=== PATIENT | female | born 1940 | race Caucasian/White ===

== ENCOUNTER → 2016-06-08 | Outpatient (CLI) | payer OTHER ==
[~2016-06-08] MED LIST: AMLO2.5T2 PO; ASCA500 PO; ASPEC81 PO; ASPI325T39 PO; BIOT50006 PO; CALC-323 PO; CYAN10005 PO; CYAN25006 PO; DABI150C PO; ERGO1TAB12 PO; ESOM1CAP34 PO; FRRS300 PO; FRS/40 PO; FURO-85 PO; GABA-113 PO; HYZ/10015 PO; LOSA100T65 PO; LOSA1TAB38 PO; MULT-506 PO; MULT60CA PO; MULTCHW PO; NEBI10TA2 PO; NRN600 PO; NRV/5 PO; OXYC1TAB3 PO; POTA8CAP6 PO; PRED1SUS3 OPR; SIMV10TA2 PO; TRAM-10 PO; ZINC PO; ZINC50TA36
[2016-06-08 17:37] LABS: BASO % 0.3 %; BASO ABS # 0.03 K/uL (0-0.2); COMPLETE YES; EOS % 2.7 %; HEMATOCRIT 33.7 % (37-47); IG% 0.3 %; LYMPH % 18.9 %; LYMPH ABS # 1.74 K/uL (1.2-3.4); MEAN CELL VOLUME 97.4 fL (80-100); MEAN CORPUSCULAR HEMOGLOBIN 32.4 pg (25-34); MEAN CORPUSCULAR HGB CONC 33.2 g/dl (32-36); MEAN PLATELET VOLUME 9.6 fL (7.4-10.4); MONO % 14.5 %; NEUT % 63.3 %; PLATELET COUNT 350 K/uL (130-400); RED BLOOD COUNT 3.46 M/uL (4.2-5.4); WHITE BLOOD COUNT 9.21 K/uL (4.8-10.8)
[2016-06-08 18:05] LABS: ALT/SGPT 31 U/L (12-78); AMYLASE 85 U/L (25-115); AST/SGOT 25 U/L (15-37); BLOOD UREA NITROGEN 32 mg/dl (7-18); BUN/CREATININE RATIO 32.5 (10-20); CALCIUM 9.8 mg/dl (8.5-10.1); CARBON DIOXIDE 30 mmol/L (21-32); CHLORIDE 107 mmol/L (98-107); GLUCOSE 124 mg/dl (70-99); POTASSIUM 3.7 mmol/L (3.5-5.1); SODIUM 144 mmol/L (136-145)
[2016-06-08 18:08] LABS: ALKALINE PHOSPHATASE 138 U/L (45-117)
== END | disposition home or self-care (01) ==
LOC: C.LAB1850 16:59
PROVIDERS: ATTEND Registered Nurse
DX: R74.8 Abnormal levels of other serum enzymes (principal)

== ENCOUNTER → 2016-06-14 | Outpatient (CLI) | payer OTHER ==
[~2016-06-14] MED LIST changes: +GADAVIST IV PRN
--- NOTE | 2016-06-14 14:41 | DIAGNOSTIC IMAGING REPORT ---
MRI OF THE BRAIN WITHOUT AND WITH IV CONTRAST CLINICAL HISTORY: R41.3 Memory [id number] POSSIBLE SEIZURE COMPARISON STUDY: No previous studies for comparison. TECHNIQUE: MRI of the brain was performed from the vertex to the skull base utilizing various T1 and T2 weighted sequences. Following the IV administration of 6.5 mL of Gadavist contrast, additional enhanced images were obtained. FINDINGS: Sagittal T1, axial diffusion, proton density and T2 weighted axial, coronal FLAIR, and pre and post axial T1-weighted images were acquired. These were supplemented with post gadolinium coronal T1 weighted images. No intra or extra-axial mass lesions are visualized. Axial diffusion-weighted images reveal no evidence of acute or subacute infarction. There is no evidence of ventricular dilatation. 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 There are extensive foci of increased T2 signal within the white matter, likely on a small vessel basis There are no abnormal flow voids. There is no evidence of pathologic enhancement. IMPRESSION: 1. No acute intracranial findings 2. No evidence of acute or subacute infarction 3. No evidence of intracranial mass 4. Old left cerebellar infarct 5. Moderately extensive foci of increased T2 signal within the white matter, likely on a small vessel basis Electronically signed by: David Underwood M.D. 06/14/2016 2:39 PM Dictated Date/Time: 06/14/2016 2:35 PM
== END | disposition home or self-care (01) ==
LOC: C.MRI 13:25
PROVIDERS: ATTEND Nurse Practitioner Adult Health
DX: R41.3 Other amnesia (principal)

== ENCOUNTER → 2016-06-21 | Outpatient (CLI) | payer OTHER ==
[~2016-06-21] MED LIST changes: -GADAVIST IV PRN
--- NOTE | 2016-06-21 16:37 | EEG Procedure Note ---
EEG Procedure Note Date of Service Jun 21, 2016. Start / End Times Start Time: 2:32 PM End Time: 2:52 PM Referring Physician ANCELMO [place] History This is a 75-year-old female who reports that she had a fall a few weeks ago with no memory of it. EEG for further evaluation of possible seizure etiology. Pertinent Home medications: Gabapentin Description This is a 21 electrode EEG with a single channel dedicated to limited EKG. The electrodes were placed in accordance with the International 10-20 system. At the start of the recording the patient was in an awake state. Background was well organized and composed of symmetric mixed alpha and beta frequencies. There was a symmetric well-formed moderate amplitude 9-10 Hz posterior dominant rhythm that was reactive to eye opening and closure. Hyperventilation was not done. Intermittent photic stimulation at various frequencies produced no abnormalities. There was no state changes or sleep transients. Interpretation This is a normal awake only routine EEG. There was no electrographic seizures or epileptiform discharges. Clinical Correlation A normal EEG does not rule out epilepsy if there is a strong clinical suspicion.
== END | disposition home or self-care (01) ==
LOC: C.NEUR 14:17
PROVIDERS: ATTEND Nurse Practitioner Adult Health
DX: R41.3 Other amnesia (principal)

== ENCOUNTER → 2016-07-26 | Outpatient (CLI) | payer OTHER ==
[2016-07-26 13:26] LABS: BLOOD UREA NITROGEN 30 mg/dl (7-18); BUN/CREATININE RATIO 34.9 (10-20); CALCIUM 9.2 mg/dl (8.5-10.1); CARBON DIOXIDE 28 mmol/L (21-32); CHLORIDE 102 mmol/L (98-107); CREATININE 0.86 mg/dl (0.60-1.20); GLUCOSE 103 mg/dl (70-99); MAGNESIUM 2.2 mg/dl (1.8-2.4); PHOSPHORUS 2.8 mg/dl (2.5-4.9); POTASSIUM 3.9 mmol/L (3.5-5.1); SODIUM 138 mmol/L (136-145)
== END | disposition home or self-care (01) ==
LOC: C.LAB1850 11:26
PROVIDERS: ATTEND Internal Medicine Nephrology
DX: N18.3 Chronic kidney disease, stage 3 (moderate) (principal)

== ENCOUNTER → 2016-08-23 | Outpatient (CLI) | payer OTHER ==
--- NOTE | 2016-08-23 13:04 | DIAGNOSTIC IMAGING REPORT ---
ULTRASOUND ART DOP LOWER EXT BILAT CLINICAL HISTORY: PAINFUL LOWER EXTREMITIES claudication. Pain. COMPARISON STUDY: None FINDINGS: Real-time as well as Doppler evaluation of the arterial structures of the lower legs was performed. Waveforms are triphasic throughout. Velocity characteristics are unremarkable. Minimal scattered plaque formation bilaterally. By report triphasic waveforms throughout. The following blood pressure indices were obtained. On the right, posterior tibial is 1.09 and dorsalis pedis is 1.02. On the left, posterior tibial is 0.94 and dorsalis pedis is 1.02. IMPRESSION: Minimal plaque formation bilaterally. No significant stenotic process. Electronically signed by: Byron Burrell M.D. 08/23/2016 1:02 PM Dictated Date/Time: 08/23/2016 1:01 PM
== END | disposition home or self-care (01) ==
LOC: C.ULTR 11:10
PROVIDERS: ATTEND Physician Assistant
DX: M54.5 Low back pain (principal)

== ENCOUNTER 2016-09-08 13:15 | Inpatient (IN) | payer OTHER ==
[~2016-09-08] VITALS: Ht 160 cm; Wt 75.4 kg
--- NOTE | 2016-09-08 13:45 | EMERGENCY ROOM VISIT NOTE ---
History Report prepared by Nahun: Eliceo Rincon Under the Supervision of: Dr. Brigido Tan M.D. First contact with patient: 13:27 Chief Complaint: SHORTNESS OF BREATH Stated Complaint: COUGH,WHEEZING IN THROAT,SOB Nursing Triage Summary: Pt presents with sob off/on for a month. Pt states, "I have wheezing in my throat. I saw my heart dr on Mon and he said it is because of my weight." NPC. History of Present Illness The patient is a 75 year old female who presents to the Emergency Room with complaints of worsening shortness of breath that started a week ago. She says that a month ago, she had a productive cough with congestion, and went to [facility] on August 15. She was prescribed Prednisone and Doxycycline, and the cough had subsided, until last week. The patient states that her cough started up again, and her shortness of breath has worsened. The patient gets short of breath with walking. She says that the more she coughs, the tighter her chest feels. The patient also notes that she has been having intermittent chills, fatigue and sore throat. The patient says that her fatigue has been so bad at times, that she fell asleep while watching a live hockey game. When the patient bends over, she says her shortness of breath worsens. She saw her administrative project coordinator 3 days ago, and the doctor said that he does not hear anything in her chest, and that the patient's problems may be due to her weight. She has gained 13 pounds recently. The patient denies any fevers. She also denies any recent trauma, injuries, or falls. She has a history of bypass surgery in September of last year. She has a history of heart blockages. The patient takes aspirin daily. Source of History: patient Onset: A week ago Position: other (global - shortness of breath) Timing: worsening Modifying Factors (Worsening): other (walking) Associated Symptoms: + chest pain (tightness), + chills, + cough, + fatigue , + sorethroat, No fevers Note: Associated symptoms: Congestion. No other associated symptoms noted. Review of Systems See HPI for pertinent positives & negatives. A total of 10 systems reviewed and were otherwise negative. Past Medical & Surgical Medical Problems: (1) Bronchitis (2) CHF (congestive heart failure) (3) Diabetes (4) Heart disease (5) HTN (hypertension) (6) PNA (pneumonia) Surgical Problems: (1) History of heart bypass surgery Old medical records were reviewed. Nurse's notes were reviewed and I agree with. Family History Diabetes mellitus FH: heart disease FHx: cancer FHx: gallbladder disease Hypertension Kidney disease Social History Smoking Status: Former Smoker Marital Status: Occupation Status: retired Current/Historical Medications Scheduled Amlodipine Besylate (Norvasc), 2.5 MG PO DAILY Ascorbic Acid (Vitamin C), 1,000 MG PO NOON Aspirin (Aspirin Ec), 325 MG PO DINNER Biotin (Biotin), 5,000 MCG PO QAM Calcium Citrate-Vitamin D (Citracal Maximum), 600 MG PO QAM Cyanocobalamin (Vitamin B-12), 2,500 MCG PO LUNCH Ergocalciferol (Vitamin D2), 1 TAB PO LUNCH Esomeprazole Magnesium (Esomeprazole Magnesium), 1 CAP PO UD Gabapentin (Neurontin), 300 MG PO QAM Gabapentin (Neurontin), 600 MG PO HS Hctz/Losartan (Hyzaar 25MG/100MG), 1 TAB PO QAM Multiple Vitamins W/ Minerals (Preservision Areds 2), 1 CAP PO BID Multiple Vitamins W/ Minerals (Centrum Silver), 1 TAB PO LUNCH Multivitamin (Multivitamin), 1 TAB PO TID Nebivolol Hcl (Bystolic), 10 MG PO QAM Prednisolone Acetate (Ophth) (Pred Forte 1% Oph), 1 DROPS OPR UD Simvastatin (Zocor), 10 MG PO QPM [Zinc], 25 MG PO HS Allergies Coded Allergies: Banana (Verified Allergy, Intermediate, HIVES/ITCHING, 09/08/16) Iodinated Diagnostic Agents (Verified Allergy, Intermediate, "CONTRAST"- HIVES/ITCHING, 09/08/16) Physical Exam Vital Signs Date Time Temp Pulse Resp B/P Pulse Ox O2 Delivery O2 Flow Rate FiO2 09/08/16 18:36 79 18 156/81 97 Nasal Cannula 2.0 09/08/16 17:56 95 Nasal Cannula 2.0 09/08/16 17:43 80 18 150/78 94 Room Air 09/08/16 16:48 76 20 152/66 93 Room Air 09/08/16 14:47 72 18 142/75 93 Room Air 09/08/16 13:22 37.1 79 18 161/77 95 Room Air Physical Exam General: Well developed well nourished non ill appearing female in no acute distress, breathing comfortably on room air. Normal speech HEENT: Normal cephalic atraumatic. Pupils are equal round and reactive to light. Extraocular movements are intact. Oropharynx is pink with moist mucous membranes. No swelling of the mouth lips or tongue. Neck: Supple with a midline trachea. No meningeal signs or stiffness, no JVD or bruits. No Stridor. Chest: Clear to auscultation bilaterally. No wheezes or rhonchi. No increased work of breathing. Heart: regular rate and rhythm. Abdomen: Soft nontender, nondistended without rebound guarding or rigidity. Extremities: No cyanosis or clubbing. No calf tenderness or assymetry. Trace pitting edema bilaterally. Spine/Back. Non tender to palpation. No CVA tenderness Skin: Good turgor without rashes. Neurologic exam: Cranial nerves two through 12 are intact. Motor and sensation are intact and symmetrical throughout. Medical Decision & Procedures ER Provider Diagnostic Interpretation: X-ray results as stated below per interpretation by me and the radiologist: CHEST ONE VIEW PORTABLE HISTORY: Atypical CHEST PAIN COMPARISON: None. FINDINGS: Poststernotomy changes. Cholecystectomy. The heart is mildly enlarged. Small bilateral pleural effusions. Diffuse interstitial vascular thickening consistent with mild pulmonary edema. IMPRESSION: Mild pulmonary edema with small bilateral pleural effusions. Electronically signed by: Richard Fletcher M.D. 09/08/2016 2:02 PM Dictated Date/Time: 09/08/2016 2:00 PM CHEST CTA for PULMONARY ARTERIES CT DOSE: 372.44 mGy.cm HISTORY: Chest pain dyspnea TECHNIQUE: Multiaxial CT images of the chest were performed following the intravenous administration of contrast to evaluate the pulmonary arteries. Maximal intensity projection images were also obtained. COMPARISON STUDY: None. 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 Moderate atherosclerotic change thoracic aorta. Pulmonary vasculature enhances appropriately. There are no filling defects. Underlying pulmonary vascular congestion. Scattered atelectatic change. Small bilateral pleural effusions. Fixed lateral hernia. IMPRESSION: 1. Study is negative for pulmonary embolus. 2. Pulmonary vascular congestion versus early congestive failure. 3. Large substernal thyroid. 4. Small bilateral pleural effusions. 5. Scattered atelectatic change. Electronically signed by: Byron Burrell M.D. 09/08/2016 4:38 PM Dictated Date/Time: 09/08/2016 4:22 PM Laboratory Results 09/08/16 13:50 Red Blood Count 3.02, Mean Corpuscular Volume 97.4, Mean Corpuscular Hemoglobin 32.5, Mean Corpuscular Hemoglobin Concent 33.3, Mean Platelet Volume 8.8, Neutrophils (%) (Auto) 63.5, Lymphocytes (%) (Auto) 18.6, Monocytes (%) (Auto) 14.3, Eosinophils (%) (Auto) 2.7, Basophils (%) (Auto) 0.3, Neutrophils # (Auto ) 4.41, Lymphocytes # (Auto) 1.29, Monocytes # (Auto) 0.99, Eosinophils # (Auto ) 0.19, Basophils # (Auto) 0.02 Test 09/08/16 13:50 09/08/16 13:54 White Blood Count 6.94 K/uL (4.8-10.8) Red Blood Count 3.02 M/uL (4.2-5.4) Hemoglobin 9.8 g/dL (12.0-16.0) Hematocrit 29.4 % (37-47) Mean Corpuscular Volume 97.4 fL (80-100) Mean Corpuscular Hemoglobin 32.5 pg (25-34) Mean Corpuscular Hemoglobin Concent 33.3 g/dl (32-36) Platelet Count 328 K/uL (130-400) Mean Platelet Volume 8.8 fL (7.4-10.4) Neutrophils (%) (Auto) 63.5 % Lymphocytes (%) (Auto) 18.6 % Monocytes (%) (Auto) 14.3 % Eosinophils (%) (Auto) 2.7 % Basophils (%) (Auto) 0.3 % Neutrophils # (Auto) 4.41 K/uL (1.4-6.5) Lymphocytes # (Auto) 1.29 K/uL (1.2-3.4) Monocytes # (Auto) 0.99 K/uL (0.11-0.59) Eosinophils # (Auto) 0.19 K/uL (0-0.5) Basophils # (Auto) 0.02 K/uL (0-0.2) RDW Standard Deviation 47.8 fL (36.4-46.3) RDW Coefficient of Variation 13.7 % (11.5-14.5) Immature Granulocyte % (Auto) 0.6 % Immature Granulocyte # (Auto) 0.04 K/uL (0.00-0.02) Erythrocyte Sedimentation Rate 61 mm/hr (0-21) Absolute Reticulocyte Count 0.08 10^6/uL (0.02-0.10) Percent Reticulocyte Count 2.9 % (0.5-2.0) Prothrombin Time 10.8 SECONDS (9.0-12.0) Prothromb Time International Ratio 1.0 (0.9-1.1) Total Bilirubin 0.5 mg/dl (0.2-1) Direct Bilirubin 0.2 mg/dl (0-0.2) Aspartate Amino Transf (AST/SGOT) 26 U/L (15-37) Alanine Aminotransferase (ALT/SGPT) 35 U/L (12-78) Alkaline Phosphatase 128 U/L (45-117) Total Creatine Kinase 41 U/L (26-192) Creatine Kinase MB 1.2 ng/ml (0.5-3.6) Creatine Kinase MB Ratio 2.9 (0-3.0) Total Protein 7.2 gm/dl (6.4-8.2) Albumin 3.2 gm/dl (3.4-5.0) Lipase 114 U/L (73-393) Thyroid Stimulating Hormone (TSH) 0.558 uIu/ml (0.300-4.500) Bedside D-Dimer > 450 ng/mlFEU (0-450) Bedside Troponin I 0.000 ng/ml (0-0.045) HE-Dll-F-Type Natriuretic Peptide 3263 pg/ml (0-1800) Laboratory studies as stated above per my review. ECG Indication: SOB/dyspnea Rate (beats per minute): 68 Rhythm: atrial fibrillation Findings: no acute ischemic change, other (RBBB) Comparison ECG Date: no prior available ED Course 1330: Past medical records reviewed. The patient was evaluated in room B9, and a complete history and physical examination were performed. 1655: Upon reevaluation, the patient is resting comfortably. I discussed the results and treatment plan with the patient. She verbalized agreement of the treatment plan. The patient will be evaluated for further management. 1721: I discussed the patient with Dr. Geovanna MORRISON hospitalist - he will evaluate the patient for further treatment. Medical Decision Differentials include, but are not limited to; bronchitis, pneumonia, CHF, pulmonary embolus, anemia, electrolyte or metabolic abnormality. This patient comes in as described above. She's been having cough and wheezing for about a month. She was seen by her administrative project coordinator on Monday who do not feel any other tests were indicated at that point. She was concerned that her symptoms been going on so long so she came here today. She does look well and on exam she has no wheezing or stridor on exam. She's not hypoxemic. She has a trace to 1+ pedal edema. EKG, chest x-ray, multiple blood testing was was obtained. She was reassessed frequently. Chest x-ray shows congestive heart failure changes. EKG has a bundle branch block what appears to be A. fib. There is no old EKG available for comparison. her BNP was elevated also supporting the diagnosis of CHF. Her troponin is not elevated. She has no significant electrolyte or metabolic abnormalities. D-dimer is elevated and in light of this, I did a chest CT and there was no evidence of PE. I do think she is be admitted for further cardiac evaluation. She has a cardiac history however has never had CHF or A. fib and appears to have both at this point. I have consulted Dr. Arizmendi. The [facility] Hospitalist group saw her and she will be admitted for these measures.. Consults Time Called: 1700 Consulting Physician: Dr. Geovanna MORRISON hospitalist Returned Call: 1721 I discussed the patient with Dr. Geovanna MORRISON hospitalist - he will evaluate the patient for further treatment. Impression Primary Impression: Congestive heart failure Additional Impression: Atrial fibrillation Scribe Attestation The scribe's documentation has been prepared under my direction and personally reviewed by me in its entirety. I confirm that the note above accurately reflects all work, treatment, procedures, and medical decision making performed by me. Departure Information Dispostion Being Evaluated By Hospitalist Referrals Shanika Turcios C.R.N.P. (PCP) Patient Instructions My [facility] Problem Qualifiers
[2016-09-08 14:04] LABS: BASO % 0.3 %; BASO ABS # 0.02 K/uL (0-0.2); COMPLETE YES; EOS % 2.7 %; HEMATOCRIT 29.4 % (37-47); IG% 0.6 %; LYMPH % 18.6 %; LYMPH ABS # 1.29 K/uL (1.2-3.4); MEAN CELL VOLUME 97.4 fL (80-100); MEAN CORPUSCULAR HEMOGLOBIN 32.5 pg (25-34); MEAN CORPUSCULAR HGB CONC 33.3 g/dl (32-36); MEAN PLATELET VOLUME 8.8 fL (7.4-10.4); MONO % 14.3 %; NEUT % 63.5 %; PLATELET COUNT 328 K/uL (130-400); RED BLOOD COUNT 3.02 M/uL (4.2-5.4); WHITE BLOOD COUNT 6.94 K/uL (4.8-10.8)
--- NOTE | 2016-09-08 14:04 | DIAGNOSTIC IMAGING REPORT ---
CHEST ONE VIEW PORTABLE HISTORY: Atypical CHEST PAIN COMPARISON: None. FINDINGS: Poststernotomy changes. Cholecystectomy. The heart is mildly enlarged. Small bilateral pleural effusions. Diffuse interstitial vascular thickening consistent with mild pulmonary edema. IMPRESSION: Mild pulmonary edema with small bilateral pleural effusions. Electronically signed by: Richard Fletcher M.D. 09/08/2016 2:02 PM Dictated Date/Time: 09/08/2016 2:00 PM
[2016-09-08 14:15] LABS: PARTIAL THROMBOPLASTIN RATIO 1.1; PROTHROMBIN TIME (PATIENT) 10.8 SECONDS (9.0-12.0)
[2016-09-08 14:18] LABS: POINT OF CARE PRO-BNP 3263 pg/ml (0-1800)
[2016-09-08 14:31] LABS: BUN/CREATININE RATIO 29.3 (10-20); CALCIUM 9.2 mg/dl (8.5-10.1); CREATININE 0.97 mg/dl (0.60-1.20); POTASSIUM 3.8 mmol/L (3.5-5.1)
[2016-09-08 14:42] LABS: CKMB/CK RATIO 2.9 (0-3.0); THYROID STIMULATING HORMONE 0.558 uIu/ml (0.300-4.500)
[2016-09-08] MEDS ORDERED: PRED1SUS3 OPR (14:42)
[2016-09-08] MEDS ORDERED: ESOM1CAP34 PO (14:43)
[2016-09-08] MEDS ORDERED: HYZ/10015 PO (14:57)
[2016-09-08] MEDS ORDERED: BIOT50006 PO (14:57)
[2016-09-08] MEDS ORDERED: NEBI10TA2 PO (14:57)
[2016-09-08] MEDS ORDERED: ERGO1TAB12 PO (14:57)
[2016-09-08] MEDS ORDERED: GABA-113 PO ×2 (14:57→15:04)
[2016-09-08] MEDS ORDERED: ASCA500 PO (14:57)
[2016-09-08] MEDS ORDERED: AMLO2.5T2 PO (14:57)
[2016-09-08] MEDS ORDERED: MULTCHW PO (14:57)
[2016-09-08] MEDS ORDERED: MULT60CA PO (14:57)
[2016-09-08] MEDS ORDERED: MULT-506 PO (14:57)
[2016-09-08] MEDS ORDERED: CYAN10005 PO (14:57)
[2016-09-08] MEDS ORDERED: CALC-323 PO (14:57)
[2016-09-08] MEDS ORDERED: SIMV10TA2 PO (15:04)
[2016-09-08] MEDS ORDERED: ZINC PO (15:04)
[2016-09-08] MEDS ORDERED: ASPI325T39 PO (15:04)
[2016-09-08] MEDS ORDERED: OPTIRAY 320 IV PRN (16:30)
--- NOTE | 2016-09-08 16:40 | DIAGNOSTIC IMAGING REPORT ---
CHEST CTA for PULMONARY ARTERIES CT DOSE: 372.44 mGy.cm HISTORY: Chest pain dyspnea TECHNIQUE: Multiaxial CT images of the chest were performed following the intravenous administration of contrast to evaluate the pulmonary arteries. Maximal intensity projection images were also obtained. COMPARISON STUDY: None. 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 Moderate atherosclerotic change thoracic aorta. Pulmonary vasculature enhances appropriately. There are no filling defects. Underlying pulmonary vascular congestion. Scattered atelectatic change. Small bilateral pleural effusions. Fixed lateral hernia. IMPRESSION: 1. Study is negative for pulmonary embolus. 2. Pulmonary vascular congestion versus early congestive failure. 3. Large substernal thyroid. 4. Small bilateral pleural effusions. 5. Scattered atelectatic change. Electronically signed by: Byron Burrell M.D. 09/08/2016 4:38 PM Dictated Date/Time: 09/08/2016 4:22 PM
--- NOTE | 2016-09-08 17:30 | History and Physical ---
History & Physical Date & Time of Service: Sep 08, 2016 at 17:22 Chief Complaint: Cough,Wheezing In Throat,Sob Primary Care Physician: Shanika Turcios C.R.N.P. History of Present Illness Source: patient 4 weeks ago, patient developed a cough and also associated SOB, which has progressed to exertional SOB. Cough was initially productive of yellow sputum, which resolved with antibiotics (Doxycycline) and prednisone taper, and since has become dry. Robitussin and Coricidin has not been effective and helping to reduce symptoms. SOB continues and is exacerbated on bending forward or crouching down, SOB absent rest. Patient doesn't feel chest pain, just chest pressure/tightness, especially with the coughing. But denies that this feels like her previous MIs. Had one episode flushing followed by chills, but has denied fevers otherwise. No nausea, no diaphoresis, does feel lightheaded when bending over. Had a syncopal episode on May 24. Patient has been less active due to back pain exacerbated since April. As such, she was aware of herself gaining weight, but was only prescribed aerobic exercise which she was not able to tolerate. Her weight gain is from 146lb in to 169lb on 09/05. Patient has had longstanding issues with balance due to previous stroke (seen by Dr. Odonnell). Patient remains active around the house. Patient has been sleeping in a recliner due to her back pain. Patient unsure of orthopnea since she doesn't ever lie flat, but she does describe PND. She has noticed some pedal edema. Patient has been previously found to be anemic and was on iron supplements for 10 years up until 6 years ago when iron was found to be overloaded. She did require blood transfusions in 2009, which may have contributed to the iron overload. She denies blood in stool or urine, but does have occasional large bruises. Colonoscopy in 2013: showed a few polyps which were removed. She is on high dose aspirin at home as she was planning to finish the previously dispensed medication before going to the 81mg dose. Putty Remover: Dr. 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 45 pack year history) Smokeless Tobacco Use: No Alcohol Use: 2 drinks of southern comfort nightly Drug Use: none Marital Status: Housing status: lives alone Occupational Status: retired Allergies Coded Allergies: Banana (Verified Allergy, Intermediate, HIVES/ITCHING, 09/08/16) Iodinated Diagnostic Agents (Verified Allergy, Intermediate, "CONTRAST"- HIVES/ITCHING, 09/08/16) Home Medications Scheduled Amlodipine Besylate (Norvasc), 2.5 MG PO DAILY Ascorbic Acid (Vitamin C), 1,000 MG PO NOON Aspirin (Aspirin Ec), 325 MG PO DINNER Biotin (Biotin), 5,000 MCG PO QAM Calcium Citrate-Vitamin D (Citracal Maximum), 600 MG PO QAM Cyanocobalamin (Vitamin B-12), 2,500 MCG PO LUNCH Ergocalciferol (Vitamin D2), 1 TAB PO LUNCH Esomeprazole Magnesium (Esomeprazole Magnesium), 1 CAP PO UD Gabapentin (Neurontin), 300 MG PO QAM Gabapentin (Neurontin), 600 MG PO HS Hctz/Losartan (Hyzaar 25MG/100MG), 1 TAB PO QAM Multiple Vitamins W/ Minerals (Preservision Areds 2), 1 CAP PO BID Multiple Vitamins W/ Minerals (Centrum Silver), 1 TAB PO LUNCH Multivitamin (Multivitamin), 1 TAB PO TID Nebivolol Hcl (Bystolic), 10 MG PO QAM Prednisolone Acetate (Ophth) (Pred Forte 1% Oph), 1 DROPS OPR UD Simvastatin (Zocor), 10 MG PO QPM [Zinc], 25 MG PO HS Review of Systems Constitutional: + chills, + fatigue, No fever, No sweats Respiratory: + cough, + dyspnea on exertion, + shortness of breath, + wheezing , No dyspnea at rest, No hemoptysis, No sputum Cardiovascular: + PND, + chest pain, + edema, No orthopnea, No palpitations Abdomen: + diarrhea, No GI bleeding, No constipation, No nausea, No pain, No vomiting Musculoskeletal: + muscle pain, + problem reported (Back pain) Genitourinary - Female: No dysuria, No hematuria Allergic / Immunologic: + food allergies (bananas), + seasonal allergies, No environmental allergies Physical Exam Vital Signs Date Time Temp Pulse Resp B/P Pulse Ox O2 Delivery O2 Flow Rate FiO2 09/08/16 16:48 76 20 152/66 93 Room Air 09/08/16 14:47 72 18 142/75 93 Room Air 09/08/16 13:22 37.1 79 18 161/77 95 Room Air General Appearance: WD/WN, + mild distress Head: normocephalic, atraumatic Eyes: normal inspection, EOMI, sclerae normal, + pertinent finding ( Conjunctival pallor) ENT: hearing grossly normal, pharynx normal Neck: supple, no adenopathy, + JVD Respiratory/Chest: chest non-tender, lungs clear, no accessory muscle use, + respiratory distress, + decreased breath sounds (bibasilar) Cardiovascular: normal peripheral pulses, + JVD, + irregularly irregular Abdomen/GI: normal bowel sounds, non tender, soft, no organomegaly Extremities/Musculoskelatal: no calf tenderness, normal capillary refill, + pedal edema Neurologic/Psych: alert, normal mood/affect, oriented x 3 Skin: normal color, warm/dry, no rash Diagnostics Laboratory Results Results Past 24 Hours Test 09/08/16 13:39 09/08/16 13:50 09/08/16 13:54 Range/Units Creatine Kinase MB Ratio 2.9 0-3.0 White Blood Count 6.94 4.8-10.8 K/uL Red Blood Count 3.02 4.2-5.4 M/uL Hemoglobin 9.8 12.0-16.0 g/dL Hematocrit 29.4 37-47 % Mean Corpuscular Volume 97.4 80-100 fL Mean Corpuscular Hemoglobin 32.5 25-34 pg Mean Corpuscular Hemoglobin Concent 33.3 32-36 g/dl Platelet Count 328 130-400 K/uL Mean Platelet Volume 8.8 7.4-10.4 fL Neutrophils (%) (Auto) 63.5 % Lymphocytes (%) (Auto) 18.6 % Monocytes (%) (Auto) 14.3 % Eosinophils (%) (Auto) 2.7 % Basophils (%) (Auto) 0.3 % Neutrophils # (Auto) 4.41 1.4-6.5 K/uL Lymphocytes # (Auto) 1.29 1.2-3.4 K/uL Monocytes # (Auto) 0.99 0.11-0.59 K/uL Eosinophils # (Auto) 0.19 0-0.5 K/uL Basophils # (Auto) 0.02 0-0.2 K/uL RDW Standard Deviation 47.8 36.4-46.3 fL RDW Coefficient of Variation 13.7 11.5-14.5 % Immature Granulocyte % (Auto) 0.6 % Immature Granulocyte # (Auto) 0.04 0.00-0.02 K/uL Prothrombin Time 10.8 9.0-12.0 SECONDS Prothromb Time International Ratio 1.0 0.9-1.1 Activated Partial Thromboplast Time 27.4 21.0-31.0 SECONDS Partial Thromboplastin Ratio 1.1 Sodium Level 145 136-145 mmol/L Potassium Level 3.8 3.5-5.1 mmol/L Chloride Level 108 98-107 mmol/L Carbon Dioxide Level 29 21-32 mmol/L Anion Gap 8.0 3-11 mmol/L Blood Urea Nitrogen 28 7-18 mg/dl Creatinine 0.97 0.60-1.20 mg/dl Est Creatinine Clear Calc Drug Dose 48.6 ml/min Estimated GFR () 65.8 Estimated GFR (Non- 56.7 BUN/Creatinine Ratio 29.3 10-20 Random Glucose 106 70-99 mg/dl Calcium Level 9.2 8.5-10.1 mg/dl Total Bilirubin 0.5 0.2-1 mg/dl Direct Bilirubin 0.2 0-0.2 mg/dl Aspartate Amino Transf (AST/SGOT) 26 15-37 U/L Alanine Aminotransferase (ALT/SGPT) 35 12-78 U/L Alkaline Phosphatase 128 45-117 U/L Total Creatine Kinase 41 26-192 U/L Creatine Kinase MB 1.2 0.5-3.6 ng/ml Total Protein 7.2 6.4-8.2 gm/dl Albumin 3.2 3.4-5.0 gm/dl Lipase 114 73-393 U/L Thyroid Stimulating Hormone (TSH) 0.558 0.300-4.500 uIu/ml Bedside D-Dimer > 450 0-450 ng/mlFEU Bedside Troponin I 0.000 0-0.045 ng/ml VH-Dwb-E-Type Natriuretic Peptide 3263 0-1800 pg/ml Diagnostic Radiology CHEST CTA for PULMONARY ARTERIES 1. Study is negative for pulmonary embolus. 2. Pulmonary vascular congestion versus early congestive failure. 3. Large substernal thyroid. 4. Small bilateral pleural effusions. 5. Scattered atelectatic change. other (Mild pulmonary edema with small bilateral pleural effusions.) EKG Atrial fibrillation Right bundle branch block Abnormal ECG No previous ECGs available No prior EKG available Impression Assessment and Plan 75 year old female with history of multiple MD's, CVA admitted for CHF and new onset atrial fibrillation CHF with hypoxia - Started IV Lasix 40mg qAM - Started PO Spironolactone 25mg qAM - I/O's, daily weights - O2 via NC as per protocol - Monitor BMP Anemia - Anemia work up: ferritin, TIBC, retic count, ESR, B12, folate, FOBT - Monitor H/H - Consider GI consult to rule out gastritis - Started on PO famotidine 20mg BID (on esomeprazole at home, which may need to be discontinued if low Mg+) New onset atrial fibrillation - Repeat EKG - Echo - Cardiology consult - On low dose heparin for anticoagulation CAD - MD in 1978, 1993, 1995, s/p CABG 2016 for blocked coronary vessel - Last stress echo 2014 - Serial trops q8h x 3 - Repeat EKG - Echo - Continue aspirin 325mg daily, simvastatin 10mg HS DM - partial pancreatectomy performed in 2009 - Diet controlled HTN - Continue amlodipine 2.5mg daily, HCT/Losartan 25mg/100mg qAM Back pain - Continue gabapentin 300mg qAM, 600mg qPM and hydrocodone PRN Season asthma - Albuterol neb PRN 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 Y/N: Yes Risk Level: Moderate Given or contraindicated: Unfractionated heparin SQ Social Service Consult None Apply Assessment and Plan Attending Addendum: I have physically seen and examined this patient, have directed their medical care, have supervised the medical residents activities, and agree with the H&P as noted above, with the following changes: NONE
[2016-09-08] MEDS ORDERED: ONDANSETRON INJ 2 MG/ML 2 ML VIAL IV PRN (18:30)
[2016-09-08] MEDS ORDERED: POLYETHYLENE (MIRALAX) 17 GM PACK PO PRN (18:30)
[2016-09-08] MEDS ORDERED: MINERALS PO SCH (18:30)
[2016-09-08] MEDS ORDERED: MAGNESIUM HYDROXIDE SUSP 30 ML UDC PO PRN (18:30)
[2016-09-08] MEDS ORDERED: MULTIPLE VITAMINS PO SCH (18:30)
[2016-09-08] MEDS ORDERED: NITROGLYCERIN 0.4 MG SL PER TAB CHARGE SL PRN (18:30)
[2016-09-08] MEDS ORDERED: ACETAMINOPHEN 325 MG TAB PO PRN (18:30)
[2016-09-08] MEDS ORDERED: FUROSEMIDE INJ 40 MG in SYRINGE 0 ML IV ONE (18:53)
[2016-09-08] MEDS ORDERED: FUROSEMIDE 40 MG/4 ML VIAL ONE (19:14)
[2016-09-08 19:40] VITALS: BP 150/81; PULSE 85; TEMP 36.8; O2SAT 98; Ht 160 cm; Wt 75.4 kg
[2016-09-08] MEDS ORDERED: HEPARIN IV LOW DOSE NO BOLUS SCH (19:41)
[2016-09-08] MEDS ORDERED: ALBUTEROL 0.5% NEB SOLN 2.5 MG/0.5 ML VIAL INH PRN (20:00)
[2016-09-08 20:20] LABS: PARTIAL THROMBOPLASTIN RATIO 1.1
[2016-09-08 20:37] LABS: BUN/CREATININE RATIO 20.1 (10-20); CALCIUM 9.2 mg/dl (8.5-10.1); CREATININE 1.3 mg/dl (0.60-1.20); MAGNESIUM 2.1 mg/dl (1.8-2.4); POTASSIUM 3.7 mmol/L (3.5-5.1)
[2016-09-08] MEDS: MULTIVITAMIN TAB PO SCH (20:37)
[2016-09-08] MEDS: CEROVITE ADV FORMULA TAB PO SCH (20:37)
[2016-09-08] MEDS: SIMVASTATIN 10 MG TAB PO SCH (20:37)
[2016-09-08 20:38] LABS: FERRITIN 322.9 ng/ml (8.0-388.0); PHOSPHORUS 3.6 mg/dl (2.5-4.9)
[2016-09-08] MEDS: GABAPENTIN 600 MG TAB PO SCH (20:38)
[2016-09-08] MEDS: FAMOTIDINE 20 MG TAB PO SCH (20:38)
[2016-09-08] MEDS: NITROGLYCERIN OINT 2% 1GM PACKET EXT SCH (20:38)
[2016-09-08] MEDS ORDERED: ZINC 25 MG PO SCH (21:00)
[2016-09-08] MEDS ORDERED: HEPARIN 25,000 UNIT/500ML D5W 500 ML IV PRN (21:00)
[2016-09-08] MEDS: MoRPHine SULFATE 2 MG/ML CARP IV PRN (23:07)
[2016-09-08 23:39] VITALS: BP 160/74; PULSE 72; TEMP 37.1; O2SAT 91
[2016-09-09] MEDS: NITROGLYCERIN OINT 2% 1GM PACKET EXT SCH ×3 (02:00→13:24)
[2016-09-09] MEDS: MoRPHine SULFATE 2 MG/ML CARP IV PRN (02:46)
[2016-09-09 02:59] LABS: BASO % 0.3 %; BASO ABS # 0.02 K/uL (0-0.2); COMPLETE YES; EOS % 3.1 %; IG% 0.4 %; LYMPH % 22.4 %; LYMPH ABS # 1.52 K/uL (1.2-3.4); MEAN CELL VOLUME 96.9 fL (80-100); MEAN CORPUSCULAR HEMOGLOBIN 32.9 pg (25-34); MEAN CORPUSCULAR HGB CONC 33.9 g/dl (32-36); MEAN PLATELET VOLUME 8.6 fL (7.4-10.4); MONO % 16.3 %; NEUT % 57.5 %; PLATELET COUNT 309 K/uL (130-400); RED BLOOD COUNT 2.89 M/uL (4.2-5.4); WHITE BLOOD COUNT 6.79 K/uL (4.8-10.8)
[2016-09-09 03:10] LABS: PARTIAL THROMBOPLASTIN RATIO 1.3
[2016-09-09 03:23] LABS: BUN/CREATININE RATIO 21.7 (10-20); CALCIUM 8.7 mg/dl (8.5-10.1); CREATININE 1.2 mg/dl (0.60-1.20); MAGNESIUM 1.9 mg/dl (1.8-2.4); POTASSIUM 3.3 mmol/L (3.5-5.1)
[2016-09-09 03:32] VITALS: BP 158/90; PULSE 78; TEMP 37; O2SAT 96
[2016-09-09 03:33] LABS: PHOSPHORUS 4.2 mg/dl (2.5-4.9)
[2016-09-09] MEDS ORDERED: HEPARIN IV BOLUS 4,000 UNIT in SYRINGE 0 ML IV ONE (04:00)
[2016-09-09] MEDS ORDERED: PANTOprazole SOD 40 MG TAB PO SCH (07:30)
[2016-09-09 07:37] VITALS: BP 153/65; PULSE 70; TEMP 36.8; O2SAT 91
[2016-09-09] MEDS: PrednisoLONE ACET 1% OP SUSP 5 ML BTL OPR SCH (07:58)
[2016-09-09] MEDS: NEBIVOLOL HCL 5 MG TAB PO SCH (08:03)
[2016-09-09] MEDS: CALCIUM 600MG + VIT D 400 IU TAB PO SCH (08:03)
[2016-09-09] MEDS: LOSARTAN/HCTZ 50-12.5 EA TAB PO SCH (08:04)
[2016-09-09] MEDS: CEROVITE ADV FORMULA TAB PO SCH ×2 (08:04→20:40)
[2016-09-09] MEDS: GABAPENTIN 300 MG CAP PO SCH (08:04)
[2016-09-09] MEDS: AMLODIPINE BESYLATE 5 MG TAB PO SCH (08:05)
[2016-09-09] MEDS: FAMOTIDINE 20 MG TAB PO SCH ×2 (08:05→20:40)
[2016-09-09] MEDS: MULTIVITAMIN TAB PO SCH ×3 (08:37→21:00)
[2016-09-09] MEDS: POTASSIUM CHLR 10 MEQ / WTR 10 MEQ in PREMIXED WATER 100 ML IV SCH ×2 (08:37→10:41)
[2016-09-09] MEDS ORDERED: NON-FORMULARY MEDICATION (Biotin 5,000 MCG) PO SCH (09:00)
[2016-09-09] MEDS ORDERED: SPIRONOLACTONE 25 MG TAB PO SCH (09:00)
[2016-09-09] MEDS ORDERED: ASPIRIN 81 MG ECTAB PO SCH (09:00)
[2016-09-09] MEDS ORDERED: FUROSEMIDE INJ 40 MG in SYRINGE 0 ML IV SCH (09:00)
[2016-09-09] MEDS ORDERED: ASPIRIN 325 MG ECTAB PO SCH (09:00)
--- NOTE | 2016-09-09 09:01 | ECHOCARDIOGRAM REPORT ---
*NOTICE TO RECEIVING [employer] This information is strictly Confidential and protected under [place] law. [place] law prohibits you from making any further disclosure of this information unless further disclosure is expressly permitted by the written consent of the person to whom it pertains or is authorized by law. A general authorization for the release of medical or other information is not sufficient for this purpose. Hospital accepts no responsibility if the information is made available to any other person, INCLUDING THE PATIENT. Interpretation Summary * Name: ISIDRO GRAY Study Date: 09/09/2016 07:03 AM BP: 158/90 mmHg * Patient Location: C.2T\S\S230\S\2 HR: 78 * : 1940 (M/d/yyyy) Gender: Female Height: 63 in * Age: 75 yrs Ethnicity: CA Weight: 170 lb * Ordering Physician: Mily Agustin. * Referring Physician: Shanika Turcios * Performed By: Corie Winn * * Reason For Study: CHF * BSA: 1.8 m2 * -- Conclusions -- * There is mild concentric left ventricular hypertrophy. * Left ventricular systolic function is normal. * The right ventricular systolic function is mildly reduced. * There is moderate mitral annular calcification. * There is mild to moderate mitral regurgitation. * Right ventricular systolic pressure is elevated at 40-50mmHg. Procedure Details * A complete two-dimensional transthoracic echocardiogram was performed (2D, M-mode, Doppler and color flow Doppler). Left Ventricle * The left ventricle is normal in size. * There is mild concentric left ventricular hypertrophy. * Ejection Fraction = 50-55%. * Left ventricular systolic function is normal. * Moderate hypokinesis of the basal lateral wall. Right Ventricle * Borderline right ventricular enlargement. * The right ventricular systolic function is mildly reduced. * The right ventricular systolic function is reduced as assessed by tricuspid annular plane systolic excursion (TAPSE) (TAPSE <1.6 cm). Atria * The left atrial size is normal. * Right atrial size is normal. Mitral Valve * The mitral valve leaflets appear thickened, but open well. * There is moderate mitral annular calcification. * There is mild to moderate mitral regurgitation. Tricuspid Valve * The tricuspid valve is not well visualized, but is grossly normal. * There is mild tricuspid regurgitation. * Right ventricular systolic pressure is elevated at 40-50mmHg. Aortic Valve * The aortic valve is tricuspid. The leaflet thickness if normal. There is no aortic stenosis, and no significant insufficiency. * Reduced opening without significant stenosis * There is no significant aortic regurgitation. Great Vessels * The aortic root and proximal ascending aorta are normal sized. Pericardium/Pleural * There is no pericardial effusion. Great Vessels * Dilated inferior vena cava with reduced collapsability with sniff indicates an elevated right atrial pressure of 15 mmHg MMode 2D Measurements and Calculations IVSd 1.7 cm IVSs 2.5 cm LVIDd 5.1 cm LVIDs 3.8 cm LVPWd 1.2 cm LVPWs 1.8 cm IVS/LVPW 1.5 FS 25.2 % EDV(Teich) 123.7 ml ESV(Teich) 62.5 ml EF(Teich) 49.5 % EDV(cubed) 132.6 ml ESV(cubed) 55.5 ml EF(cubed) 58.2 % % IVS thick 45.3 % % LVPW thick 53.8 % LV mass(C)d 314.8 grams LV mass(C)dI 174.5 grams/m\S\2 LV mass(C)s 399.1 grams LV mass(C)sI 221.2 grams/m\S\2 SV(Teich) 61.2 ml SI(Teich) 33.9 ml/m\S\2 SV(cubed) 77.1 ml SI(cubed) 42.7 ml/m\S\2 EPSS 0.82 cm ACS 1.1 cm LA dimension 3.9 cm asc Aorta Diam 3.0 cm LVOT diam 1.8 cm LVOT area 2.6 cm\S\2 LVAd ap4 28.1 cm\S\2 LVLd ap4 7.8 cm EDV(MOD-sp4) 81.1 ml EDV(sp4-el) 85.7 ml LVAs ap4 17.7 cm\S\2 LVLs ap4 6.6 cm ESV(MOD-sp4) 38.6 ml ESV(sp4-el) 39.9 ml EF(MOD-sp4) 52.4 % EF(sp4-el) 53.4 % LVAd ap2 28.8 cm\S\2 LVLd ap2 8.2 cm EDV(MOD-sp2) 84.4 ml EDV(sp2-el) 86.2 ml LVAs ap2 17.7 cm\S\2 LVLs ap2 6.8 cm ESV(MOD-sp2) 38.8 ml ESV(sp2-el) 38.7 ml EF(MOD-sp2) 54.0 % EF(sp2-el) 55.1 % LVLd %diff 3.9 % EDV(MOD-bp) 81.3 ml LVLs %diff 3.0 % ESV(MOD-bp) 39.0 ml EF(MOD-bp) 52.0 % SV(MOD-sp4) 42.5 ml SI(MOD-sp4) 23.5 ml/m\S\2 SV(MOD-sp2) 45.6 ml SI(MOD-sp2) 25.3 ml/m\S\2 SV(MOD-bp) 42.3 ml SI(MOD-bp) 23.4 ml/m\S\2 SV(sp4-el) 45.8 ml SI(sp4-el) 25.4 ml/m\S\2 SV(sp2-el) 47.5 ml SI(sp2-el) 26.3 ml/m\S\2 Doppler Measurements and Calculations MV E max josie 149.4 cm/sec MV dec time 0.23 sec Ao V2 max 231.1 cm/sec Ao max PG 21.4 mmHg Ao max PG (full) -37.76 mmHg JENNIFER(V,A) 3.6 cm\S\2 JENNIFER(V,D) 3.6 cm\S\2 LV V1 max PG 59.1 mmHg LV V1 mean PG 69.9 mmHg LV V1 max 322.3 cm/sec LV V1 mean 395.1 cm/sec LV V1 VTI 177.4 cm MR max josie 528.0 cm/sec MR max PG 111.5 mmHg MR mean josie 371.9 cm/sec MR mean PG 63.4 mmHg MR VTI 163.6 cm SV(LVOT) 458.6 ml SI(LVOT) 254.1 ml/m\S\2 PA V2 max 122.9 cm/sec PA max PG 6.0 mmHg PI end-d josie 150.7 cm/sec TR max josie 284.9 cm/sec
--- NOTE | 2016-09-09 10:23 | Clinical Documentation Query ---
CLINICAL DOCUMENTATION QUERY 75 year old female who presents to the Emergency Room with complaints of worsening shortness of breath. H&P is diagnosing CHF. It is also important to note that new changes in requirements for documentation of patient clinical severity include the diagnosis of heart failure. The medical record documentation is now expected to include definitive and explicit description of the patient's heart failure; vague terms such as "heart failure," ventricular dysfunction," and "CHF" may not fully capture the physician's intended level of severity. Query #1/2 In your clinical opinion is this patient being managed for: ( ) Acute right ventricular systolic heart failure treated with IV Lasix. ( ) Acute diastolic CHF ( ) Other explanation of clinical findings (Please Explain) ( ) Unable to determine (Please Define) ( ) Need to Discuss ( ) Not Agree The medical record reflects the following clinical findings, treatment, and risk factors. Clinical Indicators: CHF, Hypoxia, CXR showing mild pulmonary edema with small bilateral pleural effusions. Echo showed Echo showed mild LV hypertrophy, normal EF, and reduced right ventricular systolic function. Treatment: IV Lasix, telemetry, daily weights, I/O's, cardiology consult. Risk Factors: Age, CAD, HTN, ?CKD. Query #2/2 In your clinical opinion is this patient being managed for: ( ) CKD stage 2-3 ( ) Other explanation of clinical findings (Please Explain) ( ) Unable to determine (Please Define) ( ) Need to Discuss ( ) Not Agree The medical record reflects the following clinical findings, treatment, and risk factors. Clinical Indicators: BUN 28, Creatinine 0.97, GFR 56.7. Treatment: daily PRP's Risk Factors: Age, HTN, DM, Please clarify and document your clinical opinion in the progress notes and discharge summary. Terms such as "probable", "suspected", "likely", "questionable", "possible", or "still to be ruled out" are acceptable. IF IN AGREEMENT, YOU MUST DOCUMENT ABOVE DIAGNOSTIC STATEMENT IN DAILY PROGRESS NOTES AND DISCHARGE SUMMARY. This document is not part of the patient's record. Thank You, Luis Miguel Ruvalcaba, RN [phone]
--- NOTE | 2016-09-09 10:43 | CARDIOLOGY CONSULTATION ---
DATE OF CONSULTATION: 09/09/2016 PERTINENT HISTORY OF PRESENT ILLNESS: Mrs. Quezada is a 75-year-old white female well known to me from the outpatient setting. The patient was admitted yesterday with decompensated congestive heart failure and new onset atrial fibrillation. This consultation was ordered to assist in her management. The patient claims she was in her usual state of health until early July when she began to note significant progressive of weight gain. Concurrent with that, she noted lower extremity edema and an increase in her abdominal girth. She also developed progressive exertional dyspnea and a cough over the last several days. The patient was seen in my office on September 05. It appeared that she had had weight gain since due to significant physical and activity related to her chronic low back pain. Her examination at that time revealed a regular heart rhythm without evidence of decompensated congestive failure. In an event, her dyspnea and cough were productive and progressive. On the day of presentation, she had an intractable cough and opted to present to the emergency room for further care. She was found to be in rate controlled atrial fibrillation and decompensated congestive failure. The patient's cardiac history began in 1978 when she suffered a proximal inferior wall myocardial infarction. She was treated medically until progressive symptoms in 2009 led to a transmyocardial revascularization procedure with the use of a laser. The patient did well until September of 2015 when progressive anginal symptoms led to another cardiac catheterization. 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 She had a 95% ostial right coronary stenosis with moderate disease in the mid vessel. Left ventricular systolic function was normal at 60%. The patient underwent a single vessel procedure in [place], [place] on 10/12/2015. A saphenous vein graft was placed to the distal right coronary artery. Review of the operative report states that she is not a redo candidate. The patient recently moved to [place] to be closer to her 2 sons. She did well until symptoms as described above. Currently, the patient is resting comfortably in the bedside chair without complaints. She has diuresed significantly. She has lost 1.1 kilograms since presentation. PAST MEDICAL HISTORY: 1. Coronary artery disease status proximal IMI -- 1978. 2. CABG x1 -- SVG to the RCA -- September 2015 -- not a redo candidate. 3. 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 4. Normal LVEF -- 60% -- September 2015. 5. No AAA -- October 2012. 6. History of transmyocardial revascularization laser procedure -- 2009. 7. Cerebrovascular disease -- less than 50% bilateral carotid stenoses -- November 2015. 8. Hypertension. 9. Hypercholesterolemia. 10. Diet controlled diabetes mellitus. 11. Resection of pancreatic head mass -- benign -- 2009. 12. Gastric bypass surgery -- 2012. 13. Bilateral intraocular lens implants. 14. Right corneal transplant. 15. Right TKR -- 2003. 16. Left thumb joint replacement. 17. DJD. 18. Chronic low back pain. MEDICATIONS: 1. Heparin drip. 2. Lasix 40 mg IV daily. 3. Spironolactone 25 mg daily (new medication). 4. Potassium IV drip. 5. Bystolic 10 mg daily. 6. Hyzaar 50/12.5 daily. 7. Norvasc 2.5 mg daily. 8. Aspirin 325 mg per day. 9. Nitropatch 1 inch q. 6 hours. 10. Zocor 10 mg at bedtime. 11. Pepcid 20 mg b.i.d. 12. Neurontin 300 mg q.a.m. and 600 mg q.p.m. 13. Caltrate Plus 1 tablet daily. 14. Multivitamin daily. ALLERGIES: 1. CONTRAST. 2. BANANAS. SOCIAL HISTORY: The patient is retired and lives alone. Two sons live locally. Quit tobacco use 25 years ago. Has 1 glass of wine every evening. FAMILY HISTORY: Mother at age 92 from a CVA. Father at age 64 from an [place]. Two brothers had bypass surgery at age 60. REVIEW OF SYSTEMS: A 10-point review of systems is negative except for that described above. PHYSICAL EXAMINATION: GENERAL: This is a well-developed, well-nourished white female seated in the bedside chair without complaints. HEENT: Negative. NECK: Supple with full carotid upstrokes. There are no carotid bruits. Jugular venous pressure is flat at 90 degrees. There is no thyromegaly. CARDIOVASCULAR: Reveals a regular rhythm with occasional extrasystole. No obvious murmurs. No S3. LUNGS: Clear without rales, rhonchi, or wheezes. ABDOMEN: Soft and nontender without bruits. EXTREMITIES: Reveal intact radial artery pulses bilaterally. 1+ pedal and pretibial edema is noted. LABORATORY DATA: CBC notes hemoglobin of 9.5, hematocrit 28.0, white count 6.8, platelet count 309,000. Electrolytes note sodium of 145, potassium 3.3, chloride 106, bicarb 31, BUN 26, creatinine 1.2, glucose 124. Magnesium level is normal at 1.9. Troponin I level is less than 0.015 x3. CK is 41 with an MB fraction of 1.2. TSH is normal at 0.56. BNP is elevated at 3263. IMAGING DATA: Chest x-ray notes mild pulmonary edema with small bilateral pleural effusions. Post-sternotomy changes noted with some mild cardiomegaly. CT scan of the chest showed no evidence of pulmonary emboli. There is pulmonary vascular congestion along with bilateral pleural effusions. EKG notes atrial fibrillation with a controlled ventricular response. There is a complete right bundle branch block. Echocardiogram notes normal left ventricular systolic function with a possible proximal lateral wall motion abnormality. Ejection fraction is 50-55%. There is evidence of mild left ventricular hypertrophy and diastolic dysfunction. There is mild to moderate mitral regurgitation. There is mild tricuspid regurgitation with reduced right ventricular systolic performance an elevated central venous pressure. IMPRESSION: Mrs. Quezada was admitted with new onset atrial fibrillation and decompensated diastolic congestive heart failure. I suspect that she developed atrial fibrillation in early July when she noticed progressive weight gain and symptoms. I have had a long discussion regarding the pathophysiology in the management of atrial fibrillation with the patient. We would favor starting a newer oral anticoagulant agent and consider electrical versus chemical cardioversion in approximately 1 month. I agree with aggressive diuresis. We would consider increasing Lasix to twice daily dosing. Spironolactone is likely of little benefit realizing her normal systolic function. This could confuse potassium replacement. A little need for topical nitrates. PLAN: 1. Agree with use of intravenous heparin. 2. We would start Pradaxa (patient request as this has a reversal agent). 3. We would increase Lasix to b.i.d. dosing. 4. Spironolactone is likely of little benefit and may complicate potassium supplementation. 5. Consider discontinuation of topical nitrates. 6. We would decrease aspirin 81 mg daily. 7. Consider chemical versus electrical cardioversion after 4 weeks of oral anticoagulation. 8. Further recommendations depending on the clinical course.
[2016-09-09] MEDS: CYANOCOBALAMIN 500 MCG TAB (VIT B-12) PO SCH (11:24)
[2016-09-09] MEDS: ASCORBIC ACID 500 MG TAB PO SCH (11:24)
[2016-09-09] MEDS: CHOLECALCIFEROL 1000 INTER.UNIT TAB PO SCH (11:24)
[2016-09-09 11:26] VITALS: BP 126/62; PULSE 69; TEMP 36.4; O2SAT 94
[2016-09-09 11:52] LABS: TOTAL IRON BINDING CAPACITY 242 mcg/dl (250-450)
--- NOTE | 2016-09-09 14:48 | Family Medicine Progress Note ---
Progress Note Date of Service Sep 09, 2016. Subjective Pt evaluation today including: conversation w/ patient Reports having had exertional dyspnea for about a month. Feels slightly better today. Constitutional: No chills, No fever Eyes: No worsening of vision ENT: No hearing loss Respiratory: + cough, + dyspnea on exertion, + shortness of breath, No sputum Cardiovascular: + edema, No chest pain, No orthopnea Abdomen: No diarrhea, No nausea, No pain, No vomiting Female : No dysuria, No urinary frequency Objective Physical Exam General Appearance: no apparent distress Eyes: PERRL, EOMI Neck: supple, no JVD Respiratory/Chest: no respiratory distress, no accessory muscle use, + decreased breath sounds (at the bases) Cardiovascular: no murmur, + irregularly irregular Abdomen: normal bowel sounds, non tender, soft Extremities: non-tender, normal inspection, no calf tenderness, + pedal edema ( trace) Neurologic/Psychiatric: no motor/sensory deficits, alert, normal mood/affect Assessment and Plan 75 year old female with history of multiple NE's, CAD s/p CABG (september 2015), CVA, HTN, DLD, DM, CKD admitted for CHF exacerbation and new onset atrial fibrillation. Acute right ventricular systolic heart failure treated with IV lasix - Lasix BID - D/C spironolactone - D/C Nitropaste - I/O's, daily weights - Low sodium diet - water restriction - O2 via NC as per protocol - Monitor BMP/lytes with diuresis - Xray reviewed- evidence of bilateral mild pulmonary edema New onset atrial fibrillation; rate controlled - Repeat EKG with rate controlled Afib and RBBB - Echo- mild LVH, mild - mod MR, Elevated RV pressures at 40-50, systolic pressures mildly reduced. - Wonder about sleep apnea- will do overnight pulse ox - appreciate cardiology recommendations - On low dose heparin for anticoagulation Discussed with Case management; cost for 150 BID is 100$ /month, same for Xarelto and Eliquis. Had a long discussion with patient about options. Including Coumadin, Cost vs. risks/benefits Patient ultimately decided on Pradaxa due to not wanting to check INR, not wanting to do Lovenox injections for bridging- will stop heparin and start this. - Plan for cardioversion in 4 weeks. Anemia, H/O of iron deficiency, h/o Gastric Bypass - Anemia work up B12 high and folate normal Can reduce b12 supplementation Iron studies, with combination of chronic disease and iron deficiency Start iron supplementation 325 BID of ferrous sulfate - Monitor H/H - Hemoccult pending - Started on PO famotidine 20mg BID (on esomeprazole at home, which may need to be discontinued if low Mg+) Hypokalemia: - replaced with 20 meq of Kcl - trend BMP with diuresis CAD - NE in 1978, 1993, 1995, s/p CABG 2016 for blocked coronary vessel - Last stress echo 2014 - Change to baby aspirin, simvastatin 10mg HS- most recent Lipid profile with LDL of 51- can't increase dosing CKD stage III- stable - trend BMP - avoid nephrotoxic medications DM - 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 Stable. Endocrinology had stopped following her. - TSH normal DVT prophylaxis - IV low dose heparin- switch to pradaxa Code status: Full code Dispo: Telemetry Reviewed: Pt Seen/Exam by Me History Resident Physician Supervision Note: I interviewed and examined the patient. Discussed with Dr. Trujillo and agree with findings and plan as documented in the note. Any exceptions or clarifications are listed here: Patient feeling much better since admission, less short of breath, cough is going away. She denies palpitations or chest pain or pressure. She has no history of GI bleeding. Her chronic anemia secondary to poor absorption from her gastric bypass and this has been a problem for years. She also reports that she was morbidly obese for many years until she had gastric bypass surgery about 13 years ago. She reports family members often told her that she snored heavily when she was more obese. 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 -Starting Pradaxa and stop heparin drip as per patient preference for stroke prevention -Check overnight oximetry to see if his obstructive sleep apnea as cause for her suspected pulmonary hypertension -Continue diuresis and electrolyte replacement as needed -Starting iron replacement therapy Documented By: Norma Linton
[2016-09-09 15:12] VITALS: BP 127/72; PULSE 80; TEMP 36.6; O2SAT 93
[2016-09-09] MEDS: FERROUS SULFATE 325 MG TAB PO SCH (16:31)
[2016-09-09] MEDS: FUROSEMIDE INJ 40 MG in SYRINGE 0 ML IV SCH (16:32)
[2016-09-09] MEDS: DABIGATRAN ELEXILATE 75 MG CAP PO SCH (17:30)
[2016-09-09 20:05] VITALS: BP 101/60; PULSE 68; TEMP 36.5; O2SAT 95
[2016-09-09] MEDS: GABAPENTIN 600 MG TAB PO SCH (20:40)
[2016-09-09] MEDS: SIMVASTATIN 10 MG TAB PO SCH (20:40)
[2016-09-09 23:55] VITALS: BP 127/69; PULSE 69; TEMP 36.5; O2SAT 97
[2016-09-10 03:09] VITALS: BP 138/79; PULSE 75; TEMP 36.7; O2SAT 95
[2016-09-10 05:28] LABS: BASO % 0.5 %; BASO ABS # 0.03 K/uL (0-0.2); COMPLETE YES; EOS % 4.2 %; HEMATOCRIT 29.4 % (37-47); IG% 0.3 %; LYMPH % 25.7 %; LYMPH ABS # 1.64 K/uL (1.2-3.4); MEAN CELL VOLUME 96.4 fL (80-100); MEAN CORPUSCULAR HEMOGLOBIN 32.8 pg (25-34); MEAN PLATELET VOLUME 8.7 fL (7.4-10.4); NEUT % 53.3 %; PLATELET COUNT 341 K/uL (130-400); RED BLOOD COUNT 3.05 M/uL (4.2-5.4); WHITE BLOOD COUNT 6.38 K/uL (4.8-10.8)
[2016-09-10 05:44] LABS: PARTIAL THROMBOPLASTIN RATIO 1.2
[2016-09-10 05:52] LABS: BUN/CREATININE RATIO 19.4 (10-20); CALCIUM 8.8 mg/dl (8.5-10.1); CREATININE 1.3 mg/dl (0.60-1.20); MAGNESIUM 1.9 mg/dl (1.8-2.4); PHOSPHORUS 4.2 mg/dl (2.5-4.9); POTASSIUM 3.4 mmol/L (3.5-5.1)
[2016-09-10] MEDS ORDERED: POTASSIUM CHLORIDE 10 MEQ TABCR PO STA (06:28)
[2016-09-10 08:03] VITALS: BP 137/71; PULSE 74; TEMP 36.6; O2SAT 95
[2016-09-10] MEDS: PrednisoLONE ACET 1% OP SUSP 5 ML BTL OPR SCH (08:20)
[2016-09-10] MEDS: FUROSEMIDE INJ 40 MG in SYRINGE 0 ML IV SCH ×2 (08:21→16:37)
[2016-09-10] MEDS: FERROUS SULFATE 325 MG TAB PO SCH ×2 (08:21→16:37)
[2016-09-10] MEDS: NEBIVOLOL HCL 5 MG TAB PO SCH (08:22)
[2016-09-10] MEDS: ASPIRIN 81 MG ECTAB PO SCH (08:22)
[2016-09-10] MEDS: CALCIUM 600MG + VIT D 400 IU TAB PO SCH (08:22)
[2016-09-10] MEDS: GABAPENTIN 300 MG CAP PO SCH (08:23)
[2016-09-10] MEDS: MULTIVITAMIN TAB PO SCH ×3 (08:23→21:00)
[2016-09-10] MEDS: CEROVITE ADV FORMULA TAB PO SCH ×2 (08:23→21:23)
[2016-09-10] MEDS: LOSARTAN/HCTZ 50-12.5 EA TAB PO SCH (08:23)
[2016-09-10] MEDS: DABIGATRAN ELEXILATE 75 MG CAP PO SCH ×2 (08:25→21:25)
[2016-09-10] MEDS: AMLODIPINE BESYLATE 5 MG TAB PO SCH (08:25)
[2016-09-10] MEDS: FAMOTIDINE 20 MG TAB PO SCH ×2 (08:25→21:23)
[2016-09-10] MEDS: CHOLECALCIFEROL 1000 INTER.UNIT TAB PO SCH (11:12)
[2016-09-10] MEDS: CYANOCOBALAMIN 500 MCG TAB (VIT B-12) PO SCH (11:12)
[2016-09-10] MEDS: ASCORBIC ACID 500 MG TAB PO SCH (11:13)
[2016-09-10 11:32] VITALS: BP 148/85; PULSE 72; TEMP 36.5; O2SAT 100
[2016-09-10] MEDS ORDERED: LOSA100T65 PO (14:59)
[2016-09-10] MEDS ORDERED: FRS/40 PO (14:59)
[2016-09-10] MEDS ORDERED: DABI150C PO (14:59)
[2016-09-10] MEDS ORDERED: POTA8CAP6 PO (14:59)
[2016-09-10] MEDS ORDERED: ASPEC81 PO (14:59)
[2016-09-10] MEDS ORDERED: FRRS300 PO (14:59)
[2016-09-10 15:15] VITALS: BP 136/86; PULSE 63; TEMP 36.7; O2SAT 94
--- NOTE | 2016-09-10 17:05 | Hospitalist Progress Note ---
Hospitalist Progress Note Date of Service Sep 10, 2016. Subjective Pt evaluation today including: conversation w/ patient, conversation w/ family , physical exam, lab review, conversation w/ cancer program consultant (cardiology), review of inpatient medication list Patient doing well, she denies any further shortness of breath. However, she had an 8 beat run and a 33 beat run of suspected ventricular tachycardia today on the telemetry. She was completely asymptomatic each time. Overnight oximetry test revealed a continuous desaturation less than 89% for over 8 minutes. Respiratory: No dyspnea on exertion, No shortness of breath Cardiovascular: No chest pain All Other Systems: Reviewed and Negative Objective Vital Signs Date Time Temp Pulse Resp B/P Pulse Ox O2 Delivery O2 Flow Rate FiO2 09/10/16 16:00 Room Air 09/10/16 15:15 36.7 63 18 136/86 94 Room Air 09/10/16 12:00 Room Air 09/10/16 11:32 36.5 72 19 148/85 100 Room Air 09/10/16 08:03 36.6 74 18 137/71 95 Room Air 09/10/16 08:00 Room Air 09/10/16 04:00 Room Air 09/10/16 03:09 36.7 75 18 138/79 95 Room Air 09/10/16 00:00 Room Air 09/09/16 23:55 36.5 69 18 127/69 97 Room Air 09/09/16 20:05 36.5 68 20 101/60 95 Nasal Cannula 3.0 09/09/16 20:00 Room Air Physical Exam General Appearance: WD/WN, no apparent distress Eyes: normal inspection, sclerae normal ENT: hearing grossly normal Neck: trachea midline Respiratory/Chest: lungs clear, normal breath sounds, no respiratory distress, no accessory muscle use Cardiovascular: no gallop, no murmur, + irregularly irregular, + pertinent finding (trace pitting edema to the knees bilaterally) Abdomen: normal bowel sounds, non tender, soft Extremities: no calf tenderness Neurologic/Psychiatric: alert, normal mood/affect, oriented x 3 Skin: normal color, warm/dry, no rash Laboratory Results Last 24 Hours Test 09/10/16 05:15 09/10/16 16:25 White Blood Count 6.38 K/uL Red Blood Count 3.05 M/uL Hemoglobin 10.0 g/dL Hematocrit 29.4 % Mean Corpuscular Volume 96.4 fL Mean Corpuscular Hemoglobin 32.8 pg Mean Corpuscular Hemoglobin Concent 34.0 g/dl Platelet Count 341 K/uL Mean Platelet Volume 8.7 fL Neutrophils (%) (Auto) 53.3 % Lymphocytes (%) (Auto) 25.7 % Monocytes (%) (Auto) 16.0 % Eosinophils (%) (Auto) 4.2 % Basophils (%) (Auto) 0.5 % Neutrophils # (Auto) 3.40 K/uL Lymphocytes # (Auto) 1.64 K/uL Monocytes # (Auto) 1.02 K/uL Eosinophils # (Auto) 0.27 K/uL Basophils # (Auto) 0.03 K/uL RDW Standard Deviation 48.0 fL RDW Coefficient of Variation 13.9 % Immature Granulocyte % (Auto) 0.3 % Immature Granulocyte # (Auto) 0.02 K/uL Erythrocyte Sedimentation Rate 58 mm/hr Activated Partial Thromboplast Time 30.1 SECONDS Partial Thromboplastin Ratio 1.2 Sodium Level 142 mmol/L Potassium Level 3.4 mmol/L Chloride Level 103 mmol/L Carbon Dioxide Level 31 mmol/L Anion Gap 8.0 mmol/L Blood Urea Nitrogen 25 mg/dl Creatinine 1.30 mg/dl Est Creatinine Clear Calc Drug Dose 35.7 ml/min Estimated GFR () 46.2 Estimated GFR (Non- 39.8 BUN/Creatinine Ratio 19.4 Random Glucose 97 mg/dl Calcium Level 8.8 mg/dl Phosphorus Level 4.2 mg/dl Magnesium Level 1.9 mg/dl C-Reactive Protein 0.90 mg/dl Assessment and Plan 75 year old female with history of multiple MO's, CAD s/p CABG (september 2015), CVA, HTN, DLD, DM, CKD admitted for CHF exacerbation and new onset atrial fibrillation. 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 Acute on chronic right ventricular systolic heart failure treated with IV lasix , suspected pulmonary hypertension, obstructive sleep apnea, hypertension- Echocardiogram shows mild LVH, mildly reduced RV function, [id number] MR, and elevated right ventricular systolic pressure of 40-50 mmHg, with normal LV function.Overnight oximetry showed longest continuous duration of pulse ox less than 89% of 8 minutes 4 seconds. She had an pulse ox wyatt of 73%. Has had 20 pound weight gain in the last 1 month, likely with paroxysmal A. fib over the last month causing her to have acute CHF. Has had a modest diuresis since admission and is clinically improved. Rates are controlled with A. fib but is having periods of nonsustained ventricular tachycardia on telemetry. Discussed with the dealer card room over the phone today. -Continue diuresis with Lasix 40 mg IV twice a day and switch to Lasix 40 mg by mouth once daily upon discharge -We will repeat BMP and magnesium now-electrolyte replacement as needed to keep potassium greater than 4 and magnesium greater than 2 -Bond Manager to review telemetry and see the patient in the morning -Continue strict I/O's, daily weights - Low sodium diet -Fluid restriction 1800 mL's daily -Case management has arranged for nocturnal O2 for at home use -Continue Bystolic, losartan (will discontinue the HCTZ), and amlodipine for blood pressure control -If nonsustained VT persists, may consider antiarrhythmic New onset atrial fibrillation, nonsustained ventricular tachycardia-longest run of VT was 33 beats and was asymptomatic, could be related to electrolyte abnormalities, has normal LV function -EKG with rate controlled Afib and RBBB - appreciate cardiology recommendations - On low dose heparin for anticoagulation and initially and then switched to Pradaxa 150 mg by mouth twice a day - Plan for cardioversion in 4 weeks, follow-up with cardiology then Anemia, H/O of iron deficiency, h/o Gastric Bypass so most likely secondary to poor GI absorption - Anemia work up B12 high and folate normal Iron studies, with combination of anemia of chronic disease and iron deficiency Start iron supplementation 325 BID of ferrous sulfate - Monitor H/H as an outpatient - Hemoccult pending - Started on PO famotidine 20mg BID (on esomeprazole at home, which may need to be discontinued if low Mg+) CAD - [place] in 1978, 1993, 1995, s/p transmural revascularization procedure with laser in 2009 and CABG 2016. Stable, no issues currently - Change to baby aspirin given that we're starting anticoagulation -Continue simvastatin 10mg HS- CKD stage III- stable - trend BMP - avoid nephrotoxic medications and will renally dose all medications Diabetes mellitus type 2 -is status post partial pancreatectomy performed in 2009- benign mass - Diet controlled, last hemoglobin A1c in February 2016 was 5.7% Back pain-no current issues - Continue gabapentin 300mg qAM, 600mg qPM and hydrocodone PRN Seasonal asthma- stable - Albuterol neb PRN Substernal Thyroid- pre-existing - Seen on CT chest - has been evaluated in the past multiple times. Stable. Endocrinology had stopped following her. - TSH here normal DVT prophylaxis Pradaxa Code status: Full code Dispo: Continue Telemetry due to nonsustained ventricular tachycardia
[2016-09-10 17:15] LABS: BUN/CREATININE RATIO 17.7 (10-20); CALCIUM 9.3 mg/dl (8.5-10.1); CREATININE 1.5 mg/dl (0.60-1.20); MAGNESIUM 2.1 mg/dl (1.8-2.4); POTASSIUM 3.9 mmol/L (3.5-5.1)
[2016-09-10 19:40] VITALS: BP 121/59; PULSE 71; TEMP 36.8; O2SAT 98
[2016-09-10] MEDS: GABAPENTIN 600 MG TAB PO SCH (21:23)
[2016-09-10] MEDS: SIMVASTATIN 10 MG TAB PO SCH (21:24)
[2016-09-10 23:40] VITALS: BP 118/68; PULSE 76; TEMP 36.6; O2SAT 95
[2016-09-11 03:44] VITALS: BP 124/73; PULSE 74; TEMP 36.6; O2SAT 96
[2016-09-11 05:44] LABS: BASO % 0.2 %; BASO ABS # 0.01 K/uL (0-0.2); COMPLETE YES; EOS % 3.7 %; HEMATOCRIT 30.4 % (37-47); IG% 0.5 %; LYMPH % 28.6 %; LYMPH ABS # 1.71 K/uL (1.2-3.4); MEAN CELL VOLUME 95.9 fL (80-100); MEAN CORPUSCULAR HEMOGLOBIN 31.5 pg (25-34); MEAN CORPUSCULAR HGB CONC 32.9 g/dl (32-36); MEAN PLATELET VOLUME 8.9 fL (7.4-10.4); MONO % 15.7 %; NEUT % 51.3 %; PLATELET COUNT 356 K/uL (130-400); RED BLOOD COUNT 3.17 M/uL (4.2-5.4); WHITE BLOOD COUNT 5.98 K/uL (4.8-10.8)
[2016-09-11 06:03] LABS: BUN/CREATININE RATIO 19.5 (10-20); CREATININE 1.3 mg/dl (0.60-1.20); MAGNESIUM 2.1 mg/dl (1.8-2.4); PHOSPHORUS 4.2 mg/dl (2.5-4.9); POTASSIUM 3.7 mmol/L (3.5-5.1)
[2016-09-11] MEDS ORDERED: POTASSIUM CHLORIDE 10 MEQ TABCR PO STA (07:25)
[2016-09-11 07:51] VITALS: BP 115/64; PULSE 72; TEMP 36.9; O2SAT 98
[2016-09-11] MEDS: PrednisoLONE ACET 1% OP SUSP 5 ML BTL OPR SCH (08:18)
[2016-09-11] MEDS: FERROUS SULFATE 325 MG TAB PO SCH (08:19)
[2016-09-11] MEDS: CALCIUM 600MG + VIT D 400 IU TAB PO SCH (08:20)
[2016-09-11] MEDS: NEBIVOLOL HCL 5 MG TAB PO SCH (08:20)
[2016-09-11] MEDS: ASPIRIN 81 MG ECTAB PO SCH (08:21)
[2016-09-11] MEDS: MULTIVITAMIN TAB PO SCH (08:22)
[2016-09-11] MEDS: GABAPENTIN 300 MG CAP PO SCH (08:22)
[2016-09-11] MEDS: CEROVITE ADV FORMULA TAB PO SCH (08:22)
[2016-09-11] MEDS: FAMOTIDINE 20 MG TAB PO SCH (08:23)
[2016-09-11] MEDS: DABIGATRAN ELEXILATE 75 MG CAP PO SCH (08:23)
[2016-09-11] MEDS: AMLODIPINE BESYLATE 5 MG TAB PO SCH (08:23)
[2016-09-11] MEDS: ASCORBIC ACID 500 MG TAB PO SCH (08:24)
[2016-09-11] MEDS: CYANOCOBALAMIN 500 MCG TAB (VIT B-12) PO SCH (08:24)
[2016-09-11] MEDS: FUROSEMIDE INJ 40 MG in SYRINGE 0 ML IV SCH (08:35)
[2016-09-11] MEDS ORDERED: LOSARTAN POTASSIUM 50 MG TAB PO SCH (09:00)
--- NOTE | 2016-09-11 10:16 | Cardiology Follow-Up ---
Subjective Date of Service: Sep 11, 2016. Pt evaluation today including: conversation w/ patient, conversation w/ family , physical exam, lab review, review of studies, review of inpatient medication list, conversation w/ attending History of Present Illness Patient had several runs of nonsustained ventricular tachycardia which held up her discharge yesterday. She was asymptomatic, no palpitations or lightheadedness. Today she feels well, she has no complaints. She is anxious to go home. Social History Smoking Status: Former Smoker History of Alcohol Use: Yes (2 drinks of [place] per night) Review of Systems Respiratory: No dyspnea on exertion, No shortness of breath Cardiac: No chest pain Objective Vital Signs Past 12 Hours Date Time Temp Pulse Resp B/P Pulse Ox O2 Delivery O2 Flow Rate FiO2 09/11/16 08:00 Room Air 09/11/16 07:51 36.9 72 20 115/64 98 Room Air 09/11/16 04:00 Room Air 09/11/16 03:44 36.6 74 18 124/73 96 Room Air 2.0 09/11/16 00:00 Room Air 09/10/16 23:40 36.6 76 18 118/68 95 Nasal Cannula 2.0 Last Recorded Weight-Kilograms: 75.400 Intake & Output 8-Hour Column 09/10/16 09/11/16 09/11/16 16:00 00:00 08:00 Intake Total 650 ml 680 ml 200 ml Output Total 400 ml Balance 250 ml 680 ml 200 ml 24-Hour Column 09/11/16 08:00 Intake Total 1530 ml Output Total 400 ml Balance 1130 ml Physical Exam Constitutional: Level of Distress: NAD Lungs: Auscultation: breath sounds normal Cardiovascular: Heart Auscultation: irregular rate rhythm Extremities: no edema Data Laboratory Results: Last 24 Hours Test 09/10/16 16:47 09/11/16 05:20 Sodium Level 142 mmol/L 144 mmol/L Potassium Level 3.9 mmol/L 3.7 mmol/L Chloride Level 104 mmol/L 104 mmol/L Carbon Dioxide Level 32 mmol/L 33 mmol/L Anion Gap 6.0 mmol/L 7.0 mmol/L Blood Urea Nitrogen 27 mg/dl 25 mg/dl Creatinine 1.50 mg/dl 1.30 mg/dl Est Creatinine Clear Calc Drug Dose 31.0 ml/min 35.8 ml/min Estimated GFR () 38.8 46.2 Estimated GFR (Non- 33.5 39.8 BUN/Creatinine Ratio 17.7 19.5 Random Glucose 95 mg/dl 95 mg/dl Calcium Level 9.3 mg/dl 9.0 mg/dl Magnesium Level 2.1 mg/dl 2.1 mg/dl White Blood Count 5.98 K/uL Red Blood Count 3.17 M/uL Hemoglobin 10.0 g/dL Hematocrit 30.4 % Mean Corpuscular Volume 95.9 fL Mean Corpuscular Hemoglobin 31.5 pg Mean Corpuscular Hemoglobin Concent 32.9 g/dl Platelet Count 356 K/uL Mean Platelet Volume 8.9 fL Neutrophils (%) (Auto) 51.3 % Lymphocytes (%) (Auto) 28.6 % Monocytes (%) (Auto) 15.7 % Eosinophils (%) (Auto) 3.7 % Basophils (%) (Auto) 0.2 % Neutrophils # (Auto) 3.07 K/uL Lymphocytes # (Auto) 1.71 K/uL Monocytes # (Auto) 0.94 K/uL Eosinophils # (Auto) 0.22 K/uL Basophils # (Auto) 0.01 K/uL RDW Standard Deviation 47.7 fL RDW Coefficient of Variation 13.8 % Immature Granulocyte % (Auto) 0.5 % Immature Granulocyte # (Auto) 0.03 K/uL Phosphorus Level 4.2 mg/dl EKG: Atrial fibrillation, right bundle branch block Telemetry reviewed: Atrial fibrillation, 2 runs of nonsustained ventricular tachycardia yesterday. 18 beats in duration, slightly irregular, rate about 160 bpm. The second episode 33 bpm, probably the same morphology, rate around 150. None since. Assessment and Plan #1. Nonsustained ventricular tachycardia: She technically has nonsustained ventricular tachycardia (asymptomatic, less than 30 seconds). Her left ventricular function is normal. As such the proper treatment is probably beta- blockade. As far as the cause of it is not clear, it is probably related to electrolyte shifts although when measured her magnesium and potassium were only slightly low. I would not specifically treat this other than continuing the beta -blockade. #2. Atrial fibrillation: She should continue with rate control (which is adequate currently) and anticoagulation. I would recommend having her come into the office in several weeks to discuss possible cardioversion and follow-up on her nonsustained ventricular tachycardia. Thank you for allowing me to participate in her care.
--- NOTE | 2016-09-11 11:03 | Discharge Instructions ---
Discharge Instructions Date of Service Sep 11, 2016. Admission Reason for Admission: Chf (Congestive Heart Failure) Discharge Discharge Diagnosis / Problem: Acute CHF, Aitral fibrillation Discharge Goals Goal(s): Improve disease control, Diagnostic testing, Therapeutic intervention Activity Recommendations Activity Limitations: as noted below Exercise/Sports Limitations: gradually increase as tolerated Shower/Bathe: no limitations . Instructions / Follow-Up Instructions / Follow-Up You were admitted for congestive heart failure. You were found to have low oxygen levels at night and probable obstructive sleep apnea. You will require oxygen at nighttime at least until you get a formal sleep study as an outpatient. After that, you may be prescribed a CPAP machine to wear by face mask at nighttime. You were given diuretics to get fluid weight off of you from the CHF. You were also started on a blood thinner to prevent stroke due to the increased risk of stroke from your atrial fibrillation. You did have two episodes of an abnormal heart rhythm called Ventricular Tachycardia. Your electrolytes were repleted and this improved. If you have palpitations and feel lightheaded or pass out, you should call [address] Robins can follow up on this with you at your appointment. You should see him in 2 weeks and then make plans for a cardioversion to shock your heart back into a normal rhythm in about 4 weeks. You should also follow up with your PCP within 1 week. Call your Primary Care doctor if any of the following symptoms or problems start or get worse: * Shortness of breath or difficulty breathing * Wake up at night short of breath * Chest pain * Cough * Swelling of your hands, feet, or legs * More fatigued or tired with your normal activity * Palpitations - sudden fast heart beats WEIGHT * Weigh yourself every morning after using the bathroom. * Use the same scale. * Wear the same amount of clothing. * Write your weight down on a chart. * Call your Primary Care doctor if you gain more than 2-3 pounds in 1-2 days. MEDICATIONS * Use this discharge instruction sheet for medication instructions. * Take your medications at the time your doctor ordered. * Do not skip a dose of your medicines. * If you miss a dose of medicine, take it as soon as possible, but DO NOT DOUBLE A DOSE. * Read your medicine information when you get home. * Know all of the side effects of your medicine. If in doubt, ask your pharmacist * Call your Primary Care doctor's office if you have any side effects. * Be sure all of your doctors know what medicine and herbs you take (including cold, flu, and herbal medicine). Take the following with you to your follow-up doctor appointments: * Weight Chart * Medication List * List of questions Do not drink excessive alcohol, beer or wine. Current Hospital Diet Patient's current hospital diet: Low Sodium Diet (2gm Na) Discharge Diet Recommended Diet: Diabetes Type 2 Diet Fluid Restriction: 1800 ml (7 cups) Procedures Procedures Performed: Echocardiogram Overnight oximetry test CT Angiogram Chest Chest xray Pending Studies Studies pending at discharge: no Laboratory Results Last 24 Hours Test 09/10/16 16:47 09/11/16 05:20 Sodium Level 142 mmol/L 144 mmol/L Potassium Level 3.9 mmol/L 3.7 mmol/L Chloride Level 104 mmol/L 104 mmol/L Carbon Dioxide Level 32 mmol/L 33 mmol/L Anion Gap 6.0 mmol/L 7.0 mmol/L Blood Urea Nitrogen 27 mg/dl 25 mg/dl Creatinine 1.50 mg/dl 1.30 mg/dl Est Creatinine Clear Calc Drug Dose 31.0 ml/min 35.8 ml/min Estimated GFR () 38.8 46.2 Estimated GFR (Non- 33.5 39.8 BUN/Creatinine Ratio 17.7 19.5 Random Glucose 95 mg/dl 95 mg/dl Calcium Level 9.3 mg/dl 9.0 mg/dl Magnesium Level 2.1 mg/dl 2.1 mg/dl White Blood Count 5.98 K/uL Red Blood Count 3.17 M/uL Hemoglobin 10.0 g/dL Hematocrit 30.4 % Mean Corpuscular Volume 95.9 fL Mean Corpuscular Hemoglobin 31.5 pg Mean Corpuscular Hemoglobin Concent 32.9 g/dl Platelet Count 356 K/uL Mean Platelet Volume 8.9 fL Neutrophils (%) (Auto) 51.3 % Lymphocytes (%) (Auto) 28.6 % Monocytes (%) (Auto) 15.7 % Eosinophils (%) (Auto) 3.7 % Basophils (%) (Auto) 0.2 % Neutrophils # (Auto) 3.07 K/uL Lymphocytes # (Auto) 1.71 K/uL Monocytes # (Auto) 0.94 K/uL Eosinophils # (Auto) 0.22 K/uL Basophils # (Auto) 0.01 K/uL RDW Standard Deviation 47.7 fL RDW Coefficient of Variation 13.8 % Immature Granulocyte % (Auto) 0.5 % Immature Granulocyte # (Auto) 0.03 K/uL Phosphorus Level 4.2 mg/dl Medical Emergencies . Who to Call and When: Call 911 or go to the Emergency Room if: * If at any time you feel your situation is an emergency * You have tightness or pain in your chest that does not go away with rest or Nitroglycerin * You are very short of breath even with rest . Non-Emergent Contact Non-Emergency issues call your: Primary Care Provider, [place] Call Non-Emergent contact if: you have any medication questions . . "Provider Documentation" section prepared by Norma Linton. VTE Core Measure Inpt VTE Proph given/why not?: Other Anticoagulation (Pradaxa)
[2016-09-11 11:07] VITALS: BP 115/64; PULSE 72; TEMP 36.9; O2SAT 98
[2016-09-11 11:21] VITALS: BP 115/64; PULSE 72; TEMP 36.9; O2SAT 98
--- NOTE | 2016-09-11 16:25 | Discharge Summary ---
Discharge Summary Date of Service Sep 11, 2016. 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 * Left ventricular systolic function is normal with EF 50-55% * The right ventricular systolic function is mildly reduced. * There is moderate mitral annular calcification. * There is mild to moderate mitral regurgitation. * Right ventricular systolic pressure is elevated at 40-50mmHg. CHEST ONE VIEW PORTABLE HISTORY: Atypical CHEST PAIN COMPARISON: None. FINDINGS: Poststernotomy changes. Cholecystectomy. The heart is mildly enlarged. Small bilateral pleural effusions. Diffuse interstitial vascular thickening consistent with mild pulmonary edema. IMPRESSION: Mild pulmonary edema with small bilateral pleural effusions. CHEST CTA for PULMONARY ARTERIES CT DOSE: 372.44 mGy.cm HISTORY: Chest pain dyspnea TECHNIQUE: Multiaxial CT images of the chest were performed following the intravenous administration of contrast to evaluate the pulmonary arteries. Maximal intensity projection images were also obtained. COMPARISON STUDY: None. 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 Moderate atherosclerotic change thoracic aorta. Pulmonary vasculature enhances appropriately. There are no filling defects. Underlying pulmonary vascular congestion. Scattered atelectatic change. Small bilateral pleural effusions. Fixed lateral hernia. IMPRESSION: 1. Study is negative for pulmonary embolus. 2. Pulmonary vascular congestion versus early congestive failure. 3. Large substernal thyroid. 4. Small bilateral pleural effusions. 5. Scattered atelectatic change. Overnight oximetry: showed longest continuous duration of pulse ox less than 89 % of 8 minutes 4 seconds. She had an pulse ox wyatt of 73%. Consultations: Cardiology Medication Reconciliation New Medications: Dabigatran Etexilate Mesylate (Pradaxa) 150 Mg Cap 1 CAP PO BID for 30 Days, #60 CAP 0 Refills Furosemide (Lasix) 40 Mg Tab 40 MG PO QAM for 30 Days, #30 TAB Losartan Potassium (Cozaar) 100 Mg Tab 1 TAB PO DAILY for 30 Days, #30 TAB 0 Refills Potassium Chloride (Klor-Con Ext Rel) 8 Meq Cap 8 MEQ PO BID for 30 Days, #60 CAP Aspirin (Aspirin EC Low Dose) 81 Mg Ectab 81 MG PO QAM for 30 Days Ferrous Sulfate (Ferrous Sulfate) 325 Mg Tab 325 MG PO BIDM for 30 Days, #60 TAB Continued Medications: Amlodipine Besylate (Norvasc) 2.5 Mg Tab 2.5 MG PO DAILY, TAB Ascorbic Acid (Vitamin C) 500 Mg Tab 1000 MG PO NOON Biotin (Biotin) 5,000 Mcg Sub 5000 MCG PO QAM Calcium Citrate-Vitamin D (Citracal Maximum) 1 Tab Tab 600 MG PO QAM Cyanocobalamin (Vitamin B-12) 1,000 Mcg Tab 2500 MCG PO LUNCH, TAB Ergocalciferol (Vitamin D2) 2,000 Unit Tab 1 TAB PO LUNCH Esomeprazole Magnesium (Esomeprazole Magnesium) 40 Mg Cap 1 CAP PO UD PT TAKES BEFOE BREAKFAST Gabapentin (Neurontin) 300 Mg Cap 300 MG PO QAM, CAP Gabapentin (Neurontin) 300 Mg Cap 600 MG PO HS, CAP Multiple Vitamins W/ Minerals (Preservision Areds 2) 1 Cap Cap 1 CAP PO BID Multiple Vitamins W/ Minerals (Centrum Silver) 1 Chw Chw 1 TAB PO LUNCH Multivitamin (Multivitamin) Tab 1 TAB PO TID CALCIUM CITRATE 1000MG/MAGNESIUM 400MG/VITAMIN D3 600IU PT TAKES AFTER LUNCH, AFTER DINNER, AND AT BEDTIME Nebivolol Hcl (Bystolic) 10 Mg Tab 10 MG PO QAM, TAB Prednisolone Acetate (Ophth) (Pred Forte 1% Oph) 1 % Cheryl 1 DROPS OPR UD PT TAKES BEFORE BREAKFAST Simvastatin (Zocor) 10 Mg Tab 10 MG PO QPM, TAB [Zinc] () 25 MG PO HS PATIENT TAKES SAT AND SUN ONLY Discontinued Medications: Aspirin (Aspirin Ec) 325 Mg Tab 325 MG PO DINNER Hctz/Losartan (Hyzaar 25MG/100MG) Tab 1 TAB PO QAM, TAB Referrals At Discharge Follow up Referrals: Supervisor Front Referral - Within 2 Weeks with Jordy Robins M.D. Physician Referral - Within 1-2 Weeks with Shanika Turcios C.R.N.P. Discharge Exam Feeling well, no chest pain, dyspnea on exertion, shortness of breath, no orthopnea. No further ventricular tachycardia on telemetry in the last approximately 24 hours. Review of Systems: Constitutional: No chills, No fever Eyes: No worsening of vision ENT: No problem reported Respiratory: No dyspnea on exertion, No shortness of breath Cardiovascular: No chest pain, No palpitations Abdomen: No nausea, No pain, No vomiting Musculoskeletal: No problem reported Genitourinary - Female: No problem reported Neurologic: No problem reported Psychiatric: No problem reported Endocrine: No problem reported Hematologic / Lymphatic: No problem reported Integumentary: No problem reported Physical Exam: General Appearance: WD/WN, no apparent distress Eyes: normal inspection, EOMI, sclerae normal ENT: hearing grossly normal Neck: no JVD, trachea midline Respiratory/Chest: lungs clear, normal breath sounds, no respiratory distress, no accessory muscle use Cardiovascular: no gallop, no murmur, normal peripheral pulses, + irregularly irregular, + pertinent finding (trace pitting edema to the knees bilaterally) Abdomen / GI: normal bowel sounds, non tender, soft Extremities: no calf tenderness Neurologic/Psychiatric: alert, normal mood/affect, oriented x 3 Skin: normal color, warm/dry, no rash Hospital Course This patient is a 75-year-old female with history of CAD with multiple MIs and status post transmural revascularization procedure with laser and CABG, CVA, hypertension, hyperlipidemia, anemia, morbid obesity now status post gastric bypass surgery, chronic kidney disease stage III, diabetes mellitus type 2, here with acute on chronic combined systolic and diastolic right-sided heart failure as well as new onset atrial fibrillation. Acute on chronic right ventricular systolic heart failure treated with IV lasix , suspected pulmonary hypertension, obstructive sleep apnea, hypertension- Echocardiogram shows mild LVH, mildly reduced RV function, [id number] MR, and elevated right ventricular systolic pressure of 40-50 mmHg, with normal LV function.Overnight oximetry showed longest continuous duration of pulse ox less than 89% of 8 minutes 4 seconds. She had an pulse ox wyatt of 73%. Has had 20 pound weight gain in the last 1 month, likely with paroxysmal A. fib over the last month causing her to have acute CHF. Has had a modest diuresis of over 3 L net negative since admission and is clinically improved. Rates are controlled with A. fib but was having periods of nonsustained ventricular tachycardia on telemetry that were under 30 seconds and asymptomatic with the longest run being 33 beats. The tray delivery aide saw her and reviewed telemetry. He recommended continued beta-blockade and repletion of electrolytes. -She received diuresis with Lasix 40 mg IV twice a day and then was switched to Lasix 40 mg by mouth once daily upon discharge -electrolyte replacement as needed to keep potassium greater than 4 and magnesium greater than 2 -Appreciate cardiology recommendations -Instructed on fluid restriction and daily weights at home - Low sodium diet -Fluid restriction 1800 mL's daily -Case management has arranged for nocturnal O2 for at home use for her obstructive sleep apnea-will need formal sleep study as an outpatient -Continue Bystolic, losartan (will discontinue the HCTZ), and amlodipine for blood pressure control New onset atrial fibrillation, nonsustained ventricular tachycardia-longest run of VT was 33 beats and was asymptomatic, could be related to electrolyte abnormalities, has normal LV function -EKG with rate controlled Afib and RBBB -Continue beta-blockade with Bystolic - On low dose heparin for anticoagulation and initially and then switched to Pradaxa 150 mg by mouth twice a day - Plan for cardioversion in 4 weeks, follow-up with cardiology in 2 weeks Anemia, H/O of iron deficiency, h/o Gastric Bypass so most likely secondary to poor GI absorption - Anemia work up B12 high and folate normal Iron studies, with combination of anemia of chronic disease and iron deficiency Start iron supplementation 325 BID of ferrous sulfate - Monitor H/H as an outpatient - Hemoccult ordered but never collected here -Continue PPI indefinitely CAD - MT in 1978, 1993, 1995, s/p transmural revascularization procedure with laser in 2009 and CABG 2015. Stable, no issues currently - Change to baby aspirin given that we're starting anticoagulation -Continue simvastatin 10mg HS CKD stage III- stable - trend BMP - avoid nephrotoxic medications and will renally dose all medications Diabetes mellitus type 2 -is status post partial pancreatectomy performed in 2009- benign mass - Diet controlled, last hemoglobin A1c in February 2016 was 5.7% Back pain-no current issues - Continue gabapentin 300mg qAM, 600mg qPM and hydrocodone PRN Seasonal asthma- stable - Albuterol neb PRN Substernal Thyroid- pre-existing - Seen on CT chest - has been evaluated in the past multiple times. Stable. Endocrinology had stopped following her. - TSH here normal DVT prophylaxis Pradaxa Code status: Full code Dispo: Discharged to home Total Time Spent: Greater than 30 minutes This includes examination of the patient, discharge planning, medication reconciliation, and communication with other providers. Discharge Instructions Please refer to the electronic Patient Visit Report (Discharge Instructions) for additional information. Follow-Up With PCP within 1 week With passenger agent in 2 weeks with plan for cardioversion in 4 weeks Additional Copies To Jordy Robins M.D.; Shanika Turcios C.R.N.P.
[2017-03-17] MEDS ORDERED: ATOR-24 PO (11:18)
== END 2016-09-11 11:42 | disposition home or self-care (01) | DRG 291 ==
LOC: ENRESERVTM → ENRESERVDT → C.EDB 13:16 → C.2T 18:52
PROVIDERS: ADMIT Hospitalist; ATTEND Family Medicine
DX: I13.0 Hypertensive heart and chronic kidney disease with heart failure and stage 1 through stage 4 chronic kidney disease, or unspecified chronic kidney disease (principal); I50.43 Acute on chronic combined systolic (congestive) and diastolic (congestive) heart failure; I47.2 Ventricular tachycardia; I48.91 Unspecified atrial fibrillation; Z95.1 Presence of aortocoronary bypass graft; I25.10 Atherosclerotic heart disease of native coronary artery without angina pectoris; E11.22 Type 2 diabetes mellitus with diabetic chronic kidney disease; J45.909 Unspecified asthma, uncomplicated; N18.3 Chronic kidney disease, stage 3 (moderate); I25.2 Old myocardial infarction; E66.01 Morbid (severe) obesity due to excess calories; E87.6 Hypokalemia; D63.8 Anemia in other chronic diseases classified elsewhere; I27.2 Other secondary pulmonary hypertension; Z86.73 Personal history of transient ischemic attack (TIA), and cerebral infarction without residual deficits; Z87.891 Personal history of nicotine dependence; K21.9 Gastro-esophageal reflux disease without esophagitis; Z98.84 Bariatric surgery status; E78.00 Pure hypercholesterolemia, unspecified; E53.8 Deficiency of other specified B group vitamins; G47.33 Obstructive sleep apnea (adult) (pediatric); Z96.651 Presence of right artificial knee joint; Z96.1 Presence of intraocular lens; Z79.82 Long term (current) use of aspirin; Z82.3 Family history of stroke; Z82.49 Family history of ischemic heart disease and other diseases of the circulatory system; E04.8 Other specified nontoxic goiter

== ENCOUNTER → 2016-09-15 | Outpatient (CLI) | payer OTHER ==
[~2016-09-15] MED LIST changes: -ASPI325T39 PO; +ATOR-24 PO; -HYZ/10015 PO
--- NOTE | 2016-09-16 06:38 | SPLIT NIGHT TECHNICIAN REPORT ---
[facility] Split Night Polysomnogram - Director Of Scout Work Report Study date: 09/15/2016 Referring Physician: DR. SKAGGS Name: ISIDRO GRAY Director Of Scout Work: Kassie Hernandez [facility] Date of : 1940 Height: 75 years, Height 5' 3" Sex: Female Weight: 158.4 lbs Age: 75 Neck Circum: 14 in BMI: Medications: 28.06 AMLODIPINE 5 MG, ASPIRIN 81 MG, BOITIN 5000 MCG, BYSTOLIC 10 MG, CALCIUM 600 MG, GEHPDLW-[id number]-FAC D 250-125-200 MG, ESOMEPRAZOLE 40 MG, FERROUS SULFATE 325 MG, FUROSEMIDE 40 MG, GABAPENTIN 300 MG, LOSARTAN 100 MG, MULTI VIT, POTASSIUM CHLORIDE 8 MEQ, PRADAXA 150 MG, PREDNISOLONE ACETATE 1% OPHTHALMIC SOLN, PRESERVISION, SIMVASTATIN 10 MG, TRAMADOL 50 MG, VIT B, VIT C, VIT D3, ZINC 25 MG Patient History 75 yr-old female here for a baseline/split study. She has a history of loud snoring, witnessed apnea, right heart strain, and right ventricular overload. She is to be placed on CPAP if the AHI exceeds 5 (per doctor's order). Her [place] scale is 7. She is sleeping in a recliner chair for the study. The test was started on room air. ETCO2 testing was not utilized during this study. Room 1 Parameters Monitored NPSG: E1-M2, E2-M1, Fp1-M2, Fp2-M1, F3-M2, F4-M2, F4-M1, C3-M2, C4-M2, C4-M1, O1-M2, O2-M2, O2-M1, T3-M2, T4-M1, P3-M2, P4-M1, CHIN1, CHIN2, HR, EKG, Legs, PFLOW, SNOR, FLOW, CFLOW, Tidal Volume, THOR, ABDO, SpO2, PLTH, CPRESS, ETCO2 Wave, ETCO2, pH SLEEP SUMMARY DATA DIAGNOSTIC TREATMENT Lights Out: 10:52:27 PM 1:32:57 AM Lights On: 1:09:57 AM 5:49:57 AM Total Recording Time (TRT): 137.5 min. 257.0 min. Total Sleep Time (TST): 129.5 min. 202.5 min. NREM Time: 114.0 min. 135.5 min. REM Time: 15.5 min. 67.0 min. Sleep Period Time (SPT): 131.5 min. 238.0 min. Sleep Efficiency (SE): 94 % 79 % Sleep Latency: 6.0 min. 19.0 min. Arousal Index: 11.6 11.6 PAP Treatment Levels: 4, 6, 8, 10, 12/8, 14/10, 15/11 * Optimal Pressure(s) SLEEP STAGING DATA DIAGNOSTIC TREATMENT Duration (min) TST % Duration (min) TST % Stage Wake: 8.0 min. -- 54.5 min. -- WASO: 2.0 min. -- 35.5 min. -- NREM: 114.0 min. 88 % 135.5 min. 67 % Stage N1: 29.0 min. 22 % 28.0 min. 14 % Stage N2: 85.0 min. 66 % 107.5 min. 53 % Stage N3: 0.0 min. 0 % 0.0 min. 0 % REM: 15.5 min. 12 % 67.0 min. 33 % POSITIONAL DATA Event Count Index Event Count Index Supine: 57 26.4 52 15.4 Supine NREM: 47 24.7 50 22.1 Supine REM: 10 39 2 2 Non-Supine: N/A N/A N/A N/A Non-Supine NREM: N/A N/A N/A N/A Non-Supine REM: N/A N/A N/A N/A AROUSAL SUMMARY DATA: Event Count Index Event Count Index Apnea Arousals: 8 6.9 12 5.3 Hypopnea Arousals: 13 6.0 14 4.1 Snore Arousals: 0 0.0 0 0.0 PLM Arousals: 1 0.5 0 0.0 Non-Specific Arousals: 3 1.4 15 4.4 Total Arousals: 25 11.6 39 11.6 MYOCLONUS (PLM) Event Count Index Event Count Index PLM: 5 2.3 0 0.0 PLM AROUSAL: 1 0.5 0 0.0 PLM W/O AROUSAL 5 2.3 0 0.0 PLM W/RESP EVENT 0 0.0 0 0.0 MYOCLONUS (PLM) Event Count Index Event Count Index LM: 0 11.6 24 7.1 LM AROUSAL: 0 0.0 1 0.3 LM W/O AROUSAL LM W/RESP EVENT LM NON SPECIFIC 20 9.3 16 4.7 HEART RATE DATA DIAGNOSTIC TREATMENT Sleep (bpm): 65 69 REM (bpm): 88 96 NREM (bpm): 89 94 Tachycardia Count: 0 0 Tachycardia Duration: 0.00 0 Bradycardia Count: 0 0 Bradycardia Duration: 0.00 0 DIAGNOSTIC PORTION TREATMENT PORTION RESPIRATORY DATA Event Count Index Event Count Index AHI: -- 26.4 -- 15.4 RDI: -- 26.4 -- 15 Obstructive Apnea: 15 6.9 17 5.0 Central Apnea: 0 0.0 0 0.0 Mixed Apnea: 0 0.0 1 0.3 Hypopnea: 42 19.5 34 10.1 RERA: 0 0.0 0 0.0 Total Apneas: 15 6.9 18 5.3 RESPIRATORY DATA REM NREM SLEEP REM NREM SLEEP Supine Position: Obstructive Apneas: 0 15 15 1 16 17 Central Apneas: 0 0 0 0 0 0 Mixed Apneas: 0 0 0 0 1 1 Hypopneas: 10 32 42 1 33 34 RERA 0 0 0 0 0 0 Total Supine Events: 10 47 57 2 50 52 Supine AHI: 39 24.7 26.4 2 22.1 15.4 Supine RDI: 38.7 24.7 26.4 1.8 22.1 15.4 REM NREM SLEEP REM NREM SLEEP Non-Supine Position: Obstructive Apneas: N/A N/A N/A N/A N/A N/A Central Apneas: N/A N/A N/A N/A N/A N/A Mixed Apneas: N/A N/A N/A N/A N/A N/A Hypopneas: N/A N/A N/A N/A N/A N/A RERA N/A N/A N/A N/A N/A N/A Total Supine Events: N/A N/A N/A N/A N/A N/A Supine AHI: N/A N/A N/A N/A N/A N/A Supine RDI: N/A N/A N/A N/A N/A N/A OXYGEN DESTAURATION DATA: Event Count Index Event Count Index REM Desaturations: 12 46.5 5 4.5 NREM Desaturations: 55 28.9 46 20.4 SNORE DATA DIAGNOSTIC TREATMENT Snore Time: 0.4 1:51:57 AM Snore TST%: 0 0 Snore Arousal Count: 0 0 Snore Arousal Index: 0.0 0.0 Desaturation Event Summary: Minimum %SpO2 Event Count Mean/Min/Max Duration(sec.) Desaturation Index % Time In Bed > 90 105 33.1 / 12.0 / 60.0 21.6 74.1 86 - 90 35 27.6 / 6.3 / 53.8 25.8 20.7 81 - 85 8 17.9 / 6.3 / 26.3 28.2 4.3 76 - 80 1 22.5 / 22.5 / 22.5 16.5 0.9 71 - 75 0 N/A 0.0 0.0 66 - 70 0 N/A 0.0 0.0 61 - 65 0 N/A 0.0 0.0 56 - 60 0 N/A 0.0 0.0 51 - 55 0 N/A 0.0 0.0 < 50 0 N/A 0.0 0.0 OXYGEN SATURATION DATA DIAGNOSTIC TREATMENT SpO2 Mean Sleep: 89 % 95 % SpO2 Mean REM: 88 % 96 % SpO2 Mean NREM: 89 % 94 % SpO2 Minimum Sleep: 76 % 84 % SpO2 Minimum REM: 78 % 84 % SpO2 Minimum NREM: 76 % 85 % Time Below 90% (TST): 76.2 4.3 Time Below 88% (TST): 45.2 1.0 Total REM NREM Awake <50% 0.0 min. 0.0 min. 0.0 min. 0.0 min. 51 - 60% 0.0 min. 0.0 min. 0.0 min. 0.0 min. 61 - 70% 0.0 min. 0.0 min. 0.0 min. 0.0 min. 71 - 80% 3.6 min. 0.2 min. 3.4 min. 0.0 min. 81 - 90% 98.5 min. 13.1 min. 78.6 min. 6.9 min. 91 - 100% 291.6 min. 69.3 min. 167.3 min. 55.0 min. Average 93 94 92 94 Minimum SpO2 76 78 76 81 Desaturation Event Index 20.1 12.4 24.3 14.4 # Desat. Events below 89% 78 13 56 9 Time(%) with Saturation below 89% 18.1 2.6 14.4 1.1 Time(min.) with Saturation below 89% 71.3 10.3 56.7 4.3 Recording Director Of [employer] Work Comments: Ms. Gray slept in the supine position in a recliner chair. Cardiac arrhythmias were noted (please refer to the printouts). No PLMs noted. No bruxism noted. Snoring was noted and scored as a 2-3 on a scale of 1 through 5. (0=no snoring, 5=snoring loud enough to be heard through a closed door or down the [address] way) At 1:32, she met specific Split-Night criteria during the diagnostic portion of this study. CPAP was initiated at +4 CMH2O and up-titrated to a level of +10 CMH2O, Cflex 2. She then woke up and stated that she was working to have to breathe out. At that point, she was placed on BiPAP at +12/8 CMH2O and up titrated to a level of 15/11 CMH2O BiFlex 2. An AirFit full face mask size medium from [employer] was used during titration She awoke to use the restroom one time during the night. Ms. Gray stated that she slept better than she thought she would have. The final report will be interpreted and signed by a sleep physician. The completed physician report will then be placed in the patient medical record. Therapy Event: Therapy (cm H20) 0 4 6 8 10 12/8 14/10 15/11 Total Time at Pressure (min.) 137.5 24.7 13.7 25.3 55.7 78.1 15.1 44.5 TST at Pressure (min.) 129.5 5.2 13.7 25.3 39.9 59.4 14.6 44.5 # Periods 1 1 1 1 1 1 1 1 Sleep Onset (min.) 6.0 19.0 0.0 0.0 0.0 18.2 0.0 0.0 REM Onset (min.) 64.0 N/A N/A N/A 21.4 N/A 14.6 0.0 Sleep Efficiency % 94 21 100 100 71 76 96 100 Wakefulness (%) 5.8 79.0 0.0 0.0 28.4 23.9 3.3 0.0 Wakefulness (min.) 8.0 19.5 0.0 0.0 15.8 18.7 0.5 0.0 NREM 1 (%) 21.1 21.0 38.9 2.0 9.9 5.8 46.3 0.0 NREM 1 (min.) 29.0 5.2 5.3 0.5 5.5 4.5 7.0 0.0 NREM 2 (%) 61.8 0.0 61.1 98.0 22.2 70.3 46.8 0.0 NREM 2 (min.) 85.0 0.0 8.3 24.8 12.4 54.9 7.1 0.0 NREM 3 (%) 0.0 0.0 0.0 0.0 0.0 0.0 0.0 0.0 NREM 3 (min.) 0.0 0.0 0.0 0.0 0.0 0.0 0.0 0.0 REM (%) 11.3 0.0 0.0 0.0 39.5 0.0 3.6 100.0 REM (min.) 15.5 0.0 0.0 0.0 22.0 0.0 0.5 44.5 # Arousals 25 4 5 6 9 5 9 1 Arousal Index 11.6 46.4 21.9 14.2 13.5 5.0 37.0 1.3 # Snore 17 0 0 3 1 4 3 0 Snore Index 7.9 0.0 0.0 7.1 1.5 4.0 12.3 0.0 AHI 26.4 69.5 30.7 35.6 7.5 8.1 45.2 0.0 AHI Supine 26.4 69.5 30.7 35.6 7.5 8.1 45.2 0.0 AHI Non-Supine N/A N/A N/A N/A N/A N/A N/A N/A NREM AHI 24.7 69.5 30.7 35.6 10.1 8.1 46.9 N/A REM AHI 38.7 N/A N/A N/A 5.5 N/A 0.0 0.0 RDI 26.4 69.5 30.7 35.6 7.5 8.1 45.2 0.0 # Obstructive 15 0 0 1 2 5 9 0 # Central Ap 0 0 0 0 0 0 0 0 # Mixed 0 0 0 1 0 0 0 0 # Hypopneas 42 6 7 13 3 3 2 0 RERAS 0 0 0 0 0 0 0 0 Total Respiratory Events 57 6 7 15 5 8 11 0 Time Below SpO2 89.00% (min.) 64.9 0.0 0.0 1.1 0.5 0.4 0.1 0.0 Mean NREM SpO2 (%) 89 93 95 94 96 94 96 N/A Mean REM SpO2 (%) 88 N/A N/A N/A 94 N/A 97 97 Mean Sleep SpO2 (%) 89 93 95 94 95 94 96 97 Min NREM SpO2 (%) 76 88 89 85 87 86 87 N/A Min REM SpO2 (%) 78 N/A N/A N/A 84 N/A 96 94 Position Supine (min.) 129.5 5.2 13.7 25.3 39.9 59.4 14.6 44.5 Position Non-supine (min.) 0.0 0.0 0.0 0.0 0.0 0.0 0.0 0.0 LM Index Sleep 13.9 11.6 4.4 7.1 9.0 4.0 24.6 4.0 LM Index NREM 13.7 11.6 4.4 7.1 10.1 4.0 25.6 N/A LM Index REM 15.5 N/A N/A N/A 8.2 N/A 0.0 4.0 Mean Heart Rate (bpm) 65 65 65 66 69 70 71 71 Min Heart Rate (bpm) 48 56 54 52 52 57 59 58 CPAP REPORT Therapy Detail Time / Page # Comment CPAP 4 cm H2O Full Face Mask Flex Pressure Relief Humidifier on 1:32:13 AM / pg. 616 HER AHI WAS ABOVE 5 (PER THE DOCTOR'S ORDER) AND SHE HAD BEEN ASLEEP FOR OVER 2 HOURS CPAP 6 cm H2O Full Face Mask Flex Pressure Relief Humidifier on 1:57:38 AM / pg. 667 INCREASED FOR APNEAS AND HYPOPNEAS CPAP 8 cm H2O Full Face Mask Flex Pressure Relief Humidifier on 2:11:18 AM / pg. 694 INCREASED FOR HYPOPNEAS CPAP 10 cm H2O Full Face Mask Flex Pressure Relief Humidifier on 2:36:36 AM / pg. 745 INCREASED FOR HYPOPNEAS AND APNEAS BiLevel 12/8 cm H2O Full Face Mask Flex Pressure Relief Humidifier on 3:32:15 AM / pg. 856 SHE WAS FEELING LIKE SHE HAD TO WORK TO BREATHE SHE STATED. SHE TRIED A NASAL MASK AND THEN TRIED BIPAP. SHE IS NOW ON BIPAP BUT BACK WITH THE FULL FACE MASK. BiLevel 14/10 cm H2O Full Face Mask Flex Pressure Relief Humidifier on 4:50:23 AM / pg. 1012 INCREASED EPAP FOR OBSTRUCTIVE APNEAS AND INCREASED THE IPAP TO KEEP THE PRESSURE DIFFERENTIAL OF 4 BiLevel 15/11 cm H2O Full Face Mask Flex Pressure Relief Humidifier on 5:05:30 AM / pg. 1043 INCREASED EPAP FOR OBSTRUCTIVE APNEAS AND INCREASED THE IPAP TO KEEP THE PRESSURE DIFFERENTIAL OF 4
--- NOTE | 2016-09-19 10:10 | POLYSOMNOGRAPH REPORT ---
CLINICAL DATA: 75-year-old female referred by Shanika Turcios and myself for evaluation of possible sleep apnea as a cause for right heart strain and right ventricular overload. This was a split night study. She has a BMI of 28. SLEEP ARCHITECTURE: For the diagnostic portion of the study, total sleep period was 131.5 minutes. Total sleep time was 129.5 minutes divided between 114 minutes of non-REM sleep and 15.5 minutes of REM sleep. Sleep latency was 6 minutes. Arousal index was 11.6. Sleep efficiency was 94%. Sleep consisted of stage N1 22%, N2 66%, REM 12%. For the treatment portion of the study, total sleep period was 238 minutes. Total sleep time was 202.5 minutes divided between 135.5 minutes of non-REM sleep and 67 minutes of REM sleep. Sleep onset latency was 19 minutes. Arousal index was 11.6. Sleep efficiency was 79%. Sleep consisted of stage N1 14%, N2 52%, REM 33%. AROUSAL DATA: Prior to treatment, 25 arousals were recorded for an index of 11.6 per hour. During treatment 39 arousals were recorded for an index of 11.6 per hour. PLM DATA: Prior to treatment, 20 limb movements during sleep were noted for an index of 9.3 per hour. During treatment, 16 limb movements during sleep were noted for an index of 4.7 per hour. EKG: Heart rates ranged from 65-96 beats per minute. Atrial fibrillation appeared to be present. RESPIRATORY DATA: Moderate sleep apnea was documented prior to treatment. The AHI was 26.4. There were 15 obstructive apneic episodes and 42 hypopneic episodes recorded. During treatment, the mean AHI was 15.4. There were 17 obstructive and 1 mixed apneic episode and 34 hypopneic episodes recorded. OXIMETRY DATA: Nocturnal hypoxemia was seen prior to treatment. Oxygen wyatt was 76% during non-REM sleep prior to treatment. Mean saturation during treatment was 95%. PROPOSAL SPECIALIST'S COMMENTS: The patient slept supine in a recliner chair. Snoring was moderate, rated 2-3 on a scale of 1-5. At 1:32 a.m., she met split night criteria and CPAP was started. She was titrated up to 10 cm water pressure, but she was having difficulty with CPAP. Therefore, BiPAP was started at 12/8 and titrated up to final setting BiPAP / Bi-Flex setting #2 using an Air Fit full face mask size medium from [employer]. At her final pressure setting, she slept for 44.5 minutes with an AHI of 0 and correction of her nocturnal hypoxemia. IMPRESSION: Moderate sleep apnea/hypopnea with nocturnal hypoxemia with diagnostic AHI of 26.4 corrected with BIPAP 15/11, Bi-Flex setting #2 using an Air Fit full face mask size medium from [employer]. RECOMMENDATIONS: The patient should be started on the above noted treatment regimen and seen back in followup within 90 days to document efficacy and compliance. MTDD
== END | disposition home or self-care (01) ==
LOC: C.NEUR 20:00
PROVIDERS: ATTEND Internal Medicine Pulmonary Disease
DX: G47.34 Idiopathic sleep related nonobstructive alveolar hypoventilation (principal); I27.2 Other secondary pulmonary hypertension

== ENCOUNTER → 2016-09-19 | Outpatient (CLI) | payer OTHER | END | disposition home or self-care (01) | LOC: C.RC 16:34 | PROVIDERS: ATTEND Family Medicine | DX: G47.34 Idiopathic sleep related nonobstructive alveolar hypoventilation (principal); I27.2 Other secondary pulmonary hypertension ==

== ENCOUNTER → 2016-09-30 | Outpatient (CLI) | payer OTHER ==
[~2016-09-30] VITALS: Ht 160 cm; Wt 72.8 kg
[2016-09-30 16:12] VITALS: BP 116/76; PULSE 88; Ht 160 cm; Wt 72.8 kg
== END | disposition home or self-care (01) ==
LOC: C.NEUR 14:38
PROVIDERS: ATTEND Internal Medicine Pulmonary Disease
DX: G47.33 Obstructive sleep apnea (adult) (pediatric) (principal); G47.34 Idiopathic sleep related nonobstructive alveolar hypoventilation

== ENCOUNTER → 2016-10-03 | Outpatient (CLI) | payer OTHER ==
[2016-10-03 14:11] LABS: BLOOD UREA NITROGEN 58 mg/dl (7-18); BUN/CREATININE RATIO 44.9 (10-20); CALCIUM 9.6 mg/dl (8.5-10.1); CARBON DIOXIDE 25 mmol/L (21-32); CHLORIDE 109 mmol/L (98-107); GLUCOSE 108 mg/dl (70-99); POTASSIUM 4.7 mmol/L (3.5-5.1); SODIUM 143 mmol/L (136-145)
== END | disposition home or self-care (01) ==
LOC: C.LAB1850 11:44
PROVIDERS: ATTEND Nurse Practitioner Adult Health
DX: N18.3 Chronic kidney disease, stage 3 (moderate) (principal); I50.9 Heart failure, unspecified

== ENCOUNTER → 2016-11-07 | Outpatient (CLI) | payer OTHER ==
[2016-11-07 17:47] LABS: BLOOD UREA NITROGEN 61 mg/dl (7-18); BUN/CREATININE RATIO 37.9 (10-20); CALCIUM 9.4 mg/dl (8.5-10.1); CARBON DIOXIDE 28 mmol/L (21-32); CHLORIDE 103 mmol/L (98-107); GLUCOSE 97 mg/dl (70-99); POTASSIUM 4.2 mmol/L (3.5-5.1); SODIUM 142 mmol/L (136-145)
== END ==
LOC: C.LAB1850 15:34
PROVIDERS: ATTEND Nurse Practitioner Adult Health
DX: E11.9 Type 2 diabetes mellitus without complications (principal); E78.5 Hyperlipidemia, unspecified

== ENCOUNTER → 2016-12-02 | Outpatient (CLI) | payer OTHER ==
[~2016-12-02] MED LIST changes: -ATOR-24 PO
[2016-12-02 16:41] LABS: URINE APPEARANCE CLEAR (CLEAR); URINE BILIRUBIN NEG (NEG); URINE COLOR YELLOW; URINE NITRITE NEG (NEG); URINE SPECIFIC GRAVITY 1.016 (1.000-1.030); UROBILINOGEN NEG (NEG); ZZUR CULT IF INDIC CLEAN CATCH NO
[2016-12-02 16:49] LABS: MANUAL MICROSCOPIC REQUIRED? NO; REVIEW REQ? NO
[2016-12-02 17:06] LABS: BLOOD UREA NITROGEN 55 mg/dl (7-18); BUN/CREATININE RATIO 32.1 (10-20); CALCIUM 9.6 mg/dl (8.5-10.1); CARBON DIOXIDE 26 mmol/L (21-32); CHLORIDE 107 mmol/L (98-107); GLUCOSE 92 mg/dl (70-99); POTASSIUM 4.8 mmol/L (3.5-5.1); SODIUM 141 mmol/L (136-145)
[2016-12-02 17:07] LABS: PHOSPHORUS 4.2 mg/dl (2.5-4.9)
--- NOTE | 2016-12-07 11:28 | CODING QUERY MEDICAL NECESSITY ---
SUPPORTING DIAGNOSIS NEEDED [facility], A supporting diagnosis is required for the test/procedure performed on this patient in order for us to be reimbursed by the patient's insurance. Please provide a supporting diagnosis for the following test/procedure listed below next to the test name along with your signature. *If there is no additional diagnosis for this patient that would support the following test/procedure please document that below next to the test/procedure. Test(s)/Procedure(s) that require a supporting diagnosis: * ([id number]) B12 VITAMIN LEVEL DIAGNOSIS: DATE OF SERVICE: 12/02/16 Provider Signature: Date: Thank you Bhanu Chapa Health Information Management Once completed, please kindly fax back to [phone] For questions please call [phone]
== END | disposition home or self-care (01) ==
LOC: C.LAB1850 15:30
PROVIDERS: ATTEND Internal Medicine Nephrology
DX: D64.9 Anemia, unspecified (principal); N28.9 Disorder of kidney and ureter, unspecified

== ENCOUNTER → 2016-12-20 | Outpatient (CLI) | payer OTHER ==
[~2016-12-20] VITALS: Ht 160 cm; Wt 73.3 kg
[2016-12-20 14:13] VITALS: BP 114/76; PULSE 73; Ht 160 cm; Wt 73.3 kg
== END | disposition home or self-care (01) ==
LOC: C.NEUR 14:02
PROVIDERS: ATTEND Internal Medicine Pulmonary Disease
DX: G47.33 Obstructive sleep apnea (adult) (pediatric) (principal); I27.2 Other secondary pulmonary hypertension

== ENCOUNTER → 2017-01-05 | Outpatient (CLI) | payer OTHER ==
[2017-01-05 12:51] LABS: BLOOD UREA NITROGEN 43 mg/dl (7-18); BUN/CREATININE RATIO 33.4 (10-20); CALCIUM 9.4 mg/dl (8.5-10.1); CARBON DIOXIDE 29 mmol/L (21-32); CHLORIDE 104 mmol/L (98-107); GLUCOSE 112 mg/dl (70-99); POTASSIUM 3.8 mmol/L (3.5-5.1); SODIUM 140 mmol/L (136-145)
== END | disposition home or self-care (01) ==
LOC: C.LAB1850 11:28
PROVIDERS: ATTEND Internal Medicine Nephrology
DX: N28.9 Disorder of kidney and ureter, unspecified (principal)

== ENCOUNTER 2017-01-06 13:55 | Emergency (ER) | payer OTHER ==
[~2017-01-06] VITALS: Ht 160 cm; Wt 73.5 kg
[~2017-01-06 13:55] MED LIST changes: -CYAN25006 PO; -FRS/40 PO; -FURO-85 PO; -LOSA1TAB38 PO; -NRN600 PO; -NRV/5 PO; -OXYC1TAB3 PO; -POTA8CAP6 PO; -TRAM-10 PO; -ZINC50TA36
[2017-01-06 14:00] VITALS: TEMP 37.1; Ht 160 cm; Wt 73.5 kg
[2017-01-06] MEDS ORDERED: DABI150C PO (16:13)
[2017-01-06 16:37] LABS: URINE APPEARANCE CLEAR (CLEAR); URINE BILIRUBIN NEG (NEG); URINE COLOR YELLOW; URINE NITRITE NEG (NEG); URINE SPECIFIC GRAVITY 1.016 (1.000-1.030); UROBILINOGEN NEG (NEG)
[2017-01-06 16:38] LABS: MANUAL MICROSCOPIC REQUIRED? NO; REVIEW REQ? NO
[2017-01-06] MEDS ORDERED: TRAM-10 PO (16:43)
[2017-01-06] MEDS ORDERED: CYAN25006 PO (16:43)
[2017-01-06] MEDS ORDERED: FURO-85 PO (16:43)
[2017-01-06] MEDS ORDERED: LOSA1TAB38 PO (16:43)
[2017-01-06] MEDS ORDERED: POTA8CAP6 PO (16:43)
[2017-01-06] MEDS ORDERED: FRS/40 PO (16:43)
[2017-01-06] MEDS ORDERED: NRN600 PO (16:43)
[2017-01-06] MEDS ORDERED: NRV/5 PO (16:43)
[2017-01-06] MEDS ORDERED: ZINC50TA36 (16:43)
--- NOTE | 2017-01-06 16:51 | DIAGNOSTIC IMAGING REPORT ---
CT OF THE HEAD WITHOUT CONTRAST CLINICAL HISTORY: Trauma. COMPARISON STUDY: MRI of the brain June 14, 2016. CT DOSE: 537.48 mGy.cm TECHNIQUE: Helical axial images of the head were obtained without IV contrast. Automated exposure control was utilized for the study. A dose lowering technique was utilized adhering to the principles of ALARA. FINDINGS: No acute intracranial hemorrhage, midline shift or mass effect is present. Ventricular system is stable. Basilar cisterns are patent. There are no extra-axial collections. There is an old infarct with the left cerebellar hemisphere which was shown on MRI of June 14, 2016. White matter hypodensity suggests extensive small vessel disease. There are no findings to suggest acute dural sinus thrombosis or acute territorial infarct. There is no calvarial fracture. There may be trace fluid within the left mastoid air cells. IMPRESSION: 1. No acute intracranial findings. 2. No calvarial fracture. 3. 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 Electronically signed by: Hammad Aranda M.D. 01/06/2017 4:49 PM Dictated Date/Time: 01/06/2017 4:47 PM
--- NOTE | 2017-01-06 17:00 | EMERGENCY ROOM VISIT NOTE ---
History Report prepared by Nahun: Marilyn Gallo Under the Supervision of: Dr. Brigido Tan M.D. First contact with patient: 15:59 Chief Complaint: FALL Stated Complaint: FALL INJURY-LT UPPER FLANK NEAR BREAST History of Present Illness The patient is a 76 year old female who presents to the Emergency Room with complaints of a fall yesterday. She was sent to the ED by [employer]. The patient does not remember falling. She woke up yesterday morning in bed in the same place that she fell asleep in. She does not recall falling at all, but believes that she fell because she has bruises on her shoulders, rib pain under her left breast, left sided head pain, and a facial contusion. She had a similar episode last April. She followed with neurology and she is scheduled for an EEG to rule out seizures. She has left rib pain with deep breaths. She denies any tongue bite, incontinence, numbness, weakness, fever, chills, chest pain, palpitations, black or bloody stools, urinary symptoms, SOB, or neck pain. She is on Pradaxa. Source of History: patient Onset: yesterday Position: other (global) Quality: other (fall) Timing: other (episodic) Associated Symptoms: No fevers, No chills, No neck pain, No chest pain, No SOB, No melena, No hematochezia, No urinary symptoms, No weakness, No numbness Note: Pt reports shoulder bruises, rib pain with deep breaths, left head pain, facial contusion. Pt denies tongue bite, incontinence, palpitations. Review of Systems See HPI for pertinent positives & negatives. A total of 10 systems reviewed and were otherwise negative. Past Medical & Surgical Medical Problems: (1) Bronchitis (2) CHF (congestive heart failure) (3) Diabetes (4) Heart disease (5) HTN (hypertension) (6) PNA (pneumonia) (7) Ventricular tachycardia Surgical Problems: (1) History of heart bypass surgery Old medical records were reviewed. Nurse's notes were reviewed and I agree with. Family History Diabetes mellitus FH: heart disease FHx: cancer FHx: gallbladder disease Hypertension Kidney disease Social History Smoking Status: Former Smoker Drug Use: none Marital Status: Occupation Status: retired Current/Historical Medications Scheduled Amlodipine Besylate (Amlodipine Besylate), 5 MG PO QAM Ascorbic Acid (Vitamin C), 1,000 MG PO NOON Aspirin (Aspirin EC Low Dose), 81 MG PO QAM Biotin (Biotin), 5,000 MCG PO QAM Calcium Citrate-Vitamin D (Citracal Maximum), 600 MG PO QAM Cyanocobalamin (Cvs B12), 2,500 MCG PO DAILY Dabigatran Etexilate Mesylate (Pradaxa), 150 MG PO BID Ergocalciferol (Vitamin D2), 2,000 UNITS PO LUNCH Ferrous Sulfate (Ferrous Sulfate), 325 MG PO BIDM Furosemide (Lasix), 20 MG PO QPM Furosemide (Lasix), 40 MG PO QAM Gabapentin (Neurontin), 900 MG PO HS Gabapentin (Gabapentin), 600 MG PO QAM Losartan Potassium (Cozaar), 100 MG PO DAILY Multiple Vitamins W/ Minerals (Preservision Areds 2), 1 CAP PO BID Multiple Vitamins W/ Minerals (Centrum Silver), 1 TAB PO LUNCH Multivitamin (Multivitamin), 1 TAB PO TID Nebivolol Hcl (Bystolic), 10 MG PO QAM Potassium Chloride (Klor-Con Ext Rel), 8 MEQ PO BID Prednisolone Acetate (Ophth) (Pred Forte 1% Oph), 1 DROPS OPR UD Simvastatin (Zocor), 10 MG PO QPM Zinc (Cvs Zinc), Unknown Dose TW Scheduled PRN Oxycodone Immediate Rel Tab (Roxicodone Ir), 1-2 TAB PO Q4H PRN for Severe Pain Tramadol (Ultram), 50 MG PO BID PRN for Pain Allergies Coded Allergies: Banana (Verified Allergy, Intermediate, HIVES/ITCHING, 01/06/17) Iodinated Diagnostic Agents (Verified Allergy, Intermediate, "CONTRAST"- HIVES/ITCHING, 01/06/17) Physical Exam Vital Signs Date Time Temp Pulse Resp B/P (MAP) Pulse Ox O2 Delivery O2 Flow Rate FiO2 01/06/17 18:16 64 18 154/75 98 01/06/17 16:13 66 01/06/17 16:07 67 20 161/84 100 01/06/17 14:00 37.1 70 16 136/79 97 Room Air Physical Exam General: Non ill appearing older female in no acute distress. Well developed well nourished, breathing comfortably on room air. Normal speech HEENT: Normal cephalic. Bruise to the left cheek below the eye. Pupils are equal round and reactive to light. Extraocular movements are intact. Oropharynx is pink with moist mucous membranes. No swelling of the mouth lips or tongue. Neck: Supple with a midline trachea. No meningeal signs or stiffness, no JVD or bruits. No Stridor. Chest: Clear to auscultation bilaterally. No wheezes or rhonchi. No increased work of breathing. Mild tenderness to the left anterior ribs below the breast, no crepitus. Heart: regular rate and rhythm. Abdomen: Soft nontender, nondistended without rebound guarding or rigidity. Extremities: No cyanosis clubbing or edema. No calf tenderness or assymetry Spine/Back. Non tender to palpation. No CVA tenderness Skin: Good turgor without rashes. Neurologic exam: Cranial nerves two through 12 are intact. Motor and sensation are intact and symmetrical throughout. Medical Decision & Procedures ER Provider Diagnostic Interpretation: X-ray results as stated below per interpretation by me and the radiologist. Radiology results as stated below per my review and radiologist interpretation: LEFT RIBS UNILATERAL WITH PA CHEST CLINICAL HISTORY: FALL-LT UPPER FLANK PAIN NEAR BREAST COMPARISON STUDY: Chest radiograph and chest CT September 08, 2016. FINDINGS: There is no pneumothorax or pleural effusion. There are median sternotomy wires. Moderate cardiomegaly is noted without evidence of pulmonary edema. There is an acute minimally displaced fracture of the anterior left fifth rib fracture. Slight deformity of the anterior left fourth rib is age indeterminate but may be old. IMPRESSION: Acute minimally displaced anterior left fifth rib fracture. No pneumothorax. Electronically signed by: Hammad Aranda M.D. 01/06/2017 5:19 PM Dictated Date/Time: 01/06/2017 5:[address] OF THE HEAD WITHOUT CONTRAST CLINICAL HISTORY: Trauma. COMPARISON STUDY: MRI of the brain June 14, 2016. CT DOSE: 537.48 mGy.cm TECHNIQUE: Helical axial images of the head were obtained without IV contrast. Automated exposure control was utilized for the study. A dose lowering technique was utilized adhering to the principles of ALARA. FINDINGS: No acute intracranial hemorrhage, midline shift or mass effect is present. Ventricular system is stable. Basilar cisterns are patent. There are no extra-axial collections. There is an old infarct with the left cerebellar hemisphere which was shown on MRI of June 14, 2016. White matter hypodensity suggests extensive small vessel disease. There are no findings to suggest acute dural sinus thrombosis or acute territorial infarct. There is no calvarial fracture. There may be trace fluid within the left mastoid air cells. IMPRESSION: 1. No acute intracranial findings. 2. No calvarial fracture. 3. 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 Electronically signed by: Hammad Aranda M.D. 01/06/2017 4:49 PM Dictated Date/Time: 01/06/2017 4:47 PM Laboratory Results 01/06/17 16:52 Red Blood Count 3.75, Mean Corpuscular Volume 97.6, Mean Corpuscular Hemoglobin 32.3, Mean Corpuscular Hemoglobin Concent 33.1, Mean Platelet Volume 9.5, Neutrophils (%) (Auto) 53.1, Lymphocytes (%) (Auto) 29.7, Monocytes (%) (Auto) 14.2, Eosinophils (%) (Auto) 2.5, Basophils (%) (Auto) 0.5, Neutrophils # (Auto ) 3.00, Lymphocytes # (Auto) 1.68, Monocytes # (Auto) 0.80, Eosinophils # (Auto ) 0.14, Basophils # (Auto) 0.03 01/06/17 16:52 Test 01/06/17 16:23 01/06/17 16:52 01/06/17 16:59 Urine Color YELLOW Urine Appearance CLEAR (CLEAR) Urine pH 5.0 (4.5-7.5) Urine Specific Nancy 1.016 (1.000-1.030) Urine Protein NEG (NEG) Urine Glucose (UA) NEG (NEG) Urine Ketones NEG (NEG) Urine Occult Blood NEG (NEG) Urine Nitrite NEG (NEG) Urine Bilirubin NEG (NEG) Urine Urobilinogen NEG (NEG) Urine Leukocyte Esterase SMALL (NEG) Urine WBC (Auto) 1-5 /hpf (0-5) Urine RBC (Auto) 0-4 /hpf (0-4) Urine Hyaline Casts (Auto) 1-5 /lpf (0-5) Urine Epithelial Cells (Auto) 5-10 /lpf (0-5) Urine Bacteria (Auto) NEG (NEG) White Blood Count 5.65 K/uL (4.8-10.8) Red Blood Count 3.75 M/uL (4.2-5.4) Hemoglobin 12.1 g/dL (12.0-16.0) Hematocrit 36.6 % (37-47) Mean Corpuscular Volume 97.6 fL (80-100) Mean Corpuscular Hemoglobin 32.3 pg (25-34) Mean Corpuscular Hemoglobin Concent 33.1 g/dl (32-36) Platelet Count 252 K/uL (130-400) Mean Platelet Volume 9.5 fL (7.4-10.4) Neutrophils (%) (Auto) 53.1 % Lymphocytes (%) (Auto) 29.7 % Monocytes (%) (Auto) 14.2 % Eosinophils (%) (Auto) 2.5 % Basophils (%) (Auto) 0.5 % Neutrophils # (Auto) 3.00 K/uL (1.4-6.5) Lymphocytes # (Auto) 1.68 K/uL (1.2-3.4) Monocytes # (Auto) 0.80 K/uL (0.11-0.59) Eosinophils # (Auto) 0.14 K/uL (0-0.5) Basophils # (Auto) 0.03 K/uL (0-0.2) RDW Standard Deviation 45.1 fL (36.4-46.3) RDW Coefficient of Variation 12.5 % (11.5-14.5) Immature Granulocyte % (Auto) 0.0 % Immature Granulocyte # (Auto) 0.00 K/uL (0.00-0.02) Prothrombin Time 12.0 SECONDS (9.0-12.0) Prothromb Time International Ratio 1.1 (0.9-1.1) Activated Partial Thromboplast Time 36.9 SECONDS (21.0-31.0) Partial Thromboplastin Ratio 1.4 Anion Gap 8.0 mmol/L (3-11) Est Creatinine Clear Calc Drug Dose 32.3 ml/min Estimated GFR () 41.9 Estimated GFR (Non- 36.2 BUN/Creatinine Ratio 29.1 (10-20) Calcium Level 9.5 mg/dl (8.5-10.1) Total Bilirubin 0.7 mg/dl (0.2-1) Direct Bilirubin 0.2 mg/dl (0-0.2) Aspartate Amino Transf (AST/SGOT) 32 U/L (15-37) Alanine Aminotransferase (ALT/SGPT) 35 U/L (12-78) Alkaline Phosphatase 133 U/L (45-117) Total Creatine Kinase 103 U/L (26-192) Creatine Kinase MB 0.6 ng/ml (0.5-3.6) Creatine Kinase MB Ratio 0.6 (0-3.0) Total Protein 7.8 gm/dl (6.4-8.2) Albumin 3.5 gm/dl (3.4-5.0) Lipase 147 U/L (73-393) Bedside Troponin I < 0.030 ng/ml (0-0.045) Laboratory studies as stated above per my review. ECG Indication: chest pain Rate (beats per minute): 68 Rhythm: normal sinus Findings: RBBB, no acute ischemic change Comparison ECG Date: 11-Sep-2016 Change: NSR replaced atrial fibrillation. ED Course 1602: Past medical records reviewed. The patient was evaluated in room C5, and a complete history and physical examination were performed. 1710: I reevaluated the patient. She is resting comfortably. She is asking for a drink. CT head is negative and chest X-ray shows no pneumothorax. 1807: Upon reevaluation, the patient is resting comfortably. I discussed the results and treatment plan with her. She verbalized agreement of the treatment plan. The patient was discharged home. 1900: I discussed the patient's case with Dr. Koch, [facility] neurology. She will follow up with the patient. Medical Decision Differentials include, but are not limited to; seizure, syncope, trauma, arrhythmia, electrolyte or metabolic abnormality. This patient comes in as described above. She had an episode 24 hours ago where she may have passed out. She may have actually had a seizure. She somehow got some injuries while she was sleeping. There is no incontinence or tongue biting She had 1 episode prior to this and they are in the process of working up for possible seizures. She seen at [facility] today and then sent to the ER. She has a bruise below her right eye she has no ocular injuries. She has some pain in her left chest but no crepitus. She's had no chest pain or shortness of breath. IV access established, EKG was obtained, CAT scan of her head was obtained and shows no acute intracranial process or hemorrhage. I did this because she is on a blood thinner. X-rays were obtained of the chest with rib series she has no abdominal tenderness. EKG and multiple blood testing was obtained. She has no pneumothorax seen on the chest x-ray she has had a rib fracture on the left. The rest of her workup is unremarkable she strongly desires to go home. She will use Tylenol for pain but do not exceed the [id number] recommended dosages. For breakthrough pain, she can use oxycodone IR 5 mg one or 2 pills every 4 to 6 hours as needed. She was warned that it could make her drowsy do not take before drinking, driving, working. She is scheduled for an EEG. I told her to follow up with her doctor on Monday and it may be that she can get this done sooner. She is scheduled to have surgery on Monday on her thumb. I older to see her doctor and get rechecked first and they may want to for more of a workup and delay the surgery. I told her not to drive or do any activities such as swimming where she could hurt herself or others if she had a seizure. At this point is unclear if she actually had a seizure and she does not feel she wants to start on any seizure medicine at this point and her last possible seizure/spell was almost a year ago. She will follow up with her doctor Monday for recheck or return if any new problems or concerns. Head Trauma GCS Score: 15 Medication Reconcilliation Current Medication List: was personally reviewed by me Blood Pressure Screening Patient's blood pressure: Elevated blood pressure Blood pressure disposition: Elevated BP felt to be situational Consults Time Called: 1853 Consulting Physician: Dr. Koch, [facility] neurology Returned Call: [phone] I discussed the patient's case with him. She will follow up with the patient. Impression Primary Impression: Fracture of rib of left side Additional Impression: Syncope Scribe Attestation The scribe's documentation has been prepared under my direction and personally reviewed by me in its entirety. I confirm that the note above accurately reflects all work, treatment, procedures, and medical decision making performed by me. Departure Information Dispostion Home / Self-Care Prescriptions Oxycodone Immediate Rel Tab (ROXICODONE IR) 5 Mg Tab 1-2 TAB PO Q4H Y for Severe Pain, #24 TAB Prov: Brigido Tan M.D. 01/06/17 Referrals Shanika Turcios C.R.N.P. (PCP) Forms HOME CARE DOCUMENTATION FORM, IMPORTANT VISIT INFORMATION Patient Instructions My [facility] Additional Instructions Rest. Drink plenty of fluids. Be careful when getting up and down. For pain may use acetaminophen/Tylenol a maximum of 650 mg every 6 hours Do not take with any other medications that contain acetaminophen/Tylenol For more severe pain may use OxyIR 5 mg, one or 2 pills every 4-6 hours as needed OxyIR may make you drowsy and do not take before drinking, driving, working Do not take OxyIR with any other medication that is sedating or alcohol Do not drive or swim or do any activities where if you had a seizure you could hurt herself or others Return to the ER if: Increasing pain, shortness of breath, worsening of symptoms , recurrence of symptoms, chest pain, fever, any new problems or concerns Follow-up with your doctor on Monday for recheck. This possibly could have been a seizure and you may need your EEG moved up and you definately should get rechecked before surgery Problem Qualifiers
[2017-01-06 17:15] LABS: BASO % 0.5 %; BASO ABS # 0.03 K/uL (0-0.2); COMPLETE YES; EOS % 2.5 %; HEMATOCRIT 36.6 % (37-47); LYMPH % 29.7 %; LYMPH ABS # 1.68 K/uL (1.2-3.4); MEAN CELL VOLUME 97.6 fL (80-100); MEAN CORPUSCULAR HEMOGLOBIN 32.3 pg (25-34); MEAN CORPUSCULAR HGB CONC 33.1 g/dl (32-36); MEAN PLATELET VOLUME 9.5 fL (7.4-10.4); MONO % 14.2 %; NEUT % 53.1 %; PLATELET COUNT 252 K/uL (130-400); RED BLOOD COUNT 3.75 M/uL (4.2-5.4); WHITE BLOOD COUNT 5.65 K/uL (4.8-10.8)
--- NOTE | 2017-01-06 17:21 | DIAGNOSTIC IMAGING REPORT ---
LEFT RIBS UNILATERAL WITH PA CHEST CLINICAL HISTORY: FALL-LT UPPER FLANK PAIN NEAR BREAST COMPARISON STUDY: Chest radiograph and chest CT September 08, 2016. FINDINGS: There is no pneumothorax or pleural effusion. There are median sternotomy wires. Moderate cardiomegaly is noted without evidence of pulmonary edema. There is an acute minimally displaced fracture of the anterior left fifth rib fracture. Slight deformity of the anterior left fourth rib is age indeterminate but may be old. IMPRESSION: Acute minimally displaced anterior left fifth rib fracture. No pneumothorax. Electronically signed by: Hammad Aranda M.D. 01/06/2017 5:19 PM Dictated Date/Time: 01/06/2017 5:13 PM
[2017-01-06 17:26] LABS: INR 1.1 (0.9-1.1); PARTIAL THROMBOPLASTIN RATIO 1.4
[2017-01-06 17:45] LABS: CKMB/CK RATIO 0.6 (0-3.0)
[2017-01-06 18:07] LABS: BUN/CREATININE RATIO 29.1 (10-20); CALCIUM 9.5 mg/dl (8.5-10.1); CREATININE 1.4 mg/dl (0.60-1.20)
[2017-01-06 18:08] LABS: POTASSIUM 4.5 mmol/L (3.5-5.1)
[2017-01-06 18:16] VITALS: BP 154/75; PULSE 64; O2SAT 98
[2017-01-06] MEDS ORDERED: OXYC1TAB3 PO (18:21)
== END 2017-01-06 18:34 | disposition home or self-care (01) ==
LOC: C.EDB 13:57 → C.EDC 18:34
DX: S22.32XA Fracture of one rib, left side, initial encounter for closed fracture (principal); W19.XXXA Unspecified fall, initial encounter; E11.9 Type 2 diabetes mellitus without complications; I10 Essential (primary) hypertension; Z87.01 Personal history of pneumonia (recurrent); Z95.1 Presence of aortocoronary bypass graft; Z83.3 Family history of diabetes mellitus; Z80.9 Family history of malignant neoplasm, unspecified; Z82.49 Family history of ischemic heart disease and other diseases of the circulatory system; Z84.1 Family history of disorders of kidney and ureter; Z87.891 Personal history of nicotine dependence; Z79.82 Long term (current) use of aspirin; Z79.899 Other long term (current) drug therapy

== ENCOUNTER → 2017-01-09 | Outpatient (CLI) | payer OTHER ==
[~2017-01-09] MED LIST changes: -AMLO2.5T2 PO; -CYAN10005 PO; +CYAN25006 PO; -ESOM1CAP34 PO; +FRS/40 PO; +FURO-85 PO; -LOSA100T65 PO; +LOSA1TAB38 PO; +NRN600 PO; +NRV/5 PO; +OXYC1TAB3 PO; +POTA8CAP6 PO; +TRAM-10 PO; -ZINC PO; +ZINC50TA36
--- NOTE | 2017-01-16 10:06 | EEG Procedure Note ---
EEG Procedure Note Date of Service Jan 09, 2017. Start / End Times Start Time: 01/09/2017 at 10:27 AM End Time: 01/10/2017 at 10:55 AM Referring Physician Sultana Koch History This is a 76-year-old female with rare episodes of missed time and altered consciousness. Ambulatory EEG for further evaluation of possible seizure etiology. Home Medication List Scheduled Amlodipine Besylate (Amlodipine Besylate), 5 MG PO QAM Ascorbic Acid (Vitamin C), 1,000 MG PO NOON Aspirin (Aspirin EC Low Dose), 81 MG PO QAM Biotin (Biotin), 5,000 MCG PO QAM Calcium Citrate-Vitamin D (Citracal Maximum), 600 MG PO QAM Cyanocobalamin (Cvs B12), 2,500 MCG PO DAILY Dabigatran Etexilate Mesylate (Pradaxa), 150 MG PO BID Ergocalciferol (Vitamin D2), 2,000 UNITS PO LUNCH Ferrous Sulfate (Ferrous Sulfate), 325 MG PO BIDM Furosemide (Lasix), 20 MG PO QPM Furosemide (Lasix), 40 MG PO QAM Gabapentin (Neurontin), 900 MG PO HS Gabapentin (Gabapentin), 600 MG PO QAM Losartan Potassium (Cozaar), 100 MG PO DAILY Multiple Vitamins W/ Minerals (Preservision Areds 2), 1 CAP PO BID Multiple Vitamins W/ Minerals (Centrum Silver), 1 TAB PO LUNCH Multivitamin (Multivitamin), 1 TAB PO TID Nebivolol Hcl (Bystolic), 10 MG PO QAM Potassium Chloride (Klor-Con Ext Rel), 8 MEQ PO BID Prednisolone Acetate (Ophth) (Pred Forte 1% Oph), 1 DROPS OPR UD Simvastatin (Zocor), 10 MG PO QPM Zinc (Cvs Zinc), Unknown Dose TW Scheduled PRN Oxycodone Immediate Rel Tab (Roxicodone Ir), 1-2 TAB PO Q4H PRN for Severe Pain Tramadol (Ultram), 50 MG PO BID PRN for Pain Description This is a 21 electrode ambulatory EEG with a single channel dedicated to limited EKG. The electrodes were placed in accordance with the International 10- 20 system. At the start of the recording the patient was in an awake state. Background was well organized and composed of symmetric mixed alpha and beta frequencies. There was a symmetric well-formed moderate amplitude 8-9 Hz posterior dominant rhythm that was reactive to eye opening and closure. Sleep was indicated by vertex waves, symmetric sleep spindles, and slow wave sleep. Patient journal was returned and reviewed. No clinical events were reported. Interpretation This is a normal 24-hour ambulatory EEG. There was no electrographic seizures or epileptiform discharges. Clinical Correlation A normal EEG does not rule out epilepsy if there is a strong clinical suspicion or for spell types not captured.
== END | disposition home or self-care (01) ==
LOC: C.NEUR 09:55
PROVIDERS: ATTEND Psychiatry & Neurology Neurology
DX: R40.4 Transient alteration of awareness (principal)

== ENCOUNTER → 2017-02-16 | Outpatient (CLI) | payer OTHER ==
--- NOTE | 2017-02-16 13:52 | DIAGNOSTIC IMAGING REPORT ---
PA CHEST WITH LEFT-SIDED RIB SERIES CLINICAL HISTORY: Follow-up fifth rib fracture. FINDINGS: A PA chest radiograph with 4 additional views from a left-sided rib series is compared to chest x-ray and chest CT dated 09/08/2016. Correlation is made with rib series dated 01/06/2017. The patient is status post midline sternotomy. The heart is enlarged and there is atherosclerotic calcification of the thoracic aorta. The pulmonary vasculature is noncongested. Chronic interstitial thickening is similar to previous. No airspace consolidation, pleural effusion, or pneumothorax is identified. No pneumothorax is seen. The skeletal structures are osteopenic. There is minimal contour deformity of the left anterior fifth rib, likely related to healing fracture. No additional left-sided rib fracture is seen on the rib series. The remainder of the bony thorax is grossly intact. Surgical clips and suture material are noted in the upper abdomen. IMPRESSION: 1. Cardiomegaly with no acute cardiopulmonary abnormality. 2. There is minimal contour deformity suggesting a healing left fifth anterior rib fracture. No additional left-sided rib fractures are appreciated on the rib series Electronically signed by: Cipriano Diaz M.D. 02/16/2017 1:51 PM Dictated Date/Time: 02/16/2017 1:47 PM
== END | disposition home or self-care (01) ==
LOC: C.RAD 13:08
PROVIDERS: ATTEND Nurse Practitioner Adult Health
DX: S22.32XA Fracture of one rib, left side, initial encounter for closed fracture (principal); X58.XXXA Exposure to other specified factors, initial encounter; I51.7 Cardiomegaly; M95.4 Acquired deformity of chest and rib

== ENCOUNTER → 2017-03-20 | Outpatient (CLI) | payer OTHER ==
[~2017-03-20] MED LIST changes: +ATOR-24 PO; -FRRS300 PO; -LOSA1TAB38 PO; -MULTCHW PO; -SIMV10TA2 PO
[2017-03-20 12:18] LABS: BASO % 0.7 %; BASO ABS # 0.03 K/uL (0-0.2); COMPLETE YES; EOS % 3.8 %; HEMATOCRIT 31.2 % (37-47); IG% 0.4 %; LYMPH ABS # 0.99 K/uL (1.2-3.4); MEAN CELL VOLUME 97.5 fL (80-100); MEAN CORPUSCULAR HEMOGLOBIN 32.2 pg (25-34); MEAN PLATELET VOLUME 9.4 fL (7.4-10.4); MONO % 13.4 %; NEUT % 59.7 %; PLATELET COUNT 277 K/uL (130-400); WHITE BLOOD COUNT 4.49 K/uL (4.8-10.8)
[2017-03-20 12:20] LABS: ESTIMATED AVERAGE GLUCOSE 117 mg/dl; HA1C FLAG Normal (Normal)
[2017-03-20 14:06] LABS: ALT/SGPT 29 U/L (12-78); AST/SGOT 29 U/L (15-37); BLOOD UREA NITROGEN 38 mg/dl (7-18); BUN/CREATININE RATIO 32.8 (10-20); CARBON DIOXIDE 25 mmol/L (21-32); CHLORIDE 108 mmol/L (98-107); CHOLESTEROL 161 mg/dl (0-200); CREATININE 1.16 mg/dl (0.60-1.20); GLUCOSE 119 mg/dl (70-99); POTASSIUM 4.3 mmol/L (3.5-5.1); SODIUM 141 mmol/L (136-145); TRIGLYCERIDES 120 mg/dl (0-150); VERY LOW DENSITY LIPOPROT CALC 24 mg/dl
[2017-03-20 14:11] LABS: ALB/GLOB RATIO 0.8 (0.9-2); ALKALINE PHOSPHATASE 139 U/L (45-117); CHOLESTEROL/HDL RATIO 1.3; HDL CHOLESTEROL 121 mg/dl; LDL CHOLESTEROL CALCULATED 16 mg/dl
== END | disposition home or self-care (01) ==
LOC: C.LAB1850 11:09
PROVIDERS: ATTEND Nurse Practitioner Adult Health
DX: I25.10 Atherosclerotic heart disease of native coronary artery without angina pectoris (principal); E11.22 Type 2 diabetes mellitus with diabetic chronic kidney disease; N18.3 Chronic kidney disease, stage 3 (moderate); D64.9 Anemia, unspecified; R63.5 Abnormal weight gain

== ENCOUNTER → 2017-03-21 | Outpatient (CLI) | payer OTHER ==
[~2017-03-21] VITALS: Ht 160 cm; Wt 75.5 kg
[2017-03-21 14:56] VITALS: BP 121/81; PULSE 81; Ht 160 cm; Wt 75.5 kg
== END | disposition home or self-care (01) ==
LOC: C.NEUR 13:41
PROVIDERS: ATTEND Physician Assistant Medical
DX: G47.33 Obstructive sleep apnea (adult) (pediatric) (principal); I27.20 Pulmonary hypertension, unspecified; I48.91 Unspecified atrial fibrillation; E11.9 Type 2 diabetes mellitus without complications; I50.32 Chronic diastolic (congestive) heart failure

== ENCOUNTER → 2017-04-05 | Outpatient (CLI) | payer OTHER ==
[~2017-04-05] MED LIST changes: -MULT-506 PO; -TRAM-10 PO
[2017-04-05 14:42] LABS: BASO % 0.3 %; BASO ABS # 0.02 K/uL (0-0.2); COMPLETE YES; EOS % 2.6 %; IG% 0.1 %; LYMPH % 14.8 %; LYMPH ABS # 1.08 K/uL (1.2-3.4); MEAN CORPUSCULAR HGB CONC 32.7 g/dl (32-36); MEAN PLATELET VOLUME 9.3 fL (7.4-10.4); MONO % 10.1 %; NEUT % 72.1 %; PLATELET COUNT 281 K/uL (130-400); RED BLOOD COUNT 2.97 M/uL (4.2-5.4); WHITE BLOOD COUNT 7.31 K/uL (4.8-10.8)
[2017-04-05 14:57] LABS: URINE APPEARANCE CLEAR (CLEAR); URINE BILIRUBIN NEG (NEG); URINE COLOR YELLOW; URINE EPITHELIAL CELL AUTO >30 /lpf (0-5); URINE NITRITE NEG (NEG); URINE SPECIFIC GRAVITY 1.018 (1.000-1.030); UROBILINOGEN NEG (NEG); ZZUR CULT IF INDIC CLEAN CATCH NO
[2017-04-05 15:00] LABS: URINE PROTIEN/CREAT RATIO 0.1 (0-0.2); URINE TOTAL PROTEIN 15.6 mg/dl (0-11.9)
[2017-04-05 15:09] LABS: MANUAL MICROSCOPIC REQUIRED? NO; REVIEW REQ? NO
[2017-04-05 15:14] LABS: ALT/SGPT 32 U/L (12-78); AST/SGOT 28 U/L (15-37); BLOOD UREA NITROGEN 31 mg/dl (7-18); BUN/CREATININE RATIO 23.5 (10-20); CALCIUM 9.2 mg/dl (8.5-10.1); CARBON DIOXIDE 28 mmol/L (21-32); CHLORIDE 107 mmol/L (98-107); CHOLESTEROL 163 mg/dl (0-200); GLUCOSE 90 mg/dl (70-99); MAGNESIUM 2.2 mg/dl (1.8-2.4); POTASSIUM 4.4 mmol/L (3.5-5.1); SODIUM 142 mmol/L (136-145)
[2017-04-05 15:17] LABS: CHOLESTEROL/HDL RATIO 1.3; HDL CHOLESTEROL 129 mg/dl; LDL CHOLESTEROL CALCULATED 13 mg/dl; PHOSPHORUS 2.9 mg/dl (2.5-4.9); TRIGLYCERIDES 104 mg/dl (0-150); VERY LOW DENSITY LIPOPROT CALC 21 mg/dl
== END | disposition home or self-care (01) ==
LOC: C.LAB1850 13:23
PROVIDERS: ATTEND Internal Medicine Nephrology
DX: N18.3 Chronic kidney disease, stage 3 (moderate) (principal); I25.10 Atherosclerotic heart disease of native coronary artery without angina pectoris; E78.5 Hyperlipidemia, unspecified; I12.9 Hypertensive chronic kidney disease with stage 1 through stage 4 chronic kidney disease, or unspecified chronic kidney disease; I50.32 Chronic diastolic (congestive) heart failure; I48.0 Paroxysmal atrial fibrillation; I34.0 Nonrheumatic mitral (valve) insufficiency

== ENCOUNTER → 2017-05-08 | Outpatient (CLI) | payer OTHER ==
--- NOTE | 2017-05-08 13:13 | DIAGNOSTIC IMAGING REPORT ---
(CHEST) THORAX WITHOUT CT DOSE: 264.29 mGycm HISTORY: Nodule R91.1 Pulmonary nodule TECHNIQUE: Multiaxial CT images of the chest were performed without contrast. A dose lowering technique was utilized adhering to the principles of ALARA. COMPARISON: 09/08/2016 FINDINGS: Unchanging left and to lesser extent right substernal thyroid. Slight tracheal displacement to the right. No significant mediastinal or hilar adenopathy. Calcification of the coronary arterial vasculature. Unchanged 8 mm long groundglass nodule left pulmonary apex. Minimal atelectasis medial aspect superior segment left lower lobe transaxial image 13. Improved atelectasis of the lingula. Small stable nodular density measuring 3 mm transaxial image 31 medially adjacent to the right major fissure. Postoperative changes to the upper abdomen considered stable. The external hernia unchanged. Improved components of congestive failure. IMPRESSION: 1. Improved components of congestive failure. 2. Interval resolution of the bilateral pleural effusions. 3. Fixed hiatal hernia. 4. Scattered low suspicion nodular densities with a 6-12 month follow-up recommended The above report was generated using voice recognition software. It may contain grammatical, syntax or spelling errors. Electronically signed by: Byron Burrell M.D. 05/08/2017 1:12 PM Dictated Date/Time: 05/08/2017 1:07 PM
== END | disposition home or self-care (01) ==
LOC: C.CTS 12:49
PROVIDERS: ATTEND Nurse Practitioner Adult Health
DX: R91.1 Solitary pulmonary nodule (principal); K44.9 Diaphragmatic hernia without obstruction or gangrene

== ENCOUNTER 2017-06-06 13:27 | Emergency (ER) | payer OTHER ==
[~2017-06-06] VITALS: Ht 160 cm; Wt 76.8 kg
[2017-06-06 13:34] VITALS: TEMP 37; Ht 160 cm; Wt 76.8 kg
--- NOTE | 2017-06-06 14:58 | DIAGNOSTIC IMAGING REPORT ---
LUMBAR SPINE CT CT DOSE: 941.91 mGy.cm HISTORY: Lower back pain. TECHNIQUE: Multiaxial CT images of the lumbar spine were performed and reformatted in the sagittal and coronal plane without the use of contrast. A dose lowering technique was utilized adhering to the principles of ALARA. COMPARISON: Outside hospital thoracic spine MRI 09/01/2016. FINDINGS: No acute fractures within the lumbar spine. Moderate superior endplate compression deformity at L1 remains unchanged. Therefore, this is considered to be chronic. There is 4 mm of retropulsion of the posterior superior corner of L1 resulting in mild central canal narrowing at this level. This is also unchanged. Severe disc space narrowing at L1-L2. Moderate disc space narrowing at L4-5 and L5-S1 with small broad-based posterior disc bulges at these levels. [id number] facet osteoarthritis seen throughout the lumbar spine. Pneumobilia is present. There are surgical clips at the bonilla hepatis. 1.4 cm benign left adrenal adenoma. A few colonic diverticula are partially visualized. Mild levoscoliosis of the thoracolumbar spine junction. IMPRESSION: 1. No acute fractures within the lumbar spine. 2. Old moderate superior endplate compression fracture at L1, unchanged. 3. Degenerative changes as described above. Electronically signed by: Richard Fletcher M.D. 06/06/2017 2:56 PM Dictated Date/Time: 06/06/2017 2:49 PM
--- NOTE | 2017-06-06 15:03 | DIAGNOSTIC IMAGING REPORT ---
PELVIS 1 OR 2 VIEW ROUTINE CLINICAL HISTORY: fall trauma. Pain. COMPARISON: 08/15/2016 DISCUSSION: Moderate degenerative change of all major osseous structures. Several benign calcifications of the left soft tissue pelvis. Nonobstructive bowel pattern. There is no evidence for soft tissue swelling. IMPRESSION: No acute process. Moderate degenerative change. The above report was generated using voice recognition software. It may contain grammatical, syntax or spelling errors. Electronically signed by: Byron Burrell M.D. 06/06/2017 3:02 PM Dictated Date/Time: 06/06/2017 3:01 PM
[2017-06-06] MEDS ORDERED: MoRPHine SULFATE 4 MG/ML 1 ML CARP\\VIAL IM STA (15:08)
[2017-06-06] MEDS ORDERED: OXYC1TAB3 PO ×2 (15:17→15:27)
[2017-06-06 16:16] VITALS: BP 160/70; PULSE 64; O2SAT 99
--- NOTE | 2017-06-06 17:21 | EMERGENCY ROOM VISIT NOTE ---
History Report prepared by Nahun: Eliceo Rincon Under the Supervision of: Kota RetanaO. First contact with patient: 14:04 Chief Complaint: FALL Stated Complaint: FALL;SEVERE PAIN IN TAIL BONE AND ACROSS BUTTOCKS History of Present Illness The patient is a 76 year old female who presents to the Emergency Room with complaints of worsening tail bone pain that started yesterday upon waking. She states that she sleeps on a recliner due to chronic back issues. She notes that yesterday morning, she woke up to tail bone pain, which has since worsened. The patient surmises that this was due to a fall overnight, but she is not certain that she fell. She notes that she has had 2 episodes in the past where she woke up with injuries that were most likely due to falls overnight. She notes that she does sleepwalk and has hurt herself multiple times with doing this. The patient states that her pain in her tail bone is severe, and goes across both sides of her buttocks, and is now going up into her back. The patient states that her pain worsens a lot with getting up and down. The patient denies any numbness or weakness in her legs, or abdominal pain. She denies any headache or neck pain. Chest pain or shortness of breath. Source of History: patient Onset: Yesterday morning Position: other (tail bone- pain) Symptom Intensity: severe Quality: other (after most likely a fall overnight) Timing: worsening Associated Symptoms: + back pain, No chest pain, No weakness, No numbness Note: No other associated symptoms. Review of Systems See HPI for pertinent positives & negatives. A total of 10 systems reviewed and were otherwise negative. Past Medical & Surgical Medical Problems: (1) A-fib (2) Bronchitis (3) CAD (coronary artery disease) (4) CHF (congestive heart failure) (5) Diabetes (6) GERD (gastroesophageal reflux disease) (7) Heart disease (8) HTN (hypertension) (9) Hyperlipemia (10) Hypertension (11) Pancreatic tumor (12) PNA (pneumonia) (13) Renal insufficiency (14) TIA (transient ischemic attack) (15) Ventricular tachycardia Surgical Problems: (1) Gastric bypass status for obesity (2) H/O ovarian cystectomy (3) History of heart bypass surgery (4) Hx of total knee arthroplasty (5) S/P appy (6) S/P carpal tunnel release (7) S/P cholecystectomy (8) S/P tonsillectomy and adenoidectomy (9) S/P trigger finger release Family History Diabetes mellitus FH: heart disease FHx: cancer FHx: gallbladder disease Hypertension Kidney disease Social History Smoking Status: Never Smoker Drug Use: none Marital Status: Occupation Status: retired Current/Historical Medications Scheduled Amlodipine Besylate (Amlodipine Besylate), 5 MG PO QAM Ascorbic Acid (Vitamin C), 1,000 MG PO NOON Aspirin (Aspirin EC Low Dose), 81 MG PO QAM Atorvastatin (Lipitor), 40 MG PO DAILY Biotin (Biotin), 5,000 MCG PO QAM Calcium Citrate-Vitamin D (Citracal Maximum), 600 MG PO QAM Cyanocobalamin (Cvs B12), 2,500 MCG PO DAILY Dabigatran Etexilate Mesylate (Pradaxa), 150 MG PO BID Ergocalciferol (Vitamin D2), 2,000 UNITS PO LUNCH Furosemide (Lasix), 20 MG PO prn Furosemide (Lasix), 40 MG PO QAM Gabapentin (Neurontin), 900 MG PO HS Gabapentin (Gabapentin), 600 MG PO QAM Multiple Vitamins W/ Minerals (Preservision Areds 2), 1 CAP PO BID Nebivolol Hcl (Bystolic), 10 MG PO QAM Potassium Chloride (Klor-Con Ext Rel), 8 MEQ PO BID Zinc (Cvs Zinc), Unknown Dose TW Scheduled PRN Oxycodone Immediate Rel Tab (Roxicodone Ir), 5 MG PO Q6H PRN for Pain Oxycodone Ir (Roxicodone Ir), 2.5 MG PO QAM PRN for Severe Pain Allergies Coded Allergies: Banana (Verified Allergy, Intermediate, HIVES/ITCHING, 06/06/17) Iodinated Diagnostic Agents (Verified Allergy, Intermediate, "CONTRAST"- HIVES/ITCHING, 06/06/17) Physical Exam Vital Signs Date Time Temp Pulse Resp B/P (MAP) Pulse Ox O2 Delivery O2 Flow Rate FiO2 06/06/17 16:16 64 160/70 99 06/06/17 15:06 68 153/74 99 Room Air 06/06/17 13:34 37.0 80 18 159/82 91 Room Air Physical Exam GENERAL: alert, well appearing, well nourished, no distress, non-toxic HEAD: normal cephalic, atraumatic EYE EXAM: normal conjunctiva, PERRL and EOM's grossly intact OROPHARYNX: no exudate, no erythema, lips, buccal mucosa, and tongue normal and mucous membranes are moist EARS: TMs clear b/l NECK: supple, no nuchal rigidity, no adenopathy, non-tender CHEST: stable to compression anteriorly and posteriorly LUNGS: clear to auscultation. Normal chest wall mechanics HEART: no murmurs, S1 normal and S2 normal ABDOMEN: abdomen soft, non-tender, normo-active bowel sounds, no masses, no rebound or guarding. PELVIS: stable to compression anteriorly and posteriorly BACK: Old midline incision with tenderness. Acute reproducible tenderness in the lower lumbar, and bilateral paraspinal tracking to SI joints. UPPER EXTREMITIES: full active and passive range of motion of all joints without tenderness to palpation LOWER EXTREMITIES: full active and passive range of motion of all joints without tenderness to palpation NEURO EXAM: Normal sensorium, cranial nerves II-XII grossly intact, normal speech, no gross weakness of arms, no gross weakness of legs. GCS: 15. Medical Decision & Procedures ER Provider Diagnostic Interpretation: Radiology results as stated below per my review and the radiologist's interpretation: PELVIS 1 OR 2 VIEW ROUTINE CLINICAL HISTORY: fall trauma. Pain. COMPARISON: 08/15/2016 DISCUSSION: Moderate degenerative change of all major osseous structures. Several benign calcifications of the left soft tissue pelvis. Nonobstructive bowel pattern. There is no evidence for soft tissue swelling. IMPRESSION: No acute process. Moderate degenerative change. The above report was generated using voice recognition software. It may contain grammatical, syntax or spelling errors. Electronically signed by: Byron Burrell M.D. 06/06/2017 3:02 PM Dictated Date/Time: 06/06/2017 3:[address] DOSE: 941.91 mGy.cm HISTORY: Lower back pain. TECHNIQUE: Multiaxial CT images of the lumbar spine were performed and reformatted in the sagittal and coronal plane without the use of contrast. A dose lowering technique was utilized adhering to the principles of ALARA. COMPARISON: Outside hospital thoracic spine MRI 09/01/2016. FINDINGS: No acute fractures within the lumbar spine. Moderate superior endplate compression deformity at L1 remains unchanged. Therefore, this is considered to be chronic. There is 4 mm of retropulsion of the posterior superior corner of L1 resulting in mild central canal narrowing at this level. This is also unchanged. Severe disc space narrowing at L1-L2. Moderate disc space narrowing at L4-5 and L5-S1 with small broad-based posterior disc bulges at these levels. [id number] facet osteoarthritis seen throughout the lumbar spine. Pneumobilia is present. There are surgical clips at the bonilla hepatis. 1.4 cm benign left adrenal adenoma. A few colonic diverticula are partially visualized. Mild levoscoliosis of the thoracolumbar spine junction. IMPRESSION: 1. No acute fractures within the lumbar spine. 2. Old moderate superior endplate compression fracture at L1, unchanged. 3. Degenerative changes as described above. Electronically signed by: Richard Fletcher M.D. 06/06/2017 2:56 PM Dictated Date/Time: 06/06/2017 2:49 PM Medications Administered Medications (Trade) Dose Ordered Sig/Nissa Route Start Time Stop Time Status Last Admin Dose Admin Morphine Sulfate (MoRPHine SULFATE INJ) 4 mg NOW STAT IM 06/06/17 15:08 06/06/17 15:09 DC 06/06/17 15:21 4 MG ED Course ED COURSE: Vital signs were reviewed and showed hypertensive situational vitals. The patients medical record was reviewed The above diagnostic studies were performed and reviewed. ED treatments and interventions as stated above. 1407: The patient was evaluated in room B7. A complete history and physical examination was performed. 1508: Ordered Morphine Sulfate Inj 4 mg IM. 1515: Upon reevaluation, the patient is resting more comfortably.I discussed my findings with the patient and she understands and agrees with the treatment plan. Based on the patients age, coexisting illnesses, exam and lab findings the decision to treat as an outpatient was made. The patient remained stable while under my care. The patient appeared well at the time of discharge. Medical Decision Differential diagnoses include major intracranial, cervical, spinal, thoracic, abdominal, pelvic and neurologic injury. Fracture, contusion, sprain, strain, laceration, abrasions included as well. Patient woke up yesterday morning. The base of the coccyx and lower back. She notes that his worst with twisting turning bending. No weakness or numbness in her legs. Able over bowels. Able to urinate. He does take Eliquis for A. fib. No signs of trauma. She does have a history of sleepwalking and believes that she may have slept walk and bumped into something. CT of the lumbar spine was unremarkable. X-rays of the pelvis was benign. No obvious contusions. She was given IM morphine. She is discharged follow-up with PCP as an outpatient. She has no urinary complaints. She is able to ambulate without difficulty. She is otherwise neurologically intact. Discussed with Pt concerning signs and symptoms to watch out for. Pt was instructed to follow up with their PCP and discussed with the patient their option to return to the ED at anytime for persistent or worsening symptoms. The appropriate anticipatory guidance and out-patient management, including indications for return to the emergency department, were explained at length to the patient and understood. [place] Drug Monitoring Program Search Results: patient reviewed within database, no issues identified Medication Reconcilliation Current Medication List: was personally reviewed by me Blood Pressure Screening Patient's blood pressure: Elevated blood pressure Blood pressure disposition: Elevated BP felt to be situational Impression Primary Impression: Lower back pain Scribe Attestation The scribe's documentation has been prepared under my direction and personally reviewed by me in its entirety. I confirm that the note above accurately reflects all work, treatment, procedures, and medical decision making performed by me. Departure Information Dispostion Home / Self-Care Prescriptions Oxycodone Immediate Rel Tab (ROXICODONE IR) 5 Mg Tab 5 MG PO Q6H Y for Pain, #14 TAB Prov: Yovani Vogt, DO 06/06/17 Referrals Shanika Turcios C.R.N.P. (PCP) Patient Instructions Lumbar Pain Causes, My [facility] Additional Instructions Please follow up with your primary care doctor with in the next 24 hours. Any worsening of your symptoms, please return to the ED immediately. This includes any fevers greater than 100.4, worsening pain, chest pain, shortness breath, persistent nausea, vomiting, unable to eat or drink, or any other concerning signs or symptoms from your standpoint. You were given medications during this visit that will inhibit your ability to drive, operate machinery and work. Please do NOT drive, operate machinery or work for the next 12hrs. You were also given a prescription for a narcotic. While taking this medication you should also not drive, operate machinery and or work. Problem Qualifiers Primary Impression: Lower back pain Chronicity: acute Back pain laterality: midline Sciatica presence: without sciatica Qualified Codes: M54.5 - Low back pain
== END 2017-06-06 16:17 | disposition home or self-care (01) ==
LOC: C.EDB 13:29
DX: M54.5 Low back pain (principal); F51.3 Sleepwalking [somnambulism]; R40.2412 Glasgow coma scale score 13-15, at arrival to emergency department; I50.9 Heart failure, unspecified; E11.9 Type 2 diabetes mellitus without complications; I11.0 Hypertensive heart disease with heart failure; E78.5 Hyperlipidemia, unspecified; I47.2 Ventricular tachycardia; I48.91 Unspecified atrial fibrillation; Z79.01 Long term (current) use of anticoagulants; Z79.82 Long term (current) use of aspirin; Z83.3 Family history of diabetes mellitus; Z82.49 Family history of ischemic heart disease and other diseases of the circulatory system; Z84.1 Family history of disorders of kidney and ureter; Z83.79 Family history of other diseases of the digestive system

== ENCOUNTER → 2017-06-08 | Outpatient (CLI) | payer OTHER ==
[~2017-06-08] MED LIST changes: -PRED1SUS3 OPR
--- NOTE | 2017-06-08 11:27 | DIAGNOSTIC IMAGING REPORT ---
SACRUM/COCCYX 3 VIEWS HISTORY: S39.92XA Injury of coccyx [id number] COMPARISON: Pelvis 06/06/2017. FINDINGS: No fractures identified within the sacrum or coccyx. The alignment is intact. Presacral soft tissues are maintained. Degenerative changes seen within the lower lumbar spine are again noted. IMPRESSION: No fractures identified within the sacrum or coccyx. Electronically signed by: Richard Fletcher M.D. 06/08/2017 11:25 AM Dictated Date/Time: 06/08/2017 11:24 AM
== END | disposition home or self-care (01) ==
LOC: C.RAD 10:51
PROVIDERS: ATTEND Nurse Practitioner Adult Health
DX: S39.92XA Unspecified injury of lower back, initial encounter (principal); X58.XXXA Exposure to other specified factors, initial encounter

== ENCOUNTER → 2017-07-12 | Outpatient (CLI) | payer OTHER ==
[~2017-07-12] MED LIST changes: -ASPEC81 PO; +ASPI-320 PO; +CLON0.5T3 PO; +LEVE250T PO
[2017-07-12 12:33] LABS: ALBUMIN 3.3 gm/dl (3.4-5.0); BLOOD UREA NITROGEN 43 mg/dl (7-18); CALCIUM 9.1 mg/dl (8.5-10.1); CARBON DIOXIDE 28 mmol/L (21-32); CREATININE 1.24 mg/dl (0.60-1.20); GLUCOSE 107 mg/dl (70-99); PHOSPHORUS 3.3 mg/dl (2.5-4.9); POTASSIUM 4.5 mmol/L (3.5-5.1); SODIUM 139 mmol/L (136-145)
== END | disposition home or self-care (01) ==
LOC: C.LAB1850 10:19
PROVIDERS: ATTEND Internal Medicine Nephrology
DX: N18.3 Chronic kidney disease, stage 3 (moderate) (principal)

== ENCOUNTER → 2017-08-01 | Outpatient (CLI) | payer OTHER ==
[~2017-08-01] MED LIST changes: +ASPEC81 PO; -ASPI-320 PO; -CLON0.5T3 PO
[2017-08-01 13:41] LABS: BLOOD UREA NITROGEN 39 mg/dl (7-18); CALCIUM 8.6 mg/dl (8.5-10.1); CARBON DIOXIDE 22 mmol/L (21-32); CREATININE 2.62 mg/dl (0.60-1.20); GLUCOSE 113 mg/dl (70-99); POTASSIUM 3.9 mmol/L (3.5-5.1); SODIUM 139 mmol/L (136-145)
== END | disposition home or self-care (01) ==
LOC: C.LAB1850 12:13
PROVIDERS: ATTEND Internal Medicine Nephrology
DX: N18.3 Chronic kidney disease, stage 3 (moderate) (principal)

== ENCOUNTER → 2017-08-08 | Outpatient (CLI) | payer OTHER ==
[2017-08-08 11:28] LABS: BLOOD UREA NITROGEN 25 mg/dl (7-18); CALCIUM 8.5 mg/dl (8.5-10.1); CARBON DIOXIDE 23 mmol/L (21-32); GLUCOSE 94 mg/dl (70-99); PHOSPHORUS 2.3 mg/dl (2.5-4.9); POTASSIUM 3.6 mmol/L (3.5-5.1); SODIUM 142 mmol/L (136-145)
== END | disposition home or self-care (01) ==
LOC: C.LAB1850 10:03
PROVIDERS: ATTEND Internal Medicine Nephrology
DX: N18.3 Chronic kidney disease, stage 3 (moderate) (principal); N28.9 Disorder of kidney and ureter, unspecified

== ENCOUNTER → 2017-09-06 | Outpatient (CLI) | payer OTHER ==
[~2017-09-06] MED LIST changes: -ASPEC81 PO; +ASPI-320 PO; +CLON0.5T3 PO; -NEBI10TA2 PO
[2017-09-06 17:01] LABS: ALBUMIN 3.7 gm/dl (3.4-5.0); BLOOD UREA NITROGEN 30 mg/dl (7-18); CARBON DIOXIDE 26 mmol/L (21-32); CREATININE 1.41 mg/dl (0.60-1.20); GLUCOSE 128 mg/dl (70-99); PHOSPHORUS 3.3 mg/dl (2.5-4.9); POTASSIUM 4.9 mmol/L (3.5-5.1); SODIUM 141 mmol/L (136-145)
== END | disposition home or self-care (01) ==
LOC: C.LAB1850 15:25
PROVIDERS: ATTEND Internal Medicine Nephrology
DX: N28.9 Disorder of kidney and ureter, unspecified (principal)

== ENCOUNTER → 2018-01-15 | Outpatient (CLI) | payer OTHER ==
[~2018-01-15] MED LIST changes: -ASCA500 PO; -CLON0.5T3 PO; -FRS/40 PO; +KLN/5 PO; +OXYC-90 PO; -OXYC1TAB3 PO; -ZINC50TA36; +ZINC50TA36 PO
== END | disposition home or self-care (01) ==
LOC: C.MAMM 11:08
PROVIDERS: ATTEND Internal Medicine Rheumatology
DX: M81.0 Age-related osteoporosis without current pathological fracture (principal); S32.010A Wedge compression fracture of first lumbar vertebra, initial encounter for closed fracture; X58.XXXA Exposure to other specified factors, initial encounter

== ENCOUNTER 2019-02-05 04:42 | Inpatient (IN) ==
[2019-02-05] MEDS ORDERED: fentaNYL citrate 100 MCG/2 ML VIAL IV STA ×2 (04:47→05:37)
--- NOTE | 2019-02-05 04:53 | Emergency Department Note ---
ED Provider Note Name: Maribell Quezada Age: 78 F Arrives Via: EMS Informant: Pt CC: Syncope HPI: 78 female arrives for evaluation following fall. Patient notes she was in bed and then vaguely remembers getting up and then waking up on floor next. She does not know how long she was on the floor for. She is unsure if she hit her head or neck. She notes right lower chest pain anteriorly. Notes she falls regularly and follows with her PCP for this. She admits she has bruising all over her body from regular falls. Patient admits to 1 to 2 drinks of alcohol a night before bed. She denies alcohol problem. She had no medications prior to arrival. Nothing makes pain better nor worse. Admits previous rib fractures from falls. Denies shob, abcominal pain, headache, neck pain, back pain, urinary symptoms, diarrhea, weakness nor other symptoms. Patient is on Xarelto for Paroxysmal Afib. ROS: See above HPI for pertinent positives & negatives. A total of 10 systems reviewed and were otherwise negative. Past Medical History: Extensive, see below Past Surgical History: see below Family History: Sister breast ca, father mi, brother mi, mother NHLymphoma & stroke Social History: Lives alone, retired, admits etoh, previous smoker, denies drug use Home Medications: see below Allergies Bananas, IV dye Physical: Vitals: BP 159/96, P 85, R 18, O2 99%, Temp 36.4 Exam: GENERAL: Patient is uncomfortable appearing and in moderate distress. Intoxicated appearing and smells heavily of alcohol EYES: No scleral icterus, unremarkable pupils. ENT: Mucous membranes dry, no nasal congestion. NECK: No masses appreciated, no meningismus, trachea is midline. RESPIRATORY: No dyspnea. Clear to auscultation and equal bilaterally. No wheeze, no rhonchi. CARDIOVASCULAR: Regular rate and rhythm. No murmurs, rubs, gallops appreciated. CHEST: TTP Over right lower anterior ribs GASTROINTESTINAL: Abdomen soft, non-tender, no peritonitis. Bowel sounds positive. No masses appreciated. BACK: No midline tenderness, no CVA tenderness EXTREMITIES: Normal motion all extremities, no cyanosis, no edema. NEUROLOGIC: Intoxicated though awake, no acute motor or sensory deficits, no focal weakness, cranial nerves grossly intact. SKIN: Extensive multiple ages bruises over much of body. Otherwise no rash, no jaundice, no diaphoresis. GCS 15 ED Course: Prior Medical Record, Triage/Nursing Notes, Medications, Allergies reviewed by Me Vital Signs: reviewed and remarkable for HTN Labs: Reviewed and remarkable for +etoh, elevated bun Interventions: Saline lock, fentanyl 50mcg IV x 2, banana bag Imaging: [facility] Radiologist interpretation reviewed by me: CT head/cervical negative. EKG: Per My Interpretation: Indication Syncope: Afib 72 bpm no ischemia qtc 470. NSR on previous EKG 03.09.2018 Blood pressure: Elevated - Referred to Hospitalist Consults: Dr Núñez (ID Hospitalist) who will evaluate patient further Disposition: Hospitalization Prescriptions: None. Differentials: ICH, Stroke, ACS, Etoh, electrolyte, fracture, pneumothorax amongst other pathologies. Medical Decision Makin yr old female arrives from home acutely intoxicated complaining right rib pain and not remembering what happened overnight. She has extensive history including being on Xarelto for paroxysmal afib. She does not remember what happened and given fall ct head/cervical spine done which was unremarkarble. CXR with old right rib fractures, though suspect right anterior fracture by exam. Requiring several rounds IV fentanyl for pain. BUN elevated consistent with dehydration and she denies blood in stool. She has elevated ETOH and after cara discussion with patient she admits she drinks glasses of [place] [employer] each night. Was given banana bag as she is dehydrated and I suspect an alcoholic. I suspect the REM sleep disorder she reports she has may actually be alcohol related given she states she drinks this much every night. With persistent pain, being on xarelto and appearing to have significant alcohol problem I feel discharge may not be safe at this time. Hospitalist consulted for further management. Impression: Syncope Alcoholism Alcohol intoxication Closed Fracture of rib right side Acute Dehydration Anton Pollack MD Impression & Plan Syncope, Alcoholism, Alcohol intoxication, Closed fracture of rib of right side, Acute dehydration Past Med/Surg History Social History Preferred Language: Spanish marital status: / Current Living Situation: Alone current occupational status: retired Feels Safe at Home: Yes Smoking Status: Former smoker Age Started Using Tobacco: 16 ; Age Quit Using Tobacco: 50 ; packs per day: 1.5 ; Cigarettes Per Day: 30 ; Second Hand Exposure: Yes ; Hx Alcohol Use: Yes Alcohol Intake Frequency: Daily Hx Substance Use: No Childhood Exposure to Second-Hand Smoke: No Dental Care, Regularly: Yes Physical Activity Frequency: Does not Exercise Seatbelt Use: always Results & Data Vital Signs Vital Signs - 24 hr 02/05/19 04:43 02/05/19 05:44 Temperature 36.4 C L Temperature Source Oral Sepsis Action Taken by Nursing No Action Required Pulse Rate 77 Pulse Rate [Finger] 85 Respiratory Rate 20 18 Respiratory Effort / Characteristics Non-Labored Spontaneous Respiratory Depth Normal Blood Pressure 164/89 H Blood Pressure [Right Arm] 159/96 H Blood Pressure Mean 114 Blood Pressure Mean [Right Arm] 117 Pulse Oximetry 97 99 Oxygen Delivery Method Room Air Room Air Laboratory Data Result diagrams: 02/05/19 04:59 02/05/19 04:59 Lab Results 02/05/19 02/05/19 02/05/19 Range/Units 04:59 04:59 04:59 WBC 6.67 (4.8-10.8) K/uL RBC 3.48 L (4.2-5.4) M/uL Hgb 11.1 L (12.0-16.0) g/dL Hct 33.3 L (37-47) % MCV 95.7 (80-100) fL MCH 31.9 (25-34) pg MCHC 33.3 (32-36) g/dL RDW Std Deviation 49.9 H (36.4-46.3) fL RDW Coeff of Argenis 14.2 (11.5-14.5) % Plt Count 241 (130-400) K/uL MPV 9.6 (7.4-10.4) fL Immature Gran % (Auto) 0.6 % Neut % (Auto) 56.4 % Lymph % (Auto) 29.8 % Bartholomew % (Auto) 10.8 % Eos % (Auto) 2.1 % Baso % (Auto) 0.3 % Immature Gran # (Auto) 0.04 H (0.00-0.02) K/uL Neut # (Auto) 3.76 (1.4-6.5) K/uL Lymph # (Auto) 1.99 (1.2-3.4) K/uL Bartholomew # (Auto) 0.72 H (0.11-0.59) K/uL Eos # (Auto) 0.14 (0-0.5) K/uL Baso # (Auto) 0.02 (0-0.2) K/uL Sodium 140 (136-145) mmol/L Potassium 3.6 (3.5-5.1) mmol/L Chloride 104 (98-107) mmol/L Carbon Dioxide 25 (21-32) mmol/L Anion Gap 11.0 (3-11) BUN 40 H (7-18) mg/dl Creatinine 1.14 (0.6-1.2) mg/dl Est Cr Clr Drug Dosing 39.2 ml/min Est GFR ( Amer) 53.0 Est GFR (Non-Af Amer) 45.7 BUN/Creatinine Ratio 34.7 H (10-20) Glucose 125 H (70-99) mg/dl Calcium 9.2 (8.5-10.1) mg/dl Magnesium 1.9 (1.8-2.4) mg/dl Total Creatine Kinase 48 (26-192) U/L Troponin I < 0.015 (0-0.045) ng/ml Ethyl Alcohol mg/dL 210.0 H (0-3) mg/dl Administered Medications Discontinued Medications Fentanyl Citrate (Fentanyl Citrate) 50 mcg IV NOW STA Stop: 02/05/19 04:48 Last Admin: 02/05/19 05:03 Dose: 50 mcg Documented by: [id number] Fentanyl Citrate (Fentanyl Citrate) 50 mcg IV NOW STA Stop: 02/05/19 05:38 Last Admin: 02/05/19 05:43 Dose: 50 mcg Documented by: [id number] Multivitamins 10 ml/ Thiamine HCl 100 mg/ Folic Acid 1 mg/Sodium Chloride 1,011.2 mls @ 1,011.2 mls/hr IV .Q1H [facility] Stop: 02/05/19 06:44 Last Admin: 02/05/19 06:13 Dose: 1,011.2 mls/hr Documented by: [id number] Discharge Plan Visit Data Chief Complaint: Fall Stated Complaint: FALL ED Provider: Anton Pollack Discharge Problem: Syncope, Alcoholism, Alcohol intoxication, Closed fracture of rib of right side, Acute dehydration Patient Disposition: Being Evaluated by Hospitalist Condition: Good Forms Stand Alone Forms: My [facility], Important Visit Information Prescriptions Prescriptions: No Action atorvastatin [Lipitor] 40 mg tablet 40 mg PO HS RF: 0 clonazepam [Klonopin] 0.5 mg tablet 0.5 mg PO HS RF: 0 aspirin [Adult Low Dose Aspirin] 81 mg tablet,delayed release (DR/EC) 81 mg PO QDD RF: 0 biotin 10,000 mcg capsule 10,000 mcg PO QAM RF: 0 furosemide 20 mg tablet 40 mg PO QAM RF: 0 metoprolol succinate 100 mg capsule,sprinkle,ER 24hr 100 mg PO DAILY Qty: 30 RF: 2 ascorbic acid (vitamin C) [Vitamin C] 1,000 mg Tablet 1 g PO QDL RF: 0 cyanocobalamin (vitamin B-12) [Vitamin B-12] 1,000 mcg Tablet 1,000 mcg PO QDL RF: 0 prednisolone acetate 1 % drops,suspension OPR DIRECTED RF: 0 gabapentin 300 mg Capsule 900 mg PO HS RF: 0 calcitriol 0.25 mcg Capsule 0.25 mcg PO 3XWK RF: 0 Centrum Silver 0.4-300-250 mg-mcg-mcg Tablet 1 tab PO QDL RF: 0 calcium citrate-vitamin D3 [Citracal + D Petites] 200 mg calcium -250 unit Tablet 2 tab PO QDD RF: 0 [employer] Colon Health 1.5 billion cell Capsule 1 cap PO BIDM RF: 0 Weber Hair 1 tab PO BIDM RF: 0 Copper Supplement 5 mg PO QDL RF: 0 Turmeric/Curcumin 2 tab PO QDL RF: 0 potassium chloride [Klor-Con 8] 8 mEq tablet extended release 16 meq PO BIDM RF: 0 gabapentin 300 mg capsule 600 mg PO QAM RF: 0 Xarelto 20 mg tablet 20 mg PO HS RF: 0 Referrals Referrals: Jocelynn Mauricio MD [Primary Care Provider] - Discharge Problem: Syncope Qualifiers: Syncope type: unspecified Qualified Code(s): R55 - Syncope and collapse Alcohol intoxication Qualifiers: Complication of substance-induced condition: with unspecified complication Qualified Code(s): F10.929 - Alcohol use, unspecified with intoxication, unspecified Closed fracture of rib of right side Qualifiers: Encounter type: initial encounter Rib fracture type: single rib Qualified Code(s): S22.31XA - Fracture of one rib, right side, initial encounter for closed fracture
[2019-02-05 05:07] LABS: Basophils # (auto) 0.02 K/uL (0-0.2); Basophils % (auto) 0.3 %; Eosinophils # (auto) 0.14 K/uL (0-0.5); Eosinophils % (auto) 2.1 %; Hematocrit (blood only) 33.3 % (37-47); Hemoglobin 11.1 g/dL (12.0-16.0); Immature Granulocytes # (auto) 0.04 K/uL (0.00-0.02); Immature Granulocytes % (auto) 0.6 %; Lymphocytes # (auto) 1.99 K/uL (1.2-3.4); Lymphocytes % (auto) 29.8 %; Mean Corpuscular Hgb Conc 33.3 g/dL (32-36); Mean Corpuscular Volume 95.7 fL (80-100); Mean Platelet Volume 9.6 fL (7.4-10.4); Monocytes # (auto) 0.72 K/uL (0.11-0.59); Monocytes % (auto) 10.8 %; Neutrophils # (auto) 3.76 K/uL (1.4-6.5); Neutrophils % (auto) 56.4 %; Platelet Count 241 K/uL (130-400); RDW Coefficient of Variation 14.2 % (11.5-14.5); RDW Standard Deviation 49.9 fL (36.4-46.3); Red Blood Count 3.48 M/uL (4.2-5.4); White Blood Count 6.67 K/uL (4.8-10.8)
[2019-02-05 05:26] LABS: BUN Creatinine Ratio 34.7 (10-20); Blood Urea Nitrogen 40 mg/dl (7-18); Calcium 9.2 mg/dl (8.5-10.1); Carbon Dioxide 25 mmol/L (21-32); Chloride 104 mmol/L (98-107); Creatinine Clr Calc Pharmacy 39.2 ml/min; Est GFR (Non-African American) 45.7; Glucose 125 mg/dl (70-99); Magnesium 1.9 mg/dl (1.8-2.4); Potassium 3.6 mmol/L (3.5-5.1); Sodium 140 mmol/L (136-145)
[2019-02-05 05:31] LABS: Troponin I < 0.015 ng/ml (0-0.045)
[2019-02-05] MEDS ORDERED: MULTI-VITAMIN INFUSION 10 ML, THIAMINE HCL 100 MG, FOLIC ACID 1 MG in SODIUM CHLORIDE 0... IV SCH (05:45)
[2019-02-05 05:49] LABS: Creatine Kinase 48 U/L (26-192)
--- NOTE | 2019-02-05 06:38 | CT Scan Report ---
CT OF THE CERVICAL SPINE WITHOUT CONTRAST CLINICAL HISTORY: syncope/trauma COMPARISON STUDY: Cervical spine CT March 09, 2018. TECHNIQUE: Helical axial images of the cervical spine were obtained without IV contrast. Sagittal a nd coronal reconstructions were viewed. Automated exposure control was utilized for the study. A do se lowering technique was utilized adhering to the principles of ALARA. FINDINGS: Alignment of the cervical spine is anatomic. Vertebral body heights are maintained. No acut e cervical spine fracture or subluxation is present. There is no prevertebral edema. Facet joints are intact. Moderate multilevel degenerative disc disease and facet arthrosis is noted. Degenerative di sc disease is most pronounced at C3-C4. Thyroid goiter is again noted. 1.3 cm groundglass nodule with in the left lung apex is unchanged since CT of March 09, 2018. This remains indeterminate. IMPRESSION: 1. No acute cervical spine fracture or subluxation. 2. No change in an indeterminate 1.3 cm groundglass nodule within left lung apex since chest [facility] of [facility] 2017. Electronically signed by: Hammad Aranda M.D. 02/05/2019 6:36 AM
--- NOTE | 2019-02-05 06:42 | XRay Report ---
XR ribs RT min 3V w CXR1V CLINICAL HISTORY: right rib pain s/p fall COMPARISON: Chest radiograph March 09, 2018. Chest CT March 09, 2018. FINDINGS: Note is made of postoperative heart is within the sternum and moderate cardiomegaly. There is no pneumothorax or pleural effusion. Mild left midlung opacity favors atelectasis. Note is made o f mildly displaced fractures of the lateral right fifth and sixth ribs. These are age-indeterminate b ut likely subacute to acute. IMPRESSION: 1. No pneumothorax. 2. Mildly displaced fractures of the lateral right fifth and sixth ribs which are age-indeterminate b ut likely acute to subacute. Electronically signed by: Hammad Aranda M.D. 02/05/2019 6:41 AM
--- NOTE | 2019-02-05 07:16 | CT Scan Report ---
CT SCAN OF THE BRAIN WITHOUT IV CONTRAST CLINICAL HISTORY: Syncope. COMPARISON STUDY: CT of the brain dated 03/09/2018. TECHNIQUE: Unenhanced axial CT scan of the brain is performed from the vertex to the skull base. A do se lowering technique was utilized adhering to the principles of ALARA. FINDINGS: Brain parenchyma: There are age-related involutional changes noting moderate confluent subcortical a nd periventricular microangiopathic change. There is no hemorrhage, mass effect, or evidence of acute territorial ischemia by CT criteria. Left cerebellar encephalomalacia is consistent with a remote in farct. Caban-white matter differentiation is preserved. No extra-axial fluid collection is seen. Ventricles, sulci, cisterns: Prominent secondary to involutional change. Intracranial vasculature: There is atherosclerotic calcification of the cavernous carotid and vertebr al arteries.. Calvarium: Unremarkable. Sinuses and mastoids: The visualized paranasal sinuses are clear. The mastoid air cells are well pneu matized. Orbits: The bony orbits are grossly intact. There are bilateral ocular lens implants. IMPRESSION: There is no hemorrhage, mass effect, or evidence of acute territorial ischemia by CT claudia williamson. Electronically signed by: Cipriano Diaz M.D. 02/05/2019 7:14 AM
[2019-02-05] MEDS ORDERED: ONDANSETRON INJ 2 MG/ML 2 ML VIAL IV PRN (08:32)
[2019-02-05] MEDS ORDERED: LIDOCAINE HCL 5% OINT 30 GM TUBE EXT PRN (08:32)
[2019-02-05] MEDS ORDERED: ACETAMINOPHEN 325 MG TAB PO PRN (08:32)
--- NOTE | 2019-02-05 08:42 | History & Physical Report ---
Date of Service February 05, 2019 Assessment & Plan (1) Syncope: -Admit to telemetry -Check 2D echo -Initial troponin was negative, check x1 more set -Question if this is polypharmacy as the patient was using clonazepam, gabapentin, plus alcohol prior to sleep - pt reports did not use narcotic last evening although she has this available in her home from last Rx filled in October. -History of paroxysmal A. fib on Xarelto, concerning for cardiac arrhythmia however EKG reviewed this morning does not show any changes -Hold Xarelto with fall -Consider rhabdomyolysis as patient was on the floor for an unknown amount of time, checking CK level now -NSS at 125 mL/h x 1 day, caution as to not fluid overload as the patient has history of diastolic CHF, check for systolic CHF with use of Lasix for lower extremity edema, last echo was in 2017 and had preserved EF at that time. (2) Frequent falls: - PT/OT consults - Hold xarelto for now - Check echo, consider cardiology consult (3) Closed fracture of rib of right side: -Right lateral 5th and 6th rib fx acute -No other acute fractures identified of the cervical spine or acute findings on head CT -Pain control with lidocaine patch, allow low dose morphine IV with increased pain now, place on tylenol around the clock, caution with possible polypharmacy- encourage incentive spirometry, deep breaths, and flutter to improve aeration -Holding Xarelto -If worsening respiratory status, obtain CT of the chest to rule out hemothorax, acute hemorrhage, intrapulmonary bleed -Currently O2 sats equal 94% on RA and RR=18 (4) Acute dehydration: -Patient notes has dropped 8 to 9 pounds since Lasix increase in October, has not had issues with peripheral edema. -NSS at 125 mL/h x 1 day, monitor for fluid overload, allow p.o. intake -Checking CK (5) Alcohol intoxication: (6) Alcoholism: -Blood alcohol level of 210 upon admission -Chronic, Southern comfort is drink of choice, last drink last evening - Gabapentin etoh withdrawal protocol now, allow 900 mg HS today and 600 mg QAM tomorrow as per home meds. -Need to reinforce cessation with the patient prior to discharge, and is very important that she does not mix alcohol with medications such as benzodiazepine and gabapentin, especially narcotic as she has a RX for this. - Hx of benign essential tremor as noted in her HPI, uses clonazepam at home 0.5 mg at bedtime (7) REM sleep behavior disorder: -Has seen neurology as an outpatient, Dr. Fuentes -Monitor -Was placed on clonazepam for this, continue for now. (8) Paroxysmal atrial fibrillation: -EKG reviewed, currently in afib but rate controlled. -Holding Xarelto in the setting of possible bleed, allow metoprolol succinate 100 mg daily, next dose now (9) Pulmonary hypertension: - History of such, follow on repeat echo to assess - Continue CPAP with ANDREY (10) Opioid use, unspecified, uncomplicated: - PDMP was checked and the last prescription was from 11/05/18 for a 30 day supply of oxycodone. -Check urine drug tox screen (11) Mitral regurgitation: -History of such (12) Chronic diastolic congestive heart failure: -Last echo from 2016, repeat today, assess LVEF, last was noted as preserved -Holding Lasix 40 mg every morning while giving fluids, monitor for volume overload and peripheral edema -Patient notes loss of 8 to 9 pounds of fluid - (13) CAD (coronary artery disease): - Cont ASA 81 mg daily, metoprolol succinate, atorvastatin (14) Gastric bypass status for obesity: - Hx of such, pt admits to early satiety and only consumes small amount of food during entire day - like 1/2 a cheese sandwich - low albumin - recommend boost for nutritional supplement upon discharge (15) Hypertension: - BP stable currently, continue BB (16) Hyperlipemia: - statin therapy (17) Lower back pain: - Chronic, uses tylenol for pain relief at home. (18) Diabetes: -A1C= 6.2 at end of October 2018, no need to recheck -ISS with Accu-Cheks ACHS -H&H/DM diet (19) Vitamin D deficiency: -Continue Calcitrol 0.25 mcg 3x/wk, continue calcium plus vitamin D supplement (20) Osteoarthritis: - noted (21) Anemia: -Hemoglobin 11.1 appears to be around her baseline of 10.5, possibly slightly dehydrated currently, IVS as above -Trend CBC with a.m. labs -No acute signs of bleeding (22) Obstructive sleep apnea syndrome: - Continue CPAP with ANDREY (23) DVT prophylaxis: -Teds, SCDs, holding Xarelto with falls Dispo: Patient from home, lives alone, to assist with discharge planning, PT/OT consults -Likely to remain in the hospital 1-2 days History of Present Illness Primary Care Provider: Jocelynn Mauricio MD This is a 78 yo F with PMhx of HTN, HLD, chronic diastolic CHF, CAD lower extremity edema on diuretic, afib on xarelto, pulmonary HTN, mitral regurg, REM sleep behavior disorder, chronic low back pain, anemia, GERD, DM II, hx of gastric bypass, chronic opiod use, alcoholism who presents to the ER after a fall sustained sometime overnight, as well as an alcohol level of 210 found in the ER this morning. Pt notes she has been having a fall about once every 6 months for 2 years since being diagnosed with the REM sleep disturbance. Pt notes that last evening she had a glass of southern comfort and diet pepsi like she normally does prior to going to sleep in her recliner. She notes that if she is not drowsy enough, then will fill up the cup with ice and another glass of southern comfort, which she did last evening. She notes that she did take all of her evening medications last night, which includes xarelto, gabapentin 900 mg, clonazepam. She reports having chronic pain and has used oxycodone and percocet in the past, but it is unknown if she has any of these medications left over or if she took narcotic last evening. Pt notes she has a video camera in her living room which records activity in both the living room and the kitchen because of her history of falls. On the recording from the night before last, she notes she was apparently up around 2:45 am and was walking in her kitchen and came back to the recliner, but does not recall this at all. She does not recall the event of last night and does not remember falling. She has significant pain over the right side of her ribs currently and that it was improved with pain meds initially but now are wearing off. At home she uses a walker to walk longer distances but not in the house and lives alone. Pt has lateral Right 5th and 6th rib fractures which are new Etoh level of 210 Allergies Allergy/AdvReac Type Severity Reaction Status Date / Time banana Allergy Intermediate HIVES/ITCHI Verified 02/05/19 05:16 NG Iodinated Contrast- Oral and Allergy Intermediate "CONTRAST"- Verified 02/05/19 05:16 IV Dye HIVES/ITCHI NG Home Medications Home Medications Medication Instructions Recorded Confirmed Type aspirin 81 mg tablet,delayed 81 mg PO QDD 02/28/18 02/05/19 History release atorvastatin 40 mg tablet 40 mg PO HS 02/28/18 02/05/19 History biotin 10,000 mcg capsule 10,000 mcg PO QAM cap 02/28/18 02/05/19 History clonazepam 0.5 mg tablet 0.5 mg PO HS tab 02/28/18 02/05/19 History furosemide 20 mg tablet 40 mg PO QAM tab 01/14/19 02/05/19 History metoprolol succinate ER 100 mg 100 mg PO DAILY #30 ea 01/14/19 02/05/19 Rx capsule sprinkle, ext. release 24 hr Weber Hair 1 tab PO BIDM 02/05/19 02/05/19 History Copper Supplement 5 mg PO QDL 02/05/19 02/05/19 History L. gasseri-B. bifidum-B longum 1 cap PO BIDM 02/05/19 02/05/19 History [Mccall' Colon Health] Turmeric/Curcumin 2 tab PO QDL 02/05/19 02/05/19 History ascorbic acid (vitamin C) [Vitamin 1 g PO QDL 02/05/19 02/05/19 History C] calcitriol 0.25 mcg PO 3XWK 02/05/19 02/05/19 History calcium citrate-vitamin D3 2 tab PO QDD 02/05/19 02/05/19 History [Citracal + D Petites] cyanocobalamin (vitamin B-12) 1,000 mcg PO QDL 02/05/19 02/05/19 History [Vitamin B-12] gabapentin 600 mg PO QAM 02/05/19 02/05/19 History gabapentin 900 mg PO HS 02/05/19 02/05/19 History rduxqcpn-pdd-MS-lycopen-lutein 1 tab PO QDL 02/05/19 02/05/19 History [Centrum Silver] potassium chloride [Klor-Con 8] 16 meq PO BIDM 02/05/19 02/05/19 History prednisolone acetate 0 drp OPR DIRECTED 02/05/19 02/05/19 History rivaroxaban [Xarelto] 20 mg PO HS 02/05/19 02/05/19 History Past Med/Surg History Social History Preferred Language: Macedonian Communication Ability: Effective Administrative Asst Required: No Beliefs That Will Affect Care: None marital status: / Current Living Situation: Alone current occupational status: retired Feels Safe at Home: Yes Smoking Status: Former smoker Tobacco Type: cigarettes ; Age Started Using Tobacco: 16 ; Age Quit Using Tobacco: 50 ; packs per day: 1.5 ; Cigarettes Per Day: 30 ; Second Hand Exposure: Yes ; Hx Alcohol Use: Yes Alcohol type: wine Alcohol Intake Frequency: Daily Hx Substance Use: No Childhood Exposure to Second-Hand Smoke: No Dental Care, Regularly: Yes Physical Activity Frequency: Does not Exercise Seatbelt Use: always Review of Systems Review of Systems: Constitutional: No fever, sweats or chills Eyes: No diplopia, no worsening or blurred vision ENT: normal hearing, no trouble swallowing Respiratory: No cough, sputum, dyspnea at rest or on exertion Cardiovascular: R sided rib pain over area of fracture, no substernal chest pain, tightness or palpitations Abdomen: No pain, nausea, vomiting, diarrhea or constipation Musculoskeletal: No joint pain, calf pain, swelling Neurologic: No weakness, numbness/tingling, + balance problems, + frequent falls, + uses walker at baseline Psychiatric: No anxiety or depression Skin: No rash or itch Physical Exam Physical Exam: General: awake, alert, no apparent distress Head: Normocephalic, atraumatic ENT: PERRL, EOMI, no pharyngeal exudate, mucous membranes moist Chest: Clear to auscultation, on room air, no adventitious breath sounds, + ecchymosis developing over the Left shoulder blad region, + small areas of ecchymosis over the Right lateral rib cage. Cardiac: +irregular, rate controlled, faint KANWAL, no JVD, normal peripheral pulses, good capillary refill Abdominal: NABS x 4 quadrants, soft, nontender to palpation, no rebound, guarding or tenderness Extremities: Normal inspection, no peripheral edema or erythema, calfs nontender to palpation Psych: Normal mood and affect Neuro: AAO x 3, no motor deficits, speech is clear Results & Data Vital Signs (Past 12 Hours) Vital Signs Temp Pulse Pulse Resp BP BP Pulse Ox 02/05/19 08:13 79 18 148/106 H 94 02/05/19 07:11 75 18 160/96 H 100 02/05/19 05:44 85 18 159/96 H 99 02/05/19 04:43 36.4 C L 77 20 164/89 H 97 Diagnostic Findings XR ribs RT min 3V w CXR1V CLINICAL HISTORY: right rib pain s/p fall COMPARISON: Chest radiograph March 09, 2018. Chest CT March 09, 2018. FINDINGS: Note is made of postoperative heart is within the sternum and moderate cardiomegaly. There is no pneumothorax or pleural effusion. Mild left midlung opacity favors atelectasis. Note is made of mildly displaced fractures of the lateral right fifth and sixth ribs. These are age-indeterminate but likely subacute to acute. IMPRESSION: 1. No pneumothorax. 2. Mildly displaced fractures of the lateral right fifth and sixth ribs which are age-indeterminate but likely acute to subacute. CT SCAN OF THE BRAIN WITHOUT IV CONTRAST CLINICAL HISTORY: Syncope. COMPARISON STUDY: CT of the brain dated 03/09/2018. TECHNIQUE: Unenhanced axial CT scan of the brain is performed from the vertex to the skull base. A dose lowering technique was utilized adhering to the principles of ALARA. FINDINGS: Brain parenchyma: There are age-related involutional changes noting moderate confluent subcortical and periventricular microangiopathic change. There is no hemorrhage, mass effect, or evidence of acute territorial ischemia by CT criteria. Left cerebellar encephalomalacia is consistent with a remote infarct. Caban-white matter differentiation is preserved. No extra-axial fluid collection is seen. Ventricles, sulci, cisterns: Prominent secondary to involutional change. Intracranial vasculature: There is atherosclerotic calcification of the cavernous carotid and vertebral arteries.. Calvarium: Unremarkable. Sinuses and mastoids: The visualized paranasal sinuses are clear. The mastoid air cells are well pneumatized. Orbits: The bony orbits are grossly intact. There are bilateral ocular lens implants. IMPRESSION: There is no hemorrhage, mass effect, or evidence of acute territorial ischemia by CT criteria. CT OF THE CERVICAL SPINE WITHOUT CONTRAST CLINICAL HISTORY: syncope/trauma COMPARISON STUDY: Cervical spine CT March 09, 2018. TECHNIQUE: Helical axial images of the cervical spine were obtained without IV contrast. Sagittal and coronal reconstructions were viewed. Automated exposure control was utilized for the study. A dose lowering technique was utilized adhering to the principles of ALARA. FINDINGS: Alignment of the cervical spine is anatomic. Vertebral body heights are maintained. No acute cervical spine fracture or subluxation is present. There is no prevertebral edema. Facet joints are intact. Moderate multilevel degenerative disc disease and facet arthrosis is noted. Degenerative disc disease is most pronounced at C3-C4. Thyroid goiter is again noted. 1.3 cm groundglass nodule within the left lung apex is unchanged since CT of March 09, 2018. This remains indeterminate. IMPRESSION: 1. No acute cervical spine fracture or subluxation. 2. No change in an indeterminate 1.3 cm groundglass nodule within left lung apex since chest CT of March 09, 2018. ECG Additional Comments: 05-FEB-2019 04:57:26 [facility]-EDSTAT ROUTINE RETRIEVAL Atrial fibrillation Non-specific intra-ventricular conduction block Possible Inferior i nfarct , age undetermined Abnormal ECG When compared with ECG of 09-MAR-2018 18:42, Atrial fibrillation has replaced Sinus rhythm QRS duration has increased Borderline criteria for Inferior infarct are now Present T wave inversion now evident in Anterior leads 25mm/s 10mm/mV 150Hz 9.0.9 12SL 241 MICHEL: 15 Referred by: REFERRED SELF Unconfirmed Vent. rate 72 BPM NV interval * ms QRS duration 146 ms QT/QTc 430/470 ms P-R-T axes * 18 41 Code Status & VTE Plan Code Status Full code-discussed with the patient at bedside Supervising Physician Co-Signing Physician Notes Attending Attestation and Admission Note: Pt seen/examined, chart reviewed, care plan d/w NATHALIA Bar. I agree w/ the solares components of her admission documentation. 78yo female with numerous medical problems including PAF, REM sleep disorder, CKD stage 3, chronic diastolic CHF, CAD s/p VA, and chronic low back pain who presented after a fall at home. This was in the context of drinking liquor last evening. She drinks etoh on regular, daily basis. She has frequent falls, and fell about 1 week ago onto her right knee. She has had mild discomfort & bruises over right knee since. The fall precipitating this hospital stay was in the middle of the night and in the setting of her REM sleep disorder. Because of the sleep disorder she often gets out of bed and moves about in the middle of the night but she is not awake when this happens. This is what happened last evening and thus she cannot tell me the exact details of what led to her fall. After being moved from the ER to the tele unit she noted severe right hip and posterior right leg pain. This is now her largest complaint. It is so severe that she cannot weight bear on the right leg. She denies significant right groin or anterior right leg pain. PMH, PSH, allergies, meds, sochx, famhx, ros - reviewed gen - NAD, a/o x 3, no signs of etoh withdrawal mouth - MMM neck - no JVD heart - irregular, s1, s2 lungs - CTA b/l abd - soft NT ND BS+ musculo - right hip - mild tenderness to palpation over lateral right hip and anteriorly over the inguinal region/groin; with passive internal/external rotation she has no pain; with active flexion she has pain over the hip; the hip and thigh are grossly normal without significant edema; right knee - mild bruises noted; TKR scar noted; mild effusion noted; no gross abnormality otherwise; l-spine - tender to palpation over lower lumbar segments ext - <1+ edema b/l labs, imaging studies reviewed EKG - a. fib A/P: 1. falls with resulting right hip and pelvic pain 2. right rib fractures x 2 2nd to fall; rib fx's are displaced mildly 3. alcohol abuse w/ intoxication 4. REM sleep disorder 5. CKD stage 3 6. h/o PAF; in a.fib with good rate control at time of admission 7. h/o TKR on right with trauma to right knee from previous fall right hip, pelvic, and right knee x-rays NOW pain control for musculoskeletal complaints; add lidoderm; add heat etoh withdrawal precautions; suspect this is playing a role in her falls consider thoracic consult since rib fx's are displaced labs am poor candidate for anticoagulation given her frequent falls; agree w/ holding such for now Marcus Mendoza MD PG Care Time/CCT Total # of Minutes Spent Total Time Spent with Patient: Total time spent is greater than 50% in coordination of care (as documented) at patient's floor/unit and/or counseling patient: (1) Closed fracture of rib of right side Encounter type: initial encounter Rib fracture type: single rib Qualified Code(s): S22.31XA - Fracture of one rib, right side, initial encounter for closed fracture (2) Alcohol intoxication Complication of substance-induced condition: with unspecified complication Qualified Code(s): F10.929 - Alcohol use, unspecified with intoxication, unspecified (3) Syncope Syncope type: unspecified Qualified Code(s): R55 - Syncope and collapse
[2019-02-05] MEDS ORDERED: MoRPHine SULFATE 4 MG/ML 1 ML CARP\\VIAL IV STA (09:22)
[2019-02-05] MEDS ORDERED: NON-FORMULARY MEDICATION (Metoprolol Succinate 100 MG) PO SCH (09:27)
[2019-02-05] MEDS ORDERED: METOPROLOL SUCC 50MG EXT REL TAB PO SCH (09:45)
[2019-02-05] MEDS ORDERED: CARBOHYDRATES FOR HYPOGLYCEMIA PO PRN (10:45)
[2019-02-05] MEDS ORDERED: GLUCOSE 40% GEL 15 GM TUBE PO PRN (10:45)
[2019-02-05] MEDS ORDERED: GABAPENTIN 800MG ALCOHOL WITHDRAWAL LOAD PO SCH (10:45)
[2019-02-05] MEDS ORDERED: GLUCAGON FOR INJ 1 MG VIAL SQ PRN (10:45)
[2019-02-05] MEDS ORDERED: DEXTROSE 50% 50 ML SYRINGE IV PRN (10:45)
[2019-02-05] MEDS ORDERED: GLUCOSE 10 TABS/TUBE PO PRN (10:45)
[2019-02-05] MEDS ORDERED: GABAPENTIN 400 MG CAP PO ONE (12:00)
[2019-02-05] MEDS: ACETAMINOPHEN 500 MG TAB PO SCH ×2 (12:24→17:20)
[2019-02-05] MEDS: SODIUM CHLORIDE 0.9% 1000ML 1,000 ML IV SCH ×2 (12:30→19:53)
[2019-02-05] MEDS: INSULIN ASPART 100 UNITS/ML 3 ML PEN SC SCH ×3 (13:21→21:38)
[2019-02-05] MEDS: chlordiazePOXIDE HCl 25 MG CAP PO SCH ×2 (13:29→21:40)
[2019-02-05] MEDS: MoRPHine SULFATE 4 MG/ML 1 ML CARP\\VIAL IV PRN (14:53)
--- NOTE | 2019-02-05 17:05 | XRay Report ---
XR knee RT 2V routine CLINICAL HISTORY: Right knee pain status post trauma COMPARISON: 03/09/2018 DISCUSSION: Postsurgical changes of a total right knee arthroplasty. No acute fractures or dislocatio ns are visualized. There is a corticated bony density located inferior to the patellar pole. This was present on the prior study. There are extensive vascular calcifications. IMPRESSION: 1. Postsurgical changes of a total right knee arthroplasty 2. No acute fractures or dislocations identified Electronically signed by: David Underwood M.D. 02/05/2019 5:04 PM
--- NOTE | 2019-02-05 17:06 | XRay Report ---
XR hip RT 2-3V w pelvis CLINICAL HISTORY: fall, hip pain, pelvic pain; eval Fx COMPARISON: None. DISCUSSION: General degenerative change. No evidence for fracture or dislocation. No evidence for arleth tabular protrusion. There is no evidence for soft tissue swelling. IMPRESSION: Considerable degenerative change. No acute process. The above report was generated using voice recognition software. It may contain grammatical, syntax or spelling errors. Electronically signed by: Byron Burrell M.D. 02/05/2019 5:05 PM
[2019-02-05] MEDS: CALCIUM 600MG + VIT D 400 IU TAB PO SCH (17:19)
[2019-02-05] MEDS: POTASSIUM CHLORIDE 10 MEQ TABCR PO SCH (17:20)
[2019-02-05] MEDS: ASPIRIN 81 MG ECTAB PO SCH (17:20)
[2019-02-05] MEDS ORDERED: GABAPENTIN 400 MG CAP PO SCH (18:00)
[2019-02-05] MEDS ORDERED: LIDOCAINE 5% 1 PATCH TD SCH (19:15)
[2019-02-05 19:41] LABS: Appearance Urine Cloudy (Clear); Bacteria Urine Automated Negative (Negative); Bilirubin Urine Negative (Negative); Blood Urine Negative (Negative); Color Urine Dark Yellow; Epithelial Cell Urine Auto >30 /lpf (0-5); Glucose Urine UA Negative (Negative); Ketones Urine Negative (Negative); Leukocyte Esterase Urine 2+ (Negative); Nitrite Urine Negative (Negative); Protein Urine Negative (Negative); RBC Urine Automated 0-4 /hpf (0-4); Specific Gravity Urine 1.021 (1.000-1.030); Urobilinogen Urine Negative (Negative); WBC Urine Automated >30 /hpf (0-5)
[2019-02-05 20:01] LABS: Amphetamines+Metham, Urine Neg (Neg); Barbiturates, Urine Neg (Neg); Benzodiazepine, Urine Neg (Neg); Cocaine, Urine Neg (Neg); MDMA (Ecstacy), Urine Neg (Neg); Methadone, Urine Neg (Neg); Opiate, Urine Pos (Neg); Phencyclidine, Urine Neg (Neg)
[2019-02-05] MEDS ORDERED: clonazePAM 0.5 MG TAB PO SCH (21:00)
[2019-02-05] MEDS: LIDOCAINE 5% 1 PATCH TD SCH (21:36)
[2019-02-05] MEDS: GABAPENTIN 300 MG CAP PO SCH (21:37)
[2019-02-05] MEDS: ATORVASTATIN 40 MG TAB PO SCH (21:37)
[2019-02-06] MEDS: ACETAMINOPHEN 500 MG TAB PO SCH ×3 (01:31→17:08)
[2019-02-06] MEDS: SODIUM CHLORIDE 0.9% 1000ML 1,000 ML IV SCH (03:54)
[2019-02-06 06:17] LABS: Hematocrit (blood only) 27.4 % (37-47); Hemoglobin 8.7 g/dL (12.0-16.0); Mean Corpuscular Hgb Conc 31.8 g/dL (32-36); Mean Corpuscular Volume 97.9 fL (80-100); Mean Platelet Volume 10.3 fL (7.4-10.4); Platelet Count 217 K/uL (130-400); RDW Coefficient of Variation 14.5 % (11.5-14.5); RDW Standard Deviation 51.9 fL (36.4-46.3); White Blood Count 7.17 K/uL (4.8-10.8)
[2019-02-06 06:57] LABS: Albumin Globulin Ratio 0.8 (0.9-2); Albumin Level 2.6 gm/dl (3.4-5.0); Calcium 7.9 mg/dl (8.5-10.1); Creatinine Clr Calc Pharmacy 34.9 ml/min; Est GFR (African American) 45.2; Globulin 3.3 gm/dl (2.5-4.0); Potassium 4.5 mmol/L (3.5-5.1); Total Protein 5.9 gm/dl (6.4-8.2)
[2019-02-06] MEDS ORDERED: GABAPENTIN 400 MG CAP PO SCH (08:00)
[2019-02-06] MEDS: MoRPHine SULFATE 4 MG/ML 1 ML CARP\\VIAL IV PRN (08:12)
[2019-02-06] MEDS: INSULIN ASPART 100 UNITS/ML 3 ML PEN SC SCH ×4 (08:42→22:24)
[2019-02-06] MEDS: POTASSIUM CHLORIDE 10 MEQ TABCR PO SCH ×2 (08:48→17:08)
[2019-02-06] MEDS: FOLIC ACID 400 MCG TAB PO SCH (08:49)
[2019-02-06] MEDS: SACCHAROMYCES BOULARDII 250 MG CAP PO SCH (08:49)
[2019-02-06] MEDS: MULTIVITAMIN TAB PO SCH (08:49)
[2019-02-06] MEDS: GABAPENTIN 300 MG CAP PO SCH ×2 (08:50→20:56)
[2019-02-06] MEDS: chlordiazePOXIDE HCl 25 MG CAP PO SCH ×2 (08:52→20:53)
[2019-02-06] MEDS ORDERED: THIAMINE HCL 100 MG TAB PO SCH (09:00)
[2019-02-06 14:13] LABS: Hematocrit (blood only) 26.7 % (37-47); Hemoglobin 8.7 g/dL (12.0-16.0)
--- NOTE | 2019-02-06 16:16 | CT Scan Report ---
CT pelvis wo con CLINICAL HISTORY: 78 years-old Female presenting with trauma - eval for fracture, hematoma, etc. TECHNIQUE: Multidetector CT of the pelvis was performed without the use of intravenous contrast. IV c ontrast: None. One or more dose lowering techniques were used consistent with the principles of ALARA (as low as reasonably achievable), including automatic exposure control, mA or kV adjustment to vinicio vidual patient size, and/or use of iterative reconstruction. COMPARISON: Plain radiographs from the previous day. CT DOSE (mGy.cm): The estimated cumulative dose is 920.00. 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 Sacroiliac joints, hip joints, and pubic symphysis congruent. Degenerative changes of the sacroiliac joints. Advanced degenerative changes of the lower lumbar spine. The sacrum is intact. Bony pelvis in tact. Osteophytosis of the hip joints with mild joint space loss bilaterally. Femoral necks intact. N o acute fracture or subluxation. Extensive atherosclerosis. Degenerated fibroids noted in the uterus. Calcification within the left ov nitish. Postsurgical changes of the infraumbilical abdominal wall suspected. No gross lymphadenopathy. N o free fluid in the pelvis. Diverticulosis of the sigmoid and distal descending colon without wall th ickening or pericolonic inflammatory change. Intramuscular hematoma noted within the right gluteus muscle complex posterior to the intertrochanter ic region of the right femur. The hematoma is multilobular and difficult to measure but has a maximum diameter of 6 cm (series 3 image 79). This does not appear to extend inferior to the right femoral m etaphysis. IMPRESSION: 1. Intramuscular hematoma within the right gluteus muscle complex. 2. No acute osseous injury. 3. Degenerative changes of the lower lumbar spine, SI joints, and hip joints. Electronically signed by: Rommel oTng M.D. 02/06/2019 4:14 PM
[2019-02-06] MEDS ORDERED: CALCITRIOL 0.25 MCG CAPSULE PO SCH (16:30)
--- NOTE | 2019-02-06 16:37 | XRay Report ---
XR chest 2V routine CLINICAL HISTORY: right sided rib Fx; eval effusion, pneumo COMPARISON STUDY: 02/05/2019 FINDINGS: There are postsurgical changes of a midline sternotomy. The heart remains mildly enlarged. There is no lobar consolidation. There are subsegmental atelectatic changes in the left. There are no significant pleural effusions. There is no pneumothorax. There is an old vertebral body compression fractures thoracolumbar junction. The recently described right rib fractures are not visualized the c urrent study.[There is deviation of the trachea at the thoracic inlet to the right of midline. This s uggests a thoracic inlet mass is a thyroid goiter IMPRESSION: 1. Deviation of the trachea consistent with a left-sided thoracic inlet mass likely a thyroid goiter 2. No evidence of pneumothorax 3. Mild cardiomegaly. No evidence of focal pulmonary consolidation Electronically signed by: David Underwood M.D. 02/06/2019 4:35 PM
--- NOTE | 2019-02-06 16:39 | XRay Report ---
XR lumbar spine 2-3V CLINICAL HISTORY: Lumbar spine pain status post trauma COMPARISON STUDY: CT scan performed February 2018 FINDINGS: The bones are osteopenic. There is a moderate L1 compression fracture. This appears old. Th ere are no traumatic subluxations. There are multilevel degenerative changes. There is no pathologic bowel dilatation. IMPRESSION: 1. Old L1 compression fracture 2. No acute fractures or traumatic subluxations identified Electronically signed by: David Underwood M.D. 02/06/2019 4:37 PM
--- NOTE | 2019-02-06 16:41 | Hospitalist Progress Note ---
Date of Service February 06, 2019 Assessment & Plan (1) Acute blood loss anemia: Hemoglobin with decrease of 2+ grams since admission. Repeat H/H later in the day today were stable fortunately. Pelvic CT with right buttock hematoma. Suspect this is the cause of the acute blood loss anemia. HOLD XARELTO DUE TO THE CT findings. Repeat H/H am. (2) Traumatic hematoma of buttock: 2nd to fall in setting of xarelto use. see above. pain control. heat. hold xarelto for now. (3) Closed fracture of rib of right side: Right lateral 5th and 6th rib fx's -- mildly displaced. I consulted Dr Faye who will follow these. Fortunately no complicating hemorrhagic pleural effusion or pneumothorax. Cont lidoderm patches, pain meds, heat, etc (4) Syncope: Potentially due to polypharmacy as the patient was using clonazepam, gabapentin, and alcohol prior to sleep. Cannot rule out rapid a.fib leading to her event. PT/OT. Needs rehab. (5) Accidental overdose: combination of klonipin, gabapentin, alcohol - leading to fall in setting of REM sleep disorder. ideally should NOT use benzos, alcohol. will juvenile counselor. (6) Frequent falls: Hold xarelto for now see discussion above (7) Acute dehydration: resolved stop IV fluids (8) Alcohol intoxication: resolved juvenile counselor to not use alcohol (9) Alcoholism: increase thiamine to 200mg BID no signs/symptoms of etoh withdrawal remains on librium 25mg BID and tolerating such would taper in 2 days or so if not having withdrawal symptoms (10) REM sleep behavior disorder: Has seen neurology as an outpatient for this Tends to sleep walk Should not live alone given her frequent falls and this condition (11) Paroxysmal atrial fibrillation: Now with sustained a.fib but rates controlled Resume BB Holding xarelto due to acute blood loss anemia and hematoma in right buttock (12) Pulmonary hypertension: noted (13) Chronic diastolic congestive heart failure: compensated on exam today stop IV fluids resume BB takes lasix usually - consider resuming tomorrow perhaps at lower dose of 20mg/day - (14) CAD (coronary artery disease): Cont ASA 81 mg daily, metoprolol succinate, atorvastatin (need to resume BB tomorrow) NO ischemic sx's at this time (15) Gastric bypass status for obesity: at high risk of PUD given her etoh use and bypass status (16) Hypertension: controlled (17) Hyperlipemia: statin (18) Lower back pain: acute/chronic check lspine x-rays -- r/o compression fx due to falls (19) Diabetes: A1C= 6.2% October 2018 controlled (20) Obstructive sleep apnea syndrome: Continue CPAP (21) DVT prophylaxis: SCDs holding Xarelto as noted above PT/OT both advising rehab I discussed this w/ her today She is agreeable appreciate case management assistance Subjective cont with right buttock, right lateral hip pain however SHE IS ABLE to bear weight on right leg today and ambulate having rib pain on right eating ok no new areas of pain tele with ongoing a.fib asks about how long she will be in hospital Review of Systems Constitutional: no fever and no chills Respiratory: + pain on inspiration; no dyspnea Cardiovascular: as per Subjective / HPI and + chest pain; no orthopnea and no paroxysmal nocturnal dyspnea Gastrointestinal: no abdominal pain, no nausea and no vomiting Physical Exam Constitutional: + obese; no acute distress and no altered mental status looks better than yesterday ENMT: external ear and nose normal, oropharynx normal Respiratory: normal respiratory effort, lungs clear to auscultation Cardiovascular: Rate/Rhythm: regular rate and + irregularly irregular Heart Sounds: normal S1 and normal S2; no murmur Vessels: posterior tibial pulses present and dorsalis pedis pulses present; no JVD Gastrointestinal (Abdomen): normal bowel sounds, soft, nontender, no hepatosplenomegaly Musculoskeletal: passive internal/external rotation of right hip causes mild discomfort but improved from yesterday; able to actively flex hip on her own today w/o pain. tender over right trochanteric bursal region w/ palpation. no gross abnormality of right thigh. tender along l-spine segments -- less tenderness than yesterday. Neurologic: no focal motor deficits strength 5/5 x both legs -- all muscle groups tested Psychiatric: A+Ox3, euthymic affect Results & Data Vital Signs (Past 12 Hours) Vital Signs Temp Pulse Pulse Resp BP Pulse Ox Pulse Ox 02/06/19 16:26 90 02/06/19 15:20 36.7 C 86 16 128/68 96 02/06/19 12:00 36.8 C 102 H 16 103/67 97 02/06/19 10:31 99 02/06/19 08:00 81 02/06/19 07:53 37 C 82 16 145/78 H 97 97 PG Care Time/CCT Total # of Minutes Spent Total Time Spent with Patient: Total time spent is greater than 50% in coordination of care (as documented) at patient's floor/unit and/or counseling patient: (1) Closed fracture of rib of right side Encounter type: initial encounter Rib fracture type: single rib Qualified Code(s): S22.31XA - Fracture of one rib, right side, initial encounter for closed fracture (2) Lower back pain Chronicity: chronic Back pain laterality: unspecified Sciatica presence: without sciatica Qualified Code(s): M54.5 - Low back pain; G89.29 - Other chronic pain (3) Diabetes Diabetes mellitus type: type 2 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 transplanted heart: [place] heart Associated angina: without angina Qualified Code(s): I25.10 - Atherosclerotic heart disease of [place] coronary artery without angina pectoris (5) Alcohol intoxication Complication of substance-induced condition: with unspecified complication Qualified Code(s): F10.929 - Alcohol use, unspecified with intoxication, unspecified (6) Hyperlipemia Hyperlipidemia type: mixed hyperlipidemia Qualified Code(s): E78.2 - Mixed hyperlipidemia (7) Syncope Syncope type: unspecified Qualified Code(s): R55 - Syncope and collapse (8) Hypertension Hypertension type: essential hypertension Qualified Code(s): I10 - Essential (primary) hypertension (9) Traumatic hematoma of buttock Encounter type: initial encounter Qualified Code(s): S30.0XXA - Contusion of lower back and pelvis, initial encounter (10) Accidental overdose Encounter type: subsequent encounter Qualified Code(s): T50.901D - Poisoning by unspecified drugs, medicaments and biological substances, accidental (unintentional), subsequent encounter
[2019-02-06] MEDS: CALCIUM 600MG + VIT D 400 IU TAB PO SCH (17:07)
[2019-02-06] MEDS: ASPIRIN 81 MG ECTAB PO SCH (17:07)
[2019-02-06] MEDS: LIDOCAINE 5% 1 PATCH TD SCH (20:54)
[2019-02-06] MEDS: ATORVASTATIN 40 MG TAB PO SCH (20:56)
[2019-02-06] MEDS: THIAMINE HCL 100 MG TAB PO SCH (21:10)
--- NOTE | 2019-02-07 00:19 | Consultation Report ---
DATE OF CONSULTATION: 02/06/2019 REASON FOR CONSULTATION: Rib fractures. HISTORY OF PRESENT ILLNESS: This is a very pleasant 78-year-old female who I evaluated earlier today at the request of Dr. Mendoza. The patient says that she lives alone and presented to the Emergency Department yesterday after having a fall sometime during the past 24 hours. I questioned the patient about the fall and that she said that she does not remember falling, but all she remembers is waking up on the floor. With the aid of her Apple watch, she was able to summon 911 and she presented to the Emergency Department. Upon arrival to the Emergency Department, the patient did have a lab evaluation performed where her white blood cell count and platelet count noted to be normal. Her hemoglobin and hematocrit are 11.1 and 33.3. It is noteworthy to mention that her hemoglobin has since dropped to 8.7 and 26.7. Coagulation studies were not performed. The patient did have a chemistry profile where sodium and potassium were noted to be within normal range. She was also noted to have a BUN and creatinine of 36 and 1.3. She was also noted to have an elevated alcohol level. Imaging studies were undertaken where the patient had x-rays of her right hip where no fractures were noted. A knee x-ray on the right side was noted and no fractures were noted. She had a cervical spine CT scan which showed no acute cervical fractures or subluxations. There is a 1.3 cm ground-glass nodule in the left apex. This appeared to be unchanged when compared to CT scan from February of 2018. CT scan of her head was performed that showed no hemorrhage, mass effect or acute ischemia or skull fractures and the patient had a rib and chest x-ray that showed no pneumothorax. Rib fractures of the right 5th and 6th ribs which were mildly displaced were noted. Interpreting radiologist felt that these may have been subacute. No pleural effusion was noted. I visited with the patient at her bedside as stated above. The patient notes that over the past year she has fallen in her home many times. Prior to falling this time, again she could not recollect anything and is unsure if she passed out. At the time of my exam, the patient denied any fever, shakes, chills or headache. She denied any diplopia. She denies any tinnitus or epistaxis. She denies any sore throat or neck pain. She denies any chest pain. She says when she takes very deep inspirations, she has some slight discomfort on the right side. She is not short of breath. She denies nausea, vomiting, or abdominal pain. No myalgias are noted. She also denies any dysuria. PAST MEDICAL HISTORY: Includes the followin. Diastolic CHF. 2. Hypertension. 3. Hyperlipidemia. 4. Coronary artery disease. 5. Chronic lower extremity edema. 6. Atrial fibrillation. 7. Pulmonary hypertension. 8. Mitral regurgitation. 9. History of alcoholism. 10. Diabetes. 11. GERD. 12. Chronic back pain. 13. Sleep behavior disorder. PAST SURGICAL HISTORY: Includes gastric bypass. ALLERGIES: INCLUDE BANANAS AND IV CONTRAST. CURRENT MEDICATIONS: Include: 1. Tylenol 1000 mg every 8 hours. 2. Lipitor 40 mg daily. 3. Calcitriol 0.25 mg on Monday, Monday, Monday. 4. Multivitamin daily. 5. Neurontin 900 mg at bedtime. 6. Aspirin 81 mg daily. 7. Potassium chloride 20 mEq twice daily. 8. Neurontin 600 mg in the morning. 9. Sliding scale insulin. 10. Florastor 250 mg daily. 11. Folic acid 400 mcg daily. 12. Multivitamin daily. 13. Thiamine 100 mg daily. 14. Librium 25 mg twice daily. 15. Lidoderm patch. It is noteworthy to mention that as an outpatient, the patient does take Xarelto 20 mg daily due to history of atrial fibrillation. SOCIAL HISTORY: The patient smoked from ages 16 to 50, 1.5 packs of cigarettes per day. She does have reported alcohol use. FAMILY HISTORY: Negative for premature coronary artery disease. REVIEW OF SYSTEMS: As noted above. PHYSICAL EXAMINATION: VITAL SIGNS: Blood pressure is 128/68, pulse 86 and regular, respirations are 16 and unlabored. Temperature is afebrile with a temperature of 36.7, pulse ox 96% on room air. GENERAL: She is alert. She is oriented x3. She is in no distress. HEENT: There are no signs of head trauma. Eyes: She wears corrective lenses. Pupils equal, round react to light and accommodation. Her extraocular motions are intact. Ears: Auditory acuity is grossly intact. Nose: There is no evidence of nasal trauma. Her mouth has moist mucous membranes. NECK: Supple without tracheal shift, no stridor is noted. CARDIOVASCULAR: Revealed an irregular rate and rhythm. LUNGS: Revealed slightly decreased breath sounds at the bases. She was not using accessory muscles to aid in respirations. Deep inspiration did cause some slight discomfort. Her chest wall was examined. There are no crepitus noted in the soft tissue. There is no pain with palpation of her spine. There is some pain with palpation on the right posterolateral aspect of the right chest wall. ABDOMEN: Soft and nontender. EXTREMITIES: Revealed the patient had approximately 1-2+ lower extremity edema. NEUROLOGIC: Revealed cranial nerves II-XII are grossly intact. She could follow simple commands and move all 4 extremities without noted focal deficits and she was alert and oriented x3. IMPRESSION: A 78-year-old female status post fall with resultant rib fractures. PLAN: I discussed with the patient our concerns, concerning her rib fractures. Fortunately, she did not have any pleural effusion or pneumothorax noted on imaging at time of admission. I told her that we would follow serial chest x-rays as she did take a blood thinner to ensure that she does not have a developing pleural effusion. I also discussed with her the importance of pulmonary toilet, incentive spirometry, so she does not get a pneumonia. She does have an incentive spirometer at bedside and will be using it. I would recommend we continue pain control measures as ordered and this does seem to be effective at this time. I would recommend ambulating as able. Did discuss with the patient that we will continue to follow her along while she is in the hospital and at time of discharge. We will have her follow up in our office in 1-2 weeks from discharge with a chest x-ray to ensure she does not have any developing pleural effusion or other concerning pathology.
[2019-02-07] MEDS: ACETAMINOPHEN 500 MG TAB PO SCH ×3 (01:32→15:42)
[2019-02-07 06:22] LABS: Hematocrit (blood only) 26.3 % (37-47); Hemoglobin 8.5 g/dL (12.0-16.0); Mean Corpuscular Hgb Conc 32.3 g/dL (32-36); Mean Corpuscular Volume 98.5 fL (80-100); Mean Platelet Volume 10.2 fL (7.4-10.4); Platelet Count 218 K/uL (130-400); RDW Coefficient of Variation 14.5 % (11.5-14.5); RDW Standard Deviation 51.9 fL (36.4-46.3); Red Blood Count 2.67 M/uL (4.2-5.4); White Blood Count 8.12 K/uL (4.8-10.8)
[2019-02-07 06:56] LABS: BUN Creatinine Ratio 28.4 (10-20); Calcium 8.3 mg/dl (8.5-10.1); Creatinine Clr Calc Pharmacy 36.5 ml/min; Est GFR (African American) 46.5; Est GFR (Non-African American) 40.1; Potassium 4.6 mmol/L (3.5-5.1)
[2019-02-07] MEDS: POTASSIUM CHLORIDE 10 MEQ TABCR PO SCH ×2 (08:14→17:35)
[2019-02-07] MEDS: SACCHAROMYCES BOULARDII 250 MG CAP PO SCH (08:15)
[2019-02-07] MEDS: THIAMINE HCL 100 MG TAB PO SCH ×2 (08:15→20:51)
[2019-02-07] MEDS: FOLIC ACID 400 MCG TAB PO SCH (08:15)
[2019-02-07] MEDS: MULTIVITAMIN TAB PO SCH (08:16)
[2019-02-07] MEDS: GABAPENTIN 300 MG CAP PO SCH ×2 (08:16→20:47)
[2019-02-07] MEDS: chlordiazePOXIDE HCl 25 MG CAP PO SCH ×2 (08:17→20:45)
[2019-02-07] MEDS: INSULIN ASPART 100 UNITS/ML 3 ML PEN SC SCH ×4 (08:17→21:06)
[2019-02-07] MEDS ORDERED: GABAPENTIN 400 MG CAP PO SCH (12:00)
--- NOTE | 2019-02-07 13:51 | Progress Note ---
DATE: 02/07/2019 Ms. Quezada was seen today. She is eating breakfast. She appears comfortable on room air. I was impressed with her chest x-ray. She has very little in the way of fluid and no pneumothorax or even evidence of pulmonary contusion. At this point, I would recommend that she have pain control. We will check serial x-rays on her every couple of days. I think she is going to recover from this without incident.
[2019-02-07] MEDS: METOPROLOL TARTRATE 100 MG TAB PO SCH ×2 (17:33→20:45)
[2019-02-07] MEDS: ASPIRIN 81 MG ECTAB PO SCH (17:35)
[2019-02-07] MEDS: CALCIUM 600MG + VIT D 400 IU TAB PO SCH (17:35)
[2019-02-07] MEDS: ATORVASTATIN 40 MG TAB PO SCH (20:47)
[2019-02-07] MEDS: LIDOCAINE 5% 1 PATCH TD SCH (20:49)
--- NOTE | 2019-02-07 21:08 | Hospitalist Progress Note ---
Date of Service February 07, 2019 Assessment & Plan (1) Acute blood loss anemia: Hemoglobin with decrease of 2+ grams since admission. Pelvic CT with right buttock hematoma. Likely cause of acute blood loss anemia. HOLDING XARELTO DUE TO THE CT findings and drop in H/H. Fortunately today's H/H are stable. Will need Fe at d/c. CBC am. (2) Traumatic hematoma of buttock: 2nd to fall in setting of xarelto use. see above. pain control. heat. hold xarelto for now. (3) Closed fracture of rib of right side: Right lateral 5th and 6th rib fx's -- mildly displaced. Appreciate Dr Faye's consult. No effusion or pneumothorax. Cont lidoderm patches, pain meds, heat, etc (4) Syncope: Potentially due to polypharmacy as the patient was using clonazepam, gabap entin, and alcohol prior to sleep. Cannot rule out rapid a.fib/flutter leading to her event. PT/OT. Borderline needing rehab. (5) Accidental overdose: combination of klonipin, gabapentin, alcohol - leading to fall in setting of REM sleep disorder. ideally should NOT use benzos, alcohol. counseled. (6) Frequent falls: Holding xarelto for now see discussion above re: hematoma, drop in H/H, etc (7) Acute dehydration: resolved (8) Alcohol intoxication: resolved personal financial counselor to not use alcohol (9) Alcoholism: cont thiamine to 200mg BID recommend 1 month of supplementation at d/c no signs/symptoms of etoh withdrawal remains on librium 25mg BID and tolerating such would taper starting in am (10) REM sleep behavior disorder: Has seen neurology as an outpatient for this Tends to sleep walk Ideally should not live alone given her frequent falls and this condition (11) Paroxysmal atrial fibrillation: Now with sustained a.fib/flutter. Rates uncontrolled but had NOT been getting beta sher[place]; resuming that now. if she needs additional rate control - add CCB Holding xarelto due to acute blood loss anemia and hematoma in right buttock (12) Pulmonary hypertension: noted (13) Chronic diastolic congestive heart failure: compensated on exam once again resuming BB (14) CAD (coronary artery disease): Cont ASA 81 mg daily, metoprolol succinate, atorvastatin NO ischemic sx's at this time (15) Gastric bypass status for obesity: at high risk of PUD given her etoh use and bypass status (16) Hypertension: acceptable control (17) Hyperlipemia: statin (18) Lower back pain: acute/chronic checked lumbar spine x-rays -- NO compression fx seen (19) Diabetes: A1C= 6.2% October 2018 controlled (20) Obstructive sleep apnea syndrome: Continue CPAP (21) DVT prophylaxis: SCDs holding Xarelto as noted above PT/OT both advised rehab initially today she did better however with that said she is borderline for home will discuss this with her tomorrow but she does not seem interested at all in rehab Subjective feeling good anxious to get home tele with uncontrolled a.flutter - rates low 100s at rest; 140s w/ exertion has some mild STEPH[place] pain in right chest, right buttocks, and right leg improved no new complaints does not want to attend inpatient rehab post-d/c Review of Systems Constitutional: no fever and no anorexia Respiratory: no cough Cardiovascular: as per Subjective / HPI, + chest pain (due to right sided rib Fractures) and + dyspnea on exertion; no orthopnea and no paroxysmal nocturnal dyspnea Gastrointestinal: no abdominal pain Physical Exam Constitutional: + obese; no acute distress and no altered mental status ENMT: external ear and nose normal, oropharynx normal Respiratory: normal respiratory effort, lungs clear to auscultation Cardiovascular: Rate/Rhythm: + tachycardic and + irregularly irregular Heart Sounds: normal S1 and normal S2; no murmur Vessels: posterior tibial pulses present and dorsalis pedis pulses present; no JVD Gastrointestinal (Abdomen): normal bowel sounds, soft, nontender, no hepatosplenomegaly Musculoskeletal: mild bruising present about the right knee Neurologic: no focal motor deficits Psychiatric: A+Ox3, euthymic affect Results & Data Vital Signs (Past 12 Hours) Vital Signs Temp Pulse Resp BP Pulse Ox 02/07/19 20:35 37.1 C 80 18 118/68 98 02/07/19 19:22 37 C 76 18 103/66 98 02/07/19 16:00 36.6 C 174 H 18 148/63 H 99 02/07/19 15:04 36.8 C 102 H 16 128/64 98 02/07/19 11:22 36.7 C 100 H 18 125/75 97 Laboratory Results Laboratory Results - last 24 hr 09/05/1602/07/19 02/07/19 05:52 05:52 07:34 WBC 8.12 RBC 2.67 L Hgb 8.5 L Hct 26.3 L MCV 98.5 MCH 31.8 MCHC 32.3 RDW Std Deviation 51.9 H RDW Coeff of Argenis 14.5 Plt Count 218 MPV 10.2 Sodium 141 Potassium 4.6 Chloride 112 H Carbon Dioxide 22 Anion Gap 7.0 BUN 36 H Creatinine 1.27 H Est Cr Clr Drug Dosing 36.5 Est GFR ( Amer) 46.5 Est GFR (Non-Af Amer) 40.1 BUN/Creatinine Ratio 28.4 H Glucose 97 POC Glucose 101 H Calcium 8.3 L 02/07/19 02/07/19 02/07/19 11:35 16:16 20:14 WBC RBC Hgb Hct MCV MCH MCHC RDW Std Deviation RDW Coeff of Argenis Plt Count MPV Sodium Potassium Chloride Carbon Dioxide Anion Gap BUN Creatinine Est Cr Clr Drug Dosing Est GFR ( Amer) Est GFR (Non-Af Amer) BUN/Creatinine Ratio Glucose POC Glucose 129 H 130 H 63 L* Calcium 02/07/19 02/07/19 20:15 20:42 WBC RBC Hgb Hct MCV MCH MCHC RDW Std Deviation RDW Coeff of Argenis Plt Count MPV Sodium Potassium Chloride Carbon Dioxide Anion Gap BUN Creatinine Est Cr Clr Drug Dosing Est GFR ( Amer) Est GFR (Non-Af Amer) BUN/Creatinine Ratio Glucose POC Glucose 67 L* 129 H Calcium PG Care Time/CCT Total # of Minutes Spent Total Time Spent with Patient: Total time spent is greater than 50% in coordination of care (as documented) at patient's floor/unit and/or counseling patient: (1) Traumatic hematoma of buttock Encounter type: initial encounter Qualified Code(s): S30.0XXA - Contusion of lower back and pelvis, initial encounter (2) Closed fracture of rib of right side Encounter type: initial encounter Rib fracture type: single rib Qualified Code(s): S22.31XA - Fracture of one rib, right side, initial encounter for closed fracture (3) Lower back pain Back pain laterality: unspecified Chronicity: chronic Sciatica presence: without sciatica Qualified Code(s): M54.5 - Low back pain; G89.29 - Other chronic pain (4) Diabetes Diabetes mellitus complication status: without complication Diabetes mellitus [facility] insulin use: without buttermaker continuous churn use Diabetes mellitus type: type 2 Qualified Code(s): E11.9 - Type 2 diabetes mellitus without complications (5) CAD (coronary artery disease) Associated angina: without angina Coronary Disease-Associated Artery/Lesion type: [place] artery [place] vs. transplanted heart: [place] heart Qualified Code(s): I25.10 - Atherosclerotic heart disease of [place] coronary artery without angina pectoris (6) Accidental overdose Encounter type: subsequent encounter Qualified Code(s): T50.901D - Poisoning by unspecified drugs, medicaments and biological substances, accidental (unintentional), subsequent encounter (7) Alcohol intoxication Complication of substance-induced condition: with unspecified complication Qualified Code(s): F10.929 - Alcohol use, unspecified with intoxication, unspecified (8) Hyperlipemia Hyperlipidemia type: mixed hyperlipidemia Qualified Code(s): E78.2 - Mixed hyperlipidemia (9) Syncope Syncope type: unspecified Qualified Code(s): R55 - Syncope and collapse (10) Hypertension Hypertension type: essential hypertension Qualified Code(s): I10 - Essential (primary) hypertension
[2019-02-08] MEDS: ACETAMINOPHEN 500 MG TAB PO SCH ×2 (01:35→10:06)
[2019-02-08 05:59] LABS: Hematocrit (blood only) 25.1 % (37-47); Hemoglobin 8.1 g/dL (12.0-16.0); Mean Corpuscular Hgb Conc 32.3 g/dL (32-36); Mean Platelet Volume 9.4 fL (7.4-10.4); Platelet Count 204 K/uL (130-400); RDW Coefficient of Variation 14.4 % (11.5-14.5); Red Blood Count 2.56 M/uL (4.2-5.4); White Blood Count 6.49 K/uL (4.8-10.8)
[2019-02-08 06:26] LABS: Creatinine Clr Calc Pharmacy 38.7 ml/min; Est GFR (African American) 49.8; Potassium 4.9 mmol/L (3.5-5.1)
--- NOTE | 2019-02-08 07:08 | XRay Report ---
XR chest 1V portable CLINICAL HISTORY: Chest pain. Rib fractures. COMPARISON STUDY: 02/06/2019 FINDINGS: The cardiac and mediastinal contours remain stable. There is persistent deviation of the tr achea to the right of midline. The heart is enlarged. There are postsurgical changes of a midline mounika rnotomy. Several right-sided rib fractures are visualized. There is no pneumothorax. There is slight elevation of interstitium and an element of mild pulmonary vascular congestion must be considered. Tr arleth pleural effusions are suspected[ IMPRESSION: 1. Cardiomegaly and suspected mild pulmonary vascular congestion with trace pleural effusions 2. Right-sided rib fractures. No evidence of pneumothorax Electronically signed by: David Underwood M.D. 02/08/2019 7:06 AM
[2019-02-08] MEDS ORDERED: FERROUS SULFATE 325 MG TAB PO SCH (08:00)
[2019-02-08 08:06] LABS: Codeine Urine NEGATIVE NG/ML (CUTOFF=50); Hydrocodone Urine NEGATIVE NG/ML (CUTOFF=50); Hydromor Urine NEGATIVE NG/ML (CUTOFF=50); Morphine Urine 3560 NG/ML (CUTOFF=50); Norhydrocodone Conf Ur NEGATIVE NG/ML (CUTOFF=50); Noroxycodone Urine NEGATIVE NG/ML (CUTOFF=50); Oxycodone Urine NEGATIVE NG/ML (CUTOFF=50); Oxymorph Urine NEGATIVE NG/ML (CUTOFF=50)
[2019-02-08] MEDS: INSULIN ASPART 100 UNITS/ML 3 ML PEN SC SCH ×2 (08:54→12:42)
[2019-02-08] MEDS: METOPROLOL TARTRATE 100 MG TAB PO SCH (08:55)
[2019-02-08] MEDS: POTASSIUM CHLORIDE 10 MEQ TABCR PO SCH (08:55)
[2019-02-08] MEDS: MULTIVITAMIN TAB PO SCH (08:56)
[2019-02-08] MEDS: GABAPENTIN 300 MG CAP PO SCH (08:56)
[2019-02-08] MEDS: THIAMINE HCL 100 MG TAB PO SCH (08:56)
[2019-02-08] MEDS: FOLIC ACID 400 MCG TAB PO SCH (08:56)
[2019-02-08] MEDS: SACCHAROMYCES BOULARDII 250 MG CAP PO SCH (08:56)
[2019-02-08] MEDS ORDERED: FUROSEMIDE 40 MG TAB PO SCH (09:00)
[2019-02-08] MEDS: chlordiazePOXIDE HCl 25 MG CAP PO SCH (09:20)
--- NOTE | 2019-02-08 13:59 | Surgery Progress Note ---
Date of Service February 08, 2019 Assessment & Plan (1) Closed fracture of rib of right side: CXR today shows no pneumothorax or pleural effusions -continue pain control measures -encourage coughing, deep breathing, use of IS -at time of d/c we will call for a 2 week f/u appt. with repeat CXR Subjective Pt. doing well without SOB. She only has pain with very deep breathing and movement, but overall her pain is controlled. Physical Exam Constitutional: well developed and well nourished; no acute distress Respiratory: normal respiratory effort, lungs clear to auscultation Results & Data Vital Signs (Past 12 Hours) Vital Signs Temp Pulse Pulse Resp BP Pulse Ox 02/08/19 13:41 36.7 C 74 20 108/70 97 02/08/19 12:04 36.7 C 74 20 108/70 97 02/08/19 07:17 74 02/08/19 07:00 36.7 C 79 20 117/79 98 02/08/19 02:50 36.6 C 74 15 118/65 98 (1) Closed fracture of rib of right side Encounter type: initial encounter Rib fracture type: single rib Qualified Code(s): S22.31XA - Fracture of one rib, right side, initial encounter for closed fracture
[2019-02-09] MEDS ORDERED: GABAPENTIN 400 MG CAP PO SCH
== END 2019-02-08 15:30 | disposition home health service (06) | DRG 312 ==
LOC: ED 04:42 → 2N 09:44
DX: S22.41XA Multiple fractures of ribs, right side, initial encounter for closed fracture; R60.0 Localized edema; I27.20 Pulmonary hypertension, unspecified; I11.0 Hypertensive heart disease with heart failure; G47.52 REM sleep behavior disorder; Z79.899 Other long term (current) drug therapy; Z79.82 Long term (current) use of aspirin; Z79.01 Long term (current) use of anticoagulants; Z91.018 Allergy to other foods; Z79.891 Long term (current) use of opiate analgesic; T42.6X1A Poisoning by other antiepileptic and sedative-hypnotic drugs, accidental (unintentional), initial encounter; E86.0 Dehydration; M54.5 Low back pain; T42.4X1A Poisoning by benzodiazepines, accidental (unintentional), initial encounter; R55 Syncope and collapse; I34.0 Nonrheumatic mitral (valve) insufficiency; E55.9 Vitamin D deficiency, unspecified; Z99.89 Dependence on other enabling machines and devices; I50.32 Chronic diastolic (congestive) heart failure; Y92.009 Unspecified place in unspecified non-institutional (private) residence as the place of occurrence of the external cause; Z91.81 History of falling; I48.0 Paroxysmal atrial fibrillation; Y90.7 Blood alcohol level of 200-239 mg/100 ml; T51.0X1A Toxic effect of ethanol, accidental (unintentional), initial encounter; D62 Acute posthemorrhagic anemia; M19.90 Unspecified osteoarthritis, unspecified site; S30.0XXA Contusion of lower back and pelvis, initial encounter; Z87.891 Personal history of nicotine dependence; W19.XXXA Unspecified fall, initial encounter; I25.10 Atherosclerotic heart disease of native coronary artery without angina pectoris; F10.229 Alcohol dependence with intoxication, unspecified; Z98.84 Bariatric surgery status; R29.6 Repeated falls; E78.5 Hyperlipidemia, unspecified; E11.9 Type 2 diabetes mellitus without complications; G47.33 Obstructive sleep apnea (adult) (pediatric); I48.92 Unspecified atrial flutter; Z91.041 Radiographic dye allergy status

== ENCOUNTER 2021-01-06 10:04 | Inpatient (IN) ==
[2021-01-06] MEDS ORDERED: HEPARIN (PORCINE) 1000 UNIT/ML 10 ML (CATH LAB USE ONLY) ONE (11:15)
[2021-01-06] MEDS ORDERED: niCARdipine HCL INJ 2.5 MG/ML 10 ML AMP ONE (11:15)
[2021-01-06] MEDS ORDERED: MIDAZOLAM HCL 1 MG/ML 2ML VIAL ONE (11:16)
[2021-01-06] MEDS ORDERED: NITROGLYCERIN/D5W 100MCG/ML 20ML SYR ONE (11:16)
[2021-01-06] MEDS ORDERED: fentaNYL citrate 100 MCG/2 ML VIAL ONE (11:16)
--- NOTE | 2021-01-06 11:47 | Pre Anesthesia Assessment ---
Date of Service January 06, 2021 Pre Sedation Assessment Vital Signs Temp Pulse Resp BP Pulse Ox 01/06/21 10:15 97.5 F L 89 18 150/81 H 96 Cardiovascular RRR, no murmur, no edema Respiratory normal respiratory effort, lungs clear to auscultation Pre-Sedation Airway Assessment Smoking Status: Former smoker Hx Sleep Apnea: Yes Hx Difficult Intubation: No Short, Thick Neck: No Thyromental Distance: > or= 3.5 Finger Breadths Oral Cavity: + WNL Mallampati Class: II ASA: ASA3 NPO Status Date of Last Intake of Fluids: 01/06/21 Time of Last Intake of Fluids: 06:00 Date of Last Intake of Solid Food: 01/05/21 Time of Last Intake of Solid Foods: 22:30 Procedure Planning Contraindications for Sedation: none Current Medications Reviewed: Yes Notes The planned sedation has been discussed with the patient. Informed Consent was obtained. I have identified the patient, determined the appropriateness of sedation and have assessed the patient immediately prior to the procedure. All medicine(s) and interventions are by my order.
--- NOTE | 2021-01-06 11:47 | History & Physical Bridge Note ---
Date of Service January 06, 2021 History & Physical Bridge Note I have examined the patient, reviewed the History & Physical and in the interval since the performance of the History & Physical I have noted the following changes of clinical significance: no changes noted
[2021-01-06] MEDS ORDERED: diphenhydrAMINE 50 MG/ML VIAL ONE (11:51)
[2021-01-06] MEDS ORDERED: methylPREDNISolone 125 MG/2 ML VIAL ONE (11:51)
[2021-01-06] MEDS ORDERED: CLOPIDOGREL BISULFATE 300 MG TAB ONE (13:30)
--- NOTE | 2021-01-06 13:33 | Post Anesthesia Assessment ---
Date of Service January 06, 2021 Post Sedation Assessment Vital Signs Temp Pulse Resp BP Pulse Ox 01/06/21 10:15 97.5 F L 89 18 150/81 H 96 Recovery Score Activity: Moves 4 extremities Respiration: Deep Breath/Cough Circulation: +/-20% PreAnes Value Consciousness: Fully Awake Oxygen Saturation: O2 needed for >90% Discharge Sedation Level of Care: Fast Track Phase II Post Sedation Plan On clinical assessment, the patient appears to have tolerated the sedation without complications. Patient is recovering as anticipated. Patient will continue to be monitored by nursing and may be discharged when sedation discharge criteria are met per below protocol. Upon Completions of procedure up to 15 minutes continue every 5 minute vital signs and the P.A.R. score; then discharge to a Phase I or Fast Track to Phase I I per the following guidelines: * Discharge Patient to appropriate Phase II area if PAR is 8 or greater or return to pre- procedure baseline. The post - procedure orders will be as directed. * If PAR score is less than 8 or not return to pre-procedure baseline then patient will follow Phase I monitoring till PAR is reached for Phase II. The Phase I may be done in procedure room or may call to secure a Phase I area. * If naloxone or flumazenil are used for reversal, hold in Phase I for continued monitoring from when last reversal dose was given for a minimum of 60 minutes or longer pending the nurse and/or physician discretion of patient condition before discharge to Phase II. Please call the Sedation Physician to re-evaluate and complete post-note for discharge to Phase II area. Do NOT discharge from procedure sedation or Phase 1 until post- sedation evaluation note is complete by procedure /sedation MD Sedation Discharge Instructions to be given to the patient at discharge to home.
--- NOTE | 2021-01-06 13:36 | Post Operative Brief Note ---
Cardiology Brief Post Op Date of Surgery January 06, 2021 Pre & Post Diagnosis CAD Procedure Coronary angiography Left heart catheterization Vein graft angiography WAN to SVG to distal RCA (3.5 x 15 Roni) Radiator Core Tester Dmitry Celis MD Senior Java Web Developer Showers Estimated Blood Loss 15 Findings See Below 99% distal SVG to RCA Successful PCI with single WAN Specimens Specimen Description: none Drains Other Anesthesia Type RN Sedation Complications none Disposition Accompanied Patient To Recovery: Yes Disposition: Recovery Room Overlapping Procedure I was present for: the critical portions of procedure. I was immediately available: during the entire case. Back up surgeon: was not required during procedure.
[2021-01-06] MEDS ORDERED: ONDANSETRON INJ 2 MG/ML 2 ML VIAL IV PRN (13:37)
[2021-01-06] MEDS ORDERED: NITROGLYCERIN SL 0.4 MG/TAB TAB SL PRN (13:37)
[2021-01-06] MEDS ORDERED: ACETAMINOPHEN 325 MG TAB PO PRN (13:37)
[2021-01-06] MEDS ORDERED: SODIUM CHLORIDE 0.9% 1000ML 750 ML IV SCH (14:30)
--- NOTE | 2021-01-06 16:37 | Cardiac Catheterization ---
[facility] Data: Research Chief Engineer Cardiac Status Clinical evaluation leading to the procedure CAD Presenation: Stable angina Anginal Classification: CCS III Heart Failure: No Cardiogenic Shock within 24 Hours: No Cardiac Arrest within 24 Hours: No Imaging Studies Past 6 Months: Yes Stress Studies Past 6 Months: No Diagnostic Physicians Name: Dmitry Celis MD Status: Elective Closure Device Percutaneous Entry Location: Femoral Closure Device: StarClose Recommendations: PCI without planned CABG PCI Indication: Angina despite med therapy and Stable Angina Lesion Segment Name: SVG to RCA Culprit Artery: Yes Stenosis Prior to Rx (%): 99 Chronic Total Occlusion: No IVUS: No FFR: No Pre-Procedure BRIAN Flow: 3 Previously Treated Lesion: No Lesion Complexity: High/C Lesion Length (mm): 12 Thrombus Present: No Bifurcation Lesion: No Guidewire Across Lesion: Stenosis Post-Procedure (%): 0 Post-Procedure BRIAN Flow: 3 Devices(s) Deployed: Yes Yes Intraprocedure Events Significant Disection: No Perforation: No Cardiac Cath Procedure Full Procedure Date January 06, 2021 Pre-Procedure Diagnosis Pre-Procedure Diagnosis: Angina AUC Score AUC Score: 7 Post-Procedure Diagnosis Post-Procedure Diagnosis: Severe CAD, Successful PCI and Normal Intracardiac Pressures Procedure(s) Performed Procedure(s) Performed: Coronary Angiography, Left Heart Cath, Drug Eluting Stent, Ultrasound Guided Vascular Access, Bypass Graft Angiography and Femoral Artery Angiography Operations Management Trainee Dmitry Celis MD Casket Upholsterer(s) Showers Estimated Blood Loss Estimated Blood Loss: 15 Medication(s) Medication(s): Clopidogrel, Fentanyl, Heparin, Lidocaine 1%, Nicardipine, Nitroglycerin and Versed Summary of Findings Indication: Severe CAD with known 90% distal SVG to RCA stenosis, moderate mid LAD stenosis. Refractory angina despite 3 antianginal/maximal medical therapy Access: 6 Fr common femoral artery under ultrasound guidance. Noted to have severe right common iliac artery stenosis. Crossed with diagnostic catheter and Glidewire. 45 cm destination sheath placed across stenosis into descending thoracic aorta. Catheters: Diagnostic JL 3.5, JR4, JR4 guide Findings: Left anterior descending: LAD, large caliber vessel. Proximal LAD 20-30%. Mid LAD 50-60%, involving ostium of moderate D2. Distal LAD 80%. D2 60-70% ostial. Ccaf-mu-oogm collaterals to the circumflex. Vimt-zv-aljhv collaterals. BRIAN 3 flow. Circumflex: Not visualized. 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 Right coronary artery: Not visualized, known 100% proximal occlusion. SVG to RCA: 99% stenosis just proximal to anastomosis with distal RCA. BRIAN 2 flow. 70% mid R-PDA. 50% ostial R-PAV branch. LVEDP -8 -- PCI -- Antithrombotic therapy: Heparin, clopidogrel Procedure: SVG to RCA ostium cannulated with JR4 guide Field Insurance Sales Manager 50 wire passed across lesion into distal right PDA Distal SVG lesion predilated with 2.5 compliant balloon Unable to pass stent across stenosis Guideliner placed into proximal SVG, distal SVG stenosis redilated with 3.0 balloon Dilated lesion stented with 3.5 x 15 mm Roni drug-eluting stent Stent post-dilated with 3.5 noncompliant balloon IC vasodilators administered for spasm Post procedure BRIAN 3 flow, stent well expanded with minimal residual stenosis and no apparent cardiac complications. Arterial Closure: Starclose Summary: 1. 99% SVG to RCA stenosis just prior to anastomosis 2. 50-60% mid LAD stenosis at bifurcation with D2. 80% distal LAD stenosis. 3. Normal intracardiac filling pressure 4. Calcified 70-80% proximal right common iliac artery stenosis 5. Successful PCI of distal SVG to RCA with single drug-eluting stent (3.5 x 15 mm Roni). Recommendations: To PCU for continued monitoring Loaded with clopidogrel 600 mg in Research Chief Engineer Continue triple therapy with aspirin, Xarelto, clopidogrel while hospitalized. Discharged on dual therapy with clopidogrel, Xarelto. Consult cardiac Rehab Recommend continued medical management of residual RCA branch vessel disease and mid/distal LAD disease. Hemodynamics Rest Ao:: 161/92/120 Final Ao: 140/67/93 LV: 150/8 Recommendations Recommendations: PCI without planned CABG Specimens Specimens: None Radiation Exposure (mGy) 2574 Contrast (mls) 100 Fluids (cc crystalloids) Fluids (cc crystalloids): 425 Drains Drains: None Anesthesia Moderate 2283-6140 Procedural Complication(s) None Disposition PCU I attest to the content of the Intraoperative Record and any orders documented therein. Any exceptions are noted below. [facility] Card Cath Procedure Codes Cardiac Catheterization Procedure 1: Cardiovascular Cath Procedures: 75818 Coronaries & LHC (+/-LV) & Grafts/IM (arterial & venous) Therapeutic Services & Ancillary Proc Procedure 1: Cardiovascular Tx and Anc Procedures: 83608 Ultrasonic Guidance Vascular Access Moderate Sedation Procedure 1: Sedation/Anesthesia: 87404 Mod Sedation by the same physician;Init15 Min Child Age 5 & Up Procedure 2: Sedation/Anesthesia: 66482 Mod Sedation by the same physician; Ea [id number] Minutes Stenting Procedure 1: Cardiovascular Stent Procedures: 85743 Perc tranluminal revascularization of or throughout CABG PG Care Time/CCT Total # of Minutes Spent Total Time Spent with Patient: Total time spent is greater than 50% in coordination of care (as documented) at patient's floor/unit and/or counseling patient:
--- NOTE | 2021-01-06 20:57 | CT Scan Report ---
CT SCAN OF THE ABDOMEN AND PELVIS WITHOUT IV CONTRAST CLINICAL HISTORY: Drop in hematocrit. Recent cardiac catheterization. Clinical concern for retroper itoneal hemorrhage. COMPARISON STUDY: Abdominal CT dated 05/19/2020. TECHNIQUE: CT scan of the abdomen and pelvis is performed from the lung bases to the proximal femora. Images are reviewed in the axial, sagittal, and coronal planes. IV contrast was not administered for this examination. A dose lowering technique was utilized adhering to the principles of ALARA. CT DOSE: 261.15 mGy.cm FINDINGS: Lung bases: The patient is status post midline sternotomy. The heart is mildly enlarged and without p ericardial effusion. The coronary arteries and mitral annulus are densely calcified. The lung bases a re clear. Liver: The unenhanced liver is normal in size, contour, and attenuation. There is no intrahepatic corrine iary ductal dilatation. Pneumobilia is noted. Gallbladder: Surgically absent. Spleen: Normal in size and attenuation. Pancreas: The unenhanced pancreas is atrophic and grossly unremarkable. Adrenal glands: Nodularity of the adrenal glands is unchanged. Kidneys: The unenhanced kidneys are atrophic. There is retained cortical contrast seen bilaterally. T here are renovascular calcifications. Excreted contrast is present within the collecting system and d egrades assessment for renal calculi. There is no evidence of contour deforming renal mass lesion. Abdominal vasculature: There is advanced atherosclerotic calcification and mild ectasia of the abdomi nal aorta. The IVC is decompressed. Stomach and bowel: There is a moderate hiatal hernia. There is postoperative change from gastrectomy and gastrojejunostomy. There is advanced colonic diverticulosis without CT evidence of acute divertic ulitis. No bowel obstruction is seen. The appendix is not visualized. Peritoneum/retroperitoneum: There is no intraperitoneal free air or abdominal ascites. There is a lar ge amount of intrapelvic extraperitoneal hemorrhage. This is greatest on the right and is seen at and above the level of the bladder. There is also trace retroperitoneal hemorrhage in the right paracoli c gutter. Lymphadenopathy: None. Pelvic viscera: Evaluation of the pelvis is degraded by streak artifact from a right hip arthroplasty . The bladder is markedly distended and filled with excreted contrast. The bladder is otherwise gross ly unremarkable. There are calcified uterine fibroids. No adnexal lesion is seen. Skeletal structures: The skeletal structures are osteopenic. There is moderate to advanced lumbosacra l spondylosis, and a chronic compression deformity of L1. No lytic or blastic lesions are seen. A rig ht hip arthroplasty is in place. There are healed right-sided rib fractures. IMPRESSION: 1. There is a large volume of intrapelvic extraperitoneal hemorrhage centered in the right pelvis at and above the level of the bladder. 2. A small amount of hemorrhage extends superiorly into the right paracolic gutter. 3. Mild cardiomegaly. 4. Advanced colonic diverticulosis without CT evidence of acute diverticular disease. 5. The bladder is significant distended with excreted IV contrast. 6. There is retained cortical contrast in the kidneys. 7. Postoperative change involving the stomach and additional findings as above ACT 112: Negative or not required by law. Electronically signed by: Cipriano Diaz M.D. 01/06/2021 8:56 PM
[2021-01-06] MEDS: levETIRAcetam 500 MG TAB PO SCH (21:29)
[2021-01-06] MEDS: GABAPENTIN 300 MG CAP PO SCH (21:29)
[2021-01-06] MEDS: ATORVASTATIN 40 MG TAB PO SCH (21:29)
--- NOTE | 2021-01-06 21:34 | Communication Note ---
Date of Service: January 06, 2021 Called to bedside after patient reported new RLQ pain/tenderness and nursing staff noted area above FACTORY REPRESENTATIVE access site to be firm. On my exam access site unchanged but RLQ firm, severely tender to light tough. No flank or back pain. FACTORY REPRESENTATIVE and distal pulses intact. CT A/P noted extraperitoneal hematoma in pelvis. Blood pressures stable, Heart rate unchanged. A/P: With co-morbidities will plan for conservative management unless hemodynamic instability. Check serial H/H. Repeat coags, type and screen. Pain control Hold anticoagulation and antihypertensives. Continue Plavix.
[2021-01-06 22:24] LABS: Hematocrit (blood only) 29.5 % (37-47); Hemoglobin 9.7 g/dL (12.0-16.0); Mean Corpuscular Hemoglobin 32.6 pg (25-34); Mean Corpuscular Hgb Conc 32.9 g/dL (32-36); Mean Platelet Volume 10.1 fL (7.4-10.4); Platelet Count 276 K/uL (130-400); RDW Coefficient of Variation 13.5 % (11.5-14.5); RDW Standard Deviation 48.6 fL (36.4-46.3); Red Blood Count 2.98 M/uL (4.2-5.4); White Blood Count 6.54 K/uL (4.8-10.8)
[2021-01-06 22:35] LABS: INR 1.1 (0.9-1.1); Partial Thromboplastin Ratio 1.6; Partial Thromboplastin Time 42.9 Seconds (21.0-31.0); Prothrombin Time 10.9 Seconds (9.0-12.0)
[2021-01-07 05:36] LABS: Hemoglobin 8.8 g/dL (12.0-16.0); Immature Granulocytes # (auto) 0.03 K/uL (0.00-0.02); Immature Granulocytes % (auto) 0.3 %; Lymphocytes # (auto) 0.82 K/uL (1.2-3.4); Lymphocytes % (auto) 8.9 %; Mean Corpuscular Hgb Conc 32.6 g/dL (32-36); Mean Corpuscular Volume 98.2 fL (80-100); Mean Platelet Volume 10.1 fL (7.4-10.4); Monocytes # (auto) 0.49 K/uL (0.11-0.59); Monocytes % (auto) 5.3 %; Neutrophils # (auto) 7.91 K/uL (1.4-6.5); Neutrophils % (auto) 85.5 %; Platelet Count 259 K/uL (130-400); RDW Coefficient of Variation 13.7 % (11.5-14.5); RDW Standard Deviation 48.8 fL (36.4-46.3); Red Blood Count 2.75 M/uL (4.2-5.4); White Blood Count 9.25 K/uL (4.8-10.8)
[2021-01-07 06:02] LABS: Calcium 8.6 mg/dl (8.5-10.1); Creatinine Clr Calc Pharmacy 25.9 ml/min; Est GFR (African American) 31.5 ml/min; Est GFR (Non-African American) 27.2 ml/min
[2021-01-07 06:28] LABS: Potassium 4.7 mmol/L (3.5-5.1)
[2021-01-07] MEDS: ASPIRIN 81 MG ECTAB PO SCH (08:34)
[2021-01-07] MEDS: CLOPIDOGREL BISULFATE 75 MG TAB PO SCH (08:34)
[2021-01-07] MEDS: levETIRAcetam 500 MG TAB PO SCH ×2 (08:34→20:19)
--- NOTE | 2021-01-07 08:52 | Cardiology Progress Note ---
Date of Service January 07, 2021 Assessment & Plan (1) CAD (coronary artery disease): Plan: --post PCI with WAN to SVG to RCA 2. Extraperitoneal hematoma 3. Blood loss anemia 4. Paroxysmal AF 5. Liver mass Hemoglobin down to 8.8 today Hemodynamically stable. No chest pain Renal function stable Continued conservative management/observation. -- Repeat H/H this afternoon -- Continue to hold xarelto -- Continue ASA/clopidogrel uninterrupted. -- start back low dose metoprolol 25mg BID -- titrate up as able. -- hold imdur -- stop ranexa -- increase activity this afternoon as able. If stable overnight possible discharge tomorrow Admission and Anticipated Discharge Date Admission Date: January 06, 2021 Subjective No significant pain this morning while lying in bed. No chest pain. Tele reviewed -- AF with HRs intermittently up to 110s. Physical Exam Constitutional: no acute distress Eyes: + anicteric sclerae Respiratory: normal respiratory effort, lungs clear to auscultation Cardiovascular: Rate/Rhythm: + irregularly irregular Heart Sounds: no murmur Vessels: dorsalis pedis pulses present (distal extremities luke warm) Extremities: no edema RT PROFESSIONAL TUTOR pulse intact. No ecchymosis. +tenderness Abdominal lower quadrants soft, tender. no ecchymosis. no flank/back pain. Gastrointestinal (Abdomen): Percussion/Palpation: + abdomen tender and abdomen soft Skin: no rashes, warm and dry Psychiatric: A+Ox3, euthymic affect Results & Data ([facility]) Vital Signs (Past 12 Hours) Vital Signs Temp Pulse Pulse Resp BP Pulse Ox 01/07/21 03:30 97.5 F L 81 12 100/66 100 01/07/21 02:00 85 94/64 L 01/07/21 00:23 109/58 L 01/07/21 00:00 101 H 01/06/21 22:00 97.3 F L 77 18 100/60 99 PG Care Time/CCT Total # of Minutes Spent Total Time Spent with Patient: Total time spent is greater than 50% in coordination of care (as documented) at patient's floor/unit and/or counseling patient: Coding Level of Care Code 34922 Subseq Hosp Care Lvl 3 Diagnoses CAD (coronary artery disease) I25.10 Coronary Disease-Associated Artery/Lesion type: [place] artery [place] vs. transplanted heart: morongo heart Associated angina: without angina (1) CAD (coronary artery disease) Coronary Disease-Associated Artery/Lesion type: [place] artery [place] vs. transplanted heart: morongo heart Associated angina: without angina Qualified Code(s): I25.10 - Atherosclerotic heart disease of [place]ongo coronary artery without angina pectoris
[2021-01-07] MEDS ORDERED: ISOSORBIDE MONO EXTENDED REL 60 MG TABCR PO SCH (09:00)
[2021-01-07] MEDS ORDERED: RIVAROXABAN 20 MG TAB PO SCH (09:00)
[2021-01-07] MEDS ORDERED: METOPROLOL SUCC 50MG EXT REL TAB PO SCH (09:00)
[2021-01-07] MEDS: METOPROLOL TARTRATE 25 MG TAB PO SCH ×2 (10:35→20:19)
[2021-01-07] MEDS ORDERED: GLUCOSE 40% GEL 15 GM TUBE PO PRN (12:45)
[2021-01-07] MEDS ORDERED: GLUCOSE 10 TABS/TUBE PO PRN (12:45)
[2021-01-07] MEDS ORDERED: GLUCAGON FOR INJ 1 MG VIAL SQ PRN (12:45)
[2021-01-07] MEDS ORDERED: PHARMACY GLYCEMIC MGMT CONSULT PRN (12:45)
[2021-01-07] MEDS ORDERED: DEXTROSE 50% 50 ML SYRINGE IV PRN (12:45)
[2021-01-07] MEDS ORDERED: CARBOHYDRATES FOR HYPOGLYCEMIA PO PRN (12:45)
[2021-01-07 12:57] LABS: Hematocrit (blood only) 27.7 % (37-47)
--- NOTE | 2021-01-07 13:20 | Electrocardiogram Report ---
Test Reason : Blood Pressure : / mmHG Vent. Rate : 083 BPM Atrial Rate : 075 BPM P-R Int : 000 ms QRS Dur : 134 ms QT Int : 448 ms P-R-T Axes : 000 044 -44 degrees QTc Int : 526 ms Atrial fibrillation Right bundle branch block Abnormal ECG Confirmed by Dmitry Kelley ([id number]) on 01/07/2021 1:19:56 PM Referred By: Isaac Andrade Confirmed By:Diego Kelley
[2021-01-07 14:09] LABS: Estimated Average Glucose 114 mg/dl; Hemoglobin A1C 5.6 % (4.5-5.6)
--- NOTE | 2021-01-07 14:57 | Pharmacy Report ---
Pharmacy Glycemic Short Note 2 - Date of Service January 07, 2021 - Glycemic Short BSG Results (Last 24 hours): 01/07/21 05:14 Glucose 192 H OUTPATIENT ANTIDIABETIC REGIMEN: * none * A1c = 5.6% 01/07/21 ASSESSMENT: * Patient w/ prior dx of DM, well controlled with diet and lifestyle at this time per A1c * GLU elevated on this AMs chemistry, however likely due to receipt of IV steroids * Will initial Novolog correctional insulin today given effects of steroid likely to dissipate quickly. Will add prandial insulin if post-prandial hyperglycemia observed. PLAN FOR INPATIENT GLYCEMIC CONTROL: * Basal insulin * None at this time * Bolus insulin * NovoLog per scale ACHS or Q6hrs while NPO * Goal Range: Low 110 mg/dL - High 150 mg/dL * Correction Factor: 25 mg/dL/unit * Nutritional / Prandial insulin per carb ratio of 1 unit per -- grams CHO consumed PLAN FOR DISCHARGE: * A1c at goal, no need to initiate pharmacotherapy at this time
[2021-01-07] MEDS: INSULIN ASPART 100 UNITS/ML 3 ML PEN SC SCH ×2 (16:52→20:25)
[2021-01-07] MEDS: ATORVASTATIN 40 MG TAB PO SCH (20:20)
[2021-01-07] MEDS: GABAPENTIN 300 MG CAP PO SCH (20:20)
[2021-01-08 05:26] LABS: Basophils # (auto) 0.01 K/uL (0-0.2); Basophils % (auto) 0.1 %; Eosinophils # (auto) 0.03 K/uL (0-0.5); Eosinophils % (auto) 0.3 %; Hemoglobin 7.5 g/dL (12.0-16.0); Immature Granulocytes # (auto) 0.06 K/uL (0.00-0.02); Immature Granulocytes % (auto) 0.6 %; Lymphocytes # (auto) 2.12 K/uL (1.2-3.4); Mean Corpuscular Hemoglobin 31.9 pg (25-34); Mean Corpuscular Hgb Conc 32.6 g/dL (32-36); Mean Corpuscular Volume 97.9 fL (80-100); Mean Platelet Volume 9.8 fL (7.4-10.4); Monocytes # (auto) 1.28 K/uL (0.11-0.59); Monocytes % (auto) 12.7 %; Neutrophils # (auto) 6.58 K/uL (1.4-6.5); Neutrophils % (auto) 65.3 %; Platelet Count 223 K/uL (130-400); RDW Coefficient of Variation 13.9 % (11.5-14.5); RDW Standard Deviation 49.2 fL (36.4-46.3); Red Blood Count 2.35 M/uL (4.2-5.4); White Blood Count 10.08 K/uL (4.8-10.8)
[2021-01-08 05:43] LABS: Calcium 8.7 mg/dl (8.5-10.1); Creatinine Clr Calc Pharmacy 22.8 ml/min; Est GFR (African American) 27.1 ml/min; Est GFR (Non-African American) 23.4 ml/min
[2021-01-08 06:02] LABS: RBC Morphology Unremarkable
[2021-01-08] MEDS: METOPROLOL TARTRATE 25 MG TAB PO SCH (08:52)
[2021-01-08] MEDS: INSULIN ASPART 100 UNITS/ML 3 ML PEN SC SCH ×4 (08:52→20:41)
[2021-01-08] MEDS: levETIRAcetam 500 MG TAB PO SCH ×2 (08:52→20:25)
[2021-01-08 09:10] LABS: Hematocrit (blood only) 26.2 % (37-47); Hemoglobin 8.6 g/dL (12.0-16.0)
[2021-01-08] MEDS: CLOPIDOGREL BISULFATE 75 MG TAB PO SCH (09:22)
[2021-01-08] MEDS: ASPIRIN 81 MG ECTAB PO SCH (09:22)
[2021-01-08] MEDS ORDERED: METOPROLOL TARTRATE 25 MG TAB PO ONE (12:23)
[2021-01-08] MEDS ORDERED: SODIUM CHLORIDE 0.9% 1000ML 500 ML IV ONE (12:27)
[2021-01-08] MEDS: RANOLAZINE 500 MG ER TAB PO SCH ×2 (13:31→20:26)
[2021-01-08] MEDS: ISOSORBIDE MONO EXTENDED REL 60 MG TABCR PO SCH (13:31)
--- NOTE | 2021-01-08 14:14 | Cardiology Progress Note ---
Date of Service January 08, 2021 Assessment & Plan (1) CAD (coronary artery disease): Plan: --post PCI with WAN to SVG to RCA 2. Extraperitoneal hematoma 3. Blood loss anemia 4. Paroxysmal AF 5. Liver mass 6. Acute on chronic renal insufficiency Looks well today but still having dyspnea with minimal exertion, similar to what she was having prior to PCI but more limiting currently Repeat hemoglobin stable. Hemodynamically, electrically stable. Creatinine slightly low today Suspect dyspnea secondary to residual angina, new anemia on top of chronic medical issues/deconditioning. No signs of heart failure on exam. Plan to continue to resume antianginal therapy gradually, increase metoprolol to 50 mg twice daily, start Imdur 120 mg daily, resume Ranexa --Repeat limited echo -- Continue to hold xarelto -- Continue ASA/clopidogrel uninterrupted. Gentle IV fluids for JASMINA --Encouraged up out of bed this afternoon, consult PT If stable overnight possible discharge tomorrow Admission and Anticipated Discharge Date Admission Date: January 06, 2021 Subjective Reports significant dyspnea yesterday with getting out of bed. Shortness of breath began initially this morning, seemed to improve late morning. No abd discomfort in bed, increases out of bed. Initial Hb reported at 7.5 this morning, repeat 8.6. Creatinine up from 1.7- 1.96. Reports difficulty urinating yesterday. Bedside scan with 400. Was able to urinate later in the morning. Tele reviewed --AF with heart rates primarily in the 70s to 80s Review of Systems Review of Systems: All systems reviewed & are unremarkable except as noted in HPI & below Physical Exam Constitutional: no acute distress Eyes: + anicteric sclerae ENMT: Mallampati Class: II Respiratory: normal respiratory effort, lungs clear to auscultation Cardiovascular: Rate/Rhythm: + irregularly irregular Heart Sounds: no murmur Vessels: dorsalis pedis pulses present (distal extremities luke warm) Extremities: + edema (Trace bilateral additions) Gastrointestinal (Abdomen): Percussion/Palpation: + abdomen tender (Bilateral pelvis left greater than right, no ecchymosis) and abdomen soft Skin: no rashes, warm and dry Psychiatric: A+Ox3, euthymic affect [facility]) Vital Signs (Past 12 Hours) Vital Signs Temp Pulse Pulse Resp BP Pulse Ox 01/08/21 12:00 98.6 F 68 20 114/58 L 96 01/08/21 09:00 124/72 01/08/21 08:00 78 01/08/21 07:00 97.7 F 78 20 96/56 L 98 01/08/21 03:32 97.5 F L 76 16 105/56 L 100 PG Care Time/CCT Total # of Minutes Spent Total Time Spent with Patient: Total time spent is greater than 50% in coordination of care (as documented) at patient's floor/unit and/or counseling patient: Coding Level of Care Code 31435 Subseq Hosp Care Lvl 3 Diagnoses CAD (coronary artery disease) I25.10 Coronary Disease-Associated Artery/Lesion type: [place] artery [place] vs. transplanted heart: saxman heart Associated angina: without angina (1) CAD (coronary artery disease) Coronary Disease-Associated Artery/Lesion type: [place] artery [place] vs. transplanted heart: saxman heart Associated angina: without angina Qualified Code(s): I25.10 - Atherosclerotic heart disease of sax[place] coronary artery without angina pectoris
--- NOTE | 2021-01-08 16:55 | XCELERA ---
[id number]
[2021-01-08] MEDS: ATORVASTATIN 40 MG TAB PO SCH (20:23)
[2021-01-08] MEDS: GABAPENTIN 300 MG CAP PO SCH (20:24)
[2021-01-08] MEDS: HEPARIN SOD 5,000 UNIT/0.5 ML VIAL SQ SCH (20:25)
[2021-01-08] MEDS: METOPROLOL TARTRATE 50 MG TAB PO SCH (20:26)
[2021-01-09 05:30] LABS: Hematocrit (blood only) 22.2 % (37-47); Hemoglobin 7.3 g/dL (12.0-16.0); Mean Corpuscular Hemoglobin 32.4 pg (25-34); Mean Corpuscular Hgb Conc 32.9 g/dL (32-36); Mean Corpuscular Volume 98.7 fL (80-100); Mean Platelet Volume 10.1 fL (7.4-10.4); Platelet Count 232 K/uL (130-400); RDW Standard Deviation 50.4 fL (36.4-46.3); Red Blood Count 2.25 M/uL (4.2-5.4)
[2021-01-09 06:08] LABS: Calcium 8.4 mg/dl (8.5-10.1); Creatinine Clr Calc Pharmacy 21.4 ml/min; Est GFR (African American) 31.5 ml/min; Est GFR (Non-African American) 27.2 ml/min; Potassium 3.6 mmol/L (3.5-5.1)
[2021-01-09] MEDS: levETIRAcetam 500 MG TAB PO SCH (07:49)
[2021-01-09] MEDS: METOPROLOL TARTRATE 50 MG TAB PO SCH (07:49)
[2021-01-09] MEDS: CLOPIDOGREL BISULFATE 75 MG TAB PO SCH (07:50)
[2021-01-09] MEDS: RANOLAZINE 500 MG ER TAB PO SCH (07:50)
[2021-01-09] MEDS: ASPIRIN 81 MG ECTAB PO SCH (07:50)
[2021-01-09] MEDS: ISOSORBIDE MONO EXTENDED REL 60 MG TABCR PO SCH (07:50)
[2021-01-09] MEDS: INSULIN ASPART 100 UNITS/ML 3 ML PEN SC SCH ×3 (07:51→16:08)
[2021-01-09] MEDS ORDERED: SODIUM CHLORIDE 0.9% 250 ML IV PRN (08:28)
--- NOTE | 2021-01-09 08:41 | Cardiology Progress Note ---
Date of Service January 09, 2021 Assessment & Plan (1) CAD (coronary artery disease): Plan: --post PCI with WAN to SVG to RCA 2. Extraperitoneal hematoma 3. Blood loss anemia 4. Paroxysmal AF 5. Liver mass 6. Acute on chronic renal insufficiency 7. Type 2 DM Looks well today. Hemodynamically and electrically stable. No signs of heart failure on exam. Abd/flank/pelvis soft. Access site unchanged. Renal function improving Echo unchanged Suspicion for ongoing bleeding low. Suspect drop in Hb in part dilutional. Continue to try and avoid additional procedures. With residual severe CAD, continued symptoms will transfuse. -- 1U PRBC this morning -- repeat H/H this afternoon. -- Increase imdur to 240mg daily. Continue current metoprolol, ranexa. -- Continue to hold xarelto -- Continue ASA/clopidogrel --Encouraged up out of bed, walking in [place]. stockings for DVT prophylaxis Home when H/H stable. Admission and Anticipated Discharge Date Admission Date: January 08, 2021 Subjective Dizziness with standing resolved. Some residual dyspnea with standing/going to bathroom but improved. No chest pain. Abdominal pain less, now more up towards LT "ribs." Urinating normally. No more "dark" bowel movements. Hb reported at 7.3 this morning. Creatinine back down to 1.7 I/O 1.7/0.3 Tele reviewed --AF with heart rates 70s to 80s at rest Review of Systems Review of Systems: All systems reviewed & are unremarkable except as noted in HPI & below Physical Exam Constitutional: no acute distress Eyes: + anicteric sclerae ENMT: Mallampati Class: II Respiratory: normal respiratory effort, lungs clear to auscultation Cardiovascular: Rate/Rhythm: + irregularly irregular Heart Sounds: no murmur Vessels: dorsalis pedis pulses present (distal extremities luke warm) Extremities: + edema (trivial RT >LT) Gastrointestinal (Abdomen): Percussion/Palpation: + abdomen tender (Bilateral pelvis left greater than right, no ecchymosis) and abdomen soft Skin: no rashes, warm and dry Psychiatric: A+Ox3, euthymic affect Results & Data ([facility]) Vital Signs (Past 12 Hours) Vital Signs Temp Pulse Resp BP BP Pulse Ox 01/09/21 08:00 97.7 F 74 16 113/74 99 01/09/21 04:00 97.9 F 72 16 111/50 L 99 01/08/21 23:39 97.5 F L 70 18 106/60 97 PG Care Time/CCT Total # of Minutes Spent Total Time Spent with Patient: Total time spent is greater than 50% in coordination of care (as documented) at patient's floor/unit and/or counseling patient: Coding Level of Care Code 94105 Subseq Hosp Care Lvl 3 Diagnoses CAD (coronary artery disease) I25.10 Coronary Disease-Associated Artery/Lesion type: [place] artery [place] vs. transplanted heart: [place] heart Associated angina: without angina (1) CAD (coronary artery disease) Coronary Disease-Associated Artery/Lesion type: [place] artery [place] vs. transplanted heart: [place] heart Associated angina: without angina Qualified Code(s): I25.10 - Atherosclerotic heart disease of [place] coronary artery without angina pectoris
[2021-01-09] MEDS: HEPARIN SOD 5,000 UNIT/0.5 ML VIAL SQ SCH (11:28)
--- NOTE | 2021-01-09 11:40 | Pharmacy Report ---
Pharmacy Glycemic Sign Off Nt - Date of Service January 09, 2021 - Assessment & Plan ASSESSMENT: * Pharmacy was consulted by Dr Celis on 01/07/21 for glycemic control and to write orders per [facility] inpatient glycemic control protocol. * Major changes made by pharmacy to antidiabetic regimen include: * Adding NovoLog scale ACHS with CF only * Patient has been receiving/requiring 0 units of insulin per day for adequate glycemic control * BSGs ranging 101-155 mg/dl * Regimen has only required minor adjustments over the past 48hrs to achieve this level of control * No diabetes at baseline based on A1c PLAN FOR INPATIENT GLYCEMIC CONTROL: No changes needed to current regimen. * No basal insulin needed * Continue NovoLog per scale ACHS/Q6hrs while NPO * Goal range = 110-150 mg/dl * CF = 25 mg/dl/unit * CR = N/A; not needed * Pharmacy is signing off of glycemic consult and will no longer be making adjustments to inpatient regimen. Please feel free to re-consult if needed. Thank you. DISCHARGE RECOMMENDATIONS: * A1c 5.6 % on 01/07/21 * This is NORMAL. No antidiabetic regimen needed at [place]
[2021-01-09 16:11] LABS: Hematocrit (blood only) 28.1 % (37-47); Hemoglobin 9.2 g/dL (12.0-16.0)
[2021-01-09] MEDS ORDERED: ISOSORBIDE MONO EXTENDED REL 60 MG TABCR PO SCH (21:00)
--- NOTE | 2021-01-11 00:03 | Discharge Summary ---
Date of Service January 10, 2021 Admission HPI Per Admitting Provider Mrs Quezaad is an 80-year-old female with a history of CAD s/p CABG x 1, Anomalous Circumflex Coronary Artery, Atrial Fibrillation, Atrial Flutter s/p DC CV (August 2020), CVA, Diabetes Mellitus, Dyslipidemia, Hypertension, Diastolic CHF, Mitral Regurgitation, REM Sleep Behavior Disorder, Sleep Apnea, and CKD. Patient with known severe distal SVG to RCA disease on prior cath 08/2020. Has had refractory CCS class III angina despite maximal medical therapy. Referred for PCI of SVG to RCA. Specialty Data Cardiology Cardiac cath/PCI 01/06/2021 1. 99% SVG to RCA stenosis just prior to anastomosis 2. 50-60% mid LAD stenosis at bifurcation with D2. 80% distal LAD stenosis. 3. Normal intracardiac filling pressure 4. Calcified 70-80% proximal right common iliac artery stenosis 5. Successful PCI of distal SVG to RCA with single drug-eluting stent (3.5 x 15 mm [place]). Discharge Data Consultations 01/06/21 13:41 Consult Cardiac Rehabilitation Routine Procedures Performed Operation Date: 01/06/21 11:00 Actual Procedures s Cath, Left w/Cors Vent Grafts - Marlo Celis MD p Drug Eluting Stent Bypass GR - Marlo Celis MD s Ultrasound Vascular Access - Marlo Celis MD s Cineradiography w/Routine Exam - Marlo Celis MD Hospital Course (1) CAD (coronary artery disease): --post PCI with WAN to SVG to RCA 2. Extraperitoneal hematoma 3. Blood loss anemia 4. Paroxysmal AF 5. Liver mass 6. Acute on chronic renal insufficiency 7. Type 2 DM On 01/06/2021 patient underwent repeat coronary angiography and eventual PCI to SVG to RCA with placement of a single drug-eluting stent to a 99% distal vein graft stenosis. Procedure completed via right common femoral artery due to nonpalpable radial pulses and small ulnar artery on prior right upper extremity angiography. Procedure made more complex by 80% proximal right common iliac artery stenosis. Following procedure admitted for planned observation overnight. On the night of hospital day 1 she developed new flank pain/tenderness and CT scan noted large extraperitoneal hematoma. Patient hemodynamically stable and with patient's comorbidities patient was managed conservatively. Hemoglobin dropped from admission of 11 down to 9 from hospital day 2, 3. She endorsed worsened dyspnea with minimal exertion. Echo was unchanged. Symptoms improved with restarting of home antianginal therapy. She has mild JASMINA with creatinine trending up from 1.7 up to 1.9 but improved with additional IV fluids. On hospital day 4 hemoglobin was down to 7.6 but still feeling well, hemodynamically electrically stable. Transfuse 1 unit with appropriate hemoglobin to 9.2. Patient up walking the halls without symptoms and was discharged home. Plan to continue DAPT with aspirin, clopidogrel the day following discharge. After that on Thursday 01/11 is to discontinue aspirin and resume prior Xarelto, along with clopidogrel for least 6 months. Follow-up H/H and creatinine next week. We will follow-up with cardiology sometime next week. Coding Level of Care Code D/C DAY MANAGEMENT <30 MINS Diagnoses CAD (coronary artery disease) I25.10 Coronary Disease-Associated Artery/Lesion type: [place] artery [place] vs. transplanted heart: [place] heart Associated angina: without angina
--- NOTE | 2021-01-19 16:13 | Coding Query ---
ANEMIA To promote full compliance with coding requirements relating to patient care, physician participation is requested in all cases of medical billing coder uncertainty. Please assist us with the question(s) below: Coding Question(s): The record reflects the following clinical findings:PT with extraperitoneal hematoma - progress notes document blood loss anemia. If these findings are indicative of anemia, please specify the known or suspected type by placing an "X" within the parenthesis (x). If other, please document type. Examples are: ( ) Acute blood loss anemia ( ) Acute Postoperative blood loss anemia ( ) Acute postoperative anemia due to dilutional fluids ( ) Chronic blood loss anemia ( ) Anemia of chronic disease ( ) Aplastic anemia ( ) Anemia due to renal disease ( ) Anemia in neoplastic disease ( ) Iron deficient anemia ( ) Anemia, unspecified or other ( ) Other: (please specify) (X ) Unable to determine Thank you INDU Gaines [facility]
--- NOTE | 2021-01-19 16:16 | Coding Query ---
CODING QUERY To promote full compliance with coding requirements relating to patient care, provider participation is requested in all cases of talcer uncertainty. Please assist us with the question(s) below: Coding Question(s): Pt admitted with CAD. Cardiac Cath done - . Progress notes document Extraperitoneal hematoma. Seeking to clarify the etiology of the extraperitoneal hematoma. Thanks for your help. Francisco Duenas [facility] Physician's Response(s): Bleeding Principal Diagnosis: "that condition established after study, to be chiefly responsible for occasioning the admission of the patient to the hospital for care." Co-Existing Principal Diagnosis: "when two or more diagnoses equally meet the criteria for principal diagnosis as determined by the circumstances of admission, diagnostic work up, and/or therapy provided, and the Alphabetic Index, Tabular List, or another coding guideline does not provide sequencing direction, any one of the diagnoses may be sequenced first." "When the physician has documented what appears to be a current diagnosis in the body of the record, but has not included the diagnosis in the final diagnostic statement, the physician should be asked whether the diagnosis should be added." ([facility] 2 QTR90. p3-4) ROMAN
--- NOTE | 2021-03-02 06:02 | Coding Query ---
CODING QUERY To promote full compliance with coding requirements relating to patient care, provider participation is requested in all cases of proofer prepress uncertainty. Please assist us with the question(s) below: Coding Question(s): Patient with CAD of SVG. Cardiac Cath with successful PCS of the distal SVG to RCA. Progress note 01/07 documents extraperitoneal hematoma. Please check below the phrase that applies to the extraperitoneal hematoma. Thanks for your help. Francisco Duenas [facility] Physician's Response(s): The extraperitoneal hematoma is not a complication of the cardiac cath /PCI procedure The extraperitoneal hematoma is a complication of the cardiac cath / PCI procedure __1 Cannot clinically correlate if the extraperitoneal hematoma is a complication of the cardiac cath/PCI procedures Other: Please document: Principal Diagnosis: "that condition established after study, to be chiefly responsible for occasioning the admission of the patient to the hospital for care." Co-Existing Principal Diagnosis: "when two or more diagnoses equally meet the criteria for principal diagnosis as determined by the circumstances of admission, diagnostic work up, and/or therapy provided, and the Alphabetic Index, Tabular List, or another coding guideline does not provide sequencing direction, any one of the diagnoses may be sequenced first." "When the physician has documented what appears to be a current diagnosis in the body of the record, but has not included the diagnosis in the final diagnostic statement, the physician should be asked whether the diagnosis should be added." (Source [facility]oding [facility] 2 QTR90. p3-4) ROMAN
== END 2021-01-09 18:59 | disposition home or self-care (01) | DRG 247 ==
LOC: 1E 10:04 → CC 10:04 → INTOOBSV 13:37
DX: Z95.1 Presence of aortocoronary bypass graft; R06.00 Dyspnea, unspecified; N18.30 Chronic kidney disease, stage 3 unspecified; Z01.812 Encounter for preprocedural laboratory examination; E11.9 Type 2 diabetes mellitus without complications; E78.5 Hyperlipidemia, unspecified; N17.9 Acute kidney failure, unspecified; K76.9 Liver disease, unspecified; I13.0 Hypertensive heart and chronic kidney disease with heart failure and stage 1 through stage 4 chronic kidney disease, or unspecified chronic kidney disease; I25.2 Old myocardial infarction; D50.0 Iron deficiency anemia secondary to blood loss (chronic); M79.81 Nontraumatic hematoma of soft tissue; I50.30 Unspecified diastolic (congestive) heart failure; I27.20 Pulmonary hypertension, unspecified; I70.8 Atherosclerosis of other arteries; I77.1 Stricture of artery; K21.9 Gastro-esophageal reflux disease without esophagitis; I34.0 Nonrheumatic mitral (valve) insufficiency; Q24.5 Malformation of coronary vessels; I48.92 Unspecified atrial flutter; Z87.891 Personal history of nicotine dependence; I48.0 Paroxysmal atrial fibrillation; I25.719 Atherosclerosis of autologous vein coronary artery bypass graft(s) with unspecified angina pectoris; Z20.822 Contact with and (suspected) exposure to COVID-19

== ENCOUNTER 2021-03-02 12:54 | Inpatient (IN) ==
[2021-03-02] MEDS ORDERED: SODIUM CHLORIDE 0.9% 1000ML 1,000 ML IV ONE (14:05)
--- NOTE | 2021-03-02 14:10 | Emergency Department Note ---
Impression & Plan Chest pain, Liver mass, Diarrhea, A-fib, Weakness ED Provider Note NAME: ISIDRO GRAY AGE: 80 SEX: F : 1940 ARRIVES VIA: Ambulance INFORMANT: Patient ED PROVIDER(S): Yovani Vogt DO CHIEF COMPLAINT: Weakness HPI: Patient is an 80-year-old female who presents to the ER for lower abdominal pain which has been present for several months. She notes she has a new diagnosis of liver cancer. She follows with [facility] and they were going to perform surgery but with her heart they elected not to. She followed up with hematology/oncology at [facility]. They are not performing any chemo or radiation at this time. She notes that anytime she eats anything she gets immediate diarrhea and goes about 3-4 times. She ate on Monday and Monday but has not eaten since then. She is able to drink without any difficulty. Denies any dysuria, urgency, or frequency. She denies any new chest pain or shortness of breath. She admits to pain on the right side her chest which has been present since this October when she was diagnosed with the cancer. She notes it is nonexertional. It is constant at all times. She does take Xarelto and has not missed any doses. Per patient chronically on 4 L nasal cannula. Patient does have a history of pancreatic neoplasm with a Whipple done in 2002. ROS: See above HPI for pertinent positives & negatives. A total of 10 systems reviewed and were otherwise negative. PAST MEDICAL HISTORY:See Below PAST SURGICAL HISTORY:See Below FAMILY HISTORY:See Below SOCIAL HISTORY:See Below HOME MEDICATIONS:See Below ALLERGIES:See Below VITALS:See Below PHYSICAL EXAMINATION: GENERAL: Sitting up in bed, alert, chronically ill-appearing, disheveled EYE EXAM: normal conjunctiva. PERRL and EOM's grossly intact. OROPHARYNX: no exudate, no erythema, lips, buccal mucosa, and tongue normal and mucous membranes are moist NECK: supple, no nuchal rigidity, no adenopathy, non-tender LUNGS: Clear to auscultation. Normal chest wall mechanics HEART: no murmurs, S1 normal and S2 normal ABDOMEN: abdomen soft, tender throughout lower abdomen, normo-active bowel sounds, no masses, no rebound or guarding. UPPER EXTREMITIES: upper extremities are grossly normal. LOWER EXTREMITIES: No pitting edema. NEURO EXAM: Normal sensorium, cranial nerves II-XII grossly intact, normal speech, no gross weakness of arms, no gross weakness of legs. MEDICAL DECISION MAKING: Patient is an 80-year-old female who presents ER for above-stated complaint. IV was established blood work was obtained. Chronically on 3 to 4 L nasal cannula. She has not missed any doses of her Eliquis. Labs show no significant leukocytosis but a mild anemia 11,000. INR was unremarkable. BMP with a CO2 of 19 and creatinine 1.9 fairly consistent with previous. Troponin was detectable but not positive. UA contaminated. CT abdomen pelvis showed no acute pathology. Patient was given IV fluids. She was updated bedside. She is havi ng a significant amount of trouble getting around at home. She cannot leave her bed. She was discussed with hospitalist for further observation. Triage Nursing notes reviewed. Limited review of prior medical records performed Vital Signs: reviewed and remarkable for no significant abnormalities Differential diagnosis: Differential diagnoses includes but is not limited to gastritis, peptic ulcer disease, GERD, gallbladder disease, pancreatitis, small bowel obstruction, acute coronary syndrome, pericarditis, ischemic bowel, irritable bowel disease, irritable bowel syndrome, appendicitis, diverticulitis, malignancy, hernia, urinary tract infection, torsion, perforation, trauma, infectious. ER treatment provided: See below Diagnostics interpreted by me: ECG: A. fib rate 87 Normal axis No PVCs Right bundle branch block T wave inversion anterior and lateral leads QTC 469 Cardiac Monitoring: An order was placed for continuous cardiac monitoring. The monitor shows a rate of 80 with afib rhythm. Laboratory studies: As stated above and show below. Imaging studies: CT abdomen pelvis showed no acute pathology Consultation(s): Discussed with hospitalist Reynold Austin for further evaluation Procedures: none Past Med/Surg History Medical History Atrial fibrillation by electrocardiography Benign essential tremor CAD (coronary artery disease) CABG x 1 vessel 2016 Cerebellar infarct Follows with neuro= "Prior cerebellar stroke without residual deficits" - continue ASA and statin Chronic diastolic congestive heart failure Chronic dyspnea Chronic hypoxemic respiratory failure Chronic kidney disease (CKD), stage III (moderate) Chronic low back pain Copper deficiency Corneal dystrophy Diabetes Family history of reaction to anesthesia SISTER - HIVES, N/V GERD (gastroesophageal reflux disease) History of cardioversion 1978 & AUGUST 2020 History of CA (myocardial infarction) 1978 History of vertigo Hyperlipemia Hypertension Intrahepatic cholangiocarcinoma Liver cancer DX JULY 2020 - [facility] Liver mass Macular degeneration Mitral regurgitation Mild to moderate per 2019 ECHO Multiple pulmonary nodules determined by computed tomography of lung Osteoporosis with fracture fx ribs from falling, NO CURRENT FRACTURES Pancreatic tumor had surgery removal of head Paroxysmal atrial fibrillation On Xarelto , DX 2018 - HX CARDIOVERSION AUGUST 2020 Peripheral neuropathy Pulmonary hypertension PASP 30-40mmHg Pulmonary nodule monitored yearly Sleep apnea Spondylosis Temporal lobe epilepsy Follows with neuro Started on Keppra in Spring 2019 with no further events since that time Continue Keppra per 08/10/20 neuro note Surgical History Gastric bypass status for obesity H/O cataract extraction right H/O ovarian cystectomy H/O thumb surgery left and right History of appendectomy History of breast biopsy several both sides History of corneal transplant right eye History of ear surgery 1967, LEFT History of resection of pancreas head of pancreas removed History of total right hip replacement History of transmyocardial revascularization Hx of cardiac cath 2016 S/P CABG (coronary artery bypass graft) 2015 S/P carpal tunnel release S/P cholecystectomy S/P tonsillectomy and adenoidectomy S/P trigger finger release pt not sure if had surgery for Family History Sister Breast cancer 2 sisters Diabetes 2 sisters Heart disease Cancer 2 sisters Father Myocardial infarction Heart disease Hypertension Brother Myocardial infarction Diabetes Heart disease 2 brothers Hypertension Mother Non-Hodgkin lymphoma Stroke Cancer Grandfather Diabetes Heart disease Denies family history of Ovarian cancer Prostate cancer Colorectal cancer Social History Smoking Status: Former smoker Age Started Using Tobacco: 16; Age Quit Using Tobacco: 50; packs per day: 1.5; Cigarettes Per Day: 30; Second Hand Exposure: Yes; Hx Alcohol Use: Yes Alcohol type: wine Hx Substance Use: No Preferred Language: Belarusian Communication Ability: Effective Visual Impairment: Limited Hearing Ability: Normal Sap Architect Required: No Beliefs That Will Affect Care: None marital status: / Current Living Situation: Alone current occupational status: retired Feels Safe at Home: Yes Childhood Exposure to Second-Hand Smoke: No Dental Care, Regularly: Yes Physical Activity Frequency: Does not Exercise Seatbelt Use: always Assistive Devices: None Allergies Allergies Allergy/AdvReac Type Severity Reaction Status Date / Time banana Allergy Unknown HIVES/ITCHI Verified 03/02/21 17:09 NG Iodinated Contrast Media Allergy Unknown "CONTRAST"- Verified 03/02/21 17:09 HIVES/ITCHI NG povidone-iodine Allergy Unknown "drops for Verified 03/02/21 17:09 [From Betadine] eye before injection" - fox/vision trouble soap [From Betadine] Allergy Unknown "drops for Verified 03/02/21 17:09 eye before injection" - fox/vision trouble Home Meds Home Medications Medication Instructions Recorded Confirmed prednisolone acetate 1 % eye 1 drops OPR QAM ml 02/12/19 03/02/21 drops,suspension (Pred Forte) vitamins A,C,U-gwnd-pywgow 7,160 2 tab PO BIDM 07/03/19 03/02/21 unit-113 mg-100 unit tablet (PreserVision AREDS) blood sugar diagnostic (OneTouch #10 ea 08/02/19 02/24/21 Verio test strips) zoledronic acid 5 mg/100 mL in 5 mg IV .every other year ml 03/09/20 03/02/21 mannitol 5 %-water intravenous piggybck (Reclast) copper gluconate 5 mg PO QPM 05/06/20 03/02/21 mecobalamin (vitamin B12) 1 dose UD 05/06/20 03/02/21 potassium chloride 8 mEq 16 meq PO QAM 09/08/20 03/02/21 tablet,extended release biotin 1,000 mcg chewable tablet 1,000 mcg PO DAILY 12/09/20 03/02/21 epinephrine 0.3 mg/0.3 mL 0.3 mg IM UD PRN 12/09/20 03/02/21 injection, auto-injector rivaroxaban 20 mg tablet (Xarelto) 20 mg PO QPM 12/09/20 03/02/21 ubrogepant 100 mg tablet (Ubrelvy) 100 mg PO UD PRN 12/09/20 03/02/21 metoprolol succinate 200 mg 200 mg PO UD tab 02/24/21 03/02/21 tablet,extended release 24 hr digoxin 125 mcg (0.125 mg) tablet 125 mcg PO Q2D 03/02/21 03/02/21 Previous Rx's Medication Instructions Recorded OneTouch Verio Flex meter #1 ea NS 08/13/19 (blood-glucose meter) furosemide 40 mg tablet (Lasix) 40 mg PO QAM #90 tab 03/09/20 gabapentin 300 mg capsule 900 mg PO HS 90 Days #270 cap 08/26/20 levetiracetam 500 mg tablet 500 mg PO BID 90 Days #180 tab 08/26/20 (Keppra) atorvastatin 40 mg tablet (Lipitor) 40 mg PO HS #90 tab 08/28/20 calcitriol 0.25 mcg capsule 0.25 mcg PO MOWEFR #36 cap 09/17/20 ranolazine 500 mg tablet,extended 500 mg PO BID #60 tab 10/28/20 release,12 hr (Ranexa) nitroglycerin 0.4 mg sublingual 0.4 mg SUBLINGUAL UD PRN #25 tab 01/04/21 tablet clopidogrel 75 mg tablet 75 mg PO QAM #30 tab 01/09/21 isosorbide mononitrate 120 mg 240 mg PO QAM #180 tab 01/20/21 tablet,extended release 24 hr Portable Oxygen #1 ea 02/18/21 Results & Data (ED) Vital Signs Vital Signs - 24 hr 03/02/21 13:05 03/02/21 13:30 03/02/21 13:39 Temperature 36.5 C Temperature Source Oral Pulse Rate 103 H 90 92 H Pulse Rate [Apical] Pulse Rate from SpO2 Sensor Respiratory Rate 16 13 18 Respiratory Effort / Characteristics Respiratory Depth Normal Blood Pressure 125/90 133/65 133/65 Blood Pressure [Left Arm] Blood Pressure Mean 101 87 87 Blood Pressure Mean [Left Arm] Pulse Oximetry 95 93 Oxygen Delivery Method Room Air Oxygen Flow Rate Sepsis Recent Fever Within 48 Hours No Sepsis New/Unexplained Change in Mental Status N/A Sepsis Action Taken by Nursing No Action Required 03/02/21 14:30 03/02/21 15:16 03/02/21 15:30 Temperature Temperature Source Pulse Rate 102 H 89 95 H Pulse Rate [Apical] Pulse Rate from SpO2 Sensor 107 H Respiratory Rate 14 15 14 Respiratory Effort / Characteristics Respiratory Depth Blood Pressure 152/82 H 129/97 139/83 Blood Pressure [Left Arm] Blood Pressure Mean 105 107 101 Blood Pressure Mean [Left Arm] Pulse Oximetry 100 100 Oxygen Delivery Method Nasal Cannula Oxygen Flow Rate 3 Sepsis Recent Fever Within 48 Hours Sepsis New/Unexplained Change in Mental Status Sepsis Action Taken by Nursing 03/02/21 16:01 03/02/21 16:31 03/02/21 17:02 Temperature Temperature Source Pulse Rate 78 90 83 Pulse Rate [Apical] Pulse Rate from SpO2 Sensor 88 106 H 93 H Respiratory Rate 14 12 22 Respiratory Effort / Characteristics Respiratory Depth Blood Pressure 137/72 116/75 Blood Pressure [Left Arm] Blood Pressure Mean 93 88 Blood Pressure Mean [Left Arm] Pulse Oximetry 100 100 100 Oxygen Delivery Method Oxygen Flow Rate Sepsis Recent Fever Within 48 Hours Sepsis New/Unexplained Change in Mental Status Sepsis Action Taken by Nursing 03/02/21 17:10 03/02/21 17:20 03/02/21 17:30 Temperature Temperature Source Pulse Rate 79 84 75 Pulse Rate [Apical] Pulse Rate from SpO2 Sensor 105 H 100 H 103 H Respiratory Rate 22 18 21 Respiratory Effort / Characteristics Respiratory Depth Blood Pressure Blood Pressure [Left Arm] Blood Pressure Mean Blood Pressure Mean [Left Arm] Pulse Oximetry 100 100 100 Oxygen Delivery Method Oxygen Flow Rate Sepsis Recent Fever Within 48 Hours Sepsis New/Unexplained Change in Mental Status Sepsis Action Taken by Nursing 03/02/21 18:00 03/02/21 18:31 03/02/21 19:01 Temperature Temperature Source Pulse Rate 89 105 H Pulse Rate [Apical] 71 Pulse Rate from SpO2 Sensor 82 111 H Respiratory Rate 17 20 18 Respiratory Effort / Characteristics Non-Labored Respiratory Depth Blood Pressure 118/96 135/83 Blood Pressure [Left Arm] 130/90 Blood Pressure Mean 103 100 Blood Pressure Mean [Left Arm] 103 Pulse Oximetry 100 100 100 Oxygen Delivery Method Nasal Cannula Oxygen Flow Rate 3 Sepsis Recent Fever Within 48 Hours Sepsis New/Unexplained Change in Mental Status Sepsis Action Taken by Nursing Laboratory Data Result diagrams: 03/02/21 14:59 03/02/21 14:59 Lab Results 03/02/21 03/02/21 03/02/21 Range/Units 14:40 14:59 14:59 WBC 7.58 (4.8-10.8) K/uL RBC 3.46 L (4.2-5.4) M/uL Hgb 11.2 L (12.0-16.0) g/dL Hct 35.4 L (37-47) % MCV 102.3 H (80-100) fL MCH 32.4 (25-34) pg MCHC 31.6 L (32-36) g/dL RDW Std Deviation 47.8 H (36.4-46.3) fL RDW Coeff of Argenis 12.9 (11.5-14.5) % Plt Count 248 (130-400) K/uL MPV 9.7 (7.4-10.4) fL Immature Gran % (Auto) 0.8 % Neut % (Auto) 74.7 % Lymph % (Auto) 14.2 % Daggett % (Auto) 9.5 % Eos % (Auto) 0.5 % Baso % (Auto) 0.3 % Neut # (Auto) 5.66 (1.4-6.5) K/uL Lymph # (Auto) 1.08 L (1.2-3.4) K/uL Daggett # (Auto) 0.72 H (0.11-0.59) K/uL Eos # (Auto) 0.04 (0-0.5) K/uL Baso # (Auto) 0.02 (0-0.2) K/uL Immature Gran # (Auto) 0.06 H (0.00-0.02) K/uL PT (9.0-12.0) Seconds INR (0.9-1.1) Sodium 139 (136-145) mmol/L Potassium 4.7 (3.5-5.1) mmol/L Chloride 109 H (98-107) mmol/L Carbon Dioxide 19 L (21-32) mmol/L Anion Gap 11.0 (3-11) BUN 42 H (7-18) mg/dl Creatinine 1.93 H (0.6-1.2) mg/dl Est Cr Clr Drug Dosing 17.3 ml/min Est GFR ( Amer) 27.6 ml/min Est GFR (Non-Af Amer) 23.8 ml/min BUN/Creatinine Ratio 21.7 H (10-20) Glucose 76 (70-99) mg/dl POC Glucose (70-99) mg/dl Calcium 9.9 (8.5-10.1) mg/dl Total Bilirubin 0.7 (0.2-1) mg/dl AST 34 (15-37) U/L ALT 32 (12-78) U/L Alkaline Phosphatase 98 (45-117) U/L Ammonia (11-32) umol/L Troponin I 0.020 (0-0.045) ng/ml Total Protein 7.9 (6.4-8.2) gm/dl Albumin 3.7 (3.4-5.0) gm/dl Globulin 4.2 H (2.5-4.0) gm/dl Albumin/Globulin Ratio 0.9 (0.9-2) Lipase 182 (73-393) U/L Urine Color Dark Yellow Urine Appearance Clear (Clear) Urine pH 5.0 (4.5-7.5) Ur Specific Grindstone 1.015 (1.000-1.030) Urine Protein Negative (Negative) Urine Glucose (UA) Negative (Negative) Urine Ketones Trace H (Negative) Urine Blood Negative (Negative) Urine Nitrite Negative (Negative) Urine Bilirubin Negative (Negative) Urine Urobilinogen Negative (Negative) Ur Leukocyte Esterase 2+ H (Negative) Urine WBC (Auto) 10-30 H (0-5) /hpf Urine RBC (Auto) 0-4 (0-4) /hpf U Hyaline Cast (Auto) 1-5 (0-5) /lpf U Epithel Cells (Auto) >30 H (0-5) /lpf Urine Bacteria (Auto) Negative (Negative) COVID-19 Eval Order SARS-CoV-2 (PCR) (Negative) 03/02/21 03/02/21 03/02/21 Range/Units 14:59 14:59 17:10 WBC (4.8-10.8) K/uL RBC (4.2-5.4) M/uL Hgb (12.0-16.0) g/dL Hct (37-47) % MCV (80-100) fL MCH (25-34) pg MCHC (32-36) g/dL RDW Std Deviation (36.4-46.3) fL RDW Coeff of Argenis (11.5-14.5) % Plt Count (130-400) K/uL MPV (7.4-10.4) fL Immature Gran % (Auto) % Neut % (Auto) % Lymph % (Auto) % Daggett % (Auto) % Eos % (Auto) % Baso % (Auto) % Neut # (Auto) (1.4-6.5) K/uL Lymph # (Auto) (1.2-3.4) K/uL Daggett # (Auto) (0.11-0.59) K/uL Eos # (Auto) (0-0.5) K/uL Baso # (Auto) (0-0.2) K/uL Immature Gran # (Auto) (0.00-0.02) K/uL PT 11.3 (9.0-12.0) Seconds INR 1.1 (0.9-1.1) Sodium (136-145) mmol/L Potassium (3.5-5.1) mmol/L Chloride (98-107) mmol/L Carbon Dioxide (21-32) mmol/L Anion Gap (3-11) BUN (7-18) mg/dl Creatinine (0.6-1.2) mg/dl Est Cr Clr Drug Dosing ml/min Est GFR ( Amer) ml/min Est GFR (Non-Af Amer) ml/min BUN/Creatinine Ratio (10-20) Glucose (70-99) mg/dl POC Glucose (70-99) mg/dl Calcium (8.5-10.1) mg/dl Total Bilirubin (0.2-1) mg/dl AST (15-37) U/L ALT (12-78) U/L Alkaline Phosphatase (45-117) U/L Ammonia < 10.0 L (11-32) umol/L Troponin I (0-0.045) ng/ml Total Protein (6.4-8.2) gm/dl Albumin (3.4-5.0) gm/dl Globulin (2.5-4.0) gm/dl Albumin/Globulin Ratio (0.9-2) Lipase (73-393) U/L Urine Color Urine Appearance (Clear) Urine pH (4.5-7.5) Ur Specific Grindstone (1.000-1.030) Urine Protein (Negative) Urine Glucose (UA) (Negative) Urine Ketones (Negative) Urine Blood (Negative) Urine Nitrite (Negative) Urine Bilirubin (Negative) Urine Urobilinogen (Negative) Ur Leukocyte Esterase (Negative) Urine WBC (Auto) (0-5) /hpf Urine RBC (Auto) (0-4) /hpf U Hyaline Cast (Auto) (0-5) /lpf U Epithel Cells (Auto) (0-5) /lpf Urine Bacteria (Auto) (Negative) COVID-19 Eval Order Covid19 at [facility] SARS-CoV-2 (PCR) (Negative) 03/02/21 03/02/21 03/02/21 Range/Units 17:10 18:13 18:22 WBC (4.8-10.8) K/uL RBC (4.2-5.4) M/uL Hgb (12.0-16.0) g/dL Hct (37-47) % MCV (80-100) fL MCH (25-34) pg MCHC (32-36) g/dL RDW Std Deviation (36.4-46.3) fL RDW Coeff of Argenis (11.5-14.5) % Plt Count (130-400) K/uL MPV (7.4-10.4) fL Immature Gran % (Auto) % Neut % (Auto) % Lymph % (Auto) % Daggett % (Auto) % Eos % (Auto) % Baso % (Auto) % Neut # (Auto) (1.4-6.5) K/uL Lymph # (Auto) (1.2-3.4) K/uL Daggett # (Auto) (0.11-0.59) K/uL Eos # (Auto) (0-0.5) K/uL Baso # (Auto) (0-0.2) K/uL Immature Gran # (Auto) (0.00-0.02) K/uL PT (9.0-12.0) Seconds INR (0.9-1.1) Sodium (136-145) mmol/L Potassium (3.5-5.1) mmol/L Chloride (98-107) mmol/L Carbon Dioxide (21-32) mmol/L Anion Gap (3-11) BUN (7-18) mg/dl Creatinine (0.6-1.2) mg/dl Est Cr Clr Drug Dosing ml/min Est GFR ( Amer) ml/min Est GFR (Non-Af Amer) ml/min BUN/Creatinine Ratio (10-20) Glucose (70-99) mg/dl POC Glucose 43 L* 39 L* (70-99) mg/dl Calcium (8.5-10.1) mg/dl Total Bilirubin (0.2-1) mg/dl AST (15-37) U/L ALT (12-78) U/L Alkaline Phosphatase (45-117) U/L Ammonia (11-32) umol/L Troponin I (0-0.045) ng/ml Total Protein (6.4-8.2) gm/dl Albumin (3.4-5.0) gm/dl Globulin (2.5-4.0) gm/dl Albumin/Globulin Ratio (0.9-2) Lipase (73-393) U/L Urine Color Urine Appearance (Clear) Urine pH (4.5-7.5) Ur Specific [place] (1.000-1.030) Urine Protein (Negative) Urine Glucose (UA) (Negative) Urine Ketones (Negative) Urine Blood (Negative) Urine Nitrite (Negative) Urine Bilirubin (Negative) Urine Urobilinogen (Negative) Ur Leukocyte Esterase (Negative) Urine WBC (Auto) (0-5) /hpf Urine RBC (Auto) (0-4) /hpf U Hyaline Cast (Auto) (0-5) /lpf U Epithel Cells (Auto) (0-5) /lpf Urine Bacteria (Auto) (Negative) COVID-19 Eval Order SARS-CoV-2 (PCR) NEGATIVE (Negative) 03/02/21 Range/Units 18:42 WBC (4.8-10.8) K/uL RBC (4.2-5.4) M/uL Hgb (12.0-16.0) g/dL Hct (37-47) % MCV (80-100) fL MCH (25-34) pg MCHC (32-36) g/dL RDW Std Deviation (36.4-46.3) fL RDW Coeff of Argenis (11.5-14.5) % Plt Count (130-400) K/uL MPV (7.4-10.4) fL Immature Gran % (Auto) % Neut % (Auto) % Lymph % (Auto) % Daggett % (Auto) % Eos % (Auto) % Baso % (Auto) % Neut # (Auto) (1.4-6.5) K/uL Lymph # (Auto) (1.2-3.4) K/uL Daggett # (Auto) (0.11-0.59) K/uL Eos # (Auto) (0-0.5) K/uL Baso # (Auto) (0-0.2) K/uL Immature Gran # (Auto) (0.00-0.02) K/uL PT (9.0-12.0) Seconds INR (0.9-1.1) Sodium (136-145) mmol/L Potassium (3.5-5.1) mmol/L Chloride (98-107) mmol/L Carbon Dioxide (21-32) mmol/L Anion Gap (3-11) BUN (7-18) mg/dl Creatinine (0.6-1.2) mg/dl Est Cr Clr Drug Dosing ml/min Est GFR ( Amer) ml/min Est GFR (Non-Af Amer) ml/min BUN/Creatinine Ratio (10-20) Glucose (70-99) mg/dl POC Glucose 141 H (70-99) mg/dl Calcium (8.5-10.1) mg/dl Total Bilirubin (0.2-1) mg/dl AST (15-37) U/L ALT (12-78) U/L Alkaline Phosphatase (45-117) U/L Ammonia (11-32) umol/L Troponin I (0-0.045) ng/ml Total Protein (6.4-8.2) gm/dl Albumin (3.4-5.0) gm/dl Globulin (2.5-4.0) gm/dl Albumin/Globulin Ratio (0.9-2) Lipase (73-393) U/L Urine Color Urine Appearance (Clear) Urine pH (4.5-7.5) Ur Specific [place] (1.000-1.030) Urine Protein (Negative) Urine Glucose (UA) (Negative) Urine Ketones (Negative) Urine Blood (Negative) Urine Nitrite (Negative) Urine Bilirubin (Negative) Urine Urobilinogen (Negative) Ur Leukocyte Esterase (Negative) Urine WBC (Auto) (0-5) /hpf Urine RBC (Auto) (0-4) /hpf U Hyaline Cast (Auto) (0-5) /lpf U Epithel Cells (Auto) (0-5) /lpf Urine Bacteria (Auto) (Negative) COVID-19 Eval Order SARS-CoV-2 (PCR) (Negative) Administered Medications Dextrose (Dextrose 50% 50 Ml Syringe) 25 - 50 ml IV UD PRN; Protocol PRN Reason: Hypoglycemia Protocol Stop: 04/01/21 18:16 Last Admin: 03/02/21 18:24 Dose: 50 ml Documented by: [id number] Dextrose/Lactated Ringer's (D5w And Lactated Ringers) 1,000 mls @ 85 mls/hr IV .[id number] ONE Stop: 03/03/21 05:49 Last Admin: 03/02/21 18:26 Dose: 85 mls/hr Documented by: [id number] Discontinued Medications Sodium Chloride (Nss 1000ml) 1,000 mls @ 999 mls/hr IV .[id number] ONE Stop: 03/02/21 15:05 Last Infusion: 03/02/21 16:03 Dose: 0 mls/hr Documented by: [id number] Admin: 03/02/21 14:36 Dose: 999 mls/hr Documented by: [id number] Imaging Data Radiologist's Impression: Abdomen/Pelvis CT 03/02/21 14:05 CT abd pelvis wo con CLINICAL INDICATION: Lower back pain, known liver cancer.. TECHNIQUE: Helical axial images of the abdomen and pelvis were obtained. Automated dose lowering techniques and/or adjustment according to patient size were utilized for this exam. This exam was performed without intravenous contrast. COMPARISON: Comparison is made to CT abdomen and pelvis 04/17/2021 FINDINGS: Lower chest: Atelectasis is seen in the left lung. There is a 6 mm nodular density in the lingula which is unchanged. Liver: Unremarkable. No focal lesions are seen. Gallbladder and biliary tree: Patient is status post cholecystectomy. No intra- or extrahepatic biliary ductal dilation. Pancreas: Unremarkable, no focal lesions. Spleen: Unremarkable. 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 Kidneys and ureters: Poorly defined 5 mm exophytic hyperdensity arising from the right kidney inferior pole may represent a proteinaceous or hemorrhagic cyst. Nonobstructive nephrolithiasis is seen on the left. Bladder: Unremarkable. Reproductive organs: A calcified fibroid is incidentally noted. Bowel: Diverticulosis is seen without evidence of diverticulitis. The appendix is not seen. Postsurgical changes are seen in the lower esophagus and stomach with a large hiatal hernia noted in this patient with history of gastrectomy and gastrojejunostomy. Lymph nodes Retroperitoneal: Unremarkable. Mesenteric: Unremarkable. Pelvic: Unremarkable. Peritoneum: Normal Vessels: Atherosclerotic calcifications are seen. Abdominal wall: Postsurgical changes are seen in the abdominal wall. Bones: Patient is status post right total hip arthroplasty. 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 IMPRESSION: 1. No evidence of acute abnormality to explain patient's back pain. There is a chronic compression fracture of L1. 2. Additional findings as above. ACT 112: Negative or not required by law. Electronically signed by: Kan Leon M.D. 03/02/2021 3:02 PM Chest X-Ray 03/02/21 14:05 XR chest 1V portable HISTORY: 80 years-old Female weak acute weakness COMPARISON: Chest radiographs 02/11/2021 TECHNIQUE: Portable AP view of the chest FINDINGS: Cardiomediastinal and hilar silhouettes are within normal limits. Prior median sternotomy. Calcified plaque the thoracic aorta. The patient is slightly rotated towards the left. No pneumothorax, pleural effusion or overt pulmonary edema. Ill-defined left lung base opacity is likely secondary to summation density. Mild chronic interstitial coarsening. Degenerative changes of the shoulders and spine. IMPRESSION: No acute process. ACT 112: Negative or not required by law. The above report was generated using voice recognition software. It may contain grammatical, syntax or spelling errors. Electronically signed by: Kian Scales M.D. 03/02/2021 3:21 PM Discharge Plan Visit Data Chief Complaint: Illness Stated Complaint: ILLNESS ED Provider: Yovani Vogt Discharge Problem: Chest pain, Liver mass, Diarrhea, A-fib, Weakness Forms Stand Alone Forms: [facility] Prescriptions Prescriptions: No Action (DME) blood-glucose meter [OneTouch Verio Flex meter] Misc See Rx Instructions .ROUTE .MEDSUPPLY Qty: 1 RF: 0 furosemide [Lasix] 40 mg tablet 40 mg PO QAM Qty: 90 RF: 3 gabapentin 300 mg capsule 900 mg PO HS 90 Days Qty: 270 RF: 1 levetiracetam [Keppra] 500 mg tablet 500 mg PO BID 90 Days Qty: 180 RF: 1 atorvastatin [Lipitor] 40 mg tablet 40 mg PO HS Qty: 90 RF: 3 calcitriol 0.25 mcg capsule 0.25 mcg PO MOWEFR Qty: 36 RF: 3 nitroglycerin 0.4 mg tablet, sublingual 0.4 mg sublingual UD PRN (Reason: Chest Pain) Qty: 25 RF: 5 zoledronic dexh-ndyqzwmj-uzmne [Reclast] 5 mg/100 mL piggyback 5 mg IV .every other year RF: 0 (DME) Portable Oxygen Misc See Rx Instructions .Route Qty: 1 RF: 0 metoprolol succinate 200 mg tablet extended release 24 hr 200 mg PO UD RF: 0 (DME) OneTouch Verio test strips Strip See Rx Instructions .ROUTE .MEDSUPPLY Qty: 10 RF: 0 ranolazine [Ranexa] 500 mg tablet extended release 12 hr 500 mg PO BID Qty: 60 RF: 5 isosorbide mononitrate 120 mg tablet extended release 24 hr 240 mg PO QAM Qty: 180 RF: 3 copper gluconate 5 mg PO QPM RF: 0 mecobalamin (vitamin B12) 1 dose UD RF: 0 prednisolone acetate [Pred Forte] 1 % drops,suspension 1 drops OPR QAM RF: 0 PreserVision AREDS [id number] [id number]-ot-luli Tablet 2 tab PO BIDM RF: 0 potassium chloride 8 mEq tablet extended release 16 meq PO QAM RF: 0 biotin 1,000 mcg Tablet,Chewable 1,000 mcg PO DAILY RF: 0 epinephrine 0.3 mg/0.3 mL auto-injector 0.3 mg IM UD PRN (Reason: anaphylaxis) RF: 0 Xarelto 20 mg tablet 20 mg PO QPM RF: 0 Ubrelvy 100 mg tablet 100 mg PO UD PRN (Reason: migraine headache) RF: 0 clopidogrel 75 mg Tablet 75 mg PO QAM Qty: 30 RF: 6 digoxin 125 mcg (0.125 mg) tablet 125 mcg PO Q2D RF: 0 Referrals Referrals: Jocelynn Mauricio MD [Primary Care Provider] - Discharge Problem: Chest pain Qualifiers: Chest pain type: unspecified Qualified Code(s): R07.9 - Chest pain, unspecified Diarrhea Qualifiers: Diarrhea type: unspecified type Qualified Code(s): R19.7 - Diarrhea, unspec ified A-fib Qualifiers: Atrial fibrillation type: unspecified Qualified Code(s): I48.91 - Unspecified atrial fibrillation
[2021-03-02 15:00] LABS: Appearance Urine Clear (Clear); Bacteria Urine Automated Negative (Negative); Bilirubin Urine Negative (Negative); Blood Urine Negative (Negative); Color Urine Dark Yellow; Epithelial Cell Urine Auto >30 /lpf (0-5); Glucose Urine UA Negative (Negative); Ketones Urine Trace (Negative); Leukocyte Esterase Urine 2+ (Negative); Nitrite Urine Negative (Negative); Protein Urine Negative (Negative); RBC Urine Automated 0-4 /hpf (0-4); Specific Gravity Urine 1.015 (1.000-1.030); Urobilinogen Urine Negative (Negative)
--- NOTE | 2021-03-02 15:03 | CT Scan Report ---
CT abd pelvis wo con CLINICAL INDICATION: Lower back pain, known liver cancer.. TECHNIQUE: Helical axial images of the abdomen and pelvis were obtained. Automated dose lowering tech niques and/or adjustment according to patient size were utilized for this exam. This exam was perfor med without intravenous contrast. COMPARISON: Comparison is made to CT abdomen and pelvis 04/17/2021 FINDINGS: Lower chest: Atelectasis is seen in the left lung. There is a 6 mm nodular density in the lingula wh ich is unchanged. Liver: Unremarkable. No focal lesions are seen. Gallbladder and biliary tree: Patient is status post cholecystectomy. No intra- or extrahepatic bilia ry ductal dilation. Pancreas: Unremarkable, no focal lesions. Spleen: Unremarkable. 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 Kidneys and ureters: Poorly defined 5 mm exophytic hyperdensity arising from the right kidney inferio r pole may represent a proteinaceous or hemorrhagic cyst. Nonobstructive nephrolithiasis is seen on t he left. Bladder: Unremarkable. Reproductive organs: A calcified fibroid is incidentally noted. Bowel: Diverticulosis is seen without evidence of diverticulitis. The appendix is not seen. Postsurgi stef changes are seen in the lower esophagus and stomach with a large hiatal hernia noted in this zara ent with history of gastrectomy and gastrojejunostomy. Lymph nodes Retroperitoneal: Unremarkable. Mesenteric: Unremarkable. Pelvic: Unremarkable. Peritoneum: Normal Vessels: Atherosclerotic calcifications are seen. Abdominal wall: Postsurgical changes are seen in the abdominal wall. Bones: Patient is status post right total hip arthroplasty. 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 IMPRESSION: 1. No evidence of acute abnormality to explain patient's back pain. There is a chronic compression f racture of L1. 2. Additional findings as above. ACT 112: Negative or not required by law. Electronically signed by: Kan Leon M.D. 03/02/2021 3:02 PM
[2021-03-02 15:17] LABS: Basophils # (auto) 0.02 K/uL (0-0.2); Basophils % (auto) 0.3 %; Eosinophils # (auto) 0.04 K/uL (0-0.5); Eosinophils % (auto) 0.5 %; Hematocrit (blood only) 35.4 % (37-47); Hemoglobin 11.2 g/dL (12.0-16.0); Immature Granulocytes # (auto) 0.06 K/uL (0.00-0.02); Immature Granulocytes % (auto) 0.8 %; Lymphocytes # (auto) 1.08 K/uL (1.2-3.4); Lymphocytes % (auto) 14.2 %; Mean Corpuscular Hemoglobin 32.4 pg (25-34); Mean Corpuscular Hgb Conc 31.6 g/dL (32-36); Mean Corpuscular Volume 102.3 fL (80-100); Mean Platelet Volume 9.7 fL (7.4-10.4); Monocytes # (auto) 0.72 K/uL (0.11-0.59); Monocytes % (auto) 9.5 %; Neutrophils # (auto) 5.66 K/uL (1.4-6.5); Neutrophils % (auto) 74.7 %; Platelet Count 248 K/uL (130-400); RDW Coefficient of Variation 12.9 % (11.5-14.5); RDW Standard Deviation 47.8 fL (36.4-46.3); Red Blood Count 3.46 M/uL (4.2-5.4); White Blood Count 7.58 K/uL (4.8-10.8)
--- NOTE | 2021-03-02 15:23 | XRay Report ---
XR chest 1V portable HISTORY: 80 years-old Female weak acute weakness COMPARISON: Chest radiographs 02/11/2021 TECHNIQUE: Portable AP view of the chest FINDINGS: Cardiomediastinal and hilar silhouettes are within normal limits. Prior median sternotomy. Calcified plaque the thoracic aorta. The patient is slightly rotated towards the left. No pneumothorax, pleural effusion or overt pulmonary edema. Ill-defined left lung base opacity is likely secondary to summati on density. Mild chronic interstitial coarsening. Degenerative changes of the shoulders and spine. IMPRESSION: No acute process. ACT 112: Negative or not required by law. The above report was generated using voice recognition software. It may contain grammatical, syntax o r spelling errors. Electronically signed by: Kian Scales M.D. 03/02/2021 3:21 PM
[2021-03-02 15:28] LABS: INR 1.1 (0.9-1.1); Prothrombin Time 11.3 Seconds (9.0-12.0)
[2021-03-02 15:41] LABS: Albumin Level 3.7 gm/dl (3.4-5.0); BUN Creatinine Ratio 21.7 (10-20); Calcium 9.9 mg/dl (8.5-10.1); Creatinine Clr Calc Pharmacy 17.3 ml/min; Est GFR (African American) 27.6 ml/min; Est GFR (Non-African American) 23.8 ml/min; Potassium 4.7 mmol/L (3.5-5.1)
[2021-03-02 15:45] LABS: Albumin Globulin Ratio 0.9 (0.9-2); Bilirubin,Total 0.7 mg/dl (0.2-1); Globulin 4.2 gm/dl (2.5-4.0); Total Protein 7.9 gm/dl (6.4-8.2); Troponin I 0.02 ng/ml (0-0.045)
--- NOTE | 2021-03-02 16:09 | Electrocardiogram Report ---
Test Reason : Blood Pressure : / mmHG Vent. Rate : 087 BPM Atrial Rate : 234 BPM P-R Int : 000 ms QRS Dur : 132 ms QT Int : 390 ms P-R-T Axes : 000 039 -43 degrees QTc Int : 469 ms Atrial fibrillation Right bundle branch block T wave abnormality, consider inferolateral ischemia Abnormal ECG When compared with ECG of 07-JAN-2021 05:26, minimal change Confirmed by Dmitry Kelley ([id number]) on 03/02/2021 4:09:15 PM Referred By: Zulma Gaffney Confirmed By:Diego Kelley
--- NOTE | 2021-03-02 17:43 | History & Physical Report ---
Date of Service March 02, 2021 Assessment & Plan (1) Diarrhea: Plan: Acute on chronic- patient also has bouts of constipation that she also struggles with - diarrhea immediate following eating 3-5 minutes and multiple times per day over the past 23-48 hours - HCO3 19- consistent - Cholestyramine added with history of Whipple - Consider addition of Creon if will assist with symptoms - D5LR through the PM (2) Chronic atrial fibrillation with RVR: Plan: Rate controlled with diltiazem and metoprolol - Continue above - Continue Xarelto (3) Hypoglycemia: Plan: 75 on admission to [facility]- recheck following oral intake 43 - hypoglycemia protocol (4) Chronic dyspnea: Plan: Continue with her chronic supplemental oxygen humidified as needed - for her lung nodules as per HPI- her chest follow up CT scan will be in March (5) Fatigue: Plan: Multifactorial - Support IVF nutritional intake (6) Abdominal pain: Plan: Multifactorial with likely carcinoma and diarrhea (7) CKD (chronic kidney disease): Plan: Suport with IVF - follow BMP - avoid further nephrotoxic medicatons (8) CAD (coronary artery disease): Plan: Cardiac catheterization 01/06/2021 [facility]: Proximal LAD 20-30%. Mid LAD 50-60%, involving ostium of moderate D2. Distal LAD 80%. D2 60-70% ostial. Left to left collaterals to circumflex. [id number] collaterals. 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 RCA not visualized previously documented 100% proximal occlusion. SVG to RCA 99% stenosis just proximal to anastomosis with distal RCA with BRIAN 2 flow. Mid PDA 70%. Underwent PCI of SVG to RCA with 3.5 x 15 mm brenda. Recommended medical management of residual RCA branch vessel disease and mid/distal LAD disease. Complicated by Extraperitoneal hematoma and anemia. She was also found to have calcified proximal right common iliac artery 70-80%. 13. Echo 01/08/2021 [facility]: Low-normal LV systolic function. EF 50-55%. Hypokinetic base to mid inferior wall and posterior base. Mild to moderate AI. Moderate MR. (9) Liver mass: Plan: As per HPI - follows with [facility] - unsure if verification of biopsy was done (10) Pulmonary nodules: Plan: As per HPI - Follows with pulmonary - follow up CT in March History of Present Illness Primary Care Provider: Jocelynn Mauricio MD 80 YOF with past medical history of: Pancreatic mass with Whipple in 2002, pulmonary and hepatic nodules with negative EGD, CABG with PCI to SVG of the RCA, CAD, TMR in 2009, HF, CKD, Afib (on Xeralto). Patient had an MRI of the abdomen peformed in 10/15/20 that revealed a 3.5 cm hepatic lesion that was highly suspicious for cancer. MRI of the abdomen 11.06.20 was 3.6 cm. These were performed at [facility], she had a biopsy done in 12/16 that was documented as indeterminate. Reportedly the patient was offered declined further investigation secondary to her cardiac risk as she has significant CAD. She is also noted to have pulmonary nodules that are being followed by [facility] pulmonary group. Due to the characteristics of her nodules, they are being followed with serial CT scans. Patient continues to have decrease in function with weakness, increase in diarrhea. She was referred today from the palliative care nurse line secondary to the diarrhea and weakness. Her Oncologist is Dr. Garcia with [facility]. Patient has met t Palliative care on 02/16/21 with probably cancer diagnosis that she would not want to pursue chemo or radiation therapy to prolong her life minimally and she would want quality over quantity. Patient also reports that she has been having chest pressure in the center to the right side of her chest, which she is unsure if this is cardiac chest pain or pain to be expected from the cancer. This has been going on for the past month, and can come at rest or with activity. She has not taken any of her NTG pills to releive this and it lasts for a minute or less per the patient. The patient continues to search for prognosis and moving towards palliative care if that is her option. Patient will be admitted for IV hydration, symptom management with cholestyramine and bland diet. Patient has had her COVID vaccination and her COVID test on admission is: NEGATIVE Allergies Allergy/AdvReac Type Severity Reaction Status Date / Time banana Allergy Unknown HIVES/ITCHI Verified 03/02/21 17:09 NG Iodinated Contrast Media Allergy Unknown "CONTRAST"- Verified 03/02/21 17:09 HIVES/ITCHI NG povidone-iodine Allergy Unknown "drops for Verified 03/02/21 17:09 [From Betadine] eye before injection" - fox/vision trouble soap [From Betadine] Allergy Unknown "drops for Verified 03/02/21 17:09 eye before injection" - fox/vision trouble Home Medications Medication Instructions Recorded Confirmed Type prednisolone acetate 1 % eye 1 drops OPR QAM ml 02/12/19 03/02/21 History drops,suspension (Pred Forte) vitamins A,C,V-zolt-melaqt 7,160 2 tab PO BIDM 07/03/19 03/02/21 History unit-113 mg-100 unit tablet (PreserVision AREDS) blood sugar diagnostic (OneTouch #10 ea 08/02/19 02/24/21 History Verio test strips) OneTouch Verio Flex meter #1 ea NS 08/13/19 02/24/21 Rx (blood-glucose meter) furosemide 40 mg tablet (Lasix) 40 mg PO QAM #90 tab 03/09/20 03/02/21 Rx zoledronic acid 5 mg/100 mL in 5 mg IV .every other year ml 03/09/20 03/02/21 History mannitol 5 %-water intravenous piggybck (Reclast) copper gluconate 5 mg PO QPM 05/06/20 03/02/21 History mecobalamin (vitamin B12) 1 dose UD 05/06/20 03/02/21 History gabapentin 300 mg capsule 900 mg PO HS 90 Days #270 cap 08/26/20 03/02/21 Rx levetiracetam 500 mg tablet 500 mg PO BID 90 Days #180 tab 08/26/20 03/02/21 Rx (Keppra) atorvastatin 40 mg tablet (Lipitor) 40 mg PO HS #90 tab 08/28/20 03/02/21 Rx potassium chloride 8 mEq 16 meq PO QAM 09/08/20 03/02/21 History tablet,extended release calcitriol 0.25 mcg capsule 0.25 mcg PO MOWEFR #36 cap 09/17/20 03/02/21 Rx ranolazine 500 mg tablet,extended 500 mg PO BID #60 tab 10/28/20 03/02/21 Rx release,12 hr (Ranexa) biotin 1,000 mcg chewable tablet 1,000 mcg PO DAILY 12/09/20 03/02/21 History epinephrine 0.3 mg/0.3 mL 0.3 mg IM UD PRN 12/09/20 03/02/21 History injection, auto-injector rivaroxaban 20 mg tablet (Xarelto) 20 mg PO QPM 12/09/20 03/02/21 History ubrogepant 100 mg tablet (Ubrelvy) 100 mg PO UD PRN 12/09/20 03/02/21 History nitroglycerin 0.4 mg sublingual 0.4 mg SUBLINGUAL UD PRN #25 tab 01/04/21 03/02/21 Rx tablet clopidogrel 75 mg tablet 75 mg PO QAM #30 tab 01/09/21 03/02/21 Rx isosorbide mononitrate 120 mg 240 mg PO QAM #180 tab 01/20/21 03/02/21 Rx tablet,extended release 24 hr Portable Oxygen #1 ea 02/18/21 02/24/21 Rx metoprolol succinate 200 mg 200 mg PO UD tab 02/24/21 03/02/21 History tablet,extended release 24 hr digoxin 125 mcg (0.125 mg) tablet 125 mcg PO Q2D 03/02/21 03/02/21 History Past Med/Surg History Medical History (Updated 03/02/21 @ 21:04 by Alison Chilel RN) Benign essential tremor CAD (coronary artery disease) CABG x 1 vessel 2016 Cerebellar infarct Follows with neuro= "Prior cerebellar stroke without residual deficits" - continue ASA and statin Chronic diastolic congestive heart failure Chronic dyspnea 3L AT HOME NEEDED Chronic hypoxemic respiratory failure Chronic kidney disease (CKD), stage III (moderate) Chronic low back pain Copper deficiency Corneal dystrophy CVA (cerebral vascular accident) NO RESIDUAL AT AGE 50 Diabetes Family history of reaction to anesthesia SISTER - HIVES, N/V GERD (gastroesophageal reflux disease) History of cardioversion 1978 & AUGUST 2020 History of [place] (myocardial infarction) 1978 History of vertigo Hyperlipemia Hypertension Intrahepatic cholangiocarcinoma Liver cancer DX AUGUST 2020 - [facility] Liver mass DX JULY 2020 Macular degeneration Mitral regurgitation Mild to moderate per 2019 ECHO Multiple pulmonary nodules determined by computed tomography of lung Osteoporosis with fracture fx ribs from falling, NO CURRENT FRACTURES Pancreatic tumor had surgery removal of head Paroxysmal atrial fibrillation and flutter--On Xarelto , DX 2018 - HX CARDIOVERSION AUGUST 2020 Peripheral neuropathy Pulmonary hypertension PASP 30-40mmHg Pulmonary nodule monitored yearly Sleep apnea Spondylosis Temporal lobe epilepsy Follows with neuro Started on Keppra in Spring 2019 with no further events since that time Continue Keppra per 08/10/20 neuro note Surgical History (Updated 03/02/21 @ 21:06 by Alison Chilel RN) Gastric bypass status for obesity H/O abdominoplasty WITH NECK REPAIRED WELL H/O cataract extraction right and left H/O ovarian cystectomy H/O thumb surgery left and right History of appendectomy History of breast biopsy several both sides History of corneal transplant right eye History of ear surgery 1967, LEFT History of resection of pancreas head of pancreas removed 2009 History of total right hip replacement History of transmyocardial revascularization Hx of cardiac cath 2013, AUGUST 2015, october 2020, november 2020 S/P CABG (coronary artery bypass graft) 2015 S/P cholecystectomy S/P tonsillectomy and adenoidectomy S/P trigger finger release left thumb x3, one surgery on right Status post right knee replacement Family History Sister Breast cancer 2 sisters Diabetes 2 sisters Heart disease Cancer 2 sisters Father Myocardial infarction Heart disease Hypertension Brother Myocardial infarction Diabetes Heart disease 2 brothers Hypertension Mother Non-Hodgkin lymphoma Stroke Cancer Grandfather Diabetes Heart disease Denies family history of Ovarian cancer Prostate cancer Colorectal cancer Social History Smoking Status: Never smoker Age Started Using Tobacco: 16; Age Quit Using Tobacco: 50; packs per day: 1.5; Cigarettes Per Day: 30; Smoking End Date: QUIT 1990; Second Hand Exposure: No; Do You Dip or Chew Tobacco: No; Tobacco Cessation Education Requested by Patient: No Hx Alcohol Use: No Hx Substance Use: No Preferred Language: Swedish Communication Ability: Effective Visual Impairment: Limited Hearing Ability: Normal Assistant Program Director Required: No Beliefs That Will Affect Care: None marital status: / Current Living Situation: Family Current Living Situation Comment: [facility]SON 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 current occupational status: retired Other Information That Helps Us Care for You: No Feels Safe at Home: Yes Safety Concerns: Feels Safe At This Time Childhood Exposure to Second-Hand Smoke: No Dental Care, Regularly: Yes Physical Activity Frequency: Does not Exercise Seatbelt Use: always Assistive Devices: Glasses, Oxygen - Continuous and Walker Review of Systems Review of Systems: REVIEW OF SYSTEMS: Constitutional: No fever, sweats or chills Eyes: No diplopia, no worsening or blurred vision ENT: normal hearing, no trouble swallowing Respiratory: (+) chronic cough, sputum, dyspnea at rest or on exertion Cardiovascular: (+) chest pain, tightness or palpitations Abdomen: No pain, nausea, vomiting, diarrhea or constipation Musculoskeletal: No joint pain, calf pain, swelling Neurologic: No weakness, numbness/tingling, or balance problems Psychiatric: No anxiety or depression Skin: No rash or itch Results & Data Results & Data ([facility]) Vital Signs (Past 12 Hours) Vital Signs Temp Pulse Resp BP Pulse Ox 03/02/21 15:16 89 15 129/97 100 03/02/21 14:30 102 H 14 152/82 H 03/02/21 13:39 36.5 C 92 H 18 133/65 93 03/02/21 13:30 90 13 133/65 03/02/21 13:05 103 H 16 125/90 95 Laboratory Results Abnormal lab results 03/02/21 03/02/21 03/02/21 Range/Units 14:40 14:59 14:59 RBC 3.46 L (4.2-5.4) M/uL Hgb 11.2 L (12.0-16.0) g/dL Hct 35.4 L (37-47) % MCV 102.3 H (80-100) fL MCHC 31.6 L (32-36) g/dL RDW Std Deviation 47.8 H (36.4-46.3) fL Lymph # (Auto) 1.08 L (1.2-3.4) K/uL Jay # (Auto) 0.72 H (0.11-0.59) K/uL Immature Gran # (Auto) 0.06 H (0.00-0.02) K/uL Chloride 109 H (98-107) mmol/L Carbon Dioxide 19 L (21-32) mmol/L BUN 42 H (7-18) mg/dl Creatinine 1.93 H (0.6-1.2) mg/dl BUN/Creatinine Ratio 21.7 H (10-20) Ammonia (11-32) umol/L Globulin 4.2 H (2.5-4.0) gm/dl Urine Ketones Trace H (Negative) Ur Leukocyte Esterase 2+ H (Negative) Urine WBC (Auto) 10-30 H (0-5) /hpf U Epithel Cells (Auto) >30 H (0-5) /lpf 03/02/21 Range/Units 14:59 RBC (4.2-5.4) M/uL Hgb (12.0-16.0) g/dL Hct (37-47) % MCV (80-100) fL MCHC (32-36) g/dL RDW Std Deviation (36.4-46.3) fL Lymph # (Auto) (1.2-3.4) K/uL Jay # (Auto) (0.11-0.59) K/uL Immature Gran # (Auto) (0.00-0.02) K/uL Chloride (98-107) mmol/L Carbon Dioxide (21-32) mmol/L BUN (7-18) mg/dl Creatinine (0.6-1.2) mg/dl BUN/Creatinine Ratio (10-20) Ammonia < 10.0 L (11-32) umol/L Globulin (2.5-4.0) gm/dl Urine Ketones (Negative) Ur Leukocyte Esterase (Negative) Urine WBC (Auto) (0-5) /hpf U Epithel Cells (Auto) (0-5) /lpf Diagnostic Findings Abdomen/Pelvis CT 03/02/21 14:05 CT abd pelvis wo con CLINICAL INDICATION: Lower back pain, known liver cancer.. TECHNIQUE: Helical axial images of the abdomen and pelvis were obtained. Automated dose lowering techniques and/or adjustment according to patient size were utilized for this exam. This exam was performed without intravenous contrast. COMPARISON: Comparison is made to CT abdomen and pelvis 04/17/2021 FINDINGS: Lower chest: Atelectasis is seen in the left lung. There is a 6 mm nodular density in the lingula which is unchanged. Liver: Unremarkable. No focal lesions are seen. Gallbladder and biliary tree: Patient is status post cholecystectomy. No intra- or extrahepatic biliary ductal dilation. Pancreas: Unremarkable, no focal lesions. Spleen: Unremarkable. 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 Kidneys and ureters: Poorly defined 5 mm exophytic hyperdensity arising from the right kidney inferior pole may represent a proteinaceous or hemorrhagic cyst. Nonobstructive nephrolithiasis is seen on the left. Bladder: Unremarkable. Reproductive organs: A calcified fibroid is incidentally noted. Bowel: Diverticulosis is seen without evidence of diverticulitis. The appendix is not seen. Postsurgical changes are seen in the lower esophagus and stomach with a large hiatal hernia noted in this patient with history of gastrectomy and gastrojejunostomy. Lymph nodes Retroperitoneal: Unremarkable. Mesenteric: Unremarkable. Pelvic: Unremarkable. Peritoneum: Normal Vessels: Atherosclerotic calcifications are seen. Abdominal wall: Postsurgical changes are seen in the abdominal wall. Bones: Patient is status post right total hip arthroplasty. 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 IMPRESSION: 1. No evidence of acute abnormality to explain patient's back pain. There is a chronic compression fracture of L1. 2. Additional findings as above. ACT 112: Negative or not required by law. Electronically signed by: Kan Leon M.D. 03/02/2021 3:02 PM Chest X-Ray 03/02/21 14:05 XR chest 1V portable HISTORY: 80 years-old Female weak acute weakness COMPARISON: Chest radiographs 02/11/2021 TECHNIQUE: Portable AP view of the chest FINDINGS: Cardiomediastinal and hilar silhouettes are within normal limits. Prior median sternotomy. Calcified plaque the thoracic aorta. The patient is slightly rotated towards the left. No pneumothorax, pleural effusion or overt pulmonary edema. Ill-defined left lung base opacity is likely secondary to summation density. Mild chronic interstitial coarsening. Degenerative changes of the shoulders and spine. IMPRESSION: No acute process. ACT 112: Negative or not required by law. The above report was generated using voice recognition software. It may contain grammatical, syntax or spelling errors. Electronically signed by: Kian Scales M.D. 03/02/2021 3:21 PM Medications Administered Home Medications prednisolone acetate 1 % eye drops,suspension (Pred Forte) 1 drops OPR QAM ml 02/12/19 [History Confirmed 03/02/21] vitamins A,C,U-zzfq-hzbgbq 7,160 unit-113 mg-100 unit tablet (PreserVision AREDS) 2 tab PO BIDM 07/03/19 [History Confirmed 03/02/21] blood sugar diagnostic (OneTouch Verio test strips) #10 ea 08/02/19 [History Confirmed 02/24/21] OneTouch Verio Flex meter (blood-glucose meter) #1 ea NS 08/13/19 [Rx Confirmed 02/24/21] furosemide 40 mg tablet (Lasix) 40 mg PO QAM #90 tab 03/09/20 [Rx Confirmed 03/02/21] zoledronic acid 5 mg/100 mL in mannitol 5 %-water intravenous piggybck (Reclast) 5 mg IV .every other year ml 03/09/20 [History Confirmed 03/02/21] copper gluconate 5 mg PO QPM 05/06/20 [History Confirmed 03/02/21] mecobalamin (vitamin B12) 1 dose UD 05/06/20 [History Confirmed 03/02/21] gabapentin 300 mg capsule 900 mg PO HS 90 Days #270 cap 08/26/20 [Rx Confirmed 03/02/21] levetiracetam 500 mg tablet (Keppra) 500 mg PO BID 90 Days #180 tab 08/26/20 [Rx Confirmed 03/02/21] atorvastatin 40 mg tablet (Lipitor) 40 mg PO HS #90 tab 08/28/20 [Rx Confirmed 03/02/21] potassium chloride 8 mEq tablet,extended release 16 meq PO QAM 09/08/20 [History Confirmed 03/02/21] calcitriol 0.25 mcg capsule 0.25 mcg PO MOWEFR #36 cap 09/17/20 [Rx Confirmed 03/02/21] ranolazine 500 mg tablet,extended release,12 hr (Ranexa) 500 mg PO BID #60 tab 10/28/20 [Rx Confirmed 03/02/21] biotin 1,000 mcg chewable tablet 1,000 mcg PO DAILY 12/09/20 [History Confirmed 03/02/21] epinephrine 0.3 mg/0.3 mL injection, auto-injector 0.3 mg IM UD PRN 12/09/20 [History Confirmed 03/02/21] rivaroxaban 20 mg tablet (Xarelto) 20 mg PO QPM 12/09/20 [History Confirmed 03/02/21] ubrogepant 100 mg tablet (Ubrelvy) 100 mg PO UD PRN 12/09/20 [History Confirmed 03/02/21] nitroglycerin 0.4 mg sublingual tablet 0.4 mg SUBLINGUAL UD PRN #25 tab 01/04/21 [Rx Confirmed 03/02/21] clopidogrel 75 mg tablet 75 mg PO QAM #30 tab 01/09/21 [Rx Confirmed 03/02/21] isosorbide mononitrate 120 mg tablet,extended release 24 hr 240 mg PO QAM #180 tab 01/20/21 [Rx Confirmed 03/02/21] Portable Oxygen #1 ea 02/18/21 [Rx Confirmed 02/24/21] metoprolol succinate 200 mg tablet,extended release 24 hr 200 mg PO UD tab 02/24/21 [History Confirmed 03/02/21] digoxin 125 mcg (0.125 mg) tablet 125 mcg PO Q2D 03/02/21 [History Confirmed 03/02/21] Active Medications Dextrose/Lactated Ringer's (D5w And Lactated Ringers) 1,000 mls @ 85 mls/hr IV .[id number] ONE Stop: 03/03/21 05:49 ECG Additional Comments: Atrial fibrillation Right bundle branch block T wave abnormality, consider inferolateral ischemia Abnormal ECG When compared with ECG of 07-JAN-2021 05:26, minimal change Code Status & VTE Plan Code Status CODE: DNR/DNI VTE: SCDs, Xeralto, ambulation VTE Prophylaxis Plan VTE Prophylaxis will be ordered: Yes Supervising Physician Co-Signing Physician Notes Attending addendum: I have physically seen this patient, have supervised the CHANTEL's activities, and agree with the H&P unless as otherwise noted. Assessment and Plan: Acute worsening of chronic diarrhea- Add cholestyramine twice daily with meals start with Pancrelipase tablets in future if needed to deal with possible exocrine pancreatic insufficiency Hypoglycemia- 76 on BMP on admission. Recheck following oral intake was 43. Given amp of D50 now, repeat BSG in 30 minutes Points towards issue with malabsorption Review of previous testing for gluten sensitive enteropathy if done Chronic atrial fibrillation with RVR- Presently rate controlled with diltiazem and metoprolol, continue both Continue Xarelto Remaining orders and notations as noted PG Care Time/CCT Total # of Minutes Spent Total Time Spent with Patient: Total time spent is greater than 50% in coordination of care (as documented) at patient's floor/unit and/or counseling patient: Coding Level of Care Code 94297 Initial Inpt Care Lvl 3 Diagnoses Diarrhea R19.7 Chronic atrial fibrillation with RVR I48.20 Chronic dyspnea R06.09 Fatigue R53.83 Abdominal pain R10.9 CKD (chronic kidney disease) N18.9 CAD (coronary artery disease) I25.10 Associated angina: without angina Coronary Disease-Associated Artery/Lesion type: [place] artery [place] vs. transplanted heart: [place] heart Liver mass R16.0 Pulmonary nodules R91.8 Hypoglycemia E16.2 (1) CAD (coronary artery disease) Associated angina: without angina Coronary Disease-Associated Artery/Lesion type: [place] artery [place] vs. transplanted heart: [place] heart Qualified Code(s): I25.10 - Atherosclerotic heart disease of [place] coronary artery without angina pectoris
[2021-03-02] MEDS ORDERED: D5W AND LACTATED RINGERS 1,000 ML IV ONE (18:04)
[2021-03-02] MEDS ORDERED: GLUCOSE 40% GEL 15 GM TUBE PO PRN (18:17)
[2021-03-02] MEDS ORDERED: DEXTROSE 50% 50 ML SYRINGE IV PRN (18:17)
[2021-03-02] MEDS ORDERED: CARBOHYDRATES FOR HYPOGLYCEMIA PO PRN (18:17)
[2021-03-02] MEDS ORDERED: GLUCAGON FOR INJ 1 MG VIAL SQ PRN (18:17)
[2021-03-02] MEDS ORDERED: GLUCOSE 10 TABS/TUBE PO PRN (18:17)
[2021-03-02] MEDS ORDERED: POLYETHYLENE (MIRALAX) 17 GM PACK PO PRN (20:48)
[2021-03-02] MEDS ORDERED: ALBUTEROL HFA 8 GM INHALER INH PRN (20:48)
[2021-03-02] MEDS ORDERED: NITROGLYCERIN SL 0.4 MG/TAB TAB SL PRN (20:48)
[2021-03-02] MEDS ORDERED: ACETAMINOPHEN 325 MG TAB PO PRN (20:48)
[2021-03-02] MEDS ORDERED: ONDANSETRON INJ 2 MG/ML 2 ML VIAL IV PRN (20:48)
[2021-03-02] MEDS ORDERED: RIVAROXABAN 20 MG TAB PO SCH (21:00)
[2021-03-02] MEDS: METOPROLOL SUCC 50MG EXT REL TAB PO SCH (22:13)
[2021-03-02] MEDS: DIGOXIN 0.125 MG TAB PO SCH (22:14)
[2021-03-02] MEDS: levETIRAcetam 500 MG TAB PO SCH (22:15)
[2021-03-02] MEDS: GABAPENTIN 300 MG CAP PO SCH (22:15)
[2021-03-02] MEDS: ATORVASTATIN 40 MG TAB PO SCH (22:16)
[2021-03-02] MEDS: RANOLAZINE 500 MG ER TAB PO SCH (22:16)
[2021-03-02] MEDS: RIVAROXABAN 15 MG TAB PO SCH (23:05)
[2021-03-02] MEDS: CHOLESTYRAMINE LIGHT 4 GM PKT PO SCH (23:09)
[2021-03-03 06:24] LABS: Basophils # (auto) 0.02 K/uL (0-0.2); Basophils % (auto) 0.4 %; Eosinophils # (auto) 0.15 K/uL (0-0.5); Eosinophils % (auto) 2.8 %; Hematocrit (blood only) 28.1 % (37-47); Hemoglobin 9.2 g/dL (12.0-16.0); Immature Granulocytes # (auto) 0.06 K/uL (0.00-0.02); Immature Granulocytes % (auto) 1.1 %; Lymphocytes # (auto) 1.08 K/uL (1.2-3.4); Lymphocytes % (auto) 20.1 %; Mean Corpuscular Hgb Conc 32.7 g/dL (32-36); Mean Corpuscular Volume 100.7 fL (80-100); Mean Platelet Volume 9.6 fL (7.4-10.4); Monocytes # (auto) 0.97 K/uL (0.11-0.59); Monocytes % (auto) 18.1 %; Neutrophils # (auto) 3.08 K/uL (1.4-6.5); Neutrophils % (auto) 57.5 %; Platelet Count 225 K/uL (130-400); RDW Coefficient of Variation 12.6 % (11.5-14.5); RDW Standard Deviation 45.6 fL (36.4-46.3); Red Blood Count 2.79 M/uL (4.2-5.4); White Blood Count 5.36 K/uL (4.8-10.8)
[2021-03-03 06:54] LABS: BUN Creatinine Ratio 23.3 (10-20); Calcium 8.9 mg/dl (8.5-10.1); Creatinine Clr Calc Pharmacy 22.2 ml/min; Est GFR (African American) 37.5 ml/min; Est GFR (Non-African American) 32.3 ml/min; Magnesium 1.8 mg/dl (1.8-2.4); Potassium 4.3 mmol/L (3.5-5.1)
[2021-03-03] MEDS: prednisoLONE acetate 1% OP SUSP 5 ML BTL OPR SCH (08:56)
[2021-03-03] MEDS: CLOPIDOGREL BISULFATE 75 MG TAB PO SCH (08:56)
[2021-03-03] MEDS: levETIRAcetam 500 MG TAB PO SCH ×2 (08:56→20:01)
[2021-03-03] MEDS: METOPROLOL SUCC 50MG EXT REL TAB PO SCH ×2 (08:56→20:02)
[2021-03-03] MEDS: FUROSEMIDE 40 MG TAB PO SCH (08:56)
[2021-03-03] MEDS: RANOLAZINE 500 MG ER TAB PO SCH ×2 (08:56→20:02)
[2021-03-03] MEDS: ISOSORBIDE MONO EXTENDED REL 60 MG TABCR PO SCH (08:56)
[2021-03-03] MEDS ORDERED: CALCITRIOL 0.25 MCG CAPSULE PO SCH (09:00)
[2021-03-03] MEDS ORDERED: NON-FORMULARY MEDICATION (Biotin 1,000 mcg Tablet,Chewable) PO SCH (09:00)
[2021-03-03] MEDS ORDERED: MAGNESIUM SULFATE / D5W 1 GM/100 ML BAG IV ONE (09:30)
--- NOTE | 2021-03-03 11:48 | Palliative Care Consultation ---
Date of Consultation March 03, 2021 Assessment & Plan (1) Sternal pain: Different from her typical anginal pain, more pleuritic in nature. Possibly musculoskeletal. She has prn tylenol. (2) Abdominal pain: With diarrhea. Workup in progress (3) Protein calorie malnutrition: Poor appetite compounded with pancreatic insufficiency. She will be meeting with machine applicator cementer. (4) Fatigue: (5) Palliative care encounter: I have met with Maribell as an outpatient as well to discuss goals of care. She has specifically said that she would not want CPR or intubation and that her two sons and oldest daughter Leydi, are her surrogate decision makers. She has discussed her wishes with them. She has been trying to get more specific information with regard to possible malignancy and how that would affect her prognosis. She has said and continues to say that she does not think that she would want aggressive treatment for advanced cancer and that the quality of her life is more important than living a longer life if she is frail and dependent for care. Unfortunately, lack of specific information has been stressful for her and she does not feel like she can make a definitive decision on what her treatment goals would be at this time. Agree with PET scan to provide more information. She is agreeable to ongoing followup with palliative care as this evolves. (6) Multiple pulmonary nodules determined by computed tomography of lung: (7) CAD (coronary artery disease): Coronary Disease-Associated Artery/Lesion type: [place] artery [place] vs. transplanted heart: [place] heart Associated angina: without angina Qualified Code(s): I25.10 - Atherosclerotic heart disease of [place] coronary artery without angina pectoris (8) Intrahepatic cholangiocarcinoma: History of Present Illness Reason for Consultation: goals of care Requesting Physician: ANCELMO Bellamy Attending Physician: Reynold Austin MD History of Present Illness 80 yo lady with extensive history of CAD, having her first NM at age 38. She has multiple interventions, including CABG and most recently SVG to RCA graft stent. She is followed for heart failure, atrial fibrillation and CKD as well. In 2004, she was diagnosed with pancreatic mass and had Whipple procedure. More recently, she was seen at [facility] for biopsy of a 3.6 cm hepatic mass which was indeterminate. She has also been followed by Dr. Alejo for pulmonary nodules with serial CTs, last done in September 2020. She was started on oxygen therapy for hypoxia in the last couple months. She has had progressive functional decline to the point of difficulty getting out of bed. She has had diarrhea and ongoing abdominal pain across her lower abdomen but focused in LLQ. She does have diverticulosis without evidence of diverticulitis on CT. She has poor appetite with a 32 lb weight loss since September of 2020. She was found to have JASMINA with dehydration on admission and renal function is improving with IV hydration. Interestingly, MRI of abdomen done in October noted 3.6cm hepatic mass and multiple pancreatic nodules consistent with IPMN. These were not evident on CT done on admission. She is awake and alert, complaining of some sternal pain with inspiration and cough. She denies dyspnea, hemoptysis. Allergies Allergy/AdvReac Type Severity Reaction Status Date / Time banana Allergy Unknown HIVES/ITCHI Verified 03/02/21 17:09 NG Iodinated Contrast Media Allergy Unknown "CONTRAST"- Verified 03/02/21 17:09 HIVES/ITCHI NG povidone-iodine Allergy Unknown "drops for Verified 03/02/21 17:09 [From Betadine] eye before injection" - fox/vision trouble soap [From Betadine] Allergy Unknown "drops for Verified 03/02/21 17:09 eye before injection" - fox/vision trouble Home Medications Medication Instructions Recorded Confirmed Type prednisolone acetate 1 % eye 1 drops OPR QAM ml 02/12/19 03/02/21 History drops,suspension (Pred Forte) vitamins A,C,N-mcuv-rkpecp 7,160 2 tab PO BIDM 07/03/19 03/02/21 History unit-113 mg-100 unit tablet (PreserVision AREDS) blood sugar diagnostic (OneTouch #10 ea 08/02/19 02/24/21 History Verio test strips) OneTouch Verio Flex meter #1 ea NS 08/13/19 02/24/21 Rx (blood-glucose meter) furosemide 40 mg tablet (Lasix) 40 mg PO QAM #90 tab 03/09/20 03/02/21 Rx zoledronic acid 5 mg/100 mL in 5 mg IV .every other year ml 03/09/20 03/02/21 History mannitol 5 %-water intravenous piggybck (Reclast) copper gluconate 5 mg PO QPM 05/06/20 03/02/21 History mecobalamin (vitamin B12) 1 dose UD 05/06/20 03/02/21 History gabapentin 300 mg capsule 900 mg PO HS 90 Days #270 cap 08/26/20 03/02/21 Rx levetiracetam 500 mg tablet 500 mg PO BID 90 Days #180 tab 08/26/20 03/02/21 Rx (Keppra) atorvastatin 40 mg tablet (Lipitor) 40 mg PO HS #90 tab 08/28/20 03/02/21 Rx potassium chloride 8 mEq 16 meq PO QAM 09/08/20 03/02/21 History tablet,extended release calcitriol 0.25 mcg capsule 0.25 mcg PO MOWEFR #36 cap 09/17/20 03/02/21 Rx ranolazine 500 mg tablet,extended 500 mg PO BID #60 tab 10/28/20 03/02/21 Rx release,12 hr (Ranexa) biotin 1,000 mcg chewable tablet 1,000 mcg PO DAILY 12/09/20 03/02/21 History epinephrine 0.3 mg/0.3 mL 0.3 mg IM UD PRN 12/09/20 03/02/21 History injection, auto-injector rivaroxaban 20 mg tablet (Xarelto) 20 mg PO QPM 12/09/20 03/02/21 History ubrogepant 100 mg tablet (Ubrelvy) 100 mg PO UD PRN 12/09/20 03/02/21 History nitroglycerin 0.4 mg sublingual 0.4 mg SUBLINGUAL UD PRN #25 tab 01/04/21 03/02/21 Rx tablet clopidogrel 75 mg tablet 75 mg PO QAM #30 tab 01/09/21 03/02/21 Rx isosorbide mononitrate 120 mg 240 mg PO QAM #180 tab 01/20/21 03/02/21 Rx tablet,extended release 24 hr Portable Oxygen #1 ea 02/18/21 02/24/21 Rx metoprolol succinate 200 mg 200 mg PO UD tab 02/24/21 03/02/21 History tablet,extended release 24 hr digoxin 125 mcg (0.125 mg) tablet 125 mcg PO Q2D 03/02/21 03/02/21 History Patient History Medical History Benign essential tremor CAD (coronary artery disease) CABG x 1 vessel 2016 Cerebellar infarct Follows with neuro= "Prior cerebellar stroke without residual deficits" - continue ASA and statin Chronic diastolic congestive heart failure Chronic dyspnea 3L AT HOME NEEDED Chronic hypoxemic respiratory failure Chronic kidney disease (CKD), stage III (moderate) Chronic low back pain Copper deficiency Corneal dystrophy CVA (cerebral vascular accident) NO RESIDUAL AT AGE 50 Diabetes Family history of reaction to anesthesia SISTER - HIVES, N/V GERD (gastroesophageal reflux disease) History of cardioversion 1978 & AUGUST 2020 History of NM (myocardial infarction) 1978 History of vertigo Hyperlipemia Hypertension Intrahepatic cholangiocarcinoma Liver cancer [facility]UGUST 2020 - [facility] Liver mass DX JULY 2020 Macular degeneration Mitral regurgitation Mild to moderate per 2019 ECHO Multiple pulmonary nodules determined by computed tomography of lung Osteoporosis with fracture fx ribs from falling, NO CURRENT FRACTURES Pancreatic tumor had surgery removal of head Paroxysmal atrial fibrillation and flutter--On Xarelto , DX 2018 - HX CARDIOVERSION AUGUST 2020 Peripheral neuropathy Pulmonary hypertension PASP 30-40mmHg Pulmonary nodule monitored yearly Sleep apnea Spondylosis Temporal lobe epilepsy Follows with neuro Started on Keppra in Spring 2019 with no further events since that time Continue Keppra per 08/10/20 neuro note Surgical History Gastric bypass status for obesity H/O abdominoplasty WITH NECK REPAIRED WELL H/O cataract extraction right and left H/O ovarian cystectomy H/O thumb surgery left and right History of appendectomy History of breast biopsy several both sides History of corneal transplant right eye History of ear surgery 1967, LEFT History of resection of pancreas head of pancreas removed 2009 History of total right hip replacement History of transmyocardial revascularization Hx of cardiac cath 2013, AUGUST 2015, october 2020, november 2020 S/P CABG (coronary artery bypass graft) 2016 S/P cholecystectomy S/P tonsillectomy and adenoidectomy S/P trigger finger release left thumb x3, one surgery on right Status post right knee replacement Family History Sister Breast cancer 2 sisters Diabetes 2 sisters Heart disease Cancer 2 sisters Father Myocardial infarction Heart disease Hypertension Brother Myocardial infarction Diabetes Heart disease 2 brothers Hypertension Mother Non-Hodgkin lymphoma Stroke Cancer Grandfather Diabetes Heart disease Denies family history of Ovarian cancer Prostate cancer Colorectal cancer Social History Smoking Status: Never smoker Age Started Using Tobacco: 16; Age Quit Using Tobacco: 50; packs per day: 1.5; Cigarettes Per Day: 30; Smoking End Date: QUIT 1990; Second Hand Exposure: No; Do You Dip or Chew Tobacco: No; Tobacco Cessation Education Requested by Patient: No Hx Alcohol Use: No Hx Substance Use: No Preferred Language: [place] Communication Ability: Effective Visual Impairment: Limited Hearing Ability: Normal Sour Bleaching Pleater Required: No Beliefs That Will Affect Care: None marital status: / Current Living Situation: Family Current Living Situation Comment: 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 current occupational status: retired Other Information That Helps Us Care for You: No Feels Safe at Home: Yes Safety Concerns: Feels Safe At This Time Childhood Exposure to Second-Hand Smoke: No Dental Care, Regularly: Yes Physical Activity Frequency: Does not Exercise Seatbelt Use: always Assistive Devices: Glasses, Oxygen - Continuous and Walker Review of Systems Review of Systems: [place] Symptom Assessment Scale Pain 1/3 Dyspnea 0/3 Fatigue 2/3 Anorexia 2/3 Nausea 0/3 Anxiety 1/3 Drowsiness 0/3 Palliative Performance Score 40% Physical Exam Constitutional: + thin and + frail appearing Respiratory: normal respiratory effort; no labored breathing Cardiovascular: Rate/Rhythm: + irregularly irregular Gastrointestinal (Abdomen): soft, LLQ tenderness to palpation Musculoskeletal: Extremities: + muscle atrophy palpable sternum, not tender to palpation Neurologic: awake; not confused Results & Data ([facility]) Vital Signs (Past 12 Hours) Vital Signs Temp Pulse Resp BP Pulse Ox 03/03/21 07:29 97.5 F L 56 L 16 137/73 100 PG Care Time/CCT Total # of Minutes Spent Total Time Spent: 80 Total Time Spent with Patient: Total time spent is greater than 50% in coordination of care (as documented) at patient's floor/unit and/or counseling patient: goals of care, surrogate decision maker, symptom management, patient education and support Coding Level of Care Code 98964 Initial Inpt Care Lvl 3 Diagnoses Sternal pain R07.89 Abdominal pain R10.9 Fatigue R53.83 Protein calorie malnutrition E46 Palliative care encounter Z51.5 Multiple pulmonary nodules determined by computed tomography of lung R91.8 CAD (coronary artery disease) I25.10 Coronary Disease-Associated Artery/Lesion type: [place] artery [place] vs. transplanted heart: [place] heart Associated angina: without angina Intrahepatic cholangiocarcinoma C22.1
[2021-03-03] MEDS: CHOLESTYRAMINE LIGHT 4 GM PKT PO SCH ×2 (11:54→20:02)
--- NOTE | 2021-03-03 16:35 | Hospitalist Progress Note ---
Date of Service March 03, 2021 Assessment & Plan (1) Diarrhea: Plan: Acute on chronic- patient also has bouts of constipation that she also struggles with - diarrhea immediate following eating 3-5 minutes and multiple times per day over the past 23-48 hours - HCO3 19- consistent - Cholestyramine added with history of Whipple -We will add Creon with meals -Frequency has decreased -Continue to monitor output (2) Chronic atrial fibrillation with RVR: Plan: Rate controlled with diltiazem and metoprolol - Continue Xarelto (3) Hypoglycemia: Plan: 75 on admission to [facility]- recheck following oral intake 43 - hypoglycemia protocol -Random glucose 135 this morning Follow serial labs (4) Chronic dyspnea: Plan: Patient is followed with Dr. Leach in the past for obstructive sleep apnea Nontolerant of CPAP/BiPAP Pulmonary nodules have been noted since September 2019 There has been some growth of the groundglass opacities and patient is scheduled for follow-up CT scan on a 6-month basis Empirically started on trilogy as an outpatient -continue with ICS, AC, LABA Pulmonary function testing as an outpatient SaO2 adequate on room air Continue supplemental oxygen to maintain SaO2 greater than 90% (5) Fatigue: Plan: Multifactorial - Support IVF nutritional intake There is a question of malignancy with the patient. Hepatic lesion evaluated with fine-needle aspiration at [place] with indetermin ate findings. Patient also has multiple pulmonary nodules which have been followed since September [address] chest has been ordered May be prudent to order outpatient PET/CT to look for FDG avidity 25 pound weight loss over the past several months Patient following with Dr. Kevan Garcia for hematological issues related to iron deficiency anemia Continue outpatient work-up (6) Abdominal pain: Plan: Multifactorial with likely carcinoma and diarrhea Consider PET/CT as listed above to rule out malignancy Improved today (7) CKD (chronic kidney disease): Plan: Creatinine improved to baseline today with a creatinine of 1.5 - follow BMP - avoid nephrotoxic medications (8) CAD (coronary artery disease): Plan: Cardiac catheterization 01/06/2021 [facility]: Proximal LAD 20-30%. Mid LAD 50-60%, involving ostium of moderate D2. Distal LAD 80%. D2 60-70% ostial. Left to left collaterals to circumflex. [id number]-[id number] collaterals. 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 RCA not visualized previously documented 100% proximal occlusion. SVG to RCA 99% stenosis just proximal to anastomosis with distal RCA with BRIAN 2 flow. Mid PDA 70%. Underwent PCI of SVG to RCA with 3.5 x 15 mm brenda. Recommended medical management of residual RCA branch vessel disease and mid/distal LAD disease. Complicated by Extraperitoneal hematoma and anemia. She was also found to have calcified proximal right common iliac artery 70-80%. 13. Echo 01/08/2021 [facility]: Low-normal LV systolic function. EF 50-55%. Hypokinetic base to mid inferior wall and posterior base. Mild to moderate AI. Moderate MR. With Dr. He Spann as an outpatient (9) Liver mass: Plan: As per HPI - follows with [facility] -Fine-needle aspiration of liver lesion indeterminate -Railroad Firer/Fireman recommended lesion surgical resection patient was deemed too high risk because of cardiac issues -No focal lesions on CT abdomen pelvis without contrast done 03/02/2021 -Consider outpatient PET/CT -Patient should continue to follow with Dr. Kevan Garcia as an outpatient (10) Pulmonary nodules: Plan: As per HPI - Follows with pulmonary - follow up CT in March -Being managed by Dr. Alejo with the [facility] pulmonary group (11) DVT prophylaxis: Plan: Anticoagulated chronically for atrial fibrillation with rivaroxaban Encourage ambulation No asymmetrical edema on examination Admission and Anticipated Discharge Date Admission Date: March 02, 2021 Subjective Attending: Dr. Lehman Impression: This is an 80-year-old female admitted 03/02/2021 for diarrhea and fatigue. She also reports some right-sided chest pain. This pain seems to migrate and is not always on the right side. Troponin is 0.020. Patient has a history of sleep apnea for which she is not on tolerant of BiPAP or CPAP. She has pulmonary nodules which have increased in size since September 2019. She had hepatic lesion which had indeterminant biopsy results from fine-needle aspiration. She has chronic atrial fibrillation on chronic anticoagulation with rivaroxaban. Past tobacco abuse history from 1958 until the mid with 1- 1/2 packs/day. Weight loss of 25 pounds over the last several months. Patient reports that her chest pain is now migrated from the right side to the left side. This seems to be focal and can be reproduced with palpation of the left 12th rib in the midclavicular region. She has no hemoptysis. She does have a dry cough. She denies any shortness of breath at the current time. At the time of my examination she was saturating well on room air. She denies any nausea or vomiting. No fever, chills, sweats, rigors. She has no other acute complaints at this time. Review of Systems Review of Systems: All systems reviewed & are unremarkable except as noted in Subjective Physical Exam Physical Exam: GENERAL : No acute distress. Pleasant sarcasm. EYES: No icterus, gaze conjugate. Pupils equal round and reactive to light NOSE: No evidence of epistaxis. MOUTH: No lesions or candidiasis. Mucosa moist NECK: Supple LUNGS: Fine crackles at the bases. Otherwise no adventitious breath sounds HEART: Irregular, irregular with a rate in the 70s. CHEST: Reproducible pain of the 12th rib in the midclavicular region. No appreciation of rib irregularity, lipoma, growth with palpation. No rash or lesion on the skin. ABDOMEN: Soft, NT, ND, BS Present EXTREMITIES: No LE edema, pedal pulses intact and equal bilaterally. NEURO: A&OX3 Results & Data Results & Data ([facility]) Vital Signs (Past 12 Hours) Vital Signs Temp Pulse Resp BP Pulse Ox Pulse Ox 03/03/21 15:44 36.4 C L 98 H 16 100/67 100 03/03/21 15:30 100 03/03/21 07:29 36.4 C L 56 L 16 137/73 100 Laboratory Results 03/03/21 06:03 03/03/21 06:03 03/02/21 14:59 Troponin I 0.020 Diagnostic Findings Abdomen/Pelvis CT 03/02/21 14:05 CT abd pelvis wo con CLINICAL INDICATION: Lower back pain, known liver cancer.. TECHNIQUE: Helical axial images of the abdomen and pelvis were obtained. Automated dose lowering techniques and/or adjustment according to patient size were utilized for this exam. This exam was performed without intravenous contrast. COMPARISON: Comparison is made to CT abdomen and pelvis 04/17/2021 FINDINGS: Lower chest: Atelectasis is seen in the left lung. There is a 6 mm nodular density in the lingula which is unchanged. Liver: Unremarkable. No focal lesions are seen. Gallbladder and biliary tree: Patient is status post cholecystectomy. No intra- or extrahepatic biliary ductal dilation. Pancreas: Unremarkable, no focal lesions. Spleen: Unremarkable. 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 Kidneys and ureters: Poorly defined 5 mm exophytic hyperdensity arising from the right kidney inferior pole may represent a proteinaceous or hemorrhagic cyst. Nonobstructive nephrolithiasis is seen on the left. Bladder: Unremarkable. Reproductive organs: A calcified fibroid is incidentally noted. Bowel: Diverticulosis is seen without evidence of diverticulitis. The appendix is not seen. Postsurgical changes are seen in the lower esophagus and stomach with a large hiatal hernia noted in this patient with history of gastrectomy and gastrojejunostomy. Lymph nodes Retroperitoneal: Unremarkable. Mesenteric: Unremarkable. Pelvic: Unremarkable. Peritoneum: Normal Vessels: Atherosclerotic calcifications are seen. Abdominal wall: Postsurgical changes are seen in the abdominal wall. Bones: Patient is status post right total hip arthroplasty. 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 IMPRESSION: 1. No evidence of acute abnormality to explain patient's back pain. There is a chronic compression fracture of L1. 2. Additional findings as above. ACT 112: Negative or not required by law. Electronically signed by: Kan Leon M.D. 03/02/2021 3:02 PM Chest X-Ray 03/02/21 14:05 XR chest 1V portable HISTORY: 80 years-old Female weak acute weakness COMPARISON: Chest radiographs 02/11/2021 TECHNIQUE: Portable AP view of the chest FINDINGS: Cardiomediastinal and hilar silhouettes are within normal limits. Prior median sternotomy. Calcified plaque the thoracic aorta. The patient is slightly rotated towards the left. No pneumothorax, pleural effusion or overt pulmonary edema. Ill-defined left lung base opacity is likely secondary to summation density. Mild chronic interstitial coarsening. Degenerative changes of the shoulders and spine. IMPRESSION: No acute process. ACT 112: Negative or not required by law. The above report was generated using voice recognition software. It may contain grammatical, syntax or spelling errors. Electronically signed by: Kian Scales M.D. 03/02/2021 3:21 PM PG Care Time/CCT Total # of Minutes Spent Total Time Spent with Patient: Total time spent is greater than 50% in coordination of care (as documented) at patient's floor/unit and/or counseling patient:40 minutes Coding Level of Care Code 18944 Subseq Hosp Care Lvl 3 Diagnoses Diarrhea R19.7 Chronic atrial fibrillation with RVR I48.20 Hypoglycemia E16.2 Chronic dyspnea R06.09 Fatigue R53.83 Abdominal pain R10.9 CKD (chronic kidney disease) N18.9 CAD (coronary artery disease) I25.10 Coronary Disease-Associated Artery/Lesion type: [place] artery [place] vs. transplanted heart: [place] heart Associated angina: without angina Liver mass R16.0 Pulmonary nodules R91.8 DVT prophylaxis Z29.9 Time Spent (min) 40 (1) CAD (coronary artery disease) Coronary Disease-Associated Artery/Lesion type: [place] artery [place] vs. transplanted heart: [place] heart Associated angina: without angina Qualified Code(s): I25.10 - Atherosclerotic heart disease of [place] coronary artery without angina pectoris
[2021-03-03] MEDS: ATORVASTATIN 40 MG TAB PO SCH (19:58)
[2021-03-03] MEDS: GABAPENTIN 300 MG CAP PO SCH (20:00)
[2021-03-03] MEDS: RIVAROXABAN 15 MG TAB PO SCH (20:02)
[2021-03-04 06:21] LABS: Basophils # (auto) 0.01 K/uL (0-0.2); Basophils % (auto) 0.2 %; Eosinophils # (auto) 0.12 K/uL (0-0.5); Hematocrit (blood only) 25.1 % (37-47); Hemoglobin 8.4 g/dL (12.0-16.0); Immature Granulocytes # (auto) 0.06 K/uL (0.00-0.02); Lymphocytes # (auto) 1.38 K/uL (1.2-3.4); Lymphocytes % (auto) 22.9 %; Mean Corpuscular Hemoglobin 33.2 pg (25-34); Mean Corpuscular Hgb Conc 33.5 g/dL (32-36); Mean Corpuscular Volume 99.2 fL (80-100); Mean Platelet Volume 10.2 fL (7.4-10.4); Monocytes # (auto) 1.16 K/uL (0.11-0.59); Monocytes % (auto) 19.2 %; Neutrophils % (auto) 54.7 %; Platelet Count 236 K/uL (130-400); RDW Standard Deviation 46.9 fL (36.4-46.3); Red Blood Count 2.53 M/uL (4.2-5.4); White Blood Count 6.03 K/uL (4.8-10.8)
[2021-03-04 06:48] LABS: BUN Creatinine Ratio 23.5 (10-20); Calcium 8.7 mg/dl (8.5-10.1); Creatinine Clr Calc Pharmacy 21.6 ml/min; Est GFR (African American) 36.3 ml/min; Est GFR (Non-African American) 31.3 ml/min; Magnesium 2.2 mg/dl (1.8-2.4); Potassium 4.4 mmol/L (3.5-5.1)
[2021-03-04] MEDS: CLOPIDOGREL BISULFATE 75 MG TAB PO SCH (08:40)
[2021-03-04] MEDS: FUROSEMIDE 40 MG TAB PO SCH (08:41)
[2021-03-04] MEDS: METOPROLOL SUCC 50MG EXT REL TAB PO SCH (08:41)
[2021-03-04] MEDS: RANOLAZINE 500 MG ER TAB PO SCH (08:41)
[2021-03-04] MEDS: levETIRAcetam 500 MG TAB PO SCH (08:41)
[2021-03-04] MEDS: ISOSORBIDE MONO EXTENDED REL 60 MG TABCR PO SCH (08:41)
[2021-03-04] MEDS: DIGOXIN 0.125 MG TAB PO SCH (08:41)
[2021-03-04] MEDS: prednisoLONE acetate 1% OP SUSP 5 ML BTL OPR SCH (08:42)
[2021-03-04] MEDS: CHOLESTYRAMINE LIGHT 4 GM PKT PO SCH (08:45)
[2021-03-04 11:03] LABS: Hemoglobin 8.9 g/dL (12.0-16.0)
[2021-03-04] MEDS: PANCREAZE (LIPASE 10,500U) CAP PO SCH ×2 (11:26)
--- NOTE | 2021-03-04 15:51 | Discharge Summary ---
Date of Service March 04, 2021 Admission HPI Per Admitting Provider 80 YOF with past medical history of: Pancreatic mass with Whipple in 2002, pulmonary and hepatic nodules with negative EGD, CABG with PCI to SVG of the RCA, CAD, TMR in 2009, HF, CKD, Afib (on Xeralto). Patient had an MRI of the abdomen peformed in 10/15/20 that revealed a 3.5 cm hepatic lesion that was highly suspicious for cancer. MRI of the abdomen 11.06.20 was 3.6 cm. These were performed at [facility], she had a biopsy done in 12/16 that was documented as indeterminate. Reportedly the patient was offered declined further investigation secondary to her cardiac risk as she has significant CAD. She is also noted to have pulmonary nodules that are being followed by [facility] pulmonary group. Due to the characteristics of her nodules, they are being followed with serial CT scans. Patient continues to have decrease in function with weakness, increase in diarrhea. She was referred today from the palliative care nurse line secondary to the diarrhea and weakness. Her Oncologist is Dr. Garcia with [facility]. Patient has met t Palliative care on 02/16/21 with probably cancer diagnosis that she would not want to pursue chemo or radiation therapy to prolong her life minimally and she would want quality over quantity. Patient also reports that she has been having chest pressure in the center to the right side of her chest, which she is unsure if this is cardiac chest pain or pain to be expected from the cancer. This has been going on for the past month, and can come at rest or with activity. She has not taken any of her NTG pills to releive this and it lasts for a minute or less per the patient. The patient continues to search for prognosis and moving towards palliative care if that is her option. Patient will be admitted for IV hydration, symptom management with cholestyramine and bland diet. Patient has had her COVID vaccination and her COVID test on admission is: NEGATIVE Admission Exam Per Admitting Provider No physical exam listed on history and physical Principal Diagnosis Diarrhea and weakness Discharge Exam GENERAL : No acute distress. Pleasant EYES: No icterus, gaze conjugate. Pupils equal round and reactive to light NOSE: No evidence of epistaxis. MOUTH: No lesions or candidiasis. Mucosa moist NECK: Supple LUNGS: Fine crackles at the bases. Otherwise no adventitious breath sounds HEART: Irregular, irregular with a rate in the 80s. CHEST: Reproducible pain of the 12th rib in the midclavicular region is resolved. No appreciation of rib irregularity, lipoma, growth with palpation. No rash or lesion on the skin. ABDOMEN: Soft, NT, ND, BS Present EXTREMITIES: No LE edema, pedal pulses intact and equal bilaterally. NEURO: A&OX3 Discharge Data Allergies Allergy/AdvReac Type Severity Reaction Status Date / Time banana Allergy Unknown HIVES/ITCHI Verified 03/02/21 17:09 NG Iodinated Contrast Media Allergy Unknown "CONTRAST"- Verified 03/02/21 17:09 HIVES/ITCHI NG povidone-iodine Allergy Unknown "drops for Verified 03/02/21 17:09 [From Betadine] eye before injection" - fox/vision trouble soap [From Betadine] Allergy Unknown "drops for Verified 03/02/21 17:09 eye before injection" - fox/vision trouble Consultations 03/02/21 16:47 ED Decision to Admit Stat 03/02/21 20:48 Consult Palliative Care Routine Ordered Studies 03/02/21 14:05 CT abd pelvis wo con Stat Abdomen/Pelvis CT 03/02/21 14:05 CT abd pelvis wo con CLINICAL INDICATION: Lower back pain, known liver cancer.. TECHNIQUE: Helical axial images of the abdomen and pelvis were obtained. Automated dose lowering techniques and/or adjustment according to patient size were utilized for this exam. This exam was performed without intravenous contrast. COMPARISON: Comparison is made to CT abdomen and pelvis 04/17/2021 FINDINGS: Lower chest: Atelectasis is seen in the left lung. There is a 6 mm nodular density in the lingula which is unchanged. Liver: Unremarkable. No focal lesions are seen. Gallbladder and biliary tree: Patient is status post cholecystectomy. No intra- or extrahepatic biliary ductal dilation. Pancreas: Unremarkable, no focal lesions. Spleen: Unremarkable. 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 Kidneys and ureters: Poorly defined 5 mm exophytic hyperdensity arising from the right kidney inferior pole may represent a proteinaceous or hemorrhagic cyst. Nonobstructive nephrolithiasis is seen on the left. Bladder: Unremarkable. Reproductive organs: A calcified fibroid is incidentally noted. Bowel: Diverticulosis is seen without evidence of diverticulitis. The appendix is not seen. Postsurgical changes are seen in the lower esophagus and stomach with a large hiatal hernia noted in this patient with history of gastrectomy and gastrojejunostomy. Lymph nodes Retroperitoneal: Unremarkable. Mesenteric: Unremarkable. Pelvic: Unremarkable. Peritoneum: Normal Vessels: Atherosclerotic calcifications are seen. Abdominal wall: Postsurgical changes are seen in the abdominal wall. Bones: Patient is status post right total hip arthroplasty. 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 IMPRESSION: 1. No evidence of acute abnormality to explain patient's back pain. There is a chronic compression fracture of L1. 2. Additional findings as above. ACT 112: Negative or not required by law. Electronically signed by: Kan Leon M.D. 03/02/2021 3:02 PM Chest X-Ray 03/02/21 14:05 XR chest 1V portable HISTORY: 80 years-old Female weak acute weakness COMPARISON: Chest radiographs 02/11/2021 TECHNIQUE: Portable AP view of the chest FINDINGS: Cardiomediastinal and hilar silhouettes are within normal limits. Prior median sternotomy. Calcified plaque the thoracic aorta. The patient is slightly rotated towards the left. No pneumothorax, pleural effusion or overt pulmonary edema. Ill-defined left lung base opacity is likely secondary to summation density. M ild chronic interstitial coarsening. Degenerative changes of the shoulders and spine. IMPRESSION: No acute process. ACT 112: Negative or not required by law. The above report was generated using voice recognition software. It may contain grammatical, syntax or spelling errors. Electronically signed by: Kian Scales M.D. 03/02/2021 3:21 PM Hospital Course (1) Diarrhea: Acute on chronic- patient also has bouts of constipation that she also struggles with - diarrhea immediate following eating 3-5 minutes and multiple times per day over the past 23-48 hours - HCO3 19- consistent - Cholestyramine added with history of Whipple -We will add Creon with meals on discharge -Frequency has decreased -Continue to monitor output -Continue protein supplement at home (2) Chronic atrial fibrillation with RVR: Rate controlled with diltiazem and metoprolol - Continue Xarelto (3) Hypoglycemia: 76 on admission to [facility]- recheck following oral intake 43 - hypoglycemia protocol -Random glucose 135 this morning Follow serial labs (4) Chronic dyspnea: Patient is followed with Dr. Leach in the past for obstructive sleep apnea Nontolerant of CPAP/BiPAP Pulmonary nodules have been noted since September 2019 There has been some growth of the groundglass opacities and patient is scheduled for follow-up CT with IV contrast * Will hold on this at this time and get a PET/CT to look for FDG uptake Empirically started on trilogy as an outpatient -continue with ICS, AC, LABA Pulmonary function testing as an outpatient SaO2 adequate on room air Continue supplemental oxygen to maintain SaO2 greater than 90% (5) Fatigue: Multifactorial - Support IVF nutritional intake There is a question of malignancy with the patient. Hepatic lesion evaluated with fine-needle aspiration at [place] with indeterminate findings. Patient also has multiple pulmonary nodules which have been followed since September [address] chest has been ordered Will order outpatient PET/CT to look for FDG avidity 25 pound weight loss over the past several months Patient following with Dr. Kevan Garcia for hematological issues related to iron deficiency anemia Continue outpatient work-up with Dr. Garcia (6) Abdominal pain: Multifactorial with likely carcinoma and diarrhea Consider PET/CT as listed above to rule out malignancy Improved today (7) CKD (chronic kidney disease): Creatinine improved to baseline today with a creatinine of 1.5 - follow BMP - avoid nephrotoxic medications (8) CAD (coronary artery disease): Cardiac catheterization 01/06/2021 [facility]: Proximal LAD 20-30%. Mid LAD 50-60%, involving ostium of moderate D2. Distal LAD 80%. D2 60-70% ostial. Left to left collaterals to circumflex. [id number] collaterals. 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 RCA not visualized previously documented 100% proximal occlusion. SVG to RCA 99% stenosis just proximal to anastomosis with distal RCA with BRIAN 2 flow. Mid PDA 70%. Underwent PCI of SVG to RCA with 3.5 x 15 mm brenda. Recommended medical management of residual RCA branch vessel disease and mid/distal LAD disease. Complicated by Extraperitoneal hematoma and anemia. She was also found to have calcified proximal right common iliac artery 70-80%. 13. Echo 01/08/2021 [facility]: Low-normal LV systolic function. EF 50-55%. Hypokinetic base to mid inferior wall and posterior base. Mild to moderate AI. Moderate MR. Continue to follow follow with Dr. He Spann as an outpatient (9) Liver mass: As per HPI - follows with [facility] -Fine-needle aspiration of liver lesion indeterminate -Distillery Supervisor recommended lesion surgical resection patient was deemed too high risk because of cardiac issues -No focal lesions on CT abdomen pelvis without contrast done 03/02/2021 -Consider outpatient PET/CT -Patient should continue to follow with Dr. Kevan Garcia as an outpatient (10) Pulmonary nodules: As per HPI - Follows with pulmonary - follow up CT in March -Being managed by Dr. Alejo with the [facility] pulmonary group -Outpatient PET/CT ordered (11) DVT prophylaxis: Anticoagulated chronically for atrial fibrillation with rivaroxaban Encourage ambulation No asymmetrical edema on examination Total Time Total Time Spent Total Time Spent (In Minutes): 40 Discharge Plan Discharge Items Patient Disposition: Home - Self-Care Reason For Visit: DIARRHEA WEAKNESS Discharge Diagnosis: Diarrhea/weakness Activity: Resume your previous activity Lifting: Gradually increase as tolerated Bathing: No limitations Exercise/Sports: Gradually increase as tolerated Weightbearing: Full weightbearing Non-emergency contact: Primary Care Provider, Oncologist and Conduit Helper Call non-emergency contact if: your symptoms worsen and you have a fever Follow-up/Referrals: Jocelynn Mauricio MD [Primary Care Provider] - 03/11/21 2:00 pm (Dr Winn) Diet: Heart Healthy Diet Comment: You should continue to use protein supplements 3 times a day as tolerated Addtl Attending Provider Instructions: You were admitted with diarrhea and weakness. This seems to improved over the course of your hospital stay. The physical therapy and Occupational Therapy team feel that you are appropriate to go home and continue home exercises. At this point, would recommend you continue with protein supplement 3 times daily as tolerated. You should intentionally increase your daily caloric intake as well. Your medical history was reviewed including previous scans and notes from your oncologist office, Dr. Garcia. There is a question about the pulmonary nodules as well as the liver lesion being malignant or benign. At this time, we are attempting to schedule a PET/CT which hopefully will clarify some of the concern regarding these findings. If the PET/CT is not approved or if you should decide not to have the study completed, you should follow through with your CT scan of the chest with contrast as ordered by Dr. Alejo. If you do have the PET/CT completed, you should review the results of that with Dr. Garcia prior to having any other imaging completed. Please keep all outpatient appointments including your pulmonary function testing with the pulmonary office. Take all medications as prescribed. Pending Studies at Discharge: No Stand-Alone Forms: My [facility] Medications and DC Order Prescriptions: New cholestyramine-aspartame [Cholestyramine Light] 4 gram Powder In Packet 4 g PO BID@1000,2200 Qty: 60 RF: 0 Creon 36,000-114,000- 180,000 unit Capsule,Delayed Release(Dr/Ec) 1 cap PO AC Qty: 90 RF: 0 Continued (DME) blood-glucose meter [OneTouch Verio Flex meter] Misc See Rx Instructions .ROUTE .MEDSUPPLY Qty: 1 RF: 0 furosemide [Lasix] 40 mg tablet 40 mg PO QAM Qty: 90 RF: 3 gabapentin 300 mg capsule 900 mg PO HS 90 Days Qty: 270 RF: 1 levetiracetam [Keppra] 500 mg tablet 500 mg PO BID 90 Days Qty: 180 RF: 1 atorvastatin [Lipitor] 40 mg tablet 40 mg PO HS Qty: 90 RF: 3 calcitriol 0.25 mcg capsule 0.25 mcg PO MOWEFR Qty: 36 RF: 3 nitroglycerin 0.4 mg tablet, sublingual 0.4 mg sublingual UD PRN (Reason: Chest Pain) Qty: 25 RF: 5 zoledronic [id number]-ykehb [Reclast] 5 mg/100 mL piggyback 5 mg IV .every other year RF: 0 (DME) Portable Oxygen Misc See Rx Instructions .Route Qty: 1 RF: 0 metoprolol succinate 200 mg tablet extended release 24 hr 200 mg PO UD RF: 0 (DME) OneTouch Verio test strips Strip See Rx Instructions .ROUTE .MEDSUPPLY Qty: 10 RF: 0 ranolazine [Ranexa] 500 mg tablet extended release 12 hr 500 mg PO BID Qty: 60 RF: 5 isosorbide mononitrate 120 mg tablet extended release 24 hr 240 mg PO QAM Qty: 180 RF: 3 copper gluconate 5 mg PO QPM RF: 0 mecobalamin (vitamin B12) 1 dose UD RF: 0 PreserVision AREDS 7,160-113-100 gsnn-wu-ujoy Tablet 2 tab PO BIDM RF: 0 potassium chloride 8 mEq tablet extended release 16 meq PO QAM RF: 0 biotin 1,000 mcg Tablet,Chewable 1,000 mcg PO DAILY RF: 0 epinephrine 0.3 mg/0.3 mL auto-injector 0.3 mg IM UD PRN (Reason: anaphylaxis) RF: 0 Xarelto 20 mg tablet 20 mg PO QPM RF: 0 Ubrelvy 100 mg tablet 100 mg PO UD PRN (Reason: migraine headache) RF: 0 clopidogrel 75 mg Tablet 75 mg PO QAM Qty: 30 RF: 6 digoxin 125 mcg (0.125 mg) tablet 125 mcg PO Q2D RF: 0 Discontinued prednisolone acetate [Pred Forte] 1 % drops,suspension 1 drops OPR QAM RF: 0 No Action (DME) Oxygen Home Liters Per Minute See Rx Instructions .Route Qty: 1 RF: 0 Discharge Orders: Discharge Order (Routine); Ordered 03/04/21 Ordered By: Cipriano Lindsay/Other Patient Handouts: Preventing Deep Vein Thrombosis Admission Data Admit Date/Time: 03/02/21 17:37 Attending Provider: Misael Lehman Admit Provider: Reynold Austin Primary Care Provider: Jocelynn Mauricio Other Providers: Reynold Austin ; Zulma Gaffney Other Interventions: Discharge Summary Assessment (RN) Last Done: 03/04/21 16:14 Supervising Physician Co-Signing Physician Notes Patient seen and examined at bedside. I discussed discharge planning with TONYA Solo and patient. Obtained and reviewed hospital course with patient and obtained a physical exam. I reviewed above note and agree with it. Patient will be discharged with creon to help with diarrhea. Coding Level of Care Code D/C DAY MANAGEMENT >30 MINS Diagnoses Diarrhea R19.7 Chronic atrial fibrillation with RVR I48.20 Hypoglycemia E16.2 Chronic dyspnea R06.09 Fatigue R53.83 Abdominal pain R10.9 CKD (chronic kidney disease) N18.9 CAD (coronary artery disease) I25.10 Associated angina: without angina Coronary Disease-Associated Artery/Lesion type: [place] artery [place] vs. transplanted heart: [place] heart Liver mass R16.0 Pulmonary nodules R91.8 DVT prophylaxis Z29.9 Time Spent (min) 40
== END 2021-03-04 17:19 | disposition home or self-care (01) | DRG 436 ==
LOC: ED 12:54 → SUATTDRO 17:37 → 3N 17:37

== ENCOUNTER 2021-06-21 17:10 | Inpatient (IN) ==
[2021-06-21] MEDS ORDERED: SODIUM CHLORIDE 0.9% 500 ML IV ONE (17:41)
[2021-06-21] MEDS ORDERED: ACETAMINOPHEN 1,000 MG/100 ML VIAL IV STA (17:41)
--- NOTE | 2021-06-21 17:59 | Emergency Department Note ---
Impression & Plan Generalized weakness, Traumatic open wound of left lower leg with delayed healing, Pressure ulcer of coccygeal region, stage 3, Ambulatory dysfunction, Recurrent falls, Hypomagnesemia, UTI (urinary tract infection), CKD (chronic kid rosa elena disease) ED Provider Note NAME: ISIDRO GRAY AGE: 80 SEX: F ARRIVES VIA: Ambulance INFORMANT: Patient ED PROVIDER(S): Socrates Linder MD CHIEF COMPLAINT: Weakness, ambulatory dysfunction, recurrent falls, decubitus ulcer. PLAN: Disposition: Admit MEDICAL DECISION MAKING: The patient is a pleasant 80-year-old woman with a past medical history of atrial fibrillation, ANDREY, CAD, history of PCI, CKD, chronic hypoxemic respiratory failure, intrahepatic cholangiocarcinoma who presents to the emergency department from home for evaluation of worsening generalized weakness over the past weeks to months with recurrent falls, chest pain yesterday for which she took nitroglycerin, chronic decubitus ulcer/wound, fall today with inability to ambulate subsequently. Patient is a poor historian. She reports she was seen by the wound clinic on Monday but feels her wound have not improved in the past several days. Daughter did arrive to the bedside and provided additional history expressed her worry of the patient living by herself where she has had persistent weakness for weeks and at times will not eat or take her medications. She is worried that the patient cannot function safely at home at this time. The patient was seen in the wound clinic on 06/18 for traumatic left lower extremity wound with delayed healing as well as chronic pressure ulcer in the coccygeal region, stage III. Patient's left lower extremity wound occurs in the setting of a fall on 05/15 with a laceration where she was seen the emergency department and the wound was closed with Dermabond and Steri-Strips. She was referred for arterial studies of her lower extremities. Per records the patient did have a culture performed to her PCP and this grew Pseudomonas and was prescribed Levaquin however had yet to pick it up. On arrival the patient is chronically ill-appearing but no acute distress, afebrile with stable vital signs. She appears clinically dry. She has no midline tenderness to palpation or step-offs of the CT or L-spine though she reports diffuse back pain throughout. She does have severe kyphosis of the thor acic spine. She has pain/limited range of motion actively with her right hip which she reports is chronic but has no pain with passive range of motion. She has normal active and passive range of motion of her left hip. Pelvis is stable. She has no focal neurologic deficits. Stage III pressure ulcer of the coccyx measuring approximately 1 cm with stable overlying eschar. Left lower leg wounds with healing proximal pretibial wound without significant erythema warmth or edema. The lower ulcerated wound is without any significant surrounding erythema. Scant slough present underlying Xylocaine and pink granulation tissue appreciated. EKG without overt acute ischemia. CXR negative for acute cardiopulmonary process. WBC and platelets normal limits. H/H similar to prior range of values. INR 1.7. Chemistry without metabolic acidosis. Creatinine 2.5 within prior injury values though on higher end of range in the setting of CKD. Glucose is 69 however patient does not appear symptomatic. Magnesium 1.4 with repletion initiated with magnesium sulfate which does contain dextrose LFTs are unremarkable. Troponin negative/undetectable. CPK within normal limits. Lipase not elevated. UA is suspicious for infection with WBCs and 1+ bacteria albeit with epithelial cells present. CT imaging performed. Small bilateral pleural effusions seen. Otherwise, CT head, Cspine, chest and abd/pelvis negative for acute process. Given the patient's previous wound culture growing Pseudomonas, blood cultures were drawn and empiric cefepime was ordered. Given the larger picture where the patient is weak with failure to thrive at home and concerns for patient's ability to safely function at home on behalf of the daughter they did agree with plan for admission. Case was discussed with TAMIKO Perales hospitalist, who will evaluate the patient for admission. Triage Nursing notes reviewed and agree them. Prior medical records reviewed Vital Signs: reviewed and remarkable for no significant abnormalities Differential diagnosis: Infection, dehydration, metabolic abnormality, hypo/hyperglycemia, electrolyte disturbance, anemia, hypoxia, cardiac sources, intracerebral event, toxicologic, neurologic, as well as other pathologies. ER treatment provided: See below. Diagnostics interpreted by me: ECG: Atrial fibrillation, 61bpm, no ectopy, RBBB, No overt ST elevation or depression. Cardiac Monitoring: An order for continuous cardiac monitoring was placed and demonstrated Atrial fibrillation, 61bpm, no ectopy. Laboratory studies: See below Imaging studies: See below Consultation(s): Case was discussed with Dr. Lehman [facility] hospitalist, who will evaluate the patient for admission. HPI: The patient is a pleasant 80-year-old woman with a past medical history of atrial fibrillation, ANDREY, CAD, history of PCI, CKD, chronic hypoxemic respiratory failure, intrahepatic cholangiocarcinoma who presents to the emergency department from home for evaluation of worsening generalized weakness over the past weeks to months with recurrent falls, chest pain yesterday for which she took nitroglycerin, chronic decubitus ulcer/wound, fall today with inability to ambulate subsequently. Patient is a poor historian. She reports she was seen by the wound clinic on Monday but feels her wound have not improved in the past several days. Daughter did arrive to the bedside and provided additional history expressed her worry of the patient living by herself where she has had persistent weakness for weeks and at times will not eat or take her medications. She is worried that the patient cannot function safely at home at this time. ROS: See above HPI for pertinent positives & negatives. A total of 10 systems reviewed and were otherwise negative. PAST MEDICAL HISTORY:See Below PAST SURGICAL HISTORY:See Below FAMILY HISTORY:See Below SOCIAL HISTORY:See Below HOME MEDICATIONS:See Below ALLERGIES:See Below VITALS:See Below PHYSICAL EXAMINATION: GENERAL: Awake, alert, chronically ill-appearing, in no distress HENT: Normocephalic, atraumatic. Oropharynx with dry mucous membranes and otherwise unremarkable. EYES: Normal conjunctiva. Sclera non-icteric. NECK: Supple. No nuchal rigidity. FROM. No JVD. RESPIRATORY: Clear to auscultation. CARDIAC: Regular rate, normal rhythm. Extremities warm and well perfused. Pulses equal. ABDOMEN: Soft, non-distended. No tenderness to palpation. No rebound or guarding. No masses. RECTAL: Deferred. MUSCULOSKELETAL: Chest examination reveals no tenderness. The back is symmetrical on inspection without obvious abnormality. There is no CVA tenderness to palpation. No midline tenderness to palpation or step-offs of the CT or L-spine though she reports diffuse back pain throughout. Severe kyphosis of the thoracic spine. Pain/limited range of motion actively with her right hip which she reports is chronic but has no pain with passive range of motion. Normal active and passive range of motion of her left hip. Pelvis is stable. LOWER EXTREMITIES: Calves are equal size bilaterally and non-tender. NEURO: No focal sensory or motor deficits noted. SKIN: Stage III pressure ulcer of the coccyx measuring approximately 1 cm with stable overlying eschar. Left lower leg wounds with healing proximal pretibial wound without significant erythema warmth or edema. The lower ulcerated wound is without any significant surrounding erythema. Scant sloughing present underlying Xylocaine and pink granulation tissue appreciated. Otherwise, No rash or jaundice noted. Socrates Linder MD Past Med/Surg History Medical History Benign essential tremor CAD (coronary artery disease) CABG x 1 vessel 2015 Cerebellar infarct Follows with neuro= "Prior cerebellar stroke without residual deficits" - continue ASA and statin Chronic diastolic congestive heart failure Chronic hypoxemic respiratory failure Chronic kidney disease (CKD), stage III (moderate) Chronic low back pain Copper deficiency Corneal dystrophy CVA (cerebral vascular accident) NO RESIDUAL AT AGE 50 Diabetes Endothelial corneal dystrophy Family history of reaction to anesthesia SISTER - HIVES, N/V GERD (gastroesophageal reflux disease) History of cardioversion 1978 & AUGUST 2020 History of MA (myocardial infarction) 1978 History of vertigo Hyperlipemia Hypertension Intrahepatic cholangiocarcinoma Liver cancer DX AUGUST 2020 - [facility] Liver mass DX JULY 2020 Macular degeneration Mitral regurgitation Mild to moderate per 2019 ECHO Multiple pulmonary nodules determined by computed tomography of lung Osteoporosis Osteoporosis with fracture fx ribs from falling, NO CURRENT FRACTURES Pancreatic tumor had surgery removal of head Paroxysmal atrial fibrillation and flutter--On Xarelto , DX 2018 - HX CARDIOVERSION AUGUST 2020 Peripheral neuropathy Pulmonary hypertension PASP 30-40mmHg Pulmonary nodule monitored yearly Sleep apnea Spondylosis Temporal lobe epilepsy Follows with neuro Started on Keppra in Spring 2019 with no further events since that time Continue Keppra per 08/10/20 neuro note Weakness Surgical History Gastric bypass status for obesity H/O abdominoplasty WITH NECK REPAIRED WELL H/O cataract extraction right and left H/O ovarian cystectomy H/O thumb surgery left and right H/O Whipple procedure History of appendectomy History of breast biopsy several both sides History of corneal transplant right eye History of ear surgery 1967, LEFT History of liver biopsy History of resection of pancreas head of pancreas removed 2009 History of total right hip replacement History of transmyocardial revascularization Hx of cardiac cath 2013, AUGUST 2015, october 2020, november 2020 Hx of cholecystectomy S/P CABG (coronary artery bypass graft) 2016 S/P cholecystectomy S/P tonsillectomy and adenoidectomy S/P trigger finger release left thumb x3, one surgery on right Status post right knee replacement Family History Sister Breast cancer 2 sisters Diabetes 2 sisters Heart disease Cancer 2 sisters Father Myocardial infarction Heart disease Hypertension Brother Myocardial infarction Diabetes Heart disease 2 brothers Hypertension Mother Non-Hodgkin lymphoma Stroke Cancer Grandfather Diabetes Heart disease Denies family history of Ovarian cancer Prostate cancer Colorectal cancer Social History Smoking Status: Former smoker Age Started Using Tobacco: 16; Age Quit Using Tobacco: 50; packs per day: 1.5; Cigarettes Per Day: 30; Second Hand Exposure: No; Hx Alcohol Use: No Hx Substance Use: No Preferred Language: Kuwaiti Communication Ability: Effective Visual Impairment: Limited Hearing Ability: Normal Electromedical Equipment Repairer Required: No Beliefs That Will Affect Care: None marital status: / Current Living Situation: Family Current Living Situation Comment: 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 current occupational status: retired Feels Safe at Home: Yes Childhood Exposure to Second-Hand Smoke: No caffeine: No during the past year weight has: decreased > 10 lbs Dental Care, Regularly: Yes Physical Activity Frequency: Does not Exercise Seatbelt Use: always Sunscreen Use: Yes Do you think of yourself as: straight/heterosexual Gender Identity: Female Assistive Devices: Glasses, Oxygen - at Night and Walker Allergies Allergies Allergy/AdvReac Type Severity Reaction Status Date / Time banana Allergy Unknown HIVES/ITCHI Verified 06/21/21 20:34 NG Iodinated Contrast Media Allergy Unknown "CONTRAST"- Verified 06/21/21 20:34 HIVES/ITCHI NG povidone-iodine Allergy Unknown "drops for Verified 06/21/21 20:34 [From Betadine] eye before injection" - fox/vision trouble soap [From Betadine] Allergy Unknown "drops for Verified 06/21/21 20:34 eye before injection" - fox/vision trouble Home Meds Home Medications Medication Instructions Recorded Confirmed vitamins A,C,P-gsow-fizihe 7,160 1 tab PO BIDM 07/03/19 06/21/21 unit-113 mg-100 unit tablet (PreserVision AREDS) potassium chloride 8 mEq 16 meq PO QAM 09/08/20 06/21/21 tablet,extended release biotin 1,000 mcg chewable tablet 1,000 mcg PO DAILY 12/09/20 06/21/21 ubrogepant 100 mg tablet (Ubrelvy) 100 mg PO DAILY PRN 12/09/20 06/21/21 prednisolone acetate 1 % eye 1 drp OPR QAM ml 03/24/21 06/21/21 drops,suspension calcitriol 0.25 mcg capsule 0.25 mcg PO 3XWK 05/15/21 06/21/21 cyanocobalamin (vitamin B-12) 0 mcg IM MONTHLY 05/15/21 06/21/21 1,000 mcg/mL injection solution rivaroxaban 20 mg tablet (Xarelto) 20 mg PO QPM 05/15/21 06/21/21 isosorbide mononitrate 120 mg 240 mg PO QAM tab 06/18/21 06/21/21 tablet,extended release 24 hr Afibercept 1 mg INJ MONTHLY 06/21/21 levofloxacin 750 mg tablet 750 mg PO DAILY 06/21/21 06/21/21 Previous Rx's Medication Instructions Recorded gabapentin 300 mg capsule 900 mg PO HS 90 Days #270 cap 08/26/20 atorvastatin 40 mg tablet (Lipitor) 40 mg PO HS #90 tab 08/28/20 nitroglycerin 0.4 mg sublingual 0.4 mg SUBLINGUAL UD PRN #25 tab 01/04/21 tablet clopidogrel 75 mg tablet 75 mg PO QAM #30 tab 01/09/21 ranolazine 500 mg tablet,extended 500 mg PO BID #60 tab 04/05/21 release,12 hr (Ranexa) furosemide 40 mg tablet (Lasix) 40 mg PO QAM #90 tab 04/07/21 Oxygen Home #1 ea 04/21/21 metoprolol succinate 200 mg See Rx Instructions .ROUTE 06/16/21 tablet,extended release 24 hr .COMPLEX #135 tab Results & Data (ED) Vital Signs Vital Signs - 24 hr 06/21/21 17:55 06/21/21 18:00 06/21/21 19:18 Temperature 36.5 C Temperature Source Oral Pulse Rate 61 73 79 Pulse Rhythm Regular Pulse Strength Normal Respiratory Rate 14 18 19 Respiratory Effort / Characteristics Non-Labored Respiratory Depth Normal Blood Pressure 118/70 118/70 135/56 L Blood Pressure Mean 86 86 82 Blood Pressure Position Sitting Pulse Oximetry 100 100 100 Oxygen Delivery Method Nasal Cannula Oxygen Flow Rate 2 Sepsis Recent Fever Within 48 Hours No Sepsis New/Unexplained Change in Mental Status No Sepsis Action Taken by Nursing No Action Required 06/21/21 19:30 06/21/21 20:00 06/21/21 21:00 Temperature Temperature Source Pulse Rate 65 64 58 L Pulse Rhythm Pulse Strength Respiratory Rate 18 16 16 Respiratory Effort / Characteristics Respiratory Depth Blood Pressure 108/56 L 126/60 106/53 L Blood Pressure Mean 73 82 70 Blood Pressure Position Pulse Oximetry 98 100 100 Oxygen Delivery Method Oxygen Flow Rate Sepsis Recent Fever Within 48 Hours Sepsis New/Unexplained Change in Mental Status Sepsis Action Taken by Nursing 06/21/21 21:30 06/21/21 22:00 06/21/21 22:36 Temperature Temperature Source Pulse Rate 59 L 61 62 Pulse Rhythm Pulse Strength Respiratory Rate 14 14 16 Respiratory Effort / Characteristics Respiratory Depth Blood Pressure 121/57 L 111/52 L 80/41 L Blood Pressure Mean 78 71 54 Blood Pressure Position Pulse Oximetry 100 98 99 Oxygen Delivery Method Oxygen Flow Rate Sepsis Recent Fever Within 48 Hours Sepsis New/Unexplained Change in Mental Status Sepsis Action Taken by Nursing 06/21/21 22:44 Temperature Temperature Source Pulse Rate 62 Pulse Rhythm Pulse Strength Respiratory Rate 18 Respiratory Effort / Characteristics Respiratory Depth Blood Pressure 80/44 L Blood Pressure Mean 56 Blood Pressure Position Pulse Oximetry 100 Oxygen Delivery Method Oxygen Flow Rate Sepsis Recent Fever Within 48 Hours Sepsis New/Unexplained Change in Mental Status Sepsis Action Taken by Nursing Laboratory Data Attestation: I reviewed the patient's lab results. Result diagrams: 06/21/21 18:22 06/21/21 18:22 Lab Results 06/21/21 06/21/21 06/21/21 Range/Units 18:22 18:22 18:22 WBC 6.16 (4.8-10.8) K/uL RBC 2.47 L (4.2-5.4) M/uL Hgb 8.0 L (12.0-16.0) g/dL Hct 25.0 L (37-47) % MCV 101.2 H (80-100) fL MCH 32.4 (25-34) pg MCHC 32.0 (32-36) g/dL RDW Std Deviation 52.0 H (36.4-46.3) fL RDW Coeff of Argenis 14.1 (11.5-14.5) % Plt Count 265 (130-400) K/uL MPV 9.6 (7.4-10.4) fL Immature Gran % (Auto) 0.2 % Neut % (Auto) 67.5 % Lymph % (Auto) 16.7 % Taney % (Auto) 15.1 % Eos % (Auto) 0.3 % Baso % (Auto) 0.2 % Neut # (Auto) 4.16 (1.4-6.5) K/uL Lymph # (Auto) 1.03 L (1.2-3.4) K/uL Taney # (Auto) 0.93 H (0.11-0.59) K/uL Eos # (Auto) 0.02 (0-0.5) K/uL Baso # (Auto) 0.01 (0-0.2) K/uL Immature Gran # (Auto) 0.01 (0.00-0.02) K/uL PT 16.7 H (9.0-12.0) Seconds INR 1.7 H (0.9-1.1) Sodium 140 (136-145) mmol/L Potassium 3.6 (3.5-5.1) mmol/L Chloride 110 H (98-107) mmol/L Carbon Dioxide 21 (21-32) mmol/L Anion Gap 9 (3-11) BUN 28 H (6-23) mg/dl Creatinine 2.51 H (0.6-1.2) mg/dl Est Cr Clr Drug Dosing 13.3 ml/min Est GFR ( Amer) 20.1 ml/min Est GFR (Non-Af Amer) 17.4 ml/min BUN/Creatinine Ratio 11.2 (10-20) Glucose 69 L (70-99(Fasting)) mg/dl Lactate (0.4-2.0) mmol/L Calcium 7.5 L (8.5-10.1) mg/dl Phosphorus 3.0 (2.5-4.9) mg/dl Magnesium 1.4 L (1.7-2.4) mg/dl Total Bilirubin 0.5 (0.2-1.0) mg/dl AST 30 (13-39) U/L ALT 18 (7-52) U/L Alkaline Phosphatase 103 (34-104) U/L Total Creatine Kinase 58 (26-192) U/L Troponin I < 0.03 (0-0.04) ng/ml Total Protein 5.8 L (6.0-8.3) gm/dl Albumin 3.0 L (3.4-5.0) gm/dl Globulin 2.8 (2.5-4.0) gm/dl Albumin/Globulin Ratio 1.1 (0.9-2) Lipase 12 (11-82) U/L Procalcitonin (0-0.5) ng/ml TSH (0.300-4.500) uIu/ml Urine Color Urine Appearance (Clear) Urine pH (4.5-7.5) Ur Specific [place] (1.000-1.030) Urine Protein (Negative) Urine Glucose (UA) (Negative) Urine Ketones (Negative) Urine Blood (Negative) Urine Nitrite (Negative) Urine Bilirubin (Negative) Urine Urobilinogen (Negative) Ur Leukocyte Esterase (Negative) Urine WBC (Auto) (0-5) /hpf Urine RBC (Auto) (0-4) /hpf U Hyaline Cast (Auto) (0-5) /lpf U Epithel Cells (Auto) (0-5) /lpf Urine Bacteria (Auto) (Negative) SARS-CoV-2, RNA, NAAT (NEGATIVE) Blood Type Antibody Screen 06/21/21 06/21/21 06/21/21 Range/Units 18:22 18:51 19:37 WBC (4.8-10.8) K/uL RBC (4.2-5.4) M/uL Hgb (12.0-16.0) g/dL Hct (37-47) % MCV (80-100) fL MCH (25-34) pg MCHC (32-36) g/dL RDW Std Deviation (36.4-46.3) fL RDW Coeff of Argneis (11.5-14.5) % Plt Count (130-400) K/uL MPV (7.4-10.4) fL Immature Gran % (Auto) % Neut % (Auto) % Lymph % (Auto) % Taney % (Auto) % Eos % (Auto) % Baso % (Auto) % Neut # (Auto) (1.4-6.5) K/uL Lymph # (Auto) (1.2-3.4) K/uL Taney # (Auto) (0.11-0.59) K/uL Eos # (Auto) (0-0.5) K/uL Baso # (Auto) (0-0.2) K/uL Immature Gran # (Auto) (0.00-0.02) K/uL PT (9.0-12.0) Seconds INR (0.9-1.1) Sodium (136-145) mmol/L Potassium (3.5-5.1) mmol/L Chloride (98-107) mmol/L Carbon Dioxide (21-32) mmol/L Anion Gap (3-11) BUN (6-23) mg/dl Creatinine (0.6-1.2) mg/dl Est Cr Clr Drug Dosing ml/min Est GFR ( Amer) ml/min Est GFR (Non-Af Amer) ml/min BUN/Creatinine Ratio (10-20) Glucose (70-99(Fasting)) mg/dl Lactate 1.2 (0.4-2.0) mmol/L Calcium (8.5-10.1) mg/dl Phosphorus (2.5-4.9) mg/dl Magnesium (1.7-2.4) mg/dl Total Bilirubin (0.2-1.0) mg/dl AST (13-39) U/L ALT (7-52) U/L Alkaline Phosphatase (34-104) U/L Total Creatine Kinase (26-192) U/L Troponin I (0-0.04) ng/ml Total Protein (6.0-8.3) gm/dl Albumin (3.4-5.0) gm/dl Globulin (2.5-4.0) gm/dl Albumin/Globulin Ratio (0.9-2) Lipase (11-82) U/L Procalcitonin (0-0.5) ng/ml TSH 2.799 (0.300-4.500) uIu/ml Urine Color Yellow Urine Appearance Turbid A (Clear) Urine pH 5.0 (4.5-7.5) Ur Specific [place] 1.012 (1.000-1.030) Urine Protein Trace H (Negative) Urine Glucose (UA) Negative (Negative) Urine Ketones Negative (Negative) Urine Blood 1+ H (Negative) Urine Nitrite Negative (Negative) Urine Bilirubin Negative (Negative) Urine Urobilinogen Negative (Negative) Ur Leukocyte Esterase 3+ H (Negative) Urine WBC (Auto) >30 H (0-5) /hpf Urine RBC (Auto) 0-4 (0-4) /hpf U Hyaline Cast (Auto) 1-5 (0-5) /lpf U Epithel Cells (Auto) >30 H (0-5) /lpf Urine Bacteria (Auto) 1+ H (Negative) SARS-CoV-2, RNA, NAAT (NEGATIVE) Blood Type Antibody Screen 06/21/21 06/21/21 06/21/21 Range/Units 19:37 20:17 21:55 WBC (4.8-10.8) K/uL RBC (4.2-5.4) M/uL Hgb (12.0-16.0) g/dL Hct (37-47) % MCV (80-100) fL MCH (25-34) pg MCHC (32-36) g/dL RDW Std Deviation (36.4-46.3) fL RDW Coeff of Argenis (11.5-14.5) % Plt Count (130-400) K/uL MPV (7.4-10.4) fL Immature Gran % (Auto) % Neut % (Auto) % Lymph % (Auto) % Taney % (Auto) % Eos % (Auto) % Baso % (Auto) % Neut # (Auto) (1.4-6.5) K/uL Lymph # (Auto) (1.2-3.4) K/uL Taney # (Auto) (0.11-0.59) K/uL Eos # (Auto) (0-0.5) K/uL Baso # (Auto) (0-0.2) K/uL Immature Gran # (Auto) (0.00-0.02) K/uL PT (9.0-12.0) Seconds INR (0.9-1.1) Sodium (136-145) mmol/L Potassium (3.5-5.1) mmol/L Chloride (98-107) mmol/L Carbon Dioxide (21-32) mmol/L Anion Gap (3-11) BUN (6-23) mg/dl Creatinine (0.6-1.2) mg/dl Est Cr Clr Drug Dosing ml/min Est GFR ( Amer) ml/min Est GFR (Non-Af Amer) ml/min BUN/Creatinine Ratio (10-20) Glucose (70-99(Fasting)) mg/dl Lactate (0.4-2.0) mmol/L Calcium (8.5-10.1) mg/dl Phosphorus (2.5-4.9) mg/dl Magnesium (1.7-2.4) mg/dl Total Bilirubin (0.2-1.0) mg/dl AST (13-39) U/L ALT (7-52) U/L Alkaline Phosphatase (34-104) U/L Total Creatine Kinase (26-192) U/L Troponin I (0-0.04) ng/ml Total Protein (6.0-8.3) gm/dl Albumin (3.4-5.0) gm/dl Globulin (2.5-4.0) gm/dl Albumin/Globulin Ratio (0.9-2) Lipase (11-82) U/L Procalcitonin < 0.05 (0-0.5) ng/ml TSH (0.300-4.500) uIu/ml Urine Color Urine Appearance (Clear) Urine pH (4.5-7.5) Ur Specific [place] (1.000-1.030) Urine Protein (Negative) Urine Glucose (UA) (Negative) Urine Ketones (Negative) Urine Blood (Negative) Urine Nitrite (Negative) Urine Bilirubin (Negative) Urine Urobilinogen (Negative) Ur Leukocyte Esterase (Negative) Urine WBC (Auto) (0-5) /hpf Urine RBC (Auto) (0-4) /hpf U Hyaline Cast (Auto) (0-5) /lpf U Epithel Cells (Auto) (0-5) /lpf Urine Bacteria (Auto) (Negative) SARS-CoV-2, RNA, NAAT NEGATIVE (NEGATIVE) Blood Type A Negative Antibody Screen NEGATIVE Administered Medications Sodium Chloride (Nss 1000ml) 1,000 mls @ 999 mls/hr IV .Q1H1M ONE Stop: 06/21/21 23:59 Last Admin: 06/21/21 23:11 Dose: 999 mls/hr Documented by: [id number] Discontinued Medications Cefepime HCl (Cefepime 2,000 Mg/20 Ml Vial) Confirm Administered Dose 2,000 mg .ROUTE .STK-MED ONE Stop: 06/21/21 22:28 Last Admin: 06/21/21 22:30 Dose: Not Given Documented by: [id number] Sodium Chloride (Nss) 500 mls @ 999 mls/hr IV .Q31M ONE Stop: 06/21/21 18:11 Last Infusion: 06/21/21 19:28 Dose: 0 mls/hr Documented by: [id number] Admin: 06/21/21 18:53 Dose: 999 mls/hr Documented by: [id number] Acetaminophen (Ofirmev) 1,000 mg in 100 mls @ 400 mls/hr IV NOW STA Stop: 06/21/21 17:55 Last Infusion: 06/21/21 19:48 Dose: 0 mls/hr Documented by: [id number] Admin: 06/21/21 19:18 Dose: 400 mls/hr Documented by: [id number] Magnesium Sulfate/Dextrose (Magnesium Sulfate / D5w) 1 gm in 100 mls @ 100 mls/hr IV Q1H HOMAR Stop: 06/21/21 21:02 Last Infusion: 06/21/21 22:36 Dose: 0 mls/hr Documented by: [id number] Admin: 06/21/21 21:32 Dose: 100 mls/hr Documented by: [id number] Infusion: 06/21/21 21:19 Dose: 100 mls/hr Documented by: [id number] Admin: 06/21/21 20:19 Dose: 100 mls/hr Documented by: [id number] Cefepime HCl (Maxipime) 2,000 mg in 20 mls @ 5 mls/min IV NOW STA; Protocol Stop: 06/21/21 19:53 Last Admin: 06/21/21 22:30 Dose: 5 mls/min Documented by: [id number] Imaging Data Radiologist's Impression: Abdomen/Pelvis CT 06/21/21 17:41 CT abd pelvis wo con CLINICAL HISTORY: back pain fall TECHNIQUE: Helical axial images of the abdomen and pelvis were obtained. Automated dose lowering techniques and/or adjustment according to patient size were utilized for this exam. This exam was performed without intravenous contrast. COMPARISON: Comparison is made to CT abdomen pelvis 03/02/2021 FINDINGS: Lower chest: For findings above the diaphragm, please see CT chest performed same day. Liver: Unremarkable. No focal lesions are seen. Gallbladder and biliary tree: Patient is status post cholecystectomy. The bile duct is enlarged measuring 9 mm. Pneumobilia is seen. Pancreas: Unremarkable, no focal lesions. Spleen: Unremarkable. Adrenals: Bilateral adrenal thickening is unchanged from prior exam. 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 Kidneys and ureters: Nonobstructive nephrolithiasis is seen. Bladder: Unremarkable. Reproductive organs: Multiple calcified fibroids are seen. Bowel: Diverticulosis is seen without evidence of diverticulitis. The appendix is normal. A hiatal hernia is seen with postsurgical changes of gastric surgery. Lymph nodes Retroperitoneal: Unremarkable. Mesenteric: Unremarkable. Pelvic: Unremarkable. Peritoneum: Normal. Vessels: Unremarkable. Abdominal wall: Unremarkable. Bones: A right total hip arthroplasty is seen. Interval stability of L1 compression deformity. Sclerotic lesions in the right pelvis are unchanged from prior exam and may represent bone islands. IMPRESSION: No evidence of acute fracture is seen. ACT 112: Negative or not required by law. Electronically signed by: Kan Leon M.D. 06/21/2021 7:[address] 06/21/21 17:41 CT cervical spine wo con CLINICAL HISTORY: pain fall TECHNIQUE: Multidetector row helical CT of the cervical spine was performed without administration of intravenous contrast. Coronal and sagittal reformations were obtained. Automated dose lowering techniques and/or adjustment according to patient size were utilized for this exam. Comparison: Comparison is made to CT cervical spine 02/05/2019 FINDINGS: No acute fractures or subluxations are identified. Degenerative changes are seen in the visualized spine. The alignment is normal. Large thyroid nodules are seen, left greater than right. If not previously characterized, nonemergent thyroid ultrasound can be performed. IMPRESSION: Degenerative changes without evidence of acute bony injury. ACT 112: Negative or not required by law. Electronically signed by: Kan Leon M.D. 06/21/2021 7:[address] 06/21/21 17:41 CT chest diagnostic wo con CLINICAL HISTORY: back pain fall TECHNIQUE: Multidetector row helical CT of the chest was performed. Coronal and sagittal reformations were obtained. Automated dose lowering techniques and/or adjustment according to patient size were utilized for this exam. Comparison: Comparison is made to CT chest 05/06/2021 FINDINGS: Lungs and pleura: There are small bilateral pleural effusions. Heart and pericardium: There is cardiomegaly without evidence of pericardial effusion. Vessels: Severe atherosclerotic changes in the aorta and coronary arteries. Pulmonary trunk measures 40 mm in diameter. Mediastinum and matias: A vague 13 mm right lower paratracheal lymph node is unchanged from prior exam. Chest wall and lower neck: Prominent thyroid nodules are seen, left greater than right. These are similar overall in size to prior exam. Abdomen: For findings below the diaphragm, please refer to CT of the abdomen dated the same. Bones: Degenerative changes in the thoracic spine. Old compression fractures of T11 and L1 are unchanged. Old healed rib fractures are seen. IMPRESSION: 1. No evidence of acute fracture. Old compression fractures are unchanged. 2. Small bilateral pleural effusions with associated atelectasis. 3. Thyroid nodules are again seen. If not previously characterized, nonemergent ultrasound can be performed. ACT 112: Negative or not required by law. Electronically signed by: Kan Leon M.D. 06/21/2021 7:36 PM Chest X-Ray 06/21/21 17:41 XR chest 1V portable CLINICAL HISTORY: Atypical chest pain TECHNIQUE: Single frontal radiograph of the chest was obtained. Comparison: Comparison is made to rib series 06/03/2021 FINDINGS: No lines and tubes are seen. Calcified aortic knob is seen. The lungs are clear. No evidence of pleural effusion or pneumothorax. IMPRESSION: No acute chest disease. ACT 112: Negative or not required by law. Electronically signed by: Kan Leon M.D. 06/21/2021 6:[address] 06/21/21 17:41 CT head/brain wo con CLINICAL HISTORY: pain fall Technique: Contiguous axial CT images of the head were acquired from the base of the skull to the vertex without intravenous contrast administration. Images were viewed in brain, subdural and bone windows. Automated dose lowering techniques and/or adjustment according to patient size were utilized for this exam. Comparison: Comparison is made to CT head 10/13/2019 Findings: Areas of decreased attenuation are present in the periventricular and subcortical white matter bilaterally consistent with small vessel ischemic disease. Generalized cerebral atrophy with commensurate enlargement of the ventricles, sulci, and cisterns is also present. There is no acute intracranial hemorrhage or evidence of acute territorial infarction. No shift of the midline structures, mass effect, or extra-axial abnormalities are shown. Atherosclerotic calcifications are present in the intracranial segments of the internal carotid arteries. Encephalomalacia in the left anterior supraventricular white matter is unchanged. Imaged portions of the paranasal sinuses and mastoid air cells are clear. The orbits appear normal. There are no acute fractures of the calvaria or scalp swelling. Impression: No acute intracranial hemorrhage, no evidence of acute territorial infarction or other acute intracranial disease process. ACT 112: Negative or not required by law. Electronically signed by: Kan Leon M.D. 06/21/2021 7:27 PM Discharge Plan Visit Data Chief Complaint: Illness ED Provider: Socrates Linder Discharge Problem: Generalized weakness, Traumatic open wound of left lower leg with delayed healing, Pressure ulcer of coccygeal region, stage 3, Ambulatory dysfunction, Recurrent falls, Hypomagnesemia, UTI (urinary tract infection) Discharge Problem: UTI (urinary tract infection) Qualifiers: Urinary tract infection type: site unspecified Hematuria presence: without hematuria Qualified Code(s): N39.0 - Urinary tract infection, site not specified
--- NOTE | 2021-06-21 18:25 | XRay Report ---
XR chest 1V portable CLINICAL HISTORY: Atypical chest pain TECHNIQUE: Single frontal radiograph of the chest was obtained. Comparison: Comparison is made to rib series 06/03/2021 FINDINGS: No lines and tubes are seen. Calcified aortic knob is seen. The lungs are clear. No evidence of pleur al effusion or pneumothorax. IMPRESSION: No acute chest disease. ACT 112: Negative or not required by law. Electronically signed by: Kan Leon M.D. 06/21/2021 6:23 PM
[2021-06-21 18:34] LABS: Basophils # (auto) 0.01 K/uL (0-0.2); Basophils % (auto) 0.2 %; Eosinophils # (auto) 0.02 K/uL (0-0.5); Eosinophils % (auto) 0.3 %; Immature Granulocytes # (auto) 0.01 K/uL (0.00-0.02); Immature Granulocytes % (auto) 0.2 %; Lymphocytes # (auto) 1.03 K/uL (1.2-3.4); Lymphocytes % (auto) 16.7 %; Mean Corpuscular Hemoglobin 32.4 pg (25-34); Mean Corpuscular Volume 101.2 fL (80-100); Mean Platelet Volume 9.6 fL (7.4-10.4); Monocytes # (auto) 0.93 K/uL (0.11-0.59); Monocytes % (auto) 15.1 %; Neutrophils # (auto) 4.16 K/uL (1.4-6.5); Neutrophils % (auto) 67.5 %; Platelet Count 265 K/uL (130-400); RDW Coefficient of Variation 14.1 % (11.5-14.5); Red Blood Count 2.47 M/uL (4.2-5.4); White Blood Count 6.16 K/uL (4.8-10.8)
[2021-06-21 18:43] LABS: INR 1.7 (0.9-1.1); Prothrombin Time 16.7 Seconds (9.0-12.0)
[2021-06-21 19:00] LABS: Alanine Aminotransferase 18 U/L (7-52); Albumin Globulin Ratio 1.1 (0.9-2); Alkaline Phosphatase 103 U/L (34-104); Anion Gap 9 (3-11); Aspartate Aminotransferase 30 U/L (13-39); BUN Creatinine Ratio 11.2 (10-20); Bilirubin,Total 0.5 mg/dl (0.2-1.0); Blood Urea Nitrogen 28 mg/dl (6-23); Calcium 7.5 mg/dl (8.5-10.1); Carbon Dioxide 21 mmol/L (21-32); Chloride 110 mmol/L (98-107); Creatine Kinase 58 U/L (26-192); Creatinine Clr Calc Pharmacy 13.3 ml/min; Est GFR (African American) 20.1 ml/min; Est GFR (Non-African American) 17.4 ml/min; Globulin 2.8 gm/dl (2.5-4.0); Glucose 69 mg/dl (70-99(Fasting)); Lipase 12 U/L (11-82); Magnesium 1.4 mg/dl (1.7-2.4); Potassium 3.6 mmol/L (3.5-5.1); Sodium 140 mmol/L (136-145); Total Protein 5.8 gm/dl (6.0-8.3); Troponin I < 0.03 ng/ml (0-0.04)
[2021-06-21 19:08] LABS: Appearance Urine Turbid (Clear); Bacteria Urine Automated 1+ (Negative); Bilirubin Urine Negative (Negative); Blood Urine 1+ (Negative); Color Urine Yellow; Epithelial Cell Urine Auto >30 /lpf (0-5); Glucose Urine UA Negative (Negative); Ketones Urine Negative (Negative); Leukocyte Esterase Urine 3+ (Negative); Nitrite Urine Negative (Negative); Protein Urine Trace (Negative); RBC Urine Automated 0-4 /hpf (0-4); Specific Gravity Urine 1.012 (1.000-1.030); Urobilinogen Urine Negative (Negative); WBC Urine Automated >30 /hpf (0-5)
--- NOTE | 2021-06-21 19:28 | CT Scan Report ---
CT head/brain wo con CLINICAL HISTORY: pain fall Technique: Contiguous axial CT images of the head were acquired from the base of the skull to the minerva collin without intravenous contrast administration. Images were viewed in brain, subdural and bone [facility]. Automated dose lowering techniques and/or adjustment according to patient size were utilized for this exam. Comparison: Comparison is made to CT head 10/13/2019 Findings: Areas of decreased attenuation are present in the periventricular and subcortical white matter bilate rally consistent with small vessel ischemic disease. Generalized cerebral atrophy with commensurate e nlargement of the ventricles, sulci, and cisterns is also present. There is no acute intracranial hem orrhage or evidence of acute territorial infarction. No shift of the midline structures, mass effect, or extra-axial abnormalities are shown. Atherosclerotic calcifications are present in the intracran ial segments of the internal carotid arteries. Encephalomalacia in the left anterior supraventricular white matter is unchanged. Imaged portions of the paranasal sinuses and mastoid air cells are clear. The orbits appear normal. There are no acute fractures of the calvaria or scalp swelling. Impression: No acute intracranial hemorrhage, no evidence of acute territorial infarction or other acute intracra nial disease process. ACT 112: Negative or not required by law. Electronically signed by: Kan Leon M.D. 06/21/2021 7:27 PM
--- NOTE | 2021-06-21 19:33 | CT Scan Report ---
CT cervical spine wo con CLINICAL HISTORY: pain fall TECHNIQUE: Multidetector row helical CT of the cervical spine was performed without administration of intravenous contrast. Coronal and sagittal reformations were obtained. Automated dose lowering techn iques and/or adjustment according to patient size were utilized for this exam. Comparison: Comparison is made to CT cervical spine 02/05/2019 FINDINGS: No acute fractures or subluxations are identified. Degenerative changes are seen in the visualized sp ine. The alignment is normal. Large thyroid nodules are seen, left greater than right. If not previou sly characterized, nonemergent thyroid ultrasound can be performed. IMPRESSION: Degenerative changes without evidence of acute bony injury. ACT 112: Negative or not required by law. Electronically signed by: Kan Leon M.D. 06/21/2021 7:31 PM
--- NOTE | 2021-06-21 19:37 | CT Scan Report ---
CT chest diagnostic wo con CLINICAL HISTORY: back pain fall TECHNIQUE: Multidetector row helical CT of the chest was performed. Coronal and sagittal reformations were obtained. Automated dose lowering techniques and/or adjustment according to patient size were u tilized for this exam. Comparison: Comparison is made to CT chest 05/06/2021 FINDINGS: Lungs and pleura: There are small bilateral pleural effusions. Heart and pericardium: There is cardiomegaly without evidence of pericardial effusion. Vessels: Severe atherosclerotic changes in the aorta and coronary arteries. Pulmonary trunk measures 40 mm in diameter. Mediastinum and matias: A vague 13 mm right lower paratracheal lymph node is unchanged from prior exam. Chest wall and lower neck: Prominent thyroid nodules are seen, left greater than right. These are sim ilar overall in size to prior exam. Abdomen: For findings below the diaphragm, please refer to CT of the abdomen dated the same. Bones: Degenerative changes in the thoracic spine. Old compression fractures of T11 and L1 are unchan ged. Old healed rib fractures are seen. IMPRESSION: 1. No evidence of acute fracture. Old compression fractures are unchanged. 2. Small bilateral pleural effusions with associated atelectasis. 3. Thyroid nodules are again seen. If not previously characterized, nonemergent ultrasound can be pe rformed. ACT 112: Negative or not required by law. Electronically signed by: Kan Leon M.D. 06/21/2021 7:36 PM
--- NOTE | 2021-06-21 19:43 | CT Scan Report ---
CT abd pelvis wo con CLINICAL HISTORY: back pain fall TECHNIQUE: Helical axial images of the abdomen and pelvis were obtained. Automated dose lowering tech niques and/or adjustment according to patient size were utilized for this exam. This exam was perfor med without intravenous contrast. COMPARISON: Comparison is made to CT abdomen pelvis 03/02/2021 FINDINGS: Lower chest: For findings above the diaphragm, please see CT chest performed same day. Liver: Unremarkable. No focal lesions are seen. Gallbladder and biliary tree: Patient is status post cholecystectomy. The bile duct is enlarged measu ring 9 mm. Pneumobilia is seen. Pancreas: Unremarkable, no focal lesions. Spleen: Unremarkable. Adrenals: Bilateral adrenal thickening is unchanged from prior exam. 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 Kidneys and ureters: Nonobstructive nephrolithiasis is seen. Bladder: Unremarkable. Reproductive organs: Multiple calcified fibroids are seen. Bowel: Diverticulosis is seen without evidence of diverticulitis. The appendix is normal. A hiatal he rnia is seen with postsurgical changes of gastric surgery. Lymph nodes Retroperitoneal: Unremarkable. Mesenteric: Unremarkable. Pelvic: Unremarkable. Peritoneum: Normal. Vessels: Unremarkable. Abdominal wall: Unremarkable. Bones: A right total hip arthroplasty is seen. Interval stability of L1 compression deformity. Sclero tic lesions in the right pelvis are unchanged from prior exam and may represent bone islands. IMPRESSION: No evidence of acute fracture is seen. ACT 112: Negative or not required by law. Electronically signed by: Kan Leon M.D. 06/21/2021 7:42 PM
[2021-06-21] MEDS ORDERED: CEFEPIME 2,000 MG/20 ML VIAL IV STA (19:50)
[2021-06-21] MEDS: MAGNESIUM SULFATE / D5W 1 GM/100 ML BAG IV SCH ×2 (20:19→21:32)
--- NOTE | 2021-06-21 20:34 | History & Physical Report ---
Date of Service June 21, 2021 Assessment & Plan (1) Ambulatory dysfunction: Plan: 80-year-old woman with a past medical history of atrial fibrillation, ANDREY, CAD, history of PCI, CKD, chronic hypoxemic respiratory failure, intrahepatic cholangiocarcinoma who presents to the emergency department from home for evaluation of worsening generalized weakness over the past weeks to months with recurrent falls, chronic decubitus ulcer/wound, fall today with inability to ambulate subsequently. (1) Ambulatory Dysfunction -progressive lower extremity weakness with recurrent falls over the past few months likely secondary to failure to thrive vs dehydration vs hypoglycemia -imaging in ER showed no acute fractures, intracranial hemorrhage, or infarct -fasting BSG in ER 69 but asymptomatic; mag 1.4, replenished in ER + dextrose, repeat magnesium and BSG in AM -PT/OT ordered -she will likely need to go to acute rehab and/or SNF upon discharge (2) Ulcerative wounds -present on left lower extremity and coccyx region -LLE wound culture on 06/15 grew pseudomonas -went to wound care clinic on 06/18, was started on Levaquin -given cefepime dose in ED, will cont. -ESR and CRP am labs to assess for osteomyelitis, consider imaging and/or bone biopsy -wound care consulted (3) JASMINA on CKD stage 4 -Cr 2.5; baseline ~1.7; appears dry on physical exam -given 500mL NSS in ER initially -additional 1L NSS bolus given due to hypotension, will reassess s/p infusion -cont. home lasix -repeat BMP am lab (4) Asymptomatic bacteruria -incidental finding on urinalysis -positive leuk esterase -WBC WNL -no treatment indicated but on cefepime for ulcerative wound (5) Anemia -Hgb 8.0, MCV 101; h/o B12 deficiency on monthly injections; no signs of active bleeding -blood consent form signed, type and screen performed -folate and B12 am lab -repeat CBC am lab (5) Atrial fibrillation, chronic -rate controlled on anticoagulation -INR 1.7 -cont. home xarelto and metoprolol (6) Neuropathy -cont. home gabapentin (7) CAD -cont. home metorprolol, renolazine, plavix, isosorbide mononitrate DVT ppx: xarelto FEN/GI: heart healthy Code Status: DNI/DNR Dispo: med/surg (2) Lower extremity weakness: (3) Traumatic open wound of left lower leg with delayed healing: (4) Hypomagnesemia: (5) UTI (urinary tract infection): (6) Recurrent falls: (7) Pressure ulcer of coccygeal region, stage 3: (8) Atrial fibrillation, persistent: (9) CAD (coronary artery disease): (10) Acute kidney injury superimposed on CKD: History of Present Illness Chief Complaint: Weakness, ambulatory dysfunction, recurrent falls, decubitus ulcer Primary Care Provider: Jocelynn Mauricio MD 80-year-old woman with a past medical history of atrial fibrillation, ANDREY, CAD, history of PCI, CKD, chronic hypoxemic respiratory failure, intrahepatic cholangiocarcinoma who presents to the emergency department from home for evaluation of worsening generalized weakness over the past weeks to months with recurrent falls, chronic decubitus ulcer/wound, fall today with inability to ambulate subsequently.Patient is a poor historian.Daughter at bedside to provide additional history. Patient uses walker to ambulate. Over the past few months she has had progressive lower extremity weakness with recurrent falls. She last fell this morning and feels that this is the weakest she has ever been. The daughter is worried that the patient cannot function safely at home at this time. Patient also presenting with decubitus ulcer on coccyx and ulcerative lesions on left lower extremity. Patient fell on 05/15/2021 and developed a laceration to the left leg. She was seen in the ED and the wound was closed using Dermabond and Steri-Strips. Patient reports the wound has been slow to heal since that time. She did see her PCP last week and wound culture of left lower extremity was grew Pseudomonas. Patient has been on Levaquin for the past 4 days. She was referred for arterial studies of her lower extremities. Allergies Allergy/AdvReac Type Severity Reaction Status Date / Time banana Allergy Unknown HIVES/ITCHI Verified 06/21/21 20:34 NG Iodinated Contrast Media Allergy Unknown "CONTRAST"- Verified 06/21/21 20:34 HIVES/ITCHI NG povidone-iodine Allergy Unknown "drops for Verified 06/21/21 20:34 [From Betadine] eye before injection" - fox/vision trouble soap [From Betadine] Allergy Unknown "drops for Verified 06/21/21 20:34 eye before injection" - fox/vision trouble Home Medications Medication Instructions Recorded Confirmed Type vitamins A,C,K-[id number] 7,160 1 tab PO BIDM 07/03/19 06/21/21 History unit-113 mg-100 unit tablet (PreserVision AREDS) gabapentin 300 mg capsule 900 mg PO HS 90 Days #270 cap 08/26/20 06/21/21 Rx atorvastatin 40 mg tablet (Lipitor) 40 mg PO HS #90 tab 08/28/20 06/21/21 Rx potassium chloride 8 mEq 16 meq PO QAM 09/08/20 06/21/21 History tablet,extended release biotin 1,000 mcg chewable tablet 1,000 mcg PO DAILY 12/09/20 06/21/21 History ubrogepant 100 mg tablet (Ubrelvy) 100 mg PO DAILY PRN 12/09/20 06/21/21 History nitroglycerin 0.4 mg sublingual 0.4 mg SUBLINGUAL UD PRN #25 tab 01/04/21 06/21/21 Rx tablet clopidogrel 75 mg tablet 75 mg PO QAM #30 tab 01/09/21 06/21/21 Rx prednisolone acetate 1 % eye 1 drp OPR QAM ml 03/24/21 06/21/21 History drops,suspension ranolazine 500 mg tablet,extended 500 mg PO BID #60 tab 04/05/21 06/21/21 Rx release,12 hr (Ranexa) furosemide 40 mg tablet (Lasix) 40 mg PO QAM #90 tab 04/07/21 06/21/21 Rx Oxygen Home #1 ea 04/21/21 06/18/21 Rx calcitriol 0.25 mcg capsule 0.25 mcg PO 3XWK 05/15/21 06/21/21 History cyanocobalamin (vitamin B-12) 0 mcg IM MONTHLY 05/15/21 06/21/21 History 1,000 mcg/mL injection solution rivaroxaban 20 mg tablet (Xarelto) 20 mg PO QPM 05/15/21 06/21/21 History metoprolol succinate 200 mg See Rx Instructions .ROUTE 06/16/21 06/21/21 Rx tablet,extended release 24 hr .COMPLEX #135 tab isosorbide mononitrate 120 mg 240 mg PO QAM tab 06/18/21 06/21/21 History tablet,extended release 24 hr Afibercept 1 mg INJ MONTHLY 06/21/21 History levofloxacin 750 mg tablet 750 mg PO DAILY 06/21/21 06/21/21 History Past Med/Surg History Medical History Benign essential tremor CAD (coronary artery disease) CABG x 1 vessel 2016 Cerebellar infarct Follows with neuro= "Prior cerebellar stroke without residual deficits" - continue ASA and statin Chronic diastolic congestive heart failure Chronic hypoxemic respiratory failure Chronic kidney disease (CKD), stage III (moderate) Chronic low back pain Copper deficiency Corneal dystrophy CVA (cerebral vascular accident) NO RESIDUAL AT AGE 50 Diabetes Endothelial corneal dystrophy Family history of reaction to anesthesia SISTER - HIVES, N/V GERD (gastroesophageal reflux disease) History of cardioversion 1978 & AUGUST 2020 History of IN (myocardial infarction) 1978 History of vertigo Hyperlipemia Hypertension Intrahepatic cholangiocarcinoma Liver cancer DX AUGUST 2020 - [facility] Liver mass DX JULY 2020 Macular degeneration Mitral regurgitation Mild to moderate per 2019 ECHO Multiple pulmonary nodules determined by computed tomography of lung Osteoporosis Osteoporosis with fracture fx ribs from falling, NO CURRENT FRACTURES Pancreatic tumor had surgery removal of head Paroxysmal atrial fibrillation and flutter--On Xarelto , DX 2018 - HX CARDIOVERSION AUGUST 2020 Peripheral neuropathy Pulmonary hypertension PASP 30-40mmHg Pulmonary nodule monitored yearly Sleep apnea Spondylosis Temporal lobe epilepsy Follows with neuro Started on Keppra in Spring 2019 with no further events since that time Continue Keppra per 08/10/20 neuro note Weakness Surgical History Gastric bypass status for obesity H/O abdominoplasty WITH NECK REPAIRED WELL H/O cataract extraction right and left H/O ovarian cystectomy H/O thumb surgery left and right H/O Whipple procedure History of appendectomy History of breast biopsy several both sides History of corneal transplant right eye History of ear surgery 1967, LEFT History of liver biopsy History of resection of pancreas head of pancreas removed 2009 History of total right hip replacement History of transmyocardial revascularization Hx of cardiac cath 2013, AUGUST 2015, october 2020, november 2020 Hx of cholecystectomy S/P CABG (coronary artery bypass graft) 2016 S/P cholecystectomy S/P tonsillectomy and adenoidectomy S/P trigger finger release left thumb x3, one surgery on right Status post right knee replacement Family History Sister Breast cancer 2 sisters Diabetes 2 sisters Heart disease Cancer 2 sisters Father Myocardial infarction Heart disease Hypertension Brother Myocardial infarction Diabetes Heart disease 2 brothers Hypertension Mother Non-Hodgkin lymphoma Stroke Cancer Grandfather Diabetes Heart disease Denies family history of Ovarian cancer Prostate cancer Colorectal cancer Social History Smoking Status: Former smoker Age Started Using Tobacco: 16; Age Quit Using Tobacco: 50; packs per day: 1.5; Cigarettes Per Day: 30; Second Hand Exposure: No; Hx Alcohol Use: No Hx Substance Use: No Preferred Language: Icelandic Communication Ability: Effective Visual Impairment: Limited Hearing Ability: Normal Manufacturing Test Engineer Required: No Beliefs That Will Affect Care: None marital status: / Current Living Situation: Family Current Living Situation Comment: [facility] 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 denies fevers HEENT: denies congestion, sore throat CV: denies chest pain, palpitations Resp: +SOB. denies cough GI: +abdominal pain (chronic), +fluctuating constipation/diarrhea (chronic). denies nausea, vomiting : denies pain with urination, change in urinary frequency, urinary incontinence Musculoskeletal: +recurrent falls (last one earlier today) Skin: denies new rash Neuro: +lower extremity weakness, +numbness/tingling left leg Physical Exam Physical Exam: Constitutional: in no acute distress, pleasant and normal affect. Vitals as below. Lungs: Clear to auscultation bilaterally with good effort. Cardiac: Regular rate and rhythm.No murmurs.No extremity edema. Abdomen: Bowel sounds present. Soft, mildly tender lower abdominal quadrants on palpation, nondistended.No guarding. No masses. MSK: Quad strength 3/5 bilaterally. Ankle dorsiflexion 5/5 bilaterally. Full ROM of hips. Negative straight leg raise on left. Unable to passively raise right leg. Full sensation to touch bilaterally. Skin: Wound #1: left lower anterior leg ~2x2in with slough and presence of subcutaneous tissue, surrounding skin shows no erythema. Wound #2: left lower leg ~1.3cm covered in eschar with no drainage. Wound #3: coccyx ~1x1cm, base is yellow with drainage and mildly surrounding erythema. Neurologic: 2+ patellar tendon and ankle reflexes bilaterally. Results & Data Results & Data ([facility]) Vital Signs (Past 12 Hours) Vital Signs Temp Pulse Resp BP Pulse Ox 06/21/21 19:18 79 19 135/56 L 100 06/21/21 18:00 73 18 118/70 100 06/21/21 17:55 36.5 C 61 14 118/70 100 Laboratory Results Laboratory Results WBC 6.16 K/uL (4.8-10.8) 06/21/21 18: RBC 2.47 M/uL (4.2-5.4) L 06/21/21 18:22 Hgb 8.0 g/dL (12.0-16.0) L 06/21/21 18: Hct 25.0 % (37-47) L 06/21/21 18: MCV 101.2 fL (80-100) H 06/21/21 18:22 MCH 32.4 pg (25-34) 06/21/21 18: MCHC 32.0 g/dL (32-36) 06/21/21 18: RDW Std Deviation 52.0 fL (36.4-46.3) H 06/21/21 18: RDW Coeff of Argenis 14.1 % (11.5-14.5) 06/21/21: Plt Count 265 K/uL (130-400) 06/21/21 18: MPV 9.6 fL (7.4-10.4) 06/21/21 18: Immature Gran % (Auto) 0.2 % 06/21/21 18: Neut % (Auto) 67.5 % 06/21/21 18: Lymph % (Auto) 16.7 % 06/21/21 18:22 [place] % (Auto) 15.1 % 06/21/21 18:22 Eos % (Auto) 0.3 % 06/21/21 18:22 Baso % (Auto) 0.2 % 06/21/21 18:22 Neut # (Auto) 4.16 K/uL (1.4-6.5) 06/21/21 18:22 Lymph # (Auto) 1.03 K/uL (1.2-3.4) L 06/21/21 18:22 [place]iken # (Auto) 0.93 K/uL (0.11-0.59) H 06/21/21 18:22 Eos # (Auto) 0.02 K/uL (0-0.5) 06/21/21 18:22 Baso # (Auto) 0.01 K/uL (0-0.2) 06/21/21 18: Immature Gran # (Auto) 0.01 K/uL (0.00-0.02) 06/21/21 18:22 PT 16.7 Seconds (9.0-12.0) H 06/21/21 18:22 INR 1.7 (0.9-1.1) H 06/21/21 18:22 Sodium 140 mmol/L (136-145) 06/21/21 18:22 Potassium 3.6 mmol/L (3.5-5.1) 06/21/21 18:22 Chloride 110 mmol/L (98-107) H 06/21/21 18:22 Carbon Dioxide 21 mmol/L (21-32) 06/21/21 18:22 Anion Gap 9 (3-11) 06/21/21 18:22 BUN 28 mg/dl (6-23) H 06/21/21 18:22 Creatinine 2.51 mg/dl (0.6-1.2) H 06/21/21 18:22 Est Cr Clr Drug Dosing 13.3 ml/min 06/21/21 18:22 Est GFR ( Amer) 20.1 ml/min 06/21/21 18:22 Est GFR (Non-Af Amer) 17.4 ml/min 06/21/21 18:22 BUN/Creatinine Ratio 11.2 (10-20) 06/21/21 18:22 Glucose 69 mg/dl (70-99(Fasting)) L 06/21/21 18:22 Lactate 1.2 mmol/L (0.4-2.0) 06/21/21 19:37 Calcium 7.5 mg/dl (8.5-10.1) L 06/21/21 18:22 Phosphorus 3.0 mg/dl (2.5-4.9) 06/21/21 18:22 Magnesium 1.4 mg/dl (1.7-2.4) L 06/21/21 18:22 Total Bilirubin 0.5 mg/dl (0.2-1.0) 06/21/21 18:22 AST 30 U/L (13-39) 06/21/21 18:22 ALT 18 U/L (7-52) 06/21/21 18:22 Alkaline Phosphatase 103 U/L (34-104) 06/21/21 18:22 Total Creatine Kinase 58 U/L (26-192) 06/21/21 18:22 Troponin I < 0.03 ng/ml (0-0.04) 06/21/21 18:22 Total Protein 5.8 gm/dl (6.0-8.3) L 06/21/21 18:22 Albumin 3.0 gm/dl (3.4-5.0) L 06/21/21 18:22 Globulin 2.8 gm/dl (2.5-4.0) 06/21/21 18:22 Albumin/Globulin Ratio 1.1 (0.9-2) 06/21/21 18: Lipase 12 U/L (11-82) 06/21/21 18:22 Procalcitonin < 0.05 ng/ml (0-0.5) 06/21/21 19:37 TSH 2.799 uIu/ml (0.300-4.500) 06/21/21 18:22 Urine Color Yellow 06/21/21 18:51 Urine Appearance Turbid (Clear) A 06/21/21 18:51 Urine pH 5.0 (4.5-7.5) 06/21/21 18:51 Ur Specific Jackson 1.012 (1.000-1.030) 06/21/21 18:51 Urine Protein Trace (Negative) H 06/21/21 18:51 Urine Glucose (UA) Negative (Negative) 06/21/21 18:51 Urine Ketones Negative (Negative) 06/21/21 18:51 Urine Blood 1+ (Negative) H 06/21/21 18:51 Urine Nitrite Negative (Negative) 06/21/21 18:51 Urine Bilirubin Negative (Negative) 06/21/21 18:51 Urine Urobilinogen Negative (Negative) 06/21/21 18:51 Ur Leukocyte Esterase 3+ (Negative) H 06/21/21 18:51 Urine WBC (Auto) >30 /hpf (0-5) H 06/21/21 18:51 Urine RBC (Auto) 0-4 /hpf (0-4) 06/21/21 18:51 U Hyaline Cast (Auto) 1-5 /lpf (0-5) 06/21/21 18:51 U Epithel Cells (Auto) >30 /lpf (0-5) H 06/21/21 18:51 Urine Bacteria (Auto) 1+ (Negative) H 06/21/21 18:51 SARS-CoV-2, RNA, NAAT NEGATIVE (NEGATIVE) 06/21/21 20:17 Blood Type A Negative 06/21/21 21:55 Antibody Screen NEGATIVE 06/21/21 21:55 Impressions Abdomen/Pelvis CT 06/21/21 17:41 CT abd pelvis wo con CLINICAL HISTORY: back pain fall TECHNIQUE: Helical axial images of the abdomen and pelvis were obtained. Automated dose lowering techniques and/or adjustment according to patient size were utilized for this exam. This exam was performed without intravenous contrast. COMPARISON: Comparison is made to CT abdomen pelvis 03/02/2021 FINDINGS: Lower chest: For findings above the diaphragm, please see CT chest performed same day. Liver: Unremarkable. No focal lesions are seen. Gallbladder and biliary tree: Patient is status post cholecystectomy. The bile duct is enlarged measuring 9 mm. Pneumobilia is seen. Pancreas: Unremarkable, no focal lesions. Spleen: Unremarkable. Adrenals: Bilateral adrenal thickening is unchanged from prior exam. 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 Kidneys and ureters: Nonobstructive nephrolithiasis is seen. Bladder: Unremarkable. Reproductive organs: Multiple calcified fibroids are seen. Bowel: Diverticulosis is seen without evidence of diverticulitis. The appendix is normal. A hiatal hernia is seen with postsurgical changes of gastric surgery. Lymph nodes Retroperitoneal: Unremarkable. Mesenteric: Unremarkable. Pelvic: Unremarkable. Peritoneum: Normal. Vessels: Unremarkable. Abdominal wall: Unremarkable. Bones: A right total hip arthroplasty is seen. Interval stability of L1 compression deformity. Sclerotic lesions in the right pelvis are unchanged from prior exam and may represent bone islands. IMPRESSION: No evidence of acute fracture is seen. ACT 112: Negative or not required by law. Electronically signed by: Kan Leon M.D. 06/21/2021 7:[address] 06/21/21 17:41 CT cervical spine wo con CLINICAL HISTORY: pain fall TECHNIQUE: Multidetector row helical CT of the cervical spine was performed without administration of intravenous contrast. Coronal and sagittal refo rmations were obtained. Automated dose lowering techniques and/or adjustment according to patient size were utilized for this exam. Comparison: Comparison is made to CT cervical spine 02/05/2019 FINDINGS: No acute fractures or subluxations are identified. Degenerative changes are seen in the visualized spine. The alignment is normal. Large thyroid nodules are seen, left greater than right. If not previously characterized, nonemergent thyroid ultrasound can be performed. IMPRESSION: Degenerative changes without evidence of acute bony injury. ACT 112: Negative or not required by law. Electronically signed by: Kan Leon M.D. 06/21/2021 7:[address] 06/21/21 17:41 CT chest diagnostic wo con CLINICAL HISTORY: back pain fall TECHNIQUE: Multidetector row helical CT of the chest was performed. Coronal and sagittal reformations were obtained. Automated dose lowering techniques and/or adjustment according to patient size were utilized for this exam. Comparison: Comparison is made to CT chest 05/06/2021 FINDINGS: Lungs and pleura: There are small bilateral pleural effusions. Heart and pericardium: There is cardiomegaly without evidence of pericardial effusion. Vessels: Severe atherosclerotic changes in the aorta and coronary arteries. Pulmonary trunk measures 40 mm in diameter. Mediastinum and matias: A vague 13 mm right lower paratracheal lymph node is unchanged from prior exam. Chest wall and lower neck: Prominent thyroid nodules are seen, left greater than right. These are similar overall in size to prior exam. Abdomen: For findings below the diaphragm, please refer to CT of the abdomen dated the same. Bones: Degenerative changes in the thoracic spine. Old compression fractures of T11 and L1 are unchanged. Old healed rib fractures are seen. IMPRESSION: 1. No evidence of acute fracture. Old compression fractures are unchanged. 2. Small bilateral pleural effusions with associated atelectasis. 3. Thyroid nodules are again seen. If not previously characterized, nonemergent ultrasound can be performed. ACT 112: Negative or not required by law. Electronically signed by: Kan Leon M.D. 06/21/2021 7:36 PM Chest X-Ray 06/21/21 17:41 XR chest 1V portable CLINICAL HISTORY: Atypical chest pain TECHNIQUE: Single frontal radiograph of the chest was obtained. Comparison: Comparison is made to rib series 06/03/2021 FINDINGS: No lines and tubes are seen. Calcified aortic knob is seen. The lungs are clear. No evidence of pleural effusion or pneumothorax. IMPRESSION: No acute chest disease. ACT 112: Negative or not required by law. Electronically signed by: Kan Leon M.D. 06/21/2021 6:[address] 06/21/21 17:41 CT head/brain wo con CLINICAL HISTORY: pain fall Technique: Contiguous axial CT images of the head were acquired from the base of the skull to the vertex without intravenous contrast administration. Images were viewed in brain, subdural and bone windows. Automated dose lowering techniques and/or adjustment according to patient size were utilized for this exam. Comparison: Comparison is made to CT head 10/13/2019 Findings: Areas of decreased attenuation are present in the periventricular and subcortical white matter bilaterally consistent with small vessel ischemic d isease. Generalized cerebral atrophy with commensurate enlargement of the ventricles, sulci, and cisterns is also present. There is no acute intracranial hemorrhage or evidence of acute territorial infarction. No shift of the midline structures, mass effect, or extra-axial abnormalities are shown. Atherosclerotic calcifications are present in the intracranial segments of the internal carotid arteries. Encephalomalacia in the left anterior supraventricular white matter is unchanged. Imaged portions of the paranasal sinuses and mastoid air cells are clear. The orbits appear normal. There are no acute fractures of the calvaria or scalp swelling. Impression: No acute intracranial hemorrhage, no evidence of acute territorial infarction or other acute intracranial disease process. ACT 112: Negative or not required by law. Electronically signed by: Kan Leon M.D. 06/21/2021 7:27 PM Supervising Physician Co-Signing Physician Notes During face to face encounter with patient at bedside, I performed a history and physical examination. Discussed plan of care with patient and Dr Pierson Reviewed above note and agree with it. Patient will be admitted for ambulatory dysfunction. WILL BENEFIT FROM PT/OT E Continue cefepime for wound infection, culture showed pseudomonas. Resident Activity Tracking Resident Involvement: Resident Care Provided Care Provided: Adult Hospital Medicine (1) UTI (urinary tract infection) Hematuria presence: without hematuria Urinary tract infection type: site unspecified Qualified Code(s): N39.0 - Urinary tract infection, site not specified (2) CAD (coronary artery disease) Associated angina: without angina Coronary Disease-Associated Artery/Lesion type: [place] artery Three Affiliated vs. transplanted heart: [place] heart Qualified Code(s): I25.10 - Atherosclerotic heart disease of [place] coronary artery without angina pectoris
[2021-06-21] MEDS ORDERED: CEFEPIME 2,000 MG/20 ML VIAL ONE (22:27)
[2021-06-21] MEDS ORDERED: SODIUM CHLORIDE 0.9% 1000ML 1,000 ML IV ONE (22:59)
[2021-06-22] MEDS ORDERED: POLYETHYLENE (MIRALAX) 17 GM PACK PO PRN (05:19)
[2021-06-22] MEDS ORDERED: SODIUM CHLORIDE 0.9% 1000ML 1,000 ML IV SCH (05:19)
[2021-06-22] MEDS ORDERED: ALUMINUM/MAGNESIUM SUSP 30 ML UDC PO PRN (05:19)
[2021-06-22] MEDS ORDERED: MAGNESIUM HYDROXIDE SUSP 30 ML UDC PO PRN (05:19)
[2021-06-22] MEDS ORDERED: ONDANSETRON INJ 2 MG/ML 2 ML VIAL IV PRN (05:19)
[2021-06-22] MEDS ORDERED: NITROGLYCERIN SL 0.4 MG/TAB TAB SL PRN (05:19)
[2021-06-22] MEDS ORDERED: MoRPHine SULFATE 2 MG/ML CARP IV PRN (05:19)
--- NOTE | 2021-06-22 06:15 | Communication Note ---
Date of Service: June 22, 2021 Messaged by pharmacy about renally dosing Xarelto and gabapentin. Will change to renal dosing. Also informed about Imdur "240mg qam and 120mg qpm" in the home meds list order comments exceeding daily maximum. Reviewed chart and prior cardiology notes. Dose should be 240mg qam only.
--- NOTE | 2021-06-22 08:04 | Hospitalist Progress Note ---
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 Generalized weakness Progressive LE weakness with recurrent falls over the past few months Likely multifactorial with suspected etiologies including poor PO intake, acute blood loss anemia, deconditioning, dehydration Infectious contribution unlikely given lack of leukocytosis, no fever, no urinary symptoms, CXR not suggestive of pneumonia, decubitus ulcer without infectious appearance Imaging negative for acute fracture, ICH, infarct Blood cultures pending PT/OT ordered CM consulted, anticipate DC to SNF or acute rehab upon medical stabilization Anemia Hgb on admission 8.0, currently stable at 7.9; patient has a remote history of blood transfusion (indication unclear) No signs of active bleeding FOBT ordered Type and screen complete, transfusion consent form signed Continue B12, folate Hold clopidogrel, rivaroxaban for now Repeat Hgb/Hct at midnight, CBC in AM JASMINA on CKD4 Creatinine on admission 2.5 (baseline ~1.7); appeared dry on initial exam Total 1500mL bolus given in ER 06/22: slight improvement of creatinine to 2.39; additional 500mL of LR (@80mL/hr) ordered given JASMINA and slightly soft pressures Trend BMP, avoid nephrotoxins, furosemide held Decubitus ulcer of coccyx region and LLE Actively managed by outpatient wound care; LLE culture (06/15/21) grew Pseudomonas; was started on levaquin (06/18/21) but unclear if this was started Cefepime given in ED; however, wound does not appear grossly infected Imaging without findings suggestive of osteomyelitis Wound care consulted, appreciate ongoing recommendations Atrial fibrillation Currently rate-controlled; continue metoprolol Home rivaroxaban held due to concern for acute blood loss anemia Continue to monitor CAD s/p stent placement Plavix held due to concern for acute blood loss anemia Continue atorvastatin, isosorbide mononitrate, ranolazine Asymptomatic bacteruria UA suggestive of UTI but patient without urinary symptoms No leukocytosis, fever, etc No treatment indicated Neuropathy Continue home gabapentin FEN: heart healthy diet, IVF as above Code status: DNR/DNI DVT ppx: rivaroxaban held due to concern for acute blood loss anemia Held home meds: rivaroxaban, furosemide, clopidogrel PT/OT: ordered Case management: following Dispo: inpatient status in ED (2) Lower extremity weakness: (3) Traumatic open wound of left lower leg with delayed healing: (4) Hypomagnesemia: (5) UTI (urinary tract infection): (6) Recurrent falls: (7) Pressure ulcer of coccygeal region, stage 3: (8) Atrial fibrillation, persistent: (9) CAD (coronary artery disease): (10) Acute kidney injury superimposed on CKD: Admission and Anticipated Discharge Date Admission Date: June 21, 2021 Supervising Physician Co-Signing Physician Notes Patient seen and examined with PGY-2 Dr. Salinas. Agree with history, exam findings, assessment and plan of care as outlined. In brief, Ms. Quezada is an 80 female with history of Afib, CAD s/p PCI, CKD, cholangiocarcinoma admitted with generalized weakness. Feeling a bit better this morning. No complaints. VS and nursing notes reviewed. Non-toxic appearing. Conjunctiva is pale. Heart with regular rate. Lungs are clear to auscultation. Abdomen is soft, non-tender. Leg wounds and coccyx wound covered with Optifoam which we did not remove as they were just placed. Labs and imaging reviewed. 1. Generalized weakness. Progressive, leading to falls. Probably multifactorial. PT/OT. 2. Anemia. Hgb 8.0. FOBT ordered. Check B12, folate. Holding Plavix and Xarelto for now until we can definitively rule out a bleed. 3. JASMINA on CKD. Pre-renal. S/p 1.5L on admission. Continue with IVFs. Monitor renal function. 4. Decubitus ulcer of coccyx and LLE. Manage by wound care as an outpatient. On Levaquin as an outpatient as wound culture grew out pseudomonas. Continue. 5. Asymptomatic bacteruria. Culture pending. Hold on additional antibiotics specific for urinary tract infection. 6. A fib. Rate controlled on metoprolol. Holding Xarelto for now. 7. CAD. Continue metoprolol, Imdur, Ranexa, atorvastatin. Holding Plavix. 8. Mild emphysema and pulmonary HTN resulting of chronic respiratory failure. Uses 2L O2 at baseline. Dispo: pending clinical improvement. Subjective Patient seen and evaluated at bedside this morning. Patient feels her fatigue and weakness have greatly improved since admission. No other concerns or complaints at this time. Patient denies CP, pain elsewhere, SOB worse than baseline, abdominal pain, nausea, vomiting, diarrhea, or other symptoms. Denies noticing blood in stool recently, or other obvious source of bleeding. Patient does note some increased bleeding of her right forearm due to difficulty with IV placement but says this is not painful at the moment. Review of Systems Review of Systems: See HPI Physical Exam Physical Exam: Constitutional: frail-appearing, cooperative, NAD HEENT: NCAT, conjunctival pallor appreciated CV: regular rate, no appreciable murmur, trace LE edema Resp: CTABL, no wheezes/rales/rhonchi appreciated, no increased work of breathing GI: soft, nondistended, nontender, BS normoactive Skin: right forearm with blood as noted in HPI, sacral ulcer wound with overlying optifoam dressing, no appreciable surrounding erythema, two optifoam dressings noted on LLE Neuro: alert, oriented, no focal neurologic deficit appreciated Results & Data Results & Data ([facility]) Vital Signs (Past 12 Hours) Vital Signs Pulse Resp BP Pulse Ox 06/22/21 04:00 58 L 14 125/62 98 06/22/21 03:30 59 L 14 121/58 L 98 06/22/21 03:00 58 L 18 113/53 L 99 06/22/21 02:30 58 L 18 102/53 L 98 06/22/21 02:00 62 18 113/52 L 98 06/22/21 01:30 63 18 113/54 L 99 06/22/21 01:00 62 20 105/54 L 97 06/22/21 00:30 61 19 100/50 L 98 06/22/21 00:00 59 L 18 116/57 L 100 06/21/21 23:00 61 16 95/47 L 100 06/21/21 22:44 62 18 80/44 L 100 06/21/21 22:36 62 16 80/41 L 99 06/21/21 22:00 61 14 111/52 L 98 06/21/21 21:30 59 L 14 121/57 L 100 06/21/21 21:00 58 L 16 106/53 L 100 Resident Activity Tracking Resident Involvement: Resident Care Provided Care Provided: Adult Hospital Medicine (1) UTI (urinary tract infection) Hematuria presence: without hematuria Urinary tract infection type: site unspecified Qualified Code(s): N39.0 - Urinary tract infection, site not specified (2) CAD (coronary artery disease) Associated angina: without angina Coronary Disease-Associated Artery/Lesion type: [place] artery [place] vs. transplanted heart: [place] heart Qualified Code(s): I25.10 - Atherosclerotic heart disease of [place] coronary artery without angina pectoris
[2021-06-22] MEDS ORDERED: FUROSEMIDE 40 MG TAB PO SCH (09:00)
--- NOTE | 2021-06-22 12:11 | Electrocardiogram Report ---
Test Reason : Blood Pressure : / mmHG Vent. Rate : 061 BPM Atrial Rate : 300 BPM P-R Int : 000 ms QRS Dur : 132 ms QT Int : 476 ms P-R-T Axes : 000 041 -26 degrees QTc Int : 479 ms Atrial flutter Right bundle branch block Abnormal ECG When compared with ECG of 18-MAR-2021 12:08, No change Confirmed by Dmitry Kelley ([id number]) on 06/22/2021 12:11:14 PM Referred By: REFERRED SELF Confirmed By:Diego Kelley
[2021-06-22] MEDS: METOPROLOL SUCC 50MG EXT REL TAB PO SCH ×2 (12:14→21:01)
[2021-06-22] MEDS: RANOLAZINE 500 MG ER TAB PO SCH ×2 (12:15→21:00)
[2021-06-22] MEDS: CLOPIDOGREL BISULFATE 75 MG TAB PO SCH (12:15)
[2021-06-22] MEDS: POTASSIUM CHLORIDE CRTAB 20 MEQ TABCR PO SCH (12:15)
[2021-06-22] MEDS: ISOSORBIDE MONO EXTENDED REL 60 MG TABCR PO SCH (12:16)
[2021-06-22 12:44] LABS: Hematocrit (blood only) 24.6 % (37-47); Hemoglobin 7.9 g/dL (12.0-16.0); Mean Corpuscular Hemoglobin 32.5 pg (25-34); Mean Corpuscular Hgb Conc 32.1 g/dL (32-36); Mean Corpuscular Volume 101.2 fL (80-100); Mean Platelet Volume 9.6 fL (7.4-10.4); Platelet Count 242 K/uL (130-400); RDW Standard Deviation 51.3 fL (36.4-46.3); Red Blood Count 2.43 M/uL (4.2-5.4); White Blood Count 7.71 K/uL (4.8-10.8)
[2021-06-22] MEDS ORDERED: COLLAGENASE OINT 30 GM TUBE EXT PRN (13:01)
[2021-06-22 13:07] LABS: Anion Gap 10 (3-11); Blood Urea Nitrogen 24 mg/dl (6-23); C Reactive Protein < 0.50 mg/dl (0-0.5); Calcium 7.6 mg/dl (8.5-10.1); Carbon Dioxide 20 mmol/L (21-32); Chloride 112 mmol/L (98-107); Creatinine Clr Calc Pharmacy 13.9 ml/min; Est GFR (African American) 21.3 ml/min; Est GFR (Non-African American) 18.4 ml/min; Glucose 75 mg/dl (70-99(Fasting)); Magnesium 2.1 mg/dl (1.7-2.4); Potassium 3.8 mmol/L (3.5-5.1); Sodium 142 mmol/L (136-145)
[2021-06-22 13:40] LABS: Folate (Folic Acid) 5.62 ng/ml (>5.38)
[2021-06-22] MEDS ORDERED: RIVAROXABAN 15 MG TAB PO SCH (16:30)
--- NOTE | 2021-06-22 20:25 | Billing Data ---
Date of Service June 21, 2021 Coding Level of Care Code 43471 Initial Inpt Care Lvl 3
[2021-06-22] MEDS ORDERED: LACTATED RINGER'S 500 ML IV SCH (20:30)
[2021-06-22] MEDS: GABAPENTIN 300 MG CAP PO SCH (21:00)
[2021-06-22] MEDS: ATORVASTATIN 40 MG TAB PO SCH (21:00)
[2021-06-23 01:05] LABS: Hematocrit (blood only) 23.8 % (37-47); Hemoglobin 7.6 g/dL (12.0-16.0)
--- NOTE | 2021-06-23 06:48 | Hospitalist Progress Note ---
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 Anemia, concern for transfusion reaction Hgb on admission 8.0, currently stable at 7.9; patient has a remote history of blood transfusion (indication unclear) No signs of active bleeding, FOBT ordered Hold clopidogrel, rivaroxaban 06/23: attempted transfusion of 1u pRBC but this was discontinued shortly after it was started due to concerns for transfusion reaction (see HPI) Attempted transfusion was A positive blood; patient's blood type is A negative, no anti-Rh antibodies detected on labs Transfusion reaction workup negative for hemolysis, but pathology recommends AGAINST continuing transfusion of the A positive unit of blood No blood products for now, no overnight labs If patient drops below 7.0 on morning CBC, blood bank will administer O negative blood Continue B12, folate CBC in AM Generalized weakness Progressive LE weakness with recurrent falls over the past few months Likely multifactorial with suspected etiologies including poor PO intake, acute blood loss anemia, deconditioning, dehydration Infectious contribution unlikely given lack of leukocytosis, no fever, no urinary symptoms, CXR not suggestive of pneumonia, decubitus ulcer without infectious appearance Imaging negative for acute fracture, ICH, infarct Blood cultures pending PT/OT ordered CM consulted, anticipate DC to SNF or acute rehab upon medical stabilization JASMINA on CKD4 Creatinine on admission 2.5 (baseline ~1.7); appeared dry on initial exam Total 1500mL bolus given in ER 06/22: slight improvement of creatinine to 2.39; additional 500mL of LR (@80mL/hr) ordered given JASMINA and slightly soft pressures Trend BMP, avoid nephrotoxins, furosemide held Decubitus ulcer of coccyx region and LLE Actively managed by outpatient wound care; LLE culture (06/15/21) grew Pseudomonas; was started on levaquin (06/18/21) but unclear if this was started Cefepime given in ED; however, wound does not appear grossly infected Imaging without findings suggestive of osteomyelitis Wound care consulted, appreciate ongoing recommendations Atrial fibrillation/flutter Currently in atrial flutter, rate-controlled; continue metoprolol Home rivaroxaban held due to concern for acute blood loss anemia Continue to monitor CAD s/p stent placement Plavix held due to concern for acute blood loss anemia Continue atorvastatin, isosorbide mononitrate, ranolazine Asymptomatic bacteruria UA suggestive of UTI but patient without urinary symptoms No leukocytosis, fever, etc No treatment indicated Neuropathy Continue home gabapentin FEN: heart healthy diet, IVF as above Code status: DNR/DNI DVT ppx: rivaroxaban held due to concern for acute blood loss anemia Held home meds: rivaroxaban, furosemide, clopidogrel PT/OT: ordered Case management: following Dispo: inpatient status in ED (2) Lower extremity weakness: (3) Traumatic open wound of left lower leg with delayed healing: (4) Hypomagnesemia: (5) UTI (urinary tract infection): (6) Recurrent falls: (7) Pressure ulcer of coccygeal region, stage 3: (8) Atrial fibrillation, persistent: (9) CAD (coronary artery disease): (10) Acute kidney injury superimposed on CKD: Admission and Anticipated Discharge Date Admission Date: June 21, 2021 Supervising Physician Co-Signing Physician Notes Patient seen and examined independently of PGY-2 Dr. Salinas. Agree with history, exam findings, assessment and plan of care as outlined. In brief, Ms. Quezada is an 80 female with history of Afib, CAD s/p PCI, CKD, cholangiocarcinoma admitted with generalized weakness. No complaints. Earlier this morning did have some chest pain during a blood transfusion. Blood that was being transfused was A positive; patient is A negative. EKG post-transfusion reaction with 4:1 atrial flutter. VS and nursing notes reviewed. Non-toxic appearing. Conjunctiva is pale. Heart with regular rate. Lungs are clear to auscultation. Abdomen is soft, non-tender. Leg wounds and coccyx wound covered with Optifoam which we did not remove as they were just placed. Labs and imaging reviewed. 1. Generalized weakness. Progressive, leading to falls. Probably multifactorial. PT/OT. 2. Anemia. Hgb 7.5. FOBT ordered. B12 and folate in normal ranges. Holding Plavix and Xarelto for now until we can definitively rule out a bleed. 3. Transfusion reaction. Resolved. Appreciate pathology/blood [place] assistance with sorting out the transfusion situation. 4. JASMINA on CKD. Appears somewhat pre-renal. Baseline Cr is ~1.5. S/p 1.5L on admission. Continue with IVFs. Chek renal ultrasound as she does have some underlying CKD. Urine microscopy from today only looking for microscopic hematuria, which is positive. Will check UA+microsopy in the AM. Renal ultrasound ordered. Monitor renal function. 5. Decubitus ulcer of coccyx and LLE. Manage by wound care as an outpatient. On Levaquin as an outpatient as wound culture grew out pseudomonas. Continue. 6. Asymptomatic bacteruria. Culture growing Lactobacillus species. Hold on additional antibiotics specific for urinary tract infection. 7. A fib. Rate controlled on metoprolol. Holding Xarelto for now. 8. CAD. Continue metoprolol, Imdur, Ranexa, atorvastatin. Holding Plavix. 9. Mild emphysema and pulmonary HTN resulting of chronic respiratory failure. Uses 2L O2 at baseline. Dispo: pending clinical improvement. Subjective Patient seen and evaluated at bedside this morning. Patient continues to report improvement in her fatigue and weakness. No other concerns or complaints initially this morning prior to initiation of blood transfusion. However, sh ortly after the transfusion began, patient reported chest discomfort and a general vague feeling of discomfort. I reassessed patient who denied any other symptoms. RN stopped the blood transfusion immediately when patient reported her symptoms, and patient's symptoms resolved within about a minute of termination of the blood transfusion. EKG was notable for atrial flutter (not new & rate-controlled) but was without ischemic change, and troponin was negative. RN noticed that the transfused blood was A+ when patient's blood type is A-. Patient did not have Rh antibodies detected, but she does have a remote history of blood transfusions, and so a transfusion reaction is a possibility. No other symptoms or concerns at this time. Review of Systems Review of Systems: See HPI Physical Exam Physical Exam: Constitutional: frail-appearing, cooperative, NAD HEENT: NCAT, conjunctival pallor appreciated CV: regular rate, no appreciable murmur, trace LE edema Resp: CTABL, no wheezes/rales/rhonchi appreciated, no increased work of breathing Skin: right forearm with blood as noted in HPI, sacral ulcer wound with overlying optifoam dressing, no appreciable surrounding erythema, two optifoam dressings noted on LLE Neuro: alert, oriented, no focal neurologic deficit appreciated Results & Data Results & Data ([facility]) Vital Signs (Past 12 Hours) Vital Signs Temp Pulse Resp BP Pulse Ox 06/22/21 23:43 36.4 C L 58 L 16 110/61 100 06/22/21 19:48 36.7 C 57 L 101/50 L 100 Resident Activity Tracking Resident Involvement: Resident Care Provided Care Provided: Adult Hospital Medicine (1) UTI (urinary tract infection) Hematuria presence: without hematuria Urinary tract infection type: site unspecified Qualified Code(s): N39.0 - Urinary tract infection, site not specified (2) CAD (coronary artery disease) Associated angina: without angina Coronary Disease-Associated Artery/Lesion type: [place] artery [place] vs. transplanted heart: [place] heart Qualified Code(s): I25.10 - Atherosclerotic heart disease of [place] coronary artery without angina pectoris
[2021-06-23 07:14] LABS: Basophils # (auto) 0.01 K/uL (0-0.2); Basophils % (auto) 0.2 %; Eosinophils # (auto) 0.02 K/uL (0-0.5); Eosinophils % (auto) 0.3 %; Hematocrit (blood only) 23.5 % (37-47); Hemoglobin 7.5 g/dL (12.0-16.0); Immature Granulocytes # (auto) 0.02 K/uL (0.00-0.02); Immature Granulocytes % (auto) 0.3 %; Lymphocytes # (auto) 0.88 K/uL (1.2-3.4); Lymphocytes % (auto) 13.3 %; Mean Corpuscular Hemoglobin 32.1 pg (25-34); Mean Corpuscular Hgb Conc 31.9 g/dL (32-36); Mean Corpuscular Volume 100.4 fL (80-100); Mean Platelet Volume 9.6 fL (7.4-10.4); Monocytes # (auto) 0.97 K/uL (0.11-0.59); Monocytes % (auto) 14.7 %; Neutrophils % (auto) 71.2 %; Platelet Count 212 K/uL (130-400); RDW Coefficient of Variation 14.2 % (11.5-14.5); RDW Standard Deviation 51.3 fL (36.4-46.3); Red Blood Count 2.34 M/uL (4.2-5.4)
[2021-06-23] MEDS ORDERED: SODIUM CHLORIDE 0.9% 250 ML IV PRN (07:14)
[2021-06-23 07:34] LABS: RBC Morphology Unremarkable
[2021-06-23 07:49] LABS: BUN Creatinine Ratio 10.2 (10-20); Calcium 7.2 mg/dl (8.5-10.1); Creatinine Clr Calc Pharmacy 14.2 ml/min; Est GFR (African American) 21.8 ml/min; Est GFR (Non-African American) 18.8 ml/min; Magnesium 1.8 mg/dl (1.7-2.4); Potassium 4.2 mmol/L (3.5-5.1)
[2021-06-23] MEDS: RANOLAZINE 500 MG ER TAB PO SCH ×2 (07:59→20:45)
[2021-06-23] MEDS: POTASSIUM CHLORIDE CRTAB 20 MEQ TABCR PO SCH (08:00)
[2021-06-23] MEDS: METOPROLOL SUCC 50MG EXT REL TAB PO SCH ×2 (08:00→20:48)
[2021-06-23] MEDS: ISOSORBIDE MONO EXTENDED REL 60 MG TABCR PO SCH (08:00)
[2021-06-23] MEDS ORDERED: LACTATED RINGER'S 1,000 ML IV ONE (09:40)
[2021-06-23 13:13] LABS: Hematocrit (blood only) 24.4 % (37-47); Hemoglobin 7.9 g/dL (12.0-16.0)
[2021-06-23 15:15] LABS: Blood Urine 3+ (Negative)
--- NOTE | 2021-06-23 15:46 | Electrocardiogram Report ---
Test Reason : Blood Pressure : / mmHG Vent. Rate : 056 BPM Atrial Rate : 224 BPM P-R Int : 000 ms QRS Dur : 144 ms QT Int : 462 ms P-R-T Axes : 125 048 -17 degrees QTc Int : 445 ms Atrial flutter with 4:1 A-V conduction Right bundle branch block Lateral infarct , age undetermined Abnormal ECG Confirmed by Dmitry Kelley ([id number]) on 06/23/2021 3:46:14 PM Referred By: REFERRED SELF Confirmed By:Diego Kelley
[2021-06-23] MEDS: LACTATED RINGER'S 1,000 ML IV SCH (20:43)
[2021-06-23] MEDS: GABAPENTIN 300 MG CAP PO SCH (20:44)
[2021-06-23] MEDS: ATORVASTATIN 40 MG TAB PO SCH (20:44)
[2021-06-23] MEDS: ACETAMINOPHEN 325 MG TAB PO PRN (23:05)
[2021-06-24 06:20] LABS: Basophils # (auto) 0.01 K/uL (0-0.2); Basophils % (auto) 0.1 %; Eosinophils # (auto) 0.06 K/uL (0-0.5); Eosinophils % (auto) 0.8 %; Hematocrit (blood only) 24.3 % (37-47); Hemoglobin 7.9 g/dL (12.0-16.0); Immature Granulocytes # (auto) 0.03 K/uL (0.00-0.02); Immature Granulocytes % (auto) 0.4 %; Lymphocytes # (auto) 1.17 K/uL (1.2-3.4); Lymphocytes % (auto) 16.4 %; Mean Corpuscular Hemoglobin 32.8 pg (25-34); Mean Corpuscular Hgb Conc 32.5 g/dL (32-36); Mean Corpuscular Volume 100.8 fL (80-100); Mean Platelet Volume 9.8 fL (7.4-10.4); Monocytes % (auto) 18.2 %; Neutrophils # (auto) 4.58 K/uL (1.4-6.5); Neutrophils % (auto) 64.1 %; Platelet Count 218 K/uL (130-400); RDW Coefficient of Variation 14.5 % (11.5-14.5); RDW Standard Deviation 52.9 fL (36.4-46.3); Red Blood Count 2.41 M/uL (4.2-5.4); White Blood Count 7.15 K/uL (4.8-10.8)
[2021-06-24 06:41] LABS: Anion Gap 8 (3-11); BUN Creatinine Ratio 11.7 (10-20); Blood Urea Nitrogen 25 mg/dl (6-23); Calcium 7.3 mg/dl (8.5-10.1); Carbon Dioxide 19 mmol/L (21-32); Chloride 112 mmol/L (98-107); Creatinine Clr Calc Pharmacy 15.6 ml/min; Est GFR (African American) 24.4 ml/min; Glucose 73 mg/dl (70-99(Fasting)); Sodium 139 mmol/L (136-145)
[2021-06-24 06:49] LABS: RBC Morphology Unremarkable
[2021-06-24 07:20] LABS: Alanine Aminotransferase < 3 U/L (7-52); Albumin Level 2.5 gm/dl (3.4-5.0); Alkaline Phosphatase 87 U/L (34-104); Aspartate Aminotransferase 22 U/L (13-39); Bilirubin,Total 0.6 mg/dl (0.2-1.0); Iron 22 mcg/dl (35-150); Total Protein 4.9 gm/dl (6.0-8.3)
[2021-06-24 07:41] LABS: Ferritin 352.1 ng/ml (8-388)
[2021-06-24 07:48] LABS: Globulin 2.4 gm/dl (2.5-4.0); Transferrin < 95 mg/dl (200-360)
[2021-06-24] MEDS ORDERED: FERROUS SULFATE 325 MG TAB PO SCH (08:00)
[2021-06-24] MEDS: ACETAMINOPHEN 325 MG TAB PO PRN (08:03)
[2021-06-24] MEDS: LACTATED RINGER'S 1,000 ML IV SCH ×2 (08:04→20:26)
--- NOTE | 2021-06-24 08:30 | Ultrasound Report ---
RENAL ULTRASOUND CLINICAL HISTORY: Acute kidney injury. COMPARISON STUDY: CT of the abdomen and pelvis June 21, 2021. TECHNIQUE: Sonography of the kidneys and the urinary bladder was performed. FINDINGS: Exam is compromised by suboptimal penetration. However, there is no hydronephrosis. The rig ht kidney measures 8.9 cm in maximal dimension and the left measures 8 cm. There is moderate bilatera l renal cortical thinning. There are possible small bilateral renal calculi. Both ureteral jets were identified. Bladder is unremarkable by sonography. Small bilateral pleural effusions are incidentally noted. IMPRESSION: 1. No hydronephrosis. 2. Moderate bilateral renal cortical thinning. ACT 112: Negative or not required by law. Electronically signed by: Hammad Aranda M.D. 06/24/2021 8:29 AM
[2021-06-24] MEDS: ISOSORBIDE MONO EXTENDED REL 60 MG TABCR PO SCH (08:37)
[2021-06-24] MEDS: POTASSIUM CHLORIDE CRTAB 20 MEQ TABCR PO SCH (08:40)
[2021-06-24] MEDS: METOPROLOL SUCC 50MG EXT REL TAB PO SCH (08:40)
[2021-06-24] MEDS: RANOLAZINE 500 MG ER TAB PO SCH ×2 (08:41→20:30)
--- NOTE | 2021-06-24 09:31 | Hospitalist Progress Note ---
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 Anemia of Chronic Disease: - Hgb on admission 8.0, currently stable at 7.9; patient has a remote history of blood transfusion (indication unclear) - No signs of active bleeding, FOBT ordered - Restart clopidogrel, rivaroxaban - 06/23: attempted transfusion of 1u pRBC but this was discontinued shortly after it was started due to concerns for transfusion reaction (see HPI) Attempted transfusion was A positive blood; patient's blood type is A negative, no anti-Rh antibodies detected on labs Transfusion reaction workup negative for hemolysis, but pathology recommends AGAINST continuing transfusion of the A positive unit of blood No blood products for now, no overnight labs If patient drops below 7.0 on morning CBC, blood bank will administer O negative blood - Fe 22, Transferrin 79, Ferritin 355 - Continue B12, folate - CBC in AM Generalized weakness: - Progressive LE weakness with recurrent falls over the past few months - Likely multifactorial with suspected etiologies including poor PO intake, acute blood loss anemia, deconditioning, dehydration - Infectious contribution unlikely given lack of leukocytosis, no fever, no urinary symptoms, CXR not suggestive of pneumonia, decubitus ulcer without infectious appearance - Imaging negative for acute fracture, ICH, infarct - PT/OT ordered - CM consulted, anticipate DC to SNF or acute rehab upon medical stabilization JASMINA on CKD4: - Creatinine on admission 2.5 (baseline ~1.7); appeared dry on initial exam - Total 1500mL bolus given in ER - 06/22: slight improvement of creatinine to 2.39; additional 500mL of LR (@80mL/hr) ordered given JASMINA and slightly soft pressures - Trend BMP, avoid nephrotoxins, furosemide held Decubitus ulcer of coccyx region and LLE: - Actively managed by outpatient wound care; LLE culture (06/15/21) grew Pseudomonas; was started on levaquin (06/18/21) - Cefepime given in ED; however, wound does not appear grossly infected - restarted Levaquin 750mg daily - Imaging without findings suggestive of osteomyelitis - Wound care consulted, appreciate ongoing recommendations Atrial fibrillation/flutter: - Currently in atrial flutter, rate-controlled; continue metoprolol - restart rivaroxaban - Continue to monitor CAD s/p stent placement: - restart plavix - Continue atorvastatin, isosorbide mononitrate, ranolazine Asymptomatic bacteruria: - UA suggestive of UTI but patient without urinary symptoms - No leukocytosis, fever, etc - No treatment indicated Neuropathy : - Continue home gabapentin FEN: heart healthy diet, IVF as above Code status: DNR/DNI DVT ppx: rivaroxaban 20mg daily Dispo: PCU; awaiting improvement in Cr and H/H stability before discharge (2) Lower extremity weakness: (3) Traumatic open wound of left lower leg with delayed healing: (4) Hypomagnesemia: (5) UTI (urinary tract infection): (6) Recurrent falls: (7) Pressure ulcer of coccygeal region, stage 3: (8) Atrial fibrillation, persistent: (9) CAD (coronary artery disease): (10) Acute kidney injury superimposed on CKD: Admission and Anticipated Discharge Date Admission Date: June 21, 2021 Supervising Physician Co-Signing Physician Notes Patient seen and examined with PGY-3 Dr. Espinoza. Agree with history, exam findings, assessment and plan of care as outlined. In brief, Ms. Quezada is an 80 female with history of Afib, CAD s/p PCI, CKD, cholangiocarcinoma admitted with generalized weakness. Has not urinated since early this morning. Bladder scanned for 700mL. Has no urge to urinate. No pressure sensation in the bladder area. Has been sitting in the chair for meals. No chest pain or dyspnea. VS and nursing notes reviewed. Non-toxic appearing. Heart with regular rate. No edema in the lower extremities. Lungs are clear to auscultation. Leg wounds and coccyx wound covered with Optifoam which we did not remove. Labs and imaging reviewed. 1. Generalized weakness. Progressive, leading to falls. Probably multifactorial. PT/OT. 2. Anemiaanemia of chronic disease. Hgb 7.9. B12 and folate in normal ranges; iron studies consistent with ACD. 3. Transfusion reaction. Resolved. Hold off on transfusing for now. 4. JASMINA on CKD. Appears somewhat pre-renal. Baseline Cr is ~1.5. S/p 1.5L on admission. Continue with IVFs. Renal ultrasound with bilateral cortical thinning. Awaiting new urine microscopy. She does follow with Dr. Meehan as an outpatient. Monitor renal function. 5. Urinary retention. Scanned for 700mL today. Straight cathed. Lower suspicion that this may represent a new urinary tract infection. 6. Decubitus ulcer of coccyx and LLE. Manage by wound care as an outpatient. On Levaquin as an outpatient as wound culture grew out pseudomonas. Continue. 7. A fib. Rate controlled on metoprolol. Resumed Xarelto. 8. CAD. Continue metoprolol, Imdur, Ranexa, atorvastatin. Holding Plavix. 9. Mild emphysema and pulmonary HTN resulting of chronic respiratory failure. Uses 2L O2 at baseline. Dispo: Likely able to discharge to [facility] in the next day or two if renal function is improving. Subjective Patient feeling well this morning; has not voided throughout the day. Bladder scanned for >675cc. Did not feel the urge to urinate despite this. Extensive discussions with patient and family regarding need for physical therapy to improve strength prior to being able to discharge home. Family is comfortable with this process, but patient has her concerns because of the extent of therapy that this would require. Family would like to see if she could do therapy closer to [facility] as this is closer to them. Review of Systems Review of Systems: All systems reviewed & are unremarkable except as noted in Subjective Physical Exam Constitutional: WD/WN, vitals as above Eyes: PERRL, conjunctivae normal, anicteric sclerae Respiratory: normal respiratory effort, lungs clear to auscultation Auscultation: no crackles, no rales, no rhonchi and no wheezes Cardiovascular: Rate/Rhythm: regular rate and regular rhythm Heart Sounds: no gallop, no murmur and no cardiac rub Vessels: normal peripheral pulses; no JVD Extremities: no edema Gastrointestinal (Abdomen): Inspection/Auscultation: normal bowel sounds; abdomen not distended Percussion/Palpation: abdomen soft; abdomen nontender and no guarding Neurologic: PERRL, EOMI, accommodation nl, no face palsy, no dysarthria CN's II-XI intact bilaterally and moves all extremities Psychiatric: Orientation: alert and oriented x 3 Results & Data Results & Data ([facility]) Vital Signs (Past 12 Hours) Vital Signs Temp Pulse Pulse Resp BP Pulse Ox 06/24/21 08:13 37 C 60 16 115/72 100 06/24/21 08:00 60 06/24/21 07:44 36.7 C 59 L 18 137/66 99 06/24/21 03:59 36.8 C 58 L 17 110/67 94 Laboratory Results 06/24/21 06/24/21 06/24/21 Range/Units 15:00 05:47 05:47 WBC 7.15 (4.8-10.8) K/uL RBC 2.41 L (4.2-5.4) M/uL Hgb 7.9 L (12.0-16.0) g/dL Hct 24.3 L (37-47) % MCV 100.8 H (80-100) fL MCH 32.8 (25-34) pg MCHC 32.5 (32-36) g/dL RDW Std Deviation 52.9 H (36.4-46.3) fL RDW Coeff of [place]gen[place] 14.5 (11.5-14.5) % Plt Count 218 (130-400) K/uL MPV 9.8 (7.4-10.4) fL Immature Gran % (Auto) 0.4 % Neut % (Auto) 64.1 % Lymph % (Auto) 16.4 % [place] % (Auto) 18.2 % Eos % (Auto) 0.8 % Baso % (Auto) 0.1 % Neut # (Auto) 4.58 (1.4-6.5) K/uL Lymph # (Auto) 1.17 L (1.2-3.4) K/uL [place] # (Auto) 1.30 H (0.11-0.59) K/uL Eos # (Auto) 0.06 (0-0.5) K/uL Baso # (Auto) 0.01 (0-0.2) K/uL Immature Gran # (Auto) 0.03 H (0.00-0.02) K/uL RBC Morphology Unremarkable Sodium 139 (136-145) mmol/L Potassium 4.0 (3.5-5.1) mmol/L Chloride 112 H (98-107) mmol/L Carbon Dioxide 19 L (21-32) mmol/L Anion Gap 8 (3-11) BUN 25 H (6-23) mg/dl Creatinine 2.14 H (0.6-1.2) mg/dl Est Cr Clr Drug Dosing 15.6 ml/min Est GFR ( Amer) 24.4 ml/min Est GFR (Non-Af Amer) 21.0 ml/min BUN/Creatinine Ratio 11.7 (10-20) Glucose 73 (70-99(Fasting)) mg/dl Calcium 7.3 L (8.5-10.1) mg/dl Iron 22 L (35-150) mcg/dl Transferrin < 95 L (200-360) mg/dl Ferritin 352.1 (8-388) ng/ml Total Bilirubin 0.6 (0.2-1.0) mg/dl AST 22 (13-39) U/L ALT < 3 L (7-52) U/L Alkaline Phosphatase 87 (34-104) U/L Total Protein 4.9 L (6.0-8.3) gm/dl Albumin 2.5 L (3.4-5.0) gm/dl Globulin 2.4 L (2.5-4.0) gm/dl Albumin/Globulin Ratio 1.0 (0.9-2) Urine Color Yellow Urine Appearance Clear (Clear) Urine pH 5.0 (4.5-7.5) Ur Specific [place] 1.015 (1.000-1.030) Urine Protein 1+ H (Negative) Urine Glucose (UA) Negative (Negative) Urine Ketones Negative (Negative) Urine Blood 2+ H (Negative) Urine Nitrite Negative (Negative) Urine Bilirubin Negative (Negative) Urine Urobilinogen Negative (Negative) Ur Leukocyte Esterase Trace H (Negative) Urine WBC (Auto) 1-5 (0-5) /hpf Urine RBC (Auto) 0-4 (0-4) /hpf U Hyaline Cast (Auto) 0 (0-5) /lpf U Epithel Cells (Auto) 5-10 H (0-5) /lpf Urine Bacteria (Auto) Negative (Negative) Stool Occult Bld Scrn (Negative) Transfusion React Date Transfusion React Time Tx React Symptoms Reaction Clerical Check Lab Clerical Err Check React Component Return Volume Returned Pre-Trans Blood Type Pre-Trans Vis Hemolysis Pre-Trans UMER (Negative) Pre-Trans UMER IgG (Negative) Pre-Trans UMER Poly (Negative) Pre-Trans UMER C3b, C3d (Negative) Post-Trans Blood Type Post-Tx Visible Hemolys Post-Trans UMER (Negative) Post-Trans UMER IgG (Negative) Post-Trans UMER Poly (Negative) Post-Trans UMER C3b, C3d (Negative) Post-Trans Ur Hemoglobin Reaction Path Interpret Transfusion Serv Com 06/23/21 06/23/21 06/23/21 Range/Units 18:35 14:29 10:38 WBC (4.8-10.8) K/uL RBC (4.2-5.4) M/uL Hgb (12.0-16.0) g/dL Hct (37-47) % MCV (80-100) fL MCH (25-34) pg MCHC (32-36) g/dL RDW Std Deviation (36.4-46.3) fL RDW Coeff of Argenis (11.5-14.5) % Plt Count (130-400) K/uL MPV (7.4-10.4) fL Immature Gran % (Auto) % Neut % (Auto) % Lymph % (Auto) % [place] % (Auto) % Eos % (Auto) % Baso % (Auto) % Neut # (Auto) (1.4-6.5) K/uL Lymph # (Auto) (1.2-3.4) K/uL [place] # (Auto) (0.11-0.59) K/uL Eos # (Auto) (0-0.5) K/uL Baso # (Auto) (0-0.2) K/uL Immature Gran # (Auto) (0.00-0.02) K/uL RBC Morphology Sodium (136-145) mmol/L Potassium (3.5-5.1) mmol/L Chloride (98-107) mmol/L Carbon Dioxide (21-32) mmol/L Anion Gap (3-11) BUN (6-23) mg/dl Creatinine (0.6-1.2) mg/dl Est Cr Clr Drug Dosing ml/min Est GFR ( Amer) ml/min Est GFR (Non-Af Amer) ml/min BUN/Creatinine Ratio (10-20) Glucose (70-99(Fasting)) mg/dl Calcium (8.5-10.1) mg/dl Iron (35-150) mcg/dl Transferrin (200-360) mg/dl Ferritin (8-388) ng/ml Total Bilirubin (0.2-1.0) mg/dl AST (13-39) U/L ALT (7-52) U/L Alkaline Phosphatase (34-104) U/L Total Protein (6.0-8.3) gm/dl Albumin (3.4-5.0) gm/dl Globulin (2.5-4.0) gm/dl Albumin/Globulin Ratio (0.9-2) Urine Color Urine Appearance (Clear) Urine pH (4.5-7.5) Ur Specific [place] (1.000-1.030) Urine Protein (Negative) Urine Glucose (UA) (Negative) Urine Ketones (Negative) Urine Blood (Negative) Urine Nitrite (Negative) Urine Bilirubin (Negative) Urine Urobilinogen (Negative) Ur Leukocyte Esterase (Negative) Urine WBC (Auto) (0-5) /hpf Urine RBC (Auto) (0-4) /hpf U Hyaline Cast (Auto) (0-5) /lpf U Epithel Cells (Auto) (0-5) /lpf Urine Bacteria (Auto) (Negative) Stool Occult Bld Scrn Negative Negative (Negative) Transfusion React Date 06/23/21 Transfusion React Time 0920 Tx React Symptoms Reaction Clerical Check None Found Lab Clerical Err Check None Found React Component Return PACKED CELLS Volume Returned 238ML Pre-Trans Blood Type A NEGATIVE Pre-Trans Vis Hemolysis No Pre-Trans UMER Negative (Negative) Pre-Trans UMER IgG Neg (Negative) Pre-Trans UMER Poly Neg (Negative) Pre-Trans UMER C3b, C3d Neg (Negative) Post-Trans Blood Type A NEGATIVE Post-Tx Visible Hemolys No Post-Trans UMER Negative (Negative) Post-Trans UMER IgG Neg (Negative) Post-Trans UMER Poly Neg (Negative) Post-Trans UMER C3b, C3d Neg (Negative) Post-Trans Ur Hemoglobin Reaction Path Interpret Transfusion Serv Com Medications Administered Current Inpatient Medications Acetaminophen (Acetaminophen 325 Mg Tab) 650 mg PO Q4H PRN PRN Reason: Pain or Fever Stop: 07/22/21 05:18 Last Admin: 06/24/21 08:03 Dose: 650 mg Documented by: Al Hydrox/Mg Hydrox/Simethicone (Aluminum/Magnesium Susp 30 Ml Udc) 15 ml PO Q4H PRN PRN Reason: Dyspepsia Stop: 07/22/21 05:18 Atorvastatin Calcium (Atorvastatin 40 Mg Tab) 40 mg PO [facility] Stop: 07/22/21 20:59 Last Admin: 06/23/21 20:44 Dose: 40 mg Documented by: Clopidogrel Bisulfate (Clopidogrel Bisulfate 75 Mg Tab) 75 mg PO [facility] Stop: 07/22/21 08:59 Last Admin: 06/22/21 12:15 Dose: Not Given Documented by: Collagenase (Collagenase Oint 30 Gm Tube) 1 appln EXT DAILY PRN PRN Reason: wound dressing Stop: 07/22/21 13:00 Last Admin: 06/23/21 17:13 Dose: 1 appln Documented by: Gabapentin (Gabapentin 300 Mg Cap) 300 mg PO [facility] Stop: 07/22/21 20:59 Last Admin: 06/23/21 20:44 Dose: 300 mg Documented by: Lactated Ringer's (Lr) 1,000 mls @ 80 mls/hr IV .[id number] [facility] Stop: 07/23/21 18:44 Last Admin: 06/24/21 08:04 Dose: 80 mls/hr Documented by: Isosorbide Mononitrate (Isosorbide [place] Extended Rel 60 Mg Tabcr) 240 mg PO [facility] Stop: 07/22/21 08:59 Last Admin: 06/24/21 08:37 Dose: 240 mg Documented by: Levofloxacin (Levofloxacin 500 Mg Tab) 500 mg PO Q2D@1100 [facility]; Protocol Stop: 07/01/21 10:59 Magnesium Hydroxide (Magnesium Hydroxide Susp 30 Ml Udc) 30 ml PO Q12H PRN PRN Reason: Constipation Stop: 07/22/21 05:18 Metoprolol Succinate (Metoprolol Succ 50mg Ext Rel Tab) 200 mg PO [facility] Stop: 07/22/21 08:59 Last Admin: 06/24/21 08:40 Dose: 200 mg Documented by: Morphine Sulfate (Morphine Sulfate 2 Mg/Ml Carp) 2 mg IV Q30M PRN PRN Reason: Chest Pain Stop: 07/06/21 05:18 Nitroglycerin (Nitroglycerin Sl 0.4 Mg/Tab Tab) 0.4 mg SL Q5M PRN PRN Reason: Chest Pain Stop: 07/22/21 05:18 Ondansetron HCl (Ondansetron Inj 2 Mg/Ml 2 Ml Vial) 4 mg IV Q6H PRN PRN Reason: Nausea Stop: 07/22/21 05:18 Polyethylene Glycol (Polyethylene (Miralax) 17 Gm Pack) 17 gm PO DAILY PRN PRN Reason: Constipation Stop: 07/22/21 05:18 Potassium Chloride (Potassium Chloride Crtab 20 Meq Tabcr) 20 meq PO QAM [facility] Stop: 07/22/21 08:59 Last Admin: 06/24/21 08:40 Dose: 20 meq Documented by: Ranolazine (Ranolazine 500 Mg Er Tab) 500 mg PO BID [facility] Stop: 07/22/21 08:59 Last Admin: 06/24/21 08:41 Dose: 500 mg Documented by: Sumatriptan Succinate (Sumatriptan Succinate 100 Mg Tab) 100 mg PO DAILY PRN PRN Reason: Migraine Headache Stop: 07/24/21 12:10 Resident Activity Tracking Resident Involvement: Resident Care Provided Care Provided: Adult Hospital Medicine (1) UTI (urinary tract infection) Hematuria presence: without hematuria Urinary tract infection type: site unspecified Qualified Code(s): N39.0 - Urinary tract infection, site not specified (2) CAD (coronary artery disease) Associated angina: without angina Coronary Disease-Associated Artery/Lesion type: [place] artery [place] vs. transplanted heart: [place] heart Qualified Code(s): I25.10 - Atherosclerotic heart disease of [place] coronary artery without angina pectoris
[2021-06-24] MEDS ORDERED: SUMAtriptan succinate 100 MG TAB PO PRN (12:11)
[2021-06-24] MEDS ORDERED: levoFLOXacin 750 MG TAB PO ONE (13:40)
[2021-06-24 15:34] LABS: Appearance Urine Clear (Clear); Bacteria Urine Automated Negative (Negative); Bilirubin Urine Negative (Negative); Blood Urine 2+ (Negative); Cast Urine Automated 0 /lpf (0-5); Color Urine Yellow; Glucose Urine UA Negative (Negative); Ketones Urine Negative (Negative); Leukocyte Esterase Urine Trace (Negative); Nitrite Urine Negative (Negative); Protein Urine 1+ (Negative); RBC Urine Automated 0-4 /hpf (0-4); Specific Gravity Urine 1.015 (1.000-1.030); Urobilinogen Urine Negative (Negative)
[2021-06-24] MEDS: GABAPENTIN 300 MG CAP PO SCH (20:56)
[2021-06-24] MEDS: ATORVASTATIN 40 MG TAB PO SCH (20:56)
[2021-06-24] MEDS ORDERED: RIVAROXABAN 20 MG TAB PO SCH (21:00)
[2021-06-25] MEDS: ACETAMINOPHEN 325 MG TAB PO PRN (04:46)
[2021-06-25 07:20] LABS: Basophils # (auto) 0.01 K/uL (0-0.2); Basophils % (auto) 0.1 %; Eosinophils % (auto) 1.3 %; Hematocrit (blood only) 23.1 % (37-47); Hemoglobin 7.4 g/dL (12.0-16.0); Immature Granulocytes # (auto) 0.03 K/uL (0.00-0.02); Immature Granulocytes % (auto) 0.4 %; Lymphocytes # (auto) 0.97 K/uL (1.2-3.4); Lymphocytes % (auto) 13.1 %; Mean Platelet Volume 9.6 fL (7.4-10.4); Monocytes # (auto) 1.19 K/uL (0.11-0.59); Monocytes % (auto) 16.1 %; Neutrophils # (auto) 5.11 K/uL (1.4-6.5); Platelet Count 196 K/uL (130-400); RDW Coefficient of Variation 14.2 % (11.5-14.5); RDW Standard Deviation 51.4 fL (36.4-46.3); Red Blood Count 2.31 M/uL (4.2-5.4); White Blood Count 7.41 K/uL (4.8-10.8)
[2021-06-25] MEDS ORDERED: IRON SUCROSE 400 MG in SODIUM CHLORIDE 0.9% 250 ML IV ONE (07:34)
--- NOTE | 2021-06-25 07:36 | Hospitalist Progress Note ---
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 Anemia of Chronic Disease: - Hgb on admission 8.0, currently stable at 7.9; patient has a remote history of blood transfusion (indication unclear). - No signs of active bleeding, FOBT negative. - Restarted clopidogrel, rivaroxaban. - 06/23: attempted transfusion of 1u PRBC but this was discontinued shortly after it was started due to concerns for transfusion reaction. - Attempted transfusion was A positive blood; patient's blood type is A negative, no anti-Rh antibodies detected on labs - Transfusion reaction workup negative for hemolysis, but pathology recommends AGAINST continuing transfusion of the A positive unit of blood. - Fe 22, Transferrin 79, Ferritin 355; consistent with anemia of chronic disease. - Repeat CBC tomorrow; transfuse if Hgb <7. - Continue B12, folate. Generalized weakness: - Progressive LE weakness with recurrent falls over the past few months. - Likely multifactorial with suspected etiologies including poor PO intake, acute blood loss anemia, deconditioning, dehydration. - Infectious contribution unlikely given lack of leukocytosis, no fever, no urinary symptoms, CXR not suggestive of pneumonia, decubitus ulcer without infectious appearance. - Imaging negative for acute fracture, hemorrhage, CVA. - PT/OT ordered. Recommended acute rehab for continued therapy. - Patient has been reticent to go to rehab facility. Spoke to patient's son today, who is concerned about her ability to be safe at home as she lives alone and has not allowed therapy into the home in the past. He will discuss rehab with her and let her know that he and his siblings do not feel comfortable with caring for her at this time. JASMINA on CKD IV: - Creatinine on admission 2.5 (baseline ~1.7); improved to 1.96 today after IV fluids. - Trend BMP, avoid nephrotoxins, furosemide held. Decubitus ulcer of coccyx region and LLE: - Actively managed by outpatient wound care; LLE culture (06/15/21) grew Pseudomonas; was started on Levaquin (06/18/21). - Imaging without findings suggestive of osteomyelitis. - Wound care consulted, appreciate ongoing recommendations. - No infectious signs, will discontinue antibiotics. Atrial fibrillation/flutter: - Continue metoprolol. - Restart rivaroxaban. CAD s/p stent placement: - Continue Plavix. - Continue atorvastatin, isosorbide mononitrate, ranolazine. Asymptomatic bacteruria: - UA with bacteria however patient without urinary symptoms. - No treatment indicated. Neuropathy: - Continue home gabapentin. Code status: DNR/DNI FEN: heart healthy diet, IVF as above DVT ppx: rivaroxaban 20mg daily Dispo: Med/Surg with Telemetry (2) Lower extremity weakness: (3) Traumatic open wound of left lower leg with delayed healing: (4) Hypomagnesemia: (5) UTI (urinary tract infection): (6) Recurrent falls: (7) Pressure ulcer of coccygeal region, stage 3: (8) Atrial fibrillation, persistent: (9) CAD (coronary artery disease): (10) Acute kidney injury superimposed on CKD: Admission and Anticipated Discharge Date Admission Date: June 21, 2021 Supervising Physician Co-Signing Physician Notes Attending attestation Pt seen and examined in concert with Dr. Rosas. In agreement with the documented findings as noted in the resident documentation with any exceptions or additions as noted here. 80 female with history of Afib, CAD s/p PCI, CKD, cholangiocarcinoma admitted with generalized weakness. No acute complaints at this time. On examination, S1/S2 nl RRR no MCG. CTAB. Abd NT/ND BS+ve. Leg wounds dressed, C/D/I. VS, nursing notes, labs and imaging reviewed. Generalized weakness/deconditioning - PT/OT. Encourage engagement 40 minutes face to face spent with this patient in reviewed of the need for supervised, assisted environments for her safety and clinical improvement in the setting of her recent hospitalization and the need for her to safely transition back to home. Encourage d/w family which she refuses for me to do at this time. JASMINA on CKDIII - improving and within historical range though not at lowest baseline. Continue hydration and monitoring. Anemia of chronic disease - decreased hgb, likely hemodilutional and without symptoms. Consider transfusion with continued decrease be w/ cardiac hx Urinary retention - bladder scan normal today, no urinary symptoms. Surveillance. AF, rate controlled - continue xarelto Dispo: Pending conversation with family re: placement and coordination with case management, insurance Else see resident documentation as noted. Subjective Patient without acute events overnight. No issues with urinary retention overnight. Really wants to go home and have home health services visit. In speaking with her son, she has evidently agreed to home health services in the past but then will turn them away at the door. He and his siblings are concerned that she is approaching inability to care for all of her needs independently and want her to go to a facility for strengthening. She denies chest pain, SOB, urinary symptoms, GI symptoms. Review of Systems Review of Systems: All systems reviewed & are unremarkable except as noted in Subjective Physical Exam Constitutional: WD/WN, vitals as above Respiratory: normal respiratory effort, lungs clear to auscultation Cardiovascular: RRR, no murmur, no edema Gastrointestinal (Abdomen): normal bowel sounds, soft, nontender, no hepatosplenomegaly Skin: no rashes, warm and dry Psychiatric: A+Ox3, euthymic affect Results & Data Results & Data ([facility]) Vital Signs (Past 12 Hours) Vital Signs Temp Pulse Pulse Resp BP Pulse Ox 06/25/21 03:22 37.4 C 63 17 108/66 96 06/24/21 22:54 36.8 C 77 16 114/62 97 06/24/21 22:20 58 L Resident Activity Tracking Resident Involvement: Resident Care Provided Care Provided: Adult Hospital Medicine (1) UTI (urinary tract infection) Hematuria presence: without hematuria Urinary tract infection type: site unspecified Qualified Code(s): N39.0 - Urinary tract infection, site not specified (2) CAD (coronary artery disease) Associated angina: without angina Coronary Disease-Associated Artery/Lesion type: [place] artery [place] vs. transplanted heart: [place] heart Qualified Code(s): I25.10 - Atherosclerotic heart disease of [place] coronary artery without angina pectoris
[2021-06-25 07:42] LABS: BUN Creatinine Ratio 12.2 (10-20); Calcium 7.4 mg/dl (8.5-10.1); Est GFR (African American) 27.1 ml/min; Est GFR (Non-African American) 23.4 ml/min; Potassium 4.7 mmol/L (3.5-5.1)
[2021-06-25 08:00] LABS: RBC Morphology Unremarkable
[2021-06-25] MEDS: METOPROLOL SUCC 50MG EXT REL TAB PO SCH (08:17)
[2021-06-25] MEDS: ISOSORBIDE MONO EXTENDED REL 60 MG TABCR PO SCH (08:18)
[2021-06-25] MEDS: RANOLAZINE 500 MG ER TAB PO SCH ×2 (08:18→19:59)
[2021-06-25] MEDS: POTASSIUM CHLORIDE CRTAB 20 MEQ TABCR PO SCH (08:45)
[2021-06-25] MEDS: CLOPIDOGREL BISULFATE 75 MG TAB PO SCH (08:46)
[2021-06-25] MEDS: ATORVASTATIN 40 MG TAB PO SCH (19:58)
[2021-06-25] MEDS: GABAPENTIN 300 MG CAP PO SCH (19:59)
[2021-06-25] MEDS: RIVAROXABAN 15 MG TAB PO SCH (20:00)
[2021-06-26 06:27] LABS: Basophils # (auto) 0.01 K/uL (0-0.2); Basophils % (auto) 0.1 %; Eosinophils # (auto) 0.09 K/uL (0-0.5); Eosinophils % (auto) 1.2 %; Hematocrit (blood only) 24.4 % (37-47); Hemoglobin 7.9 g/dL (12.0-16.0); Immature Granulocytes # (auto) 0.03 K/uL (0.00-0.02); Immature Granulocytes % (auto) 0.4 %; Lymphocytes # (auto) 0.95 K/uL (1.2-3.4); Lymphocytes % (auto) 12.3 %; Mean Corpuscular Hemoglobin 32.4 pg (25-34); Mean Corpuscular Hgb Conc 32.4 g/dL (32-36); Mean Platelet Volume 9.8 fL (7.4-10.4); Monocytes # (auto) 1.23 K/uL (0.11-0.59); Monocytes % (auto) 15.9 %; Neutrophils # (auto) 5.44 K/uL (1.4-6.5); Neutrophils % (auto) 70.1 %; Platelet Count 194 K/uL (130-400); RDW Coefficient of Variation 13.9 % (11.5-14.5); RDW Standard Deviation 50.8 fL (36.4-46.3); Red Blood Count 2.44 M/uL (4.2-5.4); White Blood Count 7.75 K/uL (4.8-10.8)
[2021-06-26 06:59] LABS: BUN Creatinine Ratio 13.2 (10-20); Calcium 7.5 mg/dl (8.5-10.1); Creatinine Clr Calc Pharmacy 17.6 ml/min; Est GFR (African American) 28.3 ml/min; Est GFR (Non-African American) 24.5 ml/min; Potassium 4.5 mmol/L (3.5-5.1)
[2021-06-26 07:08] LABS: RBC Morphology Unremarkable
--- NOTE | 2021-06-26 07:38 | Hospitalist Progress Note ---
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 Anemia of Chronic Disease: - Hgb on admission 8.0, currently stable at 7.9; patient has a remote history of blood transfusion (indication unclear). - No signs of active bleeding, FOBT negative. - Restarted clopidogrel, rivaroxaban. - 06/23: attempted transfusion of 1u PRBC but this was discontinued shortly after it was started due to concerns for transfusion reaction. - Attempted transfusion was A positive blood; patient's blood type is A negative, no anti-Rh antibodies detected on labs - Transfusion reaction workup negative for hemolysis, but pathology recommends AGAINST continuing transfusion of the A positive unit of blood. - Fe 22, Transferrin 79, Ferritin 355; consistent with anemia of chronic disease. - Repeat CBC tomorrow; transfuse if Hgb <7. -HGB: 7.9 06/26 - Continue B12, folate. Generalized weakness: Progressive LE weakness with recurrent falls over the past few months.Likely multifactorial with suspected etiologies including poor PO intake, acute blood loss anemia, deconditioning, dehydration. Infectious contribution unlikely given lack of leukocytosis, no fever, no urinary symptoms, CXR not suggestive of pneumonia, decubitus ulcer without infectious appearance. - Imaging negative for acute fracture, hemorrhage, CVA. - PT/OT ordered. Recommended acute rehab for continued therapy. - Patient was accepted at [facility] however is refusing to attend a SNF requesting she is discharged home with home health. Plan tender bleeding is for discharge tomorrow. Case management is assisting arranging for home health JASMINA on CKD IV: - Creatinine on admission 2.5 (baseline ~1.7); improved to 1.96 today after IV fluids. - Trend BMP, avoid nephrotoxins, furosemide held. -1.89 on 06/26 Decubitus ulcer of coccyx region and LLE: - Actively managed by outpatient wound care; LLE culture (06/15/21) grew Pseudomonas; was started on Levaquin (06/18/21). - Imaging without findings suggestive of osteomyelitis. - Wound care consulted, appreciate ongoing recommendations. - No infectious signs, will discontinue antibiotics. Atrial fibrillation/flutter: - Continue metoprolol. - Restart rivaroxaban. CAD s/p stent placement: - Continue Plavix. - Continue atorvastatin, isosorbide mononitrate, ranolazine. Asymptomatic bacteruria: - UA with bacteria however patient without urinary symptoms. - No treatment indicated. Neuropathy: - Continue home gabapentin. Code status: DNR/DNI FEN: heart healthy diet, IVF as above DVT ppx: rivaroxaban 20mg daily Dispo: downgrade to med/surg (2) Lower extremity weakness: (3) Traumatic open wound of left lower leg with delayed healing: (4) Hypomagnesemia: (5) UTI (urinary tract infection): (6) Recurrent falls: (7) Pressure ulcer of coccygeal region, stage 3: (8) Atrial fibrillation, persistent: (9) CAD (coronary artery disease): (10) Acute kidney injury superimposed on CKD: Admission and Anticipated Discharge Date Admission Date: June 21, 2021 Supervising Physician Co-Signing Physician Notes Attending attestation Pt seen and examined in concert with Dr. Torre. In agreement with the documented findings as noted in the resident documentation with any exceptions or additions as noted here. 80 female with history of Afib, CAD s/p PCI, CKD, cholangiocarcinoma admitted with generalized weakness. No acute complaints at present, urinating without complaint though with persistent PVR of ~200 per nursing. Son at bedside. On examination, S1/S2 nl RRR no MCG. CTAB. Abd NT/ND BS+ve. Leg wounds dressed, C/D/I. VS, nursing notes, labs and imaging reviewed. Generalized weakness/deconditioning - PT/OT. Again, an additional 35 minutes face to face spent with this patient and her son reviewing the medical concerns of her diffuse weakness for rehabilitation and home care. They are in support of her wishes and would be willing to provide 24 hour care for the near future while she receives home PT, but after discussion w/ case management she may also consider [facility] now. Encourage support in either decision but strongly prefer [facility] care. Sacral decubitous ulcer - continue levofloxacin to complete course, wound care oversight Urinary retention - bladder scan normal today, no urinary symptoms. Surveillance. JASMINA on CKDIII - improving and within historical range though not at lowest baseline. Continue hydration and monitoring. Anemia of chronic disease - decreased hgb, likely hemodilutional and without symptoms. Consider transfusion with continued decrease be w/ cardiac hx AF, rate controlled - continue xarelto Dispo: Pending conversation with family re: placement and coordination with case management, insurance Else see resident documentation as noted. Subjective Patient lying in bed this morning in no acute distress ports no acute events overnight is tolerating her diet voiding and stooling. Patient is requesting to be discharged home. We had a lengthy discussion where she repeatedly stated she did not want to go to SNF despite significant health concerns related to her returning home. Will be following up with her children. Acute concerns related to disposition Physical Exam Physical Exam: General: Weak, frail, elderly female in no acute distress Neck: No significant lymphadenopathy, trachea midline, normal to visual inspection Cardiac: Regular rate and rhythm, normal S1, normal S2, I did not appreciated any significant murmurs rubs or gallops, No calf tenderness, capillary refill is less than 3 seconds Respiratory: Clear to auscultation bilaterally with symmetrical chest rise, I did not appreciate any significant wheezes, rales, rhonchi, no increased work of breathing GI: Normal bowel sounds, soft, nontender in all 4 quadrants, nondistended Neuro: Alert and oriented x4 Psych: Calm, cooperative, logical thought process Results & Data Results & Data ([facility]) Vital Signs (Past 12 Hours) Vital Signs Temp Pulse Pulse Resp BP Pulse Ox 06/26/21 03:40 37.0 C 71 18 128/65 98 06/25/21 23:22 36.8 C 80 17 108/60 98 06/25/21 23:10 76 06/25/21 20:26 37.1 C 80 19 138/78 98 Laboratory Results 06/26/21 06/26/21 Range/Units 06:02 06:02 WBC 7.75 (4.8-10.8) K/uL RBC 2.44 L (4.2-5.4) M/uL Hgb 7.9 L (12.0-16.0) g/dL Hct 24.4 L (37-47) % MCV 100.0 (80-100) fL MCH 32.4 (25-34) pg MCHC 32.4 (32-36) g/dL RDW Std Deviation 50.8 H (36.4-46.3) fL RDW Coeff of Argenis 13.9 (11.5-14.5) % Plt Count 194 (130-400) K/uL MPV 9.8 (7.4-10.4) fL Immature Gran % (Auto) 0.4 % Neut % (Auto) 70.1 % Lymph % (Auto) 12.3 % Graham % (Auto) 15.9 % Eos % (Auto) 1.2 % Baso % (Auto) 0.1 % Neut # (Auto) 5.44 (1.4-6.5) K/uL Lymph # (Auto) 0.95 L (1.2-3.4) K/uL Graham # (Auto) 1.23 H (0.11-0.59) K/uL Eos # (Auto) 0.09 (0-0.5) K/uL Baso # (Auto) 0.01 (0-0.2) K/uL Immature Gran # (Auto) 0.03 H (0.00-0.02) K/uL RBC Morphology Unremarkable Sodium 136 (136-145) mmol/L Potassium 4.5 (3.5-5.1) mmol/L Chloride 111 H (98-107) mmol/L Carbon Dioxide 20 L (21-32) mmol/L Anion Gap 5 (3-11) BUN 25 H (6-23) mg/dl Creatinine 1.89 H (0.6-1.2) mg/dl Est Cr Clr Drug Dosing 17.6 ml/min Est GFR ( Amer) 28.3 ml/min Est GFR (Non-Af Amer) 24.5 ml/min BUN/Creatinine Ratio 13.2 (10-20) Glucose 61 L (70-99(Fasting)) mg/dl Calcium 7.5 L (8.5-10.1) mg/dl Medications Administered Current Inpatient Medications Acetaminophen (Acetaminophen 325 Mg Tab) 650 mg PO Q4H PRN PRN Reason: Pain or Fever Stop: 07/22/21 05:18 Last Admin: 06/26/21 11:23 Dose: 650 mg Documented by: Al Hydrox/Mg Hydrox/Simethicone (Aluminum/Magnesium Susp 30 Ml Udc) 15 ml PO Q4H PRN PRN Reason: Dyspepsia Stop: 07/22/21 05:18 Atorvastatin Calcium (Atorvastatin 40 Mg Tab) 40 mg PO [facility] Stop: 07/22/21 20:59 Last Admin: 06/25/21 19:58 Dose: 40 mg Documented by: Clopidogrel Bisulfate (Clopidogrel Bisulfate 75 Mg Tab) [address] [facility] Stop: 07/22/21 08:59 Last Admin: 06/26/21 07:57 Dose: 75 mg Documented by: Collagenase (Collagenase Oint 30 Gm Tube) 1 appln EXT DAILY PRN PRN Reason: wound dressing Stop: 07/22/21 13:00 Last Admin: 06/23/21 17:13 Dose: 1 appln Documented by: Gabapentin (Gabapentin 300 Mg Cap) 300 mg PO [facility] Stop: 07/22/21 20:59 Last Admin: 06/25/21 19:59 Dose: 300 mg Documented by: Isosorbide Mononitrate (Isosorbide Graham Extended Rel 60 Mg Tabcr) [address] [facility] Stop: 07/22/21 08:59 Last Admin: 06/26/21 07:58 Dose: 240 mg Documented by: Levofloxacin (Levofloxacin 500 Mg Tab) 500 mg PO Q2D@1100 [facility]; Protocol Stop: 07/01/21 10:59 Last Admin: 06/26/21 11:22 Dose: 500 mg Documented by: Magnesium Hydroxide (Magnesium Hydroxide Susp 30 Ml Udc) 30 ml PO Q12H PRN PRN Reason: Constipation Stop: 07/22/21 05:18 Metoprolol Succinate (Metoprolol Succ 50mg Ext Rel Tab) [address] [facility] Stop: 07/22/21 08:59 Last Admin: 06/26/21 07:58 Dose: 200 mg Documented by: Morphine Sulfate (Morphine Sulfate 2 Mg/Ml Carp) 2 mg IV Q30M PRN PRN Reason: Chest Pain Stop: 07/06/21 05:18 Nitroglycerin (Nitroglycerin Sl 0.4 Mg/Tab Tab) 0.4 mg SL Q5M PRN PRN Reason: Chest Pain Stop: 07/22/21 05:18 Ondansetron HCl (Ondansetron Inj 2 Mg/Ml 2 Ml Vial) 4 mg IV Q6H PRN PRN Reason: Nausea Stop: 07/22/21 05:18 Polyethylene Glycol (Polyethylene (Miralax) 17 Gm Pack) 17 gm PO DAILY PRN PRN Reason: Constipation Stop: 07/22/21 05:18 Potassium Chloride (Potassium Chloride Crtab 20 Meq Tabcr) 20 meq PO QAM [facility] Stop: 07/22/21 08:59 Last Admin: 06/26/21 08:04 Dose: 20 meq Documented by: Ranolazine (Ranolazine 500 Mg Er Tab) 500 mg PO BID [facility] Stop: 07/22/21 08:59 Last Admin: 06/26/21 07:59 Dose: 500 mg Documented by: Rivaroxaban (Rivaroxaban 15 Mg Tab) 15 mg PO QPM [facility] Stop: 07/25/21 20:59 Last Admin: 06/25/21 20:00 Dose: 15 mg Documented by: Sumatriptan Succinate (Sumatriptan Succinate 100 Mg Tab) 100 mg PO DAILY PRN PRN Reason: Migraine Headache Stop: 07/24/21 12:10 (1) UTI (urinary tract infection) Hematuria presence: without hematuria Urinary tract infection type: site unspecified Qualified Code(s): N39.0 - Urinary tract infection, site not specified (2) CAD (coronary artery disease) Associated angina: without angina Coronary Disease-Associated Artery/Lesion type: [place] artery [place] vs. transplanted heart: [place] heart Qualified Code(s): I25.10 - Atherosclerotic heart disease of [place] coronary artery without angina pectoris
[2021-06-26] MEDS: CLOPIDOGREL BISULFATE 75 MG TAB PO SCH (07:57)
[2021-06-26] MEDS: METOPROLOL SUCC 50MG EXT REL TAB PO SCH (07:58)
[2021-06-26] MEDS: ISOSORBIDE MONO EXTENDED REL 60 MG TABCR PO SCH (07:58)
[2021-06-26] MEDS: RANOLAZINE 500 MG ER TAB PO SCH ×2 (07:59→19:38)
[2021-06-26] MEDS: POTASSIUM CHLORIDE CRTAB 20 MEQ TABCR PO SCH (08:04)
[2021-06-26] MEDS ORDERED: levoFLOXacin 500 MG TAB PO SCH (11:00)
[2021-06-26] MEDS: ACETAMINOPHEN 325 MG TAB PO PRN ×2 (11:23→23:36)
[2021-06-26] MEDS: ATORVASTATIN 40 MG TAB PO SCH (19:37)
[2021-06-26] MEDS: GABAPENTIN 300 MG CAP PO SCH (19:37)
[2021-06-26] MEDS: RIVAROXABAN 15 MG TAB PO SCH (19:38)
--- NOTE | 2021-06-27 07:50 | Discharge Summary ---
Date of Service June 27, 2021 Admission HPI Per Admitting Provider 80-year-old woman with a past medical history of atrial fibrillation, ANDREY, CAD, history of PCI, CKD, chronic hypoxemic respiratory failure, intrahepatic cholangiocarcinoma who presents to the emergency department from home for evaluation of worsening generalized weakness over the past weeks to months with recurrent falls, chronic decubitus ulcer/wound, fall today with inability to ambulate subsequently.Patient is a poor historian.Daughter at bedside to provide additional history. Patient uses walker to ambulate. Over the past few months she has had progressive lower extremity weakness with recurrent falls. S he last fell this morning and feels that this is the weakest she has ever been. The daughter is worried that the patient cannot function safely at home at this time. Patient also presenting with decubitus ulcer on coccyx and ulcerative lesions on left lower extremity. Patient fell on 05/15/2021 and developed a laceration to the left leg. She was seen in the ED and the wound was closed using Dermabond and Steri-Strips. Patient reports the wound has been slow to heal since that time. She did see her PCP last week and wound culture of left lower extremity was grew Pseudomonas. Patient has been on Levaquin for the past 4 days. She was referred for arterial studies of her lower extremities. Admission Exam Per Admitting Provider Constitutional: in no acute distress, pleasant and normal affect. Vitals as below. Lungs: Clear to auscultation bilaterally with good effort. Cardiac: Regular rate and rhythm.No murmurs.No extremity edema. Abdomen: Bowel sounds present. Soft, mildly tender lower abdominal quadrants on palpation, nondistended.No guarding. No masses. MSK: Quad strength 3/5 bilaterally. Ankle dorsiflexion 5/5 bilaterally. Full ROM of hips. Negative straight leg raise on left. Unable to passively raise right leg. Full sensation to touch bilaterally. Skin: Wound #1: left lower anterior leg ~2x2in with slough and presence of subcutaneous tissue, surrounding skin shows no erythema. Wound #2: left lower leg ~1.3cm covered in eschar with no drainage. Wound #3: coccyx ~1x1cm, base is yellow with drainage and mildly surrounding erythema. Neurologic: 2+ patellar tendon and ankle reflexes bilaterally. Principal Diagnosis Generalized Weakness 2/2 to Anemia, Afib, deconditioning, and decubitus ulcer Discharge Exam General: Weak, frail, elderly female in no acute distress Neck: No significant lymphadenopathy, trachea midline, normal to visual inspection Cardiac: Regular rate and rhythm, normal S1, normal S2, I did not appreciated any significant murmurs rubs or gallops, No calf tenderness, capillary refill is less than 3 seconds Respiratory: Clear to auscultation bilaterally with symmetrical chest rise, I did not appreciate any significant wheezes, rales, rhonchi, no increased work of breathing GI: Normal bowel sounds, soft, nontender in all 4 quadrants, nondistended Neuro: Alert and oriented x4 Psych: Calm, cooperative, logical thought process Discharge Data Allergies Allergy/AdvReac Type Severity Reaction Status Date / Time banana Allergy Unknown HIVES/ITCHI Verified 06/21/21 20:34 NG Iodinated Contrast Media Allergy Unknown "CONTRAST"- Verified 06/21/21 20:34 HIVES/ITCHI NG povidone-iodine Allergy Unknown "drops for Verified 06/21/21 20:34 [From Betadine] eye before injection" - fox/vision trouble soap [From Betadine] Allergy Unknown "drops for Verified 06/21/21 20:34 eye before injection" - fox/vision trouble Consultations 06/21/21 19:53 ED Decision to Admit Stat Ordered Studies 06/21/21 17:41 CT abd pelvis wo con Stat CT cervical spine wo con Stat CT chest diagnostic wo con Stat CT head/brain wo con Stat 06/23/21 18:36 US renal/blad retro comp Routine Hospital Course (1) Ambulatory dysfunction: 80-year-old woman with a past medical history of atrial fibrillation, ANDREY, CAD, history of PCI, CKD, chronic hypoxemic respiratory failure, and 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 Anemia of Chronic Disease: - Hgb on admission 8.0, currently stable at 7.9; patient has a remote history of blood transfusion (indication unclear). No signs of active bleeding, FOBT negative. 06/23: attempted transfusion of 1u PRBC but this was discontinued shortly after it was started due to concerns for transfusion reaction. Attempted transfusion was A positive blood; patient's blood type is A negative, no anti-Rh antibodies detected on labs. - Transfusion reaction workup negative for hemolysis, but pathology recommends AGAINST continuing transfusion of the A positive unit of blood. - Fe 22, Transferrin 79, Ferritin 355; consistent with anemia of chronic disease. - Repeat CBC in 3 days - Continue B12, folate. - Continue clopidogrel, rivaroxaban. Generalized weakness: Progressive LE weakness with recurrent falls over the past few months.Likely multifactorial with suspected etiologies including poor PO intake, acute blood loss anemia, deconditioning, dehydration. Infectious contribution unlikely given lack of leukocytosis, no fever, no urinary symptoms, CXR not suggestive of pneumonia, decubitus ulcer without infectious appearance. -Imaging negative for acute fracture, hemorrhage, CVA. - PT/OT ordered. Recommended acute rehab on discharge JASMINA on CKD IV: - Creatinine on admission 2.5 (baseline ~1.7); improved to 1.96 after IV fluids. - Trend BMP, avoid nephrotoxins, furosemide held. -1.89 on 06/26 - Resume Lasix on d/c Decubitus ulcer of coccyx region and LLE: Actively managed by outpatient wound care; LLE culture (06/15/21) grew Pseudomonas; was started on Levaquin (06/18/21).Imaging without findings suggestive of osteomyelitis. - Wound care consulted follow up on d/c - No infectious si/sx - Continue Levaquin 500 mg Q2d x 10 days Atrial fibrillation/flutter: - Continue metoprolol. - Continue rivaroxaban. -decrease dose to 15 mg qday CAD s/p stent placement: - Continue Plavix. - Continue atorvastatin, isosorbide mononitrate, ranolazine. Asymptomatic bacteruria: - UA with bacteria however patient without urinary symptoms. - No treatment indicated. Neuropathy: - Continue home gabapentin. (2) Lower extremity weakness: (3) Traumatic open wound of left lower leg with delayed healing: (4) Hypomagnesemia: (5) UTI (urinary tract infection): (6) Recurrent falls: (7) Pressure ulcer of coccygeal region, stage 3: (8) Atrial fibrillation, persistent: (9) CAD (coronary artery disease): (10) Acute kidney injury superimposed on CKD: Total Time Total Time Spent Total Time Spent (In Minutes): 76 Discharge Plan Discharge Items Patient Disposition: Transfer [facility] Reason For Visit: HYPOGYLCEMIA Discharge Diagnosis: Generalized Weakness 2/2 to Anemia, Afib, deconditioning, and decubitus ulcer Activity: Resume your previous activity Non-emergency contact: Primary Care Provider Call non-emergency contact if: you have any medication questions Follow-up/Referrals: Jocelynn Mauricio MD [Primary Care Provider] - Diet: Heart Healthy Addtl Attending Provider Instructions: 80-year-old woman with a past medical history of atrial fibrillation, ANDREY, CAD, history of PCI, CKD, chronic hypoxemic respiratory failure, and 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 Anemia of Chronic Disease: - Hgb on admission 8.0, currently stable at 7.9; patient has a remote history of blood transfusion (indication unclear). No signs of active bleeding, FOBT negative. 06/23: attempted transfusion of 1u PRBC but this was discontinued shortly after it was started due to concerns for transfusion reaction. Attempted transfusion was A positive blood; patient's blood type is A negative, no anti-Rh antibodies detected on labs. - Transfusion reaction workup negative for hemolysis, but pathology recommends AGAINST continuing transfusion of the A positive unit of blood. - Fe 22, Transferrin 79, Ferritin 355; consistent with anemia of chronic disease. - Repeat CBC in 3 days - Continue B12, folate. - Continue clopidogrel, rivaroxaban. Generalized weakness: Progressive LE weakness with recurrent falls over the past few months.Likely multifactorial with suspected etiologies including poor PO intake, acute blood loss anemia, deconditioning, dehydration. Infectious contribution unlikely given lack of leukocytosis, no fever, no urinary symptoms, CXR not suggestive of pneumonia, decubitus ulcer without infectious appearance. -Imaging negative for acute fracture, hemorrhage, CVA. - PT/OT ordered. Recommended acute rehab on discharge JASMINA on CKD IV: - Creatinine on admission 2.5 (baseline ~1.7); improved to 1.96 after IV fluids. - Trend BMP, avoid nephrotoxins, furosemide held. -1.89 on 06/26 - Resume Lasix on d/c Decubitus ulcer of coccyx region and LLE: Actively managed by outpatient wound care; LLE culture (06/15/21) grew Pseudomonas; was started on Levaquin (06/18/21).Imaging without findings suggestive of osteomyelitis. - Wound care consulted follow up on d/c - No infectious si/sx - Continue Levaquin 500 mg Q2d x 10 days Atrial fibrillation/flutter: - Continue metoprolol. - Continue rivaroxaban. -decrease dose to 15 mg qday CAD s/p stent placement: - Continue Plavix. - Continue atorvastatin, isosorbide mononitrate, ranolazine. Asymptomatic bacteruria: - UA with bacteria however patient without urinary symptoms. - No treatment indicated. Neuropathy: - Continue home gabapentin. Pending Studies at Discharge: No Stand-Alone Forms: [facility] Skilled Items Patient informed of condition?: Yes DNR: Yes Discharge Level of Care: Skilled Communicable Disease: No Discharge Prognosis: Improving Lines: None Urinary Catheter: No Medications and DC Order Prescriptions: New Xarelto 15 mg Tablet 15 mg PO QPM 30 Days Qty: 30 RF: 0 levofloxacin 500 mg tablet 500 mg PO Q2D 10 Days Qty: 5 RF: 0 Continued isosorbide mononitrate 120 mg tablet extended release 24 hr 240 mg PO QAM RF: 0 gabapentin 300 mg capsule 900 mg PO HS 90 Days Qty: 270 RF: 1 atorvastatin [Lipitor] 40 mg tablet 40 mg PO HS Qty: 90 RF: 3 nitroglycerin 0.4 mg tablet, sublingual 0.4 mg sublingual UD PRN (Reason: Chest Pain) Qty: 25 RF: 5 ranolazine [Ranexa] 500 mg tablet extended release 12 hr 500 mg PO BID Qty: 60 RF: 5 furosemide [Lasix] 40 mg tablet 40 mg PO QAM Qty: 90 RF: 3 (DME) Oxygen Home Liters Per Minute See Rx Instructions .Route Qty: 1 RF: 0 metoprolol succinate 200 mg tablet extended release 24 hr See Rx Instructions .ROUTE .COMPLEX Qty: 135 RF: 3 calcitriol 0.25 mcg capsule 0.25 mcg PO 3XWK Qty: 36 RF: 3 PreserVision AREDS [id number],160-113-100 [id number] Tablet 1 tab PO BIDM RF: 0 potassium chloride 8 mEq tablet extended release 16 meq PO QAM RF: 0 biotin 1,000 mcg Tablet,Chewable 1,000 mcg PO DAILY RF: 0 Ubrelvy 100 mg tablet 100 mg PO DAILY PRN (Reason: migraine headache) RF: 0 clopidogrel 75 mg Tablet 75 mg PO QAM Qty: 30 RF: 6 cyanocobalamin (vitamin B-12) 1,000 mcg/mL Solution 0 mcg IM MONTHLY RF: 0 Afibercept 1 mg INJ MONTHLY RF: 0 prednisolone acetate 1 % drops,suspension 1 drp OPR QAM RF: 0 Discontinued Xarelto 20 mg tablet 20 mg PO QPM RF: 0 levofloxacin 750 mg tablet 750 mg PO DAILY RF: 0 Discharge Orders: Discharge Order (Routine); Ordered 06/27/21 Ordered By: Armando Torre Admission Data Admit Date/Time: 06/21/21 20:26 Attending Provider: Marlo Whiting Admit Provider: Misael Lehman Primary Care Provider: Jocelynn Mauricio Other Providers: [facility] ; Misael Lehman
[2021-06-27] MEDS: POTASSIUM CHLORIDE CRTAB 20 MEQ TABCR PO SCH (08:10)
[2021-06-27] MEDS: CLOPIDOGREL BISULFATE 75 MG TAB PO SCH (08:10)
[2021-06-27] MEDS: ISOSORBIDE MONO EXTENDED REL 60 MG TABCR PO SCH (08:10)
[2021-06-27] MEDS: METOPROLOL SUCC 50MG EXT REL TAB PO SCH (08:11)
[2021-06-27] MEDS: RANOLAZINE 500 MG ER TAB PO SCH (08:11)
--- NOTE | 2021-07-12 11:30 | Coding Query ---
ANEMIA To promote full compliance with coding requirements relating to patient care, physician participation is requested in all cases of heating and refrigeration inspector uncertainty. Please assist us with the question(s) below: Coding Question(s): The record reflects the following clinical findings: There is documentation as on the Discharge Summary of, "Generalized Weakness 2/2 to Anemia", and also, "Generalized weakness: Progressive LE weakness with recurrent falls over the past few months.Likely multifactorial with suspected etiologies including poor PO intake, acute blood loss anemia, deconditioning, dehydration", as well as, "Anemia of Chronic Disease: - Hgb on admission 8.0, currently stable at 7.9; patient has a remote history of blood transfusion (indication unclear). No signs of active bleeding, FOBT negative. 06/23: attempted transfusion of 1u PRBC but this was discontinued shortly after it was started due to concerns for transfusion reaction" and the addendum on the Discharge Summary documents, "Anemia of chronic disease - decreased hgb, likely hemodilutional and without symptoms". Please specify below the Anemia that is the most likely cause of the generalized weakness. ( ) Acute blood loss anemia ( ) Anemia of chronic disease. Please Specify the chronic disease: ( ) Other Anemia: (please specify) (x) Anemia, unspecified Thank you Shanika Lomeli [facility]
== END 2021-06-27 12:45 | DRG 811 ==
LOC: ED 17:10 → SUATTDRO 20:26 → EDINP 20:26 → 3N 06-22 23:04 → 2S 06-23 22:30

== ENCOUNTER 2021-07-20 14:47 | Inpatient (IN) ==
--- NOTE | 2021-07-20 15:21 | Emergency Department Note ---
Impression & Plan Hypoglycemia, Transaminitis, Anemia, Abnormal blood electrolyte level ED Provider Note NAME: ISIDRO GRAY AGE: 80 SEX: F : 1940 ARRIVES VIA: Ambulance INFORMANT: Patient, ED PROVIDER(S): Pablo Watts MD Chief Complaint: Weakness, low blood sugar HPI: Patient has been having some ongoing weakness for the last several days and states that this is gotten progressively worse. The patient does check her b lood sugar every other day because she thinks it is important to do so. Patient noted BSG of 33. The patient reportedly ate some jellybeans to improve this jellybeans. BSG upon arrival is in the 60s. The patient denies any nausea vomiting or chest pains. The patient did have some diarrhea yesterday but thought this was secondary to eating an orange. The patient is had poor appetite is unsure as to whether not she can care for self very well. No recent falls or trauma. The patient was seen by the visiting nurse today and referred here for further evaluation and treatment. Patient did have a recent admission she states within the last month where she was hospitalized for several days went [facility] and went home. The patient states she does get in-home care from visiting nurse twice a week. Patient does have some chronic bilateral lower extremity wounds for which she is receiving care he does have some chronic swelling. ROS: See HPI for pertinent positives and negatives. A total of 10 systems were reviewed and otherwise negative. Past medical history: See below Surgical history: See below Social history: See below Physical Exam: GENERAL: NAD, wearing glasses, wearing a mask, non-toxic. EYE EXAM: Normal conjunctiva. PERRL, no anisocoria and EOM's grossly intact w/o pain. NECK: Supple, no nuchal rigidity, no adenopathy, non-tender. No signs of meningismus. LUNGS: Clear to auscultation. Normal chest wall mechanics. HEART: Irregularly irregular, no MRG. ABDOMEN: Abdomen soft, non-tender, normo-active bowel sounds, no masses, no rebound or guarding. BACK: No CVA TTP. SKIN: No rashes and no bruising. UPPER EXTREMITIES: Upper extremities are grossly normal. LOWER EXTREMITIES: Grossly normal, 1+ symmetric lower extremity edema with bandages over the bilateral lower extremities. No TTP. NEURO EXAM: A&O x3, cranial nerves II-XII grossly intact, normal speech, moves all 4 extremities on command w/o issue. Differential diagnoses: Infection, dehydration, metabolic abnormality, hypo/hyperglycemia, electrolyte disturbance, anemia, hypoxia, cardiac sources, intracerebral event, toxicologic, neurologic, as well as other pathologies. Course: Patient was seen and evaluated the bedside. Full history physical exam was performed. EKG interpreted by me Stef dick, rate 78, wide QRS, normal axis, PVCs noted. Imaging Studies: See Below Cardiac monitoring: An order was placed for continuous cardiac monitoring. The monitor shows a rate of 82 with irregularly irregular rhythm. MDM: Patient did present due to concern for lower blood sugar. The patient is also concerned about her ability to care for herself at home and is considering the possibility of placement. Blood work was obtained. Patient has a normal white counts with some anemia hemoglobin 8.2. The patient's platelet count is unremarkable. The patient does have hypokalemia hypocalcemia and hypomagnesemia. The patient's presenting [id number] blood glucose was 62. The patient did eat crackers and drink geeta kanika and ate peanut butter. Patient does have mild elevations in AST ALT and alk phos. Bilirubin is not elevated. The patient does not complain of any right upper quadrant pain. Digoxin level pending. Covid negative. After further discussion of the patient the patient does not want to [facility]. Given this the patient will require inpatient treatment in order to be placed as the patient can otherwise not be placed at this time. I am concerned about the patient's ability to care for herself at home. I did speak with the on-call hospitalist Dr. Linton and the patient was admitted to the medicine service repeat BSG was greater than 100. Patient was ordered replacement for her hypokalemia hypocalcemia and hypomagnesemia Past Med/Surg History Medical History Benign essential tremor CAD (coronary artery disease) CABG x 1 vessel 2016 Cerebellar infarct Follows with neuro= "Prior cerebellar stroke without residual deficits" - continue ASA and statin Chronic diastolic congestive heart failure Chronic hypoxemic respiratory failure Chronic kidney disease (CKD), stage III (moderate) Chronic low back pain Copper deficiency Corneal dystrophy CVA (cerebral vascular accident) NO RESIDUAL AT AGE 50 Diabetes Endothelial corneal dystrophy Family history of reaction to anesthesia SISTER - IRAM, N/V GERD (gastroesophageal reflux disease) History of cardioversion 1978 & AUGUST 2020 History of UT (myocardial infarction) 1978 History of vertigo Hyperlipemia Hypertension Intrahepatic cholangiocarcinoma Liver cancer DX AUGUST 2020 - [facility] Liver mass DX JULY 2020 Macular degeneration Mitral regurgitation Mild to moderate per 2019 ECHO Multiple pulmonary nodules determined by computed tomography of lung Osteoporosis Osteoporosis with fracture fx ribs from falling, NO CURRENT FRACTURES Pancreatic tumor had surgery removal of head Paroxysmal atrial fibrillation and flutter--On Xarelto , DX 2018 - HX CARDIOVERSION AUGUST 2020 Peripheral neuropathy Pulmonary hypertension PASP 30-40mmHg Pulmonary nodule monitored yearly Sleep apnea Spondylosis Temporal lobe epilepsy Follows with neuro Started on Keppra in Spring 2019 with no further events since that time Continue Keppra per 08/10/20 neuro note Weakness Surgical History Gastric bypass status for obesity H/O abdominoplasty WITH NECK REPAIRED WELL H/O cataract extraction right and left H/O ovarian cystectomy H/O thumb surgery left and right H/O Whipple procedure History of appendectomy History of breast biopsy several both sides History of corneal transplant right eye History of ear surgery 1967, LEFT History of liver biopsy History of resection of pancreas head of pancreas removed 2009 History of total right hip replacement History of transmyocardial revascularization Hx of cardiac cath 2013, AUGUST 2015, october 2020, november 2020 Hx of cholecystectomy S/P CABG (coronary artery bypass graft) 2016 S/P cholecystectomy S/P tonsillectomy and adenoidectomy S/P trigger finger release left thumb x3, one surgery on right Status post right knee replacement Family History Sister Breast cancer 2 sisters Diabetes 2 sisters Heart disease Cancer 2 sisters Father Myocardial infarction Heart disease Hypertension Brother Myocardial infarction Diabetes Heart disease 2 brothers Hypertension Mother Non-Hodgkin lymphoma Stroke Cancer Grandfather Diabetes Heart disease Denies family history of Ovarian cancer Prostate cancer Colorectal cancer Social History Smoking Status: Never smoker Age Started Using Tobacco: 16; Age Quit Using Tobacco: 50; packs per day: 1.5; Cigarettes Per Day: 30; Second Hand Exposure: No; Hx Alcohol Use: No Hx Substance Use: No Preferred Language: Urdu Communication Ability: Effective Visual Impairment: Limited Hearing Ability: Normal Senior Estimator Required: No Beliefs That Will Affect Care: None marital status: / Current Living Situation: Family Current Living Situation Comment: 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 current occupational status: retired Feels Safe at Home: Yes Childhood Exposure to Second-Hand Smoke: No caffeine: No during the past year weight has: decreased > 10 lbs Dental Care, Regularly: Yes Physical Activity Frequency: Does not Exercise Seatbelt Use: always Sunscreen Use: Yes Do you think of yourself as: straight/heterosexual Gender Identity: Female Assistive Devices: None Allergies Allergies Allergy/AdvReac Type Severity Reaction Status Date / Time banana Allergy Unknown HIVES/ITCHI Verified 07/20/21 17:08 NG Iodinated Contrast Media Allergy Unknown "CONTRAST"- Verified 07/20/21 17:08 HIVES/ITCHI NG povidone-iodine Allergy Unknown "drops for Verified 07/20/21 17:08 [From Betadine] eye before injection" - fox/vision trouble soap [From Betadine] Allergy Unknown "drops for Verified 07/20/21 17:08 eye before injection" - fox/vision trouble Home Meds Home Medications Medication Instructions Recorded Confirmed vitamins A,C,E-bkcn-bvdnlm 7,160 1 tab PO BIDM 07/03/19 07/20/21 unit-113 mg-100 unit tablet (PreserVision AREDS) potassium chloride 8 mEq 16 meq PO QAM 09/08/20 07/20/21 tablet,extended release ubrogepant 100 mg tablet (Ubrelvy) 100 mg PO DAILY PRN 12/09/20 07/20/21 prednisolone acetate 1 % eye 1 drp OPR QAM ml 03/24/21 07/20/21 drops,suspension cyanocobalamin (vitamin B-12) 0 mcg IM MONTHLY 05/15/21 07/20/21 1,000 mcg/mL injection solution isosorbide mononitrate 120 mg 240 mg PO QAM tab 06/18/21 07/20/21 tablet,extended release 24 hr aflibercept 2 mg/0.05 mL 1 mg INTRAVITREAL MONTHLY 07/06/21 07/20/21 intravitreal syringe (Eylea) digoxin 125 mcg (0.125 mg) tablet 125 mcg PO Q2D 07/06/21 07/20/21 epinephrine 0.3 mg/0.3 mL 0.3 mg SUBCUT UD PRN 07/06/21 07/20/21 injection, auto-injector hydrocodone 5 mg-acetaminophen 325 1 tab PO Q6H PRN 07/06/21 07/20/21 mg tablet rivaroxaban 15 mg tablet (Xarelto) 15 mg PO .AFTER DINNER 07/06/21 07/20/21 Previous Rx's Medication Instructions Recorded gabapentin 300 mg capsule 900 mg PO HS 90 Days #270 cap 08/26/20 atorvastatin 40 mg tablet (Lipitor) 40 mg PO HS #90 tab 08/28/20 nitroglycerin 0.4 mg sublingual 0.4 mg SUBLINGUAL UD PRN #25 tab 01/04/21 tablet clopidogrel 75 mg tablet 75 mg PO QAM #30 tab 01/09/21 ranolazine 500 mg tablet,extended 500 mg PO BID #60 tab 04/05/21 release,12 hr (Ranexa) furosemide 40 mg tablet (Lasix) 40 mg PO QAM #90 tab 04/07/21 Oxygen Home #1 ea 04/21/21 calcitriol 0.25 mcg capsule 0.25 mcg PO 3XWK #36 cap 06/23/21 glucose 4 gram chewable tablet 4 g PO Q15M PRN #10 tab 07/14/21 (Dex4 Glucose) metoprolol succinate 200 mg See Rx Instructions .ROUTE 07/15/21 tablet,extended release 24 hr .COMPLEX #135 tab Results & Data (ED) Vital Signs Vital Signs - 24 hr 07/20/21 14:50 07/20/21 15:00 07/20/21 15:31 Temperature 36.4 C L Temperature Source Oral Pulse Rate 88 79 103 H Pulse Rate from SpO2 Sensor Respiratory Rate 16 15 20 Blood Pressure 136/89 133/70 159/87 H Blood Pressure Mean 104 91 111 Blood Pressure Position Lying Pulse Oximetry 98 Oxygen Delivery Method Room Air Sepsis Recent Fever Within 48 Hours No Sepsis New/Unexplained Change in Mental Status N/A Sepsis Action Taken by Nursing No Action Required 07/20/21 16:00 07/20/21 17:00 07/20/21 17:30 Temperature Temperature Source Pulse Rate 77 66 65 Pulse Rate from SpO2 Sensor 64 Respiratory Rate 12 19 16 Blood Pressure 117/72 117/52 L 125/55 L Blood Pressure Mean 87 73 78 Blood Pressure Position Pulse Oximetry 93 100 Oxygen Delivery Method Room Air Room Air Sepsis Recent Fever Within 48 Hours Sepsis New/Unexplained Change in Mental Status Sepsis Action Taken by Snf Medications Current Medication List: was personally reviewed by me Laboratory Data Attestation: I reviewed the patient's lab results. Result diagrams: 07/20/21 15:09 07/20/21 20:27 Lab Results 07/20/21 07/20/21 07/20/21 Range/Units 14:59 15:09 15:09 WBC 9.36 (4.8-10.8) K/uL RBC 2.55 L (4.2-5.4) M/uL Hgb 8.2 L (12.0-16.0) g/dL Hct 25.8 L (37-47) % MCV 101.2 H (80-100) fL MCH 32.2 (25-34) pg MCHC 31.8 L (32-36) g/dL RDW Std Deviation 57.5 H (36.4-46.3) fL RDW Coeff of Argenis 15.6 H (11.5-14.5) % Plt Count 321 (130-400) K/uL MPV 9.9 (7.4-10.4) fL Immature Gran % (Auto) 0.4 % Neut % (Auto) 80.0 % Lymph % (Auto) 9.6 % Marin % (Auto) 9.8 % Eos % (Auto) 0.2 % Baso % (Auto) 0.0 % Neut # (Auto) 7.48 H (1.4-6.5) K/uL Lymph # (Auto) 0.90 L (1.2-3.4) K/uL Marin # (Auto) 0.92 H (0.11-0.59) K/uL Eos # (Auto) 0.02 (0-0.5) K/uL Baso # (Auto) 0.00 (0-0.2) K/uL Immature Gran # (Auto) 0.04 H (0.00-0.02) K/uL PT (9.0-12.0) Seconds INR (0.9-1.1) Sodium (136-145) mmol/L Potassium (3.5-5.1) mmol/L Chloride (98-107) mmol/L Carbon Dioxide (21-32) mmol/L Anion Gap (3-11) BUN (6-23) mg/dl Creatinine (0.6-1.2) mg/dl Est Cr Clr Drug Dosing ml/min Est GFR ( Amer) ml/min Est GFR (Non-Af Amer) ml/min BUN/Creatinine Ratio (10-20) Glucose (70-99(Fasting)) mg/dl POC Glucose 62 L* (70-99) mg/dl Calcium (8.5-10.1) mg/dl Magnesium (1.7-2.4) mg/dl Total Bilirubin (0.2-1.0) mg/dl AST (13-39) U/L ALT (7-52) U/L Alkaline Phosphatase (34-104) U/L Troponin I (0-0.04) ng/ml Total Protein (6.0-8.3) gm/dl Albumin (3.4-5.0) gm/dl Globulin (2.5-4.0) gm/dl Albumin/Globulin Ratio (0.9-2) TSH 2.404 (0.300-4.500) uIu/ml Digoxin (0.8-2.0) ng/ml 07/20/21 07/20/21 07/20/21 Range/Units 15:09 15:09 16:39 WBC (4.8-10.8) K/uL RBC (4.2-5.4) M/uL Hgb (12.0-16.0) g/dL Hct (37-47) % MCV (80-100) fL MCH (25-34) pg MCHC (32-36) g/dL RDW Std Deviation (36.4-46.3) fL RDW Coeff of Argenis (11.5-14.5) % Plt Count (130-400) K/uL MPV (7.4-10.4) fL Immature Gran % (Auto) % Neut % (Auto) % Lymph % (Auto) % Marin % (Auto) % Eos % (Auto) % Baso % (Auto) % Neut # (Auto) (1.4-6.5) K/uL Lymph # (Auto) (1.2-3.4) K/uL Marin # (Auto) (0.11-0.59) K/uL Eos # (Auto) (0-0.5) K/uL Baso # (Auto) (0-0.2) K/uL Immature Gran # (Auto) (0.00-0.02) K/uL PT 16.0 H (9.0-12.0) Seconds INR 1.6 H (0.9-1.1) Sodium 143 (136-145) mmol/L Potassium 2.9 L (3.5-5.1) mmol/L Chloride 108 H (98-107) mmol/L Carbon Dioxide 22 (21-32) mmol/L Anion Gap 13 H (3-11) BUN 27 H (6-23) mg/dl Creatinine 1.31 H (0.6-1.2) mg/dl Est Cr Clr Drug Dosing 25.4 ml/min Est GFR ( Amer) 44.1 ml/min Est GFR (Non-Af Amer) 38.1 ml/min BUN/Creatinine Ratio 20.6 H (10-20) Glucose 139 H (70-99(Fasting)) mg/dl POC Glucose (70-99) mg/dl Calcium 7.4 L (8.5-10.1) mg/dl Magnesium 1.6 L (1.7-2.4) mg/dl Total Bilirubin 0.8 (0.2-1.0) mg/dl AST 296 H (13-39) U/L ALT 120 H (7-52) U/L Alkaline Phosphatase 134 H (34-104) U/L Troponin I 0.04 (0-0.04) ng/ml Total Protein 5.3 L (6.0-8.3) gm/dl Albumin 2.7 L (3.4-5.0) gm/dl Globulin 2.6 (2.5-4.0) gm/dl Albumin/Globulin Ratio 1.0 (0.9-2) TSH (0.300-4.500) uIu/ml Digoxin 0.4 L (0.8-2.0) ng/ml Administered Medications Discontinued Medications Sodium Chloride (Nss) 500 mls @ 999 mls/hr IV .Q31M HOMAR Stop: 07/20/21 16:00 Last Infusion: 07/20/21 16:03 Dose: 0 mls/hr Documented by: [id number] Admin: 07/20/21 15:32 Dose: 999 mls/hr Documented by: [id number] Calcium Gluconate () 1,000 mg in 60 mls @ 240 mls/hr IV NOW STA Stop: 07/20/21 18:16 Last Infusion: 07/20/21 19:04 Dose: 0 mls/hr Documented by: [id number] Admin: 07/20/21 18:24 Dose: 240 mls/hr Documented by: [id number] Magnesium Sulfate/Dextrose (Magnesium Sulfate / D5w) 1 gm in 100 mls @ 100 mls/hr IV NOW STA Stop: 07/20/21 19:01 Last Infusion: 07/20/21 19:45 Dose: 0 mls/hr Documented by: [id number] Admin: 07/20/21 19:09 Dose: 100 mls/hr Documented by: [id number] Potassium Chloride (Potassium Chloride Crtab 20 Meq Tabcr) 40 meq PO NOW STA Stop: 07/20/21 18:03 Last Admin: 07/20/21 18:24 Dose: 40 meq Documented by: [id number] Potassium Chloride (Potassium Chloride Crtab 20 Meq Tabcr) 40 meq PO NOW STA Stop: 07/20/21 20:00 Last Admin: 07/20/21 20:26 Dose: 40 meq Documented by: [id number] Imaging Data Radiologist's Impression: Chest X-Ray 07/20/21 15:19 XR chest 1V portable CLINICAL HISTORY: weakness COMPARISON STUDY: Chest radiograph and chest CT July 06, 2021. FINDINGS: Incidental note is made of median sternotomy wires. Cardiomegaly is noted without evidence for pulmonary edema. Trace left pleural effusion is noted. Mild left basilar opacity favors atelectasis. No pneumothorax. IMPRESSION: 1. Trace left pleural effusion with left basilar opacity that favors atelectasis. 2. Cardiomegaly without evidence for pulmonary edema. ACT 112: Negative or not required by law. Electronically signed by: Hammad Aranda M.D. 07/20/2021 3:50 PM Discharge Plan Visit Data Chief Complaint: Hypoglycemia Stated Complaint: DIABETIC ED Provider: Pablo Watts Discharge Problem: Hypoglycemia, Transaminitis, Anemia, Abnormal blood electrolyte level Patient Disposition: Admitted As Inpatient Discharge Instructions Interventions: ED Discharge Assessment Last Done: 07/20/21 21:57
[2021-07-20] MEDS ORDERED: SODIUM CHLORIDE 0.9% 500 ML IV SCH (15:30)
[2021-07-20 15:45] LABS: Eosinophils # (auto) 0.02 K/uL (0-0.5); Eosinophils % (auto) 0.2 %; Hematocrit (blood only) 25.8 % (37-47); Hemoglobin 8.2 g/dL (12.0-16.0); Immature Granulocytes # (auto) 0.04 K/uL (0.00-0.02); Immature Granulocytes % (auto) 0.4 %; Lymphocytes % (auto) 9.6 %; Mean Corpuscular Hemoglobin 32.2 pg (25-34); Mean Corpuscular Hgb Conc 31.8 g/dL (32-36); Mean Corpuscular Volume 101.2 fL (80-100); Mean Platelet Volume 9.9 fL (7.4-10.4); Monocytes # (auto) 0.92 K/uL (0.11-0.59); Monocytes % (auto) 9.8 %; Neutrophils # (auto) 7.48 K/uL (1.4-6.5); Platelet Count 321 K/uL (130-400); RDW Coefficient of Variation 15.6 % (11.5-14.5); RDW Standard Deviation 57.5 fL (36.4-46.3); Red Blood Count 2.55 M/uL (4.2-5.4); White Blood Count 9.36 K/uL (4.8-10.8)
--- NOTE | 2021-07-20 15:52 | XRay Report ---
XR chest 1V portable CLINICAL HISTORY: weakness COMPARISON STUDY: Chest radiograph and chest CT July 06, 2021. FINDINGS: Incidental note is made of median sternotomy wires. Cardiomegaly is noted without evidence for pulmonary edema. Trace left pleural effusion is noted. Mild left basilar opacity favors atelectas is. No pneumothorax. IMPRESSION: 1. Trace left pleural effusion with left basilar opacity that favors atelectasis. 2. Cardiomegaly without evidence for pulmonary edema. ACT 112: Negative or not required by law. Electronically signed by: Hammad Aranda M.D. 07/20/2021 3:50 PM
--- NOTE | 2021-07-20 17:12 | Electrocardiogram Report ---
Test Reason : Blood Pressure : / mmHG Vent. Rate : 078 BPM Atrial Rate : 065 BPM P-R Int : 000 ms QRS Dur : 130 ms QT Int : 474 ms P-R-T Axes : 000 066 -42 degrees QTc Int : 540 ms Atrial fibrillation with premature ventricular or aberrantly conducted complexes Right bundle branch block Possible Lateral infarct (cited on or before 23-JUN-2021) T wave abnormality, consider inferior ischemia Abnormal ECG When compared with ECG of 06-JUL-2021 12:29, Atrial fibrillation has replaced Atrial flutter QT has lengthened Confirmed by Dmitry Kelley ([id number]) on 07/20/2021 5:12:12 PM Referred By: Confirmed By:Diego Kelley
[2021-07-20 17:22] LABS: Troponin I 0.04 ng/ml (0-0.04)
[2021-07-20 17:25] LABS: Albumin Level 2.7 gm/dl (3.4-5.0); BUN Creatinine Ratio 20.6 (10-20); Bilirubin,Total 0.8 mg/dl (0.2-1.0); Calcium 7.4 mg/dl (8.5-10.1); Creatinine Clr Calc Pharmacy 25.4 ml/min; Est GFR (African American) 44.1 ml/min; Est GFR (Non-African American) 38.1 ml/min; Globulin 2.6 gm/dl (2.5-4.0); Magnesium 1.6 mg/dl (1.7-2.4); Potassium 2.9 mmol/L (3.5-5.1); Total Protein 5.3 gm/dl (6.0-8.3)
[2021-07-20] MEDS ORDERED: MAGNESIUM SULFATE / D5W 1 GM/100 ML BAG IV STA (18:02)
[2021-07-20] MEDS ORDERED: CALCIUM GLUCONATE 1,000 MG/60 ML BAG IV STA (18:02)
[2021-07-20] MEDS ORDERED: POTASSIUM CHLORIDE CRTAB 20 MEQ TABCR PO STA ×2 (18:02→19:59)
--- NOTE | 2021-07-20 20:14 | History & Physical Report ---
Date of Service July 20, 2021 Assessment & Plan (1) Hypoglycemia: Plan: 80yo female with a PMH of atrial fibrillation, ANDREY, CAD s/p PCI, CKD, gastric bypass, and intrahepatic cholangiocarcinoma presents with a few-week history of progressive muscular weakness and a few-day history of intermittent hypoglycemia. Hypoglycemia, generalized weakness Patient with intermittent hypoglycemia of unclear origin; patient has a history of DM2 but has been off DM2 meds since gastric bypass surgery a few years ago Denies insulin or insulin secretagogue use Differential includes inanition, malignancy/endocrine tumor, adrenal insufficiency, others Patient noted with unclear history of intrahepatic cholangiocarcinoma; per patient, this "resolved without treatment"; LFTs wnl on last admission but elevated at this time VSS, patient not septic, no obvious source of infection Patient anemic though this appears to be chronic and stable BSG ACHS; repeat A1c drawn Random cortisol level drawn US liver ordered Hypoglycemic protocol orders placed Patient is taking PO and does not have an JASMINA - IVF not indicated at this time Anemia Patient with chronic macrocytic anemia in the setting of history gastric bypass surgery Patient already on monthly B12 injections Trend daily CBC Hypokalemia Received KCl 40mEq PO x1 in ED, additional 40mEq PO x1 ordered Trend daily BMP, replete as needed Transaminitis, history of intrahepatic cholangiocarcinoma US liver as above Trend daily CMP Decubitus ulcer Does not appear infected at this time Wound care consult placed CKD3 Creatinine on admission 1.44 (baseline ~1.5) Avoid nephrotoxins, Atrial fibrillation Continue home xarelto, metoprolol, digoxin CAD s/p PCI Continue home atorvastatin, clopidogrel, isosorbide Peripheral neuropathy Continue home gabapentin FEN: heart healthy diet, Code status: DNR/DNI DVT ppx: home xarelto PT/OT: ordered Case management: consulted Dispo: med/surg History of Present Illness Primary Care Provider: Jocelynn Mauricio MD 80yo female with a PMH of atrial fibrillation, ANDREY, CAD s/p PCI, CKD, gastric bypass, and intrahepatic cholangiocarcinoma presents with a few-month history of progressive muscular weakness and a few-day history of intermittent hypoglycemia. Patient previously carried a diagnosis of DM2 but patient returned to the prediabetic range after gastric bypass surgery; patient has been off DM2 meds since then, but continues to periodically monitor her blood sugar. Patient notes her readings over the past week (taken first thing in the AM) have ranged from 32 to 110; patient came to the hospital today after noting a BSG in the 30s. Patient endorses a few-day history of increased appetite (though noting low PO intake secondary to feeling too weak to walk to the kitchen), and a one-day history of increased urinary frequency. No pain/burning with urination. Patient denies fever, chills, headache, CP, abdominal pain, nausea, vomiting, or other symptoms. Patient was recently hospitalized at [facility] from 06/21/21 to 06/27/21 for LE weakness and recurrent falls; at that time, patient's symptoms were felt to be multifactorial in etiology including poor PO intake, acute blood loss anemia, deconditioning, and dehydration. Infectious contribution was felt to be unlikely given lack of leukocytosis, no fever, no urinary symptoms, CXR not suggestive of pneumonia, decubitus ulcer without infectious appearance. Patient was discharged to [facility] where she worked with PT; patient left [facility] after four days and was discharged home. Patient does not think she had much of an improvement after her stay at [facility]. Allergies Allergy/AdvReac Type Severity Reaction Status Date / Time banana Allergy Unknown HIVES/ITCHI Verified 07/20/21 17:08 NG Iodinated Contrast Media Allergy Unknown "CONTRAST"- Verified 07/20/21 17:08 HIVES/ITCHI NG povidone-iodine Allergy Unknown "drops for Verified 07/20/21 17:08 [From Betadine] eye before injection" - fox/vision trouble soap [From Betadine] Allergy Unknown "drops for Verified 07/20/21 17:08 eye before injection" - fox/vision trouble Home Medications Medication Instructions Recorded Confirmed Type vitamins A,C,A-rkdi-dvqwan 7,160 1 tab PO BIDM 07/03/19 07/20/21 History unit-113 mg-100 unit tablet (PreserVision AREDS) gabapentin 300 mg capsule 900 mg PO HS 90 Days #270 cap 08/26/20 07/20/21 Rx atorvastatin 40 mg tablet (Lipitor) 40 mg PO HS #90 tab 08/28/20 07/20/21 Rx potassium chloride 8 mEq 16 meq PO QAM 09/08/20 07/20/21 History tablet,extended release ubrogepant 100 mg tablet (Ubrelvy) 100 mg PO DAILY PRN 12/09/20 07/20/21 History nitroglycerin 0.4 mg sublingual 0.4 mg SUBLINGUAL UD PRN #25 tab 01/04/21 07/20/21 Rx tablet clopidogrel 75 mg tablet 75 mg PO QAM #30 tab 01/09/21 07/20/21 Rx prednisolone acetate 1 % eye 1 drp OPR QAM ml 03/24/21 07/20/21 History drops,suspension ranolazine 500 mg tablet,extended 500 mg PO BID #60 tab 04/05/21 07/20/21 Rx release,12 hr (Ranexa) furosemide 40 mg tablet (Lasix) 40 mg PO QAM #90 tab 04/07/21 07/20/21 Rx Oxygen Home #1 ea 04/21/21 07/20/21 Rx cyanocobalamin (vitamin B-12) 0 mcg IM MONTHLY 05/15/21 07/20/21 History 1,000 mcg/mL injection solution isosorbide mononitrate 120 mg 240 mg PO QAM tab 06/18/21 07/20/21 History tablet,extended release 24 hr calcitriol 0.25 mcg capsule 0.25 mcg PO 3XWK #36 cap 06/23/21 07/20/21 Rx aflibercept 2 mg/0.05 mL 1 mg INTRAVITREAL MONTHLY 07/06/21 07/20/21 History intravitreal syringe (Eylea) digoxin 125 mcg (0.125 mg) tablet 125 mcg PO Q2D 07/06/21 07/20/21 History epinephrine 0.3 mg/0.3 mL 0.3 mg SUBCUT UD PRN 07/06/21 07/20/21 History injection, auto-injector hydrocodone 5 mg-acetaminophen 325 1 tab PO Q6H PRN 07/06/21 07/20/21 History mg tablet rivaroxaban 15 mg tablet (Xarelto) 15 mg PO .AFTER DINNER 07/06/21 07/20/21 History glucose 4 gram chewable tablet 4 g PO Q15M PRN #10 tab 07/14/21 07/20/21 Rx (Dex4 Glucose) metoprolol succinate 200 mg See Rx Instructions .ROUTE 07/15/21 07/20/21 Rx tablet,extended release 24 hr .COMPLEX #135 tab Past Med/Surg History Medical History Benign essential tremor CAD (coronary artery disease) CABG x 1 vessel 2016 Cerebellar infarct Follows with neuro= "Prior cerebellar stroke without residual deficits" - continue ASA and statin Chronic diastolic congestive heart failure Chronic hypoxemic respiratory failure Chronic kidney disease (CKD), stage III (moderate) Chronic low back pain Copper deficiency Corneal dystrophy CVA (cerebral vascular accident) NO RESIDUAL AT AGE 50 Diabetes Endothelial corneal dystrophy Family history of reaction to anesthesia SISTER - HIVES, N/V GERD (gastroesophageal reflux disease) History of cardioversion 1978 & AUGUST 2020 History of [place] (myocardial infarction) 1978 History of vertigo Hyperlipemia Hypertension Intrahepatic cholangiocarcinoma Liver cancer DX AUGUST 2020 - [facility] Liver mass DX JULY 2020 Macular degeneration Mitral regurgitation Mild to moderate per 2018 ECHO Multiple pulmonary nodules determined by computed tomography of lung Osteoporosis Osteoporosis with fracture fx ribs from falling, NO CURRENT FRACTURES Pancreatic tumor had surgery removal of head Paroxysmal atrial fibrillation and flutter--On Xarelto , DX 2018 - HX CARDIOVERSION AUGUST 2020 Peripheral neuropathy Pulmonary hypertension PASP 30-40mmHg Pulmonary nodule monitored yearly Sleep apnea Spondylosis Temporal lobe epilepsy Follows with neuro Started on Keppra in Spring 2019 with no further events since that time Continue Keppra per 08/10/20 neuro note Weakness Surgical History Gastric bypass status for obesity H/O abdominoplasty WITH NECK REPAIRED WELL H/O cataract extraction right and left H/O ovarian cystectomy H/O thumb surgery left and right H/O Whipple procedure History of appendectomy History of breast biopsy several both sides History of corneal transplant right eye History of ear surgery 1967, LEFT History of liver biopsy History of resection of pancreas head of pancreas removed 2009 History of total right hip replacement History of transmyocardial revascularization Hx of cardiac cath 2013, AUGUST 2015, october 2020, november 2020 Hx of cholecystectomy S/P CABG (coronary artery bypass graft) 2016 S/P cholecystectomy S/P tonsillectomy and adenoidectomy S/P trigger finger release left thumb x3, one surgery on right Status post right knee replacement Family History Sister Breast cancer 2 sisters Diabetes 2 sisters Heart disease Cancer 2 sisters Father Myocardial infarction Heart disease Hypertension Brother Myocardial infarction Diabetes Heart disease 2 brothers Hypertension Mother Non-Hodgkin lymphoma Stroke Cancer Grandfather Diabetes Heart disease Denies family history of Ovarian cancer Prostate cancer Colorectal cancer Social History Smoking Status: Former smoker Age Started Using Tobacco: 16; Age Quit Using Tobacco: 50; packs per day: 1.5; Cigarettes Per Day: 30; Second Hand Exposure: No; Do You Dip or Chew Tobacco: No; Tobacco Cessation Education Requested by Patient: No Hx Alcohol Use: No Hx Substance Use: No Preferred Language: Chinese Communication Ability: Effective Visual Impairment: Limited Hearing Ability: Normal Assembler Musical Equipment Required: No Beliefs That Will Affect Care: None marital status: / Current Living Situation: Alone Current Living Situation Comment: 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 current occupational status: retired Other Information That Helps Us Care for You: No Feels Safe at Home: Yes Safety Concerns: Feels Safe At This Time Childhood Exposure to Second-Hand Smoke: No caffeine: No during the past year weight has: decreased > 10 lbs Dental Care, Regularly: Yes Physical Activity Frequency: Does not Exercise Seatbelt Use: always Sunscreen Use: Yes Do you think of yourself as: straight/heterosexual Gender Identity: Female Assistive Devices: Walker Review of Systems Review of Systems: See HPI Physical Exam Physical Exam: Constitutional: tired-appearing, NAD HEENT: NCAT, no scleral icterus, MMM CV: irregularly irregular rhythm, no murmur appreciated, extremities well- perfused, no LE edema Resp: CTABL, no wheezes/rales/rhonchi appreciated, no increased work of breathing GI: soft, nondistended, nontender, BS normoactive MSK: no gross deformities appreciated Skin: sacral decubitus ulcer noted without surrounding erythema, bandaged wounds on legs noted without surrounding erythema Neuro: alert, oriented, no focal neurologic deficit appreciated Results & Data Results & Data ([facility]) Vital Signs (Past 12 Hours) Vital Signs Temp Pulse Resp BP Pulse Ox 07/20/21 17:30 65 16 125/55 L 100 07/20/21 17:00 66 19 117/52 L 93 07/20/21 16:00 77 12 117/72 07/20/21 15:31 103 H 20 159/87 H 07/20/21 15:00 79 15 133/70 07/20/21 14:50 36.4 C L 88 16 136/89 98 Laboratory Results Laboratory Results WBC 9.36 K/uL (4.8-10.8) 07/20/21 15:09 RBC 2.55 M/uL (4.2-5.4) L 07/20/21 15:09 Hgb 8.2 g/dL (12.0-16.0) L 07/20/21 15:09 Hct 25.8 % (37-47) L 07/20/21 15:09 MCV 101.2 fL (80-100) H 07/20/21 15:09 MCH 32.2 pg (25-34) 07/20/21 15:09 MCHC 31.8 g/dL (32-36) L 07/20/21 15:09 RDW Std Deviation 57.5 fL (36.4-46.3) H 07/20/21 15:09 RDW Coeff of Argenis 15.6 % (11.5-14.5) H 07/20/21 15:09 Plt Count 321 K/uL (130-400) 07/20/21 15:09 MPV 9.9 fL (7.4-10.4) 07/20/21 15:09 Immature Gran % (Auto) 0.4 % 07/20/21 15:09 Neut % (Auto) 80.0 % 07/20/21 15:09 Lymph % (Auto) 9.6 % 07/20/21 15:09 [place] % (Auto) 9.8 % 07/20/21 15:09 Eos % (Auto) 0.2 % 07/20/21 15:09 Baso % (Auto) 0.0 % 07/20/21 15:09 Neut # (Auto) 7.48 K/uL (1.4-6.5) H 07/20/21 15:09 Lymph # (Auto) 0.90 K/uL (1.2-3.4) L 07/20/21 15:09 [place] # (Auto) 0.92 K/uL (0.11-0.59) H 07/20/21 15:09 Eos # (Auto) 0.02 K/uL (0-0.5) 07/20/21 15:09 Baso # (Auto) 0.00 K/uL (0-0.2) 07/20/21 15:09 Immature Gran # (Auto) 0.04 K/uL (0.00-0.02) H 07/20/21 15:09 PT 16.0 Seconds (9.0-12.0) H 07/20/21 15:09 INR 1.6 (0.9-1.1) H 07/20/21 15:09 Sodium 140 mmol/L (136-145) 07/20/21 20:27 Potassium 2.9 mmol/L (3.5-5.1) L 07/20/21 20:27 Chloride 108 mmol/L (98-107) H 07/20/21 20:27 Carbon Dioxide 24 mmol/L (21-32) 07/20/21 20:27 Anion Gap 8 (3-11) 07/20/21 20:27 BUN 26 mg/dl (6-23) H 07/20/21 20:27 Creatinine 1.44 mg/dl (0.6-1.2) H 07/20/21 20:27 Est Cr Clr Drug Dosing 23.1 ml/min 07/20/21 20:27 Est GFR ( Amer) 39.4 ml/min 07/20/21 20:27 Est GFR (Non-Af Amer) 34.0 ml/min 07/20/21 20:27 BUN/Creatinine Ratio 18.1 (10-20) 07/20/21 20:27 Glucose 159 mg/dl (70-99(Fasting)) H 07/20/21 20:27 POC Glucose 62 mg/dl (70-99) L* 07/20/21 14:59 Calcium 7.4 mg/dl (8.5-10.1) L 07/20/21 20:27 Magnesium 1.6 mg/dl (1.7-2.4) L 07/20/21 16:39 Total Bilirubin 0.8 mg/dl (0.2-1.0) 07/20/21 16:39 AST 296 U/L (13-39) H 07/20/21 16:39 ALT 120 U/L (7-52) H 07/20/21 16:39 Alkaline Phosphatase 134 U/L (34-104) H 07/20/21 16:39 Troponin I 0.04 ng/ml (0-0.04) 07/20/21 16:39 Total Protein 5.3 gm/dl (6.0-8.3) L 07/20/21 16:39 Albumin 2.7 gm/dl (3.4-5.0) L 07/20/21 16:39 Globulin 2.6 gm/dl (2.5-4.0) 07/20/21 16:39 Albumin/Globulin Ratio 1.0 (0.9-2) 07/20/21 16:39 TSH 2.404 uIu/ml (0.300-4.500) 07/20/21 15:09 Random Cortisol 12.13 mcg/dl 07/20/21 22:47 Urine Color Yellow 07/20/21 21:03 Urine Appearance Cloudy (Clear) A 07/20/21 21:03 Urine pH 5.0 (4.5-7.5) 07/20/21 21:03 Ur Specific [place] 1.011 (1.000-1.030) 07/20/21 21:03 Urine Protein Trace (Negative) H 07/20/21 21:03 Urine Glucose (UA) Negative (Negative) 07/20/21 21:03 Urine Ketones Negative (Negative) 07/20/21 21:03 Urine Blood 3+ (Negative) H 07/20/21 21:03 Urine Nitrite Negative (Negative) 07/20/21 21:03 Urine Bilirubin Negative (Negative) 07/20/21 21:03 Urine Urobilinogen Negative (Negative) 07/20/21 21:03 Ur Leukocyte Esterase 2+ (Negative) H 07/20/21 21:03 Urine WBC (Auto) >30 /hpf (0-5) H 07/20/21 21:03 Urine RBC (Auto) 10-30 /hpf (0-4) H 07/20/21 21:03 U Hyaline Cast (Auto) 1-5 /lpf (0-5) 07/20/21 21:03 U Epithel Cells (Auto) 20-30 /lpf (0-5) H 07/20/21 21:03 Urine Bacteria (Auto) 1+ (Negative) H 07/20/21 21:03 Digoxin 0.4 ng/ml (0.8-2.0) L 07/20/21 15:09 SARS-CoV-2, RNA, NAAT NEGATIVE (NEGATIVE) 07/20/21 20:27 Impressions Chest X-Ray 07/20/21 15:19 XR chest 1V portable CLINICAL HISTORY: weakness COMPARISON STUDY: Chest radiograph and chest CT July 06, 2021. FINDINGS: Incidental note is made of median sternotomy wires. Cardiomegaly is noted without evidence for pulmonary edema. Trace left pleural effusion is noted. Mild left basilar opacity favors atelectasis. No pneumothorax. IMPRESSION: 1. Trace left pleural effusion with left basilar opacity that favors atelectasis. 2. Cardiomegaly without evidence for pulmonary edema. ACT 112: Negative or not required by law. Electronically signed by: Hammad Aranda M.D. 07/20/2021 3:50 PM Code Status & VTE Plan VTE Prophylaxis Plan VTE Prophylaxis will be ordered: Yes Supervising Physician Co-Signing Physician Notes Patient seen and examined, chart reviewed, case discussed with Dr. Salinas and I agree with the assessment and plan as above. In brief, patient is an 80yo female with multiple medical comorbidities presenting with reports of episodic hypoglycemia - BSG to 30's in AM as well as diffuse weakness. Patient does not take any medications for blood sugar control. Hypokalemia, hypomagnesemia as well. On exam she is afebrile, HD stable, nontoxic in appearance Skin - dressings in place on bilateral LE, decubitus not personally visualized HEENT - NC/AT, PERRL, MMM, Neck supple Heart - +S1/S2, regular, Lungs - CTA Abd - +BS, soft, NT/ND Ext - +edema Labs and images reviewed Assessment/plan -trend bsg. Check LFTs, Liver US and INR to assess liver function -?medication effects- BB contributing to hypoglycemia -Check random cortisol -Electrolyte repletion -Monitor urinary output -Remainder as above Resident Activity Tracking Resident Involvement: Resident Care Provided and Science Education Professor Coverage Note Care Provided: Adult Hospital Medicine
[2021-07-20 20:53] LABS: BUN Creatinine Ratio 18.1 (10-20); Calcium 7.4 mg/dl (8.5-10.1); Creatinine Clr Calc Pharmacy 23.1 ml/min; Est GFR (African American) 39.4 ml/min; Potassium 2.9 mmol/L (3.5-5.1)
[2021-07-20 21:17] LABS: Appearance Urine Cloudy (Clear); Bacteria Urine Automated 1+ (Negative); Bilirubin Urine Negative (Negative); Blood Urine 3+ (Negative); Color Urine Yellow; Epithelial Cell Urine Auto 20-30 /lpf (0-5); Glucose Urine UA Negative (Negative); Ketones Urine Negative (Negative); Leukocyte Esterase Urine 2+ (Negative); Nitrite Urine Negative (Negative); Protein Urine Trace (Negative); Specific Gravity Urine 1.011 (1.000-1.030); Urobilinogen Urine Negative (Negative); WBC Urine Automated >30 /hpf (0-5)
[2021-07-20 21:20] LABS: INR 1.6 (0.9-1.1)
[2021-07-20] MEDS ORDERED: GLUCOSE 40% GEL 15 GM TUBE PO PRN (22:25)
[2021-07-20] MEDS ORDERED: POLYETHYLENE (MIRALAX) 17 GM PACK PO PRN (22:25)
[2021-07-20] MEDS ORDERED: GLUCAGON FOR INJ 1 MG VIAL SQ PRN (22:25)
[2021-07-20] MEDS ORDERED: NITROGLYCERIN SL 0.4 MG/TAB TAB SL PRN (22:25)
[2021-07-20] MEDS ORDERED: CARBOHYDRATES FOR HYPOGLYCEMIA PO PRN (22:25)
[2021-07-20] MEDS ORDERED: DEXTROSE 50% 50 ML SYRINGE IV PRN (22:25)
[2021-07-20] MEDS ORDERED: EPINEPHrine INJ 1 MG/ML AMP IM PRN (23:04)
[2021-07-20] MEDS: DIGOXIN 0.125 MG TAB PO SCH (23:16)
[2021-07-20] MEDS: METOPROLOL SUCC 50MG EXT REL TAB PO SCH (23:17)
[2021-07-20] MEDS: RANOLAZINE 500 MG ER TAB PO SCH (23:18)
[2021-07-20] MEDS: GABAPENTIN 300 MG CAP PO SCH (23:19)
[2021-07-20] MEDS: RIVAROXABAN 15 MG TAB PO SCH (23:19)
[2021-07-20] MEDS: ATORVASTATIN 40 MG TAB PO SCH (23:20)
--- NOTE | 2021-07-21 04:01 | Billing Data ---
Date of Service July 20, 2021 Coding Level of Care Code 94562 Initial Inpt Care Lvl 3
[2021-07-21 06:26] LABS: Eosinophils # (auto) 0.12 K/uL (0-0.5); Eosinophils % (auto) 1.5 %; Hematocrit (blood only) 21.8 % (37-47); Immature Granulocytes # (auto) 0.01 K/uL (0.00-0.02); Immature Granulocytes % (auto) 0.1 %; Lymphocytes # (auto) 1.03 K/uL (1.2-3.4); Lymphocytes % (auto) 13.3 %; Mean Corpuscular Hemoglobin 32.4 pg (25-34); Mean Corpuscular Hgb Conc 32.1 g/dL (32-36); Mean Corpuscular Volume 100.9 fL (80-100); Mean Platelet Volume 9.6 fL (7.4-10.4); Monocytes # (auto) 0.92 K/uL (0.11-0.59); Monocytes % (auto) 11.9 %; Neutrophils # (auto) 5.67 K/uL (1.4-6.5); Neutrophils % (auto) 73.2 %; Platelet Count 253 K/uL (130-400); RDW Coefficient of Variation 15.6 % (11.5-14.5); Red Blood Count 2.16 M/uL (4.2-5.4); White Blood Count 7.75 K/uL (4.8-10.8)
[2021-07-21 06:42] LABS: Albumin Globulin Ratio 1.1 (0.9-2); Albumin Level 2.4 gm/dl (3.4-5.0); BUN Creatinine Ratio 19.6 (10-20); Bilirubin,Total 0.6 mg/dl (0.2-1.0); Calcium 7.3 mg/dl (8.5-10.1); Chol HDL Ratio 1.8 (0-5); Creatinine Clr Calc Pharmacy 24.1 ml/min; Est GFR (African American) 41.5 ml/min; Est GFR (Non-African American) 35.8 ml/min; Globulin 2.1 gm/dl (2.5-4.0); Magnesium 1.8 mg/dl (1.7-2.4); Phosphorus 2.6 mg/dl (2.5-4.9); Potassium 3.5 mmol/L (3.5-5.1); Total Protein 4.5 gm/dl (6.0-8.3)
[2021-07-21 06:44] LABS: RBC Morphology Unremarkable
--- NOTE | 2021-07-21 07:23 | Ultrasound Report ---
ABDOMINAL ULTRASOUND, RIGHT UPPER QUADRANT HISTORY: Abnormal LFTs. transaminitis. COMPARISON: Renal ultrasound 06/23/2021. Abdomen and pelvis CT 03/02/2021. FINDINGS: Pancreas: The pancreatic head and tail are obscured by overlying bowel gas. The remaining portions of the pancreas are within normal limits. Liver: The liver is normal in size. No hepatic masses identified. There appears to be pneumobilia wit hin the left hepatic lobe. No intrahepatic bile duct dilatation. The portal vein is patent. Gallbladder: The gallbladder is surgically absent. CBD: The common bile duct is mostly obscured. The visualized common bile duct appears to measure prox imal a 7 mm in diameter. Right kidney: No hydronephrosis. Moderate cortical thinning with increased cortical echogenicity sugg estive of medical renal disease. Miscellaneous: There appears to be a small right pleural effusion. IMPRESSION: 1. Cholecystectomy. 2. Pneumobilia identified within the left hepatic lobe. 3. Moderate right cortical renal thinning with increased cortical echogenicity suggestive of medical renal disease. 4. Suggestion of a small right pleural effusion. ACT 112: Negative or not required by law. Electronically signed by: Richard Fletcher M.D. 07/21/2021 7:21 AM
[2021-07-21 07:40] LABS: Estimated Average Glucose 97 mg/dl
[2021-07-21] MEDS: CLOPIDOGREL BISULFATE 75 MG TAB PO SCH (08:26)
[2021-07-21] MEDS: ISOSORBIDE MONO EXTENDED REL 60 MG TABCR PO SCH (08:26)
[2021-07-21] MEDS: prednisoLONE acetate 1% OP SUSP 5 ML BTL OP SCH (08:26)
[2021-07-21] MEDS: METOPROLOL SUCC 50MG EXT REL TAB PO SCH ×2 (08:26→21:10)
[2021-07-21] MEDS: RANOLAZINE 500 MG ER TAB PO SCH ×2 (08:27→21:11)
[2021-07-21] MEDS: cefTRIAXone SODIUM 1,000 MG in DEXTROSE 5% 50 ML IV SCH (11:57)
[2021-07-21 12:29] LABS: C Reactive Protein 1.05 mg/dl (0-0.5)
[2021-07-21 12:35] LABS: Ferritin 546.2 ng/ml (8-388)
[2021-07-21] MEDS ORDERED: FOLIC ACID 1 MG in SYRINGE 9.8 ML IV STA (13:54)
[2021-07-21] MEDS ORDERED: SODIUM CHLORIDE 0.9% 250 ML IV PRN (14:39)
[2021-07-21] MEDS ORDERED: diphenhydrAMINE Capsule 25 MG CAP PO ONE (14:51)
[2021-07-21] MEDS ORDERED: ACETAMINOPHEN 325 MG TAB PO ONE (14:53)
[2021-07-21] MEDS ORDERED: diphenhydrAMINE HCl 12.5 MG/5 ML UDC PO ONE (16:00)
[2021-07-21] MEDS ORDERED: Nursing to Pharmacy Communication SCH (16:00)
[2021-07-21] MEDS: DEXTROSE 5% 1,000 ML IV SCH (16:30)
[2021-07-21] MEDS: RIVAROXABAN 15 MG TAB PO SCH (17:09)
[2021-07-21] MEDS: CALCITRIOL 0.25 MCG CAPSULE PO SCH (17:09)
--- NOTE | 2021-07-21 20:43 | Hospitalist Progress Note ---
Date of Service July 21, 2021 Assessment & Plan (1) Hypoglycemia: Plan: suspect combination of very poor oral intake, poor hepatic gluconeogenesis, and poor glycogen stores. cortisol level 12 - would have expected it to be higher - but technically normal. could consider cosyntropin stim test to be complete. stress of UTI, other issues could be contributing. still having low-normal BSGs - start D5W at 20cc/hr to maintain euglycemia. (2) Liver mass, right lobe: Plan: she had a bx in 2020 showing focal fibrosis? however, given the LFTs being high, I am concerned about this mass in light of her failure to thrive, etc. will obtain MRI liver w/ contrast to reassess this region. Check AFP level am. (3) Abnormal LFTs: Plan: HOLD STATIN. MRI liver as above. repeat LFTs am. (4) Folate deficiency: Plan: start folic acid 1mg IV daily. (5) Copper deficiency: Plan: noted. prior h/o confirmed deficiency - had been on replacement. may be worth repeating a level given her ongoing macrocytosis. (6) Macrocytic anemia: Plan: folate def. copper def. both likely contributing. Hb today 7 - will transfuse 1 unit PRBCs. I spoke with blood bank that she should NOT receive A+ blood given her prior, suspected Tx reaction. cbc am. (7) CAD (coronary artery disease): Plan: noted hold lipitor due to high LFTs cont plavix cont metoprolol cont ranexa cont imdur some of her chronic STEPHENS/chest tightness could be from CAD some of it could be her anemia in setting of CAD (8) High serum ferritin: Plan: noted has had w/u for this by heme/onc in the past no hemochromatosis based on records (9) Paroxysmal atrial flutter: Plan: and a.fib cont BB cont xarelto (10) Generalized weakness: Plan: likely multifactorial - anemia, UTI, and concern for malignancy Tx 1 unit blood Rx UTI w/u for malignancy (11) Multiple pulmonary nodules determined by computed tomography of lung: Plan: LANDON nodule has been very suspicious for cancer following with pulmonary last PET-CT noted (12) Severe protein-calorie malnutrition: Plan: prior gastric bypass status prior Whipple malignancy? all likely contributing also, only eating 1 meal/day at home (13) DVT prophylaxis: Plan: xarelto (14) Temporal lobe epilepsy: Plan: 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 (15) Chronic kidney disease, stage IV (severe): Plan: baseline CrCl 15-30 bmp in am for stability Plan: will need PT/OT Admission and Anticipated Discharge Date Admission Date: July 20, 2021 Subjective patient reports that following her previous hospital admission she really never got back to her physical / functional baseline of late she has been very, very weak on a general basis she admits to very poor appetite - blames it on the inability to walk to the kitchen to prepare herself food - and is typically only eating 1x/day the 1 meal she does eat it is often a TV/microwave meal (lean [employer]isine, etc) she has had frequent low blood sugars of late with respect to her anemia - she was given 1 unit of PRBCs - A+ blood - during the prior admission developed dyspnea and a suspected transfusion rxn records state that pathology has recommended against any use of A+ blood in the future she denies abdominal pain, nausea, or emesis despite her weakness denies dyspnea except with heavy exertion or walking up steps occasional chest tightness at peak walking but this is infrequent Review of Systems Review of Systems: gen - denies chronic fevers, sweats pulm - no cough GI - chronic diarrhea going back "years" CV - no orthopnea Physical Exam Physical Exam: gen - very thin, cachectic appearing, NAD skin - pallor mouth - MMM; no thrush neck - no JVD heart - RR, s1 s2, 1/6 KANWAL LSB, irregular lungs - decreased BS right base, otherwise CTA b/l abd - soft, NT, ND, BS+, no HSM ext - mild edema, pulses 2+ b/l psych - a/o x 3 Results & Data Results & Data ([facility]) Vital Signs (Past 12 Hours) Vital Signs Temp Pulse Pulse Resp BP BP Pulse Ox 07/21/21 20:38 36.5 C 60 16 105/59 L 98 07/21/21 19:38 36.3 C L 67 16 92/47 L 07/21/21 18:38 36.7 C 69 16 111/68 07/21/21 17:38 36.6 C 62 16 113/68 07/21/21 17:08 36.9 C 65 16 93/53 L 07/21/21 16:53 36.8 C 62 18 108/67 07/21/21 16:37 36.6 C 68 18 97/59 L 07/21/21 15:25 36.4 C L 77 16 105/62 95 Laboratory Results labs reviewed Hb 7 chronic anemia, baseline Hb 8-9 MCV ~100 BMP wnl AST/ALT/alk phos all elevated t bili wnl folate 3 Fe studies - now c/w Fe deficiency PG Care Time/CCT Total # of Minutes Spent Total Time Spent with Patient: Total time spent is greater than 50% in coordination of care (as documented) at patient's floor/unit and/or counseling patient: Coding Level of Care Code 34198 Subseq Hosp Care Lvl 3 Diagnoses Hypoglycemia E16.2 Liver mass, right lobe R16.0 Abnormal LFTs R79.89 Folate deficiency E53.8 Copper deficiency E61.0 Macrocytic anemia D53.9 CAD (coronary artery disease) I25.10 Coronary Disease-Associated Artery/Lesion type: [place] artery [place] vs. transplanted heart: [place] heart Associated angina: without angina High serum ferritin R79.89 Paroxysmal atrial flutter I48.92 Generalized weakness R53.1 Multiple pulmonary nodules determined by computed tomography of lung R91.8 Severe protein-calorie malnutrition E43 DVT prophylaxis Z29.9 Temporal lobe epilepsy G40.109 Chronic kidney disease, stage IV (severe) N18.4 (1) CAD (coronary artery disease) Coronary Disease-Associated Artery/Lesion type: [place] artery [place] vs. transplanted heart: [place] heart Associated angina: without angina Qualified Code(s): I25.10 - Atherosclerotic heart disease of [place] coronary artery without angina pectoris
[2021-07-21] MEDS: ATORVASTATIN 40 MG TAB PO SCH (21:11)
[2021-07-21] MEDS: GABAPENTIN 300 MG CAP PO SCH (22:59)
[2021-07-22] MEDS ORDERED: GADOXETATE DISODIUM IV ONE (00:25)
[2021-07-22 06:45] LABS: Hematocrit (blood only) 28.9 % (37-47); Hemoglobin 9.3 g/dL (12.0-16.0); Mean Corpuscular Hemoglobin 31.6 pg (25-34); Mean Corpuscular Hgb Conc 32.2 g/dL (32-36); Mean Corpuscular Volume 98.3 fL (80-100); Platelet Count 225 K/uL (130-400); RDW Coefficient of Variation 16.2 % (11.5-14.5); RDW Standard Deviation 58.6 fL (36.4-46.3); Red Blood Count 2.94 M/uL (4.2-5.4); White Blood Count 7.47 K/uL (4.8-10.8)
[2021-07-22 07:09] LABS: Albumin Level 2.3 gm/dl (3.4-5.0); BUN Creatinine Ratio 19.1 (10-20); Bilirubin,Total 0.5 mg/dl (0.2-1.0); Calcium 7.3 mg/dl (8.5-10.1); Creatinine Clr Calc Pharmacy 23.6 ml/min; Est GFR (African American) 40.4 ml/min; Est GFR (Non-African American) 34.8 ml/min; Globulin 2.2 gm/dl (2.5-4.0); Potassium 4.1 mmol/L (3.5-5.1); Total Protein 4.5 gm/dl (6.0-8.3)
[2021-07-22] MEDS: prednisoLONE acetate 1% OP SUSP 5 ML BTL OP SCH (08:23)
[2021-07-22] MEDS: RANOLAZINE 500 MG ER TAB PO SCH ×2 (08:23→19:58)
[2021-07-22] MEDS: METOPROLOL SUCC 50MG EXT REL TAB PO SCH ×2 (08:23→19:58)
[2021-07-22] MEDS: ISOSORBIDE MONO EXTENDED REL 60 MG TABCR PO SCH (08:23)
[2021-07-22] MEDS: cefTRIAXone SODIUM 1,000 MG in DEXTROSE 5% 50 ML IV SCH (08:24)
[2021-07-22] MEDS: FOLIC ACID 1 MG in SYRINGE 9.8 ML IV SCH (08:24)
[2021-07-22] MEDS: CLOPIDOGREL BISULFATE 75 MG TAB PO SCH (08:24)
--- NOTE | 2021-07-22 09:43 | Magnetic Resonance Report ---
MR abdomen wo/w con HISTORY: R hepatic lobe mass, abnl LFTs TECHNIQUE: Multiplanar multisequence MRI of the abdomen was performed both before and after the intra venous administration of 10 cc of Eovist contrast to evaluate the liver. COMPARISON STUDY: Abdomen and pelvis CT 06/21/2021. Abdominal ultrasound 07/20/2021. Abdominal MRI 10/27. FINDINGS: Small bilateral pleural effusions. The heart remains enlarged. There are poststernotomy earle nges. Prior cholecystectomy. The spleen is unremarkable. No hydronephrosis. Bilateral perinephric jason ma is noted. The visualized loops of bowel show no wall thickening or obstruction. There is moderate body wall edema. Small to moderate hiatus hernia is present. Suture material within the anterior abdo whtiney wall from prior surgery. No intra or extrahepatic bile duct dilatation. The main portal vein is patent. The hepatic lesion described in the prior MRIs is no longer visualized. No new hepatic lesio ns identified. Postoperative changes consistent with prior Whipple procedure. The residual main pancr eatic duct remains mildly dilated measuring up to 5 mm. A few scattered cystic lesions within the turcios creatic tail are again noted. Dominant lesion measures 1.5 cm. 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 IMPRESSION: 1. No hepatic lesions identified. 2. Small bilateral pleural effusions and body wall edema. 3. Small to moderate hiatus hernia, unchanged. 4. Prior Whipple procedure and cholecystectomy. 5. 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 ACT 112: Negative or not required by law. Electronically signed by: Richard Fletcher M.D. 07/22/2021 9:42 AM
[2021-07-22] MEDS: DEXTROSE 5% 1,000 ML IV SCH (13:07)
[2021-07-22] MEDS: FLUCONAZOLE 100 MG TAB PO SCH (13:07)
[2021-07-22] MEDS ORDERED: FAMOTIDINE 20 MG in SYRINGE 3 ML IV STA (17:21)
[2021-07-22] MEDS ORDERED: SUCRALFATE 1 GM/10 ML UDC PO ONE (17:22)
[2021-07-22] MEDS: DIGOXIN 0.125 MG TAB PO SCH (17:35)
[2021-07-22] MEDS: RIVAROXABAN 15 MG TAB PO SCH (17:47)
[2021-07-22] MEDS: GABAPENTIN 300 MG CAP PO SCH (19:58)
--- NOTE | 2021-07-22 20:32 | Hospitalist Progress Note ---
Date of Service July 22, 2021 Assessment & Plan (1) Elevated creatine kinase level: Plan: Pt has had falls at home - could be from resolving rhabdomyolysis. She has had significant muscle weakness - this could be myositis or myopathy. HOLD lipitor. Check sed rate/crp in am. Recheck CPK am for trend. (2) Hypoglycemia: Plan: suspect combination of very poor oral intake, poor hepatic gluconeogenesis, and poor glycogen stores. cortisol level 12 - would have expected it to be higher - but technically normal. stress of UTI, other issues could be contributing. still with borderline low BSGs despite D5W at 20cc/hr to maintain euglycemia. plan - cosyntropin stim test at 8am tomorrow to r/o adrenal insufficiency NPO starting at 10pm tonight (3) Liver mass, right lobe: Plan: she had a bx in 2020 showing focal fibrosis? however, given the LFTs being high, I obtained repeat MRI abdomen/liver this did NOT show any remaining mass? AFP pending (4) Abnormal LFTs: Plan: HOLD STATIN. Liver anatomically normal on MRI. No biliary tract disease seen. repeat LFTs am. (5) Folate deficiency: Plan: cont folic acid 1mg IV daily. plan 30 days of Rx whether IV or PO. (6) Copper deficiency: Plan: noted. prior h/o confirmed deficiency - had been on replacement. repeat a level given her ongoing macrocytosis to ensure she does not need replacement again. (7) Macrocytic anemia: Plan: folate def. copper def. both likely contributing. s/p 1 unit PRBCs yesterday. improved H/H. follow H/H every 2-3 days for stability. (8) CAD (coronary artery disease): Plan: noted hold lipitor due to high LFTs cont plavix cont metoprolol cont ranexa cont imdur some of her chronic STEPHENS/chest tightness could be from CAD some of it could be her anemia in setting of CAD (9) High serum ferritin: Plan: noted has had w/u for this by heme/onc in the past no hemochromatosis based on records (10) Paroxysmal atrial flutter: Plan: and paroxysmal a.fib cont BB cont xarelto (11) Generalized weakness: Plan: likely multifactorial - anemia, UTI, ?concern for malignancy, nutritional deficiencies, ?myositis or myopathy, liver issue (given abnl LFTs)? s/p Tx of 1 unit blood Rx UTI w/u for malignancy cosyntropin stim test repeat CPK, hold lipitor (12) Multiple pulmonary nodules determined by computed tomography of lung: Plan: LANDON nodule has been very suspicious for cancer following with pulmonary last PET-CT noted may need w/u for this very soon (biopsy, etc) if nothing else is found that can account for her failure to thrive (13) Severe protein-calorie malnutrition: Plan: prior gastric bypass status prior Whipple malignancy? 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 (16) Chronic kidney disease, stage IV (severe): Plan: baseline CrCl 15-30 bmps have been stable Plan: will need PT/OT pt's son extensively updated by phone this evening Admission and Anticipated Discharge Date Admission Date: July 20, 2021 Subjective pt feels no different s/p 1 unit PRBCs today still "weak" appetite fair at best no new complaints we had lengthy discussion about her MRI findings, UTI, etc she continues with borderline low sugars despite dextrose infusion at 20cc/hr continues with muscle weakness and with dizziness at times (when moving) Review of Systems 2 Review of Systems: gen - no fever cv - no cp pulm - no cough GI - no abd pain today, although had dyspepsia/upset later in the day today Physical Exam Physical Exam: gen - very thin, cachectic appearing, NAD mouth - MMM; no thrush neck - no JVD heart - RR, s1 s2, 1/6 KANWAL LSB, irregular lungs - decreased BS right base, otherwise CTA b/l abd - soft, NT, ND, BS+, no HSM ext - mild edema - about trace-1+ b/l, pulses 2+ b/l psych - a/o x 3 skin - ecchymoses and old, scabbed ulcerations on shins; pallor - improved Results & Data Results & Data ([facility]) Vital Signs (Past 12 Hours) Vital Signs Temp Pulse Resp BP Pulse Ox 07/22/21 19:56 62 116/74 98 07/22/21 16:28 36.4 C L 56 L 14 106/70 99 Laboratory Results Laboratory Results - last 24 hr 07/21/21 07/21/21 07/22/21 14:50 20:45 06:22 WBC 7.47 RBC 2.94 L Hgb 9.3 L Hct 28.9 L MCV 98.3 MCH 31.6 MCHC 32.2 RDW Std Deviation 58.6 H RDW Coeff of Argenis 16.2 H Plt Count 225 MPV 10.0 Sodium Potassium Chloride Carbon Dioxide Anion Gap BUN Creatinine Est Cr Clr Drug Dosing Est GFR ( Amer) Est GFR (Non-Af Amer) BUN/Creatinine Ratio Glucose POC Glucose 202 H Calcium Total Bilirubin AST ALT Alkaline Phosphatase Total Creatine Kinase Total Protein Albumin Globulin Albumin/Globulin Ratio Tumor Marker AFP Crossmatch See Detail 07/22/21 07/22/21 07/22/21 06:22 06:22 06:22 WBC RBC Hgb Hct MCV MCH MCHC RDW Std Deviation RDW Coeff of [place]gen[place] Plt Count MPV Sodium 138 Potassium 4.1 Chloride 109 H Carbon Dioxide 23 Anion Gap 6 BUN 27 H Creatinine 1.41 H Est Cr Clr Drug Dosing 23.6 Est GFR ( Amer) 40.4 Est GFR (Non-Af Amer) 34.8 BUN/Creatinine Ratio 19.1 Glucose 83 POC Glucose Calcium 7.3 L Total Bilirubin 0.5 AST 200 H ALT 109 H Alkaline Phosphatase 118 H Total Creatine Kinase 1542 H Total Protein 4.5 L Albumin 2.3 L Globulin 2.2 L Albumin/Globulin Ratio 1.0 Tumor Marker AFP Pending Crossmatch 07/22/21 07/22/21 07/22/21 08:19 12:14 17:23 WBC RBC Hgb Hct MCV MCH MCHC RDW Std Deviation RDW Coeff of Argenis Plt Count MPV Sodium Potassium Chloride Carbon Dioxide Anion Gap BUN Creatinine Est Cr Clr Drug Dosing Est GFR ( Amer) Est GFR (Non-Af Amer) BUN/Creatinine Ratio Glucose POC Glucose 83 110 H 94 Calcium Total Bilirubin AST ALT Alkaline Phosphatase Total Creatine Kinase Total Protein Albumin Globulin Albumin/Globulin Ratio Tumor Marker AFP Crossmatch PG Care Time/CCT Total # of Minutes Spent Total Time Spent with Patient: Total time spent is greater than 50% in coordination of care (as documented) at patient's floor/unit and/or counseling patient: Coding Level of Care Code 06319 Subseq Hosp Care Lvl 3 Diagnoses Hypoglycemia E16.2 Liver mass, right lobe R16.0 Abnormal LFTs R79.89 Folate deficiency E53.8 Copper deficiency E61.0 Macrocytic anemia D53.9 CAD (coronary artery disease) I25.10 Associated angina: without angina Coronary Disease-Associated Artery/Lesion type: [place] artery [place] vs. transplanted heart: [place] heart High serum ferritin R79.89 Paroxysmal atrial flutter I48.92 Generalized weakness R53.1 Multiple pulmonary nodules determined by computed tomography of lung R91.8 Severe protein-calorie malnutrition E43 DVT prophylaxis Z29.9 Temporal lobe epilepsy G40.109 Chronic kidney disease, stage IV (severe) N18.4 Elevated creatine kinase level R74.8 (1) CAD (coronary artery disease) Associated angina: without angina Coronary Disease-Associated Artery/Lesion type: [place] artery [place] vs. transplanted heart: [place] heart Qualified Co de(s): I25.10 - Atherosclerotic heart disease of [place] coronary artery without angina pectoris
[2021-07-23] MEDS ORDERED: COSYNTROPIN 1 MCG in SYRINGE 0 ML IV ONE (08:00)
[2021-07-23] MEDS: FOLIC ACID 1 MG in SYRINGE 9.8 ML IV SCH (08:20)
[2021-07-23] MEDS: cefTRIAXone SODIUM 1,000 MG in DEXTROSE 5% 50 ML IV SCH (08:34)
[2021-07-23] MEDS: prednisoLONE acetate 1% OP SUSP 5 ML BTL OP SCH (08:35)
[2021-07-23] MEDS: FLUCONAZOLE 100 MG TAB PO SCH (08:36)
[2021-07-23] MEDS: METOPROLOL SUCC 50MG EXT REL TAB PO SCH ×2 (08:36→19:43)
[2021-07-23] MEDS: RANOLAZINE 500 MG ER TAB PO SCH ×2 (08:37→19:42)
[2021-07-23] MEDS: ISOSORBIDE MONO EXTENDED REL 60 MG TABCR PO SCH (08:37)
[2021-07-23] MEDS: CLOPIDOGREL BISULFATE 75 MG TAB PO SCH (08:37)
[2021-07-23 08:53] LABS: Albumin Level 2.5 gm/dl (3.4-5.0); Bilirubin,Total 0.6 mg/dl (0.2-1.0); C Reactive Protein 0.53 mg/dl (0-0.5); Calcium 7.8 mg/dl (8.5-10.1); Creatinine Clr Calc Pharmacy 24.1 ml/min; Est GFR (African American) 41.5 ml/min; Est GFR (Non-African American) 35.8 ml/min; Globulin 2.5 gm/dl (2.5-4.0); Potassium 4.4 mmol/L (3.5-5.1)
[2021-07-23] MEDS ORDERED: predniSONE 20 MG TAB PO STA (11:04)
[2021-07-23] MEDS: DEXTROSE 5% 1,000 ML IV SCH (14:42)
[2021-07-23] MEDS ORDERED: VANCOMYCIN HCL 1,000 MG in SODIUM CHLORIDE 0.9% 250 ML IV STA (15:12)
[2021-07-23] MEDS ORDERED: VANCOMYCIN CONSULT ACTIVE PRN (15:12)
--- NOTE | 2021-07-23 15:25 | Pharmacy Report ---
Pharmacy Vanc AUC Short Note - Date of Service July 23, 2021 - Assessment & Plan Assessment 80 year old F receiving Vancomycin for treatment of a UTI * Was on Ceftriaxone previously. Fluconazole PO added 07/22 for Jennifer albicans in urine. * Urine culture finalized with E. faecium today which is sensitive to Daptomycin and Vancomycin but not Ampicillin. * Given elevated CPK and resolving rhabdomyolsis want to avoid Daptomycin. Given prolonged QTc interval want to avoid Linezolid. Plan Vancomycin * AUC/ROXANNE is the preferred PK/PD target for vancomycin * AUC guided dosing is effective and associated with decreased risk of nephrotoxicity compared to traditional trough targets * Loading dose: 1000 mg IV x 1 * Maintenance dose: 750 mg IV every 24 hours * Dose is predicted to achieve target AUC/ROXANNE of 400-600 mg/L.hr * Trough level ordered for 07/26/21 Pharmacy will continue to follow and will adjust dose/frequency as necessary. Thank you.
[2021-07-23] MEDS ORDERED: VANCOMYCIN HCL 750 MG in SODIUM CHLORIDE 0.9% 250 ML IV SCH (15:30)
[2021-07-23] MEDS: CALCITRIOL 0.25 MCG CAPSULE PO SCH (17:02)
[2021-07-23] MEDS: RIVAROXABAN 15 MG TAB PO SCH (17:02)
[2021-07-23] MEDS: predniSONE 20 MG TAB PO SCH (18:36)
[2021-07-23] MEDS: GABAPENTIN 300 MG CAP PO SCH (19:42)
--- NOTE | 2021-07-23 20:07 | Hospitalist Progress Note ---
Date of Service July 23, 2021 Assessment & Plan (1) Adrenal insufficiency: Plan: Cosyntropin stim test - failed such. Baseline cortisol was 15, but she had NO rise in cortisol level with 1mcg cosyntropin x 1. This suggests adrenal insufficiency. Adrenal insufficiency would certainly explain her low sugars, dizziness, fatigue, and perhaps even some of her chronic GI complaints. Due to stress of multiple concurrent illnesses will start with higher than typic al replacement doses -- start prednisone 20mg BID. Gradually wean to replacement doses (hydrocortisone 15mg am, hydrocortisone 5mg pm -- or prednisone equivalents). Would check an ACTH level. (2) Myopathy: Plan: She has a CPK level of 1500 to about 2000. She did have a fall but it was 2-3 weeks ago thus rhabdomyolysis from that fall - this far out - is unlikely. She has significant proximal muscle weakness on examination. She has had severe weakness at home - essentially cannot stand or walk. Lipitor placed on hold. ESR/Crp not elevated - myositis unlikely. To determine if this was statin induced will send HMG-CoA antibody tomorrow am. Will ask neurology to consult for their opinion. Steroids for #1 may help her myopathy. Recheck CPK am. (3) Elevated creatine kinase level: Plan: see #2 above (4) UTI (urinary tract infection): Plan: 2nd to enterococcus - PCN/amp resistant c albicans change rocephin to IV vanco cont dilfucan for c albicans plan 7 days of Rx in total having urinary retention - likely from UTI - saleem placed (5) Hypoglycemia: Plan: Suspect combination of very poor oral intake, poor hepatic gluconeogenesis, poor glycogen stores, and now adrenal insufficiency to blame. Should improve/resolve with steroid replacement. Cut Dextrose drip from 20cc/hr to 10cc/hr. Then likely OFF tomorrow am if sugars are stable. (6) Liver mass, right lobe: Plan: she had a bx in 2020 showing focal fibrosis? however, given the LFTs being high, I obtained repeat MRI abdomen/liver this did NOT show any remaining mass? AFP pending (7) Abnormal LFTs: Plan: HOLD STATIN. Liver anatomically normal on MRI. No biliary tract disease seen. repeat LFTs today still elevated. 2nd to statin? 2nd to intrinsic liver disease? viral? other? continue to trend them; obtain additional w/u as needed. (8) Folate deficiency: Plan: cont folic acid 1mg IV daily. plan 30 days of Rx whether IV or PO. 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 repeat a level given her ongoing macrocytosis to ensure she does not need replacement again. (10) Macrocytic anemia: Plan: folate def. copper def. both likely contributing. s/p 1 unit PRBCs earlier this admission. improved H/H. follow H/H every 2-3 days for stability. (11) CAD (coronary artery disease): Plan: noted hold lipitor due to high LFTs cont plavix cont metoprolol cont ranexa cont imdur some of her chronic STEPHENS/chest tightness could be from CAD some of it could be her anemia in setting of CAD (12) High serum ferritin: Plan: noted has had w/u for this by heme/onc in the past no hemochromatosis based on records (13) Paroxysmal atrial flutter: Plan: and paroxysmal a.fib cont BB cont xarelto (14) Generalized weakness: Plan: likely multifactorial - anemia, UTI, ?concern for malignancy, nutritional deficiencies, concern for myopathy, adrenal insufficiency as above. 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 (19) Chronic kidney disease, stage IV (severe): Plan: baseline CrCl 15-30 bmps have been stable Plan: PT/OT likely to need rehab pt's son extensively updated by phone yesterday evening Admission and Anticipated Discharge Date Admission Date: July 20, 2021 Subjective patient feels similar to yesterday still very, very weak - cannot stand very readily, difficult to even get to the commode difficult to raise her arms as well - although she does have chronic L shoulder issues, too appetite fair denies myalgias still with low-normal BSGs at times despite dextrose infusion chronic diarrhea remains no abd pain or chest pain Review of Systems Review of Systems: gen - weak, fatigue, appetite fair cv - no chest pains, no orthopnea pulm - no dyspnea GI - no nausea or emesis neuro - mentions that when she walks her thighs have a "vibration" feeling in them Physical Exam Physical Exam: gen - very thin, cachectic appearing, NAD mouth - MMM; no thrush neck - no JVD heart - RR, s1 s2, 1/6 KANWAL LSB, irregular lungs - decreased BS right base, otherwise CTA b/l abd - soft, NT, ND, BS+, no HSM ext - mild edema - about trace-1+ b/l, pulses 2+ b/l psych - a/o x 3 skin - ecchymoses and old, scabbed ulcerations on shins; Left shoulder ulceration with scab/healing neuro - significant proximal muscle weakness of hips (flexion is 3/5 at best); distal strength of feet/ankles - dorsiflexion/plantarflexion - 5/5; handgrips 5/5; proximal muscle weakness of b/l shoulder region although L shoulder has significant rotator cuff issues (muscle wasting noted of the leandra-shoulder muscles) Results & Data Results & Data ([facility]) Vital Signs (Past 12 Hours) Vital Signs Temp Pulse Resp BP Pulse Ox 07/23/21 19:41 57 L 129/72 07/23/21 16:22 36.3 C L 57 L 14 122/71 100 07/23/21 08:26 36.4 C L 62 14 128/75 96 Laboratory Results Laboratory Results - last 24 hr 07/22/21 07/22/21 07/23/21 06:22 20:36 00:11 ESR Sodium Potassium Chloride Carbon Dioxide Anion Gap BUN Creatinine Est Cr Clr Drug Dosing Est GFR ( Amer) Est GFR (Non-Af Amer) BUN/Creatinine Ratio Glucose POC Glucose 105 H 93 Calcium Total Bilirubin AST ALT Alkaline Phosphatase Total Creatine Kinase C-Reactive Protein Total Protein Albumin Globulin Albumin/Globulin Ratio Tumor Marker AFP 1.6 Cortisol Response 07/23/21 07/23/21 07/23/21 06:04 08:07 08:07 ESR 27 Sodium Potassium Chloride Carbon Dioxide Anion Gap BUN Creatinine Est Cr Clr Drug Dosing Est GFR ( Amer) Est GFR (Non-Af Amer) BUN/Creatinine Ratio Glucose POC Glucose 83 Calcium Total Bilirubin AST ALT Alkaline Phosphatase Total Creatine Kinase C-Reactive Protein Total Protein Albumin Globulin Albumin/Globulin Ratio Tumor Marker AFP Cortisol Response 07/23/21 07/23/21 07/23/21 08:07 12:19 17:04 ESR Sodium 134 L Potassium 4.4 Chloride 106 Carbon Dioxide 20 L Anion Gap 8 BUN 29 H Creatinine 1.38 H Est Cr Clr Drug Dosing 24.1 Est GFR ( Amer) 41.5 Est GFR (Non-Af Amer) 35.8 BUN/Creatinine Ratio 21.0 H Glucose 86 POC Glucose 147 H 103 H Calcium 7.8 L Total Bilirubin 0.6 AST 210 H ALT 129 H Alkaline Phosphatase 144 H Total Creatine Kinase 1932 H C-Reactive Protein 0.53 H Total Protein 5.0 L Albumin 2.5 L Globulin 2.5 Albumin/Globulin Ratio 1.0 Tumor Marker AFP Cortisol Response Diagnostic Findings Urine cx - enterococcus, amp resistant; c albicans PG Care Time/CCT Total # of Minutes Spent Total Time Spent with Patient: Total time spent is greater than 50% in coordination of care (as documented) at patient's floor/unit and/or counseling patient: Coding Level of Care Code 59224 Subseq Hosp Care Lvl 3 Diagnoses Elevated creatine kinase level R74.8 Hypoglycemia E16.2 Liver mass, right lobe R16.0 Abnormal LFTs R79.89 Folate deficiency E53.8 Copper deficiency E61.0 Macrocytic anemia D53.9 CAD (coronary artery disease) I25.10 Associated angina: without angina Coronary Disease-Associated Artery/Lesion type: [place] artery [place] vs. transplanted heart: [place] heart High serum ferritin R79.89 Paroxysmal atrial flutter I48.92 Generalized weakness R53.1 Multiple pulmonary nodules determined by computed tomography of lung R91.8 Severe protein-calorie malnutrition E43 DVT prophylaxis Z29.9 Temporal lobe epilepsy G40.109 Chronic kidney disease, stage IV (severe) N18.4 Adrenal insufficiency E27.40 Myopathy G72.9 UTI (urinary tract infection) N39.0 (1) CAD (coronary artery disease) Associated angina: without angina Coronary Disease-Associated Artery/Lesion type: [place] artery [place] vs. transplanted heart: [place] heart Qualified Code(s): I25.10 - Atherosclerotic heart disease of [place] coronary artery without angina pectoris
--- NOTE | 2021-07-24 09:17 | Hospitalist Progress Note ---
Date of Service July 24, 2021 Assessment & Plan (1) Myopathy: Plan: SIGNIFICANT, progressive. Proximal weakness as well as glove/stocking paresthesias. She has a CPK level of 1500 to about 2000. She did have a fall but it was 2-3 weeks ago thus rhabdomyolysis from that fall - this far out - is unlikely. She has significant proximal muscle weakness on examination. She has had severe weakness at home - essentially cannot stand or walk. Lipitor placed on hold (has been on since prior cath) -- since discontinued and checking HMG-CoA antibody, pending ESR/Crp not elevated - myositis unlikely. CPK remains elevated --> trend. --> Checking urine myoglobin Neuro consulted --> Checking MRI brain w/wo as well as cervical spine w/ wo to evaluate for normal pressure hydrocephalus and significant cervical spinal stenosis which could give a myelopathy. Of note, did mention prior pt hx of elevated trypase per allergy/immunology note and suggested underlying mast cell disorder? Wonder if possibly related --> Checking B12 (already ordered this morning), Lyme, General surgery consulted for muscle biopsy -- to be performed on Monday LFTs previously normal, no new meds other than Levaquin for UTI? --> Also will hold any further fluconazole as given for rasheed in urine (was on ceftriaxone for UTI, since change to complete with Vanco) If from lipitor, holding/discontinuing may not help and she may need something like IVIG/rituximab, but will await above and monitor for now Continue PT/OT (2) Adrenal insufficiency: Plan: Cosyntropin stim test - failed such. Baseline cortisol was 15, but she had NO rise in cortisol level with 1mcg cosyntropin x 1. This suggests adrenal insufficiency. Adrenal insufficiency would certainly explain her low sugars, dizziness, fatigue, and perhaps even some of her chronic GI complaints. Due to stress of multiple concurrent illnesses will start with higher than typical replacement doses -- start prednisone 20mg BID -- continue this for now Gradually wean to replacement doses (hydrocortisone 15mg am, hydrocortisone 5mg pm -- or prednisone equivalents). --> consider decreasing tomorrow but per discussion with neuro would continue higher doses steroids for now to see if helps with weakness Would check an ACTH level -- pending (3) Elevated creatine kinase level: Plan: medication vs autoimmune process? See above statin discontinued no fall/trauma reported continue to trend (4) UTI (urinary tract infection): Plan: 2nd to enterococcus - PCN/amp resistant c albicans change rocephin to IV vanco cont dilfucan for c albicans --> DISCONTINUED GIVEN ELEVATED LFTs plan 7 days of Rx in total having urinary retention - likely from UTI - saleem placed (5) Hypoglycemia: Plan: Suspect combination of very poor oral intake, poor hepatic gluconeogenesis, poor glycogen stores, and now adrenal insufficiency to blame. Should improve/resolve with steroid replacement. Cut Dextrose drip from 20cc/hr to 10cc/hr. Then likely OFF tomorrow am if sugars are stable. --> Discontinued D5 for today, monitor BSGs (6) Liver mass, right lobe: Plan: she had a bx in 2020 showing focal fibrosis? however, given the LFTs being high, I obtained repeat MRI abdomen/liver this did NOT show any remaining mass? AFP pending (7) Abnormal LFTs: Plan: HOLD STATIN -- discontinued for now, see above Liver anatomically normal on MRI. No biliary tract disease seen. repeat LFTs today still elevated. 2nd to intrinsic liver disease? viral? other? continue to trend them; obtain additional w/u as needed as outlined above (8) Folate deficiency: Plan: cont folic acid 1mg IV daily. plan 30 days of Rx whether IV or PO. 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 repeated level given her ongoing macrocytosis to ensure she does not need replacement again. (10) Macrocytic anemia: Plan: folate def. copper def. both likely contributing. s/p 1 unit PRBCs earlier this admission. improved H/H. follow H/H every 2-3 days for stability. (11) CAD (coronary artery disease): Plan: noted -- CAD s/p CABG x 1 (2015) and s/p SVG to RCA Graft Stent 01/06/21, Anomalous Circumflex Coronary Artery hold Lipitor due to high LFTs cont plavix --HOLDING STARTING 07/23 for muscle biopsy as above cont metoprolol cont ranexa cont imdur some of her chronic STEPHENS/chest tightness could be from CAD some of it could be her anemia in setting of CAD (12) High serum ferritin: Plan: noted has had w/u for this by heme/onc in the past no hemochromatosis based on records (13) Paroxysmal atrial flutter: Plan: and paroxysmal a.fib cont BB cont xarelto (14) Generalized weakness: Plan: likely multifactorial - anemia, UTI, ?concern for malignancy, nutritional deficiencies, concern for myopathy, adrenal insufficiency as above. 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 (19) Chronic kidney disease, stage IV (severe): Plan: baseline CrCl 15-30 bmps have been stable Plan: PT/OT -- likely to need rehab pt's son extensively updated by phone yesterday evening, consent for muscle biopsy monday MRI brain w/wo as well as cervical spine w/wo, B12, Lyme, urine myoglobin pending Neuro on consult -- can reach out tomorrow with questions/results/continued recommendations Admission and Anticipated Discharge Date Admission Date: July 20, 2021 Subjective patient evaluated this morning intermittent whiftiness believes she started statin after cardiac cath last year. discussed holding this/discontinuing and labs as send out to see if antibodies against such seen by neurology this morning and reviewed additional imaging requested. no fever/chills but endorses profound weakness. Discussed surgery consult additionally for muscle biopsy. No chest pain, improvement in breathing. Very hungry. Questions/concerns addressed at this time. Of note, review of lifetime labs with elevated tryptase in September 2020, curious if related to current condition. Review of Systems Review of Systems: All systems reviewed & are unremarkable except as noted in HPI & below Physical Exam Physical Exam: gen - very thin, cachectic appearing, NAD mouth - MMM; no thrush neck - no JVD, eyes- pupils equal and reactive to light, EOMI intact, normal visual cam by confrontation heart - RR, s1 s2, 1/6 KANWAL LSB, irregular lungs - decreased BS right base, otherwise CTA b/l abd - soft, NT, ND, BS+, no HSM ext - mild edema - about trace-1+ b/l, pulses 2+ b/l psych - a/o x 3 , intermittent confusion with month/year, poor historian skin - ecchymoses and old, scabbed ulcerations on shins; Left shoulder ulceration with scab/healing neuro - significant proximal muscle weakness of hips (flexion is 3-4/5 at best); distal strength of feet/ankles - dorsiflexion/plantarflexion - 5/5; handgrips 5/5; proximal muscle weakness of b/l shoulder region although L shoulder has significant rotator cuff issues (muscle wasting noted of the leandra-shoulder muscles), decreased muscle tone, glove/stocking paresthesia with decreased sensation to pinprick 0/4 reflexes, ?1/4 quad tendon, no clonus or pronator drift appreciated Results & Data Results & Data ([facility]) Vital Signs (Past 12 Hours) Vital Signs Temp Pulse Pulse Resp BP BP Pulse Ox 07/24/21 07:30 35.9 C L 55 L 20 144/81 H 98 07/23/21 22:45 36.2 C L 65 16 112/71 94 Laboratory Results 07/24/21 07/24/21 07/24/21 Range/Units 12:32 11:47 11:22 WBC (4.8-10.8) K/uL RBC (4.2-5.4) M/uL Hgb (12.0-16.0) g/dL Hct (37-47) % MCV (80-100) fL MCH (25-34) pg MCHC (32-36) g/dL RDW Std Deviation (36.4-46.3) fL RDW Coeff of Argenis (11.5-14.5) % Plt Count (130-400) K/uL MPV (7.4-10.4) fL Sodium (136-145) mmol/L Potassium (3.5-5.1) mmol/L Chloride (98-107) mmol/L Carbon Dioxide (21-32) mmol/L Anion Gap (3-11) BUN (6-23) mg/dl Creatinine Est Cr Clr Drug Dosing Est GFR ( Amer) Est GFR (Non-Af Amer) BUN/Creatinine Ratio (10-20) Glucose (70-99(Fasting)) mg/dl POC Glucose 136 H (70-99) mg/dl Calcium (8.5-10.1) mg/dl Total Bilirubin (0.2-1.0) mg/dl AST (13-39) U/L ALT (7-52) U/L Alkaline Phosphatase (34-104) U/L Total Creatine Kinase (26-192) U/L B-Natriuretic Peptide 1398 H (0-100) pg/ml Total Protein (6.0-8.3) gm/dl Albumin (3.4-5.0) gm/dl Globulin (2.5-4.0) gm/dl Albumin/Globulin Ratio (0.9-2) ACTH Urine Myoglobin Serum Copper RBC Copper Lyme Disease IgG Ab Negative (Negative) Lyme Disease IgM Ab Negative (Negative) Miscellaneous Test 07/24/21 07/24/21 07/24/21 Range/Units 11:15 10:11 10:11 WBC (4.8-10.8) K/uL RBC (4.2-5.4) M/uL Hgb (12.0-16.0) g/dL Hct (37-47) % MCV (80-100) fL MCH (25-34) pg MCHC (32-36) g/dL RDW Std Deviation (36.4-46.3) fL RDW Coeff of Argenis (11.5-14.5) % Plt Count (130-400) K/uL MPV (7.4-10.4) fL Sodium (136-145) mmol/L Potassium (3.5-5.1) mmol/L Chloride (98-107) mmol/L Carbon Dioxide (21-32) mmol/L Anion Gap (3-11) BUN (6-23) mg/dl Creatinine 1.50 H Est Cr Clr Drug Dosing 22.2 Est GFR ( Amer) 37.5 Est GFR (Non-Af Amer) 32.3 BUN/Creatinine Ratio (10-20) Glucose (70-99(Fasting)) mg/dl POC Glucose (70-99) mg/dl Calcium (8.5-10.1) mg/dl Total Bilirubin (0.2-1.0) mg/dl AST (13-39) U/L ALT (7-52) U/L Alkaline Phosphatase (34-104) U/L Total Creatine Kinase 2229 H (26-192) U/L B-Natriuretic Peptide (0-100) pg/ml Total Protein (6.0-8.3) gm/dl Albumin (3.4-5.0) gm/dl Globulin (2.5-4.0) gm/dl Albumin/Globulin Ratio (0.9-2) ACTH Pending Urine Myoglobin Pending Serum Copper Pending RBC Copper Pending Lyme Disease IgG Ab (Negative) Lyme Disease IgM Ab (Negative) Miscellaneous Test 07/24/21 07/24/21 07/24/21 Range/Units 10:11 10:11 10:11 WBC 16.55 H (4.8-10.8) K/uL RBC 3.70 L (4.2-5.4) M/uL Hgb 12.1 (12.0-16.0) g/dL Hct 36.0 L (37-47) % MCV 97.3 (80-100) fL MCH 32.7 (25-34) pg MCHC 33.6 (32-36) g/dL RDW Std Deviation 54.3 H (36.4-46.3) fL RDW Coeff of Argenis 15.4 H (11.5-14.5) % Plt Count 339 (130-400) K/uL MPV 10.3 (7.4-10.4) fL Sodium 133 L (136-145) mmol/L Potassium 4.4 (3.5-5.1) mmol/L Chloride 103 (98-107) mmol/L Carbon Dioxide 20 L (21-32) mmol/L Anion Gap 10 (3-11) BUN 34 H (6-23) mg/dl Creatinine 1.53 H Cancelled Est Cr Clr Drug Dosing 21.8 Cancelled Est GFR ( Amer) 36.6 Cancelled Est GFR (Non-Af Amer) 31.6 Cancelled BUN/Creatinine Ratio 22.2 H (10-20) Glucose 156 H (70-99(Fasting)) mg/dl POC Glucose (70-99) mg/dl Calcium 8.0 L (8.5-10.1) mg/dl Total Bilirubin 0.6 (0.2-1.0) mg/dl AST 231 H (13-39) U/L ALT 166 H (7-52) U/L Alkaline Phosphatase 168 H (34-104) U/L Total Creatine Kinase (26-192) U/L B-Natriuretic Peptide (0-100) pg/ml Total Protein 5.9 L (6.0-8.3) gm/dl Albumin 2.9 L (3.4-5.0) gm/dl Globulin 3.0 (2.5-4.0) gm/dl Albumin/Globulin Ratio 1.0 (0.9-2) ACTH Urine Myoglobin Serum Copper RBC Copper Lyme Disease IgG Ab (Negative) Lyme Disease IgM Ab (Negative) Miscellaneous Test 07/24/21 07/24/21 07/23/21 Range/Units 10:11 08:15 20:41 WBC (4.8-10.8) K/uL RBC (4.2-5.4) M/uL Hgb (12.0-16.0) g/dL Hct (37-47) % MCV (80-100) fL MCH (25-34) pg MCHC (32-36) g/dL RDW Std Deviation (36.4-46.3) fL RDW Coeff of Argenis (11.5-14.5) % Plt Count (130-400) K/uL MPV (7.4-10.4) fL Sodium (136-145) mmol/L Potassium (3.5-5.1) mmol/L Chloride (98-107) mmol/L Carbon Dioxide (21-32) mmol/L Anion Gap (3-11) BUN (6-23) mg/dl Creatinine Est Cr Clr Drug Dosing Est GFR ( Amer) Est GFR (Non-Af Amer) BUN/Creatinine Ratio (10-20) Glucose (70-99(Fasting)) mg/dl POC Glucose 132 H 167 H (70-99) mg/dl Calcium (8.5-10.1) mg/dl Total Bilirubin (0.2-1.0) mg/dl AST (13-39) U/L ALT (7-52) U/L Alkaline Phosphatase (34-104) U/L Total Creatine Kinase (26-192) U/L B-Natriuretic Peptide (0-100) pg/ml Total Protein (6.0-8.3) gm/dl Albumin (3.4-5.0) gm/dl Globulin (2.5-4.0) gm/dl Albumin/Globulin Ratio (0.9-2) ACTH Urine Myoglobin Serum Copper RBC Copper Lyme Disease IgG Ab (Negative) Lyme Disease IgM Ab (Negative) Miscellaneous Test Pending 07/23/21 Range/Units 17:04 WBC (4.8-10.8) K/uL RBC (4.2-5.4) M/uL Hgb (12.0-16.0) g/dL Hct (37-47) % MCV (80-100) fL MCH (25-34) pg MCHC (32-36) g/dL RDW Std Deviation (36.4-46.3) fL RDW Coeff of Argenis (11.5-14.5) % Plt Count (130-400) K/uL MPV (7.4-10.4) fL Sodium (136-145) mmol/L Potassium (3.5-5.1) mmol/L Chloride (98-107) mmol/L Carbon Dioxide (21-32) mmol/L Anion Gap (3-11) BUN (6-23) mg/dl Creatinine Est Cr Clr Drug Dosing Est GFR ( Amer) Est GFR (Non-Af Amer) BUN/Creatinine Ratio (10-20) Glucose (70-99(Fasting)) mg/dl POC Glucose 103 H (70-99) mg/dl Calcium (8.5-10.1) mg/dl Total Bilirubin (0.2-1.0) mg/dl AST (13-39) U/L ALT (7-52) U/L Alkaline Phosphatase (34-104) U/L Total Creatine Kinase (26-192) U/L B-Natriuretic Peptide (0-100) pg/ml Total Protein (6.0-8.3) gm/dl Albumin (3.4-5.0) gm/dl Globulin (2.5-4.0) gm/dl Albumin/Globulin Ratio (0.9-2) ACTH Urine Myoglobin Serum Copper RBC Copper Lyme Disease IgG Ab (Negative) Lyme Disease IgM Ab (Negative) Miscellaneous Test PG Care Time/CCT Total # of Minutes Spent Total Time Spent with Patient: Total time spent is greater than 50% in coordination of care (as documented) at patient's floor/unit and/or counseling patient: Coding Level of Care Code 03487 Subseq Hosp Care Lvl 3 Diagnoses Adrenal insufficiency E27.40 Myopathy G72.9 Elevated creatine kinase level R74.8 UTI (urinary tract infection) N39.0 Hypoglycemia E16.2 Liver mass, right lobe R16.0 Abnormal LFTs R79.89 Folate deficiency E53.8 Copper deficiency E61.0 Macrocytic anemia D53.9 CAD (coronary artery disease) I25.10 Coronary Disease-Associated Artery/Lesion type: pam[place]key artery [place] vs. transplanted heart: pam[place]key heart Associated angina: without angina High serum ferritin R79.89 Paroxysmal atrial flutter I48.92 Generalized weakness R53.1 Multiple pulmonary nodules determined by computed tomography of lung R91.8 Severe protein-calorie malnutrition E43 DVT prophylaxis Z29.9 Temporal lobe epilepsy G40.109 Chronic kidney disease, stage IV (severe) N18.4 (1) CAD (coronary artery disease) Coronary Disease-Associated Artery/Lesion type: [place] artery [place] vs. transplanted heart: [place]key heart Associated angina: without angina Qualified Code(s): I25.10 - Atherosclerotic heart disease of pam[place]key coronary artery without angina pectoris
[2021-07-24] MEDS: METOPROLOL SUCC 50MG EXT REL TAB PO SCH ×2 (09:44→20:34)
[2021-07-24] MEDS: RANOLAZINE 500 MG ER TAB PO SCH ×2 (09:44→20:34)
[2021-07-24] MEDS: FLUCONAZOLE 100 MG TAB PO SCH (09:45)
[2021-07-24] MEDS: ISOSORBIDE MONO EXTENDED REL 60 MG TABCR PO SCH (09:45)
[2021-07-24] MEDS: CLOPIDOGREL BISULFATE 75 MG TAB PO SCH (09:45)
[2021-07-24] MEDS: FOLIC ACID 1 MG in SYRINGE 9.8 ML IV SCH (09:46)
[2021-07-24] MEDS: prednisoLONE acetate 1% OP SUSP 5 ML BTL OP SCH (09:46)
--- NOTE | 2021-07-24 09:49 | Neurology Consultation ---
Date of Consultation July 24, 2021 Assessment & Plan (1) Rapidly progressive weakness: (2) Myopathy: (3) Elevated creatine kinase level: (4) Idiopathic polyneuropathy: (5) Cervical spine pain: (6) Lumbar spine pain: (7) Memory deficits: This is a very complicated patient neurologically and I am concerned with her rapid progression of weakness and recent laboratory changes of elevated CK and CRP. Clinically she displays a proximal weakness pattern consistent with myopathy. The most obvious etiology would be the statin Lipitor which she has been on for almost 8 months. Interestingly, she did not have an elevated CK, CRP, or liver enzymes in May during her last hospitalization. In addition to the more typical myalgias, weakness, elevated CK and myopathy that statins can produce, Lipitor can also cause a rare autoimmune myopathy that could give a clinical picture like this. certainly, another etiology to her myopathy including a typical myositis is possible also. Additionally she has evidence of a polyneuropathy involving predominantly sensory fibers of uncertain etiology. I am concerned that we might be missing upper motor neuron issues from the cervical spine or brain because of the presence of peripheral neuropathy. She has some known C3-[address]. With the memory deficits and urinary incontinence I cannot exclude central conditions such as normal pressure hydrocephalus complicating the picture. certainly, significant anemia, urinary tract infections, hypoglycemia, and adrenal insufficiency could also add to her weakness and debilitation. Recommendations: 1. Discontinue Lipitor. 2. Anti HMGCR antibody was sent 3. Follow serial CKs (daily or every other day) and obtain B12, folate, Lyme antibody titers 4. physical and occupational therapy. 5. Check urine for myoglobin 6. EMG nerve conduction studies of 1 arm and leg as an outpatient. Unfortunately, we cannot do this is an inpatient currently. 7. consider central nervous system workup with MRI of the brain and cervical spine to evaluate for normal pressure hydrocephalus and significant cervical spinal stenosis which could give a myelopathy. 8. consider steroids to treat the weakness. if this is proven autoimmune myopathy, we then could consider IVIG or other immune suppressive treatments 9. Consider muscle biopsy of quadriceps and/or deltoid Overall, I spent a total of 120 minutes with this case including review of records, direct evaluation the patient bedside, and discussion of the case with the patient and RN at bedside and Miranda Quevedo PA-C, including differential diagnosis and treatment options. History of Present Illness Reason for Consultation: Patient is an 80-year-old, who was asked to see the request of Dr. Mendoza, for neurologic consultation regarding weakness and probable myopathy. Requesting Physician: Dr. Mendoza Attending Physician: Rommel Aggarwal MD History of Present Illness this patient is an 80-year-old, with a history of hypertension, CKD (3), osteoarthritis, chronic diastolic congestive heart failure, and dyslipidemia. She tells me that she was initiated on Lipitor in November of 2020 has been in it ever since. patient states she has chronic anemia. The patient tells me that she has had intermittent low back pain for at least 5 years, with a recent fall in April exacerbating her low back pain. She also has chronic cervical spine pain for years as well. she has had weakness in her legs for many months and has been falling intermittently. She claims that the falling recently can either be due to some lightheadedness / dizziness when she is up, but mostly weakness with her legs buckling or aninability to keep herself up using the walker. This weakness has been progressive over the last 2-3 months and the falling has been worse. She says that her limbs can "quiver or have a mild jerk" when she is sitting and resting on occasion. She feels that her arms and legs are weak particularly proximally. It is hard for her to even sit up. She has numbness in her feet and hands which has been chronic as well. Occasionally she has incontinence of urine and she has some mild memory issues. She was admitted from June 21 through June 27 of this year for the weakness and falling as well as a decubitus ulcer. Weakness was described as multifactorial from anemia, poor p.o. intake, deconditioning, and hypoglycemia. She was treated for a urinary tract infection with lactobacillus and she grew Pseudomonas side of the leg. She was given Levaquin and completed the course before discharge. At that time, a CK was 58, CK was 22, and CRP was less than 0.05. CT scan of the head was unremarkable. Patient had a CT scan of the lumbar spine July 06 showing old compression fractures and other degenerative changes. CT scan of the cervical spine showed degenerative changes as well including stenosis from bone at C3-4 (unchanged from a study June 21 ). The patient was readmitted July 20, with hypoglycemia (60s) abnormal liver enzyme levels ( AST 296, ALT 120, alkaline phos 134 ), anemia ( hemoglobin 8.2) and Electrolyte abnormalities ( potassium 2.9 and has had calcium 7.4 ). She was noted to have a CK of 1542 on July 22 with a CRP of 1.05 on July 21. CK was 1932 on July 23 and the CRP was decreased to 0.53. Sed rate was 27 and TSH was normal at 2.4. The patient clinically seems weaker and cannot even sit up now well. She has proximal greater than distal weakness. She feels that her muscles are tender as well. She is very fatigued. She believes that she has some occasional memory issues her hands and feet are numb. She feels she is very weak in all 4 limbs. Additional history reveals that the patient was a significant alcohol user in the past but now only rarely has a glass of wine Allergies Allergy/AdvReac Type Severity Reaction Status Date / Time banana Allergy Unknown HIVES/ITCHI Verified 07/20/21 17:08 NG Iodinated Contrast Media Allergy Unknown "CONTRAST"- Verified 07/20/21 17:08 HIVES/ITCHI NG povidone-iodine Allergy Unknown "drops for Verified 07/20/21 17:08 [From Betadine] eye before injection" - fox/vision trouble soap [From Betadine] Allergy Unknown "drops for Verified 07/20/21 17:08 eye before injection" - fox/vision trouble Home Medications Medication Instructions Recorded Confirmed Type vitamins A,C,A-wnhx-mdboes 7,160 1 tab PO BIDM 07/03/19 07/20/21 History unit-113 mg-100 unit tablet (PreserVision AREDS) gabapentin 300 mg capsule 900 mg PO HS 90 Days #270 cap 08/26/20 07/20/21 Rx atorvastatin 40 mg tablet (Lipitor) 40 mg PO HS #90 tab 08/28/20 07/20/21 Rx potassium chloride 8 mEq 16 meq PO QAM 09/08/20 07/20/21 History tablet,extended release ubrogepant 100 mg tablet (Ubrelvy) 100 mg PO DAILY PRN 12/09/20 07/20/21 History nitroglycerin 0.4 mg sublingual 0.4 mg SUBLINGUAL UD PRN #25 tab 01/04/21 07/20/21 Rx tablet clopidogrel 75 mg tablet 75 mg PO QAM #30 tab 01/09/21 07/20/21 Rx prednisolone acetate 1 % eye 1 drp OPR QAM ml 03/24/21 07/20/21 History drops,suspension ranolazine 500 mg tablet,extended 500 mg PO BID #60 tab 04/05/21 07/20/21 Rx release,12 hr (Ranexa) furosemide 40 mg tablet (Lasix) 40 mg PO QAM #90 tab 04/07/21 07/20/21 Rx Oxygen Home #1 ea 04/21/21 07/20/21 Rx cyanocobalamin (vitamin B-12) 0 mcg IM MONTHLY 05/15/21 07/20/21 History 1,000 mcg/mL injection solution isosorbide mononitrate 120 mg 240 mg PO QAM tab 06/18/21 07/20/21 History tablet,extended release 24 hr calcitriol 0.25 mcg capsule 0.25 mcg PO 3XWK #36 cap 06/23/21 07/20/21 Rx aflibercept 2 mg/0.05 mL 1 mg INTRAVITREAL MONTHLY 07/06/21 07/20/21 History intravitreal syringe (Eylea) digoxin 125 mcg (0.125 mg) tablet 125 mcg PO Q2D 07/06/21 07/20/21 History epinephrine 0.3 mg/0.3 mL 0.3 mg SUBCUT UD PRN 07/06/21 07/20/21 History injection, auto-injector hydrocodone 5 mg-acetaminophen 325 1 tab PO Q6H PRN 07/06/21 07/20/21 History mg tablet rivaroxaban 15 mg tablet (Xarelto) 15 mg PO .AFTER DINNER 07/06/21 07/20/21 History glucose 4 gram chewable tablet 4 g PO Q15M PRN #10 tab 07/14/21 07/20/21 Rx (Dex4 Glucose) metoprolol succinate 200 mg See Rx Instructions .ROUTE 07/15/21 07/20/21 Rx tablet,extended release 24 hr .COMPLEX #135 tab Patient History Medical History Benign essential tremor CAD (coronary artery disease) CABG x 1 vessel 2016 Cerebellar infarct Follows with neuro= "Prior cerebellar stroke without residual deficits" - continue ASA and statin Chronic diastolic congestive heart failure Chronic hypoxemic respiratory failure Chronic low back pain Copper deficiency Corneal dystrophy CVA (cerebral vascular accident) NO RESIDUAL AT AGE 50 Diabetes Endothelial corneal dystrophy Family history of reaction to anesthesia SISTER - HIVES, N/V GERD (gastroesophageal reflux disease) History of cardioversion 1978 & AUGUST 2020 History of FL (myocardial infarction) 1978 History of vertigo Hyperlipemia Hypertension Intrahepatic cholangiocarcinoma Liver cancer DX AUGUST 2020 - [facility] Liver mass DX JULY 2020 Macular degeneration Mitral regurgitation Mild to moderate per 2019 ECHO Multiple pulmonary nodules determined by computed tomography of lung Osteoporosis Osteoporosis with fracture fx ribs from falling, NO CURRENT FRACTURES Pancreatic tumor had surgery removal of head Paroxysmal atrial fibrillation and flutter--On Xarelto , DX 2018 - HX CARDIOVERSION AUGUST 2020 Peripheral neuropathy Pulmonary hypertension PASP 30-40mmHg Pulmonary nodule monitored yearly Sleep apnea Spondylosis Temporal lobe epilepsy Follows with neuro Started on Keppra in Spring 2019 with no further events since that time Continue Keppra per 08/10/20 neuro note Weakness Surgical History Gastric bypass status for obesity H/O abdominoplasty WITH NECK REPAIRED WELL H/O cataract extraction right and left H/O ovarian cystectomy H/O thumb surgery left and right H/O Whipple procedure History of appendectomy History of breast biopsy several both sides History of corneal transplant right eye History of ear surgery 1967, LEFT History of liver biopsy History of resection of pancreas head of pancreas removed 2009 History of total right hip replacement History of transmyocardial revascularization Hx of cardiac cath 2013, AUGUST 2015, october 2020, november 2020 Hx of cholecystectomy S/P CABG (coronary artery bypass graft) 2015 S/P cholecystectomy S/P tonsillectomy and adenoidectomy S/P trigger finger release left thumb x3, one surgery on right Status post right knee replacement Family History Sister Breast cancer 2 sisters Diabetes 2 sisters Heart disease Cancer 2 sisters Father , age 64 of an [place] Myocardial infarction Heart disease Hypertension Brother Myocardial infarction Diabetes Heart disease 2 brothers Hypertension Mother , age 92 of a stroke Non-Hodgkin lymphoma Stroke Cancer Grandfather Diabetes Heart disease Denies family history of Ovarian cancer Prostate cancer Colorectal cancer Social History Smoking Status: Former smoker Age Started Using Tobacco: 16; Age Quit Using Tobacco: 50; packs per day: 1.5; Cigarettes Per Day: 30; Second Hand Exposure: No; Do You Dip or Chew Tobacco: No; Tobacco Cessation Education Requested by Patient: No Hx Alcohol Use: No Hx Substance Use: No Preferred Language: Belgian Communication Ability: Effective Visual Impairment: Limited Hearing Ability: Normal Art Museum Aide Required: No Beliefs That Will Affect Care: None marital status: / Current Living Situation: Alone Current Living Situation Comment: 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 current occupational status: retired Other Information That Helps Us Care for You: No Feels Safe at Home: Yes Safety Concerns: Feels Safe At This Time Childhood Exposure to Second-Hand Smoke: No caffeine: No during the past year weight has: decreased > 10 lbs Dental Care, Regularly: Yes Physical Activity Frequency: Does not Exercise Seatbelt Use: always Sunscreen Use: Yes Do you think of yourself as: straight/heterosexual Gender Identity: Female Assistive Devices: Walker Review of Systems Constitutional: + fatigue, + malaise and + weakness; no fever Eyes: no diplopia, no eye pain and no worsening vision Ear, Nose, Mouth, Throat: no ear pain, no tinnitus, no hearing loss, no dizziness, no snoring, no hoarseness and no dysphagia Respiratory: no cough and no dyspnea Cardiovascular: no chest pain, no palpitations and no lightheadedness Gastrointestinal: no abdominal pain, no nausea and no vomiting Genitourinary: no dysuria, no urinary frequency and no urinary incontinence Musculoskeletal: + back pain, + neck pain, + joint pain, + myalgia, + muscle weakness and + body aches; no radicular pain Integumentary: no rash and no lesions Neurologic: + gait abnormality, + generalized weakness, + numbness and + memory loss; no localized weakness, no tingling, no tremor(s), no abnormal movements, no headache(s), no abnormal speech and no confusion Psychiatric: no depression, no irritability, no anxiety, no difficulty concentrating, no confusion and no hallucinations Endocrine: no fatigue and no flushing Hematologic / Lymphatic: no easy bleeding and no easy bruising Allergy / Immunological: no urticaria and no problem reported Exam (Neuro) Physical Exam: The patient is right-handed. The patient is awake, alert, and attentive. Speech is normal without any aphasia or dysarthria. The patient can name objects, repeat phrases, and has normal spontaneous speech. ood and affect are normal and appropriate. General appearance and grooming are normal. she is oriented to where she is, her age and the president. He she does not know the month, the year, the date, or the day. She gets confused with chronological history and is not a good historian. Pupils are 4 mm bilaterally and reactive to light. Extraocular eye muscles are intact without nystagmus. Visual acuity and visual cam seem normal grossly to confrontation. There are no deficits to sensation in the face in all 3 distributions of the fifth cranial nerve bilaterally. Corneal reflexes are positive bilaterally. Facial strength and symmetry was normal bilaterally. Hearing seems normal bilaterally. Palate moves well without asymmetry. There is normal sternocleidomastoid and trapezius (shoulder shrug) strength bilaterally. Tongue is midline with good strength bilaterally. Neck has a full range of motion without discomfort. There are no cervical bruits bilaterally. There are no cranial or ocular bruits. Heart is without murmur. There is a regular rhythm and rate. Gait Was not tested and stance sitting up in bed is very poor, being unable to maintain a sitting posture. With outstretched arms there is no drift but left arm lowers quicker than the right. There are no resting, postural, or action tremors. There is no ataxia with finger to nose testing. There is reasonable facility in the hands. No other abnormal involuntary movements are noted. Motor strength is 4-/5 in the deltoids, biceps, and triceps muscles bilaterally. Intrinsic hand muscles, a and p technician, and wrist flexors and extensors are 4 to 4+/5 bilaterally. Proximal leg strength is 3-4 minus/ 5 in the hip flexors and quadriceps bilaterally. Distally strength is 4/5 in the tibialis anterior and toe extensor muscles and 5/5 in the gastrocnemius muscles bilaterally. The limbs have mildly decreased tone, without rigidity or spasticity. There is no focal atrophy noted in the muscles, but she is thin throughout. Muscle bulk is reasonable and there is tenderness to palpation in major muscles proximally. There was no myotonia to percussion and no fasciculations seen. Sensory examination revealed a stocking glove decrease sensation to pinprick in all 4 limbs legs greater than hands. Reflexes are 0/4 in the biceps, triceps, brachioradialis,and Achilles tendons bilaterally. Quadriceps tendons were trace bilaterally. There is no clonus bilaterally. Toes are downgoing with plantar stimulation bilaterally. Peripheral pulses are present and of normal quality distally in all 4 limbs. There is no peripheral edema noted in the limbs. Results & Data ([facility]) Vital Signs (Past 12 Hours) Vital Signs Temp Pulse Pulse Resp BP BP Pulse Ox 07/24/21 07:30 35.9 C L 55 L 20 144/81 H 98 07/23/21 22:45 36.2 C L 65 16 112/71 94 PG Care Time/CCT Total # of Minutes Spent Total Time Spent with Patient: Total time spent is greater than 50% in coordination of care (as documented) at patient's floor/unit and/or counseling patient: Coding Level of Care Code 74912 Initial Inpt Care Lvl 3 Diagnoses Myopathy G72.9 Rapidly progressive weakness R53.1 Elevated creatine kinase level R74.8 Idiopathic polyneuropathy G60.9 Cervical spine pain M54.2 Lumbar spine pain M54.50 Memory deficits R41.3 Time Spent (min) 120 Comment add modifiers as able
[2021-07-24 10:32] LABS: Hemoglobin 12.1 g/dL (12.0-16.0); Mean Corpuscular Hemoglobin 32.7 pg (25-34); Mean Corpuscular Hgb Conc 33.6 g/dL (32-36); Mean Corpuscular Volume 97.3 fL (80-100); Mean Platelet Volume 10.3 fL (7.4-10.4); Platelet Count 339 K/uL (130-400); RDW Coefficient of Variation 15.4 % (11.5-14.5); RDW Standard Deviation 54.3 fL (36.4-46.3); White Blood Count 16.55 K/uL (4.8-10.8)
[2021-07-24 10:44] LABS: Albumin Level 2.9 gm/dl (3.4-5.0); BUN Creatinine Ratio 22.2 (10-20); Bilirubin,Total 0.6 mg/dl (0.2-1.0); Creatinine Clr Calc Pharmacy 21.8 ml/min; Creatinine Clr Calc Pharmacy 22.2 ml/min; Est GFR (African American) 36.6 ml/min; Est GFR (African American) 37.5 ml/min; Est GFR (Non-African American) 31.6 ml/min; Est GFR (Non-African American) 32.3 ml/min; Potassium 4.4 mmol/L (3.5-5.1); Total Protein 5.9 gm/dl (6.0-8.3)
--- NOTE | 2021-07-24 11:55 | Surgery Consultation ---
Date of Consultation July 24, 2021 Assessment & Plan (1) Weakness: pt is a 80 year-old female who was admitted to hospital with weakness, consult for muscle biopsy, Plan, I recommend to do right upper leg muscle biopsy under sedation + local anesthesia on 07/26/2021, D/W benefits, risks and alternatives of the surgery, the risks - infection, bleeding, hematoma, pt and her son ( Isidro Quezada [phone]) they understood, they agree with the surgery, pt signed informed consent, I answered all questions, Hold plavix and Xarelto for 07/25/21 and 07/26/21, start ASA 81 mg po once a day, please D/W with line installer for this plan, NPO after MN on 07/25/2021 , repeat labs PT, INR, PTT on morning 07/26/2021, will F/U, Supervising Physician Co-Signing Physician Notes Patient seen and examined, chart reviewed, case discussed with Dr. Salinas and I agree with the assessment and plan as above. In brief, patient is an 80yo female with multiple medical comorbidities presenting with reports of episodic hypoglycemia - BSG to 30's in AM as well as diffuse weakness. Patient does not take any medications for blood sugar control. Hypokalemia, hypomagnesemia as well. On exam she is afebrile, HD stable, nontoxic in appearance Skin - dressings in place on bilateral LE, decubitus not personally visualized HEENT - NC/AT, PERRL, MMM, Neck supple Heart - +S1/S2, regular, Lungs - CTA Abd - +BS, soft, NT/ND Ext - +edema Labs and images reviewed Assessment/plan -trend bsg. Check LFTs, Liver US and INR to assess liver function -?medication effects- BB contributing to hypoglycemia -Check random cortisol -Electrolyte repletion -Monitor urinary output -Remainder as above History of Present Illness Reason for Consultation: muscle biopsy Requesting Physician: Rommel Aggarwal MD Attending Physician: Rommel Aggarwal MD History of Present Illness CC: weakness, HPI: 80yo female with a PMH of atrial fibrillation, ANDREY, CAD s/p PCI, CKD, gastric bypass, and intrahepatic cholangiocarcinoma presents with a few-month history of progressive muscular weakness and a few-day history of intermittent hypoglycemia. Patient previously carried a diagnosis of DM2 but patient returned to the prediabetic range after gastric bypass surgery; patient has been off DM2 meds since then, but continues to periodically monitor her blood sugar. Patient notes her readings over the past week (taken first thing in the AM) have ranged from 32 to 110; patient came to the hospital today after noting a BSG in the 30s. Patient endorses a few-day history of increased appetite (though noting low PO intake secondary to feeling too weak to walk to the kitchen), and a one-day history of increased urinary frequency. No pain/burning with urination. Patient denies fever, chills, headache, CP, abdominal pain, nausea, vomiting, or other symptoms. Patient was recently hospitalized at [facility] from 06/21/21 to 06/27/21 for LE weakness and recurrent falls; at that time, patient's symptoms were felt to be multifactorial in etiology including poor PO intake, acute blood loss anemia, deconditioning, and dehydration. Infectious contribution was felt to be unlikely given lack of leukocytosis, no fever, no urinary symptoms, CXR not suggestive of pneumonia, decubitus ulcer without infectious appearance. Patient was discharged to [facility] where she worked with PT; patient left [facility] after four days and was discharged home. Patient does not think she had much of an improvement after her stay at [facility]. I ( korey Dickens MD ) got a call for consult muscle biopsy, I reviewed pt's H/P, labs, with pt and nurse at bedside, Allergies Allergy/AdvReac Type Severity Reaction Status Date / Time banana Allergy Unknown HIVES/ITCHI Verified 07/20/21 17:08 NG Iodinated Contrast Media Allergy Unknown "CONTRAST"- Verified 07/20/21 17:08 HIVES/ITCHI NG povidone-iodine Allergy Unknown "drops for Verified 07/20/21 17:08 [From Betadine] eye before injection" - fox/vision trouble soap [From Betadine] Allergy Unknown "drops for Verified 07/20/21 17:08 eye before injection" - fox/vision trouble Home Medications Medication Instructions Recorded Confirmed Type vitamins A,C,U-mdox-ppjjkv 7,160 1 tab PO BIDM 07/03/19 History unit-113 mg-100 unit tablet (PreserVision AREDS) gabapentin 300 mg capsule 900 mg PO HS 90 Days #270 cap 08/26/2006/30 Rx atorvastatin 40 mg tablet (Lipitor) 40 mg PO HS #90 tab 08/28/2006/30 Rx potassium chloride 8 mEq 16 meq PO QAM 09/08/20 07/20/21 Histor y tablet,extended release ubrogepant 100 mg tablet (Ubrelvy) 100 mg PO DAILY PRN 12/09/2007/20 History nitroglycerin 0.4 mg sublingual 0.4 mg SUBLINGUAL UD PRN #25 tab 01/04/21 07/20/21 Rx tablet clopidogrel 75 mg tablet 75 mg PO QAM #30 tab 01/09/21 07/20/21 Rx prednisolone acetate 1 % eye 1 drp OPR QAM ml 03/24/21 07/20/21 Hi story drops,suspension ranolazine 500 mg tablet,extended 500 mg PO BID #60 tab 04/05/2106/30 Rx release,12 hr (Ranexa) furosemide 40 mg tablet (Lasix) 40 mg PO QAM #90 tab 04/07/21 2 Rx Oxygen Home #1 ea 04/21/21 07/20/21 Rx cyanocobalamin (vitamin B-12) 0 mcg IM MONTHLY 05/15/21 07/20/21 H istory 1,000 mcg/mL injection solution isosorbide mononitrate 120 mg 240 mg PO QAM tab 06/18/21 07/20/21 H istory tablet,extended release 24 hr calcitriol 0.25 mcg capsule 0.25 mcg PO 3XWK #36 cap 06/23/21 2 Rx aflibercept 2 mg/0.05 mL 1 mg INTRAVITREAL MONTHLY 07/06/21 07/20/21 History intravitreal syringe (Eylea) digoxin 125 mcg (0.125 mg) tablet 125 mcg PO Q2D 07/06/21 History epinephrine 0.3 mg/0.3 mL 0.3 mg SUBCUT UD PRN 07/06/21 07/20/21 Hist ory injection, auto-injector hydrocodone 5 mg-acetaminophen 325 1 tab PO Q6H PRN 07/06/2107/20 History mg tablet rivaroxaban 15 mg tablet (Xarelto) 15 mg PO .AFTER DINNER 07/06/21 History glucose 4 gram chewable tablet 4 g PO Q15M PRN #10 tab 07/14/2107/20 Rx (Dex4 Glucose) metoprolol succinate 200 mg See Rx Instructions .ROUTE 07/15/21 07/20/21 Rx tablet,extended release 24 hr .COMPLEX #135 tab Past Med/Surg History Medical History Benign essential tremor CAD (coronary artery disease) CABG x 1 vessel 2016Cerebellar infarct Follows with neuro= "Prior cerebellar stroke without residual deficits" - continue ASA and statinChronic diastolic congestive heart failure Chronic hypoxemic respiratory failure Chronic kidney disease (CKD), stage III (moderate) Chronic low back pain Copper deficiency Corneal dystrophy CVA (cerebral vascular accident) NO RESIDUAL AT AGE 50Diabetes Endothelial corneal dystrophy Family history of reaction to anesthesia SISTER - HIVES, N/VGERD (gastroesophageal reflux disease) History of cardioversion 1978 & AUGUST 2020History of ME (myocardial infarction) 1978History of vertigo Hyperlipemia Hypertension Intrahepatic cholangiocarcinoma [facility] 2020Macular degeneration Mitral regurgitation Mild to moderate per 2019 ECHOMultiple pulmonary nodules determined by computed tomography of lung Osteoporosis Osteoporosis with fracture fx ribs from falling, NO CURRENT FRACTURESPancreatic tumor had surgery removal of headParoxysmal atrial fibrillation and flutter--On Xarelto , DX 2018 - HX CARDIOVERSION Augusteripheral neuropathy Pulmonary hypertension PASP 30-40mmHgPulmonary nodule monitored yearlySleep apnea Spondylosis Temporal lobe epilepsy Follows with neuro Started on Keppra in Spring 2019 with no further events since that time Continue Keppra per 08/10/20 neuro noteWeakness Surgical History Gastric bypass status for obesity H/O abdominoplasty WITH NECK REPAIRED WELLH/O cataract extraction right and leftH/O ovarian cystectomy H/O thumb surgery left and rightH/O Whipple procedure History of appendectomy History of breast biopsy several both sidesHistory of corneal transplant right eyeHistory of ear surgery 1967, LEFTHistory of liver biopsy History of resection of pancreas head of pancreas removed 2010History of total right hip replacement History of transmyocardial revascularization Hx of cardiac cath 2013, AUGUST 2015, october 2020, november 2020Hx of cholecystectomy S/P CABG (coronary artery bypass graft) 2016S/P cholecystectomy S/P tonsillectomy and adenoidectomy S/P trigger finger release left thumb x3, one surgery on rightStatus post right knee replacement Family History Sister Breast cancer 2 sisters Diabetes 2 sisters Heart disease Cancer 2 sistersFather Myocardial infarction Heart disease HypertensionBrother Myocardial infarction Diabetes Heart disease 2 brothers HypertensionMother Non-Hodgkin lymphoma Stroke CancerGrandfather Diabetes Heart diseaseDenies family history of Ovarian cancer Prostate cancer Colorectal cancer Social History Smoking Status: Former smoker Age Started Using Tobacco: 16; Age Quit Using Tobacco: 50; packs per day: 1.5; Cigarettes Per Day: 30; Second Hand Exposure: No; Do You Dip or Chew Tobacco: No; Tobacco Cessation Education Requested by Patient: No Hx Alcohol Use: No Hx Substance Use: No Preferred Language: Urdu Communication Ability: Effective Visual Impairment: Limited Hearing Ability: Normal Blanching Machine Operator Required: No Beliefs That Will Affect Care: None marital status: / Current Living Situation: Alone Current Living Situation Comment: 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 current occupational status: retired Other Information That Helps Us Care for You: No Feels Safe at Home: Yes Safety Concerns: Feels Safe At This Time Childhood Exposure to Second-Hand Smoke: No caffeine: No during the past year weight has: decreased > 10 lbs Dental Care, Regularly: Yes Physical Activity Frequency: Does not Exercise Seatbelt Use: always Sunscreen Use: Yes Do you think of yourself as: straight/heterosexual Gender Identity: Female Assistive Devices: Walker Review of Systems Review of Systems: See HPI Allergies Allergy/AdvReac Type Severity Reaction Status Date / Time banana Allergy Unknown HIVES/ITCHI Verified 07/20/21 17:08 NG Iodinated Contrast Media Allergy Unknown "CONTRAST"- Verified 07/20/21 17:08 HIVES/ITCHI NG povidone-iodine Allergy Unknown "drops for Verified 07/20/21 17:08 [From Betadine] eye before injection" - fox/vision trouble soap [From Betadine] Allergy Unknown "drops for Verified 07/20/21 17:08 eye before injection" - fox/vision trouble Home Medications Medication Instructions Recorded Confirmed Type vitamins A,C,O-xxng-oenlmg 7,160 1 tab PO BIDM 07/03/19 07/20/21 History unit-113 mg-100 unit tablet (PreserVision AREDS) gabapentin 300 mg capsule 900 mg PO HS 90 Days #270 cap 08/26/20 07/20/21 Rx atorvastatin 40 mg tablet (Lipitor) 40 mg PO HS #90 tab 08/28/20 07/20/21 Rx potassium chloride 8 mEq 16 meq PO QAM 09/08/20 07/20/21 History tablet,extended release ubrogepant 100 mg tablet (Ubrelvy) 100 mg PO DAILY PRN 12/09/20 07/20/21 History nitroglycerin 0.4 mg sublingual 0.4 mg SUBLINGUAL UD PRN #25 tab 01/04/21 07/20/21 Rx tablet clopidogrel 75 mg tablet 75 mg PO QAM #30 tab 01/09/21 07/20/21 Rx prednisolone acetate 1 % eye 1 drp OPR QAM ml 03/24/21 07/20/21 History drops,suspension ranolazine 500 mg tablet,extended 500 mg PO BID #60 tab 04/05/21 07/20/21 Rx release,12 hr (Ranexa) furosemide 40 mg tablet (Lasix) 40 mg PO QAM #90 tab 04/07/21 07/20/21 Rx Oxygen Home #1 ea 04/21/21 07/20/21 Rx cyanocobalamin (vitamin B-12) 0 mcg IM MONTHLY 05/15/21 07/20/21 History 1,000 mcg/mL injection solution isosorbide mononitrate 120 mg 240 mg PO QAM tab 06/18/21 07/20/21 History tablet,extended release 24 hr calcitriol 0.25 mcg capsule 0.25 mcg PO 3XWK #36 cap 06/23/21 07/20/21 Rx aflibercept 2 mg/0.05 mL 1 mg INTRAVITREAL MONTHLY 07/06/21 07/20/21 History intravitreal syringe (Eylea) digoxin 125 mcg (0.125 mg) tablet 125 mcg PO Q2D 07/06/21 07/20/21 History epinephrine 0.3 mg/0.3 mL 0.3 mg SUBCUT UD PRN 07/06/21 07/20/21 History injection, auto-injector hydrocodone 5 mg-acetaminophen 325 1 tab PO Q6H PRN 07/06/21 07/20/21 History mg tablet rivaroxaban 15 mg tablet (Xarelto) 15 mg PO .AFTER DINNER 07/06/21 07/20/21 History glucose 4 gram chewable tablet 4 g PO Q15M PRN #10 tab 07/14/21 07/20/21 Rx (Dex4 Glucose) metoprolol succinate 200 mg See Rx Instructions .ROUTE 07/15/21 07/20/21 Rx tablet,extended release 24 hr .COMPLEX #135 tab Patient History Medical History Benign essential tremor CAD (coronary artery disease) CABG x 1 vessel 2015 Cerebellar infarct Follows with neuro= "Prior cerebellar stroke without residual deficits" - continue ASA and statin Chronic diastolic congestive heart failure Chronic hypoxemic respiratory failure Chronic low back pain Copper deficiency Corneal dystrophy CVA (cerebral vascular accident) NO RESIDUAL AT AGE 50 Diabetes Endothelial corneal dystrophy Family history of reaction to anesthesia SISTER - HIVES, N/V GERD (gastroesophageal reflux disease) History of cardioversion 1978 & AUGUST 2020 History of ME (myocardial infarction) 1978 History of vertigo Hyperlipemia Hypertension Intrahepatic cholangiocarcinoma Liver cancer DX AUGUST 2020 - [facility] Liver mass DX JULY 2020 Macular degeneration Mitral regurgitation Mild to moderate per 2019 ECHO Multiple pulmonary nodules determined by computed tomography of lung Osteoporosis Osteoporosis with fracture fx ribs from falling, NO CURRENT FRACTURES Pancreatic tumor had surgery removal of head Paroxysmal atrial fibrillation and flutter--On Xarelto , DX 2018 - HX CARDIOVERSION AUGUST 2020 Peripheral neuropathy Pulmonary hypertension PASP 30-40mmHg Pulmonary nodule monitored yearly Sleep apnea Spondylosis Temporal lobe epilepsy Follows with neuro Started on Keppra in Spring 2019 with no further events since that time Continue Keppra per 08/10/20 neuro note Weakness Surgical History Gastric bypass status for obesity H/O abdominoplasty WITH NECK REPAIRED WELL H/O cataract extraction right and left H/O ovarian cystectomy H/O thumb surgery left and right H/O Whipple procedure History of appendectomy History of breast biopsy several both sides History of corneal transplant right eye History of ear surgery 1967, LEFT History of liver biopsy History of resection of pancreas head of pancreas removed 2009 History of total right hip replacement History of transmyocardial revascularization Hx of cardiac cath 2013, AUGUST 2015, october 2020, november 2020 Hx of cholecystectomy S/P CABG (coronary artery bypass graft) 2015 S/P cholecystectomy S/P tonsillectomy and adenoidectomy S/P trigger finger release left thumb x3, one surgery on right Status post right knee replacement Family History Sister Breast cancer 2 sisters Diabetes 2 sisters Heart disease Cancer 2 sisters Father , age 64 of an ME Myocardial infarction Heart disease Hypertension Brother Myocardial infarction Diabetes Heart disease 2 brothers Hypertension Mother , age 92 of a stroke Non-Hodgkin lymphoma Stroke Cancer Grandfather Diabetes Heart disease Denies family history of Ovarian cancer Prostate cancer Colorectal cancer Social History Smoking Status: Former smoker Age Started Using Tobacco: 16; Age Quit Using Tobacco: 50; packs per day: 1.5; Cigarettes Per Day: 30; Second Hand Exposure: No; Do You Dip or Chew Tobacco: No; Tobacco Cessation Education Requested by Patient: No Hx Alcohol Use: No Hx Substance Use: No Preferred Language: Urdu Communication Ability: Effective Visual Impairment: Limited Hearing Ability: Normal Blanching Machine Operator Required: No Beliefs That Will Affect Care: None marital status: / Current Living Situation: Alone Current Living Situation Comment: 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 current occupational status: retired Other Information That Helps Us Care for You: No Feels Safe at Home: Yes Safety Concerns: Feels Safe At This Time Childhood Exposure to Second-Hand Smoke: No caffeine: No during the past year weight has: decreased > 10 lbs Dental Care, Regularly: Yes Physical Activity Frequency: Does not Exercise Seatbelt Use: always Sunscreen Use: Yes Do you think of yourself as: straight/heterosexual Gender Identity: Female Assistive Devices: Walker Physical Exam Constitutional: WD/WN, vitals as above Eyes: PERRL, conjunctivae normal, anicteric sclerae Neck: trachea midline, no thyromegaly Respiratory: normal respiratory effort, lungs clear to auscultation Cardiovascular: RRR, no murmur, no edema Gastrointestinal (Abdomen): normal bowel sounds, soft, nontender, no hepatosplenomegaly Musculoskeletal: weakness at 4 ext, Neurologic: patellar DTR's 2+ bilat, sensation intact Psychiatric: A+Ox3, euthymic affect Results & Data ([facility]) Vital Signs (Past 12 Hours) Vital Signs Temp Pulse Resp BP Pulse Ox 07/24/21 07:30 35.9 C L 55 L 20 144/81 H 98 Laboratory Results Abnormal lab results 07/23/21 07/23/21 07/23/21 Range/Units 12:19 17:04 20:41 WBC (4.8-10.8) K/uL RBC (4.2-5.4) M/uL Hct (37-47) % RDW Std Deviation (36.4-46.3) fL RDW Coeff of Argenis (11.5-14.5) % Sodium (136-145) mmol/L Carbon Dioxide (21-32) mmol/L BUN (6-23) mg/dl Creatinine (0.6-1.2) mg/dl BUN/Creatinine Ratio (10-20) Glucose (70-99(Fasting)) mg/dl POC Glucose 147 H 103 H 167 H (70-99) mg/dl Calcium (8.5-10.1) mg/dl AST (13-39) U/L ALT (7-52) U/L Alkaline Phosphatase (34-104) U/L Total Creatine Kinase (26-192) U/L Total Protein (6.0-8.3) gm/dl Albumin (3.4-5.0) gm/dl 07/24/21 07/24/21 07/24/21 Range/Units 08:15 10:11 10:11 WBC 16.55 H (4.8-10.8) K/uL RBC 3.70 L (4.2-5.4) M/uL Hct 36.0 L (37-47) % RDW Std Deviation 54.3 H (36.4-46.3) fL RDW Coeff of Argenis 15.4 H (11.5-14.5) % Sodium 133 L (136-145) mmol/L Carbon Dioxide 20 L (21-32) mmol/L BUN 34 H (6-23) mg/dl Creatinine 1.53 H (0.6-1.2) mg/dl BUN/Creatinine Ratio 22.2 H (10-20) Glucose 156 H (70-99(Fasting)) mg/dl POC Glucose 132 H (70-99) mg/dl Calcium 8.0 L (8.5-10.1) mg/dl AST 231 H (13-39) U/L ALT 166 H (7-52) U/L Alkaline Phosphatase 168 H (34-104) U/L Total Creatine Kinase (26-192) U/L Total Protein 5.9 L (6.0-8.3) gm/dl Albumin 2.9 L (3.4-5.0) gm/dl 07/24/21 Range/Units 10:11 WBC (4.8-10.8) K/uL RBC (4.2-5.4) M/uL Hct (37-47) % RDW Std Deviation (36.4-46.3) fL RDW Coeff of Argenis (11.5-14.5) % Sodium (136-145) mmol/L Carbon Dioxide (21-32) mmol/L BUN (6-23) mg/dl Creatinine 1.50 H (0.6-1.2) mg/dl BUN/Creatinine Ratio (10-20) Glucose (70-99(Fasting)) mg/dl POC Glucose (70-99) mg/dl Calcium (8.5-10.1) mg/dl AST (13-39) U/L ALT (7-52) U/L Alkaline Phosphatase (34-104) U/L Total Creatine Kinase 2229 H (26-192) U/L Total Protein (6.0-8.3) gm/dl Albumin (3.4-5.0) gm/dl Diagnostic Findings MR abdomen wo/w con HISTORY: R hepatic lobe mass, abnl LFTs TECHNIQUE: Multiplanar multisequence MRI of the abdomen was performed both before and after the intravenous administration of 10 cc of Eovist contrast to evaluate the liver. COMPARISON STUDY: Abdomen and pelvis CT 06/21/2021. Abdominal ultrasound 07/20/2021. Abdominal MRI 11/06/2020. FINDINGS: Small bilateral pleural effusions. The heart remains enlarged. There are poststernotomy changes. Prior cholecystectomy. The spleen is unremarkable. No hydronephrosis. Bilateral perinephric edema is noted. The visualized loops of bowel show no wall thickening or obstruction. There is moderate body wall edema. Small to moderate hiatus hernia is present. Suture material within the anterior abdominal wall from prior surgery. No intra or extrahepatic bile duct dilatation. The main portal vein is patent. The hepatic lesion described in the prior MRIs is no longer visualized. No new hepatic lesions identified. Postoperative changes consistent with prior Whipple procedure. The residual main pancreatic duct remains mildly dilated measuring up to 5 mm. A few scattered cystic lesions within the pancreatic tail are again noted. Dominant lesion m easures 1.5 cm. 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 IMPRESSION: 1. No hepatic lesions identified. 2. Small bilateral pleural effusions and body wall edema. 3. Small to moderate hiatus hernia, unchanged. 4. Prior Whipple procedure and cholecystectomy. 5. 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
[2021-07-24 12:34] LABS: Lyme Ab IgG w/WB Rflx Negative (Negative); Lyme Ab IgM w/WB Rflx Negative (Negative)
[2021-07-24] MEDS ORDERED: GADOBUTROL 65ML VIAL IV ONE (14:34)
--- NOTE | 2021-07-24 15:00 | Magnetic Resonance Report ---
MRI OF THE BRAIN WITHOUT AND WITH IV CONTRAST CLINICAL HISTORY: Progressive myelopathy. COMPARISON STUDY: MRI of the brain June 14, 2016. Head CT July 06, 2021. TECHNIQUE: Utilizing a 1.5 Gloria magnet and dedicated coil, multiplanar, multiecho imaging of the br ain was performed pre and postcontrast administration. IV administration of Gadavist contrast was un eventful. Thin cut T1 post contrast imaging was performed. FINDINGS: There are no foci of restricted diffusion to suggest acute infarct. No acute intracranial h emorrhage, midline shift or mass effect is present. No intracranial mass or pathologic enhancement is present. Flow-voids for the major intracranial vessels are present. An old infarct within the inferi or left cerebellar hemisphere is again noted. White matter T2 hyperintense foci are similar to prior exams and favor small vessel disease. Mild ventricular dilatation is due to central atrophy. Calvaria l signal is within normal limits. Orbits are unremarkable on this nondedicated exam. IMPRESSION: 1. No acute intracranial findings. 2. No intracranial mass or pathologic enhancement. 3. Old left cerebellar infarct. 4. Moderate atrophy and T2 hyperintense foci suggestive of small vessel disease. ACT 112: Negative or not required by law. Electronically signed by: Hammad Aranda M.D. 07/24/2021 2:59 PM
[2021-07-24] MEDS: predniSONE 20 MG TAB PO SCH ×3 (15:06→18:31)
[2021-07-24] MEDS: LIDOCAINE 5% 1 PATCH TD SCH (15:06)
--- NOTE | 2021-07-24 15:09 | Magnetic Resonance Report ---
MRI OF THE CERVICAL SPINE WITH AND WITHOUT CONTRAST CLINICAL HISTORY: Increasing weakness.?myelopathy. COMPARISON: Cervical spine CT June 2021. TECHNIQUE: Utilizing a 1.5 Gloria magnet and dedicated coil, multiplanar, multiecho imaging of the ce rvical spine was performed before and after intravenous administration Gadavist. FINDINGS: Please note that the MRI of the brain will be reported separately. Old infarct within left cerebellar hemisphere is noted. Alignment of the cervical spine is anatomic. Vertebral body heights are [place]. There is no suspicious marrow replacement. There is no cervical spine fracture. Paravertebral so ft tissues are unremarkable. Cervical cord signal and caliber are normal. There is no intracanalicula r mass or fluid collection. There is no abnormal enhancement within the cervical canal. Exam is mildl y compromised by motion artifact although is diagnostic. C2-C3: The central canal and neural foramen are patent. C3-C4: There is moderate disc space narrowing. Posterior disc osteophyte complex contacts the ventra l aspect of the cord. There is moderate central canal stenosis. Moderate left and mild right neural f oraminal stenosis is present. C4-C5: Central posterior disc osteophyte complex indents the ventral aspect of the cord. This result s in severe central canal stenosis. Patent AP diameter of the canal is 3 mm. No associated cord signa l abnormality. Severe right and moderate left neural foraminal stenosis is present. C5-C6: Moderate disc space narrowing is noted. Posterior disc osteophyte complex indents the ventral aspect of the cord. There is moderate central canal stenosis. Moderate bilateral neural foraminal st enosis is present. C6-C7: Posterior disc osteophyte complex contacts the ventral aspect of the cord. There is no signif icant central canal stenosis. There is moderate to severe bilateral neural foraminal stenosis. C7-T1: Central canal and right neural foramen are patent. There is mild left neural foraminal stenos is. IMPRESSION: 1. Severe central canal stenosis at C4-C5 due to posterior disc osteophyte complex. No associated cor d signal abnormality. 2. Moderate central canal stenosis at C3-C4 and C5-C6, as described above. 3. Multilevel neural foraminal stenosis, as described above. 4. Normal cervical cord signal and caliber. 5. No cervical spine fracture. ACT 112: Negative or not required by law. Electronically signed by: Hammad Aranda M.D. 07/24/2021 3:08 PM
[2021-07-24] MEDS: FUROSEMIDE 40 MG TAB PO ONE ×2 (18:17→18:31)
[2021-07-24] MEDS: VANCOMYCIN HCL 750 MG in SODIUM CHLORIDE 0.9% 250 ML IV SCH (18:18)
[2021-07-24] MEDS: DIGOXIN 0.125 MG TAB PO SCH ×2 (18:20→18:31)
[2021-07-24] MEDS: RIVAROXABAN 15 MG TAB PO SCH ×2 (18:20→18:32)
[2021-07-24] MEDS: GABAPENTIN 300 MG CAP PO SCH (20:33)
[2021-07-25 06:47] LABS: Hematocrit (blood only) 32.2 % (37-47); Hemoglobin 10.5 g/dL (12.0-16.0); Mean Corpuscular Hemoglobin 31.8 pg (25-34); Mean Corpuscular Hgb Conc 32.6 g/dL (32-36); Mean Corpuscular Volume 97.6 fL (80-100); Mean Platelet Volume 10.2 fL (7.4-10.4); Platelet Count 332 K/uL (130-400); RDW Coefficient of Variation 15.5 % (11.5-14.5); RDW Standard Deviation 54.6 fL (36.4-46.3); White Blood Count 15.77 K/uL (4.8-10.8)
[2021-07-25 06:54] LABS: INR 1.2 (0.9-1.1); Prothrombin Time 12.1 Seconds (9.0-12.0)
[2021-07-25 07:13] LABS: Albumin Level 2.6 gm/dl (3.4-5.0); BUN Creatinine Ratio 23.1 (10-20); Bilirubin Direct 0.1 mg/dl (0-0.2); Bilirubin,Total 0.5 mg/dl (0.2-1.0); Creatinine Clr Calc Pharmacy 21.3 ml/min; Est GFR (African American) 35.7 ml/min; Est GFR (Non-African American) 30.8 ml/min; Magnesium 1.8 mg/dl (1.7-2.4); Potassium 4.5 mmol/L (3.5-5.1); Total Protein 5.3 gm/dl (6.0-8.3)
[2021-07-25] MEDS ORDERED: FUROSEMIDE 40 MG TAB PO SCH (09:00)
[2021-07-25] MEDS: FOLIC ACID 1 MG in SYRINGE 9.8 ML IV SCH (10:21)
[2021-07-25] MEDS: LIDOCAINE 5% 1 PATCH TD SCH (10:21)
[2021-07-25] MEDS: RANOLAZINE 500 MG ER TAB PO SCH ×2 (10:22→20:50)
[2021-07-25] MEDS: ISOSORBIDE MONO EXTENDED REL 60 MG TABCR PO SCH (10:22)
[2021-07-25] MEDS: METOPROLOL SUCC 50MG EXT REL TAB PO SCH ×2 (10:23→20:49)
[2021-07-25] MEDS: predniSONE 20 MG TAB PO SCH ×2 (10:23→17:13)
[2021-07-25] MEDS: ASPIRIN 81 MG ECTAB PO SCH (10:24)
[2021-07-25] MEDS: prednisoLONE acetate 1% OP SUSP 5 ML BTL OP SCH (10:24)
--- NOTE | 2021-07-25 11:14 | Hospitalist Progress Note ---
Date of Service July 25, 2021 Assessment & Plan (1) Myopathy: Plan: She has had severe weakness at home - essentially cannot stand or walk. SIGNIFICANT, has been progressive. Proximal weakness as well as glove/stocking paresthesias. Diagnosed with adrenal insufficiency as well (prior admits n/v/abd pain/diarrhea) and started on prednisone 20mg PO BID 07/23 as below, and this has made improvements Improvement in UE strength/mobility today, continued LE symptoms ESR/Crp not elevated - myositis unlikely. * --> Checking urine myoglobin CK 2229 --> 1041. (She did have a fall but it was 2-3 weeks ago thus rha bdomyolysis from that fall - this far out - is unlikely.) Lipitor placed on hold (has been on since prior cath) -- since discontinued and checking HMG-CoA antibody --> pending LFTs previously normal, no new meds other than Levaquin for UTI? --> Had been slightly improving but then placed on fluconazole for rasheed in urine * --> held further fluconazole for now. can repeat ua to ensure clearance? (was on ceftriaxone for UTI, since change to complete with Vanco) * --> LFTs improved AST 231-->153, ALT 166--> 137, ALP 168--> 135. Tb wnl * If from lipitor, holding/discontinuing may not help and she may need something like IVIG/rituximab, but will await above and monitor for now and further Neuro recs tomorrow B12 wnl, TSH wnl earlier last month. Lyme Negative. Neuro consulted * Checking MRI brain w/wo as well as cervical spine w/ wo to evaluate for normal pressure hydrocephalus and significant cervical spinal stenosis which could give a myelopathy * --> MRI Brain: no acute findings, no intracranial mass/pathologic enhancement. 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 No associated cord signal abnormality.. Moderate central canal stenosis at C3-C4 and C5-C6, as described above.Multilevel neural foraminal stenosis. Normal cervical cord signal and caliber. No fx * Of note, I did mention prior pt hx of elevated tryptase per allergy/immunology note to Dr Velez and he was going to look further into this. Wonder if related/underlying mast cell disorder Ortho consulted -- case discussed with Dr Thakur , to see today * He reviewed imaging and did feel UE symptoms could be related and multi factorial. Suggested tuning patient up/additional studies as already obtained and if improvement in other symptoms and continued UE weakness can continue to may recommendations if patient is surgical candidate General surgery consulted * plans for muscle biopsy on Monday * Making NPO after midnight (xarelto/plavix held, ok'd with Dr Robins 07/24) and placed on ASA daily for muscle biopsy. Resume as soon as possible post-op Continue PT/OT while inpatient (2) Adrenal insufficiency: Plan: Cosyntropin stim test - failed such. Baseline cortisol was 15, but she had NO rise in cortisol level with 1mcg cosyntropin x 1. This suggests adrenal insufficiency. Adrenal insufficiency would certainly explain her low sugars, dizziness, fatigue, and perhaps even some of her chronic GI complaints. Due to stress of multiple concurrent illnesses will start with higher than typical replacement doses -started prednisone 20mg BID 07/23 Gradually wean to replacement doses (hydrocortisone 15mg am, hydrocortisone 5mg pm -- or prednisone equivalents). --> consider decreasing tomorrow but per discussion with neuro rec'd to continue higher doses for several days to see if helps with weakness --> Improvement of weakness, suggesting a myopathy and will continue 20mg PO BID for now ACTH level -- pending (3) Elevated creatine kinase level: Plan: medication vs autoimmune process? See above statin discontinued no fall/trauma reported continue to trend -- trending down (4) UTI (urinary tract infection): Plan: 2nd to enterococcus - PCN/amp resistant, with albicans Was on Rocephin previously, got 3 doses of fluconazole as above (d/c given LFTs) and changed to Vancomycin IV 07/24 and would plan 7 day course having urinary retention - likely from UTI - saleem placed, UOP acceptable (5) Hypoglycemia: Plan: Suspect combination of very poor oral intake, poor hepatic gluconeogenesis, poor glycogen stores, and now adrenal insufficiency to blame. Should improve/resolve with steroid replacement. Cut Dextrose drip from 20cc/hr to 10cc/hr, since discontinued and no further episodes of hypoglycemia since Continue to monitor (6) Liver mass, right lobe: Plan: she had a bx in 2020 showing focal fibrosis? however, given the LFTs being high, I obtained repeat MRI abdomen/liver this did NOT show any remaining mass? AFP pending (7) Abnormal LFTs: Plan: HOLD STATIN -- discontinued for now, see above Liver anatomically normal on MRI. No biliary tract disease seen. repeat LFTs today still elevated. 2nd to intrinsic liver disease? viral? other? continue to trend them; obtain additional w/u as needed as outlined above (8) Folate deficiency: Plan: cont folic acid 1mg IV daily. plan 30 days of Rx whether IV or PO. 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 repeated level given her ongoing macrocytosis to ensure she does not need replacement again. (10) Macrocytic anemia: Plan: folate def. copper def. both likely contributing. s/p 1 unit PRBCs earlier this admission. improved H/H. follow H/H every 2-3 days for stability. (11) CAD (coronary artery disease): Plan: noted -- CAD s/p CABG x 1 (2015) and s/p SVG to RCA Graft Stent 01/06/21, Anomalous Circumflex Coronary Artery hold Lipitor due to high LFTs cont plavix --HOLDING STARTING 07/23 for muscle biopsy as above, on asa 81mg daily in meantime, resume when able after biopsy cont metoprolol cont ranexa cont imdur some of her chronic STEPHENS/chest tightness could be from CAD, some could be from anemia in setting of CAD (denied those symptoms 07/25) (12) High serum ferritin: Plan: noted has had w/u for this by heme/onc in the past no hemochromatosis based on records (13) Paroxysmal atrial flutter: Plan: and paroxysmal a.fib cont BB cont xarelto once able to be resumed after biopsy (14) Generalized weakness: Plan: likely multifactorial - anemia, UTI, ?concern for malignancy, nutritional deficiencies, concern for myopathy, adrenal insufficiency as above. s/p Tx of 1 unit blood this admission Rx UTI Rx steroid replacement treat/work-up the myopathy as above PT/OT consulted -- likely need rehab. 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 (19) Chronic kidney disease, stage IV (severe): Plan: baseline CrCl 15-30. Baseline cr 1.1-1.[address] Meehan's most recent note bmps have been stable resumed lasix 40mg daily but will hold further for now Admission and Anticipated Discharge Date Admission Date: July 20, 2021 Supervising Physician Co-Signing Physician Notes PA Supervision Note: I did not personally see or examine the patient today, but I verified all solares points of NATHALIA Quevedo's assessment and plan with the following exceptions/additions: None Subjective patient evaluated this morning more alert/oriented and moving around better improvement in b/l UE stregth and able to raise her arms to about the level of her shoulders able to lift legs slightly off bed which she states she couldn't do days prior discussed biopsy tomorrow she saw Dr Thakur this morning given cervical spinal stenosis on imaging and he rec optizmize medically first to see if surgical candidate here She has improvement in appetite. More movement of neck and less discomfort with lidocaine patch but she does report a mild "normal headache" in a patient with history of migraines. Reports more of a pressure sensation. Of note, she follows with Dr Meehan and states her lasix was recently decreased to 20mg daily. She does endorse some memory issues and states she thought she was in the hospital for the past two weeks and has some issues with her memory. She notes this is not overly new and she has had this at home. Questions/concerns addressed. Denies fever, chills, chest pain, further diarrhea. Reports improvement of abdominal pain as well over past two days since initiation of steroids and discussed adrenal insufficiency as well as send out labs and holding of her statin. Review of Systems Review of Systems: All systems reviewed & are unremarkable except as noted in HPI & below Physical Exam Physical Exam: gen - very thin, cachectic appearing, NAD, sitting up in bed talking with RN upon entry mouth - MMM; no thrush neck - no JVD eyes- pupils equal and reactive to light, EOMI intact, normal visual cam by confrontation heart - RR, s1 s2, 1/6 KANWAL LSB, irregular lungs - decreased BS right base, otherwise CTA b/l abd - soft, NT, ND, BS+, no HSM ext - mild edema - about trace-1+ b/l, pulses 2+ b/l psych - a/o x 3 , intermittent confusion with month/year, poor historian skin - ecchymoses and old, scabbed ulcerations on shins; Left shoulder ulceration with scab/healing neuro - significant proximal muscle weakness of hips (same today, flexion is 3- 4/5 at best); distal strength of feet/ankles - dorsiflexion/plantarflexion - 5 /5; handgrip 5/5; proximal muscle weakness of b/l shoulder region although L shoulder has significant rotator cuff issues (muscle wasting noted of the leandra- shoulder muscles) but able to lift arms to the level of the shoulder today, decreased strength against resistance, decreased muscle tone, glove/stocking paresthesia with decreased sensation to pinprick 0/4 reflexes, ?1/4 quad tendon, no clonus or pronator drift appreciated Results & Data Results & Data ([facility]) Vital Signs (Past 12 Hours) Vital Signs Temp Pulse Resp BP Pulse Ox 07/25/21 08:41 36.7 C 79 17 123/69 93 Laboratory Results 07/25/21 07/25/21 07/25/21 Range/Units 11:50 08:19 05:41 WBC (4.8-10.8) K/uL RBC (4.2-5.4) M/uL Hgb (12.0-16.0) g/dL Hct (37-47) % MCV (80-100) fL MCH (25-34) pg MCHC (32-36) g/dL RDW Std Deviation (36.4-46.3) fL RDW Coeff of Argenis (11.5-14.5) % Plt Count (130-400) K/uL MPV (7.4-10.4) fL PT (9.0-12.0) Seconds INR (0.9-1.1) Sodium 136 (136-145) mmol/L Potassium 4.5 (3.5-5.1) mmol/L Chloride 107 (98-107) mmol/L Carbon Dioxide 22 (21-32) mmol/L Anion Gap 7 (3-11) BUN 36 H (6-23) mg/dl Creatinine 1.56 H (0.6-1.2) mg/dl Est Cr Clr Drug Dosing 21.3 ml/min Est GFR ( Amer) 35.7 ml/min Est GFR (Non-Af Amer) 30.8 ml/min BUN/Creatinine Ratio 23.1 H (10-20) Glucose 139 H (70-99(Fasting)) mg/dl POC Glucose 110 H 115 H (70-99) mg/dl Calcium 8.0 L (8.5-10.1) mg/dl Magnesium 1.8 (1.7-2.4) mg/dl Total Bilirubin 0.5 (0.2-1.0) mg/dl Direct Bilirubin 0.1 (0-0.2) mg/dl AST 153 H (13-39) U/L ALT 137 H (7-52) U/L Alkaline Phosphatase 135 H (34-104) U/L Total Creatine Kinase 1041 H (26-192) U/L Total Protein 5.3 L (6.0-8.3) gm/dl Albumin 2.6 L (3.4-5.0) gm/dl 07/25/21 07/25/21 07/24/21 Range/Units 05:41 05:41 20:28 WBC 15.77 H (4.8-10.8) K/uL RBC 3.30 L (4.2-5.4) M/uL Hgb 10.5 L (12.0-16.0) g/dL Hct 32.2 L (37-47) % MCV 97.6 (80-100) fL MCH 31.8 (25-34) pg MCHC 32.6 (32-36) g/dL RDW Std Deviation 54.6 H (36.4-46.3) fL RDW Coeff of Argenis 15.5 H (11.5-14.5) % Plt Count 332 (130-400) K/uL MPV 10.2 (7.4-10.4) fL PT 12.1 H (9.0-12.0) Seconds INR 1.2 H (0.9-1.1) Sodium (136-145) mmol/L Potassium (3.5-5.1) mmol/L Chloride (98-107) mmol/L Carbon Dioxide (21-32) mmol/L Anion Gap (3-11) BUN (6-23) mg/dl Creatinine (0.6-1.2) mg/dl Est Cr Clr Drug Dosing ml/min Est GFR ( Amer) ml/min Est GFR (Non-Af Amer) ml/min BUN/Creatinine Ratio (10-20) Glucose (70-99(Fasting)) mg/dl POC Glucose 156 H (70-99) mg/dl Calcium (8.5-10.1) mg/dl Magnesium (1.7-2.4) mg/dl Total Bilirubin (0.2-1.0) mg/dl Direct Bilirubin (0-0.2) mg/dl AST (13-39) U/L ALT (7-52) U/L Alkaline Phosphatase (34-104) U/L Total Creatine Kinase (26-192) U/L Total Protein (6.0-8.3) gm/dl Albumin (3.4-5.0) gm/dl 07/24/21 Range/Units 16:49 WBC (4.8-10.8) K/uL RBC (4.2-5.4) M/uL Hgb (12.0-16.0) g/dL Hct (37-47) % MCV (80-100) fL MCH (25-34) pg MCHC (32-36) g/dL RDW Std Deviation (36.4-46.3) fL RDW Coeff of Argenis (11.5-14.5) % Plt Count (130-400) K/uL MPV (7.4-10.4) fL PT (9.0-12.0) Seconds INR (0.9-1.1) Sodium (136-145) mmol/L Potassium (3.5-5.1) mmol/L Chloride (98-107) mmol/L Carbon Dioxide (21-32) mmol/L Anion Gap (3-11) BUN (6-23) mg/dl Creatinine (0.6-1.2) mg/dl Est Cr Clr Drug Dosing ml/min Est GFR ( Amer) ml/min Est GFR (Non-Af Amer) ml/min BUN/Creatinine Ratio (10-20) Glucose (70-99(Fasting)) mg/dl POC Glucose 134 H (70-99) mg/dl Calcium (8.5-10.1) mg/dl Magnesium (1.7-2.4) mg/dl Total Bilirubin (0.2-1.0) mg/dl Direct Bilirubin (0-0.2) mg/dl AST (13-39) U/L ALT (7-52) U/L Alkaline Phosphatase (34-104) U/L Total Creatine Kinase (26-192) U/L Total Protein (6.0-8.3) gm/dl Albumin (3.4-5.0) gm/dl Diagnostic Findings Brain MRI 07/24/21 10:18 MRI OF THE BRAIN WITHOUT AND WITH IV CONTRAST CLINICAL HISTORY: Progressive myelopathy. COMPARISON STUDY: MRI of the brain June 14, 2016. Head CT July 06, 2021. TECHNIQUE: Utilizing a 1.5 Gloria magnet and dedicated coil, multiplanar, multiecho imaging of the brain was performed pre and postcontrast administration. IV administration of Gadavist contrast was uneventful. Thin cut T1 post contrast imaging was performed. FINDINGS: There are no foci of restricted diffusion to suggest acute infarct. No acute intracranial hemorrhage, midline shift or mass effect is present. No intracranial mass or pathologic enhancement is present. Flow-voids for the major intracranial vessels are present. An old infarct within the inferior left cerebellar hemisphere is again noted. White matter T2 hyperintense foci are similar to prior exams and favor small vessel disease. Mild ventricular dilatation is due to central atrophy. Calvarial signal is within normal limits. Orbits are unremarkable on this nondedicated exam. IMPRESSION: 1. No acute intracranial findings. 2. No intracranial mass or pathologic enhancement. 3. Old left cerebellar infarct. 4. Moderate atrophy and T2 hyperintense foci suggestive of small vessel disease. ACT 112: Negative or not required by law. Electronically signed by: Hammad Aranda M.D. 07/24/2021 2:59 PM Cervical Spine MRI 07/24/21 10:18 MRI OF THE CERVICAL SPINE WITH AND WITHOUT CONTRAST CLINICAL HISTORY: Increasing weakness.?myelopathy. COMPARISON: Cervical spine CT June 2021. TECHNIQUE: Utilizing a 1.5 Gloria magnet and dedicated coil, multiplanar, multiecho imaging of the cervical spine was performed before and after intravenous administration Gadavist. FINDINGS: Please note that the MRI of the brain will be reported separately. Old infarct within left cerebellar hemisphere is noted. Alignment of the cervical spine is anatomic. Vertebral body heights are maintained. There is no suspicious marrow replacement. There is no cervical spine fracture. Paravertebral soft tissues are unremarkable. Cervical cord signal and caliber are normal. There is no intracanalicular mass or fluid collection. There is no abnormal enhancement within the cervical canal. Exam is mildly compromised by motion artifact although is diagnostic. C2-C3: The central canal and neural foramen are patent. C3-C4: There is moderate disc space narrowing. Posterior disc osteophyte complex contacts the ventral aspect of the cord. There is moderate central canal stenosis. Moderate left and mild right neural foraminal stenosis is present. C4-C5: Central posterior disc osteophyte complex indents the ventral aspect of the cord. This results in severe central canal stenosis. Patent AP diameter of the canal is 3 mm. No associated cord signal abnormality. Severe right and moderate left neural foraminal stenosis is present. C5-C6: Moderate disc space narrowing is noted. Posterior disc osteophyte c omplex indents the ventral aspect of the cord. There is moderate central canal stenosis. Moderate bilateral neural foraminal stenosis is present. C6-C7: Posterior disc osteophyte complex contacts the ventral aspect of the cord. There is no significant central canal stenosis. There is moderate to severe bilateral neural foraminal stenosis. C7-T1: Central canal and right neural foramen are patent. There is mild left neural foraminal stenosis. IMPRESSION: 1. Severe central canal stenosis at C4-C5 due to posterior disc osteophyte complex. No associated cord signal abnormality. 2. Moderate central canal stenosis at C3-C4 and C5-C6, as described above. 3. Multilevel neural foraminal stenosis, as described above. 4. Normal cervical cord signal and caliber. 5. No cervical spine fracture. ACT 112: Negative or not required by law. Electronically signed by: Hammad Aranda M.D. 07/24/2021 3:08 PM PG Care Time/CCT Total # of Minutes Spent Total Time Spent with Patient: Total time spent is greater than 50% in coordination of care (as documented) at patient's floor/unit and/or counseling patient: Coding Level of Care Code 08925 Subseq Hosp Care Lvl 3 Diagnoses Myopathy G72.9 Adrenal insufficiency E27.40 Elevated creatine kinase level R74.8 UTI (urinary tract infection) N39.0 Hypoglycemia E16.2 Liver mass, right lobe R16.0 Abnormal LFTs R79.89 Folate deficiency E53.8 Copper deficiency E61.0 Macrocytic anemia D53.9 CAD (coronary artery disease) I25.10 Associated angina: without angina Coronary Disease-Associated Artery/Lesion type: [place] artery [place] vs. transplanted heart: [place] heart High serum ferritin R79.89 Paroxysmal atrial flutter I48.92 Generalized weakness R53.1 Multiple pulmonary nodules determined by computed tomography of lung R91.8 Severe protein-calorie malnutrition E43 DVT prophylaxis Z29.9 Temporal lobe epilepsy G40.109 Chronic kidney disease, stage IV (severe) N18.4 (1) CAD (coronary artery disease) Associated angina: without angina Coronary Disease-Associated Artery/Lesion type: [place] artery [place] vs. transplanted heart: [place] heart Qualified Code(s): I25.10 - Atherosclerotic heart disease of [place] coronary artery without angina pectoris
--- NOTE | 2021-07-25 11:14 | Orthopedic Consultation ---
Date of Consultation July 25, 2021 Assessment & Plan (1) Cervical stenosis of spinal canal: An MRI of the cervical spine obtained recently does demonstrate severe multilevel cervical spinal stenosis most impressive at C3-C4 C4-C5. I do not appreciate signal change on the sagittal views however the axial views demonstrate significant cord compression and contour change. Her severe cervical spinal stenosis may be creating component of her weakness in the form of cervical myelopathy. However her weakness is clearly multifactorial. Undoubtedly the cervical spine is contributing to some degree. Unfortunately she is not a surgical candidate at this time. We will continue to follow make further conditions. History of Present Illness Reason for Consultation: Bilateral upper extremity and lower extremity weakness Attending Physician: Norma Linton MD History of Present Illness This is an 80-year-old female the presents with marked decline in status. Has significant multiple medical issues. She complains of upper extremity weakness numbness and tingling as well as chronic pain and weakness to bilateral extremities. She denies any precipitating trauma fall or event. Again she is being worked up for multiple medical issues. Allergies Allergy/AdvReac Type Severity Reaction Status Date / Time banana Allergy Unknown HIVES/ITCHI Verified 07/20/21 17:08 NG Iodinated Contrast Media Allergy Unknown "CONTRAST"- Verified 07/20/21 17:08 HIVES/ITCHI NG povidone-iodine Allergy Unknown "drops for Verified 07/20/21 17:08 [From Betadine] eye before injection" - fox/vision trouble soap [From Betadine] Allergy Unknown "drops for Verified 07/20/21 17:08 eye before injection" - fox/vision trouble Home Medications Medication Instructions Recorded Confirmed Type vitamins A,C,O-jdds-tlesnv 7,160 1 tab PO BIDM 07/03/19 07/20/21 History unit-113 mg-100 unit tablet (PreserVision AREDS) gabapentin 300 mg capsule 900 mg PO HS 90 Days #270 cap 08/26/20 07/20/21 Rx atorvastatin 40 mg tablet (Lipitor) 40 mg PO HS #90 tab 08/28/20 07/20/21 Rx potassium chloride 8 mEq 16 meq PO QAM 09/08/20 07/20/21 History tablet,extended release ubrogepant 100 mg tablet (Ubrelvy) 100 mg PO DAILY PRN 12/09/20 07/20/21 History nitroglycerin 0.4 mg sublingual 0.4 mg SUBLINGUAL UD PRN #25 tab 01/04/21 07/20/21 Rx tablet clopidogrel 75 mg tablet 75 mg PO QAM #30 tab 01/09/21 07/20/21 Rx prednisolone acetate 1 % eye 1 drp OPR QAM ml 03/24/21 07/20/21 History drops,suspension ranolazine 500 mg tablet,extended 500 mg PO BID #60 tab 04/05/21 07/20/21 Rx release,12 hr (Ranexa) furosemide 40 mg tablet (Lasix) 40 mg PO QAM #90 tab 04/07/21 07/20/21 Rx Oxygen Home #1 ea 04/21/21 07/20/21 Rx cyanocobalamin (vitamin B-12) 0 mcg IM MONTHLY 05/15/21 07/20/21 History 1,000 mcg/mL injection solution isosorbide mononitrate 120 mg 240 mg PO QAM tab 06/18/21 07/20/21 History tablet,extended release 24 hr calcitriol 0.25 mcg capsule 0.25 mcg PO 3XWK #36 cap 06/23/21 07/20/21 Rx aflibercept 2 mg/0.05 mL 1 mg INTRAVITREAL MONTHLY 07/06/21 07/20/21 History intravitreal syringe (Eylea) digoxin 125 mcg (0.125 mg) tablet 125 mcg PO Q2D 07/06/21 07/20/21 History epinephrine 0.3 mg/0.3 mL 0.3 mg SUBCUT UD PRN 07/06/21 07/20/21 History injection, auto-injector hydrocodone 5 mg-acetaminophen 325 1 tab PO Q6H PRN 07/06/21 07/20/21 History mg tablet rivaroxaban 15 mg tablet (Xarelto) 15 mg PO .AFTER DINNER 07/06/21 07/20/21 History glucose 4 gram chewable tablet 4 g PO Q15M PRN #10 tab 07/14/21 07/20/21 Rx (Dex4 Glucose) metoprolol succinate 200 mg See Rx Instructions .ROUTE 07/15/21 07/20/21 Rx tablet,extended release 24 hr .COMPLEX #135 tab Patient History Medical History Benign essential tremor CAD (coronary artery disease) CABG x 1 vessel 2015 Cerebellar infarct Follows with neuro= "Prior cerebellar stroke without residual deficits" - continue ASA and statin Chronic diastolic congestive heart failure Chronic hypoxemic respiratory failure Chronic low back pain Copper deficiency Corneal dystrophy CVA (cerebral vascular accident) NO RESIDUAL AT AGE 50 Diabetes Endothelial corneal dystrophy Family history of reaction to anesthesia SISTER - HIVES, N/V GERD (gastroesophageal reflux disease) History of cardioversion 1978 & AUGUST 2020 History of CO (myocardial infarction) 1978 History of vertigo Hyperlipemia Hypertension Intrahepatic cholangiocarcinoma Liver cancer DX AUGUST 2020 - [facility] Liver mass DX JULY 2020 Macular degeneration Mitral regurgitation Mild to moderate per 2019 ECHO Multiple pulmonary nodules determined by computed tomography of lung Osteoporosis Osteoporosis with fracture fx ribs from falling, NO CURRENT FRACTURES Pancreatic tumor had surgery removal of head Paroxysmal atrial fibrillation and flutter--On Xarelto , DX 2018 - HX CARDIOVERSION AUGUST 2020 Peripheral neuropathy Pulmonary hypertension PASP 30-40mmHg Pulmonary nodule monitored yearly Sleep apnea Spondylosis Temporal lobe epilepsy Follows with neuro Started on Keppra in Spring 2019 with no further events since that time Continue Keppra per 08/10/20 neuro note Weakness Surgical History Gastric bypass status for obesity H/O abdominoplasty WITH NECK REPAIRED WELL H/O cataract extraction right and left H/O ovarian cystectomy H/O thumb surgery left and right H/O Whipple procedure History of appendectomy History of breast biopsy several both sides History of corneal transplant right eye History of ear surgery 1967, LEFT History of liver biopsy History of resection of pancreas head of pancreas removed 2009 History of total right hip replacement History of transmyocardial revascularization Hx of cardiac cath 2013, AUGUST 2015, october 2020, november 2020 Hx of cholecystectomy S/P CABG (coronary artery bypass graft) 2015 S/P cholecystectomy S/P tonsillectomy and adenoidectomy S/P trigger finger release left thumb x3, one surgery on right Status post right knee replacement Family History Sister Breast cancer 2 sisters Diabetes 2 sisters Heart disease Cancer 2 sisters Father , age 64 of an CO Myocardial infarction Heart disease Hypertension Brother Myocardial infarction Diabetes Heart disease 2 brothers Hypertension Mother , age 92 of a stroke Non-Hodgkin lymphoma Stroke Cancer Grandfather Diabetes Heart disease Denies family history of Ovarian cancer Prostate cancer Colorectal cancer Social History Smoking Status: Former smoker Age Started Using Tobacco: 16; Age Quit Using Tobacco: 50; packs per day: 1.5; Cigarettes Per Day: 30; Second Hand Exposure: No; Do You Dip or Chew Tobacco: No; Tobacco Cessation Education Requested by Patient: No Hx Alcohol Use: No Hx Substance Use: No Preferred Language: Yakut Communication Ability: Effective Visual Impairment: Limited Hearing Ability: Normal Senior Php Web Developer Required: No Beliefs That Will Affect Care: None marital status: / Current Living Situation: Alone Current Living Situation Comment: 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 current occupational status: retired Other Information That Helps Us Care for You: No Feels Safe at Home: Yes Safety Concerns: Feels Safe At This Time Childhood Exposure to Second-Hand Smoke: No caffeine: No during the past year weight has: decreased > 10 lbs Dental Care, Regularly: Yes Physical Activity Frequency: Does not Exercise Seatbelt Use: always Sunscreen Use: Yes Do you think of yourself as: straight/heterosexual Gender Identity: Female Assistive Devices: Glasses Physical Exam Physical Exam: On exam this time she is alert and oriented and quite cooperative. She does demonstrate global weakness to the upper and lower extremities sensory appears to be intact. Deep tendon reflexes are diminished. There is no evidence of Gloria sign to the upper extremities. Unable to elic it Lhermitte's phenomenon. Results & Data ([facility]) Vital Signs (Past 12 Hours) Vital Signs Temp Pulse Resp BP Pulse Ox 07/25/21 08:41 36.7 C 79 17 123/69 93
[2021-07-25] MEDS ORDERED: PROCHLORPERAZINE 5 MG in SYRINGE 4 ML IV ONE (11:30)
--- NOTE | 2021-07-25 15:18 | Surgery Progress Note ---
Date of Service July 25, 2021 Assessment & Plan (1) Weakness: Plan: pt is a 80 year-old female who was admitted to hospital with weakness, consult for muscle biopsy, Plan, I recommend to do right upper leg muscle biopsy under sedation + local anesthesia on 07/26/2021, D/W benefits, risks and alternatives of the surgery, the risks - infection, bleeding, hematoma, pt and her son ( Isidro Quezada [phone]) they understood, they agree with the surgery, pt signed informed consent, I answered all questions, Hold plavix and Xarelto for 07/25/21 and 07/26/21, start ASA 81 mg po once a day, please D/W with technical director for this plan, NPO after MN on 07/25/2021 , repeat labs PT, INR, PTT on morning 07/26/2021, will F/U, 07/25/2021 3:17PM Dr. ramirez pt will have right upper leg muscle biopsy tomorrow, pt understood, I answered all questions, Admission and Anticipated Discharge Date Admission Date: July 20, 2021 Supervising Physician Co-Signing Physician Notes Patient seen and examined, chart reviewed, case discussed with Dr. Salinas and I agree with the assessment and plan as above. In brief, patient is an 80yo female with multiple medical comorbidities presenting with reports of episodic hypoglycemia - BSG to 30's in AM as well as diffuse weakness. Patient does not take any medications for blood sugar control. Hypokalemia, hypomagnesemia as well. On exam she is afebrile, HD stable, nontoxic in appearance Skin - dressings in place on bilateral LE, decubitus not personally visualized HEENT - NC/AT, PERRL, MMM, Neck supple Heart - +S1/S2, regular, Lungs - CTA Abd - +BS, soft, NT/ND Ext - +edema Labs and images reviewed Assessment/plan -trend bsg. Check LFTs, Liver US and INR to assess liver function -?medication effects- BB contributing to hypoglycemia -Check random cortisol -Electrolyte repletion -Monitor urinary output -Remainder as above Subjective patient evaluated this morning more alert/oriented and moving around better improvement in b/l UE stregth and able to raise her arms to about the level of her shoulders able to lift legs slightly off bed which she states she couldn't do days prior discussed biopsy tomorrow she saw Dr Thakur this morning given cervical spinal stenosis on imaging and he rec optizmize medically first to see if surgical candidate here She has improvement in appetite. More movement of neck and less discomfort with lidocaine patch but she does report a mild "normal headache" in a patient with history of migraines. Reports more of a pressure sensation. Of note, she follows with Dr Meehan and states her lasix was recently decreased to 20mg daily. She does endorse some memory issues and states she thought she was in the hospital for the past two weeks and has some issues with her memory. She notes this is not overly new and she has had this at home. Questions/concerns addressed. Denies fever, chills, chest pain, further diarrhea. Reports improvement of abdominal pain as well over past two days since initiation of steroids and discussed adrenal insufficiency as well as send out labs and holding of her statin. 07/25/2021 3:16Pm Dr. Ramirez pt is stable, no fever, Physical Exam Constitutional: WD/WN, vitals as above Eyes: PERRL, conjunctivae normal, anicteric sclerae Neck: trachea midline, no thyromegaly Respiratory: normal respiratory effort, lungs clear to auscultation Cardiovascular: RRR, no murmur, no edema Gastrointestinal (Abdomen): normal bowel sounds, soft, nontender, no hepatosplenomegaly Neurologic: patellar DTR's 2+ bilat, sensation intact Psychiatric: A+Ox3, euthymic affect Results & Data ([facility]) Vital Signs (Past 12 Hours) Vital Signs Temp Pulse Resp BP Pulse Ox 07/25/21 08:41 36.7 C 79 17 123/69 93 Laboratory Results Abnormal lab results 07/24/21 07/24/21 07/25/21 Range/Units 16:49 20:28 05:41 WBC 15.77 H (4.8-10.8) K/uL RBC 3.30 L (4.2-5.4) M/uL Hgb 10.5 L (12.0-16.0) g/dL Hct 32.2 L (37-47) % RDW Std Deviation 54.6 H (36.4-46.3) fL RDW Coeff of Argenis 15.5 H (11.5-14.5) % PT (9.0-12.0) Seconds INR (0.9-1.1) BUN (6-23) mg/dl Creatinine (0.6-1.2) mg/dl BUN/Creatinine Ratio (10-20) Glucose (70-99(Fasting)) mg/dl POC Glucose 134 H 156 H (70-99) mg/dl Calcium (8.5-10.1) mg/dl AST (13-39) U/L ALT (7-52) U/L Alkaline Phosphatase (34-104) U/L Total Creatine Kinase (26-192) U/L Total Protein (6.0-8.3) gm/dl Albumin (3.4-5.0) gm/dl 07/25/21 07/25/21 07/25/21 Range/Units 05:41 05:41 08:19 WBC (4.8-10.8) K/uL RBC (4.2-5.4) M/uL Hgb (12.0-16.0) g/dL Hct (37-47) % RDW Std Deviation (36.4-46.3) fL RDW Coeff of Argenis (11.5-14.5) % PT 12.1 H (9.0-12.0) Seconds INR 1.2 H (0.9-1.1) BUN 36 H (6-23) mg/dl Creatinine 1.56 H (0.6-1.2) mg/dl BUN/Creatinine Ratio 23.1 H (10-20) Glucose 139 H (70-99(Fasting)) mg/dl POC Glucose 115 H (70-99) mg/dl Calcium 8.0 L (8.5-10.1) mg/dl AST 153 H (13-39) U/L ALT 137 H (7-52) U/L Alkaline Phosphatase 135 H (34-104) U/L Total Creatine Kinase 1041 H (26-192) U/L Total Protein 5.3 L (6.0-8.3) gm/dl Albumin 2.6 L (3.4-5.0) gm/dl 07/25/21 Range/Units 11:50 WBC (4.8-10.8) K/uL RBC (4.2-5.4) M/uL Hgb (12.0-16.0) g/dL Hct (37-47) % RDW Std Deviation (36.4-46.3) fL RDW Coeff of Argenis (11.5-14.5) % PT (9.0-12.0) Seconds INR (0.9-1.1) BUN (6-23) mg/dl Creatinine (0.6-1.2) mg/dl BUN/Creatinine Ratio (10-20) Glucose (70-99(Fasting)) mg/dl POC Glucose 110 H (70-99) mg/dl Calcium (8.5-10.1) mg/dl AST (13-39) U/L ALT (7-52) U/L Alkaline Phosphatase (34-104) U/L Total Creatine Kinase (26-192) U/L Total Protein (6.0-8.3) gm/dl Albumin (3.4-5.0) gm/dl
[2021-07-25] MEDS: VANCOMYCIN HCL 750 MG in SODIUM CHLORIDE 0.9% 250 ML IV SCH (15:42)
[2021-07-25] MEDS: GABAPENTIN 300 MG CAP PO SCH (20:48)
[2021-07-25] MEDS: LACTATED RINGER'S 1,000 ML IV SCH (23:44)
[2021-07-26 07:40] LABS: Albumin Level 2.4 gm/dl (3.4-5.0); Bilirubin,Total 0.4 mg/dl (0.2-1.0); Calcium 7.4 mg/dl (8.5-10.1); Creatinine Clr Calc Pharmacy 20.9 ml/min; Est GFR (African American) 34.9 ml/min; Est GFR (Non-African American) 30.1 ml/min; Magnesium 1.7 mg/dl (1.7-2.4); Potassium 4.6 mmol/L (3.5-5.1); Total Protein 4.7 gm/dl (6.0-8.3)
[2021-07-26] MEDS ORDERED: FUROSEMIDE 20 MG TAB PO SCH (09:00)
[2021-07-26] MEDS: RANOLAZINE 500 MG ER TAB PO SCH ×2 (09:23→20:57)
[2021-07-26] MEDS: predniSONE 20 MG TAB PO SCH ×2 (09:24→16:43)
[2021-07-26] MEDS: ISOSORBIDE MONO EXTENDED REL 60 MG TABCR PO SCH (09:24)
[2021-07-26] MEDS: METOPROLOL SUCC 50MG EXT REL TAB PO SCH ×2 (09:24→20:57)
[2021-07-26] MEDS: ASPIRIN 81 MG ECTAB PO SCH (09:24)
[2021-07-26] MEDS: FOLIC ACID 1 MG in SYRINGE 9.8 ML IV SCH (09:24)
[2021-07-26] MEDS: LIDOCAINE 5% 1 PATCH TD SCH (09:25)
[2021-07-26] MEDS: prednisoLONE acetate 1% OP SUSP 5 ML BTL OP SCH (09:25)
--- NOTE | 2021-07-26 09:34 | Neurology Progress Note ---
Date of Service July 26, 2021 Assessment & Plan (1) Rapidly progressive weakness: (2) Myopathy: (3) Elevated creatine kinase level: (4) Idiopathic polyneuropathy: (5) Cervical spine pain: (6) Lumbar spine pain: (7) Memory deficits: Plan: This is a very complicated patient neurologically and I am concerned with her rapid progression of weakness and recent laboratory changes. Clinically, she displays a proximal weakness pattern consistent with myopathy. she is slightly improved with her core strength and proximal strength in the arms and legs compared to 2 days ago. The most obvious etiology would be the statin Lipitor, which she has been on for almost 8 months. Interestingly, she did not have an elevated CK, CRP, or liver enzymes in May during her last hospitalization. In addition to the more typical myalgias, weakness, elevated CK and myopathy that statins can produce, Lipitor can also cause a rare autoimmune myopathy that could give a clinical picture like this. certainly, another etiology to her myopathy including a typical myositis is possible also. In addition, she has a severe cervical spinal stenosis from C3 through C6 with probable cord compression. Although she does not show any obvious upper motor neuron signs on exam I am concerned that cord compression could be contributing to weakness in the extremities. She does have some incontinence of urine and falls frequently. She has evidence of a polyneuropathy involving predominantly sensory fibers of uncertain etiology. The presence of polyneuropathy could mask upper motor neuron signs. 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 Certainly, significant anemia, urinary tract infections, hypoglycemia, and adrenal insufficiency could also add to her weakness and debilitation. The history of copper deficiency in the past is interesting. Fluconazole, could have been causing the increased liver function tests Patient had a CT scan of the cervical spine on July 06 which showed no change in 1.6 centimeter ground-glass nodule in the left lung apex. A CT scan of the chest that day did not mention this lesion. Recommendations: 1. keep off all statins and fluconazole. 2. Anti HMGCR antibody, urine myoglobin, and serum copper are pending 3. check B12 and folate, if not done recently. 4. physical and occupational therapy , increasing activity as able 5. patient is going for a muscle biopsy today. 6. EMG nerve conduction studies of 1 arm and leg as an outpatient. Unfortunately, we cannot do this is an inpatient currently. 7. Continue steroids to treat the weakness. if this is proven autoimmune myopathy, we then could consider IVIG or other immune suppressive treatments 8. Follow up on possible left upper lobe lesion. Overall, I spent a total of 45 minutes with this case including review of record s, Review of MRI films, direct evaluation the patient bedside, and discussion of the case with the patient and RN at bedside, Dr. Linton, and Angelica Ruvalcaba PA-C, including differential diagnosis and treatment options. Admission and Anticipated Discharge Date Admission Date: July 20, 2021 Subjective patient is doing fairly well without significant pain or headache. Interestingly, she did not remember me coming to visit her on July 24. She is not dizzy. Laboratory studies today revealed improving LFTs (AST 102, ALT 110, alk-phos 115). CK is lower by almost 50 percent, compared to yesterday, at 560. Calcium is still low at 7.4. Glucose is 147. BUN and creatinine elevated. MRI of the brain revealed some mild to moderate atrophy and moderate old small- vessel ischemic disease with old left cerebellar stroke. There were no acute findings. I reviewed these films. MRI of the cervical spine showed significant spinal stenosis at C3-4 and C4-5 with some cord compression. She was seen by Dr. Thakur who felt that a surgical procedure would be warranted once she is medically stable. Blood pressure is 131/66 and she is afebrile. Results & Data ([facility]) Vital Signs (Past 12 Hours) Vital Signs Temp Pulse Pulse Resp BP BP Pulse Ox 07/26/21 07:50 36.9 C 78 16 131/66 97 07/25/21 22:43 36.4 C L 54 L 16 145/67 H 95 Exam (Neuro) Physical Exam: She is awake and alert. Speech is without obvious a facial dysarthria. Mood is reasonable affect is appropriate. A believe she has some short-term memory issues. ally and 5/5 distally. Extraocular eye muscles are intact without nystagmus. Pupils are 4 millimeters bilaterally reactive to light. There is no facial droop. Tongue is midline and has reasonable strength bilaterally. Neck strength is 4 /5. Arm strength is 4-/ 5 proximally and 4+/5 distally. She has some atrophy in the small muscles of the hands. Leg strength is 4-/ 5 proximally, and 5/5 distally bilaterally. Reflexes are trace in the brachioradialis and biceps tendons bilaterally. Triceps, quadriceps, and Achilles tendon reflexes are absent bilaterally. Toes are equivocal but appear downgoing to plantar stimulation bilaterally. She has a stocking decreased pinprick loss to just below the knees bilaterally. PG Care Time/CCT Total # of Minutes Spent Total Time Spent with Patient: Total time spent is greater than 50% in coordination of care (as documented) at patient's floor/unit and/or counseling patient: Coding Level of Care Code 07156 Subseq Hosp Care Lvl 3 Diagnoses Rapidly progressive weakness R53.1 Myopathy G72.9 Elevated creatine kinase level R74.8 Idiopathic polyneuropathy G60.9 Cervical spine pain M54.2 Lumbar spine pain M54.50 Memory deficits R41.3 Time Spent (min) 45
--- NOTE | 2021-07-26 11:04 | Anesthesiology Consultation ---
Date of Service July 26, 2021 Assessment & Plan Chart Review Chart Review: Acceptable Risk for Surgery Consults Requested none History Surgery Operation Date: 07/26/21 07:00 Proposed Procedures p Right Leg Muscle Biopsy - Cam Dickens MD Height/Weight Height: 5 ft 1 in Weight: 51.2 kg Allergies Allergy/AdvReac Type Severity Reaction Status Date / Time banana Allergy Unknown HIVES/ITCHI Verified 07/20/21 17:08 NG Iodinated Contrast Media Allergy Unknown "CONTRAST"- Verified 07/20/21 17:08 HIVES/ITCHI NG povidone-iodine Allergy Unknown "drops for Verified 07/20/21 17:08 [From Betadine] eye before injection" - fox/vision trouble soap [From Betadine] Allergy Unknown "drops for Verified 07/20/21 17:08 eye before injection" - fox/vision trouble Medications Home Medications Medication Instructions Recorded Confirmed Last Taken vitamins A,C,C-bxis-sixpos 7,160 1 tab PO BIDM 07/03/19 07/20/21 07/03/21 unit-113 mg-100 unit tablet (PreserVision AREDS) gabapentin 300 mg capsule 900 mg PO HS 90 Days #270 cap 08/26/20 07/20/21 atorvastatin 40 mg tablet (Lipitor) 40 mg PO HS #90 tab 08/28/20 07/20/21 07/03/21 potassium chloride 8 mEq 16 meq PO QAM 09/08/20 07/20/21 07/03/21 tablet,extended release ubrogepant 100 mg tablet (Ubrelvy) 100 mg PO DAILY PRN 12/09/20 07/20/21 03/13/21 nitroglycerin 0.4 mg sublingual 0.4 mg SUBLINGUAL UD PRN #25 tab 01/04/21 07/20/21 03/13/21 tablet clopidogrel 75 mg tablet 75 mg PO QAM #30 tab 01/09/21 07/20/21 07/03/21 prednisolone acetate 1 % eye 1 drp OPR QAM ml 03/24/21 07/20/21 07/03/21 drops,suspension ranolazine 500 mg tablet,extended 500 mg PO BID #60 tab 04/05/21 07/20/21 07/03/21 release,12 hr (Ranexa) furosemide 40 mg tablet (Lasix) 40 mg PO QAM #90 tab 04/07/21 07/20/21 07/20/21 Oxygen Home #1 ea 04/21/21 07/20/21 Unknown cyanocobalamin (vitamin B-12) 0 mcg IM MONTHLY 05/15/21 07/20/21 Unknown 1,000 mcg/mL injection solution isosorbide mononitrate 120 mg 240 mg PO QAM tab 06/18/21 07/20/21 07/03/21 tablet,extended release 24 hr calcitriol 0.25 mcg capsule 0.25 mcg PO 3XWK #36 cap 06/23/21 07/20/21 07/02/21 aflibercept 2 mg/0.05 mL 1 mg INTRAVITREAL MONTHLY 07/06/21 07/20/21 06/09/21 intravitreal syringe (Eylea) digoxin 125 mcg (0.125 mg) tablet 125 mcg PO Q2D 07/06/21 07/20/21 07/05/21 epinephrine 0.3 mg/0.3 mL 0.3 mg SUBCUT UD PRN 07/06/21 07/20/21 Unknown injection, auto-injector hydrocodone 5 mg-acetaminophen 325 1 tab PO Q6H PRN 07/06/21 07/20/21 07/05/21 mg tablet rivaroxaban 15 mg tablet (Xarelto) 15 mg PO .AFTER DINNER 07/06/21 07/20/21 07/03/21 glucose 4 gram chewable tablet 4 g PO Q15M PRN #10 tab 07/14/21 07/20/21 Unknown (Dex4 Glucose) metoprolol succinate 200 mg See Rx Instructions .ROUTE 07/15/21 07/20/21 Unknown tablet,extended release 24 hr .COMPLEX #135 tab Active Medications Generic Name Dose Route Start Last Admin Trade Name Freq PRN Reason Stop Dose Admin Aspirin 81 mg 07/25/21 09:00 07/26/21 09:24 Aspirin 81 Mg Ectab PO 08/24/21 08:59 81 mg QAM HOMAR Administration Calcitriol 0.25 mcg 07/21/21 18:00 07/23/21 17:02 Calcitriol 0.25 Mcg Capsule PO 08/20/21 17:59 0.25 mcg MoWeFr@1800 [facility] Administration Clopidogrel Bisulfate 75 mg 07/21/21 09:00 07/24/21 09:45 Clopidogrel Bisulfate 75 Mg Tab PO 08/20/21 08:59 75 mg QAM HOMAR Administration Digoxin 0.125 mg 07/20/21 23:00 07/24/21 18:31 Digoxin 0.125 Mg Tab PO 08/19/21 22:59 Not Given Q2D@1600 [facility] Fluconazole 100 mg 07/22/21 12:30 07/24/21 09:45 Fluconazole 100 Mg Tab PO 07/28/21 12:29 100 mg DAILY HOM[facility] Administration Gabapentin 900 mg 07/20/21 22:25 07/25/21 20:48 Gabapentin 300 Mg Cap PO 08/19/21 22:24 900 mg HS [facility]OMAR Administration Folic Acid 1 mg/ Syringe 10 mls @ 5 mls/min 07/22/21 09:00 07/26/21 09:24 IV 08/21/21 08:59 5 mls/min QAM HOMAR Administration Vancomycin HCl 750 mg/ Sodium 265 mls @ 200 mls/hr 07/24/21 16:00 07/25/21 17:12 Chloride IV 07/30/21 15:59 Infused Q24H [facility] Infusion Protocol Lactated Ringer's 1,000 mls @ 80 mls/hr 07/25/21 23:30 07/26/21 10:37 Lr IV 08/24/21 23:29 0 mls/hr .[id number] [facility] Infusion Isosorbide Mononitrate 240 mg 07/21/21 09:00 07/26/21 09:24 Isosorbide Ransom Extended Rel 60 Mg Tabcr PO 08/20/21 08:59 240 mg QAM [facility]OM[facility] Administration Lidocaine 1 patch 07/24/21 13:00 07/26/21 09:25 Lidocaine 5% 1 Patch TD 08/23/21 12:59 1 patch QAM [facility] Administration Metoprolol Succinate 200 mg 07/21/21 09:00 07/26/21 09:24 Metoprolol Succ 50mg Ext Rel Tab PO 08/20/21 08:59 200 mg QAM [facility] Administration Metoprolol Succinate 100 mg 07/20/21 23:00 07/25/21 20:49 Metoprolol Succ 50mg Ext Rel Tab PO 08/19/21 22:59 100 mg QPM [facility] Administration Miscellaneous 1 ea 07/24/21 21:00 02/27/22 20:52 Remove Lidoderm Patch N/A 08/23/21 20:59 1 ea DAILY@2100 [facility] Administration Prednisolone Acetate 1 drops 07/21/21 09:00 07/26/21 09:25 Prednisolone Acetate 1% Op Susp 5 Ml Btl OP 08/20/21 08:59 1 drops QAM [facility] Administration Prednisone 20 mg 07/23/21 17:00 07/26/21 09:24 Prednisone 20 Mg Tab PO 08/22/21 16:59 20 mg BID17 [facility] Administration Ranolazine 500 mg 07/20/21 22:25 07/26/21 09:23 Ranolazine 500 Mg Er Tab PO 08/19/21 22:24 500 mg BID [facility] Administration Rivaroxaban 15 mg 07/20/21 22:25 07/24/21 18:32 Rivaroxaban 15 Mg Tab PO 08/19/21 22:24 Not Given DAILY@1800 [facility] NPO Date Last Intake of Fluids: 07/25/21 Time Last Intake of Fluids: 22:00 Date Last Intake of Solids: 07/25/21 Time Last Intake of Solids: 18:00 Past Medical History Medical History Benign essential tremor CAD (coronary artery disease) CABG x 1 vessel 2016 Cerebellar infarct Follows with neuro= "Prior cerebellar stroke without residual deficits" - continue ASA and statin Chronic diastolic congestive heart failure Chronic hypoxemic respiratory failure Chronic low back pain Copper deficiency Corneal dystrophy CVA (cerebral vascular accident) NO RESIDUAL AT AGE 50 Diabetes Endothelial corneal dystrophy Family history of reaction to anesthesia SISTER - HIVES, N/V GERD (gastroesophageal reflux disease) History of cardioversion 1978 & AUGUST 2020 History of OH (myocardial infarction) 1978 History of vertigo Hyperlipemia Hypertension Intrahepatic cholangiocarcinoma Liver cancer DX AUGUST 2020 - [facility] Liver mass DX JULY 2020 Macular degeneration Mitral regurgitation Mild to moderate per 2019 ECHO Multiple pulmonary nodules determined by computed tomography of lung Osteoporosis Osteoporosis with fracture fx ribs from falling, NO CURRENT FRACTURES Pancreatic tumor had surgery removal of head Paroxysmal atrial fibrillation and flutter--On Xarelto , DX 2018 - HX CARDIOVERSION AUGUST 2020 Peripheral neuropathy Pulmonary hypertension PASP 30-40mmHg Pulmonary nodule monitored yearly Sleep apnea Spondylosis Temporal lobe epilepsy Follows with neuro Started on Keppra in Spring 2019 with no further events since that time Continue Keppra per 08/10/20 neuro note Weakness Past Family History Family History Sister Breast cancer 2 sisters Diabetes 2 sisters Heart disease Cancer 2 sisters Father , age 64 of an [place] Myocardial infarction Heart disease Hypertension Brother Myocardial infarction Diabetes Heart disease 2 brothers Hypertension Mother , age 92 of a stroke Non-Hodgkin lymphoma Stroke Cancer Grandfather Diabetes Heart disease Denies family history of Ovarian cancer Prostate cancer Colorectal cancer Past Surgical History Surgical History Gastric bypass status for obesity H/O abdominoplasty WITH NECK REPAIRED WELL H/O cataract extraction right and left H/O ovarian cystectomy H/O thumb surgery left and right H/O Whipple procedure History of appendectomy History of breast biopsy several both sides History of corneal transplant right eye History of ear surgery 1967, LEFT History of liver biopsy History of resection of pancreas head of pancreas removed 2009 History of total right hip replacement History of transmyocardial revascularization Hx of cardiac cath 2013, AUGUST 2015, october 2020, november 2020 Hx of cholecystectomy S/P CABG (coronary artery bypass graft) 2016 S/P cholecystectomy S/P tonsillectomy and adenoidectomy S/P trigger finger release left thumb x3, one surgery on right Status post right knee replacement Social History Smoking Status: Former smoker tobacco type: cigarettes Smoking cigarettes per day: 30 Do You Dip or Chew Tobacco: No Hx Alcohol Use: No Alcohol type: wine alcohol intake frequency: other Alcohol Intake Frequency Comment: rarely Hx Substance Use: No substance use type: does not use Physical Exam Vital Signs Last Vital Signs Temp 36.9 C 07/26/21 10:55 Pulse 66 07/26/21 10:55 Resp 18 07/26/21 10:55 BP 136/66 07/26/21 10:55 Pulse Ox 99 07/26/21 10:55 Testing Laboratory Results 07/25/21 05:41 07/26/21 05:23 PT 12.1 Seconds (9.0-12.0) H 07/25/21 05:41 INR 1.2 (0.9-1.1) H 07/25/21 05:41 Hemoglobin A1c 5.0 % (4.5-5.6) 07/21/21 06:03 Urine Color Yellow 07/20/21 21:03 Urine Appearance Cloudy (Clear) A 07/20/21 21:03 Urine pH 5.0 (4.5-7.5) 07/20/21 21:03 Ur Specific [place] 1.011 (1.000-1.030) 07/20/21 21:03 Urine Protein Trace (Negative) H 07/20/21 21:03 Urine Glucose (UA) Negative (Negative) 07/20/21 21:03 Urine Ketones Negative (Negative) 07/20/21 21:03 Urine Nitrite Negative (Negative) 07/20/21 21:03 Ur Leukocyte Esterase 2+ (Negative) H 07/20/21 21:03 Urine WBC (Auto) >30 /hpf (0-5) H 07/20/21 21:03 Urine RBC (Auto) 10-30 /hpf (0-4) H 07/20/21 21:03 U Hyaline Cast (Auto) 1-5 /lpf (0-5) 07/20/21 21:03 U Epithel Cells (Auto) 20-30 /lpf (0-5) H 07/20/21 21:03 Urine Bacteria (Auto) 1+ (Negative) H 07/20/21 21:03 Blood Type A Negative 07/21/21 14:50 Antibody Screen NEGATIVE 07/21/21 14:50 07/20/21 21:03 Urine Culture - Final Urine,Clean Catch Enterococcus faecium Jennifer albicans/dubliniensis 07/26/21 05:54 POC Glucose 145 H
[2021-07-26] MEDS ORDERED: PROPOFOL IV EMULSION 10 MG/ML 20 ML VIAL IV ONE (11:21)
[2021-07-26] MEDS ORDERED: fentaNYL citrate 100 MCG/2 ML VIAL ONE (11:21)
[2021-07-26] MEDS ORDERED: LIDOCAINE 2% 2 ML VIAL/AMP(20MG/ML) INFIL ONE (11:21)
[2021-07-26] MEDS ORDERED: MIDAZOLAM HCL 1 MG/ML 2ML VIAL ONE (11:21)
--- NOTE | 2021-07-26 11:36 | History & Physical Bridge Note ---
Date of Service July 26, 2021 History & Physical Bridge Note I have examined the patient, reviewed the History & Physical and in the interval since the performance of the History & Physical I have noted the following changes of clinical significance: no changes noted Supervising Physician Co-Signing Physician Notes PA Supervision Note: I did not personally see or examine the patient today, but I verified all solares points of NATHALIA Quevedo's assessment and plan with the following exceptions/additions: None
[2021-07-26] MEDS ORDERED: LIDOCAINE 1% LOCAL 20 ML VIAL ONE (11:51)
[2021-07-26] MEDS ORDERED: BUPIVACAINE 0.5 % 5 MG/1 ML MPF 30ML VIAL ONE (12:05)
[2021-07-26] MEDS ORDERED: ONDANSETRON INJ 2 MG/ML 2 ML VIAL ONE (12:28)
[2021-07-26] MEDS ORDERED: BACITRACIN OINT 15 GM TUBE EXT ONE (12:36)
--- NOTE | 2021-07-26 12:43 | Post Operative Brief Note ---
Immediate Post Op Note v1 Date of Surgery July 26, 2021 Pre & Post Diagnosis Operation Date: 07/26/21 07:00 Pre-Op Diagnosis: progressive muscular weakness Post-Op Diagnosis: progressive muscular weakness I identified the patient and participated in the time-out.: Yes Procedure Operation Date: 07/26/21 07:00 Actual Procedures p Right upper Leg Muscle Biopsy(Right) - Cam Dickens MD Surgeon Cam Dickens MD Senior Marketing Associate surgical instruments inspector Estimated Blood Loss 3 Findings Consistent with Post-Op Diagnosis edema on muscle Fluids 500ml Specimens right upper leg muscle Anesthesia Type Local Complications none Disposition Accompanied Patient To Recovery: Yes
--- NOTE | 2021-07-26 13:13 | Anesthesiology Progress Note ---
Date of Service July 26, 2021 Anesthesia Post Procedure Vital Signs Vital Signs: Temp Pulse Pulse Pulse Resp BP BP 07/26/21 13:10 36.3 C L 80 20 117/58 L 07/26/21 13:00 80 14 116/58 L 07/26/21 12:50 36.0 C L 69 18 109/56 L 07/26/21 10:55 36.9 C 66 18 136/66 07/26/21 07:50 36.9 C 78 16 131/66 07/25/21 22:43 36.4 C L 54 L 16 145/67 H 07/25/21 16:16 36.5 C 52 L 16 145/74 H Pulse Ox 07/26/21 13:10 97 07/26/21 13:00 100 07/26/21 12:50 99 07/26/21 10:55 99 07/26/21 07:50 97 07/25/21 22:43 95 07/25/21 16:16 91 Pain Intensity Head: Pain Intensity: 5 Transfer of Care Handoff Completed per policy Notes Mental Status: alert / awake / arousable and participated in evaluation Patient Amnestic to Procedure: Yes Nausea / Vomiting: adequately controlled Pain: adequately controlled Airway Patency, RR, SpO2: stable & adequate BP & HR: stable & adequate Hydration State: stable & adequate Anesthetic Complications: no major complications apparent
[2021-07-26] MEDS ORDERED: HYDROCODONE/ACETAMOPHEN 5/325MG TAB PO PRN (13:42)
[2021-07-26] MEDS ORDERED: GLUCOSE 10 TABS/TUBE PO PRN ×3 (13:42→17:43)
[2021-07-26] MEDS ORDERED: NON-FORMULARY MEDICATION (Oxygen Home Liters per Minute) SCH (13:42)
[2021-07-26] MEDS: LACTATED RINGER'S 1,000 ML IV SCH (13:55)
[2021-07-26] MEDS ORDERED: FUROSEMIDE 40 MG TAB PO SCH (14:00)
[2021-07-26] MEDS ORDERED: VANCOMYCIN TROUGH ONE (15:30)
[2021-07-26] MEDS: VANCOMYCIN HCL 750 MG in SODIUM CHLORIDE 0.9% 250 ML IV SCH (16:43)
[2021-07-26] MEDS: DIGOXIN 0.125 MG TAB PO SCH (16:44)
[2021-07-26] MEDS: CALCITRIOL 0.25 MCG CAPSULE PO SCH (16:51)
[2021-07-26] MEDS ORDERED: DEXTROSE 50% 50 ML SYRINGE IV PRN (17:43)
[2021-07-26] MEDS ORDERED: CARBOHYDRATES FOR HYPOGLYCEMIA PO PRN (17:43)
[2021-07-26] MEDS ORDERED: GLUCOSE 40% GEL 15 GM TUBE PO PRN (17:43)
[2021-07-26] MEDS ORDERED: GLUCAGON FOR INJ 1 MG VIAL SQ PRN (17:43)
[2021-07-26] MEDS: INSULIN ASPART PER UNIT SC SCH ×2 (18:19→21:06)
--- NOTE | 2021-07-26 19:06 | Hospitalist Progress Note ---
Date of Service July 26, 2021 Assessment & Plan (1) Myopathy: Plan: She has had severe weakness at home - essentially cannot stand or walk. SIGNIFICANT, has been progressive. Proximal weakness as well as glove/stocking paresthesias. Diagnosed with adrenal insufficiency as well (prior admits n/v/abd pain/diarrhea) and started on prednisone 20mg PO BID 07/23 as below, and this has made improvements Improvement in UE strength/mobility today, continued LE symptoms ESR/CRP not elevated - myositis unlikely. * --> Checking urine myoglobin -- PENDING CK 2229 peaked --> down to 560. (She did have a fall but it was 2-3 weeks ago thus rhabdomyolysis from that fall - this far out - is unlikely.) Lipitor placed on hold (has been on since prior cath) -- since discontinued and checking HMG-CoA antibody --> pending LFTs previously normal, no new meds other than Levaquin for UTI? --> Had been slightly improving but then placed on fluconazole for rasheed in urine * --> held further fluconazole for now. can repeat ua to ensure clearance? (was on ceftriaxone for UTI, since change to complete with Vanco) * --> LFTs continue to trend down * If from lipitor, holding/discontinuing may not help and she may need something like IVIG/rituximab, but will await above and monitor for now and further Neuro recs tomorrow * If proven to be autoimmune myopathy could consider IVIG or other immune supp ressive treatment B12 wnl, TSH wnl earlier last month. Lyme Negative. Neuro consulted - discussed with Dr. Velez today * Checking MRI brain w/wo as well as cervical spine w/ wo to evaluate for normal pressure hydrocephalus and significant cervical spinal stenosis which could give a myelopathy * --> MRI Brain: no acute findings, no intracranial mass/pathologic enhancement. 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 No associated cord signal abnormality.. Moderate central canal stenosis at C3-C4 and C5-C6, as described above.Multilevel neural foraminal stenosis. Normal cervical cord signal and caliber. No fx * Of note, I did mention prior pt hx of elevated tryptase per allergy/immunology note to Dr Velez and he was going to look further into this. Wonder if related/underlying mast cell disorder Ortho consulted * He reviewed imaging and did feel UE symptoms could be related and multifactorial. Suggested tuning patient up/additional studies as already obtained and if improvement in other symptoms and continued UE weakness can continue to may recommendations if patient is surgical candidate General surgery consulted * Muscle Bx completed on 07/26 - pending results * Will discuss on when to resume Xarelto/Plavix Continue PT/OT while inpatient (2) Adrenal insufficiency: Plan: Cosyntropin stim test - failed such. Baseline cortisol was 15, but she had NO rise in cortisol level with 1mcg cosyntropin x 1. This suggests adrenal insufficiency. Adrenal insufficiency would certainly explain her low sugars, dizziness, fati nando, and perhaps even some of her chronic GI complaints. Due to stress of multiple concurrent illnesses will start with higher than typical replacement doses -started prednisone 20mg BID 07/23 Gradually wean to replacement doses (hydrocortisone 15mg am, hydrocortisone 5mg pm -- or prednisone equivalents). --> Discussion with neuro rec'd to continue higher doses for several days to see if helps with weakness --> Improvement of weakness, suggesting a myopathy and will continue 20mg PO BID for now ACTH level -- pending (3) Elevated creatine kinase level: Plan: medication vs autoimmune process? See above statin discontinued no fall/trauma reported recently continue to trend -- trending down (4) UTI (urinary tract infection): Plan: 2nd to enterococcus - PCN/amp resistant, with albicans Was on Rocephin previously, got 3 doses of fluconazole as above (d/c given LFTs) and changed to Vancomycin IV 07/24 and would plan 7 day course having urinary retention - likely from UTI - saleem placed, UOP acceptable (5) Hypoglycemia: Plan: Suspect combination of very poor oral intake, poor hepatic gluconeogenesis, poor glycogen stores, and now adrenal insufficiency to blame. Should improve/resolve with steroid replacement -- was a little elevated and will place a very soft coverage to correct for higher sugars Cut Dextrose drip -- since discontinued and no further episodes of hypoglycemia since Continue to monitor (6) Liver mass, right lobe: Plan: she had a bx in 2020 showing focal fibrosis? however, given the LFTs being high, I obtained repeat MRI abdomen/liver this did NOT show any remaining mass? AFP pending (7) Abnormal LFTs: Plan: HOLD STATIN -- discontinued for now, see above Liver anatomically normal on MRI. No biliary tract disease seen. repeat LFTs today still elevated but improving 2nd to intrinsic liver disease? viral? other? continue to trend them; obtain additional w/u as needed as outlined above (8) Folate deficiency: Plan: cont folic acid 1mg po daily. plan 30 days of Rx whether IV or PO. 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 repeated level given her ongoing macrocytosis to ensure she does not need replacement again -- pending (10) Macrocytic anemia: Plan: folate def. copper def. both likely contributing. s/p 1 unit PRBCs earlier this admission. improved H/H. follow H/H every 2-3 days for stability. (11) CAD (coronary artery disease): Plan: noted -- CAD s/p CABG x 1 (2015) and s/p SVG to RCA Graft Stent 01/06/21, An omalous Circumflex Coronary Artery hold Lipitor due to high LFTs cont plavix --HOLDING STARTING 07/23 for muscle biopsy as above, on asa 81mg daily in meantime, resume when able after biopsy cont metoprolol cont ranexa cont imdur some of her chronic STEPHENS/chest tightness could be from CAD, some could be from anemia in setting of CAD (denied those symptoms 07/25) (12) High serum ferritin: Plan: noted has had w/u for this by heme/onc in the past no hemochromatosis based on records (13) Paroxysmal atrial flutter: Plan: and paroxysmal a.fib cont BB cont xarelto once able to be resumed after biopsy (14) Generalized weakness: Plan: likely multifactorial - anemia, UTI, ?concern for malignancy, nutritional deficiencies, concern for myopathy, adrenal insufficiency as above. s/p Tx of 1 unit blood this admission Rx UTI Rx steroid replacement treat/work-up the myopathy as above PT/OT consulted -- likely need rehab. CM to follow (15) Multiple pulmonary nodules determined by computed tomography of lung: Plan: LANDON nodule has been very suspicious for cancer following with pulmonary last PET-CT noted may need w/u for this very soon (biopsy, etc) or at least close pulmonary follow-up (has seen [facility] for such) (16) Severe protein-calorie malnutrition: Plan: prior gastric bypass status prior Whipple procedure for pancreatic cyst which ultimately was benign malnutrition may be multiple etiologies as above; family reports rather rapid weight loss over past months (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 (18) Chronic kidney disease, stage IV (severe): Plan: baseline CrCl 15-30. Baseline cr 1.1-1.[address] Meehan's most recent note bmps have been stable hold lasix 40mg (19) DVT prophylaxis: Plan: xarelto -- placed on hold, along with her plavix --> Discussed with Dr Robins, and ok to do such and continue ASA 81mg daily in meantime Plan: Await Bx to determine treatment plan; PT/OT; Further acute stay required Admission and Anticipated Discharge Date Admission Date: July 20, 2021 Supervising Physician Co-Signing Physician Notes PA Supervision Note: I did not personally see or examine the patient today, but I verified all [place]ares points of NATHALIA Ruvalcaba's assessment and plan with the following exceptions/additions: None Subjective No acute events overnight. Went for biopsy of the muscle today. Tolerated well. She feels like she is getting a bit stronger but feels she has a long way to go. She did have some BSG elevations this afternoon and will correct and monitor. LFTs are trending down. She tolerated lunch without issue. Review of Systems Review of Systems: All systems reviewed & are unremarkable except as noted in Subjective Physical Exam Physical Exam: PHYSICAL EXAM General Appearance: Thin elderly woman in NAD who is A&O x 3 HEENT: Head is normocephalic/atraumatic; Hearing grossly intact; Mucous membranes moist Neck: Supple; Trachea midline; Neg JVD Heart: regular rate; faint murmur Lungs: CTA in all lung cam bilaterally; Respirations unlabored; Neg accessory muscle use Abdomen: Soft, non-tender, non-distended; Positive BS x 4 quadrants Extremities: Neg cyanosis; trace edema b/l legs Neurological: Speech clear; significant proximal muscle weakness of hips (same today, flexion is 3-4/5 at best); distal strength of feet/ankles - dorsiflexion/plantarflexion - 5/5; handgrip 5/5; proximal muscle weakness of b/l shoulder region although L shoulder has significant rotator cuff issues (muscle wasting noted of the leandra-shoulder muscles) but able to lift arms to the level of the shoulder today, decreased strength against resistance, decreased muscle tone, glove/stocking paresthesia with decreased sensation to pinprick 0/4 reflexes, ?1/4 quad tendon, no clonus or pronator drift appreciated Psychiatric: Appropriate mood/affect; intermittent confusion Skin: Normal Color; Warm/Dry; ecchymosis and old scabbed ulcerations on shins Results & Data Results & Data ([facility]) Vital Signs (Past 12 Hours) Vital Signs Temp Pulse Pulse Pulse Resp BP Pulse Ox 07/26/21 16:49 60 16 105/48 L 97 07/26/21 15:32 37.0 C 87 16 115/75 94 07/26/21 14:39 36.5 C 95 H 16 112/75 95 07/26/21 14:10 37.0 C 95 H 16 134/82 94 07/26/21 13:40 36.3 C L 88 18 119/78 99 07/26/21 13:20 65 18 112/71 97 07/26/21 13:10 36.3 C L 80 20 117/58 L 97 07/26/21 13:00 80 14 116/58 L 100 07/26/21 12:50 36.0 C L 69 18 109/56 L 99 07/26/21 10:55 36.9 C 66 18 136/66 99 07/26/21 07:50 36.9 C 78 16 131/66 97 PG Care Time/CCT Total # of Minutes Spent Total Time Spent with Patient: Total time spent is greater than 50% in coordination of care (as documented) at patient's floor/unit and/or counseling patient: Coding Level of Care Code 10088 Subseq Hosp Care Lvl 3 Diagnoses Myopathy G72.9 Adrenal insufficiency E27.40 Elevated creatine kinase level R74.8 UTI (urinary tract infection) N39.0 Hypoglycemia E16.2 Liver mass, right lobe R16.0 Abnormal LFTs R79.89 Folate deficiency E53.8 Copper deficiency E61.0 Macrocytic anemia D53.9 CAD (coronary artery disease) I25.10 Associated angina: without angina Coronary Disease-Associated Artery/Lesion type: [place] artery [place] vs. transplanted heart: [place] heart High serum ferritin R79.89 Paroxysmal atrial flutter I48.92 Generalized weakness R53.1 Multiple pulmonary nodules determined by computed tomography of lung R91.8 Severe protein-calorie malnutrition E43 DVT prophylaxis Z29.9 Temporal lobe epilepsy G40.109 Chronic kidney disease, stage IV (severe) N18.4 (1) CAD (coronary artery disease) Associated angina: without angina Coronary Disease-Associated Artery/Lesion type: [place] artery [place] vs. transplanted heart: [place] heart Qualified Code(s): I25.10 - Atherosclerotic heart disease of [place] coronary artery without angina pectoris
--- NOTE | 2021-07-26 19:29 | Pharmacy Report ---
Pharmacy Vanc AUC Short Note - Date of Service July 26, 2021 - Assessment & Plan Assessment 80 year old F receiving Vancomycin for treatment of UTI. Pertinent microbiologic data includes:culture growing enterococcus faecium. Day # 4 of antimicrobial therapy. Plan Laboratory Tests 07/26/21 15:20 Vancomycin Trough 14.4 Vancomycin * AUC/ROXANNE is the preferred PK/PD target for vancomycin * AUC guided dosing is effective and associated with decreased risk of nephrotoxicity compared to traditional trough targets * Continue dose of 750 mg IV every 24 hours . Pharmacy will continue to follow and will adjust dose/frequency as necessary. Thank you.
[2021-07-26] MEDS: GABAPENTIN 300 MG CAP PO SCH (20:57)
--- NOTE | 2021-07-26 22:15 | Operative Report (OR) ---
DATE OF PROCEDURE: 07/26/2021. PREOPERATIVE DIAGNOSIS: Muscle weakness. POSTOPERATIVE DIAGNOSIS: Muscle weakness. OPERATION: Right upper leg muscle biopsy. SURGEON: Cam Dickens MD ANESTHESIA: Conscious sedation plus local. ESTIMATED BLOOD LOSS: About 3 mL. FINDINGS: Edema on the muscle. COMPLICATIONS: None. INDICATIONS FOR THE PROCEDURE: This is an 80-year-old female who is referred for the muscle biopsy and based on the patient had muscle weakness, I recommended to do the right upper leg muscle biopsy. I did talk to the patient about the benefits, risks, and alternate procedures. I indicated the risks may include, but not limited to, such as bleeding, infection, and injury to other organs. The patient understands. He signed informed consent and I answered all questions. DETAILS OF PROCEDURE: After we identified the patient and verified the procedure, we brought in the patient to the OR, put the patient in the supine position. The patient received SCDs on bilateral legs to prevent DVT. Also, the patient received 1 gram of vancomycin IV for prophylactic antibiotic. The patient received conscious sedation by the anesthesiology. The right upper leg was prepped and draped in routine sterile fashion. After timeout, we injected the local anesthesia by using 1% lidocaine mixed with 0.5% Marcaine on the right side of the leg. I made about a 2 cm incision on the right side of the leg, dissected the subcutaneous layer, reached the fascial layer, opened the fascial layer. Then, we found the patient had edema on the muscle. Then we removed 2 pieces of the muscle, each piece length about 1 cm x 0.5 cm, and we used 3-0 Vicryl to ligate two sites in the muscle and no active bleeding, and also we removed two pieces of muscle. Hemostasis was obtained. Then, I used 3-0 Vicryl to close the fascial layer continuous running, closed subcutaneous layer by using 2-0 Vicryl continuous running, closed skin by using 4-0 Vicryl continuous running. Then we put the dressing on. The patient tolerated the procedure well. All the instrument, needle, sponge counts were correct x2 at the end of the case. The patient was transferred to recovery room in stable condition. The specimen was sent to pathology. After the procedure, I did talk to the patient about the OR finding and the procedure we did, the patient understands. Job ID: [id number] [facility]
[2021-07-27] MEDS ORDERED: CYANOCOBALAMIN 1000 MCG/ML VIAL IM SCH (09:00)
[2021-07-27 09:04] LABS: Basophils # (auto) 0.01 K/uL (0-0.2); Basophils % (auto) 0.1 %; Hematocrit (blood only) 28.6 % (37-47); Hemoglobin 9.3 g/dL (12.0-16.0); Immature Granulocytes # (auto) 0.08 K/uL (0.00-0.02); Immature Granulocytes % (auto) 0.6 %; Lymphocytes # (auto) 0.78 K/uL (1.2-3.4); Lymphocytes % (auto) 5.8 %; Mean Corpuscular Hemoglobin 31.8 pg (25-34); Mean Corpuscular Hgb Conc 32.5 g/dL (32-36); Mean Corpuscular Volume 97.9 fL (80-100); Mean Platelet Volume 9.9 fL (7.4-10.4); Monocytes # (auto) 1.32 K/uL (0.11-0.59); Monocytes % (auto) 9.8 %; Neutrophils # (auto) 11.34 K/uL (1.4-6.5); Neutrophils % (auto) 83.7 %; Platelet Count 301 K/uL (130-400); RDW Coefficient of Variation 15.5 % (11.5-14.5); RDW Standard Deviation 55.2 fL (36.4-46.3); Red Blood Count 2.92 M/uL (4.2-5.4); White Blood Count 13.53 K/uL (4.8-10.8)
[2021-07-27] MEDS: prednisoLONE acetate 1% OP SUSP 5 ML BTL OP SCH (09:05)
[2021-07-27] MEDS: INSULIN ASPART PER UNIT SC SCH ×4 (09:05→20:55)
[2021-07-27] MEDS: ISOSORBIDE MONO EXTENDED REL 60 MG TABCR PO SCH (09:06)
[2021-07-27] MEDS: CEROVITE ADV FORMULA TAB PO SCH (09:06)
[2021-07-27] MEDS: METOPROLOL SUCC 50MG EXT REL TAB PO SCH ×2 (09:06→20:57)
[2021-07-27] MEDS: POTASSIUM CHLORIDE CRTAB 20 MEQ TABCR PO SCH (09:06)
[2021-07-27] MEDS: predniSONE 20 MG TAB PO SCH ×2 (09:06→17:48)
[2021-07-27] MEDS: ASPIRIN 81 MG ECTAB PO SCH (09:07)
[2021-07-27] MEDS: LIDOCAINE 5% 1 PATCH TD SCH (09:07)
[2021-07-27] MEDS: RANOLAZINE 500 MG ER TAB PO SCH ×2 (09:07→20:57)
[2021-07-27] MEDS: FOLIC ACID 1 MG TAB PO SCH (09:08)
[2021-07-27 09:34] LABS: Albumin Level 2.4 gm/dl (3.4-5.0); BUN Creatinine Ratio 24.1 (10-20); Bilirubin,Total 0.4 mg/dl (0.2-1.0); Calcium 7.3 mg/dl (8.5-10.1); Creatinine Clr Calc Pharmacy 20.6 ml/min; Est GFR (African American) 34.1 ml/min; Est GFR (Non-African American) 29.5 ml/min; Globulin 2.3 gm/dl (2.5-4.0); Magnesium 1.6 mg/dl (1.7-2.4); Phosphorus 3.4 mg/dl (2.5-4.9); Potassium 4.3 mmol/L (3.5-5.1); Total Protein 4.7 gm/dl (6.0-8.3)
--- NOTE | 2021-07-27 10:00 | Surgery Progress Note ---
Date of Service July 27, 2021 Assessment & Plan (1) Weakness: Plan: pt is a 80 year-old female who was admitted to hospital with weakness, consult for muscle biopsy, Plan, I recommend to do right upper leg muscle biopsy under sedation + local anesthesia on 07/26/2021, D/W benefits, risks and alternatives of the surgery, the risks - infection, bleeding, hematoma, pt and her son ( Isidro Quezada [phone]) they understood, they agree with the surgery, pt signed informed consent, I answered all questions, Hold plavix and Xarelto for 07/25/21 and 07/26/21, start ASA 81 mg po once a day, please D/W with clinical trial head for this plan, NPO after MN on 07/25/2021 , repeat labs PT, INR, PTT on morning 07/26/2021, will F/U, 07/25/2021 3:17PM Dr. ramirez pt will have right upper leg muscle biopsy tomorrow, pt understood, I answered all questions, 07/27/2021 Dr. Ramirez F/U S/P right upper leg muscle biopsy, POD1 pt is doing fine, keep the dressing on for 4 days, she can take a shower on 07/30. Resume plavix and Xarelto today, and stop ASA sign off today, please call with questions, thanks, Admission and Anticipated Discharge Date Admission Date: July 20, 2021 Supervising Physician Co-Signing Physician Notes PA Supervision Note: I did not personally see or examine the patient today, but I verified all [place]ares points of NATHALIA Ruvalcaba's assessment and plan with the following exceptions/additions: None Subjective No acute events overnight. Went for biopsy of the muscle today. Tolerated well. She feels like she is getting a bit stronger but feels she has a long way to go. She did have some BSG elevations this afternoon and will correct and monitor. LFTs are trending down. She tolerated lunch without issue. 07/27/2021, Maninder Early F/U S/P muscle biopsy, pt is doing fine, no fever, Physical Exam Constitutional: WD/WN, vitals as above Eyes: PERRL, conjunctivae normal, anicteric sclerae Neck: trachea midline, no thyromegaly Respiratory: normal respiratory effort, lungs clear to auscultation Cardiovascular: RRR, no murmur, no edema Gastrointestinal (Abdomen): normal bowel sounds, soft, nontender, no hepatosplenomegaly Skin: right upper leg incision intact, no redness, Neurologic: patellar DTR's 2+ bilat, sensation intact Psychiatric: A+Ox3, euthymic affect Results & Data ([facility]) Vital Signs (Past 12 Hours) Vital Signs Temp Pulse Pulse Resp BP Pulse Ox 07/27/21 07:00 36.8 C 63 18 118/69 97 07/27/21 03:18 36.7 C 51 L 16 105/54 L 95 07/26/21 22:26 37 C 51 L 16 102/65 96 Laboratory Results Abnormal lab results 07/26/21 07/26/21 07/26/21 Range/Units 12:59 17:12 17:13 WBC (4.8-10.8) K/uL RBC (4.2-5.4) M/uL Hgb (12.0-16.0) g/dL Hct (37-47) % RDW Std Deviation (36.4-46.3) fL RDW Coeff of Argenis (11.5-14.5) % Neut # (Auto) (1.4-6.5) K/uL Lymph # (Auto) (1.2-3.4) K/uL [place] # (Auto) (0.11-0.59) K/uL Immature Gran # (Auto) (0.00-0.02) K/uL Sodium (136-145) mmol/L BUN (6-23) mg/dl Creatinine (0.6-1.2) mg/dl BUN/Creatinine Ratio (10-20) Glucose (70-99(Fasting)) mg/dl POC Glucose 117 H 314 H* 306 H* (70-99) mg/dl Calcium (8.5-10.1) mg/dl Magnesium (1.7-2.4) mg/dl AST (13-39) U/L ALT (7-52) U/L Alkaline Phosphatase (34-104) U/L Total Creatine Kinase (26-192) U/L Total Protein (6.0-8.3) gm/dl Albumin (3.4-5.0) gm/dl Globulin (2.5-4.0) gm/dl 07/26/21 07/27/21 07/27/21 Range/Units 20:41 08:13 08:19 WBC 13.53 H (4.8-10.8) K/uL RBC 2.92 L (4.2-5.4) M/uL Hgb 9.3 L (12.0-16.0) g/dL Hct 28.6 L (37-47) % RDW Std Deviation 55.2 H (36.4-46.3) fL RDW Coeff of Argenis 15.5 H (11.5-14.5) % Neut # (Auto) 11.34 H (1.4-6.5) K/uL Lymph # (Auto) 0.78 L (1.2-3.4) K/uL [place] # (Auto) 1.32 H (0.11-0.59) K/uL Immature Gran # (Auto) 0.08 H (0.00-0.02) K/uL Sodium (136-145) mmol/L BUN (6-23) mg/dl Creatinine (0.6-1.2) mg/dl BUN/Creatinine Ratio (10-20) Glucose (70-99(Fasting)) mg/dl POC Glucose 236 H 137 H (70-99) mg/dl Calcium (8.5-10.1) mg/dl Magnesium (1.7-2.4) mg/dl AST (13-39) U/L ALT (7-52) U/L Alkaline Phosphatase (34-104) U/L Total Creatine Kinase (26-192) U/L Total Protein (6.0-8.3) gm/dl Albumin (3.4-5.0) gm/dl Globulin (2.5-4.0) gm/dl 07/27/21 Range/Units 08:19 WBC (4.8-10.8) K/uL RBC (4.2-5.4) M/uL Hgb (12.0-16.0) g/dL Hct (37-47) % RDW Std Deviation (36.4-46.3) fL RDW Coeff of Argenis (11.5-14.5) % Neut # (Auto) (1.4-6.5) K/uL Lymph # (Auto) (1.2-3.4) K/uL [place] # (Auto) (0.11-0.59) K/uL Immature Gran # (Auto) (0.00-0.02) K/uL Sodium 135 L (136-145) mmol/L BUN 39 H (6-23) mg/dl Creatinine 1.62 H (0.6-1.2) mg/dl BUN/Creatinine Ratio 24.1 H (10-20) Glucose 116 H (70-99(Fasting)) mg/dl POC Glucose (70-99) mg/dl Calcium 7.3 L (8.5-10.1) mg/dl Magnesium 1.6 L (1.7-2.4) mg/dl AST 91 H (13-39) U/L ALT 110 H (7-52) U/L Alkaline Phosphatase 108 H (34-104) U/L Total Creatine Kinase 359 H (26-192) U/L Total Protein 4.7 L (6.0-8.3) gm/dl Albumin 2.4 L (3.4-5.0) gm/dl Globulin 2.3 L (2.5-4.0) gm/dl
--- NOTE | 2021-07-27 10:05 | Neurology Progress Note ---
Date of Service July 27, 2021 Assessment & Plan (1) Rapidly progressive weakness: (2) Myopathy: (3) Elevated creatine kinase level: (4) Idiopathic polyneuropathy: (5) Cervical spine pain: (6) Lumbar spine pain: (7) Memory deficits: Plan: This is a very complicated patient neurologically and I am concerned with her rapid progression of weakness and recent laboratory changes. Clinically, she displays a proximal weakness pattern consistent with myopathy. she is slowly improving over the last few days with her core strength and proximal strength in the arms and legs The most obvious etiology would be the statin Lipitor, which she had been on for almost 8 months. Interestingly, she did not have an elevated CK, CRP, or liver enzymes in May during her last hospitalization. In addition to the more typical myalgias, weakness, elevated CK and myopathy that statins can produce, Lipitor can also cause a rare autoimmune myopathy that could give a clinical picture like this. certainly, another etiology to her myopathy including a typical myositis is possible also. In addition, she has a severe cervical spinal stenosis from C3 through C6 with probable cord compression. Although she does not show any obvious upper motor neuron signs on exam I am concerned that cord compression could be contributing to weakness in the extremities. She does have some incontinence of urine and falls frequently. She has evidence of a polyneuropathy involving predominantly sensory fibers of uncertain etiology. The presence of polyneuropathy could mask upper motor neuron signs. 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 Certainly, s ignificant anemia, urinary tract infections, hypoglycemia, and adrenal insufficiency could also add to her weakness and debilitation. The history of copper deficiency in the past is interesting. Fluconazole, could have been causing the increased liver function tests Patient had a CT scan of the cervical spine on July 06 which showed no change in 1.6 centimeter ground-glass nodule in the left lung apex. A CT scan of the chest that day did not mention this lesion. Recommendations: 1. keep off all statins and fluconazole. 2. Anti HMGCR antibody, urine myoglobin, and serum copper are pending 3. check B12 and folate, if not done recently. 4. physical and occupational therapy , increasing activity as able 5. awaiting muscle biopsy results 6. EMG nerve conduction studies of 1 arm and leg as an outpatient. Unfortunately, we cannot do this is an inpatient currently. 7. Continue steroids to treat the weakness. if this is proven autoimmune myopathy, we then could consider IVIG or other immune suppressive treatments 8. Follow up on possible left upper lobe lesion. Overall, I spent a total of 45 minutes with this case including review of records, Review of MRI films, direct evaluation the patient bedside, and discussion of the case with the patient and RN at bedside, and Angelica Ruvalcaba PA-C, including differential diagnosis and treatment options. Admission and Anticipated Discharge Date Admission Date: July 20, 2021 Subjective Patient feels better in general. She feels a little bit stronger. She has no pain or headache. Blood pressure is 118/69 and she is afebrile. She had a right quadriceps biopsy by Dr. Dickens yesterday. The results are pending. CBC showed mild anemia today and Chem profile was remarkable for AST of 91, ALT of 110, alk-phos 108, and CK 359. these are all improved compared to yesterday. Results & Data ([facility]) Vital Signs (Past 12 Hours) Vital Signs Temp Pulse Pulse Resp BP Pulse Ox 07/27/21 07:00 36.8 C 63 18 118/69 97 07/27/21 03:18 36.7 C 51 L 16 105/54 L 95 07/26/21 22:26 37 C 51 L 16 102/65 96 Exam (Neuro) Physical Exam: She is awake and alert. Speech is without aphasia or dysarthria. Mood is normal and affect is appropriate. Thought processes are intact with Reasonable memory to conversation. Extraocular eye muscles are intact without nystagmus. There is no facial droop. Tongue is strong bilaterally. Neck has 4+/ 5 strength in AP direction. Motor strength is 4/5 proximally in the arms and legs except for the hip flexors which are 3/5. Distal strength is closer to 5/5. Reflexes are absent in all 4 limbs. Toes are neutral to downgoing bilaterally. Lives do not have spasticity. PG Care Time/CCT Total # of Minutes Spent Total Time Spent with Patient: Total time spent is greater than 50% in coordination of care (as documented) at patient's floor/unit and/or counseling patient: Coding Level of Care Code 70685 Subseq Hosp Care Lvl 3 Diagnoses Rapidly progressive weakness R53.1 Myopathy G72.9 Elevated creatine kinase level R74.8 Idiopathic polyneuropathy G60.9 Cervical spine pain M54.2 Lumbar spine pain M54.50 Memory deficits R41.3
--- NOTE | 2021-07-27 13:55 | Pharmacy Report ---
Pharmacy Vanc AUC Short Note - Date of Service July 27, 2021 - Assessment & Plan Assessment 80 year old F receiving Vancomycin for treatment of UTI. * Pertinent microbiologic data includes: * E. faecium (S to Daptomycin, Vancomycin) * Day #5/7 of antimicrobial therapy Plan Vancomycin * AUC/ROXANNE is the preferred PK/PD target for vancomycin * AUC guided dosing is effective and associated with decreased risk of nephrotoxicity compared to traditional trough targets * Trough level of 14.4 mcg/mL correlates to an AUC/ROXANNE of greater than 600 mg/L.hr * Change to 500 mg IV every 24 hours is predicted to achieve target AUC/ROXANNE of 400-600 mg/L.hr and may be associated with a 10% risk of nephrotoxicity * NO further troughs will be ordered as therapy finishes on (07/29/21). Pharmacy will continue to follow and will adjust dose/frequency as necessary. Thank you.
[2021-07-27] MEDS: VANCOMYCIN HCL 500 MG in DEXTROSE 5% 100 ML IV SCH (17:18)
[2021-07-27] MEDS: RIVAROXABAN 15 MG TAB PO SCH (17:49)
--- NOTE | 2021-07-27 19:01 | Hospitalist Progress Note ---
Date of Service July 27, 2021 Assessment & Plan (1) Myopathy: Plan: She has had severe weakness at home - essentially cannot stand or walk. SIGNIFICANT, has been progressive. Proximal weakness as well as glove/stocking paresthesias. Diagnosed with adrenal insufficiency as well (prior admits n/v/abd pain/diarrhea) and started on prednisone 20mg PO BID 07/23 as below, and this has made improvements Improvement in UE strength/mobility today, continued LE symptoms ESR/CRP not elevated - myositis unlikely. * --> Checking urine myoglobin -- PENDING CK 2229 peaked --> down to 359. (She did have a fall but it was 2-3 weeks ago thus rhabdomyolysis from that fall - this far out - is unlikely.) Lipitor placed on hold (has been on since prior cath) -- since discontinued and checking HMG-CoA antibody --> pending LFTs previously normal -- Had been slightly improving but then placed on fluconazole for rasheed in urine * --> held further fluconazole for now (was on ceftriaxone for UTI, since change to complete with Vanco) * --> LFTs continue to trend down * If from lipitor, holding/discontinuing may not help and she may need something like IVIG/rituximab, but will await above and monitor for now and further Neuro recs * If proven to be autoimmune myopathy could consider IVIG or other immune suppressive treatment B12 wnl, TSH wnl earlier last month. Lyme Negative. Neuro consulted - discussed with Dr. Velez again today main beneficial piece will be the reference labs and biopsy to better depict the treatment plan * --> MRI Brain: no acute findings, no intracranial mass/pathologic enhancement. 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 No associated cord signal abnormality.. Moderate central canal stenosis at C3-C4 and C5-C6, as described above.Multilevel neural foraminal stenosis. Normal cervical cord signal and caliber. No fx * Of note, I did mention prior pt hx of elevated tryptase per allergy/immunology note to Dr Velez and he was going to look further into this. Wonder if related/underlying mast cell disorder Ortho consulted * Dr. Thakur reviewed imaging and did feel UE symptoms could be related and multifactorial. Suggested tuning patient up/additional studies as already obtained and if improvement in other symptoms and continued UE weakness can continue to may recommendations if patient is surgical candidate. When talked with family they were under the impression she should avoid surgery given her cardiac history General surgery consulted/signed off * Muscle Bx completed on 07/26 - pending results * Can resume Xarelto/Plavix Continue PT/OT while inpatient (2) Adrenal insufficiency: Plan: Cosyntropin stim test - failed such. Baseline cortisol was 15, but she had NO rise in cortisol level with 1mcg cosynt ropin x 1. This suggests adrenal insufficiency. Adrenal insufficiency would certainly explain her low sugars, dizziness, fatigue, and perhaps even some of her chronic GI complaints. Due to stress of multiple concurrent illnesses will start with higher than typical replacement doses -started prednisone 20mg BID 07/23 Gradually wean to replacement doses (hydrocortisone 15mg am, hydrocortisone 5mg pm -- or prednisone equivalents). --> Discussion with neuro rec'd to continue higher doses for several days to see if helps with weakness --> Improvement of weakness, suggesting a myopathy and will continue 20mg PO BID for now ACTH level -- pending (3) Elevated creatine kinase level: Plan: medication vs autoimmune process? See above statin discontinued no fall/trauma reported recently continue to trend -- trending down (4) UTI (urinary tract infection): Plan: 2nd to enterococcus - PCN/amp resistant, with albicans Was on Rocephin previously, got 3 doses of fluconazole as above (d/c given LFTs) and changed to Vancomycin IV 07/24 and would plan 7 day course having urinary retention - likely from UTI - saleem placed, UOP acceptable (5) Hypoglycemia: Plan: Suspect combination of very poor oral intake, poor hepatic gluconeogenesis, poor glycogen stores, and now adrenal insufficiency to blame. Should improve/resolve with steroid replacement -- was a little elevated and will place a very soft coverage to correct for higher sugars Cut Dextrose drip -- since discontinued and no further episodes of hypoglycemia since Continue to monitor (6) Liver mass, right lobe: Plan: she had a bx in 2020 showing focal fibrosis? however, given the LFTs being high, I obtained repeat MRI abdomen/liver this did NOT show any remaining mass? AFP pending (7) Abnormal LFTs: Plan: HOLD STATIN -- discontinued for now, see above Liver anatomically normal on MRI. No biliary tract disease seen. repeat LFTs today still elevated but improving hepatitis panel pending 2nd to intrinsic liver disease? viral? other? continue to trend them; obtain additional w/u as needed as outlined above (8) Folate deficiency: Plan: cont folic acid 1mg po daily. plan 30 days of Rx whether IV or PO. 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 repeated level given her ongoing macrocytosis to ensure she does not need replacement again -- pending (10) Macrocytic anemia: Plan: folate def. copper def. both likely contributing. s/p 1 unit PRBCs earlier this admission. improved H/H. follow H/H every 2-3 days for stability. (11) CAD (coronary artery disease): Plan: noted -- CAD s/p CABG x 1 (2015) and s/p SVG to RCA Graft Stent 01/06/21, Anomalous Circumflex Coronary Artery hold Lipitor due to high LFTs cont plavix cont metoprolol cont ranexa cont imdur some of her chronic STEPHENS/chest tightness could be from CAD, some could be from anemia in setting of CAD (denied those symptoms 07/25) (12) High serum ferritin: Plan: noted has had w/u for this by heme/onc in the past no hemochromatosis based on records (13) Paroxysmal atrial flutter: Plan: and paroxysmal a.fib cont BB cont xarelto (14) Generalized weakness: Plan: likely multifactorial - anemia, UTI, ?concern for malignancy, nutritional deficiencies, concern for myopathy, adrenal insufficiency as above. s/p Tx of 1 unit blood this admission Rx UTI Rx steroid replacement treat/work-up the myopathy as above PT/OT consulted -- likely need rehab. 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 (18) Chronic kidney disease, stage IV (severe): Plan: baseline CrCl 15-30. Baseline cr 1.1-1.[address] Meehan's most recent note bmps have been stable hold lasix 40mg (19) DVT prophylaxis: Plan: xarelto Plan: Await Bx to determine treatment plan; PT/OT; Further acute stay required Admission and Anticipated Discharge Date Admission Date: July 20, 2021 Supervising Physician Co-Signing Physician Notes PA Supervision Note: I did not personally see or examine the patient today, but I verified all [place] points of NATHALIA Ruvalcaba's assessment and plan with the following exceptions/additions: None Subjective No acute events overnight. Reports feeling a bit stronger. Multiple providers and nurses did encourage patient on getting moving and working with therapy. Will discus with therapy to try and do new evaluation. Still requiring minimal 2 person assist and therefore would not be able to return home safely alone at this time. Multiple reference labs are still pending. Review of Systems Review of Systems: All systems reviewed & are unremarkable except as noted in Subjective Physical Exam Physical Exam: PHYSICAL EXAM General Appearance: Thin elderly woman in NAD who is A&O x 3 HEENT: Head is normocephalic/atraumatic; Hearing grossly intact; Mucous membranes moist Neck: Supple; Trachea midline; Neg JVD Heart: regular rate; faint murmur Lungs: CTA in all lung cam bilaterally; Respirations unlabored; Neg accessory muscle use Abdomen: Soft, non-tender, non-distended; Positive BS x 4 quadrants Extremities: Neg cyanosis; trace edema b/l legs Neurological: Speech clear; significant proximal muscle weakness of hips (same today, flexion is 3-4/5 at best); distal strength of feet/ankles - dorsiflexion/plantarflexion - 5/5; handgrip 5/5; proximal muscle weakness of b/l shoulder region although L shoulder has significant rotator cuff issues (muscle wasting noted of the leandra-shoulder muscles) but able to lift arms to the level of the shoulder today, decreased strength against resistance, decreased muscle tone, glove/stocking paresthesia with decreased sensation to pinprick 0/4 reflexes, ?1/4 quad tendon, no clonus or pronator drift appreciated Psychiatric: Appropriate mood/affect; intermittent confusion Skin: Normal Color; Warm/Dry; ecchymosis and old scabbed ulcerations on shins Results & Data Results & Data ([facility]) Vital Signs (Past 12 Hours) Vital Signs Temp Pulse Pulse Resp BP Pulse Ox 07/27/21 16:25 36.7 C 54 L 18 124/66 94 07/27/21 07:00 36.8 C 63 18 118/69 97 PG Care Time/CCT Total # of Minutes Spent Total Time Spent with Patient: Total time spent is greater than 50% in coordination of care (as documented) at patient's floor/unit and/or counseling patient: Coding Level of Care Code 10477 Subseq Hosp Care Lvl 3 Diagnoses Myopathy G72.9 Adrenal insufficiency E27.40 Elevated creatine kinase level R74.8 UTI (urinary tract infection) N39.0 Hypoglycemia E16.2 Liver mass, right lobe R16.0 Abnormal LFTs R79.89 Folate deficiency E53.8 Copper deficiency E61.0 Macrocytic anemia D53.9 CAD (coronary artery disease) I25.10 Associated angina: without angina Coronary Disease-Associated Artery/Lesion type: [place] artery [place] vs. transplanted heart: [place] heart High serum ferritin R79.89 Paroxysmal atrial flutter I48.92 Generalized weakness R53.1 Multiple pulmonary nodules determined by computed tomography of lung R91.8 Severe protein-calorie malnutrition E43 Temporal lobe epilepsy G40.109 Chronic kidney disease, stage IV (severe) N18.4 DVT prophylaxis Z29.9 (1) CAD (coronary artery disease) Associated angina: without angina Coronary Disease-Associated Artery/Lesion type: [place] artery [place] vs. transplanted heart: [place] heart Qualified Code(s): I25.10 - Atherosclerotic heart disease of [place] coronary artery without angina pectoris
[2021-07-27] MEDS: GABAPENTIN 300 MG CAP PO SCH (20:56)
[2021-07-28 04:41] LABS: Hepatitis A Antibody IgM NON-REACTIVE (NON-REACTIVE); Hepatitis B Core Antibody IgM NON-REACTIVE (NON-REACTIVE)
[2021-07-28] MEDS: ACETAMINOPHEN 325 MG TAB PO PRN ×2 (05:20→09:12)
[2021-07-28] MEDS: ISOSORBIDE MONO EXTENDED REL 60 MG TABCR PO SCH (08:57)
[2021-07-28] MEDS: FOLIC ACID 1 MG TAB PO SCH (08:57)
[2021-07-28] MEDS: METOPROLOL SUCC 50MG EXT REL TAB PO SCH ×2 (08:57→20:16)
[2021-07-28] MEDS: POTASSIUM CHLORIDE CRTAB 20 MEQ TABCR PO SCH (08:57)
[2021-07-28] MEDS: predniSONE 20 MG TAB PO SCH ×2 (08:57→16:58)
[2021-07-28] MEDS: CEROVITE ADV FORMULA TAB PO SCH (08:58)
[2021-07-28] MEDS: prednisoLONE acetate 1% OP SUSP 5 ML BTL OP SCH (08:58)
[2021-07-28] MEDS: RANOLAZINE 500 MG ER TAB PO SCH ×2 (08:58→20:16)
[2021-07-28] MEDS: LIDOCAINE 5% 1 PATCH TD SCH (08:59)
[2021-07-28] MEDS: CLOPIDOGREL BISULFATE 75 MG TAB PO SCH (08:59)
[2021-07-28 09:20] LABS: Creatinine Clr Calc Pharmacy 24.5 ml/min; Est GFR (African American) 42.2 ml/min; Est GFR (Non-African American) 36.4 ml/min
[2021-07-28] MEDS: INSULIN ASPART PER UNIT SC SCH ×4 (09:49→20:53)
[2021-07-28 10:25] LABS: Hepatitis B Surf Ag Rflx Conf Neg (Neg)
[2021-07-28 10:55] LABS: Hepatitis C IgG 13Yrs+Old_Rflx Neg (Neg)
[2021-07-28] MEDS: VANCOMYCIN HCL 500 MG in DEXTROSE 5% 100 ML IV SCH (16:57)
[2021-07-28] MEDS: DIGOXIN 0.125 MG TAB PO SCH (16:58)
[2021-07-28] MEDS: RIVAROXABAN 15 MG TAB PO SCH (17:00)
[2021-07-28] MEDS: CALCITRIOL 0.25 MCG CAPSULE PO SCH (17:00)
--- NOTE | 2021-07-28 18:57 | Hospitalist Progress Note ---
Date of Service July 28, 2021 Assessment & Plan (1) Myopathy: Plan: She has had severe weakness at home - essentially cannot stand or walk. SIGNIFICANT, has been progressive. Proximal weakness as well as glove/stocking paresthesias. Diagnosed with adrenal insufficiency as well (prior admits n/v/abd pain/diarrhea) and started on prednisone 20mg PO BID 07/23 as below, and this has made improvements Improvement in UE strength/mobility today, continued LE symptoms -- still requiring max assist of 2 for transfers/mobility ESR/CRP not elevated - myositis unlikely. * --> Checking urine myoglobin -- PENDING CK 2229 peaked --> down to 359. (She did have a fall but it was 2-3 weeks ago thus rhabdomyolysis from that fall - this far out - is unlikely.) Lipitor placed on hold -- since discontinued and checking HMG-CoA antibody --> pending LFTs previously normal -- Had been slightly improving but then placed on fluconazole for rasheed in urine * --> held further fluconazole for now (was on ceftriaxone for UTI, since change to complete with Vanco) * --> LFTs continue to trend down * If proven to be autoimmune myopathy could consider IVIG or other immune suppressive treatment B12 wnl, TSH wnl earlier last month. Lyme Negative. Neuro consulted - discussed with Dr. Velez again today main beneficial piece will be the reference labs and biopsy to better depict the treatment plan * --> MRI Brain: no acute findings, no intracranial mass/pathologic enhancement. 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 No associated cord signal abnormality.. Moderate central canal stenosis at C3-C4 and C5-C6, as described above.Multilevel neural foraminal stenosis. Normal cervical cord signal and caliber. No fx Ortho consulted * Dr. Thakur reviewed imaging and did feel UE symptoms could be related and multifactorial. Suggested tuning patient up/additional studies as already obtained and if improvement in other symptoms and continued UE weakness can continue to september recommendations if patient is surgical candidate. When talked with family they were under the impression she should avoid surgery given her cardiac history General surgery consulted/signed off * Muscle Bx completed on 07/26 - pending results * Can resume Xarelto/Plavix Patient is refusing PT/OT while in the hospital and refusing any form of rehab on discharge (2) Adrenal insufficiency: Plan: Cosyntropin stim test - failed such. Baseline cortisol was 15, but she had NO rise in cortisol level with 1mcg cosyntropin x 1. This suggests adrenal insufficiency. Adrenal insufficiency would certainly explain her low sugars, dizziness, fatigue, and perhaps even some of her chronic GI complaints. Due to stress of multiple concurrent illnesses will start with higher than typical replacement doses -started prednisone 20mg BID 07/23 Gradually wean to replacement doses (hydrocortisone 15mg am, hydrocortisone 5mg pm -- or prednisone equivalents). --> Discussion with neuro rec'd to continue higher doses for several days to see if helps with weakness ACTH level -- pending (3) Elevated creatine kinase level: Plan: medication vs autoimmune process? See above statin discontinued; no fall/trauma reported recently (4) UTI (urinary tract infection): Plan: 2nd to enterococcus - PCN/amp resistant, with albicans Was on Rocephin previously, got 3 doses of fluconazole as above (d/c given LFTs) and changed to Vancomycin IV 07/24 and would plan 7 day course (D/C July 30) (5) Hypoglycemia: Plan: Suspect combination of very poor oral intake, poor hepatic gluconeogenesis, poor glycogen stores, and now adrenal insufficiency to blame. Now with steroids has needed insulin coverage and monitor - Last A1c 5 but possibly skewed in setting of frequent lows, anemia, CKD -- will review her previous diabetes notes but may stabilize once on maintenance hydrocortisone but may need some coverage (6) Liver mass, right lobe: Plan: she had a bx in 2020 showing focal fibrosis? however, given the LFTs being high, I obtained repeat MRI abdomen/liver this did NOT show any remaining mass? AFP -- 1.6 (7) Abnormal LFTs: Plan: - Intrinsic liver disease vs viral vs other? HOLD STATIN -- discontinued for now, see above Liver anatomically normal on MRI. No biliary tract disease seen. repeat LFTs today still elevated but improving hepatitis panel negative (8) Folate deficiency: Plan: cont folic acid 1mg po daily. 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 repeated level given her ongoing macrocytosis to ensure she does not need replacement again -- pending (10) Macrocytic anemia: Plan: folate def; copper def s/p 1 unit PRBCs earlier this admission. improved H/H and will monitor (11) CAD (coronary artery disease): Plan: noted -- CAD s/p CABG x 1 (2015) and s/p SVG to RCA Graft Stent 01/06/21, Anomalous Circumflex Coronary Artery hold Lipitor due to high LFTs cont plavix cont metoprolol cont ranexa cont imdur some of her chronic STEPHENS/chest tightness could be from CAD, some could be from anemia in setting of CAD (denied those symptoms 07/25) (12) High serum ferritin: Plan: noted has had w/u for this by heme/onc in the past no hemochromatosis based on records (13) Paroxysmal atrial flutter: Plan: and paroxysmal a.fib cont BB cont xarelto (14) Generalized weakness: Plan: likely multifactorial - anemia, UTI, ?concern for malignancy, nutritional deficiencies, concern for myopathy, adrenal insufficiency as above. 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 (18) Chronic kidney disease, stage IV (severe): Plan: baseline CrCl 15-30. Baseline cr 1.1-1.[address] Meehan's most recent note bmps have been stable hold lasix 40mg (19) DVT prophylaxis: Plan: xarelto Plan: Await Bx to determine treatment plan Had a long conversation with patient and her family with her permission. Patient is refusing in-house therapy and refusing any rehab on discharge. Ultimately she can make the decision of what she wants which is to return home. Did discuss that she is requiring two people to assist her here but she insists that her lift chair and 4 wheel rolling walker helps her mobility more than what we have here. She got more irritated as discussing this but did try to engage her on what her plan would be if she was alone and needed help but she would not give a clear plan. Her family is willing to have her come to their home to help with mobility if she is willing but this was offered in the past. They have discussed different options in the past with her and she did not want to do them. They understand that they would want to respect her wishes but do want her to be safe. We will see as we get closer to discharge if her thoughts change or how she does mobility [place]. Admission and Anticipated Discharge Date Admission Date: July 20, 2021 Supervising Physician Co-Signing Physician Notes PA Supervision Note: I did not personally see or examine the patient today, but I verified all [place]ares points of NATHALIA Ruvalcaba's assessment and plan with the following exceptions/additio ns: None Subjective No acute events overnight. Reports feeling about the same and just has general aches and pains. Still assist of 2 for mobility. She does not want to go to a rehab facility or participate in therapy here in the hospital. Still awaiting biopsy results to help guide the treatment plan. After talking about therapy/rehab/home safety she would make minimal eye contact. She verbalizes no new complaints Review of Systems Review of Systems: All systems reviewed & are unremarkable except as noted in Subjective Physical Exam Physical Exam: PHYSICAL EXAM General Appearance: Thin elderly woman in NAD who is A&O x 3 HEENT: Head is normocephalic/atraumatic; Hearing grossly intact; Mucous membranes moist Neck: Supple; Trachea midline; Neg JVD Heart: regular rate; faint murmur Lungs: CTA in all lung cam bilaterally; Respirations unlabored; Neg accessory muscle use Abdomen: Soft, non-tender, non-distended; Positive BS x 4 quadrants Extremities: Neg cyanosis; trace edema b/l legs Psychiatric: Appropriate mood/affect; irritable intermittently Skin: Normal Color; Warm/Dry; ecchymosis and old scabbed ulcerations on shins Results & Data Results & Data ([facility]) Vital Signs (Past 12 Hours) Vital Signs Temp Pulse Pulse Resp BP Pulse Ox 07/28/21 16:58 68 03/02/22 16:00 36.5 C 72 18 112/70 95 07/28/21 07:43 36.3 C L 59 L 18 135/73 94 PG Care Time/CCT Total # of Minutes Spent Total Time Spent with Patient: Total time spent is greater than 50% in coordination of care (as documented) at patient's floor/unit and/or counseling patient: Coding Level of Care Code 63983 Subseq Hosp Care Lvl 3 Diagnoses Myopathy G72.9 Adrenal insufficiency E27.40 Elevated creatine kinase level R74.8 UTI (urinary tract infection) N39.0 Hypoglycemia E16.2 Liver mass, right lobe R16.0 Abnormal LFTs R79.89 Folate deficiency E53.8 Copper deficiency E61.0 Macrocytic anemia D53.9 CAD (coronary artery disease) I25.10 Associated angina: without angina Coronary Disease-Associated Artery/Lesion type: [place] artery [place] vs. transplanted heart: [place] heart High serum ferritin R79.89 Paroxysmal atrial flutter I48.92 Generalized weakness R53.1 Multiple pulmonary nodules determined by computed tomography of lung R91.8 Severe protein-calorie malnutrition E43 Temporal lobe epilepsy G40.109 Chronic kidney disease, stage IV (severe) N18.4 DVT prophylaxis Z29.9 (1) CAD (coronary artery disease) Associated angina: without angina Coronary Disease-Associated Artery/Lesion type: [place] artery [place] vs. transplanted heart: [place] heart Qualified Code(s): I25.10 - Atherosclerotic heart disease of [place] coronary artery without angina pectoris
[2021-07-28] MEDS: GABAPENTIN 300 MG CAP PO SCH (20:16)
[2021-07-29 06:47] LABS: Hematocrit (blood only) 29.4 % (37-47); Hemoglobin 9.5 g/dL (12.0-16.0); Mean Corpuscular Hemoglobin 31.8 pg (25-34); Mean Corpuscular Hgb Conc 32.3 g/dL (32-36); Mean Corpuscular Volume 98.3 fL (80-100); Platelet Count 278 K/uL (130-400); RDW Coefficient of Variation 15.7 % (11.5-14.5); Red Blood Count 2.99 M/uL (4.2-5.4); White Blood Count 15.21 K/uL (4.8-10.8)
[2021-07-29 07:17] LABS: Albumin Globulin Ratio 1.1 (0.9-2); Albumin Level 2.3 gm/dl (3.4-5.0); BUN Creatinine Ratio 28.1 (10-20); Bilirubin,Total 0.4 mg/dl (0.2-1.0); Creatinine Clr Calc Pharmacy 27.5 ml/min; Est GFR (African American) 48.6 ml/min; Est GFR (Non-African American) 41.9 ml/min; Globulin 2.1 gm/dl (2.5-4.0); Potassium 4.7 mmol/L (3.5-5.1); Total Protein 4.4 gm/dl (6.0-8.3)
[2021-07-29 09:21] LABS: Adrenocorticotropic Hormone <5 pg/mL (6-50); Copper, Serum 83 mcg/dL (70-175)
[2021-07-29] MEDS: predniSONE 20 MG TAB PO SCH ×2 (09:49→17:16)
[2021-07-29] MEDS: POTASSIUM CHLORIDE CRTAB 20 MEQ TABCR PO SCH (09:49)
[2021-07-29] MEDS: CLOPIDOGREL BISULFATE 75 MG TAB PO SCH (09:49)
[2021-07-29] MEDS: CEROVITE ADV FORMULA TAB PO SCH (09:49)
[2021-07-29] MEDS: ISOSORBIDE MONO EXTENDED REL 60 MG TABCR PO SCH (09:50)
[2021-07-29] MEDS: FOLIC ACID 1 MG TAB PO SCH (09:50)
[2021-07-29] MEDS: RANOLAZINE 500 MG ER TAB PO SCH ×2 (09:50→21:10)
[2021-07-29] MEDS: METOPROLOL SUCC 50MG EXT REL TAB PO SCH ×2 (09:50→21:11)
[2021-07-29] MEDS: prednisoLONE acetate 1% OP SUSP 5 ML BTL OP SCH (09:51)
[2021-07-29] MEDS: LIDOCAINE 5% 1 PATCH TD SCH (09:51)
[2021-07-29] MEDS: INSULIN ASPART PER UNIT SC SCH ×4 (10:00→21:09)
[2021-07-29] MEDS: VANCOMYCIN HCL 500 MG in DEXTROSE 5% 100 ML IV SCH (17:15)
[2021-07-29] MEDS: RIVAROXABAN 15 MG TAB PO SCH (17:16)
--- NOTE | 2021-07-29 18:51 | Hospitalist Progress Note ---
Date of Service July 29, 2021 Assessment & Plan (1) Myopathy: Plan: She has had severe weakness at home - essentially cannot stand or walk. SIGNIFICANT, has been progressive. Proximal weakness as well as glove/stocking paresthesias. Diagnosed with adrenal insufficiency as well (prior admits n/v/abd pain/diarrhea) and started on prednisone 20mg PO BID 07/23 as below, and this has made improvements Improvement in UE strength/mobility today, continued LE symptoms -- still requiring max assist of 2 for transfers/mobility ESR/CRP not elevated - myositis unlikely. * --> Checking urine myoglobin -- PENDING CK 2229 peaked --> down to 359. (She did have a fall but it was 2-3 weeks ago thus rhabdomyolysis from that fall - this far out - is unlikely.) Lipitor placed on hold -- since discontinued and checking HMG-CoA antibody --> pending LFTs previously normal -- Had been slightly improving but then placed on fluconazole for rasheed in urine * --> held further fluconazole for now (was on ceftriaxone for UTI, since change to complete with Vanco) * --> LFTs continue to trend down * If proven to be autoimmune myopathy could consider IVIG or other immune suppressive treatment B12 wnl, TSH wnl earlier last month. Lyme Negative. Neuro consulted - discussed with Dr. Velez again today main beneficial piece will be the reference labs and biopsy to better depict the treatment plan * --> MRI Brain: no acute findings, no intracranial mass/pathologic enhancement. 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 No associated cord signal abnormality.. Moderate central canal stenosis at C3-C4 and C5-C6, as described above.Multilevel neural foraminal stenosis. Normal cervical cord signal and caliber. No fx Ortho consulted * Dr. Thakur reviewed imaging and did feel UE symptoms could be related and multifactorial. Suggested tuning patient up/additional studies as already obtained and if improvement in other symptoms and continued UE weakness can continue to september recommendations if patient is surgical candidate. When talked with family they were under the impression she should avoid surgery given her cardiac history General surgery consulted/signed off * Muscle Bx completed on 07/26 - pending results * Can resume Xarelto/Plavix Monitor RLE and hematoma - patient states its common for her to get those - will monitor for signs of infection or need for evacuation Patient is refusing PT/OT while in the hospital and refusing any form of rehab on discharge (2) Adrenal insufficiency: Plan: Cosyntropin stim test - failed such. Baseline cortisol was 15, but she had NO rise in cortisol level with 1mcg cosyntropin x 1. This suggests adrenal insufficiency. Adrenal insufficiency would certainly explain her low sugars, dizziness, fatigue, and perhaps even some of her chronic GI complaints. Due to stress of multiple concurrent illnesses will start with higher than typical replacement doses -started prednisone 20mg BID 07/23 Gradually wean to replacement doses (hydrocortisone 15mg am, hydrocortisone 5mg pm -- or prednisone equivalents). --> Discussion with neuro rec'd to continue higher doses for several days to see if helps with weakness ACTH level -- pending (3) Elevated creatine kinase level: Plan: medication vs autoimmune process? See above statin discontinued; no fall/trauma reported recently (4) UTI (urinary tract infection): Plan: 2nd to enterococcus - PCN/amp resistant, with albicans Was on Rocephin previously, got 3 doses of fluconazole as above (d/c given LFTs) and changed to Vancomycin IV 07/24 and would plan 7 day course (D/C July 30) (5) Hypoglycemia: Plan: Suspect combination of very poor oral intake, poor hepatic gluconeogenesis, poor glycogen stores, and now adrenal insufficiency to blame. Now with steroids has needed insulin coverage and monitor - Last A1c 5 but possibly skewed in setting of frequent lows, anemia, CKD -- will review her previous diabetes notes but may stabilize once on maintenance hydrocortisone but may need some coverage (6) Liver mass, right lobe: Plan: she had a bx in 2020 showing focal fibrosis? however, given the LFTs being high, I obtained repeat MRI abdomen/liver this did NOT show any remaining mass? AFP -- 1.6 (7) Abnormal LFTs: Plan: - Intrinsic liver disease vs viral vs other? HOLD STATIN -- discontinued for now, see above Liver anatomically normal on MRI. No biliary tract disease seen. repeat LFTs today still elevated but improving hepatitis panel negative (8) Folate deficiency: Plan: cont folic acid 1mg po daily. 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 repeated level given her ongoing macrocytosis to ensure she does not need replacement again -- pending (10) Macrocytic anemia: Plan: folate def; copper def s/p 1 unit PRBCs earlier this admission. improved H/H and will monitor (11) CAD (coronary artery disease): Plan: noted -- CAD s/p CABG x 1 (2015) and s/p SVG to RCA Graft Stent 01/06/21, Anomalous Circumflex Coronary Artery hold Lipitor due to high LFTs cont plavix cont metoprolol cont ranexa cont imdur some of her chronic STEPHENS/chest tightness could be from CAD, some could be from anemia in setting of CAD (denied those symptoms 07/25) (12) High serum ferritin: Plan: noted has had w/u for this by heme/onc in the past no hemochromatosis based on records (13) Paroxysmal atrial flutter: Plan: and paroxysmal a.fib cont BB cont xarelto (14) Generalized weakness: Plan: likely multifactorial - anemia, UTI, ?concern for malignancy, nutritional deficiencies, concern for myopathy, adrenal insufficiency as above. 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 (18) Chronic kidney disease, stage IV (severe): Plan: baseline CrCl 15-30. Baseline cr 1.1-1.[address] Meehan's most recent note bmps have been stable hold lasix 40mg (19) DVT prophylaxis: Plan: xarelto Plan: Await Bx to determine treatment plan Had a long conversation with patient and her family with her permission. Patient is refusing in-house therapy and refusing any rehab on discharge. Ultimately she can make the decision of what she wants which is to return home. Did discuss that she is requiring two people to assist her here but she insists that her lift chair and 4 wheel rolling walker helps her mobility more than what we have here. She got more irritated as discussing this but did try to engage her on what her plan would be if she was alone and needed help but she would not give a clear plan. Her family is willing to have her come to their home to help with mobility if she is willing but this was offered in the past. They have discussed different options in the past with her and she did not want to do them. They understand that they would want to respect her wishes but do want her to be safe. We will see as we get closer to discharge if her thoughts change or how she does mobility gran[place]. On 07/29 patient would like information in regards to [facility] - schedule/food/cost - to assist in making a true informed decision if this is something she would like to do. Discussed with case management Admission and Anticipated Discharge Date Admission Date: July 20, 2021 Subjective No acute events overnight. She reports she is overall feeling well but still requiring help to get up to the toilet, etc. Continues to try. Her labs continue to improve. Reference labs still pending. Tolerating a diet without issue. Review of Systems Review of Systems: All systems reviewed & are unremarkable except as noted in Subjective Physical Exam Physical Exam: PHYSICAL EXAM General Appearance: Thin elderly woman in NAD who is A&O x 3 HEENT: Head is normocephalic/atraumatic; Hearing grossly intact; Mucous membranes moist Neck: Supple; Trachea midline; Neg JVD Heart: regular rate; faint murmur Lungs: CTA in all lung cam bilaterally; Respirations unlabored; Neg accessory muscle use Abdomen: Soft, non-tender, non-distended; Positive BS x 4 quadrants Extremities: Neg cyanosis; trace edema b/l legs Psychiatric: Appropriate mood/affect; irritable intermittently Skin: Normal Color; Warm/Dry; ecchymosis and old scabbed ulcerations on shins Results & Data Results & Data ([facility]) Vital Signs (Past 12 Hours) Vital Signs Temp Pulse Resp BP BP Pulse Ox 07/29/21 16:01 36.7 C 68 16 115/73 98 07/29/21 07:39 36.9 C 60 16 132/78 98 PG Care Time/CCT Total # of Minutes Spent Total Time Spent with Patient: Total time spent is greater than 50% in coordination of care (as documented) at patient's floor/unit and/or counseling patient: Coding Level of Care Code 80885 Subseq Hosp Care Lvl 3 Diagnoses Myopathy G72.9 Adrenal insufficiency E27.40 Elevated creatine kinase level R74.8 UTI (urinary tract infection) N39.0 Hypoglycemia E16.2 Liver mass, right lobe R16.0 Abnormal LFTs R79.89 Folate deficiency E53.8 Copper deficiency E61.0 Macrocytic anemia D53.9 CAD (coronary artery disease) I25.10 Associated angina: without angina Coronary Disease-Associated Artery/Lesion type: [place] artery [place] vs. transplanted heart: [place] heart High serum ferritin R79.89 Paroxysmal atrial flutter I48.92 Generalized weakness R53.1 Multiple pulmonary nodules determined by computed tomography of lung R91.8 Severe protein-calorie malnutrition E43 Temporal lobe epilepsy G40.109 Chronic kidney disease, stage IV (severe) N18.4 DVT prophylaxis Z29.9 (1) CAD (coronary artery disease) Associated angina: without angina Coronary Disease-Associated Artery/Lesion type: [place] artery [place] vs. transplanted heart: [place] heart Qualified Code(s): I25.10 - Atherosclerotic heart disease of [place] coronary artery without angina pectoris
[2021-07-29] MEDS: GABAPENTIN 300 MG CAP PO SCH (21:10)
[2021-07-30] MEDS: INSULIN ASPART PER UNIT SC SCH ×4 (09:39→21:02)
[2021-07-30] MEDS: POTASSIUM CHLORIDE CRTAB 20 MEQ TABCR PO SCH (09:40)
[2021-07-30] MEDS: METOPROLOL SUCC 50MG EXT REL TAB PO SCH ×2 (09:40→21:07)
[2021-07-30] MEDS: ISOSORBIDE MONO EXTENDED REL 60 MG TABCR PO SCH (09:40)
[2021-07-30] MEDS: FOLIC ACID 1 MG TAB PO SCH (09:40)
[2021-07-30] MEDS: predniSONE 20 MG TAB PO SCH ×2 (09:40→17:23)
[2021-07-30] MEDS: CLOPIDOGREL BISULFATE 75 MG TAB PO SCH (09:41)
[2021-07-30] MEDS: prednisoLONE acetate 1% OP SUSP 5 ML BTL OP SCH (09:41)
[2021-07-30] MEDS: RANOLAZINE 500 MG ER TAB PO SCH ×2 (09:41→21:07)
[2021-07-30] MEDS: CEROVITE ADV FORMULA TAB PO SCH (09:41)
[2021-07-30] MEDS: LIDOCAINE 5% 1 PATCH TD SCH (09:42)
[2021-07-30] MEDS: CALCITRIOL 0.25 MCG CAPSULE PO SCH (17:23)
[2021-07-30] MEDS: RIVAROXABAN 15 MG TAB PO SCH (17:23)
[2021-07-30] MEDS: DIGOXIN 0.125 MG TAB PO SCH (17:23)
--- NOTE | 2021-07-30 18:41 | Hospitalist Progress Note ---
Date of Service July 30, 2021 Assessment & Plan (1) Myopathy: Plan: She has had severe weakness at home - essentially cannot stand or walk. SIGNIFICANT, has been progressive. Proximal weakness as well as glove/stocking paresthesias. Diagnosed with adrenal insufficiency as well (prior admits n/v/abd pain/diarrhea) and started on prednisone 20mg PO BID 07/23 as below, and this has made improvements Improvement in UE strength/mobility today, continued LE symptoms -- still requiring max assist of 2 for transfers/mobility ESR/CRP not elevated - myositis unlikely. * --> Checking urine myoglobin -- PENDING CK 2229 peaked --> down to 359. (She did have a fall but it was 2-3 weeks ago thus rhabdomyolysis from that fall - this far out - is unlikely.) Lipitor placed on hold -- since discontinued and checking HMG-CoA antibody --> pending LFTs previously normal -- Had been slightly improving but then placed on fluconazole for rasheed in urine * --> held further fluconazole for now (was on ceftriaxone for UTI, since change to complete with Vanco) * --> LFTs continue to trend down * If proven to be autoimmune myopathy could consider IVIG or other immune suppressive treatment B12 wnl, TSH wnl earlier last month. Lyme Negative. Neuro consulted - discussed with Dr. Velez again today main beneficial piece will be the reference labs and biopsy to better depict the treatment plan * --> MRI Brain: no acute findings, no intracranial mass/pathologic enhancement. 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 No associated cord signal abnormality.. Moderate central canal stenosis at C3-C4 and C5-C6, as described above.Multilevel neural foraminal stenosis. Normal cervical cord signal and caliber. No fx Ortho consulted * Dr. Thakur reviewed imaging and did feel UE symptoms could be related and multifactorial. Suggested tuning patient up/additional studies as already obtained and if improvement in other symptoms and continued UE weakness can continue to september recommendations if patient is surgical candidate. When talked with family they were under the impression she should avoid surgery given her cardiac history General surgery consulted/signed off * Muscle Bx completed on 07/26 - pending results * Can resume Xarelto/Plavix Monitor RLE and hematoma - patient states its common for her to get those - will monitor for signs of infection or need for evacuation Patient is refusing PT/OT while in the hospital and refusing any form of rehab on discharge -- however starting to consider options (2) Adrenal insufficiency: Plan: Cosyntropin stim test - failed such. Baseline cortisol was 15, but she had NO rise in cortisol level with 1mcg cosyntropin x 1. This suggests adrenal insufficiency. Adrenal insufficiency would certainly explain her low sugars, dizziness, fatigue, and perhaps even some of her chronic GI complaints. Due to stress of multiple concurrent illnesses will start with higher than typical replacement doses -started prednisone 20mg BID 07/23 Gradually wean to replacement doses (hydrocortisone 15mg am, hydrocortisone 5mg pm -- or prednisone equivalents). --> Discussion with neuro rec'd to continue higher doses for several days to see if helps with weakness ACTH level -- low at < 5 (3) Elevated creatine kinase level: Plan: medication vs autoimmune process? See above statin discontinued; no fall/trauma reported recently (4) UTI (urinary tract infection): Plan: 2nd to enterococcus - PCN/amp resistant, with albicans Was on Rocephin previously, got 3 doses of fluconazole as above (d/c given LFTs) and changed to Vancomycin IV 07/24 and would plan 7 day course (D/C July 30) (5) Hypoglycemia: Plan: Suspect combination of very poor oral intake, poor hepatic gluconeogenesis, poor glycogen stores, and now adrenal insufficiency to blame. Now with steroids has needed insulin coverage and monitor - Last A1c 5 but possibly skewed in setting of frequent lows, anemia, CKD -- will review her previous diabetes notes but may stabilize once on maintenance hydrocortisone but may need some coverage (6) Liver mass, right lobe: Plan: she had a bx in 2020 showing focal fibrosis? however, given the LFTs being high, I obtained repeat MRI abdomen/liver this did NOT show any remaining mass? AFP -- 1.6 (7) Abnormal LFTs: Plan: - Intrinsic liver disease vs viral vs other? HOLD STATIN -- discontinued for now, see above Liver anatomically normal on MRI. No biliary tract disease seen. repeat LFTs today still elevated but improving hepatitis panel negative (8) Folate deficiency: Plan: cont folic acid 1mg po daily. 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 repeated level given her ongoing macrocytosis to ensure she does not need replacement again -- low normal (10) Macrocytic anemia: Plan: folate def; copper low normal s/p 1 unit PRBCs earlier this admission. improved H/H and will monitor (11) CAD (coronary artery disease): Plan: noted -- CAD s/p CABG x 1 (2015) and s/p SVG to RCA Graft Stent 01/06/21, Anomalous Circumflex Coronary Artery hold Lipitor due to high LFTs cont plavix cont metoprolol cont ranexa cont imdur some of her chronic STEPHENS/chest tightness could be from CAD, some could be from anemia in setting of CAD (denied those symptoms 07/25) (12) High serum ferritin: Plan: noted has had w/u for this by heme/onc in the past no hemochromatosis based on records (13) Paroxysmal atrial flutter: Plan: and paroxysmal a.fib cont BB cont xarelto (14) Generalized weakness: Plan: likely multifactorial - anemia, UTI, ?concern for malignancy, nutritional deficiencies, concern for myopathy, adrenal insufficiency as above. 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 (18) Chronic kidney disease, stage IV (severe): Plan: baseline CrCl 15-30. Baseline cr 1.1-1.[address] Meehan's most recent note bmps have been stable hold lasix 40mg (19) DVT prophylaxis: Plan: xarelto Plan: Await Bx to determine treatment plan Had a long conversation with patient and her family with her permission. Patient is refusing in-house therapy and refusing any rehab on discharge. Ultimately she can make the decision of what she wants which is to return home. Did discuss that she is requiring two people to assist her here but she insists that her lift chair and 4 wheel rolling walker helps her mobility more than what we have here. She got more irritated as discussing this but did try to engage her on what her plan would be if she was alone and needed help but she would not give a clear plan. Her family is willing to have her come to their home to help with mobility if she is willing but this was offered in the past. They have discussed different options in the past with her and she did not want to do them. They understand that they would want to respect her wishes but do want her to be safe. We will see as we get closer to discharge if her thoughts change or how she does mobility [place]. On 07/29 patient would like information in regards to [facility] - schedule/food/cost - to assist in making a true informed decision if this is something she would like to do. Discussed with case management. Marta to reach out to patient Admission and Anticipated Discharge Date Admission Date: July 20, 2021 Subjective No acute events overnight. Reports feeling well today. Still with weakness but in good spirits. She did start having multiple loose BMs today which will be checked for c. diff given Abx for UTI. She is urinating on her own. Still awaiting reference labs. Review of Systems Review of Systems: All systems reviewed & are unremarkable except as noted in Subjective Physical Exam Physical Exam: PHYSICAL EXAM General Appearance: Thin elderly woman in NAD who is A&O x 3 HEENT: Head is normocephalic/atraumatic; Hearing grossly intact; Mucous membranes moist Neck: Supple; Trachea midline; Neg JVD Heart: regular rate; faint murmur Lungs: CTA in all lung cam bilaterally; Respirations unlabored; Neg accessory muscle use Abdomen: Soft, non-tender, non-distended; Positive BS x 4 quadrants Extremities: Neg cyanosis; trace edema b/l legs; good and equal material assistant strength; weaker L shoulder shrug compared to R with limitations to active shrugging Psychiatric: Appropriate mood/affect; irritable intermittently Skin: Normal Color; Warm/Dry; ecchymosis and old scabbed ulcerations on shins Results & Data Results & Data ([facility]) Vital Signs (Past 12 Hours) Vital Signs Temp Pulse Pulse Resp BP BP Pulse Ox 07/30/21 17:23 65 07/30/21 15:53 36.7 C 62 16 122/75 94 07/30/21 07:48 36.6 C 82 16 149/79 H 95 PG Care Time/CCT Total # of Minutes Spent Total Time Spent with Patient: Total time spent is greater than 50% in coordination of care (as documented) at patient's floor/unit and/or counseling patient: Coding Level of Care Code 92356 Subseq Hosp Care Lvl 2 Diagnoses Myopathy G72.9 Adrenal insufficiency E27.40 Elevated creatine kinase level R74.8 UTI (urinary tract infection) N39.0 Hypoglycemia E16.2 Liver mass, right lobe R16.0 Abnormal LFTs R79.89 Folate deficiency E53.8 Copper deficiency E61.0 Macrocytic anemia D53.9 CAD (coronary artery disease) I25.10 Associated angina: without angina Coronary Disease-Associated Artery/Lesion type: [place] artery [place] vs. transplanted heart: [place] heart High serum ferritin R79.89 Paroxysmal atrial flutter I48.92 Generalized weakness R53.1 Multiple pulmonary nodules determined by computed tomography of lung R91.8 Severe protein-calorie malnutrition E43 Temporal lobe epilepsy G40.109 Chronic kidney disease, stage IV (severe) N18.4 DVT prophylaxis Z29.9 (1) CAD (coronary artery disease) Associated angina: without angina Coronary Disease-Associated Artery/Lesion type: [place] artery [place] vs. transplanted heart: [place] heart Qualified Code(s): I25.10 - Atherosclerotic heart disease of [place] coronary artery without angina pectoris
[2021-07-30] MEDS: GABAPENTIN 300 MG CAP PO SCH (21:06)
[2021-07-31] MEDS: CLOPIDOGREL BISULFATE 75 MG TAB PO SCH (08:51)
[2021-07-31] MEDS: RANOLAZINE 500 MG ER TAB PO SCH ×2 (08:51→20:54)
[2021-07-31] MEDS: METOPROLOL SUCC 50MG EXT REL TAB PO SCH ×2 (08:51→20:55)
[2021-07-31] MEDS: POTASSIUM CHLORIDE CRTAB 20 MEQ TABCR PO SCH (08:51)
[2021-07-31] MEDS: CEROVITE ADV FORMULA TAB PO SCH (08:52)
[2021-07-31] MEDS: FOLIC ACID 1 MG TAB PO SCH (08:52)
[2021-07-31] MEDS: prednisoLONE acetate 1% OP SUSP 5 ML BTL OP SCH (08:52)
[2021-07-31] MEDS: predniSONE 20 MG TAB PO SCH ×2 (08:52→17:54)
[2021-07-31] MEDS: ISOSORBIDE MONO EXTENDED REL 60 MG TABCR PO SCH (08:52)
[2021-07-31] MEDS: LIDOCAINE 5% 1 PATCH TD SCH (08:53)
[2021-07-31] MEDS: INSULIN ASPART PER UNIT SC SCH ×4 (09:25→20:55)
[2021-07-31] MEDS: RIVAROXABAN 15 MG TAB PO SCH (17:54)
--- NOTE | 2021-07-31 18:48 | Hospitalist Progress Note ---
Date of Service July 31, 2021 Assessment & Plan (1) Myopathy: Plan: She has had severe weakness at home - essentially cannot stand or walk. SIGNIFICANT, has been progressive. Proximal weakness as well as glove/stocking paresthesias. Diagnosed with adrenal insufficiency as well (prior admits n/v/abd pain/diarrhea) and started on prednisone 20mg PO BID 07/23 as below, and this has made improvements Improvement in UE strength/mobility today, continued LE symptoms -- still requiring max assist of 2 for transfers/mobility ESR/CRP not elevated - myositis unlikely. * --> Checking urine myoglobin -- PENDING CK 2229 peaked --> down to 359. (She did have a fall but it was 2-3 weeks ago thus rhabdomyolysis from that fall - this far out - is unlikely.) Lipitor placed on hold -- since discontinued and checking HMG-CoA antibody --> pending LFTs previously normal -- Had been slightly improving but then placed on fluconazole for rasheed in urine * --> held further fluconazole for now (was on ceftriaxone for UTI, since change to complete with Vanco) * --> LFTs continue to trend down * If proven to be autoimmune myopathy could consider IVIG or other immune suppressive treatment B12 wnl, TSH wnl earlier last month. Lyme Negative. Neuro consulted - discussed with Dr. Velez again today main beneficial piece will be the reference labs and biopsy to better depict the treatment plan * --> MRI Brain: no acute findings, no intracranial mass/pathologic enhancement. 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 No associated cord signal abnormality.. Moderate central canal stenosis at C3-C4 and C5-C6, as described above.Multilevel neural foraminal stenosis. Normal cervical cord signal and caliber. No fx Ortho consulted * Dr. Thakur reviewed imaging and did feel UE symptoms could be related and multifactorial. Suggested tuning patient up/additional studies as already obtained and if improvement in other symptoms and continued UE weakness can continue to september recommendations if patient is surgical candidate. When talked with family they were under the impression she should avoid surgery given her cardiac history General surgery consulted/signed off * Muscle Bx completed on 07/26 - pending results * Can resume Xarelto/Plavix Monitor RLE and hematoma - patient states its common for her to get those - will monitor for signs of infection or need for evacuation (2) Adrenal insufficiency: Plan: Cosyntropin stim test - failed such. Baseline cortisol was 15, but she had NO rise in cortisol level with 1mcg cosyntropin x 1. This suggests adrenal insufficiency. Adrenal insufficiency would certainly explain her low sugars, dizziness, fatigue, and perhaps even some of her chronic GI complaints. Due to stress of multiple concurrent illnesses will start with higher than typical replacement doses -started prednisone 20mg BID 07/23 Gradually wean to replacement doses (hydrocortisone 15mg am, hydrocortisone 5mg pm -- or prednisone equivalents). --> Discussion with neuro rec'd to continue higher doses for several days to see if helps with weakness ACTH level -- low at < 5 (3) Elevated creatine kinase level: Plan: medication vs autoimmune process? See above statin discontinued; no fall/trauma reported recently (4) UTI (urinary tract infection): Plan: 2nd to enterococcus - PCN/amp resistant, with albicans Was on Rocephin previously, got 3 doses of fluconazole as above (d/c given LFTs) and changed to Vancomycin IV 07/24 and completed course (5) Hypoglycemia: Plan: Suspect combination of very poor oral intake, poor hepatic gluconeogenesis, poor glycogen stores, and now adrenal insufficiency to blame. Now with steroids has needed insulin coverage and monitor - Last A1c 5 but possibly skewed in setting of frequent lows, anemia, CKD -- will review her previous diabetes notes but may stabilize once on maintenance hydrocortisone but may need some coverage (6) Liver mass, right lobe: Plan: she had a bx in 2020 showing focal fibrosis? however, given the LFTs being high, I obtained repeat MRI abdomen/liver this did NOT show any remaining mass? AFP -- 1.6 (7) Abnormal LFTs: Plan: - Intrinsic liver disease vs viral vs other? HOLD STATIN -- discontinued for now, see above Liver anatomically normal on MRI. No biliary tract disease seen. repeat LFTs today still elevated but improving hepatitis panel negative (8) Folate deficiency: Plan: cont folic acid 1mg po daily. 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 repeated level given her ongoing macrocytosis to ensure she does not need replacement again -- low normal (10) Macrocytic anemia: Plan: folate def; copper low normal s/p 1 unit PRBCs earlier this admission. improved H/H and will monitor (11) CAD (coronary artery disease): Plan: noted -- CAD s/p CABG x 1 (2015) and s/p SVG to RCA Graft Stent 01/06/21, Anomalous Circumflex Coronary Artery hold Lipitor due to high LFTs cont plavix cont metoprolol cont ranexa cont imdur some of her chronic STEPHENS/chest tightness could be from CAD, some could be from anemia in setting of CAD (denied those symptoms 07/25) (12) High serum ferritin: Plan: noted has had w/u for this by heme/onc in the past no hemochromatosis based on records (13) Paroxysmal atrial flutter: Plan: and paroxysmal a.fib cont BB cont xarelto (14) Generalized weakness: Plan: likely multifactorial - anemia, UTI, ?concern for malignancy, nutritional deficiencies, concern for myopathy, adrenal insufficiency as above. 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 (18) Chronic kidney disease, stage IV (severe): Plan: baseline CrCl 15-30. Baseline cr 1.1-1.[address] Meehan's most recent note bmps have been stable hold lasix 40mg (19) DVT prophylaxis: Plan: xarelto Plan: Await Bx to determine treatment plan Had a long conversation with patient and her family with her permission. Patient is refusing in-house therapy and refusing any rehab on discharge. Ultimately she can make the decision of what she wants which is to return home. Did discuss that she is requiring two people to assist her here but she insists that her lift chair and 4 wheel rolling walker helps her mobility more than what we have here. She got more irritated as discussing this but did try to engage her on what her plan would be if she was alone and needed help but she would not give a clear plan. Her family is willing to have her come to their home to help with mobility if she is willing but this was offered in the past. They have discussed different options in the past with her and she did not want to do them. They understand that they would want to respect her wishes but do want her to be safe. We will see as we get closer to discharge if her thoughts change or how she does mobility granados. Now in agreement for [facility] on D/C; Updated family over the phone Admission and Anticipated Discharge Date Admission Date: July 20, 2021 Subjective No acute events overnight. Still awaiting biopsy results. Patient now interested in rehab at [facility]. She reports having frequent stool which is common for her and states she has been eating some foods that is known to cause this for her. 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; weaker L shoulder shrug compared to R with limitations to active shrugging Psychiatric: Appropriate mood/affect; irritable intermittently Skin: Normal Color; Warm/Dry; ecchymosis and old scabbed ulcerations on shins Results & Data Results & Data ([facility]) Vital Signs (Past 12 Hours) Vital Signs Temp Pulse Resp BP Pulse Ox 07/31/21 15:28 37.5 C 83 16 114/57 L 97 07/31/21 07:45 36.4 C L 78 16 152/67 H 97 PG Care Time/CCT Total # of Minutes Spent Total Time Spent with Patient: Total time spent is greater than 50% in coordination of care (as documented) at patient's floor/unit and/or counseling patient: Coding Level of Care Code 97684 Subseq Hosp Care Lvl 2 Diagnoses Myopathy G72.9 Adrenal insufficiency E27.40 Elevated creatine kinase level R74.8 UTI (urinary tract infection) N39.0 Hypoglycemia E16.2 Liver mass, right lobe R16.0 Abnormal LFTs R79.89 Folate deficiency E53.8 Copper deficiency E61.0 Macrocytic anemia D53.9 CAD (coronary artery disease) I25.10 Coronary Disease-Associated Artery/Lesion type: [place] artery [place] vs. transplanted heart: [place] heart Associated angina: without angina High serum ferritin R79.89 Paroxysmal atrial flutter I48.92 Generalized weakness R53.1 Multiple pulmonary nodules determined by computed tomography of lung R91.8 Severe protein-calorie malnutrition E43 Temporal lobe epilepsy G40.109 Chronic kidney disease, stage IV (severe) N18.4 DVT prophylaxis Z29.9 (1) CAD (coronary artery disease) Coronary Disease-Associated Artery/Lesion type: [place] artery [place] vs. transplanted heart: [place] heart Associated angina: without angina Qualified Code(s): I25.10 - Atherosclerotic heart disease of [place] coronary artery without angina pectoris
[2021-07-31] MEDS: GABAPENTIN 300 MG CAP PO SCH (20:55)
[2021-08-01] MEDS: CLOPIDOGREL BISULFATE 75 MG TAB PO SCH (09:07)
[2021-08-01] MEDS: CEROVITE ADV FORMULA TAB PO SCH (09:07)
[2021-08-01] MEDS: predniSONE 20 MG TAB PO SCH ×2 (09:07→18:04)
[2021-08-01] MEDS: METOPROLOL SUCC 50MG EXT REL TAB PO SCH ×2 (09:07→20:58)
[2021-08-01] MEDS: FOLIC ACID 1 MG TAB PO SCH (09:07)
[2021-08-01] MEDS: RANOLAZINE 500 MG ER TAB PO SCH ×2 (09:07→20:58)
[2021-08-01] MEDS: LIDOCAINE 5% 1 PATCH TD SCH (09:07)
[2021-08-01] MEDS: POTASSIUM CHLORIDE 20 MEQ/15 ML UDC PO SCH (09:08)
[2021-08-01] MEDS: prednisoLONE acetate 1% OP SUSP 5 ML BTL OP SCH (09:08)
[2021-08-01] MEDS: ISOSORBIDE MONO EXTENDED REL 60 MG TABCR PO SCH (09:08)
[2021-08-01] MEDS: INSULIN ASPART PER UNIT SC SCH ×4 (09:09→20:55)
[2021-08-01] MEDS: DIGOXIN 0.125 MG TAB PO SCH (18:04)
[2021-08-01] MEDS: RIVAROXABAN 15 MG TAB PO SCH (18:04)
--- NOTE | 2021-08-01 19:43 | Hospitalist Progress Note ---
Date of Service August 01, 2021 Assessment & Plan (1) Myopathy: Plan: She has had severe weakness at home - essentially cannot stand or walk. SIGNIFICANT, has been progressive. Proximal weakness as well as glove/stocking paresthesias. Diagnosed with adrenal insufficiency as well (prior admits n/v/abd pain/diarrhea) and started on prednisone 20mg PO BID 07/23 as below, and this has made improvements Improvement in UE strength/mobility today, continued LE symptoms -- still requiring max assist of 2 for transfers/mobility; needs encouragement ESR/CRP not elevated - myositis unlikely. * --> Checking urine myoglobin -- unable to test "exceeds stability for testing" CK 2229 peaked --> down to 359. Recheck in AM (She did have a fall but it was 2- 3 weeks ago thus rhabdomyolysis from that fall - this far out - is unlikely.) Lipitor placed on hold -- since discontinued and checking HMG-CoA antibody --> pending LFTs previously normal -- Had been slightly improving but then placed on fluconazole for rasheed in urine * --> held further fluconazole for now (was on ceftriaxone for UTI, since change to complete with Vanco) * --> LFTs continue to trend down * If proven to be autoimmune myopathy could consider IVIG or other immune suppressive treatment B12 wnl, TSH wnl earlier last month. Lyme Negative. Neuro consulted - discussed with Dr. Velez on Monday -- main beneficial piece will be the reference labs and biopsy to better depict the treatment plan and to continue steroids for now * --> MRI Brain: no acute findings, no intracranial mass/pathologic enhancement. 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 No associated cord signal abnormality.. Moderate central canal stenosis at C3-C4 and C5-C6, as described above.Multilevel neural foraminal stenosis. Normal cervical cord signal and caliber. No fx Ortho consulted * Dr. Thakur reviewed imaging and did feel UE symptoms could be related and multifactorial. Suggested tuning patient up/additional studies as already obtained and if improvement in other symptoms and continued UE weakness can continue to may recommendations if patient is surgical candidate. When talked with family they were under the impression she should avoid surgery given her cardiac history General surgery consulted/signed off * Muscle Bx completed on 07/26 - pending results * Can resume Xarelto/Plavix Monitor RLE and hematoma - patient states its common for her to get those - will monitor for signs of infection or need for evacuation (2) Adrenal insufficiency: Plan: Cosyntropin stim test - failed such. Baseline cortisol was 15, but she had NO rise in cortisol level with 1mcg cosyntropin x 1. This suggests adrenal insufficiency. Adrenal insufficiency would certainly explain her low sugars, dizziness, fa tigue, and perhaps even some of her chronic GI complaints. Due to stress of multiple concurrent illnesses will start with higher than typical replacement doses -started prednisone 20mg BID 07/23 Gradually wean to replacement doses (hydrocortisone 15mg am, hydrocortisone 5mg pm -- or prednisone equivalents). --> Discussion with neuro rec'd to continue higher doses for several days to see if helps with weakness ACTH level -- low at < 5 (3) Elevated creatine kinase level: Plan: medication vs autoimmune process? See above statin discontinued; no fall/trauma reported recently (4) UTI (urinary tract infection): Plan: 2nd to enterococcus - PCN/amp resistant, with albicans Was on Rocephin previously, got 3 doses of fluconazole as above (d/c given LFTs) and changed to Vancomycin IV 07/24 and completed course (5) Hypoglycemia: Plan: Suspect combination of very poor oral intake, poor hepatic gluconeogenesis, poor glycogen stores, and now adrenal insufficiency to blame. Now with steroids has needed insulin coverage and monitor - Last A1c 5 but possibly skewed in setting of frequent lows, anemia, CKD -- will review her previous diabetes notes but may stabilize once on maintenance hydrocortisone but may need some coverage (6) Liver mass, right lobe: Plan: she had a bx in 2020 showing focal fibrosis? however, given the LFTs being high, I obtained repeat MRI abdomen/liver this did NOT show any remaining mass? AFP -- 1.6 (7) Abnormal LFTs: Plan: - Intrinsic liver disease vs viral vs other? HOLD STATIN -- discontinued for now, see above Liver anatomically normal on MRI. No biliary tract disease seen. repeat LFTs today still elevated but improving hepatitis panel negative (8) Folate deficiency: Plan: cont folic acid 1mg po daily. 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 repeated level given her ongoing macrocytosis to ensure she does not need replacement again -- low normal (10) Macrocytic anemia: Plan: folate def; copper low normal s/p 1 unit PRBCs earlier this admission. improved H/H and will monitor (11) CAD (coronary artery disease): Plan: noted -- CAD s/p CABG x 1 (2015) and s/p SVG to RCA Graft Stent 01/06/21, Anomalous Circumflex Coronary Artery hold Lipitor due to high LFTs cont plavix cont metoprolol cont ranexa cont imdur some of her chronic STEPHENS/chest tightness could be from CAD, some could be from anemia in setting of CAD (denied those symptoms 07/25) (12) High serum ferritin: Plan: noted has had w/u for this by heme/onc in the past no hemochromatosis based on records (13) Paroxysmal atrial flutter: Plan: and paroxysmal a.fib cont BB cont xarelto (14) Generalized weakness: Plan: likely multifactorial - anemia, UTI, ?concern for malignancy, nutritional deficiencies, concern for myopathy, adrenal insufficiency as above. 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 (18) Chronic kidney disease, stage IV (severe): Plan: baseline CrCl 15-30. Baseline cr 1.1-1.[address] Meehan's most recent note bmps have been stable hold lasix 40mg (19) DVT prophylaxis: Plan: xarelto Plan: Await Bx to determine treatment plan Had a long conversation with patient and her family with her permission. Patient was refusing in-house therapy and refusing any rehab on discharge. Ultimately she can make the decision of what she wants which is to return home. Did discuss that she is requiring two people to assist her here but she insists that her lift chair and 4 wheel rolling walker helps her mobility more than what we have here. She got more irritated as discussing this but did try to engage her on what her plan would be if she was alone and needed help but she would not give a clear plan. Her family is willing to have her come to their home to help with mobility if she is willing but this was offered in the past. They have discussed different options in the past with her and she did not want to do them. They understand that they would want to respect her wishes but do want her to be safe. Now in agreement for [facility] on D/C; Updated family over the phone on 07/31. Await biopsy to finalize plan Admission and Anticipated Discharge Date Admission Date: July 20, 2021 Subjective No acute events overnight. Reports feeling about the same energy granados. Requests the bedpan more than going to the bedside commode. 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; weaker L shoulder shrug compared to R with limitations to active shrugging Psychiatric: Appropriate mood/affect; irritable intermittently Skin: Normal Color; Warm/Dry; ecchymosis and old scabbed ulcerations on shins Results & Data Results & Data ([facility]) Vital Signs (Past 12 Hours) Vital Signs Temp Pulse Pulse Resp BP Pulse Ox 08/01/21 18:04 70 08/01/21 14:51 36.6 C 65 16 107/66 98 PG Care Time/CCT Total # of Minutes Spent Total Time Spent with Patient: Total time spent is greater than 50% in coordination of care (as documented) at patient's floor/unit and/or counseling patient: Coding Level of Care Code 67242 Subseq Hosp Care Lvl 2 Diagnoses Myopathy G72.9 Adrenal insufficiency E27.40 Elevated creatine kinase level R74.8 UTI (urinary tract infection) N39.0 Hypoglycemia E16.2 Liver mass, right lobe R16.0 Abnormal LFTs R79.89 Folate deficiency E53.8 Copper deficiency E61.0 Macrocytic anemia D53.9 CAD (coronary artery disease) I25.10 Coronary Disease-Associated Artery/Lesion type: [place] artery [place] vs. transplanted heart: [place] heart Associated angina: without angina High serum ferritin R79.89 Paroxysmal atrial flutter I48.92 Generalized weakness R53.1 Multiple pulmonary nodules determined by computed tomography of lung R91.8 Severe protein-calorie malnutrition E43 Temporal lobe epilepsy G40.109 Chronic kidney disease, stage IV (severe) N18.4 DVT prophylaxis Z29.9 (1) CAD (coronary artery disease) Coronary Disease-Associated Artery/Lesion type: [place] artery [place] vs. transplanted heart: [place] heart Associated angina: without angina Qualified Code(s): I25.10 - Atherosclerotic heart disease of [place] coronary artery without angina pectoris
[2021-08-01] MEDS: GABAPENTIN 300 MG CAP PO SCH (20:56)
[2021-08-02 06:14] LABS: Hematocrit (blood only) 29.3 % (37-47); Hemoglobin 9.5 g/dL (12.0-16.0); Mean Corpuscular Hemoglobin 31.9 pg (25-34); Mean Corpuscular Hgb Conc 32.4 g/dL (32-36); Mean Corpuscular Volume 98.3 fL (80-100); Mean Platelet Volume 10.3 fL (7.4-10.4); Platelet Count 281 K/uL (130-400); RDW Coefficient of Variation 15.9 % (11.5-14.5); RDW Standard Deviation 57.1 fL (36.4-46.3); Red Blood Count 2.98 M/uL (4.2-5.4); White Blood Count 18.59 K/uL (4.8-10.8)
[2021-08-02 06:27] LABS: Albumin Level 2.4 gm/dl (3.4-5.0); Bilirubin,Total 0.5 mg/dl (0.2-1.0); Calcium 7.1 mg/dl (8.5-10.1); Creatinine Clr Calc Pharmacy 27.1 ml/min; Est GFR (African American) 47.6 ml/min; Est GFR (Non-African American) 41.1 ml/min; Globulin 2.4 gm/dl (2.5-4.0); Potassium 4.5 mmol/L (3.5-5.1); Total Protein 4.8 gm/dl (6.0-8.3)
[2021-08-02] MEDS: LIDOCAINE 5% 1 PATCH TD SCH (09:07)
[2021-08-02] MEDS: predniSONE 20 MG TAB PO SCH ×2 (09:07→17:41)
[2021-08-02] MEDS: CLOPIDOGREL BISULFATE 75 MG TAB PO SCH (09:07)
[2021-08-02] MEDS: RANOLAZINE 500 MG ER TAB PO SCH ×2 (09:07→20:31)
[2021-08-02] MEDS: CEROVITE ADV FORMULA TAB PO SCH (09:08)
[2021-08-02] MEDS: ISOSORBIDE MONO EXTENDED REL 60 MG TABCR PO SCH (09:08)
[2021-08-02] MEDS: FOLIC ACID 1 MG TAB PO SCH (09:08)
[2021-08-02] MEDS: METOPROLOL SUCC 50MG EXT REL TAB PO SCH ×2 (09:09→20:31)
[2021-08-02] MEDS: POTASSIUM CHLORIDE 20 MEQ/15 ML UDC PO SCH (09:09)
[2021-08-02] MEDS: prednisoLONE acetate 1% OP SUSP 5 ML BTL OP SCH (09:10)
[2021-08-02] MEDS: INSULIN ASPART PER UNIT SC SCH ×4 (09:12→21:40)
--- NOTE | 2021-08-02 09:27 | Hospitalist Progress Note ---
Date of Service August 02, 2021 Assessment & Plan (1) Myopathy: Plan: She has had severe weakness at home - essentially cannot stand or walk. SIGNIFICANT, has been progressive. Proximal weakness as well as glove/stocking paresthesias. Diagnosed with adrenal insufficiency as well (prior admits n/v/abd pain/diarrhea) and started on prednisone 20mg PO BID 07/23 as below, and this has made improvements Improvement in UE strength/mobility today, continued LE symptoms -- still requiring max assist of 2 for transfers/mobility; needs encouragement ESR/CRP not elevated - myositis unlikely. * --> Checking urine myoglobin -- unable to test "exceeds stability for testing" CK 2229 peaked --> down to 359. Recheck wnl now (She did have a fall but it was 2-3 weeks ago thus rhabdomyolysis from that fall - this far out - is unlikely.) Lipitor placed on hold -- since discontinued and checking HMG-CoA antibody --> pending LFTs previously normal -- Had been slightly improving but then placed on fluconazole for rasheed in urine * --> held further fluconazole for now (was on ceftriaxone for UTI, since change to complete with Vanco) * --> LFTs continue to trend down * If proven to be autoimmune myopathy could consider IVIG or other immune suppressive treatment B12 wnl, TSH wnl earlier last month. Lyme Negative. Neuro consulted - discussed with Dr. Velez Monday -- main beneficial piece will be the reference labs and biopsy to better depict the treatment plan and to continue steroids for now * --> MRI Brain: no acute findings, no intracranial mass/pathologic enhancement. 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 No associated cord signal abnormality.. Moderate central canal stenosis at C3-C4 and C5-C6, as described above.Multilevel neural foraminal stenosis. Normal cervical cord signal and caliber. No fx Ortho consulted * Dr. Thakur reviewed imaging and did feel UE symptoms could be related and multifactorial. Suggested tuning patient up/additional studies as already obtained and if improvement in other symptoms and continued UE weakness can continue to may recommendations if patient is surgical candidate. When talked with family they were under the impression she should avoid surgery given her cardiac history General surgery consulted/signed off * Muscle Bx completed on 07/26 - pending results * Resumed Xarelto/Plavix on 07/28 Monitor RLE and hematoma - patient states its common for her to get those - w ill monitor for signs of infection or need for evacuation Bicarb low at 17 today --> reported diarrhea after each meal. will check stool for cdiff given inpatient stay/on abx for UTI as below. Also of note, Rotovirus is going around. --> has been eating all meals per nursing but will given gentle IVF w/ bicarb for today, repeat labs in AM (2) Adrenal insufficiency: Plan: Cosyntropin stim test - failed such. Baseline cortisol was 15, but she had NO rise in cortisol level with 1mcg cosyntropin x 1. This suggests adrenal insufficiency. Adrenal insufficiency would certainly explain her low sugars, dizziness, fatigue, and perhaps even some of her chronic GI complaints. Due to stress of multiple concurrent illnesses will start with higher than typical replacement doses -started prednisone 20mg BID 07/23 and given improvement in mobility (although now weak with diarrhea and checking cdiff given inpatient status and abx on admission for UTI) prior to titrating down until biopsy results returned Gradually wean to replacement doses (hydrocortisone 15mg am, hydrocortisone 5mg pm -- or prednisone equivalents). 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 See above statin discontinued; no fall/trauma reported recently but did have several falls at home and stated she had been crawling in order to call for help at times. Unsafe at home, PT/OT SNF-- plans for [facility] CK wnl on repeat (4) UTI (urinary tract infection): Plan: 2nd to enterococcus - PCN/amp resistant, with albicans Was on Rocephin previously, got 3 doses of fluconazole as above (d/c given LFTs) and changed to Vancomycin IV 07/24 and completed course while inpatient No urinary symptoms at this time (5) Hypoglycemia: Plan: Suspect combination of very poor oral intake, poor hepatic gluconeogenesis, poor glycogen stores, and now adrenal insufficiency to blame. Now with steroids has needed insulin coverage and monitor Last A1c 5 but possibly skewed in setting of frequent lows, anemia, CKD -- will review her previous diabetes notes but may stabilize once on maintenance hydrocortisone but may need some coverage (6) Liver mass, right lobe: Plan: she had a bx in 2020 showing focal fibrosis? however, given the LFTs being high, I obtained repeat MRI abdomen/liver this did NOT show any remaining mass? AFP -- 1.6 (7) Abnormal LFTs: Plan: - Intrinsic liver disease vs viral vs other? HOLD STATIN -- discontinued for now, see above Liver anatomically normal on MRI. No biliary tract disease seen. repeat LFTs today still elevated but improving overall hepatitis panel negative (8) Folate deficiency: Plan: cont folic acid 1mg po daily. 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 repeated level given her ongoing macrocytosis to ensure she does not need replacement again -- low normal (10) Macrocytic anemia: Plan: folate def; copper low normal s/p 1 unit PRBCs earlier this admission. improved H/H and will monitor --> 9.5 same on repeat as 07/30 (11) CAD (coronary artery disease): Plan: noted -- CAD s/p CABG x 1 (2015) and s/p SVG to RCA Graft Stent 01/06/21, Anomalous Circumflex Coronary Artery hold Lipitor due to high LFTs cont plavix cont metoprolol cont ranexa cont imdur some of her chronic STEPHENS/chest tightness could be from CAD, some could be from anemia in setting of CAD (denied those symptoms 07/25) (12) High serum ferritin: Plan: noted has had w/u for this by heme/onc in the past no hemochromatosis based on records (13) Paroxysmal atrial flutter: Plan: and paroxysmal a.fib cont BB cont xarelto, resumed following muscle biopsy (14) Generalized weakness: Plan: likely multifactorial - anemia, UTI, ?concern for malignancy, nutritional deficiencies, concern for myopathy, adrenal insufficiency as above. 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 (18) Chronic kidney disease, stage IV (severe): Plan: baseline CrCl 15-30. Baseline cr 1.1-1.[address] Meehan's most recent note bmps have been stable hold lasix 40mg (reported she had only been taking 20mg PO daily) Cr 1.2 -- no overload at current but if develops any s/sx CHF would resume. stable on RA currently (19) DVT prophylaxis: Plan: xarelto Plan: Await Bx to determine treatment plan Had a long conversation with patient and her family with her permission. Patient was refusing in-house therapy and refusing any rehab on discharge. Ultimately she can make the decision of what she wants which is to return home. Did discuss that she is requiring two people to assist her here but she insists that her lift chair and 4 wheel rolling walker helps her mobility more than what we have here. She got more irritated as discussing this but did try to engage her on what her plan would be if she was alone and needed help but she would not give a clear plan. Her family is willing to have her come to their home to help with mobility if she is willing but this was offered in the past. They have discussed different options in the past with her and she did not want to do them. They understand that they would want to respect her wishes but do want her to be safe. Now in agreement for Marta on D/C; Updated family over the phone on 07/31. Await biopsy to finalize plan Admission and Anticipated Discharge Date Admission Date: July 20, 2021 Supervising Physician Co-Signing Physician Notes PA Supervision Note: I did not personally see or examine the patient today, but I verified all solares points of NATHALIA Quevedo's assessment and plan with the following exceptions/additions: None Subjective patient evaluated this morning doing well outside of having diarrhea every time she eats and issues with staff and not being able to get to the bathroom and using the bedside commode. she is upset about need for watching to ensure not falling good appetite. no nausea, mild generalized discomfort but much improved from last week. Muscle biopsy pending and then will attempt to wean steroids for her adrenal insufficiency. Possible bed at [facility] later this week. No fever, chills, chest pain, shortness of breath reported. Review of Systems Review of Systems: All systems reviewed & are unremarkable except as noted in HPI & below Physical Exam Physical Exam: General: WD/WN, thin cachectic appearing female sitting up in bed, lunch just delivered, no acute distress Mouth: slightly dry mm, no thrush Eyes: pupils equal, reactive to light, EOMI, normal visual cam by confrontation Resp: CTAB, diminished in bases, no w/c/r, on room air CV:irregularly irregular (rate controlled, 70bpm), +systolic murmur, no calf tenderness, trace edema b/l LE, pulses palpable GI: +BS, soft, non-tender (but reported mild generalized tenderness), no guarding/rigidity Psych: AOx3, intermittently irritable Neuro: answering questions appropriately, decreased shoulder shrug L>R, improvement in b/l LE weakness and able to lift legs off of bed today. improvement in proximal muscle weakness as well and increased strength against resistance Skin: small hematoma from bx site, minimal tenderness Results & Data Results & Data ([facility]) Vital Signs (Past 12 Hours) Vital Signs Temp Pulse Pulse Resp BP Pulse Ox 08/02/21 07:21 36.5 C 64 12 153/71 H 98 08/01/21 22:40 37.2 C 77 18 122/75 96 Laboratory Results 08/02/21 08/02/21 08/02/21 Range/Units 12:25 08:27 05:32 WBC (4.8-10.8) K/uL RBC (4.2-5.4) M/uL Hgb (12.0-16.0) g/dL Hct (37-47) % MCV (80-100) fL MCH (25-34) pg MCHC (32-36) g/dL RDW Std Deviation (36.4-46.3) fL RDW Coeff of Argenis (11.5-14.5) % Plt Count (130-400) K/uL MPV (7.4-10.4) fL Sodium 137 (136-145) mmol/L Potassium 4.5 (3.5-5.1) mmol/L Chloride 112 H (98-107) mmol/L Carbon Dioxide 17 L (21-32) mmol/L Anion Gap 8 (3-11) BUN 43 H (6-23) mg/dl Creatinine 1.23 H (0.6-1.2) mg/dl Est Cr Clr Drug Dosing 27.1 ml/min Est GFR ( Amer) 47.6 ml/min Est GFR (Non-Af Amer) 41.1 ml/min BUN/Creatinine Ratio 35.0 H (10-20) Glucose 118 H (70-99(Fasting)) mg/dl POC Glucose 126 H 93 (70-99) mg/dl Calcium 7.1 L (8.5-10.1) mg/dl Total Bilirubin 0.5 (0.2-1.0) mg/dl AST 45 H (13-39) U/L ALT 81 H (7-52) U/L Alkaline Phosphatase 77 (34-104) U/L Total Creatine Kinase 110 (26-192) U/L Total Protein 4.8 L (6.0-8.3) gm/dl Albumin 2.4 L (3.4-5.0) gm/dl Globulin 2.4 L (2.5-4.0) gm/dl Albumin/Globulin Ratio 1.0 (0.9-2) 08/02/21 08/01/21 08/01/21 Range/Units 05:32 20:47 17:10 WBC 18.59 H (4.8-10.8) K/uL RBC 2.98 L (4.2-5.4) M/uL Hgb 9.5 L (12.0-16.0) g/dL Hct 29.3 L (37-47) % MCV 98.3 (80-100) fL MCH 31.9 (25-34) pg MCHC 32.4 (32-36) g/dL RDW Std Deviation 57.1 H (36.4-46.3) fL RDW Coeff of Argenis 15.9 H (11.5-14.5) % Plt Count 281 (130-400) K/uL MPV 10.3 (7.4-10.4) fL Sodium (136-145) mmol/L Potassium (3.5-5.1) mmol/L Chloride (98-107) mmol/L Carbon Dioxide (21-32) mmol/L Anion Gap (3-11) BUN (6-23) mg/dl Creatinine (0.6-1.2) mg/dl Est Cr Clr Drug Dosing ml/min Est GFR ( Amer) ml/min Est GFR (Non-Af Amer) ml/min BUN/Creatinine Ratio (10-20) Glucose (70-99(Fasting)) mg/dl POC Glucose 178 H 166 H (70-99) mg/dl Calcium (8.5-10.1) mg/dl Total Bilirubin (0.2-1.0) mg/dl AST (13-39) U/L ALT (7-52) U/L Alkaline Phosphatase (34-104) U/L Total Creatine Kinase (26-192) U/L Total Protein (6.0-8.3) gm/dl Albumin (3.4-5.0) gm/dl Globulin (2.5-4.0) gm/dl Albumin/Globulin Ratio (0.9-2) PG Care Time/CCT Total # of Minutes Spent Total Time Spent with Patient: Total time spent is greater than 50% in coordination of care (as documented) at patient's floor/unit and/or counseling patient: Coding Level of Care Code 79770 Subseq Hosp Care Lvl 3 Diagnoses Myopathy G72.9 Adrenal insufficiency E27.40 Elevated creatine kinase level R74.8 UTI (urinary tract infection) N39.0 Hypoglycemia E16.2 Liver mass, right lobe R16.0 Abnormal LFTs R79.89 Folate deficiency E53.8 Copper deficiency E61.0 Macrocytic anemia D53.9 CAD (coronary artery disease) I25.10 Associated angina: without angina Coronary Disease-Associated Artery/Lesion type: [place] artery [place] vs. transplanted heart: [place] heart High serum ferritin R79.89 Paroxysmal atrial flutter I48.92 Generalized weakness R53.1 Multiple pulmonary nodules determined by computed tomography of lung R91.8 Severe protein-calorie malnutrition E43 Temporal lobe epilepsy G40.109 Chronic kidney disease, stage IV (severe) N18.4 DVT prophylaxis Z29.9 (1) CAD (coronary artery disease) Associated angina: without angina Coronary Disease-Associated Artery/Lesion type: [place] artery [place] vs. transplanted heart: [place] heart Qualified Code(s): I25.10 - Atherosclerotic heart disease of [place] coronary artery without angina pectoris
[2021-08-02] MEDS ORDERED: SODIUM BICARBONATE 8.4% 50 MEQ in SODIUM CHLORIDE 0.45 % 1,000 ML IV SCH (14:30)
[2021-08-02] MEDS: CALCITRIOL 0.25 MCG CAPSULE PO SCH (17:41)
[2021-08-02] MEDS: RIVAROXABAN 15 MG TAB PO SCH (17:55)
[2021-08-02] MEDS: GABAPENTIN 300 MG CAP PO SCH (20:31)
[2021-08-03 06:17] LABS: Basophils # (auto) 0.01 K/uL (0-0.2); Basophils % (auto) 0.1 %; Eosinophils # (auto) 0.02 K/uL (0-0.5); Eosinophils % (auto) 0.1 %; Hematocrit (blood only) 26.6 % (37-47); Hemoglobin 8.6 g/dL (12.0-16.0); Immature Granulocytes # (auto) 0.26 K/uL (0.00-0.02); Immature Granulocytes % (auto) 1.7 %; Lymphocytes # (auto) 0.74 K/uL (1.2-3.4); Mean Corpuscular Hemoglobin 31.6 pg (25-34); Mean Corpuscular Hgb Conc 32.3 g/dL (32-36); Mean Corpuscular Volume 97.8 fL (80-100); Mean Platelet Volume 9.5 fL (7.4-10.4); Monocytes # (auto) 1.53 K/uL (0.11-0.59); Monocytes % (auto) 10.3 %; Neutrophils # (auto) 12.36 K/uL (1.4-6.5); Neutrophils % (auto) 82.8 %; Platelet Count 297 K/uL (130-400); RDW Coefficient of Variation 15.8 % (11.5-14.5); RDW Standard Deviation 56.4 fL (36.4-46.3); Red Blood Count 2.72 M/uL (4.2-5.4); White Blood Count 14.92 K/uL (4.8-10.8)
[2021-08-03 06:43] LABS: Albumin Level 2.3 gm/dl (3.4-5.0); BUN Creatinine Ratio 26.4 (10-20); Bilirubin Direct 0.1 mg/dl (0-0.2); Bilirubin,Total 0.4 mg/dl (0.2-1.0); Calcium 7.8 mg/dl (8.5-10.1); Creatinine Clr Calc Pharmacy 23.1 ml/min; Est GFR (African American) 39.4 ml/min; Potassium 4.5 mmol/L (3.5-5.1); Total Protein 4.3 gm/dl (6.0-8.3)
--- NOTE | 2021-08-03 08:42 | Hospitalist Progress Note ---
Date of Service August 03, 2021 Assessment & Plan (1) Myopathy: Plan: She has had severe weakness at home - essentially cannot stand or walk. SIGNIFICANT, has been progressive. Proximal weakness as well as glove/stocking paresthesias. Diagnosed with adrenal insufficiency as well (prior admits n/v/abd pain/diarrhea) and started on prednisone 20mg PO BID 07/23 as below, and this has made improvements Improvement in UE strength/mobility today, continued LE symptoms -- still requiring max assist of 2 for transfers/mobility; needs encouragement ESR/CRP not elevated - myositis unlikely. * --> Checking urine myoglobin -- unable to test "exceeds stability for testing" CK 2229 peaked --> down to 359. Recheck wnl now (She did have a fall but it was 2-3 weeks ago thus rhabdomyolysis from that fall - this far out - is unlikely.) Lipitor placed on hold -- since discontinued and checking HMG-CoA antibody --> pending LFTs previously normal -- Had been slightly improving but then placed on fluconazole for rasheed in urine * --> held further fluconazole for now (was on ceftriaxone for UTI, since change to complete with Vanco) * --> LFTs continue to trend down, almost wnl * If proven to be autoimmune myopathy could consider IVIG or other immune suppressive treatment B12 wnl, TSH wnl earlier last month. Lyme Negative. Neuro consulted - discussed with Dr. Velez Monday -- main beneficial piece will be the reference labs and biopsy to better depict the treatment plan and to continue steroids for now * --> MRI Brain: no acute findings, no intracranial mass/pathologic enhancement. 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 No associated cord signal abnormality.. Moderate central canal stenosis at C3-C4 and C5-C6, as described above.Multilevel neural foraminal stenosis. Normal cervical cord signal and caliber. No fx Ortho consulted * Dr. Thakur reviewed imaging and did feel UE symptoms could be related and multifactorial. Suggested tuning patient up/additional studies as already obtained and if improvement in other symptoms and continued UE weakness can continue to may recommendations if patient is surgical candidate. When talked with family they were under the impression she should avoid surgery given her cardiac history General surgery consulted/signed off * Muscle Bx completed on 07/26 - pending results, could take another week, no need to keep inpatient * Resumed Xarelto/Plavix on 07/28 Monitor RLE and hematoma - patient states its common for her to get those - will monitor for signs of infection or need for evacuation Bicarb resolved after including in IVF. She did report diarrhea Also started Pepcid BID for GI proph given Xarelto/plavix and on prednisone for above Continue prednisone 20mg BID until seen in follow up for titration given improvement in symptoms (2) Adrenal insufficiency: Plan: Cosyntropin stim test - failed such. Baseline cortisol was 15, but she had NO rise in cortisol level with 1mcg cosyntropin x 1. This suggests adrenal insufficiency. Adrenal insufficiency would certainly explain her low sugars, dizziness, fatigue, and perhaps even some of her chronic GI complaints. Due to stress of multiple concurrent illnesses will start with higher than typical replacement doses -started prednisone 20mg BID 07/23 and given improvement in mobility (although now weak with diarrhea and checking cdiff given inpatient status and abx on admission for UTI) prior to titrating down until biopsy results returned outpatient * When able, gradually wean to replacement doses (hydrocortisone 15mg am, hydrocortisone 5mg pm -- or prednisone equivalents). 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 See above statin discontinued; no fall/trauma reported recently but did have several falls at home and stated she had been crawling in order to call for help at times. Unsafe at home, PT/OT SNF-- plans for [facility] CK wnl on repeat (4) UTI (urinary tract infection): Plan: 2nd to enterococcus - PCN/amp resistant, with albicans Was on Rocephin previously, got 3 doses of fluconazole as above (d/c given LFTs) and changed to Vancomycin IV 07/24 and completed course while inpatient No urinary symptoms at this time reported (5) Hypoglycemia: Plan: Suspect combination of very poor oral intake, poor hepatic gluconeogenesis, poor glycogen stores, and now adrenal insufficiency to blame. Now with steroids has needed insulin coverage and monitor Last A1c 5 but possibly skewed in setting of frequent lows, anemia, CKD -- will review her previous diabetes notes but may stabilize once on maintenance hydrocortisone but may need some coverage *Episode of hyperglycemia from candies yesterday --> limiting use. May need some coverage while on prednisone therapy like NPH daily but will monitor for now that not eating lots of sweets (6) Liver mass, right lobe: Plan: she had a bx in 2020 showing focal fibrosis? however, given the LFTs being high, I obtained repeat MRI abdomen/liver this did NOT show any remaining mass? AFP -- 1.6 (7) Abnormal LFTs: Plan: - Intrinsic liver disease vs viral vs other? HOLD STATIN -- discontinued for now, see above Liver anatomically normal on MRI. No biliary tract disease seen. repeat LFTs today still elevated but improving overall and now only ALT elevated to 70, AST 35/ALP 67 wnl hepatitis panel negative (8) Folate deficiency: Plan: cont folic acid 1mg po daily. 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 repeated level given her ongoing macrocytosis to ensure she does not need replacement again -- low normal (10) Macrocytic anemia: Plan: folate def; copper low normal s/p 1 unit PRBCs earlier this admission. improved H/H and will monitor --> 8.6 but got L overnight for dehydration/low bicarb/diarrhea day prior (Cdiff negative) CBC in AM (11) CAD (coronary artery disease): Plan: noted -- CAD s/p CABG x 1 (2015) and s/p SVG to RCA Graft Stent 01/06/21, Anomalous Circumflex Coronary Artery hold Lipitor due to high LFTs , HMG level pending as above cont plavix cont metoprolol cont ranexa cont imdur some of her chronic STEPHENS/chest tightness could be from CAD, some could be from anemia in setting of CAD (denied those symptoms 07/25) (12) High serum ferritin: Plan: noted has had w/u for this by heme/onc in the past no hemochromatosis based on records (13) Paroxysmal atrial flutter: Plan: and paroxysmal a.fib cont BB cont xarelto, resumed following muscle biopsy (14) Generalized weakness: Plan: likely multifactorial - anemia, UTI, ?concern for malignancy, nutritional deficiencies, concern for myopathy, adrenal insufficiency as above. 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 (18) Chronic kidney disease, stage IV (severe): Plan: baseline CrCl 15-30. Baseline cr 1.1-1.[address] Meehan's most recent note bmps have been stable hold lasix 40mg (reported she had only been taking 20mg PO daily) Cr 1.4 --> resuming lasix 20mg daily given increased LE edema and weakness, monitor response (19) DVT prophylaxis: Plan: xarelto Plan: Await Bx to determine treatment plan but can be followed up outpatient, continue prednisone 20mg BID for now PT/OT rec SNF --> [facility] planned. CM following. To have bed later this week Admission and Anticipated Discharge Date Admission Date: July 20, 2021 Supervising Physician Co-Signing Physician Notes NATHALIA Supervision Note: I did not personally see or examine the patient today, but I verified all solares points of NATHALIA Quevedo's assessment and plan with the following exceptions/additions: None Subjective Patient evaluated this morning Had been up in chair and on bedside commode this morning. Notes decreased diarrhea. She is still agreeable to rehab -- [facility] to have bed this week. Discussed muscle bipopsy may take longer for results but we will continue current dose of steroids. Started on pepcid for GI prophylaxis. She notes no increased reflux symptoms but feels like she has some gas pain before she ate. Daughter who was visiting last week with diarrhea, discussed viral GI bug going around but could have been that. Cdiff testing negative. She does still have weakness to her LE, some edema present and discussed restarting lasix 20mg daily and monitoring response. Continued improvement/stability of UE currently. Did have spike in BSGs yesterday afternoon -- patient states she had been munching on a bag of Werther candies and will limit intake today. Had been upset about carb counts - discussed while on therapy would continue. No fever, chills, chest pain, shortness of breath, nausea/vomiting at this time. Review of Systems Review of Systems: All systems reviewed & are unremarkable except as noted in HPI & below Physical Exam Physical Exam: General: WD/WN, thin cachectic appearing female sitting up in bed, lunch just delivered, no acute distress Mouth: mmm, no thrush Eyes: pupils equal, reactive to light, EOMI, normal visual cam by confrontation Resp: CTAB, diminished in bases, no w/c/r, on room air CV:irregularly irregular (rate controlled, 72bpm), +systolic murmur, no calf tenderness, 1+ edema b/l LE, pulses palpable GI: +BS, soft, non-tender, no guarding/rigidity Psych: AOx3, calm, cooperative and pleasant Neuro: answering questions appropriately, decreased shoulder shrug L>R, improvement in b/l LE weakness and able to lift legs off of bed today but not much against active resistance. UE strength much improved and able to raise arms above head and some increase in strength with resistance Skin: small hematoma from bx site, minimal tenderness Results & Data Results & Data ([facility]) Vital Signs (Past 12 Hours) Vital Signs Temp Pulse Pulse Resp BP BP Pulse Ox 08/03/21 07:28 36.6 C 70 17 154/72 H 99 08/02/21 22:15 36.6 C 64 14 114/65 95 Laboratory Results 08/03/21 08/03/21 08/03/21 Range/Units 08:07 05:40 05:40 WBC 14.92 H (4.8-10.8) K/uL RBC 2.72 L (4.2-5.4) M/uL Hgb 8.6 L (12.0-16.0) g/dL Hct 26.6 L (37-47) % MCV 97.8 (80-100) fL MCH 31.6 (25-34) pg MCHC 32.3 (32-36) g/dL RDW Std Deviation 56.4 H (36.4-46.3) fL RDW Coeff of Argenis 15.8 H (11.5-14.5) % Plt Count 297 (130-400) K/uL MPV 9.5 (7.4-10.4) fL Immature Gran % (Auto) 1.7 % Neut % (Auto) 82.8 % Lymph % (Auto) 5.0 % Randall % (Auto) 10.3 % Eos % (Auto) 0.1 % Baso % (Auto) 0.1 % Neut # (Auto) 12.36 H (1.4-6.5) K/uL Lymph # (Auto) 0.74 L (1.2-3.4) K/uL Randall # (Auto) 1.53 H (0.11-0.59) K/uL Eos # (Auto) 0.02 (0-0.5) K/uL Baso # (Auto) 0.01 (0-0.2) K/uL Immature Gran # (Auto) 0.26 H (0.00-0.02) K/uL Sodium 138 (136-145) mmol/L Potassium 4.5 (3.5-5.1) mmol/L Chloride 112 H (98-107) mmol/L Carbon Dioxide 21 (21-32) mmol/L Anion Gap 5 (3-11) BUN 38 H (6-23) mg/dl Creatinine 1.44 H (0.6-1.2) mg/dl Est Cr Clr Drug Dosing 23.1 ml/min Est GFR ( Amer) 39.4 ml/min Est GFR (Non-Af Amer) 34.0 ml/min BUN/Creatinine Ratio 26.4 H (10-20) Glucose 142 H (70-99(Fasting)) mg/dl POC Glucose 115 H (70-99) mg/dl Calcium 7.8 L (8.5-10.1) mg/dl Magnesium (1.7-2.4) mg/dl Total Bilirubin 0.4 (0.2-1.0) mg/dl Direct Bilirubin 0.1 (0-0.2) mg/dl AST 35 (13-39) U/L ALT 70 H (7-52) U/L Alkaline Phosphatase 67 (34-104) U/L Total Protein 4.3 L (6.0-8.3) gm/dl Albumin 2.3 L (3.4-5.0) gm/dl Stl C. diff Tox B Gene (Neg) 08/02/21 08/02/21 08/02/21 Range/Units 21:17 21:15 17:34 WBC (4.8-10.8) K/uL RBC (4.2-5.4) M/uL Hgb (12.0-16.0) g/dL Hct (37-47) % MCV (80-100) fL MCH (25-34) pg MCHC (32-36) g/dL RDW Std Deviation (36.4-46.3) fL RDW Coeff of Argenis (11.5-14.5) % Plt Count (130-400) K/uL MPV (7.4-10.4) fL Immature Gran % (Auto) % Neut % (Auto) % Lymph % (Auto) % Randall % (Auto) % Eos % (Auto) % Baso % (Auto) % Neut # (Auto) (1.4-6.5) K/uL Lymph # (Auto) (1.2-3.4) K/uL Randall # (Auto) (0.11-0.59) K/uL Eos # (Auto) (0-0.5) K/uL Baso # (Auto) (0-0.2) K/uL Immature Gran # (Auto) (0.00-0.02) K/uL Sodium (136-145) mmol/L Potassium (3.5-5.1) mmol/L Chloride (98-107) mmol/L Carbon Dioxide (21-32) mmol/L Anion Gap (3-11) BUN (6-23) mg/dl Creatinine (0.6-1.2) mg/dl Est Cr Clr Drug Dosing ml/min Est GFR ( Amer) ml/min Est GFR (Non-Af Amer) ml/min BUN/Creatinine Ratio (10-20) Glucose (70-99(Fasting)) mg/dl POC Glucose 319 H* 332 H* 219 H (70-99) mg/dl Calcium (8.5-10.1) mg/dl Magnesium (1.7-2.4) mg/dl Total Bilirubin (0.2-1.0) mg/dl Direct Bilirubin (0-0.2) mg/dl AST (13-39) U/L ALT (7-52) U/L Alkaline Phosphatase (34-104) U/L Total Protein (6.0-8.3) gm/dl Albumin (3.4-5.0) gm/dl Stl C. diff Tox B Gene (Neg) 08/02/21 08/02/21 08/02/21 Range/Units 15:56 12:25 08:27 WBC (4.8-10.8) K/uL RBC (4.2-5.4) M/uL Hgb (12.0-16.0) g/dL Hct (37-47) % MCV (80-100) fL MCH (25-34) pg MCHC (32-36) g/dL RDW Std Deviation (36.4-46.3) fL RDW Coeff of Argenis (11.5-14.5) % Plt Count (130-400) K/uL MPV (7.4-10.4) fL Immature Gran % (Auto) % Neut % (Auto) % Lymph % (Auto) % Randall % (Auto) % Eos % (Auto) % Baso % (Auto) % Neut # (Auto) (1.4-6.5) K/uL Lymph # (Auto) (1.2-3.4) K/uL Randall # (Auto) (0.11-0.59) K/uL Eos # (Auto) (0-0.5) K/uL Baso # (Auto) (0-0.2) K/uL Immature Gran # (Auto) (0.00-0.02) K/uL Sodium (136-145) mmol/L Potassium (3.5-5.1) mmol/L Chloride (98-107) mmol/L Carbon Dioxide (21-32) mmol/L Anion Gap (3-11) BUN (6-23) mg/dl Creatinine (0.6-1.2) mg/dl Est Cr Clr Drug Dosing ml/min Est GFR ( Amer) ml/min Est GFR (Non-Af Amer) ml/min BUN/Creatinine Ratio (10-20) Glucose (70-99(Fasting)) mg/dl POC Glucose 126 H 93 (70-99) mg/dl Calcium (8.5-10.1) mg/dl Magnesium (1.7-2.4) mg/dl Total Bilirubin (0.2-1.0) mg/dl Direct Bilirubin (0-0.2) mg/dl AST (13-39) U/L ALT (7-52) U/L Alkaline Phosphatase (34-104) U/L Total Protein (6.0-8.3) gm/dl Albumin (3.4-5.0) gm/dl Stl C. diff Tox B Gene Negative Cdiff Gene (Neg) 08/02/21 Range/Units 05:32 WBC (4.8-10.8) K/uL RBC (4.2-5.4) M/uL Hgb (12.0-16.0) g/dL Hct (37-47) % MCV (80-100) fL MCH (25-34) pg MCHC (32-36) g/dL RDW Std Deviation (36.4-46.3) fL RDW Coeff of Argenis (11.5-14.5) % Plt Count (130-400) K/uL MPV (7.4-10.4) fL Immature Gran % (Auto) % Neut % (Auto) % Lymph % (Auto) % Randall % (Auto) % Eos % (Auto) % Baso % (Auto) % Neut # (Auto) (1.4-6.5) K/uL Lymph # (Auto) (1.2-3.4) K/uL Randall # (Auto) (0.11-0.59) K/uL Eos # (Auto) (0-0.5) K/uL Baso # (Auto) (0-0.2) K/uL Immature Gran # (Auto) (0.00-0.02) K/uL Sodium (136-145) mmol/L Potassium (3.5-5.1) mmol/L Chloride (98-107) mmol/L Carbon Dioxide (21-32) mmol/L Anion Gap (3-11) BUN (6-23) mg/dl Creatinine (0.6-1.2) mg/dl Est Cr Clr Drug Dosing ml/min Est GFR ( Amer) ml/min Est GFR (Non-Af Amer) ml/min BUN/Creatinine Ratio (10-20) Glucose (70-99(Fasting)) mg/dl POC Glucose (70-99) mg/dl Calcium (8.5-10.1) mg/dl Magnesium 1.8 (1.7-2.4) mg/dl Total Bilirubin (0.2-1.0) mg/dl Direct Bilirubin (0-0.2) mg/dl AST (13-39) U/L ALT (7-52) U/L Alkaline Phosphatase (34-104) U/L Total Protein (6.0-8.3) gm/dl Albumin (3.4-5.0) gm/dl Stl C. diff Tox B Gene (Neg) PG Care Time/CCT Total # of Minutes Spent Total Time Spent with Patient: Total time spent is greater than 50% in coordination of care (as documented) at patient's floor/unit and/or counseling patient: Coding Level of Care Code 19058 Subseq Hosp Care Lvl 3 Diagnoses Myopathy G72.9 Adrenal insufficiency E27.40 Elevated creatine kinase level R74.8 UTI (urinary tract infection) N39.0 Hypoglycemia E16.2 Liver mass, right lobe R16.0 Abnormal LFTs R79.89 Folate deficiency E53.8 Copper deficiency E61.0 Macrocytic anemia D53.9 CAD (coronary artery disease) I25.10 Associated angina: without angina Coronary Disease-Associated Artery/Lesion type: [place] artery [place] vs. transplanted heart: [place] heart High serum ferritin R79.89 Paroxysmal atrial flutter I48.92 Generalized weakness R53.1 Multiple pulmonary nodules determined by computed tomography of lung R91.8 Severe protein-calorie malnutrition E43 Temporal lobe epilepsy G40.109 Chronic kidney disease, stage IV (severe) N18.4 DVT prophylaxis Z29.9 (1) CAD (coronary artery disease) Associated angina: without angina Coronary Disease-Associated Artery/Lesion type: [place] artery [place] vs. transplanted heart: [place] heart Qualified Code(s): I25.10 - Atherosclerotic heart disease of [place] coronary artery without angina pectoris
[2021-08-03] MEDS: POTASSIUM CHLORIDE 20 MEQ/15 ML UDC PO SCH (09:02)
[2021-08-03] MEDS: LIDOCAINE 5% 1 PATCH TD SCH (09:02)
[2021-08-03] MEDS: predniSONE 20 MG TAB PO SCH ×2 (09:03→17:44)
[2021-08-03] MEDS: ISOSORBIDE MONO EXTENDED REL 60 MG TABCR PO SCH (09:03)
[2021-08-03] MEDS: RANOLAZINE 500 MG ER TAB PO SCH ×2 (09:03→20:53)
[2021-08-03] MEDS: CLOPIDOGREL BISULFATE 75 MG TAB PO SCH (09:03)
[2021-08-03] MEDS: CEROVITE ADV FORMULA TAB PO SCH (09:03)
[2021-08-03] MEDS: METOPROLOL SUCC 50MG EXT REL TAB PO SCH ×2 (09:04→20:54)
[2021-08-03] MEDS: FOLIC ACID 1 MG TAB PO SCH (09:04)
[2021-08-03] MEDS: prednisoLONE acetate 1% OP SUSP 5 ML BTL OP SCH (09:05)
[2021-08-03] MEDS: INSULIN ASPART PER UNIT SC SCH ×4 (09:18→21:27)
[2021-08-03] MEDS: FAMOTIDINE 10 MG TABLET PO SCH ×2 (09:54→20:53)
[2021-08-03] MEDS: FUROSEMIDE 20 MG TAB PO SCH (12:44)
[2021-08-03] MEDS: DIGOXIN 0.125 MG TAB PO SCH (16:40)
[2021-08-03] MEDS: RIVAROXABAN 15 MG TAB PO SCH (17:44)
[2021-08-03] MEDS: GABAPENTIN 300 MG CAP PO SCH (20:54)
[2021-08-04] MEDS ORDERED: PHARMACY GLYCEMIC MGMT CONSULT PRN (05:54)
[2021-08-04 07:03] LABS: Hemoglobin 9.7 g/dL (12.0-16.0); Mean Corpuscular Hemoglobin 32.4 pg (25-34); Mean Corpuscular Hgb Conc 33.4 g/dL (32-36); Mean Platelet Volume 9.5 fL (7.4-10.4); Platelet Count 318 K/uL (130-400); RDW Standard Deviation 55.7 fL (36.4-46.3); Red Blood Count 2.99 M/uL (4.2-5.4); White Blood Count 15.85 K/uL (4.8-10.8)
[2021-08-04 07:30] LABS: Albumin Level 2.5 gm/dl (3.4-5.0); BUN Creatinine Ratio 29.9 (10-20); Bilirubin Direct 0.1 mg/dl (0-0.2); Bilirubin,Total 0.5 mg/dl (0.2-1.0); Calcium 7.4 mg/dl (8.5-10.1); Creatinine Clr Calc Pharmacy 28.5 ml/min; Est GFR (African American) 50.6 ml/min; Est GFR (Non-African American) 43.7 ml/min; Magnesium 1.5 mg/dl (1.7-2.4); Potassium 4.5 mmol/L (3.5-5.1); Total Protein 4.9 gm/dl (6.0-8.3)
--- NOTE | 2021-08-04 08:16 | Hospitalist Progress Note ---
Date of Service August 04, 2021 Assessment & Plan (1) Myopathy: Plan: She has had severe weakness at home - essentially cannot stand or walk. SIGNIFICANT, has been progressive. Proximal weakness as well as glove/stocking paresthesias. Diagnosed with adrenal insufficiency as well (prior admits n/v/abd pain/diarrhea) and started on prednisone 20mg PO BID 07/23 as below, and this has made improvements Improvement in UE strength/mobility today, continued LE symptoms -- still requiring max assist of 2 for transfers/mobility; needs encouragement ESR/CRP not elevated - myositis unlikely. * --> Checking urine myoglobin -- unable to test "exceeds stability for testing" CK 2229 peaked --> wnl on repeat Lipitor placed on hold -- since discontinued and checking HMG-CoA antibody --> pending * LFTs previously normal -- Had been slightly improving but then placed on fluconazole for rasheed in urine --> held further fluconazole for now (was on ceftriaxone for UTI, since change to complete with Vanco) * LFts improved * If proven to be autoimmune myopathy could consider IVIG or other immune suppressive treatment B12 wnl, TSH wnl earlier last month. Lyme Negative. Neuro consulted - discussed with Dr. Velez Monday -- main beneficial piece will be the reference labs and biopsy to better depict the treatment plan and to continue steroids for now * --> MRI Brain: no acute findings, no intracranial mass/pathologic enhancement. 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 No associated cord signal abnormality.. Moderate central canal stenosis at C3-C4 and C5-C6, as described above.Multilevel neural foraminal stenosis. Normal cervical cord signal and caliber. No fx Ortho consulted * Dr. Thakur reviewed imaging and did feel UE symptoms could be related and multifactorial. Suggested tuning patient up/additional studies as already obtained and if improvement in other symptoms and continued UE weakness can continue to september recommendations if patient is surgical candidate. When talked with family they were under the impression she should avoid surgery given her cardiac history General surgery consulted/signed off --> Muscle Bx completed on 07/26 - pending results, could take another week, no need to keep inpatient. Resumed Xarelto/Plavix on 07/28 Bicarb resolved after including in IVF. She did report diarrhea day prior, since resolved. Continue prednisone 20mg BID until seen in follow up for titration given improvement in symptoms Also started Pepcid BID for GI proph given Xarelto/plavix and on prednisone for above -- improvement in GI symptoms Lasix 20mg QAM resumed given swelling to LE and weakness --> improvement in edema and Cr 1.47--> 1.17 and BUN improved Mag 1.6 --2gm IV ordered and monitor labs in AM (2) Adrenal insufficiency: Plan: Cosyntropin stim test - failed such. Baseline cortisol was 15, but she had NO rise in cortisol level with 1mcg cosyntropin x 1. This suggests adrenal insufficiency. Adrenal insufficiency would certainly explain her low sugars, dizziness, fatigue, and perhaps even some of her chronic GI complaints. Due to stress of multiple concurrent illnesses will start with higher than typical replacement doses -started prednisone 20mg BID 07/23 and given improvement in mobility (although now weak with diarrhea and checking cdiff given inpatient status and abx on admission for UTI) prior to titrating down until biopsy results returned outpatient * When able, gradually wean to replacement doses (hydrocortisone 15mg am, hydrocortisone 5mg pm -- or prednisone equivalents). 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 See above statin discontinued; no fall/trauma reported recently but did have several falls at home and stated she had been crawling in order to call for help at times. Unsafe at home, PT/OT SNF-- plans for [facility] CK wnl on repeat (4) UTI (urinary tract infection): Plan: 2nd to enterococcus - PCN/amp resistant, with albicans Was on Rocephin previously, got 3 doses of fluconazole as above (d/c given LFTs) and changed to Vancomycin IV 07/24 and completed course while inpatient No urinary symptoms at this time reported (5) Hypoglycemia: Plan: Suspect combination of very poor oral intake, poor hepatic gluconeogenesis, poor glycogen stores, and now adrenal insufficiency to blame. Now with steroids has needed insulin coverage and monitor Last A1c 5 but possibly skewed in setting of frequent lows, anemia, CKD -- will review her previous diabetes notes but may stabilize once on maintenance hydrocortisone but may need some coverage *Episode of hyperglycemia from candies 08/02 --> limiting use. May need some coverage while on prednisone therapy like NPH daily but will monitor for now that not eating lots of sweets -- discussed with pharmacy and added Monitor BSgs (6) Liver mass, right lobe: Plan: she had a bx in 2020 showing focal fibrosis? however, given the LFTs being high, I obtained repeat MRI abdomen/liver this did NOT show any remaining mass? AFP -- 1.6 (7) Abnormal LFTs: Plan: - Intrinsic liver disease vs viral vs other? HOLD STATIN -- discontinued for now, see above Liver anatomically normal on MRI. No biliary tract disease seen. repeat LFTs today still elevated but improving overall and now only ALT elevated to 74, AST slight bump 41, ALP wnl 71 hepatitis panel negative see above (8) Folate deficiency: Plan: cont folic acid 1mg po daily. 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 repeated level given her ongoing macrocytosis to ensure she does not need replacement again -- low normal (10) Macrocytic anemia: Plan: folate def; copper low normal s/p 1 unit PRBCs earlier this admission. improved H/H and will monitor --> 9.7 (Cdiff negative) CBC in AM (11) CAD (coronary artery disease): Plan: noted -- CAD s/p CABG x 1 (2015) and s/p SVG to RCA Graft Stent 01/06/21, Anomalous Circumflex Coronary Artery hold Lipitor due to high LFTs , HMG level pending as above cont plavix cont metoprolol cont ranexa cont imdur some of her chronic STEPHENS/chest tightness could be from CAD, some could be from anemia in setting of CAD (denied those symptoms 07/25) (12) High serum ferritin: Plan: noted has had w/u for this by heme/onc in the past no hemochromatosis based on records (13) Paroxysmal atrial flutter: Plan: and paroxysmal a.fib cont BB cont xarelto, resumed following muscle biopsy (14) Generalized weakness: Plan: likely multifactorial - anemia, UTI, ?concern for malignancy, nutritional deficiencies, concern for myopathy, adrenal insufficiency as above. 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 (18) Chronic kidney disease, stage IV (severe): Plan: baseline CrCl 15-30. Baseline cr 1.1-1.[address] Meehan's most recent note bmps have been stable held lasix 40mg (reported she had only been taking 20mg PO daily) Cr 1.4 --> resuming lasix 20mg daily given increased LE edema and weakness, monitor res param (19) DVT prophylaxis: Plan: xarelto Plan: Await Bx to determine treatment plan but can be followed up outpatient, continue prednisone 20mg BID for now PT/OT rec SNF --> [facility] planned. CM following. To have bed later this week Admission and Anticipated Discharge Date Admission Date: July 20, 2021 Supervising Physician Co-Signing Physician Notes NATHALIA Supervision Note: I did not personally see or examine the patient today, but I verified all [place]ares points of NATHALIA Quevedo's assessment and plan with the following exceptions/additions: None Subjective Patient evaluated this morning. Doing better. Didn't have much of an appetitie initially last night but then got cold soup. Improvement in appetite, no nausea reported. Improvement in strength to b/l LE and less edema today Discussed NPH while on steroids to prevent hyperglycemia as these will be long lasting No fever, chills, chest pain, shortness of breath, abdominal pain (some gas pain/bloating), no nausea/vomiting. Less bowel movements reported. Questions/concerns addressed at this time. Awaiting bed at [facility] [place], hopefully tomorrow. Review of Systems Review of Systems: All systems reviewed & are unremarkable except as noted in HPI & below Physical Exam Physical Exam: General: WD/WN, thin cachectic appearing female sitting up in bed, no acute distress, improvement in mood Mouth: mmm, no thrush Eyes: pupils equal, reactive to light, EOMI, normal visual cam by confrontation Resp: CTAB, diminished in bases, no w/c/r, on room air CV:irregularly irregular (rate controlled, 72bpm), +systolic murmur, no calf tenderness, trace b/l edema, pulses palpable GI: +BS, soft, non-tender, no guarding/rigidity Psych: AOx3, calm, cooperative and pleasant Neuro: answering questions appropriately, decreased shoulder shrug L>R (improved), able to raise arms above head, improvement in strength against resistance. Lifting legs up off of bed today. R weaker than L sided LE. Improvement in overall strength against resistance Skin: warm, dry Results & Data Results & Data ([facility]) Vital Signs (Past 12 Hours) Vital Signs Temp Pulse Resp BP Pulse Ox 08/04/21 07:39 36.4 C L 64 16 168/77 H 99 08/03/21 22:37 36.8 C 61 16 123/64 97 08/03/21 20:42 65 147/75 H 99 Laboratory Results 08/04/21 08/04/21 08/03/21 Range/Units 06:40 06:40 21:04 WBC 15.85 H (4.8-10.8) K/uL RBC 2.99 L (4.2-5.4) M/uL Hgb 9.7 L (12.0-16.0) g/dL Hct 29.0 L (37-47) % MCV 97.0 (80-100) fL MCH 32.4 (25-34) pg MCHC 33.4 (32-36) g/dL RDW Std Deviation 55.7 H (36.4-46.3) fL RDW Coeff of Argenis 16.0 H (11.5-14.5) % Plt Count 318 (130-400) K/uL MPV 9.5 (7.4-10.4) fL Sodium 137 (136-145) mmol/L Potassium 4.5 (3.5-5.1) mmol/L Chloride 110 H (98-107) mmol/L Carbon Dioxide 22 (21-32) mmol/L Anion Gap 5 (3-11) BUN 35 H (6-23) mg/dl Creatinine 1.17 (0.6-1.2) mg/dl Est Cr Clr Drug Dosing 28.5 ml/min Est GFR ( Amer) 50.6 ml/min Est GFR (Non-Af Amer) 43.7 ml/min BUN/Creatinine Ratio 29.9 H (10-20) Glucose 104 H (70-99(Fasting)) mg/dl POC Glucose 154 H (70-99) mg/dl Calcium 7.4 L (8.5-10.1) mg/dl Magnesium 1.5 L (1.7-2.4) mg/dl Total Bilirubin 0.5 (0.2-1.0) mg/dl Direct Bilirubin 0.1 (0-0.2) mg/dl AST 41 H (13-39) U/L ALT 74 H (7-52) U/L Alkaline Phosphatase 71 (34-104) U/L Total Protein 4.9 L (6.0-8.3) gm/dl Albumin 2.5 L (3.4-5.0) gm/dl 08/03/21 08/03/21 Range/Units 17:09 12:00 WBC (4.8-10.8) K/uL RBC (4.2-5.4) M/uL Hgb (12.0-16.0) g/dL Hct (37-47) % MCV (80-100) fL MCH (25-34) pg MCHC (32-36) g/dL RDW Std Deviation (36.4-46.3) fL RDW Coeff of Argenis (11.5-14.5) % Plt Count (130-400) K/uL MPV (7.4-10.4) fL Sodium (136-145) mmol/L Potassium (3.5-5.1) mmol/L Chloride (98-107) mmol/L Carbon Dioxide (21-32) mmol/L Anion Gap (3-11) BUN (6-23) mg/dl Creatinine (0.6-1.2) mg/dl Est Cr Clr Drug Dosing ml/min Est GFR ( Amer) ml/min Est GFR (Non-Af Amer) ml/min BUN/Creatinine Ratio (10-20) Glucose (70-99(Fasting)) mg/dl POC Glucose 142 H 131 H (70-99) mg/dl Calcium (8.5-10.1) mg/dl Magnesium (1.7-2.4) mg/dl Total Bilirubin (0.2-1.0) mg/dl Direct Bilirubin (0-0.2) mg/dl AST (13-39) U/L ALT (7-52) U/L Alkaline Phosphatase (34-104) U/L Total Protein (6.0-8.3) gm/dl Albumin (3.4-5.0) gm/dl PG Care Time/CCT Total # of Minutes Spent Total Time Spent with Patient: Total time spent is greater than 50% in coordination of care (as documented) at patient's floor/unit and/or counseling patient: Coding Level of Care Code 89041 Subseq Hosp Care Lvl 3 Diagnoses Myopathy G72.9 Adrenal insufficiency E27.40 Elevated creatine kinase level R74.8 UTI (urinary tract infection) N39.0 Hypoglycemia E16.2 Liver mass, right lobe R16.0 Abnormal LFTs R79.89 Folate deficiency E53.8 Copper deficiency E61.0 Macrocytic anemia D53.9 CAD (coronary artery disease) I25.10 Associated angina: without angina Coronary Disease-Associated Artery/Lesion type: [place] artery [place] vs. transplanted heart: [place] heart High serum ferritin R79.89 Paroxysmal atrial flutter I48.92 Generalized weakness R53.1 Multiple pulmonary nodules determined by computed tomography of lung R91.8 Severe protein-calorie malnutrition E43 Temporal lobe epilepsy G40.109 Chronic kidney disease, stage IV (severe) N18.4 DVT prophylaxis Z29.9 (1) CAD (coronary artery disease) Associated angina: without angina Coronary Disease-Associated Artery/Lesion type: [place] artery [place] vs. transplanted heart: [place] heart Qualified Code(s): I25.10 - Atherosclerotic heart disease of [place] coronary artery without angina pectoris
[2021-08-04] MEDS: LIDOCAINE 5% 1 PATCH TD SCH (09:09)
[2021-08-04] MEDS: NovoLIN-N (NPH) PER UNIT CHARGE SQ SCH (09:10)
[2021-08-04] MEDS: RANOLAZINE 500 MG ER TAB PO SCH ×2 (09:13→21:03)
[2021-08-04] MEDS: predniSONE 20 MG TAB PO SCH ×2 (09:13→18:05)
[2021-08-04] MEDS: CLOPIDOGREL BISULFATE 75 MG TAB PO SCH (09:13)
[2021-08-04] MEDS: prednisoLONE acetate 1% OP SUSP 5 ML BTL OP SCH (09:13)
[2021-08-04] MEDS: FAMOTIDINE 10 MG TABLET PO SCH ×2 (09:14→21:01)
[2021-08-04] MEDS: ISOSORBIDE MONO EXTENDED REL 60 MG TABCR PO SCH (09:15)
[2021-08-04] MEDS: CEROVITE ADV FORMULA TAB PO SCH (09:15)
[2021-08-04] MEDS: FUROSEMIDE 20 MG TAB PO SCH (09:15)
[2021-08-04] MEDS: POTASSIUM CHLORIDE 20 MEQ/15 ML UDC PO SCH (09:15)
[2021-08-04] MEDS: FOLIC ACID 1 MG TAB PO SCH (09:15)
[2021-08-04] MEDS: INSULIN ASPART PER UNIT SC SCH ×4 (09:16→21:01)
[2021-08-04] MEDS: METOPROLOL SUCC 50MG EXT REL TAB PO SCH ×2 (09:19→21:04)
[2021-08-04] MEDS: MAGNESIUM SULFATE / D5W 1 GM/100 ML BAG IV SCH ×3 (10:37→14:23)
--- NOTE | 2021-08-04 11:33 | Pharmacy Report ---
Pharmacy Glycemic Short Note 2 - Date of Service August 04, 2021 - Glycemic Short BSG Results (Last 24 hours): 08/03/21 08/03/21 08/03/21 12:00 17:09 21:04 Glucose POC Glucose 131 H 142 H 154 H 08/04/21 08/04/21 06:40 08:15 Glucose 104 H POC Glucose 89 OUTPATIENT ANTIDIABETIC REGIMEN: * none * A1c = 5% (07/21/21) ASSESSMENT: * Pharmacy consulted to assist with determining discharge regimen due to patient going home on correction steroids for adrenal insufficiency (pred 20 mg PO BID). Plan for discharge to [facility], [facility] tomorrow. * Patient with known h/o of DM2 but has been off DM2 meds since gastric bypass surgery a few years ago * Of note, patient expressed some resistance to taking insulin. Will attempt to limit the number of administrations per day. Well controlled yesterday on only 10 units of novolog. * will trial low dose NPH * remove carb ratio PLAN FOR INPATIENT GLYCEMIC CONTROL: * Basal insulin * Start NPH 8 units SQ once daily * Bolus insulin * NovoLog per scale ACHS or Q6hrs while NPO * Goal Range: Low 110 mg/dL - High 150 mg/dL * Correction Factor: 25 mg/dL/unit * Nutritional / Prandial insulin: none
[2021-08-04] MEDS ORDERED: CALCITRIOL 0.25 MCG CAPSULE PO SCH (18:00)
[2021-08-04] MEDS: RIVAROXABAN 15 MG TAB PO SCH (18:05)
[2021-08-04] MEDS: GABAPENTIN 300 MG CAP PO SCH (21:01)
--- NOTE | 2021-08-05 08:04 | Hospitalist Progress Note ---
Date of Service August 05, 2021 Assessment & Plan (1) Myopathy: Plan: She has had severe weakness at home - essentially cannot stand or walk. SIGNIFICANT, has been progressive. Proximal weakness as well as glove/stocking paresthesias. Diagnosed with adrenal insufficiency as well (prior admits n/v/abd pain/diarrhea) and started on prednisone 20mg PO BID 07/23 as below, and this has made improvements Improvement in UE strength/mobility today, continued LE symptoms -- still requiring max assist of 2 for transfers/mobility; needs encouragement ESR/CRP not elevated - myositis unlikely. * --> Checking urine myoglobin -- unable to test "exceeds stability for testing" CK 2229 peaked --> wnl on repeat Lipitor placed on hold -- since discontinued and checking HMG-CoA antibody --> pending * LFTs previously normal -- Had been slightly improving but then placed on fluconazole for rasheed in urine --> held further fluconazole for now (was on ceftriaxone for UTI, since change to complete with Vanco) * LFts improved * If proven to be autoimmune myopathy could consider IVIG or other immune suppressive treatment B12 wnl, TSH wnl earlier last month. Lyme Negative. Neuro consulted - discussed with Dr. Velez Monday -- main beneficial piece will be the reference labs and biopsy to better depict the treatment plan and to continue steroids for now * --> MRI Brain: no acute findings, no intracranial mass/pathologic enhancement. 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 No associated cord signal abnormality.. Moderate central canal stenosis at C3-C4 and C5-C6, as described above.Multilevel neural foraminal stenosis. Normal cervical cord signal and caliber. No fx Ortho consulted * Dr. Thakur reviewed imaging and did feel UE symptoms could be related and multifactorial. Suggested tuning patient up/additional studies as already obtained and if improvement in other symptoms and continued UE weakness can continue to september recommendations if patient is surgical candidate. When talked with family they were under the impression she should avoid surgery given her cardiac history General surgery consulted/signed off --> Muscle Bx completed on 07/26 - pending results, could take another week, no need to keep inpatient. Resumed Xarelto/Plavix on 07/28 Bicarb resolved after including in IVF. She did report diarrhea day prior, since resolved. Continue prednisone 20mg BID until seen in follow up for titration given improvement in symptoms Also started Pepcid BID for GI proph given Xarelto/plavix and on prednisone for above -- improvement in GI symptoms Lasix 20mg QAM resumed given swelling to LE and weakness --> improvement in edema and Cr 1.47--> 1.17 and BUN improved Mag 1.6 --2gm IV ordered and monitor labs in AM (2) Adrenal insufficiency: Plan: Cosyntropin stim test - failed such. Baseline cortisol was 15, but she had NO rise in cortisol level with 1mcg cosyntropin x 1. This suggests adrenal insufficiency. Adrenal insufficiency would certainly explain her low sugars, dizziness, fatigue, and perhaps even some of her chronic GI complaints. Due to stress of multiple concurrent illnesses will start with higher than typical replacement doses -started prednisone 20mg BID 07/23 and given improvement in mobility (although now weak with diarrhea and checking cdiff given inpatient status and abx on admission for UTI) prior to titrating down until biopsy results returned outpatient * When able, gradually wean to replacement doses (hydrocortisone 15mg am, hydrocortisone 5mg pm -- or prednisone equivalents). 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 See above statin discontinued; no fall/trauma reported recently but did have several falls at home and stated she had been crawling in order to call for help at times. Unsafe at home, PT/OT SNF-- plans for [facility] CK wnl on repeat (4) UTI (urinary tract infection): Plan: 2nd to enterococcus - PCN/amp resistant, with albicans Was on Rocephin previously, got 3 doses of fluconazole as above (d/c given LFTs) and changed to Vancomycin IV 07/24 and completed course while inpatient No urinary symptoms at this time reported (5) Hypoglycemia: Plan: Suspect combination of very poor oral intake, poor hepatic gluconeogenesis, poor glycogen stores, and now adrenal insufficiency to blame. Now with steroids has needed insulin coverage and monitor Last A1c 5 but possibly skewed in setting of frequent lows, anemia, CKD -- will review her previous diabetes notes but may stabilize once on maintenance hydrocortisone but may need some coverage *Episode of hyperglycemia from candies 08/02 --> limiting use. May need some coverage while on prednisone therapy like NPH daily but will monitor for now that not eating lots of sweets -- discussed with pharmacy and added Monitor BSgs (6) Liver mass, right lobe: Plan: she had a bx in 2020 showing focal fibrosis? however, given the LFTs being high, I obtained repeat MRI abdomen/liver this did NOT show any remaining mass? AFP -- 1.6 (7) Abnormal LFTs: Plan: - Intrinsic liver disease vs viral vs other? HOLD STATIN -- discontinued for now, see above Liver anatomically normal on MRI. No biliary tract disease seen. repeat LFTs today still elevated but improving overall and now only ALT elevated to 74, AST slight bump 41, ALP wnl 71 hepatitis panel negative see above (8) Folate deficiency: Plan: cont folic acid 1mg po daily. 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 repeated level given her ongoing macrocytosis to ensure she does not need replacement again -- low normal (10) Macrocytic anemia: Plan: folate def; copper low normal s/p 1 unit PRBCs earlier this admission. improved H/H and will monitor --> 9.7 (Cdiff negative) CBC in AM (11) CAD (coronary artery disease): Plan: noted -- CAD s/p CABG x 1 (2015) and s/p SVG to RCA Graft Stent 01/06/21, Anomalous Circumflex Coronary Artery hold Lipitor due to high LFTs , HMG level pending as above cont plavix cont metoprolol cont ranexa cont imdur some of her chronic STEPHENS/chest tightness could be from CAD, some could be from anemia in setting of CAD (denied those symptoms 07/25) (12) High serum ferritin: Plan: noted has had w/u for this by heme/onc in the past no hemochromatosis based on records (13) Paroxysmal atrial flutter: Plan: and paroxysmal a.fib cont BB cont xarelto, resumed following muscle biopsy (14) Generalized weakness: Plan: likely multifactorial - anemia, UTI, ?concern for malignancy, nutritional deficiencies, concern for myopathy, adrenal insufficiency as above. 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 (18) Chronic kidney disease, stage IV (severe): Plan: baseline CrCl 15-30. Baseline cr 1.1-1.[address] Meehan's most recent note bmps have been stable held lasix 40mg (reported she had only been taking 20mg PO daily) Cr 1.4 --> resuming lasix 20mg daily given increased LE edema and weakness, monitor re sponse (19) DVT prophylaxis: Plan: xarelto Plan: Await Bx to determine treatment plan but can be followed up outpatient, continue prednisone 20mg BID for now PT/OT rec SNF --> [facility] planned. CM following. To have bed later this week Admission and Anticipated Discharge Date Admission Date: July 20, 2021 Results & Data Results & Data ([facility]) Vital Signs (Past 12 Hours) Vital Signs Temp Pulse Resp BP Pulse Ox 08/05/21 07:19 36.5 C 64 16 168/75 H 100 08/04/21 22:50 36.8 C 63 20 170/77 H 97 08/04/21 21:07 66 150/79 H Laboratory Results 08/04/21 08/04/21 08/04/21 Range/Units 20:34 17:19 12:01 POC Glucose 225 H 117 H 106 H (70-99) mg/dl 25-OH Vitamin D Total (30-100) ng/ml 03/09/22 03/09/22 Range/Units 08:28 08:15 POC Glucose 89 (70-99) mg/dl 25-OH Vitamin D Total 22.6 L (30-100) ng/ml PG Care Time/CCT Total # of Minutes Spent Total Time Spent with Patient: Total time spent is greater than 50% in coordination of care (as documented) at patient's floor/unit and/or counseling patient: Coding Diagnoses Myopathy G72.9 Adrenal insufficiency E27.40 Elevated creatine kinase level R74.8 UTI (urinary tract infection) N39.0 Hypoglycemia E16.2 Liver mass, right lobe R16.0 Abnormal LFTs R79.89 Folate deficiency E53.8 Copper deficiency E61.0 Macrocytic anemia D53.9 CAD (coronary artery disease) I25.10 Coronary Disease-Associated Artery/Lesion type: [place] artery [place] vs. transplanted heart: [place] heart Associated angina: without angina High serum ferritin R79.89 Paroxysmal atrial flutter I48.92 Generalized weakness R53.1 Multiple pulmonary nodules determined by computed tomography of lung R91.8 Severe protein-calorie malnutrition E43 Temporal lobe epilepsy G40.109 Chronic kidney disease, stage IV (severe) N18.4 DVT prophylaxis Z29.9 (1) CAD (coronary artery disease) Coronary Disease-Associated Artery/Lesion type: [place] artery [place] vs. transplanted heart: [place] heart Associated angina: without angina Qualified Code(s): I25.10 - Atherosclerotic heart disease of [place] coronary artery without angina pectoris
[2021-08-05 08:41] LABS: Hematocrit (blood only) 35.2 % (37-47); Hemoglobin 11.7 g/dL (12.0-16.0); Mean Corpuscular Hgb Conc 33.2 g/dL (32-36); Mean Corpuscular Volume 96.2 fL (80-100); Mean Platelet Volume 9.4 fL (7.4-10.4); Platelet Count 350 K/uL (130-400); RDW Coefficient of Variation 15.8 % (11.5-14.5); RDW Standard Deviation 54.9 fL (36.4-46.3); Red Blood Count 3.66 M/uL (4.2-5.4); White Blood Count 15.44 K/uL (4.8-10.8)
[2021-08-05] MEDS: predniSONE 20 MG TAB PO SCH (08:57)
[2021-08-05] MEDS: CEROVITE ADV FORMULA TAB PO SCH (08:58)
[2021-08-05] MEDS: CLOPIDOGREL BISULFATE 75 MG TAB PO SCH (08:59)
[2021-08-05] MEDS: FOLIC ACID 1 MG TAB PO SCH (08:59)
[2021-08-05] MEDS: FUROSEMIDE 20 MG TAB PO SCH (08:59)
[2021-08-05] MEDS: ISOSORBIDE MONO EXTENDED REL 60 MG TABCR PO SCH (09:00)
[2021-08-05] MEDS ORDERED: CALCITRIOL 0.25 MCG CAPSULE PO SCH (09:00)
[2021-08-05] MEDS: RANOLAZINE 500 MG ER TAB PO SCH (09:00)
[2021-08-05] MEDS: POTASSIUM CHLORIDE 20 MEQ/15 ML UDC PO SCH (09:02)
[2021-08-05] MEDS: LIDOCAINE 5% 1 PATCH TD SCH (09:02)
[2021-08-05] MEDS: METOPROLOL SUCC 50MG EXT REL TAB PO SCH (09:04)
[2021-08-05] MEDS: prednisoLONE acetate 1% OP SUSP 5 ML BTL OP SCH (09:06)
[2021-08-05] MEDS: FAMOTIDINE 10 MG TABLET PO SCH (09:06)
[2021-08-05] MEDS: INSULIN ASPART PER UNIT SC SCH (09:11)
[2021-08-05] MEDS: NovoLIN-N (NPH) PER UNIT CHARGE SQ SCH (09:12)
[2021-08-05 09:14] LABS: BUN Creatinine Ratio 28.9 (10-20); Bilirubin Direct 0.1 mg/dl (0-0.2); Bilirubin,Total 0.6 mg/dl (0.2-1.0); Calcium 8.2 mg/dl (8.5-10.1); Creatinine Clr Calc Pharmacy 29.2 ml/min; Est GFR (African American) 52.2 ml/min; Est GFR (Non-African American) 45.1 ml/min; Magnesium 2.2 mg/dl (1.7-2.4); Potassium 4.8 mmol/L (3.5-5.1); Total Protein 5.9 gm/dl (6.0-8.3)
--- NOTE | 2021-08-05 10:34 | Discharge Summary ---
Date of Service August 05, 2021 Admission HPI Per Admitting Provider 80yo female with a PMH of atrial fibrillation, ANDREY, CAD s/p PCI, CKD, gastric bypass, and intrahepatic cholangiocarcinoma presents with a few-month history of progressive muscular weakness and a few-day history of intermittent hypoglycemia. Patient previously carried a diagnosis of DM2 but patient returned to the prediabetic range after gastric bypass surgery; patient has been off DM2 meds since then, but continues to periodically monitor her blood sugar. Patient notes her readings over the past week (taken first thing in the AM) have ranged from 32 to 110; patient came to the hospital today after noting a BSG in the 30s. Patient endorses a few-day history of increased appetite (though noting low PO intake secondary to feeling too weak to walk to the kitchen), and a one-day history of increased urinary frequency. No pain/burning with urination. Patient denies fever, chills, headache, CP, abdominal pain, nausea, vomiting, or other symptoms. Patient was recently hospitalized at [facility] from 06/21/21 to 06/27/21 for LE weakness and recurrent falls; at that time, patient's symptoms were felt to be multifactorial in etiology including poor PO intake, acute blood loss anemia, deconditioning, and dehydration. Infectious contribution was felt to be unlikely given lack of leukocytosis, no fever, no urinary symptoms, CXR not suggestive of pneumonia, decubitus ulcer without infectious appearance. Patient was d ischarged to [facility] where she worked with PT; patient left [facility] after four days and was discharged home. Patient does not think she had much of an improvement after her stay at [facility]. Admission Exam Per Admitting Provider Constitutional: tired-appearing, NAD HEENT: NCAT, no scleral icterus, MMM CV: irregularly irregular rhythm, no murmur appreciated, extremities well- perfused, no LE edema Resp: CTABL, no wheezes/rales/rhonchi appreciated, no increased work of breathing GI: soft, nondistended, nontender, BS normoactive MSK: no gross deformities appreciated Skin: sacral decubitus ulcer noted without surrounding erythema, bandaged wounds on legs noted without surrounding erythema Neuro: alert, oriented, no focal neurologic deficit appreciated Principal Diagnosis Adrenal Insufficiency, Myopathy Discharge Exam General: WD/WN, thin cachectic appearing female sitting up in bed, no acute distress, improvement in mood Mouth: mmm, no thrush Eyes: pupils equal, reactive to light, EOMI, normal visual cam by confro ntation Resp: CTAB, diminished in bases, no w/c/r, on room air CV:irregularly irregular (rate controlled, 72bpm), +systolic murmur, no calf tenderness, trace b/l edema, pulses palpable GI: +BS, soft, non-tender, no guarding/rigidity Psych: AOx3, calm, cooperative and pleasant Neuro: answering questions appropriately, decreased shoulder shrug L>R (improved), able to raise arms above head, improved ROM, improvement in strength against resistance. Lifting legs up off of bed today. R weaker than L sided LE. Improvement in overall strength against resistance Skin: warm, dry, scattered lesions to LE (chronic, no drainage,no erythema, non- tender) covered with optifoam, small decub ulcer, does not appear infected, no significant erythema Discharge Data Allergies Allergy/AdvReac Type Severity Reaction Status Date / Time banana Allergy Unknown HIVES/ITCHI Verified 07/20/21 17:08 NG Iodinated Contrast Media Allergy Unknown "CONTRAST"- Verified 07/20/21 17:08 HIVES/ITCHI NG povidone-iodine Allergy Unknown "drops for Verified 07/20/21 17:08 [From Betadine] eye before injection" - fox/vision trouble soap [From Betadine] Allergy Unknown "drops for Verified 07/20/21 17:08 eye before injection" - fox/vision trouble Consultations 07/20/21 18:23 ED Decision to Admit Stat 07/24/21 06:44 Consult Neurology Routine 07/24/21 10:20 Consult General Surgery Routine 07/25/21 09:39 Consult Orthopedic Surgery Routine Procedures Performed Operation Date: 07/26/21 07:00 Actual Procedures p Right Leg Muscle Biopsy(Right) - Cam Dickens MD Ordered Studies Chest X-Ray 07/20/21 15:19 XR chest 1V portable CLINICAL HISTORY: weakness COMPARISON STUDY: Chest radiograph and chest CT July 06, 2021. FINDINGS: Incidental note is made of median sternotomy wires. Cardiomegaly is noted without evidence for pulmonary edema. Trace left pleural effusion is noted. Mild left basilar opacity favors atelectasis. No pneumothorax. IMPRESSION: 1. Trace left pleural effusion with left basilar opacity that favors atelectasis. 2. Cardiomegaly without evidence for pulmonary edema. ACT 112: Negative or not required by law. Electronically signed by: Hammad Aranda M.D. 07/20/2021 3:50 PM Liver Ultrasound 07/20/21 20:52 ABDOMINAL ULTRASOUND, RIGHT UPPER QUADRANT HISTORY: Abnormal LFTs. transaminitis. COMPARISON: Renal ultrasound 06/23/2021. Abdomen and pelvis CT 03/02/2021. FINDINGS: Pancreas: The pancreatic head and tail are obscured by overlying bowel gas. The remaining portions of the pancreas are within normal limits. Liver: The liver is normal in size. No hepatic masses identified. There appears to be pneumobilia within the left hepatic lobe. No intrahepatic bile duct dilatation. The portal vein is patent. Gallbladder: The gallbladder is surgically absent. CBD: The common bile duct is mostly obscured. The visualized common bile duct appears to measure proximal a 7 mm in diameter. Right kidney: No hydronephrosis. Moderate cortical thinning with increased cortical echogenicity suggestive of medical renal disease. Miscellaneous: There appears to be a small right pleural effusion. IMPRESSION: 1. Cholecystectomy. 2. Pneumobilia identified within the left hepatic lobe. 3. Moderate right cortical renal thinning with increased cortical echogenicity suggestive of medical renal disease. 4. Suggestion of a small right pleural effusion. ACT 112: Negative or not required by law. Electronically signed by: Richard Fletcher M.D. 07/21/2021 7:21 AM Abdomen MRI 07/21/21 15:01 MR abdomen wo/w con HISTORY: R hepatic lobe mass, abnl LFTs TECHNIQUE: Multiplanar multisequence MRI of the abdomen was performed both before and after the intravenous administration of 10 cc of Eovist contrast to evaluate the liver. COMPARISON STUDY: Abdomen and pelvis CT 06/21/2021. Abdominal ultrasound 07/20/2021. Abdominal MRI 11/06/2020. FINDINGS: Small bilateral pleural effusions. The heart remains enlarged. There are poststernotomy changes. Prior cholecystectomy. The spleen is unremarkable. No hydronephrosis. Bilateral perinephric edema is noted. The visualized loops of bowel show no wall thickening or obstruction. There is moderate body wall edema. Small to moderate hiatus hernia is present. Suture material within the anterior abdominal wall from prior surgery. No intra or extrahepatic bile duct dilatation. The main portal vein is patent. The hepatic lesion described in the prior MRIs is no longer visualized. No new hepatic lesions identified. Postoperative changes consistent with prior Whipple procedure. The residual main pancreatic duct remains mildly dilated measuring up to 5 mm. A few scattered cystic lesions within the pancreatic tail are again noted. Dominant lesion measures 1.5 cm. 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 IMPRESSION: 1. No hepatic lesions identified. 2. Small bilateral pleural effusions and body wall edema. 3. Small to moderate hiatus hernia, unchanged. 4. Prior Whipple procedure and cholecystectomy. 5. 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 ACT 112: Negative or not required by law. Electronically signed by: Richard Fletcher M.D. 07/22/2021 9:42 AM Brain MRI 07/24/21 10:18 MRI OF THE BRAIN WITHOUT AND WITH IV CONTRAST CLINICAL HISTORY: Progressive myelopathy. COMPARISON STUDY: MRI of the brain June 14, 2016. Head CT July 06, 2021. TECHNIQUE: Utilizing a 1.5 Gloria magnet and dedicated coil, multiplanar, multiecho imaging of the brain was performed pre and postcontrast administration. IV administration of Gadavist contrast was uneventful. Thin cut T1 post contrast imaging was performed. FINDINGS: There are no foci of restricted diffusion to suggest acute infarct. No acute intracranial hemorrhage, midline shift or mass effect is present. No intracranial mass or pathologic enhancement is present. Flow-voids for the major intracranial vessels are present. An old infarct within the inferior left cerebellar hemisphere is again noted. White matter T2 hyperintense foci are similar to prior exams and favor small vessel disease. Mild ventricular dilatation is due to central atrophy. Calvarial signal is within normal limits. Orbits are unremarkable on this nondedicated exam. IMPRESSION: 1. No acute intracranial findings. 2. No intracranial mass or pathologic enhancement. 3. Old left cerebellar infarct. 4. Moderate atrophy and T2 hyperintense foci suggestive of small vessel disease. ACT 112: Negative or not required by law. Electronically signed by: Hammad Aranda M.D. 07/24/2021 2:59 PM Cervical Spine MRI 07/24/21 10:18 MRI OF THE CERVICAL SPINE WITH AND WITHOUT CONTRAST CLINICAL HISTORY: Increasing weakness.?myelopathy. COMPARISON: Cervical spine CT June 2021. TECHNIQUE: Utilizing a 1.5 Gloria magnet and dedicated coil, multiplanar, multiecho imaging of the cervical spine was performed before and after intravenous administration Gadavist. FINDINGS: Please note that the MRI of the brain will be reported separately. Old infarct within left cerebellar hemisphere is noted. Alignment of the cervical spine is anatomic. Vertebral body heights are maintained. There is no suspicious marrow replacement. There is no cervical spine fracture. Paravertebral soft tissues are unremarkable. Cervical cord signal and caliber are normal. There is no intracanalicular mass or fluid collection. There is no abnormal enhancement within the cervical canal. Exam is mildly compromised by motion artifact although is diagnostic. C2-C3: The central canal and neural foramen are patent. C3-C4: There is moderate disc space narrowing. Posterior disc osteophyte complex contacts the ventral aspect of the cord. There is moderate central canal stenosis. Moderate left and mild right neural foraminal stenosis is present. C4-C5: Central posterior disc osteophyte complex indents the ventral aspect of the cord. This results in severe central canal stenosis. Patent AP diameter of the canal is 3 mm. No associated cord signal abnormality. Severe right and moderate left neural foraminal stenosis is present. C5-C6: Moderate disc space narrowing is noted. Posterior disc osteophyte complex indents the ventral aspect of the cord. There is moderate central canal stenosis. Moderate bilateral neural foraminal stenosis is present. C6-C7: Posterior disc osteophyte complex contacts the ventral aspect of the cord. There is no significant central canal stenosis. There is moderate to severe bilateral neural foraminal stenosis. C7-T1: Central canal and right neural foramen are patent. There is mild left neural foraminal stenosis. IMPRESSION: 1. Severe central canal stenosis at C4-C5 due to posterior disc osteophyte complex. No associated cord signal abnormality. 2. Moderate central canal stenosis at C3-C4 and C5-C6, as described above. 3. Multilevel neural foraminal stenosis, as described above. 4. Normal cervical cord signal and caliber. 5. No cervical spine fracture. ACT 112: Negative or not required by law. Electronically signed by: Hammad Aranda M.D. 07/24/2021 3:08 PM Hospital Course (1) Myopathy: She has had severe weakness at home - essentially cannot stand or walk. SIGNIFICANT, has been progressive. Proximal weakness as well as glove/stocking paresthesias. Diagnosed with adrenal insufficiency as well (prior admits n/v/abd pain/diarrhea) and started on prednisone 20mg PO BID 07/23 as below, and this has made improvements Improvement in UE strength/mobility today, continued LE symptoms -- still requiring max assist of 2 for transfers/mobility; needs encouragement ESR/CRP not elevated - myositis unlikely. * --> Checking urine myoglobin -- unable to test "exceeds stability for testing" CK 2229 peaked --> wnl on repeat Lipitor placed on hold -- since discontinued and checking HMG-CoA antibody --> pending at time of discharge, but came back later that day NEGATIVE * LFTs previously normal -- Had been slightly improving but then placed on fluconazole for rasheed in urine --> held further fluconazole (was on ceftriaxone for UTI, since change to complete with Vanco) * LFts improved --> If proven to be autoimmune myopathy could consider IVIG or other immune suppressive treatment B12 wnl, TSH wnl earlier last month. Lyme Negative. Neuro consulted - dicussed with Dr. Velez Monday -- main beneficial piece will be the reference labs and biopsy to better depict the treatment plan and to continue steroids for now * --> MRI Brain: no acute findings, no intracranial mass/pathologic enhancement. 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 No associated cord signal abnormality.. Moderate central canal stenosis at C3-C4 and C5-C6, as described above.Multilevel neural foraminal stenosis. Normal cervical cord signal and caliber. No fx Ortho consulted * Dr. Thakur reviewed imaging and did feel UE symptoms could be related and multifactorial. Suggested tuning patient up/additional studies as already obtained and if improvement in other symptoms and continued UE weakness can continue to may recommendations if patient is surgical candidate. When talked with family they were under the impression she should avoid surgery given her cardiac history General surgery consulted/signed off --> Muscle Bx completed on 07/26 - pending results, could take another week, no need to keep inpatient. Resumed Xarelto/Plavix on 07/28 Bicarb resolved after including in IVF. She did report diarrhea day prior, since resolved. Continued prednisone 20mg BID until seen in follow up for titration given improvement in symptoms Also started Pepcid BID for GI proph given Xarelto/plavix and on prednisone for above -- consider continuing at rehab if any increased reflux symptoms. None reported Resumed lasix 20mg QAM given LE edema/weakness and edema improved, Cr improved and this was continued with improvement in weakness Mag low, replaced, resolved on repeat prior to discharge Also scheduled for f/u with Dr combs at d/c as has seen her in the past (2) Adrenal insufficiency: Cosyntropin stim test - failed such. Baseline cortisol was 15, but she had NO rise in cortisol level with 1mcg cosyntropin x 1. This suggests adrenal insufficiency. Adrenal insufficiency would certainly explain her low sugars, dizziness, fatigue, and perhaps even some of her chronic GI complaints. Due to stress of multiple concurrent illnesses will start with higher than typical replacement doses -started prednisone 20mg BID 07/23 and given improvement in mobility (although now weak with diarrhea and checking cdiff given inpatient status and abx on admission for UTI) prior to titrating down until biopsy results returned outpatient * When able, gradually wean to replacement doses (hydrocortisone 15mg am, hydrocortisone 5mg pm -- or prednisone equivalents). 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 See above statin discontinued; no fall/trauma reported recently but did have several falls at home and stated she had been crawling in order to call for help at times. Unsafe at home, PT/OT SNF-- plans for [facility] CK wnl on repeat (4) UTI (urinary tract infection): 2nd to enterococcus - PCN/amp resistant, with albicans Was on Rocephin previously, got 3 doses of fluconazole as above (d/c given LFTs) and changed to Vancomycin IV 07/24 and completed course while inpatient No urinary symptoms at this time reported (5) Hypoglycemia: Suspect combination of very poor oral intake, poor hepatic gluconeogenesis, poor glycogen stores, and now adrenal insufficiency to blame. Now with steroids has needed insulin coverage and monitor Last A1c 5 but possibly skewed in setting of frequent lows, anemia, CKD *Episode of hyperglycemia from candies 08/02 --> limiting use. Sent on NPH and to monitor sugars while on prednisone. F/u endocrine outpatient BSGs acceptable (6) Liver mass, right lobe: she had a bx in 2020 showing focal fibrosis? however, given the LFTs being high, I obtained repeat MRI abdomen/liver this did NOT show any remaining mass? AFP -- 1.6 (7) Abnormal LFTs: - Intrinsic liver disease vs viral vs other? HOLD STATIN -- discontinued for now, see above Liver anatomically normal on MRI. No biliary tract disease seen. repeat LFTs today still elevated but improving overall -- AST 77 prior to d/c but AST/ALP wnl hepatitis panel negative see above (8) Folate deficiency: cont folic acid 1mg po daily. (9) Copper deficiency: noted. prior h/o confirmed deficiency - had been on replacement in the past. repeated level given her ongoing macrocytosis to ensure she does not need replacement again -- low normal (10) Macrocytic anemia: folate def; copper low normal s/p 1 unit PRBCs earlier this admission. improved H/H and was 11.7 prior to discharge (Cdiff negative) (11) CAD (coronary artery disease): noted -- CAD s/p CABG x 1 (2015) and s/p SVG to RCA Graft Stent 01/06/21, Anomalous Circumflex Coronary Artery Held Lipitor due to high LFTs , HMG level pending as above cont plavix, metoprolol, ranexa, imdur at discharge No CP/SOB prior to discharge (12) High serum ferritin: noted has had w/u for this by heme/onc in the past no hemochromatosis based on records COVID negative (13) Paroxysmal atrial flutter: and paroxysmal a.fib cont BB cont xarelto, resumed following muscle biopsy (14) Generalized weakness: likely multifactorial - anemia, UTI, ?concern for malignancy, nutritional deficiencies, concern for myopathy, adrenal insufficiency as above. Improvement in tx as above PT/OT rec rehab --> arrangements made for [facility] as above (15) Multiple pulmonary nodules determined by computed tomography of lung: LANDON nodule has been very suspicious for cancer following with pulmonary last PET-CT noted may need w/u for this very soon (biopsy, etc) or at least close pulmonary follow-up (has seen [facility] for such) --> F/u Dr Otero after rehab to see about biopsy (16) Severe protein-calorie malnutrition: prior gastric bypass status prior Whipple procedure for pancreatic cyst which ultimately was benign malnutrition may be multiple etiologies as above; family reports rather rapid weight loss over past months -- 2nd to adrenal insuff as above? 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 Baseline cr 1.1-1.[address] Meehan's most recent note and had been fairly steady in the 1.3-1.4 range, however had been taking lasix 40mg daily but said recently decreased to 20mg daily as poor appetite increased swelling with steroids/edema and weakness and lasix resumed and continued at 20mg PO daily since resuming Cr improved as well as BUN and to continue 20mg daily, especially given increased edema 2nd to steroid use as above which resolved prior to discharge Cr1.14 prior to discharge (19) DVT prophylaxis: continued usual xarelto Await Bx to determine treatment plan but can be followed up outpatient, continued prednisone 20mg BID at discharge PT/OT rec SNF --> Marta Total Time Total Time Spent Total Time Spent (In Minutes): 60 Discharge Plan Discharge Items Patient Disposition: Transfer Detention Fac Reason For Visit: HYPOGLYCEMIA Discharge Diagnosis: Adrenal Insufficiency, Myopathy Goals: You have been hospitalized for an acute medical problem. During your stay at [facility], we have made an effort to correct the problem that brought you to the hospital while keeping you as comfortable as possible. Medications were used to bring your condition under control and your discharge instructions will include directions for any medications you should take after leaving the hospital. Please make sure you see your Primary Care Provider as part of your follow up plan. Activity: As commented below Activity Comment: advance with therapy as tolerated Non-emergency contact: Primary Care Provider and Specialist Call non-emergency contact if: you have any medication questions, your symptoms worsen, your pain is not controlled and you have a fever Follow-up/Referrals: Wesley Velez MD [Physician] - (myopathy) Chidi Benz PA-C [Physician Camera Systems Engineer] - 09/16/21 9:30 am (Please discuss adrenal insufficiency, myopathy) Jocelynn Mauricio MD [Primary Care Provider] - Juan Meehan DO [Physician] - 09/22/21 10:40 am (CKD) Avery Otero MD [Physician] - (pulmonary nodules) Brigido Ulrich MD [Physician] - 01/26/22 1:00 pm (Clinical information from your hospital stay has been provided to Dr. Combs, for his review.) Diet: Heart Healthy Addtl Attending Provider Instructions: You have been hospitalized for hypoglycemia and weakness. CT of the head was negative for any acute stroke. You were found to have a UTI, which was treated with antibiotics during admission and you have completed course while inpatient. Given symptoms of high blood pressure, abdominal discomfort, diarrhea, and electrolyte abnormalities you were checked and found to have adrenal insuffiency and were placed on prednisone 20mg by mouth TWICE daily. This is continued at discharge and you should have follow up after rehab with Dr Chairez from Endocrinology for titrations down of this medication to lowest effective dose. You have an appointment in August with Dr Chairez. You have been started on pepcid twice daily given on steroids and also plavix/xarelto to help with GI symptoms and prevent irritation/bleeding. Monitor for any signs/increased discomfort or bleeding and report to your medical provider JULIANNE if this occurs. You have also been started on long acting insulin 8 units daily while on steroids to help with blood sugar control. This can also be managed by endocrine and can be decreased as steroids are able to be decreased. This also is helping with underlying myopathy (muscle breakdown) and your CK has normalized with treatment and holding your statin medication for cholesterol. You may have an autoimmune process going on and this medication has been stopped and you underwent muscle biopsy which is still pending, and can have follow up outpatient with your PCP and possible referral to additional specialist. Your magnesium was low as well as calcium and these were replaced. You should continue your calcitriol for calcium but this should now be taken EVERY day. You have also been restarted on your lasix 20mg daily as taking per Dr Meehan, and you have 20meq oral potassium to take with this as well to make sure your levels do not go low. You also have been found to have multiple pulmonary nodules that will require close follow up/referral to pulmonary medicine after you complete rehab at [facility]. Your hemoglobin was also low, and given your prior copper/folic acid deficiency in the past, these levels were checked and your folic acid remained low and you should continue daily supplementation. You should follow up with your PCP, Nephrology in the next week to monitor your progress. You should have follow up with Endocrine, Neurology. You also should follow up with Dr Combs from Rheumatology. Prior appointment arranged in December and will review your records from this hospital stay. Please return to the emergency department with any fever/chills, chest pain, shortness of breath, worsening abdominal pain/diarrhea, inability to keep up with oral agents, or for any other symptoms concerning for you. Take care! Pending Studies at Discharge: Yes Studies:: Muscle Biopsy, HMG-CoA antibody testing Stand-Alone Forms: My [facility] Skilled Items Patient informed of condition?: Yes DNR: Yes Discharge Level of Care: Skilled Communicable Disease: No Discharge Prognosis: Improving Lines: None Urinary Catheter: No Medications and DC Order Prescriptions: New famotidine [Acid Title Closer (famotidine)] 10 mg Tablet 10 mg PO BID Qty: 60 RF: 0 Novolin N NPH U-100 Insulin 100 unit/mL Suspension 8 unit subcut QAM Qty: 10 RF: 0 prednisone 20 mg Tablet 20 mg PO BID17 Qty: 60 RF: 3 calcitriol 0.25 mcg Capsule 0.25 mcg PO Q24H Qty: 30 RF: 0 folic acid 1 mg Tablet 1 mg PO QAM Qty: 30 RF: 0 Continued isosorbide mononitrate 120 mg tablet extended release 24 hr 240 mg PO QAM RF: 0 gabapentin 300 mg capsule 900 mg PO HS 90 Days Qty: 270 RF: 1 nitroglycerin 0.4 mg tablet, sublingual 0.4 mg sublingual UD PRN (Reason: Chest Pain) Qty: 25 RF: 5 (DME) Oxygen Home Liters Per Minute See Rx Instructions .Route Qty: 1 RF: 0 glucose [Dex4 Glucose] 4 gram tablet,chewable 4 g PO Q15M PRN (Reason: hypoglycemia) Qty: 10 RF: 0 metoprolol succinate 200 mg tablet extended release 24 hr See Rx Instructions .ROUTE .COMPLEX Qty: 135 RF: 3 PreserVision AREDS [id number] Tablet 1 tab PO BIDM RF: 0 Ubrelvy 100 mg tablet 100 mg PO DAILY PRN (Reason: migraine headache) RF: 0 clopidogrel 75 mg Tablet 75 mg PO QAM Qty: 30 RF: 6 cyanocobalamin (vitamin B-12) 1,000 mcg/mL Solution 0 mcg IM MONTHLY RF: 0 Eylea 2 mg/0.05 mL Syringe 1 mg INTRAVITREAL MONTHLY RF: 0 Xarelto 15 mg tablet 15 mg PO .AFTER DINNER RF: 0 hydrocodone-acetaminophen 5-325 mg tablet 1 tab PO Q6H PRN (Reason: Pain) RF: 0 digoxin 125 mcg (0.125 mg) tablet 125 mcg PO Q2D RF: 0 epinephrine 0.3 mg/0.3 mL auto-injector 0.3 mg subcut UD PRN (Reason: Anaphylaxis) RF: 0 prednisolone acetate 1 % drops,suspension 1 drp OPR QAM RF: 0 Changed furosemide [Lasix] 40 mg tablet 20 mg PO QAM Qty: 90 RF: 3 Discontinued atorvastatin [Lipitor] 40 mg tablet 40 mg PO HS Qty: 90 RF: 3 calcitriol 0.25 mcg capsule 0.25 mcg PO 3XWK Qty: 36 RF: 3 ranolazine [Ranexa] 500 mg tablet extended release 12 hr 500 mg PO BID Qty: 180 RF: 3 potassium chloride 8 mEq tablet extended release 16 meq PO QAM RF: 0 No Action levetiracetam [Keppra] 250 mg tablet 250 mg PO BID 90 Days Qty: 180 RF: 0 Discharge Orders: Discharge Order (Routine); Ordered 08/05/21 Ordered By: Miranda Lindsay/Other Patient Handouts: ED Hypoglycemia, Nondiabetic Admission Data Admit Date/Time: 07/20/21 19:45 Attending Provider: Marcus Mendoza Admit Provider: Pablo Salinas Primary Care Provider: Jocelynn Mauricio Other Providers: Cyndie Lozano Mckenzie ; Norma Linton ; Wesley Velez ; Cam Dickens ; Avery Thakur Other Interventions: Discharge Summary Assessment (RN) Last Done: 08/05/21 10:04 Supervising Physician Co-Signing Physician Notes Attending Attestation/Discharge Note: Pt was discharged prior to my bedside assessment. I had visited her room 3 separate times on the morning of discharge and each time she was unavailable for examination (on the commode, getting dressed, etc). On my 3rd visit she had been d/c to [facility]. Regardless, I do agree with the solares components of Ms Miranda Quevedo's documentation. Complicated 80yo female - previously known to me as I cared for her early in her hospitalization - with new diagnoses of adrenal insufficiency (possibly central as ACTH returned undectable) and myopathy. Latter was profound - patient was having trouble walking from room to room at home. SEVERE proximal muscle weakness of the hip region and to a lesser degree the shoulder region. Begun on steroids for both her adrenal insufficiency and the myopathy. Seen in consult by neurology, orthopedics, PT, OT, and general surgery during the stay. Underwent muscle bx for the myopathy - results pending. HMG-CoA antibody returned negative making statin-induced myopathy unlikely. Thus, at time of discharge, cause of myopathy was uncertain. Course also complicated by UTI, anemia requiring PRBCs, hypoglycemia, nutritional deficiencies, etc. She will need close f/u with endocrinology, neurology/rheum (latter depending on her muscle bx results), pulmonary (nodule suspicious for cancer), etc. She transferred to [facility] for rehab post-d/c. Marcus Mendoza MD Coding Level of Care Code D/C DAY MANAGEMENT >30 MINS Diagnoses Myopathy G72.9 Adrenal insufficiency E27.40 Elevated creatine kinase level R74.8 UTI (urinary tract infection) N39.0 Hypoglycemia E16.2 Liver mass, right lobe R16.0 Abnormal LFTs R79.89 Folate deficiency E53.8 Copper deficiency E61.0 Macrocytic anemia D53.9 CAD (coronary artery disease) I25.10 Associated angina: without angina Coronary Disease-Associated Artery/Lesion type: [place] artery [place] vs. 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
== END 2021-08-05 10:58 | DRG 987 ==
LOC: ED 14:47 → 3N 19:45 → SUATTDRO 19:45 → 3N 21:57
DX: E83.51 Hypocalcemia; G72.9 Myopathy, unspecified; C34.12 Malignant neoplasm of upper lobe, left bronchus or lung; Z98.0 Intestinal bypass and anastomosis status; E11.649 Type 2 diabetes mellitus with hypoglycemia without coma; I25.2 Old myocardial infarction; M48.02 Spinal stenosis, cervical region; E11.42 Type 2 diabetes mellitus with diabetic polyneuropathy; E87.6 Hypokalemia; Z98.84 Bariatric surgery status; E43 Unspecified severe protein-calorie malnutrition; J96.11 Chronic respiratory failure with hypoxia; Z91.041 Radiographic dye allergy status; E27.40 Unspecified adrenocortical insufficiency; R74.01 Elevation of levels of liver transaminase levels; Z79.02 Long term (current) use of antithrombotics/antiplatelets; I48.0 Paroxysmal atrial fibrillation; I50.32 Chronic diastolic (congestive) heart failure; E83.42 Hypomagnesemia; I13.0 Hypertensive heart and chronic kidney disease with heart failure and stage 1 through stage 4 chronic kidney disease, or unspecified chronic kidney disease; N39.0 Urinary tract infection, site not specified; Z86.73 Personal history of transient ischemic attack (TIA), and cerebral infarction without residual deficits; N18.4 Chronic kidney disease, stage 4 (severe); B95.2 Enterococcus as the cause of diseases classified elsewhere; C22.1 Intrahepatic bile duct carcinoma; I48.92 Unspecified atrial flutter; L89.159 Pressure ulcer of sacral region, unspecified stage; Z95.5 Presence of coronary angioplasty implant and graft; D53.9 Nutritional anemia, unspecified; G40.802 Other epilepsy, not intractable, without status epilepticus; I25.10 Atherosclerotic heart disease of native coronary artery without angina pectoris

== ENCOUNTER 2021-09-09 09:57 | Inpatient (IN) ==
[2021-09-09] MEDS ORDERED: DEXTROSE 50% 50 ML SYRINGE IV ONE ×3 (10:08→11:02)
--- NOTE | 2021-09-09 10:14 | Emergency Department Note ---
Impression & Plan Altered mental status, Hypoglycemia, Pneumonia, Acute UTI, Hypokalemia, Leukocytosis ED Provider Note NAME: ISIDRO GRAY AGE: 80 SEX: F : 1940 ARRIVES VIA: Ambulance INFORMANT: [ems, nursing] ED PROVIDER(S): [Cipriano Greenberg MD] CHIEF COMPLAINT: Lethargic HISTORY OF PRESENT ILLNESS: The patient is an 80-year-old female who is a DNR. She has a diagnosis of adrenal insufficiency. She is diabetic. Today, she seemed more tired, sleepy, lethargic. Her blood sugar was 48. They were unable to obtain an IV site and gave her 1 mg of IM glucagon. The sugar only increased to 58. She was sent here for evaluation. By report, at her care center, her blood pressure was in the 70s systolic. EMS did not notice a low blood pressure. Patient does have some baseline confusion, there has been no reported fever or respiratory complaints. Given her mental state, no further history obtainable. REVIEW OF SYSTEMS: Unobtainable given her mental state. PMHx/PSHx: See Below SOCIAL HISTORY: See Below. PHYSICAL EXAM: GENERAL: Patient is in no acute distress. HEENT: No acute trauma, normocephalic atraumatic, mucous membranes moist, no nasal congestion, no scleral icterus. Pupils equal and reactive to light. NECK: No stridor, no adenopathy, no meningismus, trachea is midline. LUNGS: Clear to auscultation bilaterally when listening anterior, no wheeze, no rhonchi, breath sounds equal. HEART: Without murmurs gallops or rubs, somewhat irregular rhythm. ABDOMEN: Soft, nontender, bowel sounds positive, no hernias, no peritonitis. EXTREMITIES: No cyanosis. She is edematous in both lower extremities and her left upper extremity. NEUROLOGIC: Awake but sleepy. Moves all extremities. Confused. SKIN: No rash, no jaundice, no diaphoresis. DIFFERENTIAL DIAGNOSIS: Infection, dehydration, UTI, metabolic abnormality, hypo/hyperglycemia, electrolyte disturbance, anemia, hypoxia, cardiac sources, intracerebral event, toxicologic issues, stroke, TIA, as well as other pathologies. EMERGENCY DEPARTMENT COURSE/PROCEDURES: ECG: Indication was weakness and confusion. The ECG shows atrial flutter with a PVC. There is a right bundle branch block. There is no ST elevation. There is T wave inversion in the inferior leads. The QTC is 467. Compared to an ECG from 20 July 2021, the inverted T wave findings inferiorly are new. A flutter has replaced A. fib. Continuous Cardiac Monitoring: An order was placed for continuous cardiac monitoring. The monitor shows a rate of 84 with atrial flutter with PVCs. Critical Care Note: I have personally spent 48 minutes of critical care time in the direct management of this patient. This includes bedside care, interpretation of diagnostic studies, and testing, discussion with consultants, patient, and family members, and other required patient management activities. This 48 minutes is in excess of all separately billable procedures. MEDICAL DECISION MAKING: There is a significant leukocytosis at 24,000, this certainly could be consistent with infection or possibly, her hypoglycemia. Hemoglobin was low at 9, this is her baseline. There is a normal platelet count. No worrisome coagulopathy. Renal panel testing shows a lower potassium and a lower CO2. Magnesium was low at 1.6. No concerning liver enzyme elevation. The patient appeared to be in a euthyroid state. Urinalysis does suggest infection. Chest x-ray shows a left-sided pneumonia. COVID testing returned negative. Brain CT shows no acute bleed or mass-effect. Patient's blood sugar upon arrival was low. She required 3/50 cc boluses of D50 to get the sugar into an adequate r radha. She was placed on a D10 drip at 100 cc an hour. Eventually, the drip was decreased to 50 cc and then discontinued once her sugar seemed to stabilize. The patient was given a 500 cc saline bolus. She was given IV potassium. She was given IV Zosyn and IV doxycycline. She received IV magnesium. The patient has pneumonia, she has a UTI, she presented with a change in mental status and a very low blood sugar. The patient is currently improved compared to when she arrived. I spoke with the patient's son about our findings. The patient does require a hospital stay for hydration, glucose monitoring and IV antibiotic therapy. I spoke with case management, the on-call hospitalist was consulted. Past Med/Surg History Medical History Benign essential tremor CAD (coronary artery disease) CABG x 1 vessel 2016 Cerebellar infarct Follows with neuro= "Prior cerebellar stroke without residual deficits" - continue ASA and statin Chronic diastolic congestive heart failure Chronic hypoxemic respiratory failure Chronic low back pain Copper deficiency Corneal dystrophy CVA (cerebral vascular accident) NO RESIDUAL AT AGE 50 Diabetes Endothelial corneal dystrophy Family history of reaction to anesthesia SISTER - HIVTINY, N/V GERD (gastroesophageal reflux disease) History of cardioversion 1978 & AUGUST 2020 History of [place] (myocardial infarction) 1978 History of vertigo Hyperlipemia Hypertension Hypokalemia Intrahepatic cholangiocarcinoma Liver cancer DX AUGUST 2020 - [facility] Liver mass DX JULY 2020 Macular degeneration Mitral regurgitation Mild to moderate per 2019 ECHO Multiple pulmonary nodules determined by computed tomography of lung Osteoporosis Osteoporosis with fracture fx ribs from falling, NO CURRENT FRACTURES Pancreatic tumor had surgery removal of head Paroxysmal atrial fibrillation and flutter--On Xarelto , DX 2018 - HX CARDIOVERSION AUGUST 2020 Peripheral neuropathy Pulmonary hypertension PASP 30-40mmHg Pulmonary nodule monitored yearly Sleep apnea Spondylosis Temporal lobe epilepsy Follows with neuro Started on Keppra in Spring 2019 with no further events since that time Continue Keppra per 08/10/20 neuro note Weakness Surgical History Gastric bypass status for obesity H/O abdominoplasty WITH NECK REPAIRED WELL H/O cataract extraction right and left H/O ovarian cystectomy H/O thumb surgery left and right H/O Whipple procedure History of appendectomy History of breast biopsy several both sides History of corneal transplant right eye History of ear surgery 1967, LEFT History of liver biopsy History of resection of pancreas head of pancreas removed 2009 History of total right hip replacement History of transmyocardial revascularization Hx of cardiac cath 2013, AUGUST 2015, october 2020, november 2020 Hx of cholecystectomy S/P CABG (coronary artery bypass graft) 2016 S/P cholecystectomy S/P tonsillectomy and adenoidectomy S/P trigger finger release left thumb x3, one surgery on right Status post right knee replacement Family History Sister Breast cancer 2 sisters Diabetes 2 sisters Heart disease Cancer 2 sisters Father , age 64 of an [place] Myocardial infarction Heart disease Hypertension Brother Myocardial infarction Diabetes Heart disease 2 brothers Hypertension Mother , age 92 of a stroke Non-Hodgkin lymphoma Stroke Cancer Grandfather Diabetes Heart disease Denies family history of Ovarian cancer Prostate cancer Colorectal cancer Social History Smoking Status: Unknown if ever smoked Age Started Using Tobacco: 16; Age Quit Using Tobacco: 50; packs per day: 1.5; Cigarettes Per Day: 30; Second Hand Exposure: No; Hx Alcohol Use: No Hx Substance Use: No Preferred Language: Danish Communication Ability: Effective Visual Impairment: Limited Hearing Ability: Normal Clinic Office Manager Required: No Beliefs That Will Affect Care: None marital status: / Current Living Situation: Alone Current Living Situation Comment: 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 current occupational status: retired Feels Safe at Home: Yes Childhood Exposure to Second-Hand Smoke: No caffeine: No during the past year weight has: decreased > 10 lbs Dental Care, Regularly: Yes Physical Activity Frequency: Does not Exercise Seatbelt Use: always Sunscreen Use: Yes Do you think of yourself as: straight/heterosexual Gender Identity: Female Assistive Devices: Glasses Allergies Allergies Allergy/AdvReac Type Severity Reaction Status Date / Time banana Allergy Unknown HIVES/ITCHI Verified 09/09/21 15:34 NG Iodinated Contrast Media Allergy Unknown "CONTRAST"- Verified 09/09/21 15:34 HIVES/ITCHI NG povidone-iodine Allergy Unknown "drops for Verified 09/09/21 15:34 [From Betadine] eye before injection" - fox/vision trouble soap [From Betadine] Allergy Unknown "drops for Verified 09/09/21 15:34 eye before injection" - fox/vision trouble Home Meds Home Medications Medication Instructions Recorded Confirmed vitamins A,C,A-zoqq-vcncfo 7,160 1 tab PO BIDM 07/03/19 09/09/21 unit-113 mg-100 unit tablet (PreserVision AREDS) prednisolone acetate 1 % eye 1 drp OPR QAM ml 03/24/21 09/09/21 drops,suspension cyanocobalamin (vitamin B-12) 1,000 mcg IM MONTHLY 05/15/21 09/09/21 1,000 mcg/mL injection solution isosorbide mononitrate 120 mg 240 mg PO QAM tab 06/18/21 09/09/21 tablet,extended release 24 hr digoxin 125 mcg (0.125 mg) tablet 125 mcg PO Q2D 07/06/21 09/09/21 epinephrine 0.3 mg/0.3 mL 0.3 mg SUBCUT UD PRN 07/06/21 09/09/21 injection, auto-injector rivaroxaban 15 mg tablet (Xarelto) 15 mg PO .AFTER DINNER 07/06/21 09/09/21 levetiracetam 500 mg tablet 500 mg PO AMHS 08/27/21 09/09/21 ubrogepant 100 mg tablet (Ubrelvy) 100 mg PO .EVERY 24 HOURS PRN tab 08/27/21 09/09/21 acetaminophen 325 mg tablet 650 mg PO Q4 PRN MDD 3g 09/09/21 09/09/21 benzocaine 20 %-menthol 0.5 % 1 spray TOPICAL TID 09/09/21 09/09/21 topical aerosol (Dermoplast (with menthol)) calcitriol 0.25 mcg capsule 0.25 mcg PO Q OTHER DAY 09/09/21 09/09/21 dextrose 15 gram/59 mL oral liquid 4 g PO .EVERY 15 MINUTES PRN 09/09/21 09/09/21 (Dex4 Glucose) docusate sodium 100 mg capsule 100 mg PO .EVERY 24 HOURS PRN 09/09/21 09/09/21 (Colace) furosemide 40 mg tablet (Lasix) 40 mg PO BID 09/09/21 09/09/21 insulin aspart U-100 100 unit/mL 6 unit SUBCUT AMHS 09/09/21 09/09/21 (3 mL) subcutaneous pen loperamide 2 mg tablet (Imodium 2 mg PO Q4H PRN 09/09/21 09/09/21 A-D) loperamide 2 mg tablet (Imodium 2 mg PO QAM 09/09/21 09/09/21 A-D) polyethylene glycol 3350 17 17 g PO .EVERY 24 HOURS PRN 09/09/21 09/09/21 gram/dose oral powder (Miralax) potassium chloride 20 mEq 20 meq PO DAILY 09/09/21 09/09/21 tablet,extended release(part/cryst) prednisone 20 mg tablet 20 mg PO AMHS 09/09/21 09/09/21 Previous Rx's Medication Instructions Recorded gabapentin 300 mg capsule 900 mg PO HS 90 Days #270 cap 08/26/20 nitroglycerin 0.4 mg sublingual 0.4 mg SUBLINGUAL UD PRN #25 tab 01/04/21 tablet clopidogrel 75 mg tablet 75 mg PO QAM #30 tab 01/09/21 metoprolol succinate 200 mg See Rx Instructions .ROUTE 07/15/21 tablet,extended release 24 hr .COMPLEX #135 tab famotidine 10 mg tablet (Acid 10 mg PO BID #60 tab 08/05/21 [employer] (famotidine)) folic acid 1 mg tablet 1 mg PO QAM #30 tab 08/05/21 Results & Data (ED) Vital Signs Vital Signs - 24 hr 09/09/21 09:50 09/09/21 11:17 09/09/21 11:32 Temperature 36.9 C Temperature Source Axillary Pulse Rate 83 Pulse Rate [Finger] 92 H 84 Pulse Rhythm Irregular Pulse Rhythm [Finger] Irregular Irregular Pulse Strength Normal Pulse Strength [Finger] Normal Normal Respiratory Rate 20 20 16 Respiratory Effort / Characteristics Non-Labored Non-Labored Non-Labored Respiratory Depth Normal Normal Normal Respiratory Pattern Regular Blood Pressure 133/55 L Blood Pressure [Right Arm] 136/97 129/60 Blood Pressure Mean 81 Blood Pressure Mean [Right Arm] 110 83 Blood Pressure Position Lying Blood Pressure Position [Right Arm] Lying Lying Pulse Oximetry 95 96 97 Oxygen Delivery Method Room Air Room Air Room Air Sepsis Recent Fever Within 48 Hours No Sepsis New/Unexplained Change in Mental Status No Sepsis Action Taken by Nursing No Action Required 09/09/21 13:00 09/09/21 15:00 Temperature Temperature Source Pulse Rate Pulse Rate [Finger] 77 67 Pulse Rhythm Pulse Rhythm [Finger] Irregular Irregular Pulse Strength Pulse Strength [Finger] Normal Normal Respiratory Rate 20 18 Respiratory Effort / Characteristics Non-Labored Non-Labored Respiratory Depth Normal Normal Respiratory Pattern Blood Pressure Blood Pressure [Right Arm] 123/62 106/54 L Blood Pressure Mean Blood Pressure Mean [Right Arm] 82 71 Blood Pressure Position Blood Pressure Position [Right Arm] Lying Lying Pulse Oximetry 93 96 Oxygen Delivery Method Room Air Room Air Sepsis Recent Fever Within 48 Hours Sepsis New/Unexplained Change in Mental Status Sepsis Action Taken by Usp Medications Current Medication List: was personally reviewed by me Laboratory Data Attestation: I reviewed the patient's lab results. Result diagrams: 09/09/21 11:33 09/09/21 11:33 Lab Results 09/09/21 09/09/2122 Range/Units 10:33 10:54 11:02 WBC (4.8-10.8) K/uL RBC (4.2-5.4) M/uL Hgb (12.0-16.0) g/dL Hct (37-47) % MCV (80-100) fL MCH (25-34) pg MCHC (32-36) g/dL RDW Std Deviation (36.4-46.3) fL RDW Coeff of Argenis (11.5-14.5) % Plt Count (130-400) K/uL MPV (7.4-10.4) fL Immature Gran % (Auto) % Neut % (Auto) % Lymph % (Auto) % Green % (Auto) % Eos % (Auto) % Baso % (Auto) % Neut # (Auto) (1.4-6.5) K/uL Lymph # (Auto) (1.2-3.4) K/uL Green # (Auto) (0.11-0.59) K/uL Eos # (Auto) (0-0.5) K/uL Baso # (Auto) (0-0.2) K/uL Immature Gran # (Auto) (0.00-0.02) K/uL ESR (0-30) mm/hr PT (9.0-12.0) Seconds INR (0.9-1.1) APTT (21.0-31.0) Seconds PTT Ratio Sodium (136-145) mmol/L Potassium (3.5-5.1) mmol/L Chloride (98-107) mmol/L Carbon Dioxide (21-32) mmol/L Anion Gap (3-11) BUN (6-23) mg/dl Creatinine (0.6-1.2) mg/dl Est Cr Clr Drug Dosing ml/min Est GFR ( Amer) ml/min Est GFR (Non-Af Amer) ml/min BUN/Creatinine Ratio (10-20) Glucose (70-99(Fasting)) mg/dl POC Glucose 33 L* 42 L* (70-99) mg/dl Calcium (8.5-10.1) mg/dl Magnesium (1.7-2.4) mg/dl Total Bilirubin (0.2-1.0) mg/dl AST (13-39) U/L ALT (7-52) U/L Alkaline Phosphatase (34-104) U/L Total Creatine Kinase (26-192) U/L C-Reactive Protein (0-0.5) mg/dl Total Protein (6.0-8.3) gm/dl Albumin (3.4-5.0) gm/dl Globulin (2.5-4.0) gm/dl Albumin/Globulin Ratio (0.9-2) TSH (0.300-4.500) uIu/ml Random Cortisol mcg/dl Urine Color Yellow Urine Appearance Clear (Clear) Urine pH 5.5 (4.5-7.5) Ur Specific [place] 1.020 (1.000-1.030) Urine Protein 1+ H (Negative) Urine Glucose (UA) 1+ H (Negative) Urine Ketones Negative (Negative) Urine Blood Trace-lysed H (Negative) Urine Nitrite Positive A (Negative) Urine Bilirubin Negative (Negative) Urine Urobilinogen Negative (Negative) Ur Leukocyte Esterase 2+ H (Negative) Urine RBC 5-10 H (0-4) /hpf Urine WBC >30 H (0-5) /hpf Ur Epithelial Cells 0-5 (0-5) /lpf Urine Bacteria 2+ H (Negative) Digoxin (0.8-2.0) ng/ml 09/09/21 09/09/21 09/09/21 Range/Units 11:21 11:22 11:24 WBC (4.8-10.8) K/uL RBC (4.2-5.4) M/uL Hgb (12.0-16.0) g/dL Hct (37-47) % MCV (80-100) fL MCH (25-34) pg MCHC (32-36) g/dL RDW Std Deviation (36.4-46.3) fL RDW Coeff of Argenis (11.5-14.5) % Plt Count (130-400) K/uL MPV (7.4-10.4) fL Immature Gran % (Auto) % Neut % (Auto) % Lymph % (Auto) % Green % (Auto) % Eos % (Auto) % Baso % (Auto) % Neut # (Auto) (1.4-6.5) K/uL Lymph # (Auto) (1.2-3.4) K/uL Green # (Auto) (0.11-0.59) K/uL Eos # (Auto) (0-0.5) K/uL Baso # (Auto) (0-0.2) K/uL Immature Gran # (Auto) (0.00-0.02) K/uL ESR (0-30) mm/hr PT (9.0-12.0) Seconds INR (0.9-1.1) APTT (21.0-31.0) Seconds PTT Ratio Sodium (136-145) mmol/L Potassium (3.5-5.1) mmol/L Chloride (98-107) mmol/L Carbon Dioxide (21-32) mmol/L Anion Gap (3-11) BUN (6-23) mg/dl Creatinine (0.6-1.2) mg/dl Est Cr Clr Drug Dosing ml/min Est GFR ( Amer) ml/min Est GFR (Non-Af Amer) ml/min BUN/Creatinine Ratio (10-20) Glucose (70-99(Fasting)) mg/dl POC Glucose 307 H* 181 H 101 H (70-99) mg/dl Calcium (8.5-10.1) mg/dl Magnesium (1.7-2.4) mg/dl Total Bilirubin (0.2-1.0) mg/dl AST (13-39) U/L ALT (7-52) U/L Alkaline Phosphatase (34-104) U/L Total Creatine Kinase (26-192) U/L C-Reactive Protein (0-0.5) mg/dl Total Protein (6.0-8.3) gm/dl Albumin (3.4-5.0) gm/dl Globulin (2.5-4.0) gm/dl Albumin/Globulin Ratio (0.9-2) TSH (0.300-4.500) uIu/ml Random Cortisol mcg/dl Urine Color Urine Appearance (Clear) Urine pH (4.5-7.5) Ur Specific [place] (1.000-1.030) Urine Protein (Negative) Urine Glucose (UA) (Negative) Urine Ketones (Negative) Urine Blood (Negative) Urine Nitrite (Negative) Urine Bilirubin (Negative) Urine Urobilinogen (Negative) Ur Leukocyte Esterase (Negative) Urine RBC (0-4) /hpf Urine WBC (0-5) /hpf Ur Epithelial Cells (0-5) /lpf Urine Bacteria (Negative) Digoxin (0.8-2.0) ng/ml 09/09/21 09/09/21 09/09/21 Range/Units 11:27 11:33 11:33 WBC (4.8-10.8) K/uL RBC (4.2-5.4) M/uL Hgb (12.0-16.0) g/dL Hct (37-47) % MCV (80-100) fL MCH (25-34) pg MCHC (32-36) g/dL RDW Std Deviation (36.4-46.3) fL RDW Coeff of Argenis (11.5-14.5) % Plt Count (130-400) K/uL MPV (7.4-10.4) fL Immature Gran % (Auto) % Neut % (Auto) % Lymph % (Auto) % Green % (Auto) % Eos % (Auto) % Baso % (Auto) % Neut # (Auto) (1.4-6.5) K/uL Lymph # (Auto) (1.2-3.4) K/uL Green # (Auto) (0.11-0.59) K/uL Eos # (Auto) (0-0.5) K/uL Baso # (Auto) (0-0.2) K/uL Immature Gran # (Auto) (0.00-0.02) K/uL ESR (0-30) mm/hr PT (9.0-12.0) Seconds INR (0.9-1.1) APTT (21.0-31.0) Seconds PTT Ratio Sodium 138 (136-145) mmol/L Potassium 2.8 L (3.5-5.1) mmol/L Chloride 108 H (98-107) mmol/L Carbon Dioxide 20 L (21-32) mmol/L Anion Gap 10 (3-11) BUN 55 H (6-23) mg/dl Creatinine 1.16 (0.6-1.2) mg/dl Est Cr Clr Drug Dosing 28.7 ml/min Est GFR ( Amer) 51.1 ml/min Est GFR (Non-Af Amer) 44.1 ml/min BUN/Creatinine Ratio 47.4 H (10-20) Glucose 340 H* (70-99(Fasting)) mg/dl POC Glucose 136 H (70-99) mg/dl Calcium 6.9 L (8.5-10.1) mg/dl Magnesium 1.6 L (1.7-2.4) mg/dl Total Bilirubin 0.5 (0.2-1.0) mg/dl AST 34 (13-39) U/L ALT 34 (7-52) U/L Alkaline Phosphatase 99 (34-104) U/L Total Creatine Kinase (26-192) U/L C-Reactive Protein (0-0.5) mg/dl Total Protein 4.1 L (6.0-8.3) gm/dl Albumin 1.9 L (3.4-5.0) gm/dl Globulin 2.2 L (2.5-4.0) gm/dl Albumin/Globulin Ratio 0.9 (0.9-2) TSH (0.300-4.500) uIu/ml Random Cortisol mcg/dl Urine Color Urine Appearance (Clear) Urine pH (4.5-7.5) Ur Specific [place] (1.000-1.030) Urine Protein (Negative) Urine Glucose (UA) (Negative) Urine Ketones (Negative) Urine Blood (Negative) Urine Nitrite (Negative) Urine Bilirubin (Negative) Urine Urobilinogen (Negative) Ur Leukocyte Esterase (Negative) Urine RBC (0-4) /hpf Urine WBC (0-5) /hpf Ur Epithelial Cells (0-5) /lpf Urine Bacteria (Negative) Digoxin 0.5 L (0.8-2.0) ng/ml 09/09/21 09/09/21 09/09/21 Range/Units 11:33 11:33 11:33 WBC 24.85 H (4.8-10.8) K/uL RBC 2.81 L (4.2-5.4) M/uL Hgb 9.1 L (12.0-16.0) g/dL Hct 27.0 L (37-47) % MCV 96.1 (80-100) fL MCH 32.4 (25-34) pg MCHC 33.7 (32-36) g/dL RDW Std Deviation 56.2 H (36.4-46.3) fL RDW Coeff of Argenis 16.0 H (11.5-14.5) % Plt Count 226 (130-400) K/uL MPV 10.4 (7.4-10.4) fL Immature Gran % (Auto) 8.5 % Neut % (Auto) 83.0 % Lymph % (Auto) 2.9 % Green % (Auto) 5.5 % Eos % (Auto) 0.0 % Baso % (Auto) 0.1 % Neut # (Auto) 20.64 H (1.4-6.5) K/uL Lymph # (Auto) 0.73 L (1.2-3.4) K/uL Green # (Auto) 1.36 H (0.11-0.59) K/uL Eos # (Auto) 0.00 (0-0.5) K/uL Baso # (Auto) 0.02 (0-0.2) K/uL Immature Gran # (Auto) 2.10 H (0.00-0.02) K/uL ESR 25 (0-30) mm/hr PT (9.0-12.0) Seconds INR (0.9-1.1) APTT (21.0-31.0) Seconds PTT Ratio Sodium (136-145) mmol/L Potassium (3.5-5.1) mmol/L Chloride (98-107) mmol/L Carbon Dioxide (21-32) mmol/L Anion Gap (3-11) BUN (6-23) mg/dl Creatinine (0.6-1.2) mg/dl Est Cr Clr Drug Dosing ml/min Est GFR ( Amer) ml/min Est GFR (Non-Af Amer) ml/min BUN/Creatinine Ratio (10-20) Glucose (70-99(Fasting)) mg/dl POC Glucose (70-99) mg/dl Calcium (8.5-10.1) mg/dl Magnesium (1.7-2.4) mg/dl Total Bilirubin (0.2-1.0) mg/dl AST (13-39) U/L ALT (7-52) U/L Alkaline Phosphatase (34-104) U/L Total Creatine Kinase (26-192) U/L C-Reactive Protein (0-0.5) mg/dl Total Protein (6.0-8.3) gm/dl Albumin (3.4-5.0) gm/dl Globulin (2.5-4.0) gm/dl Albumin/Globulin Ratio (0.9-2) TSH 0.599 (0.300-4.500) uIu/ml Random Cortisol mcg/dl Urine Color Urine Appearance (Clear) Urine pH (4.5-7.5) Ur Specific [place] (1.000-1.030) Urine Protein (Negative) Urine Glucose (UA) (Negative) Urine Ketones (Negative) Urine Blood (Negative) Urine Nitrite (Negative) Urine Bilirubin (Negative) Urine Urobilinogen (Negative) Ur Leukocyte Esterase (Negative) Urine RBC (0-4) /hpf Urine WBC (0-5) /hpf Ur Epithelial Cells (0-5) /lpf Urine Bacteria (Negative) Digoxin (0.8-2.0) ng/ml 09/09/21 09/09/21 09/09/21 Range/Units 12:10 12:46 13:40 WBC (4.8-10.8) K/uL RBC (4.2-5.4) M/uL Hgb (12.0-16.0) g/dL Hct (37-47) % MCV (80-100) fL MCH (25-34) pg MCHC (32-36) g/dL RDW Std Deviation (36.4-46.3) fL RDW Coeff of Argenis (11.5-14.5) % Plt Count (130-400) K/uL MPV (7.4-10.4) fL Immature Gran % (Auto) % Neut % (Auto) % Lymph % (Auto) % Green % (Auto) % Eos % (Auto) % Baso % (Auto) % Neut # (Auto) (1.4-6.5) K/uL Lymph # (Auto) (1.2-3.4) K/uL Green # (Auto) (0.11-0.59) K/uL Eos # (Auto) (0-0.5) K/uL Baso # (Auto) (0-0.2) K/uL Immature Gran # (Auto) (0.00-0.02) K/uL ESR (0-30) mm/hr PT (9.0-12.0) Seconds INR (0.9-1.1) APTT (21.0-31.0) Seconds PTT Ratio Sodium (136-145) mmol/L Potassium (3.5-5.1) mmol/L Chloride (98-107) mmol/L Carbon Dioxide (21-32) mmol/L Anion Gap (3-11) BUN (6-23) mg/dl Creatinine (0.6-1.2) mg/dl Est Cr Clr Drug Dosing ml/min Est GFR ( Amer) ml/min Est GFR (Non-Af Amer) ml/min BUN/Creatinine Ratio (10-20) Glucose (70-99(Fasting)) mg/dl POC Glucose 261 H 293 H 232 H (70-99) mg/dl Calcium (8.5-10.1) mg/dl Magnesium (1.7-2.4) mg/dl Total Bilirubin (0.2-1.0) mg/dl AST (13-39) U/L ALT (7-52) U/L Alkaline Phosphatase (34-104) U/L Total Creatine Kinase (26-192) U/L C-Reactive Protein (0-0.5) mg/dl Total Protein (6.0-8.3) gm/dl Albumin (3.4-5.0) gm/dl Globulin (2.5-4.0) gm/dl Albumin/Globulin Ratio (0.9-2) TSH (0.300-4.500) uIu/ml Random Cortisol mcg/dl Urine Color Urine Appearance (Clear) Urine pH (4.5-7.5) Ur Specific [place] (1.000-1.030) Urine Protein (Negative) Urine Glucose (UA) (Negative) Urine Ketones (Negative) Urine Blood (Negative) Urine Nitrite (Negative) Urine Bilirubin (Negative) Urine Urobilinogen (Negative) Ur Leukocyte Esterase (Negative) Urine RBC (0-4) /hpf Urine WBC (0-5) /hpf Ur Epithelial Cells (0-5) /lpf Urine Bacteria (Negative) Digoxin (0.8-2.0) ng/ml 09/09/21 09/09/21 09/09/21 Range/Units 14:37 14:53 14:53 WBC (4.8-10.8) K/uL RBC (4.2-5.4) M/uL Hgb (12.0-16.0) g/dL Hct (37-47) % MCV (80-100) fL MCH (25-34) pg MCHC (32-36) g/dL RDW Std Deviation (36.4-46.3) fL RDW Coeff of Argenis (11.5-14.5) % Plt Count (130-400) K/uL MPV (7.4-10.4) fL Immature Gran % (Auto) % Neut % (Auto) % Lymph % (Auto) % Green % (Auto) % Eos % (Auto) % Baso % (Auto) % Neut # (Auto) (1.4-6.5) K/uL Lymph # (Auto) (1.2-3.4) K/uL Green # (Auto) (0.11-0.59) K/uL Eos # (Auto) (0-0.5) K/uL Baso # (Auto) (0-0.2) K/uL Immature Gran # (Auto) (0.00-0.02) K/uL ESR (0-30) mm/hr PT (9.0-12.0) Seconds INR (0.9-1.1) APTT (21.0-31.0) Seconds PTT Ratio Sodium (136-145) mmol/L Potassium (3.5-5.1) mmol/L Chloride (98-107) mmol/L Carbon Dioxide (21-32) mmol/L Anion Gap (3-11) BUN (6-23) mg/dl Creatinine (0.6-1.2) mg/dl Est Cr Clr Drug Dosing ml/min Est GFR ( Amer) ml/min Est GFR (Non-Af Amer) ml/min BUN/Creatinine Ratio (10-20) Glucose (70-99(Fasting)) mg/dl POC Glucose 226 H (70-99) mg/dl Calcium (8.5-10.1) mg/dl Magnesium (1.7-2.4) mg/dl Total Bilirubin (0.2-1.0) mg/dl AST (13-39) U/L ALT (7-52) U/L Alkaline Phosphatase (34-104) U/L Total Creatine Kinase 61 (26-192) U/L C-Reactive Protein 19.93 H (0-0.5) mg/dl Total Protein (6.0-8.3) gm/dl Albumin (3.4-5.0) gm/dl Globulin (2.5-4.0) gm/dl Albumin/Globulin Ratio (0.9-2) TSH (0.300-4.500) uIu/ml Random Cortisol 57.36 mcg/dl Urine Color Urine Appearance (Clear) Urine pH (4.5-7.5) Ur Specific [place] (1.000-1.030) Urine Protein (Negative) Urine Glucose (UA) (Negative) Urine Ketones (Negative) Urine Blood (Negative) Urine Nitrite (Negative) Urine Bilirubin (Negative) Urine Urobilinogen (Negative) Ur Leukocyte Esterase (Negative) Urine RBC (0-4) /hpf Urine WBC (0-5) /hpf Ur Epithelial Cells (0-5) /lpf Urine Bacteria (Negative) Digoxin (0.8-2.0) ng/ml 09/09/21 Range/Units 14:53 WBC (4.8-10.8) K/uL RBC (4.2-5.4) M/uL Hgb (12.0-16.0) g/dL Hct (37-47) % MCV (80-100) fL MCH (25-34) pg MCHC (32-36) g/dL RDW Std Deviation (36.4-46.3) fL RDW Coeff of Argenis (11.5-14.5) % Plt Count (130-400) K/uL MPV (7.4-10.4) fL Immature Gran % (Auto) % Neut % (Auto) % Lymph % (Auto) % Green % (Auto) % Eos % (Auto) % Baso % (Auto) % Neut # (Auto) (1.4-6.5) K/uL Lymph # (Auto) (1.2-3.4) K/uL Green # (Auto) (0.11-0.59) K/uL Eos # (Auto) (0-0.5) K/uL Baso # (Auto) (0-0.2) K/uL Immature Gran # (Auto) (0.00-0.02) K/uL ESR (0-30) mm/hr PT 11.8 (9.0-12.0) Seconds INR 1.1 (0.9-1.1) APTT 34.3 H (21.0-31.0) Seconds PTT Ratio 1.2 Sodium (136-145) mmol/L Potassium (3.5-5.1) mmol/L Chloride (98-107) mmol/L Carbon Dioxide (21-32) mmol/L Anion Gap (3-11) BUN (6-23) mg/dl Creatinine (0.6-1.2) mg/dl Est Cr Clr Drug Dosing ml/min Est GFR ( Amer) ml/min Est GFR (Non-Af Amer) ml/min BUN/Creatinine Ratio (10-20) Glucose (70-99(Fasting)) mg/dl POC Glucose (70-99) mg/dl Calcium (8.5-10.1) mg/dl Magnesium (1.7-2.4) mg/dl Total Bilirubin (0.2-1.0) mg/dl AST (13-39) U/L ALT (7-52) U/L Alkaline Phosphatase (34-104) U/L Total Creatine Kinase (26-192) U/L C-Reactive Protein (0-0.5) mg/dl Total Protein (6.0-8.3) gm/dl Albumin (3.4-5.0) gm/dl Globulin (2.5-4.0) gm/dl Albumin/Globulin Ratio (0.9-2) TSH (0.300-4.500) uIu/ml Random Cortisol mcg/dl Urine Color Urine Appearance (Clear) Urine pH (4.5-7.5) Ur Specific [place] (1.000-1.030) Urine Protein (Negative) Urine Glucose (UA) (Negative) Urine Ketones (Negative) Urine Blood (Negative) Urine Nitrite (Negative) Urine Bilirubin (Negative) Urine Urobilinogen (Negative) Ur Leukocyte Esterase (Negative) Urine RBC (0-4) /hpf Urine WBC (0-5) /hpf Ur Epithelial Cells (0-5) /lpf Urine Bacteria (Negative) Digoxin (0.8-2.0) ng/ml Administered Medications Dextrose (D10w) 1,000 mls @ 100 mls/hr IV .Q10H STA Stop: 09/09/21 21:01 Last Admin: 09/09/21 11:08 Dose: 100 mls/hr Documented by: [id number] Potassium Chloride (K [place] / Wtr) 10 meq in 100 mls @ 100 mls/hr IV Q1H HOMAR; Protocol Stop: 09/09/21 15:59 Last Infusion: 09/09/21 15:20 Dose: 100 mls/hr Documented by: [id number] Admin: 09/09/21 14:20 Dose: 100 mls/hr Documented by: [id number] Discontinued Medications Dextrose (Dextrose 50% 50 Ml Syringe) 50 ml IV NOW ONE Stop: 09/09/21 10:09 Last Admin: 09/09/21 10:21 Dose: 50 ml Documented by: [id number] Dextrose (Dextrose 50% 50 Ml Syringe) 50 ml IV NOW ONE Stop: 09/09/21 10:36 Last Admin: 09/09/21 10:39 Dose: 50 ml Documented by: [id number] Dextrose (Dextrose 50% 50 Ml Syringe) 50 ml IV NOW ONE Stop: 09/09/21 11:03 Last Admin: 09/09/21 11:06 Dose: 50 ml Documented by: [id number] Sodium Chloride (Nss) 500 mls @ 999 mls/hr IV .Q31M HOMAR Stop: 09/09/21 10:45 Last Infusion: 09/09/21 10:53 Dose: 999 mls/hr Documented by: [id number] Admin: 09/09/21 10:22 Dose: 999 mls/hr Documented by: [id number] Piperacillin Sod/Tazobactam Sod (Zosyn) 4.5 gm in 120 mls @ 240 mls/hr IV NOW ONE Stop: 09/09/21 11:57 Last Infusion: 09/09/21 12:42 Dose: 240 mls/hr Documented by: [id number] Admin: 09/09/21 12:12 Dose: 240 mls/hr Documented by: [id number] Magnesium Sulfate/Dextrose (Magnesium Sulfate / D5w) 1 gm in 100 mls @ 100 mls/hr IV NOW STA Stop: 09/09/21 14:48 Last Infusion: 09/09/21 15:21 Dose: 100 mls/hr Documented by: [id number] Admin: 09/09/21 14:21 Dose: 100 mls/hr Documented by: [id number] Imaging Data Radiologist's Impression: Head CT 09/09/21 10:08 CT SCAN OF THE BRAIN WITHOUT IV CONTRAST CLINICAL HISTORY: Change in mental status. Unresponsive. COMPARISON STUDY: CT of the brain dated 07/06/2021. TECHNIQUE: Unenhanced axial CT scan of the brain is performed from the vertex to the skull base. A dose lowering technique was utilized adhering to the principles of ALARA. CT DOSE: 1041.13 mGy.cm FINDINGS: Brain parenchyma: There are age-related involutional changes noting advanced confluent subcortical and periventricular microangiopathic change. There is no hemorrhage, mass effect, or evidence of acute territorial ischemia by CT crit eria. Left cerebellar encephalomalacia is consistent with a remote insult. Chronic lacunar infarcts are noted in the basal ganglia. Caban-white matter differentiation is preserved. No extra-axial fluid collection is seen. Ventricles, sulci, cisterns: Prominent secondary to involutional change. Intracranial vasculature: There is atherosclerotic calcification of the cavernous carotid and vertebral arteries. Calvarium: Unremarkable. Sinuses and mastoids: There is trace mucosal thickening in the left frontal sinus. The remaining paranasal sinuses are clear. There is a small left mastoid effusion. The right mastoid air cells are well pneumatized. Orbits: The bony orbits are grossly intact. There are bilateral ocular lens implants. IMPRESSION: Chronic and senescent changes as above with no hemorrhage, mass effect, or evidence of acute territorial ischemia by CT criteria. ACT 112: Negative or not required by law. Electronically signed by: Cipriano Diaz M.D. 09/09/2021 12:11 PM Chest X-Ray 09/09/21 10:09 XR chest 1V portable HISTORY: weakness COMPARISON: Chest 07/20/2021. FINDINGS: No pneumothorax. The heart is mildly enlarged. There are poststernotomy changes. Old, healed right-sided rib fractures. There is mild central pulmonary vascular congestion without overt edema. Trace right and small left pleural effusions. Left mid to lower lung zone airspace opacities which have progressed in the interval. IMPRESSION: 1. Left mid to lower lung zone airspace opacity which has progressed in the interval. This likely represents a pneumonia. 2. Cardiomegaly with mild congestive change. 3. Trace right and small left pleural effusions. ACT 112: Negative or not required by law. Electronically signed by: Richard Fletcher M.D. 09/09/2021 11:17 AM Discharge Plan Visit Data Chief Complaint: Unresponsive ED Provider: Cipriano Greenberg Discharge Problem: Altered mental status, Hypoglycemia, Pneumonia, Acute UTI, Hypokalemia, Leukocytosis Patient Disposition: Admitted As Inpatient Condition: Serious Forms Stand Alone Forms: [facility] Prescriptions Prescriptions: No Action isosorbide mononitrate 120 mg tablet extended release 24 hr 240 mg PO QAM RF: 0 gabapentin 300 mg capsule 900 mg PO HS 90 Days Qty: 270 RF: 1 nitroglycerin 0.4 mg tablet, sublingual 0.4 mg sublingual UD PRN (Reason: Chest Pain) Qty: 25 RF: 5 metoprolol succinate 200 mg tablet extended release 24 hr See Rx Instructions .ROUTE .COMPLEX Qty: 135 RF: 3 levetiracetam 500 mg tablet 500 mg PO AMHS RF: 0 Ubrelvy 100 mg tablet 100 mg PO .EVERY 24 HOURS PRN (Reason: Migraine Headache) RF: 0 PreserVision AREDS [id number] Tablet 1 tab PO BIDM RF: 0 clopidogrel 75 mg Tablet 75 mg PO QAM Qty: 30 RF: 6 cyanocobalamin (vitamin B-12) 1,000 mcg/mL Solution 1,000 mcg IM MONTHLY RF: 0 Xarelto 15 mg tablet 15 mg PO .AFTER DINNER RF: 0 digoxin 125 mcg (0.125 mg) tablet 125 mcg PO Q2D RF: 0 epinephrine 0.3 mg/0.3 mL auto-injector 0.3 mg subcut UD PRN (Reason: Anaphylaxis) RF: 0 prednisolone acetate 1 % drops,suspension 1 drp OPR QAM RF: 0 famotidine [Acid [employer] (famotidine)] 10 mg Tablet 10 mg PO BID Qty: 60 RF: 0 folic acid 1 mg Tablet 1 mg PO QAM Qty: 30 RF: 0 acetaminophen 325 mg Tablet 650 mg PO Q4 MDD 3g PRN (Reason: Fever Or Pain) RF: 0 furosemide [Lasix] 40 mg tablet 40 mg PO BID RF: 0 calcitriol 0.25 mcg capsule 0.25 mcg PO Q OTHER DAY RF: 0 potassium chloride 20 mEq tablet,ER particles/crystals 20 meq PO DAILY RF: 0 prednisone 20 mg tablet 20 mg PO AMHS RF: 0 Dermoplast (with menthol) 20-0.5 % Aerosol 1 spray TOPICAL TID RF: 0 docusate sodium [Colace] 100 mg Capsule 100 mg PO .EVERY 24 HOURS PRN (Reason: Constipation) RF: 0 insulin aspart U-100 100 unit/mL (3 mL) insulin pen 6 unit SUBCUT AMHS RF: 0 loperamide [Imodium A-D] 2 mg Tablet 2 mg PO QAM RF: 0 loperamide [Imodium A-D] 2 mg Tablet 2 mg PO Q4H PRN (Reason: loose stools) RF: 0 polyethylene glycol 3350 [Miralax] 17 gram/dose Powder 17 g PO .EVERY 24 HOURS PRN (Reason: 3rd day of no bm) RF: 0 dextrose [Dex4 Glucose] 15 gram/59 mL Liquid 4 g PO .EVERY 15 MINUTES PRN (Reason: Hypoglycemia) RF: 0 Referrals Referrals: Cyndie Lozano Mcintyre [Primary Care Provider] -
[2021-09-09] MEDS ORDERED: SODIUM CHLORIDE 0.9% 500 ML IV SCH (10:15)
[2021-09-09] MEDS ORDERED: DEXTROSE 10% 1,000 ML IV STA (11:02)
--- NOTE | 2021-09-09 11:19 | XRay Report ---
XR chest 1V portable HISTORY: weakness COMPARISON: Chest 07/20/2021. FINDINGS: No pneumothorax. The heart is mildly enlarged. There are poststernotomy changes. Old, heale d right-sided rib fractures. There is mild central pulmonary vascular congestion without overt edema. Trace right and small left pleural effusions. Left mid to lower lung zone airspace opacities which h ave progressed in the interval. IMPRESSION: 1. Left mid to lower lung zone airspace opacity which has progressed in the interval. This likely rep resents a pneumonia. 2. Cardiomegaly with mild congestive change. 3. Trace right and small left pleural effusions. ACT 112: Negative or not required by law. Electronically signed by: Richard Fletcher M.D. 09/09/2021 11:17 AM
[2021-09-09] MEDS ORDERED: PIPERACILL/TAZOBAC CONSULT ACTIVE PRN (11:28)
[2021-09-09] MEDS ORDERED: PIPERACILLIN/TAZOBACTAM 4.5 GM/120 ML BAG IV ONE (11:28)
[2021-09-09 11:48] LABS: Appearance Urine Clear (Clear); Bilirubin Urine Negative (Negative); Blood Urine Trace-lysed (Negative); Color Urine Yellow; Glucose Urine UA 1+ (Negative); Ketones Urine Negative (Negative); Leukocyte Esterase Urine 2+ (Negative); Nitrite Urine Positive (Negative); Protein Urine 1+ (Negative); Urobilinogen Urine Negative (Negative); pH Urine 5.5 (4.5-7.5)
[2021-09-09 12:04] LABS: Epithelial Cell Urine 0-5 /lpf (0-5)
[2021-09-09 12:05] LABS: Hemoglobin 9.1 g/dL (12.0-16.0); Mean Corpuscular Hemoglobin 32.4 pg (25-34); Mean Corpuscular Hgb Conc 33.7 g/dL (32-36); Mean Corpuscular Volume 96.1 fL (80-100); Mean Platelet Volume 10.4 fL (7.4-10.4); Platelet Count 226 K/uL (130-400); RDW Standard Deviation 56.2 fL (36.4-46.3); Red Blood Count 2.81 M/uL (4.2-5.4); White Blood Count 24.85 K/uL (4.8-10.8)
[2021-09-09 12:05] LABS: Bacteria Urine 2+ (Negative); WBC Urine >30 /hpf (0-5)
--- NOTE | 2021-09-09 12:12 | CT Scan Report ---
CT SCAN OF THE BRAIN WITHOUT IV CONTRAST CLINICAL HISTORY: Change in mental status. Unresponsive. COMPARISON STUDY: CT of the brain dated 07/06/2021. TECHNIQUE: Unenhanced axial CT scan of the brain is performed from the vertex to the skull base. A do se lowering technique was utilized adhering to the principles of ALARA. CT DOSE: 1041.13 mGy.cm FINDINGS: Brain parenchyma: There are age-related involutional changes noting advanced confluent subcortical a nd periventricular microangiopathic change. There is no hemorrhage, mass effect, or evidence of acute territorial ischemia by CT criteria. Left cerebellar encephalomalacia is consistent with a remote in sult. Chronic lacunar infarcts are noted in the basal ganglia. Caban-white matter differentiation is p reserved. No extra-axial fluid collection is seen. Ventricles, sulci, cisterns: Prominent secondary to involutional change. Intracranial vasculature: There is atherosclerotic calcification of the cavernous carotid and vertebr al arteries. Calvarium: Unremarkable. Sinuses and mastoids: There is trace mucosal thickening in the left frontal sinus. The remaining para nasal sinuses are clear. There is a small left mastoid effusion. The right mastoid air cells are well pneumatized. Orbits: The bony orbits are grossly intact. There are bilateral ocular lens implants. IMPRESSION: Chronic and senescent changes as above with no hemorrhage, mass effect, or evidence of ac yeyo territorial ischemia by CT criteria. ACT 112: Negative or not required by law. Electronically signed by: Cipriano Diaz M.D. 09/09/2021 12:11 PM
[2021-09-09 12:35] LABS: Albumin Globulin Ratio 0.9 (0.9-2); Albumin Level 1.9 gm/dl (3.4-5.0); BUN Creatinine Ratio 47.4 (10-20); Bilirubin,Total 0.5 mg/dl (0.2-1.0); Calcium 6.9 mg/dl (8.5-10.1); Creatinine Clr Calc Pharmacy 28.7 ml/min; Est GFR (African American) 51.1 ml/min; Est GFR (Non-African American) 44.1 ml/min; Globulin 2.2 gm/dl (2.5-4.0); Magnesium 1.6 mg/dl (1.7-2.4); Potassium 2.8 mmol/L (3.5-5.1); Total Protein 4.1 gm/dl (6.0-8.3)
[2021-09-09 12:52] LABS: Basophils # (auto) 0.02 K/uL (0-0.2); Basophils % (auto) 0.1 %; Immature Granulocytes % (auto) 8.5 %; Lymphocytes # (auto) 0.73 K/uL (1.2-3.4); Lymphocytes % (auto) 2.9 %; Monocytes # (auto) 1.36 K/uL (0.11-0.59); Monocytes % (auto) 5.5 %; Neutrophils # (auto) 20.64 K/uL (1.4-6.5)
[2021-09-09] MEDS ORDERED: MAGNESIUM SULFATE / D5W 1 GM/100 ML BAG IV STA ×2 (13:49→14:41)
[2021-09-09] MEDS ORDERED: DOXYCYCLINE HYCLATE 100 MG in DEXTROSE 5% 100 ML IV STA (13:50)
[2021-09-09] MEDS: POTASSIUM CHLORIDE / WTR 10 MEQ/100 ML PLCT IV SCH ×6 (14:20→23:23)
--- NOTE | 2021-09-09 14:24 | History & Physical Report ---
Date of Service September 09, 2021 Assessment & Plan (1) Hypoglycemia: Plan: - Initially lethargic with BGMs 48, 58 at facility. 33 in our ED. Received D50 x3 in ED and D10 drip started, held as sugar increased to 200-300 range. - BGS ACHS. - At home, receives 6 units of Novolin in AM and PM with SSI starting with BGMs > 200. - Per records from [facility], patient's sugars have been erratic from 70s- 400s, BGM at HS last night 452, 94 at 0700 this AM. - She was admitted on 07/26 for similar presentation. At that time, had been worked up for adrenal insufficiency and started on prednisone 20 mg BID since 07/23, suspect today's hypoglycemia may be more related to infection. (2) Pneumonia: Plan: - WBC 24.5, procalcitonin 12.57. CRP 19.93. ESR 25. - Patient reportedly without symptoms, however CXR demonstrates what appears to be a pneumonia at the left lower lung bases. - Treated empirically in the ED with Zosyn and doxycycline, will narrow to ceftriaxone with doxycycline. - Blood cultures ordered, pending. (3) UTI (urinary tract infection): Plan: - WBC 24.5, UA with nitrite, leuk esterase, >30 WBCs, bacteria. - Will already be on ceftriaxone for pneumonia, which will cover pathogens likely causing UTI. - Plascencia catheter in place upon arrival to ED from facility. - Urine culture pending. (4) Abdominal pain: Plan: -LLQ on exam with elevated WBC count. -CT abdomen and pelvis to assess for possible diverticulitis or other source of pain has been ordered, pending. (5) Hypokalemia: Plan: - 2.8, replete with K riders, recheck this evening, . Recheck again in AM. - On telemetry. (6) Hypomagnesemia: Plan: -1.6, replete and recheck in AM. (7) CAD (coronary artery disease): Plan: -S/P PCI, CABG -Continue statin, plavix, isosorbide. (8) HFrEF (heart failure with reduced ejection fraction): Plan: -Continue Lasix 40 mg BID, low sodium diet, daily weight, I&Os. -She has edema in b/l upper and lower extremities. (9) Atrial flutter: Plan: -Previously a fib, reportedly has been a flutter s/p cardioversion in August 2020. -Continue Xarelto, metoprolol, digoxin. (10) Mitral regurgitation: Plan: -Per most recent cardiology note, is not severe, continue to monitor. (11) Anemia: Plan: -Hgb 9.1 today, repeat is 9.7, 11.7 on 08/05. Normocytic. Previous labs show her range is 8-10. No obvious source of bleeding today. We are obtaining CT A/Pfor LLQ pain ? diverticulitis. -History of gastric bypass surgery ~20 years ago. Receives monthly B12 injections. -Continue to trend on AM labs. (12) CKD (chronic kidney disease) stage 3, GFR 30-59 ml/min: Plan: -BUN 55, Cr 1.16, CrCl 28.7. -Avoid nephrotoxic agents, renally dose medications as able. (13) Weakness: Plan: -Had extensive evaluation for this on last admission, including for adrenal insufficiency, see below. -ESR/CRP not elevated then, both elevated today, although in setting of infection. Neuro consulted last admission: * --> MRI Brain: no acute findings, no intracranial mass/pathologic enhancement. 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 No associated cord signal abnormality.. Moderate central canal stenosis at C3-C4 and C5-C6, as described above.Multilevel neural foraminal stenosis. Normal cervical cord signal and caliber. No fx * Muscle Bx completed on 07/26 (14) Temporal lobe epilepsy: Plan: -Continue on keppra. (15) Idiopathic polyneuropathy: Plan: -Continue gabapentin. (16) Adrenal insufficiency: Plan: -Worked up for this on last admission d/t hypoglycemia, weakness, fatigue: -Failed cosyntropin stim test.Baseline cortisol was 15, but she had NO rise in cortisol level with 1mcg cosyntropin x 1. -started prednisone 20mg BID 07/23 and has appt with Nanette SLOAN later this month. -Suspect that her hypoglycemia today is more likely due to infection. Will hold prednisone for now, can add on hydrocortisone for BP support should she require it. Normotensive now. -Random cortisol today: 57.36 (17) Intrahepatic cholangiocarcinoma: Plan: -Unclear history of intrahepatic cholangiocarcinoma; per patient on last admission, this "resolved without treatment"; LFTs wnl. 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 Plan: -Admit to med/surg w/ telemetry. -SCDs, Xarelto for DVT ppx. -DNR/DNI. History of Present Illness Chief Complaint: lethargy with hypoglycemia Primary Care Provider: Marta Agee at [facility] Ms. Quezada is an80yo female with a PMH of atrial fibrillation/flutter, ANDREY, CAD s/p PCI, CKD, gastric bypass, ? adrenal insufficiency, and intrahepatic cholangiocarcinoma who presents from [facility] due to lethargy and low blood sugar. Due to patient' decreased mental status, unable to obtain history from patient, historical information provided by ED provider, facility staff. Today he seemed more tired, sleepy, lethargic. Sugar was checked, it was 48. They were unable to obtain an IV site, so they gave her 1 mg of IM glucagon. The sugar only increased to 58, so she was sent here for evaluation. By report, at her care center, her blood pressure was in the 70s systolic. She has been normotensive here in the ED. Son at bedside, he reports there were no events leading up to today's presentation, patient was without any complaints of fever/chills, chest pain, palpitations, SOB, cough, or urinary symptoms. At baseline, she is bedbound due to weakness, however she is cognitively intact. Staff at [facility] did not report a deviation from patient's baseline prior to this AM. In ED, VSS, wnl. Labs significant for WBC 24.85, Hgb 9.1 (~baseline), K+ 2.8, BUN 55, glucose 340, Ca 6.9, Mg 1.6, UA w/ 1+ protein, glucose, nitrite, leuk esterase, >30 WBCs, bacteria. CXR with Left mid to lower lung zone airspace opacity which has progressed in the interval, cardiomegaly with mild congestive change, and trace right and small left pleural effusions. Head CT with chronic and senescent changes as above with no hemorrhage, mass effect, or evidence of acute territorial ischemia. She received Zosyn, doxycycline for empiric coverage for a pneumonia and UTI, D50 bolus x3, KCl 10 mEq x2, and Mg x2. D10 drip @ 100cc/hr started, however held as patient's sugar increased to 200-300s. Hospitalist service was consulted for further evaluation and admission. Allergies Allergy/AdvReac Type Severity Reaction Status Date / Time banana Allergy Unknown HIVES/ITCHI Verified 09/09/21 15:34 NG Iodinated Contrast Media Allergy Unknown "CONTRAST"- Verified 09/09/21 15:34 HIVES/ITCHI NG povidone-iodine Allergy Unknown "drops for Verified 09/09/21 15:34 [From Betadine] eye before injection" - fox/vision trouble soap [From Betadine] Allergy Unknown "drops for Verified 09/09/21 15:34 eye before injection" - fox/vision trouble Home Medications Medication Instructions Recorded Confirmed Type vitamins A,C,B-locw-tfpkui 7,160 1 tab PO BIDM 07/03/19 09/09/21 History unit-113 mg-100 unit tablet (PreserVision AREDS) gabapentin 300 mg capsule 900 mg PO HS 90 Days #270 cap 08/26/20 09/09/21 Rx nitroglycerin 0.4 mg sublingual 0.4 mg SUBLINGUAL UD PRN #25 tab 01/04/21 09/09/21 Rx tablet clopidogrel 75 mg tablet 75 mg PO QAM #30 tab 01/09/21 09/09/21 Rx prednisolone acetate 1 % eye 1 drp OPR QAM ml 03/24/21 09/09/21 History drops,suspension cyanocobalamin (vitamin B-12) 1,000 mcg IM MONTHLY 05/15/21 09/09/21 History 1,000 mcg/mL injection solution isosorbide mononitrate 120 mg 240 mg PO QAM tab 06/18/21 09/09/21 History tablet,extended release 24 hr digoxin 125 mcg (0.125 mg) tablet 125 mcg PO Q2D 07/06/21 09/09/21 History epinephrine 0.3 mg/0.3 mL 0.3 mg SUBCUT UD PRN 07/06/21 09/09/21 History injection, auto-injector rivaroxaban 15 mg tablet (Xarelto) 15 mg PO .AFTER DINNER 07/06/21 09/09/21 History metoprolol succinate 200 mg See Rx Instructions .ROUTE 07/15/21 09/09/21 Rx tablet,extended release 24 hr .COMPLEX #135 tab famotidine 10 mg tablet (Acid 10 mg PO BID #60 tab 08/05/21 09/09/21 Rx Paver Operator (famotidine)) folic acid 1 mg tablet 1 mg PO QAM #30 tab 08/05/21 09/09/21 Rx levetiracetam 500 mg tablet 500 mg PO AMHS 08/27/21 09/09/21 History ubrogepant 100 mg tablet (Ubrelvy) 100 mg PO .EVERY 24 HOURS PRN tab 08/27/21 09/09/21 History acetaminophen 325 mg tablet 650 mg PO Q4 PRN MDD 3g 09/09/21 09/09/21 History benzocaine 20 %-menthol 0.5 % 1 spray TOPICAL TID 09/09/21 09/09/21 History topical aerosol (Dermoplast (with menthol)) calcitriol 0.25 mcg capsule 0.25 mcg PO Q OTHER DAY 09/09/21 09/09/21 History dextrose 15 gram/59 mL oral liquid 4 g PO .EVERY 15 MINUTES PRN 09/09/21 09/09/21 History (Dex4 Glucose) docusate sodium 100 mg capsule 100 mg PO .EVERY 24 HOURS PRN 09/09/21 09/09/21 History (Colace) furosemide 40 mg tablet (Lasix) 40 mg PO BID 09/09/21 09/09/21 History insulin aspart U-100 100 unit/mL 6 unit [facility]BCUT [facility] 09/09/21 09/09/21 History (3 mL) subcutaneous pen loperamide 2 mg tablet (Imodium 2 mg PO Q4H PRN 09/09/21 09/09/21 History A-D) loperamide 2 mg tablet (Imodium 2 mg PO QAM 09/09/21 09/09/21 History A-D) polyethylene glycol 3350 17 17 g PO .EVERY 24 HOURS PRN 09/09/21 09/09/21 History gram/dose oral powder (Miralax) potassium chloride 20 mEq 20 meq PO DAILY 09/09/21 09/09/21 History tablet,extended release(part/cryst) prednisone 20 mg tablet 20 mg PO AMHS 09/09/21 09/09/21 History Past Med/Surg History Medical History Benign essential tremor CAD (coronary artery disease) CABG x 1 vessel 2015 Cerebellar infarct Follows with neuro= "Prior cerebellar stroke without residual deficits" - continue ASA and statin Chronic diastolic congestive heart failure Chronic hypoxemic respiratory failure Chronic low back pain Copper deficiency Corneal dystrophy CVA (cerebral vascular accident) NO RESIDUAL AT AGE 50 Diabetes Endothelial corneal dystrophy Family history of reaction to anesthesia SISTER - HIVES, N/V GERD (gastroesophageal reflux disease) History of cardioversion 1978 & AUGUST 2020 History of SD (myocardial infarction) 1978 History of vertigo Hyperlipemia Hypertension Hypokalemia Intrahepatic cholangiocarcinoma Liver cancer DX AUGUST 2020 - [facility] Liver mass DX JULY 2020 Macular degeneration Mitral regurgitation Mild to moderate per 2019 ECHO Multiple pulmonary nodules determined by computed tomography of lung Osteoporosis Osteoporosis with fracture fx ribs from falling, NO CURRENT FRACTURES Pancreatic tumor had surgery removal of head Paroxysmal atrial fibrillation and flutter--On Xarelto , DX 2018 - HX CARDIOVERSION AUGUST 2020 Peripheral neuropathy Pulmonary hypertension PASP 30-40mmHg Pulmonary nodule monitored yearly Sleep apnea Spondylosis Temporal lobe epilepsy Follows with neuro Started on Keppra in Spring 2019 with no further events since that time Continue Keppra per 08/10/20 neuro note Weakness Surgical History Gastric bypass status for obesity H/O abdominoplasty WITH NECK REPAIRED WELL H/O cataract extraction right and left H/O ovarian cystectomy H/O thumb surgery left and right H/O Whipple procedure History of appendectomy History of breast biopsy several both sides History of corneal transplant right eye History of ear surgery 1967, LEFT History of liver biopsy History of resection of pancreas head of pancreas removed 2009 History of total right hip replacement History of transmyocardial revascularization Hx of cardiac cath 2013, AUGUST 2015, october 2020, november 2020 Hx of cholecystectomy S/P CABG (coronary artery bypass graft) 2016 S/P cholecystectomy S/P tonsillectomy and adenoidectomy S/P trigger finger release left thumb x3, one surgery on right Status post right knee replacement Family History Sister Breast cancer 2 sisters Diabetes 2 sisters Heart disease Cancer 2 sisters Father , age 64 of an SD Myocardial infarction Heart disease Hypertension Brother Myocardial infarction Diabetes Heart disease 2 brothers Hypertension Mother , age 92 of a stroke Non-Hodgkin lymphoma Stroke Cancer Grandfather Diabetes Heart disease Denies family history of Ovarian cancer Prostate cancer Colorectal cancer Social History Smoking Status: Former smoker Age Started Using Tobacco: 16; Age Quit Using Tobacco: 50; packs per day: 1.5; Cigarettes Per Day: 30; Second Hand Exposure: No; Do You Dip or Chew Tobacco: No; Tobacco Cessation Education Requested by Patient: No Hx Alcohol Use: Yes Alcohol type: wine Hx Substance Use: No Preferred Language: Greenlandic Communication Ability: Impaired Visual Impairment: Limited Hearing Ability: Normal Roofing Applicator Required: No Beliefs That Will Affect Care: None marital status: / Current Living Situation: Personal Care Facility Current Living Situation Comment: [facility] current occupational status: retired Other Information That Helps Us Care for You: No Feels Safe at Home: Yes Safety Concerns: Feels Safe At This Time Childhood Exposure to Second-Hand Smoke: No caffeine: No during the past year weight has: decreased > 10 lbs Dental Care, Regularly: Yes Physical Activity Frequency: Does not Exercise Seatbelt Use: always Sunscreen Use: Yes Do you think of yourself as: straight/heterosexual Gender Identity: Female Assistive Devices: Walker Review of Systems Review of Systems: Unobtainable due to cognitive status Physical Exam Physical Exam: General: Patient is sleeping on my exam, drowsy and hard to awaken; VSS, on room air. Head: Normocephalic, atraumatic ENT: PERRL, EOMI, no pharyngeal exudate, mucous membranes moist Chest: Clear to auscultation, some crackles in lower lung cam, no wheezes or rhonchi Cardiac: irregular rhythm, regular rate, no murmur, no JVD, normal peripheral pulses, good capillary refill Abdominal: NABS x 4 quadrants, soft, nontender to palpation, no rebound, guarding or tenderness Extremities: b/l UE edema, no evidence of IV infiltration; bruises as documented below; lower extremities wrapped by wound care; calfs nontender to palpation Psych: Sleeping on my exam Neuro: strength intact bilaterally and rated 5/5, no motor deficits, speech is clear, no peripheral sensory deficits Skin: bruising along b/l arms and finger pads Results & Data Results & Data ([facility]) Vital Signs (Past 12 Hours) Vital Signs Temp Pulse Pulse Resp BP BP Pulse Ox 09/09/21 13:00 77 20 123/62 93 09/09/21 11:32 84 16 129/60 97 09/09/21 11:17 92 H 20 136/97 96 09/09/21 09:50 36.9 C 83 20 133/55 L 95 Laboratory Results Abnormal lab results 09/09/21 09/09/21 09/09/21 Range/Units 10:33 10:54 11:02 WBC (4.8-10.8) K/uL RBC (4.2-5.4) M/uL Hgb (12.0-16.0) g/dL Hct (37-47) % RDW Std Deviation (36.4-46.3) fL RDW Coeff of Argenis (11.5-14.5) % Neut # (Auto) (1.4-6.5) K/uL Lymph # (Auto) (1.2-3.4) K/uL [place] # (Auto) (0.11-0.59) K/uL Immature Gran # (Auto) (0.00-0.02) K/uL Potassium (3.5-5.1) mmol/L Chloride (98-107) mmol/L Carbon Dioxide (21-32) mmol/L BUN (6-23) mg/dl BUN/Creatinine Ratio (10-20) Glucose (70-99(Fasting)) mg/dl POC Glucose 33 L* 42 L* (70-99) mg/dl Calcium (8.5-10.1) mg/dl Magnesium (1.7-2.4) mg/dl Total Protein (6.0-8.3) gm/dl Albumin (3.4-5.0) gm/dl Globulin (2.5-4.0) gm/dl Urine Protein 1+ H (Negative) Urine Glucose (UA) 1+ H (Negative) Urine Blood Trace-lysed H (Negative) Urine Nitrite Positive A (Negative) Ur Leukocyte Esterase 2+ H (Negative) Urine RBC 5-10 H (0-4) /hpf Urine WBC >30 H (0-5) /hpf Urine Bacteria 2+ H (Negative) Digoxin (0.8-2.0) ng/ml 09/09/21 09/09/21 09/09/21 Range/Units 11:21 11:22 11:24 WBC (4.8-10.8) K/uL RBC (4.2-5.4) M/uL Hgb (12.0-16.0) g/dL Hct (37-47) % RDW Std Deviation (36.4-46.3) fL RDW Coeff of Argenis (11.5-14.5) % Neut # (Auto) (1.4-6.5) K/uL Lymph # (Auto) (1.2-3.4) K/uL [place] # (Auto) (0.11-0.59) K/uL Immature Gran # (Auto) (0.00-0.02) K/uL Potassium (3.5-5.1) mmol/L Chloride (98-107) mmol/L Carbon Dioxide (21-32) mmol/L BUN (6-23) mg/dl BUN/Creatinine Ratio (10-20) Glucose (70-99(Fasting)) mg/dl POC Glucose 307 H* 181 H 101 H (70-99) mg/dl Calcium (8.5-10.1) mg/dl Magnesium (1.7-2.4) mg/dl Total Protein (6.0-8.3) gm/dl Albumin (3.4-5.0) gm/dl Globulin (2.5-4.0) gm/dl Urine Protein (Negative) Urine Glucose (UA) (Negative) Urine Blood (Negative) Urine Nitrite (Negative) Ur Leukocyte Esterase (Negative) Urine RBC (0-4) /hpf Urine WBC (0-5) /hpf Urine Bacteria (Negative) Digoxin (0.8-2.0) ng/ml 09/09/21 09/09/21 09/09/21 Range/Units 11:27 11:33 11:33 WBC (4.8-10.8) K/uL RBC (4.2-5.4) M/uL Hgb (12.0-16.0) g/dL Hct (37-47) % RDW Std Deviation (36.4-46.3) fL RDW Coeff of Argenis (11.5-14.5) % Neut # (Auto) (1.4-6.5) K/uL Lymph # (Auto) (1.2-3.4) K/uL [place] # (Auto) (0.11-0.59) K/uL Immature Gran # (Auto) (0.00-0.02) K/uL Potassium 2.8 L (3.5-5.1) mmol/L Chloride 108 H (98-107) mmol/L Carbon Dioxide 20 L (21-32) mmol/L BUN 55 H (6-23) mg/dl BUN/Creatinine Ratio 47.4 H (10-20) Glucose 340 H* (70-99(Fasting)) mg/dl POC Glucose 136 H (70-99) mg/dl Calcium 6.9 L (8.5-10.1) mg/dl Magnesium 1.6 L (1.7-2.4) mg/dl Total Protein 4.1 L (6.0-8.3) gm/dl Albumin 1.9 L (3.4-5.0) gm/dl Globulin 2.2 L (2.5-4.0) gm/dl Urine Protein (Negative) Urine Glucose (UA) (Negative) Urine Blood (Negative) Urine Nitrite (Negative) Ur Leukocyte Esterase (Negative) Urine RBC (0-4) /hpf Urine WBC (0-5) /hpf Urine Bacteria (Negative) Digoxin 0.5 L (0.8-2.0) ng/ml 09/09/21 09/09/21 09/09/21 Range/Units 11:33 12:10 12:46 WBC 24.85 H (4.8-10.8) K/uL RBC 2.81 L (4.2-5.4) M/uL Hgb 9.1 L (12.0-16.0) g/dL Hct 27.0 L (37-47) % RDW Std Deviation 56.2 H (36.4-46.3) fL RDW Coeff of Argenis 16.0 H (11.5-14.5) % Neut # (Auto) 20.64 H (1.4-6.5) K/uL Lymph # (Auto) 0.73 L (1.2-3.4) K/uL [place] # (Auto) 1.36 H (0.11-0.59) K/uL Immature Gran # (Auto) 2.10 H (0.00-0.02) K/uL Potassium (3.5-5.1) mmol/L Chloride (98-107) mmol/L Carbon Dioxide (21-32) mmol/L BUN (6-23) mg/dl BUN/Creatinine Ratio (10-20) Glucose (70-99(Fasting)) mg/dl POC Glucose 261 H 293 H (70-99) mg/dl Calcium (8.5-10.1) mg/dl Magnesium (1.7-2.4) mg/dl Total Protein (6.0-8.3) gm/dl Albumin (3.4-5.0) gm/dl Globulin (2.5-4.0) gm/dl Urine Protein (Negative) Urine Glucose (UA) (Negative) Urine Blood (Negative) Urine Nitrite (Negative) Ur Leukocyte Esterase (Negative) Urine RBC (0-4) /hpf Urine WBC (0-5) /hpf Urine Bacteria (Negative) Digoxin (0.8-2.0) ng/ml 09/09/21 Range/Units 13:40 WBC (4.8-10.8) K/uL RBC (4.2-5.4) M/uL Hgb (12.0-16.0) g/dL Hct (37-47) % RDW Std Deviation (36.4-46.3) fL RDW Coeff of Argenis (11.5-14.5) % Neut # (Auto) (1.4-6.5) K/uL Lymph # (Auto) (1.2-3.4) K/uL [place] # (Auto) (0.11-0.59) K/uL Immature Gran # (Auto) (0.00-0.02) K/uL Potassium (3.5-5.1) mmol/L Chloride (98-107) mmol/L Carbon Dioxide (21-32) mmol/L BUN (6-23) mg/dl BUN/Creatinine Ratio (10-20) Glucose (70-99(Fasting)) mg/dl POC Glucose 232 H (70-99) mg/dl Calcium (8.5-10.1) mg/dl Magnesium (1.7-2.4) mg/dl Total Protein (6.0-8.3) gm/dl Albumin (3.4-5.0) gm/dl Globulin (2.5-4.0) gm/dl Urine Protein (Negative) Urine Glucose (UA) (Negative) Urine Blood (Negative) Urine Nitrite (Negative) Ur Leukocyte Esterase (Negative) Urine RBC (0-4) /hpf Urine WBC (0-5) /hpf Urine Bacteria (Negative) Digoxin (0.8-2.0) ng/ml Diagnostic Findings Head CT 09/09/21 10:08 CT SCAN OF THE BRAIN WITHOUT IV CONTRAST CLINICAL HISTORY: Change in mental status. Unresponsive. COMPARISON STUDY: CT of the brain dated 07/06/2021. TECHNIQUE: Unenhanced axial CT scan of the brain is performed from the vertex to the skull base. A dose lowering technique was utilized adhering to the principles of ALARA. CT DOSE: 1041.13 mGy.cm FINDINGS: Brain parenchyma: There are age-related involutional changes noting advanced confluent subcortical and periventricular microangiopathic change. There is no hemorrhage, mass effect, or evidence of acute territorial ischemia by CT criteria. Left cerebellar encephalomalacia is consistent with a remote insult. Chronic lacunar infarcts are noted in the basal ganglia. Caban-white matter differentiation is preserved. No extra-axial fluid collection is seen. Ventricles, sulci, cisterns: Prominent secondary to involutional change. Intracranial vasculature: There is atherosclerotic calcification of the cavernous carotid and vertebral arteries. Calvarium: Unremarkable. Sinuses and mastoids: There is trace mucosal thickening in the left frontal sinus. The remaining paranasal sinuses are clear. There is a small left mastoid effusion. The right mastoid air cells are well pneumatized. Orbits: The bony orbits are grossly intact. There are bilateral ocular lens implants. IMPRESSION: Chronic and senescent changes as above with no hemorrhage, mass effect, or evidence of acute territorial ischemia by CT criteria. ACT 112: Negative or not required by law. Electronically signed by: Cipriano Diaz M.D. 09/09/2021 12:11 PM Chest X-Ray 09/09/21 10:09 XR chest 1V portable HISTORY: weakness COMPARISON: Chest 07/20/2021. FINDINGS: No pneumothorax. The heart is mildly enlarged. There are poststernotomy changes. Old, healed right-sided rib fractures. There is mild central pulmonary vascular congestion without overt edema. Trace right and small left pleural effusions. Left mid to lower lung zone airspace opacities which have progressed in the interval. IMPRESSION: 1. Left mid to lower lung zone airspace opacity which has progressed in the interval. This likely represents a pneumonia. 2. Cardiomegaly with mild congestive change. 3. Trace right and small left pleural effusions. ACT 112: Negative or not required by law. Electronically signed by: Richard Fletcher M.D. 09/09/2021 11:17 AM ECG Additional Comments: Atrial flutter with variable A-V block with premature ventricular or aberrantly conducted complexes Right bundle branch block Possible Lateral infarct (cited on or before 23-JUN-2021) T wave abnormality, consider inferior ischemia Abnormal ECG When compared with ECG of 20-JUL-2021 15:15, Atrial flutter has replaced Atrial fibrillation ST now depressed in Inferior leads QT has shortened. Code Status & VTE Plan Code Status DNR/DNI. Supervising Physician Co-Signing Physician Notes I personally saw and examined the patient. I verified all solares points and agree with Marita Perez PA-C with the following exceptions and/or additions: 80 year old female admission for lethargy. Unable to get any history from patient. She is complaining of pain everywhere. O/E HS1+2, RRR, no murmurs, Chest bibasal crackles, poor inspiratory effort. Reduced air entry left base. Abdo LLQ pain with guarding out of proportion to all other places I press and cause pain. Stage 2 perineal ulcer. Bruising on right lower extremity. Alert but disorientated x3. A/P Infective encephalopathy - suspect secondary to infection, suspected PNA. Procalcitionin 12.57. Urine also possibility with grossly positive UA. Perineal skin ulcer but no surrounding cellulitis to suspect this as a source but will have wound care evaluate. LLQ pain on exam. CT A/P without IV contrast (contrast allergy) pending - handed over to night team as possibility patient may have acute diverticulitits although difficult to exam as she is having pain everywhere. Stool is formed therefore do not suspect c. diff. Agree with switching antibiotics to cover for PNA with ceftriaxone and doxycycline as above. PNA - as above, patient is not septic but far off her baseline per PAs discussion with her son Possible adrenal insufficiency - diagnosed last admission and remains on prednisone. In setting of infection and unable to tolerate oral intake will hold prednisone, consider stress dose steroids if BP drops however with hypokalemia I do not believe current episode is consistent with adrenal insufficiency. Cortisol level appropriately high. Replace electrolytes as above and will switch her seizure medication to IV as unable to take oral at the current time. D/C gabapentin given high dose and significant lethargy (she does not take this for seizures). PG Care Time/CCT Total # of Minutes Spent Total Time Spent with Patient: Total time spent is greater than 50% in coordination of care (as documented) at patient's floor/unit and/or counseling patient: Coding Level of Care Code 84077 Initial Inpt Care Lvl 3 Diagnoses Pneumonia J18.9 UTI (urinary tract infection) N39.0 Anemia D64.9 Anemia type: unspecified type Hypomagnesemia E83.42 Hypoglycemia E16.2 Weakness R53.1 Idiopathic polyneuropathy G60.9 Adrenal insufficiency E27.40 CAD (coronary artery disease) I25.10 Associated angina: without angina Coronary Disease-Associated Artery/Lesion type: [place] artery [place] vs. 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 transplanted heart: [place] heart Qualified Code(s): I25.10 - Atherosclerotic heart disease of [place] coronary artery without angina pectoris (2) Anemia Anemia type: unspecified type Qualified Code(s): D64.9 - Anemia, unspecified
[2021-09-09] MEDS ORDERED: POTASSIUM CHLORIDE / WTR 10 MEQ/100 ML PLCT IV STA (14:41)
[2021-09-09 15:23] LABS: INR 1.1 (0.9-1.1); Partial Thromboplastin Ratio 1.2; Partial Thromboplastin Time 34.3 Seconds (21.0-31.0); Prothrombin Time 11.8 Seconds (9.0-12.0)
[2021-09-09 15:25] LABS: C Reactive Protein 19.93 mg/dl (0-0.5)
[2021-09-09] MEDS ORDERED: ONDANSETRON INJ 2 MG/ML 2 ML VIAL IV PRN (17:27)
[2021-09-09] MEDS ORDERED: POLYETHYLENE (MIRALAX) 17 GM PACK PO PRN (17:27)
[2021-09-09] MEDS ORDERED: RIVAROXABAN 15 MG TAB PO SCH (17:27)
[2021-09-09] MEDS ORDERED: DOCUSATE SODIUM 100 MG CAP PO PRN (17:27)
[2021-09-09] MEDS ORDERED: CARBOHYDRATES FOR HYPOGLYCEMIA PO PRN (17:27)
[2021-09-09] MEDS ORDERED: GLUCOSE 40% GEL 15 GM TUBE PO PRN (17:27)
[2021-09-09] MEDS ORDERED: GLUCAGON FOR INJ 1 MG VIAL SQ PRN (17:27)
[2021-09-09] MEDS ORDERED: NON-FORMULARY MEDICATION (Ubrogepant [Ubrelvy] 100 mg tablet) PO PRN (17:27)
[2021-09-09] MEDS ORDERED: LACTATED RINGER'S 1,000 ML IV SCH (17:27)
[2021-09-09] MEDS ORDERED: PHARMACY GLYCEMIC MGMT CONSULT PRN (17:27)
[2021-09-09] MEDS ORDERED: DEXTROSE 50% 50 ML SYRINGE IV PRN (17:27)
[2021-09-09] MEDS ORDERED: NITROGLYCERIN SL 0.4 MG/TAB TAB SL PRN (17:27)
[2021-09-09] MEDS ORDERED: NON-FORMULARY MEDICATION (Vitamins A,C,E-Zinc-Copper [Preservision Areds] 7,160-113-100 u PO SCH (17:27)
[2021-09-09] MEDS ORDERED: ACETAMINOPHEN 325 MG TAB PO PRN (17:27)
[2021-09-09] MEDS ORDERED: GLUCOSE 10 TABS/TUBE PO PRN (17:27)
[2021-09-09] MEDS ORDERED: predniSONE 20 MG TAB PO SCH (17:27)
[2021-09-09] MEDS: CALCITRIOL 0.25 MCG CAPSULE PO SCH (17:39)
[2021-09-09] MEDS: DIGOXIN 0.125 MG TAB PO SCH (17:39)
[2021-09-09] MEDS: cefTRIAXone SODIUM 1,000 MG in DEXTROSE 5% 50 ML IV SCH ×2 (19:06→20:24)
[2021-09-09 19:50] LABS: Anion Gap 11 (3-11); BUN Creatinine Ratio 49.5 (10-20); Blood Urea Nitrogen 55 mg/dl (6-23); Calcium 7.3 mg/dl (8.5-10.1); Carbon Dioxide 20 mmol/L (21-32); Chloride 110 mmol/L (98-107); Creatinine Clr Calc Pharmacy 32.6 ml/min; Est GFR (African American) 53.9 ml/min; Est GFR (Non-African American) 46.5 ml/min; Glucose 228 mg/dl (70-99(Fasting)); Sodium 141 mmol/L (136-145)
[2021-09-09] MEDS: METOPROLOL SUCC 50MG EXT REL TAB PO SCH (19:52)
[2021-09-09 20:32] LABS: Basophils # (auto) 0.02 K/uL (0-0.2); Basophils % (auto) 0.1 %; Eosinophils # (auto) 0.15 K/uL (0-0.5); Eosinophils % (auto) 0.7 %; Hemoglobin 9.7 g/dL (12.0-16.0); Immature Granulocytes # (auto) 0.56 K/uL (0.00-0.02); Immature Granulocytes % (auto) 2.4 %; Lymphocytes # (auto) 1.08 K/uL (1.2-3.4); Lymphocytes % (auto) 4.7 %; Mean Corpuscular Hemoglobin 31.7 pg (25-34); Mean Corpuscular Hgb Conc 33.4 g/dL (32-36); Mean Corpuscular Volume 94.8 fL (80-100); Mean Platelet Volume 10.5 fL (7.4-10.4); Monocytes # (auto) 0.93 K/uL (0.11-0.59); Neutrophils # (auto) 20.24 K/uL (1.4-6.5); Neutrophils % (auto) 88.1 %; Platelet Count 197 K/uL (130-400); RDW Coefficient of Variation 16.2 % (11.5-14.5); RDW Standard Deviation 55.8 fL (36.4-46.3); Red Blood Count 3.06 M/uL (4.2-5.4); White Blood Count 22.98 K/uL (4.8-10.8)
[2021-09-09] MEDS ORDERED: levETIRAcetam 500 MG TAB PO SCH (21:00)
[2021-09-09] MEDS ORDERED: GABAPENTIN 300 MG CAP PO SCH (21:00)
[2021-09-09] MEDS ORDERED: FAMOTIDINE 10 MG TABLET PO SCH (21:00)
[2021-09-09] MEDS ORDERED: FUROSEMIDE 40 MG TAB PO SCH (21:00)
[2021-09-09] MEDS: levETIRAcetam 500 MG in 0.9 % SODIUM CHLORIDE 100 ML IV SCH (22:18)
[2021-09-09] MEDS: FAMOTIDINE 20 MG in SYRINGE 3 ML IV SCH (22:18)
[2021-09-10] MEDS: DOXYCYCLINE HYCLATE 100 MG in DEXTROSE 5% 100 ML IV SCH ×2 (01:03→11:48)
[2021-09-10] MEDS ORDERED: PIPERACILL/TAZOBAC CONSULT ACTIVE PRN (01:43)
[2021-09-10] MEDS ORDERED: PIPERACILLIN/TAZOBACTAM 3.375 GM in DEXTROSE 5% 100 ML IV ONE (01:43)
--- NOTE | 2021-09-10 01:50 | Communication Note ---
Date of Service: September 10, [address] abd/pelv consistent w/ acute diverticulitis. changing ceftriaxone 1g daily to Zosyn. Continue doxycycline for atypical pulmonary coverage. r epleting K and mg statrad Preliminary Findings Only - See Final Report For Complete Findings CT ABDOMEN & PELVIS Without Contrast: Comparison: CT abdomen and pelvis 06/21/21. Acute diverticulitis of the sigmoid colon. No free air or abscess. No bowel obstruction. Appendix not identified on today's exam. Lingular consolidation may represent atelectasis or pneumonia. Small bilateral pleural effusions, increased from prior. Cholecystectomy. Liver, spleen, pancreas are unremarkable. 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 Nonobstructing kidney stones. No hydronephrosis. Atherosclerosis without aortic aneruysm. No free air or significant free fluid. Catheter in the urinary bladder. Normal uterus. Marked anasarca, increased from prior. Right total hip arthroplasty. Stable chronic compression fractures at T11 and L1. No acute osseous findings. Radiologist: Shamika Márquez MD. Study ready at 22:11 and initial results transmitted at 22:55 Results also transmitted to [address] [place] [address] ([id number]) @[id number] (Fax)
--- NOTE | 2021-09-10 06:46 | Electrocardiogram Report ---
Test Reason : Blood Pressure : / mmHG Vent. Rate : 088 BPM Atrial Rate : 277 BPM P-R Int : 000 ms QRS Dur : 124 ms QT Int : 386 ms P-R-T Axes : 000 030 -67 degrees QTc Int : 467 ms Atrial fibrillation with premature ventricular or aberrantly conducted complexes Right bundle branch block Possible Lateral infarct (cited on or before 23-JUN-2021) T wave abnormality, consider inferior ischemia Abnormal ECG When compared with ECG of 20-JUL-2021 15:15, T wave inversion now evident in Inferior leads QT has shortened Confirmed by Manoj Spann ([id number]) on 09/10/2021 6:45:49 AM Referred By: [facility] Confirmed By:Manoj Spann
[2021-09-10] MEDS: FOLIC ACID 1 MG TAB PO SCH (08:09)
[2021-09-10] MEDS: CLOPIDOGREL BISULFATE 75 MG TAB PO SCH (08:09)
[2021-09-10] MEDS: MULTI VIT W/MINERALS LIQUID 15 ML UDP PO SCH (08:10)
[2021-09-10] MEDS: ISOSORBIDE MONO EXTENDED REL 60 MG TABCR PO SCH (08:10)
[2021-09-10] MEDS: METOPROLOL SUCC 50MG EXT REL TAB PO SCH ×2 (08:10→20:58)
[2021-09-10] MEDS: POTASSIUM CHLORIDE CRTAB 20 MEQ TABCR PO SCH (08:11)
--- NOTE | 2021-09-10 08:30 | CT Scan Report ---
ABDOMEN AND PELVIS CT WITHOUT CONTRAST CT DOSE: 414.32 mGy.cm HISTORY: Elevated WBC, lower quadrant pain?diverticultitis TECHNIQUE: Multiaxial CT images of the abdomen and pelvis were performed without contrast. A dose lo wering technique was utilized adhering to the principles of ALARA. COMPARISON STUDY: Abdomen and pelvis CT 06/21/2021. FINDINGS: Old compression deformities at T11 and L1 remain unchanged. There is an old nondisplaced fr acture at the distal sacrum. Poststernotomy changes again noted. Old, healed bilateral anterior rib f ractures. There is a right total hip arthroplasty. Small bilateral pleural effusions. Partially visua lized consolidation within the left lower lobe which measures 3.5 cm and is new from the prior study. This favors round atelectasis or pneumonia. The heart remains enlarged. Dense mitral annulus calcifi cations and a few calcifications within the left ventricle remain unchanged. Postoperative changes at the gastroesophageal junction with a small hiatus hernia. Findings suggest a prior gastrectomy. No p neumoperitoneum. No pneumatosis. Trace pneumobilia has improved. Prior cholecystectomy. The unenhance d spleen is unremarkable. Mild thickening of the bilateral adrenal glands, unchanged. Stable exophyti c 1.5 cm cystic lesion at the pancreatic tail. There are few punctate bilateral renal calculi as well as multiple renal vascular calcifications. Mild bilateral perinephric edema. Trace perihepatic ascit es. There is a 2 mm stone within the proximal left ureter on image 187. However, no hydronephrosis. S evere body wall edema is noted. There is a Plascencia catheter within the bladder. This likely accounts fo r the gas within the bladder lumen. The bilateral adnexa are unremarkable. Multiple colonic diverticu la. There is diffuse moderate thickening of the distal descending colon and sigmoid colon with keagan lonic fat stranding/edema. The long segment of bowel wall thickening favors a colitis over acute dive rticulitis. Calcified uterine fibroids are noted. No retroperitoneal lymphadenopathy. Calcified plaqu e within the normal caliber abdominal aorta. Anastomotic suture material within the right mid small b owel. IMPRESSION: 1. Moderate bowel wall thickening involving the distal descending colon and sigmoid colon with associ ated pericolonic fat stranding/edema. The long segment of colonic wall thickening favors a nonspecifi c colitis. An acute diverticulitis could also have a similar appearance. 2. A 2 mm nonobstructing stone within the proximal left ureter. No hydronephrosis. 3. Severe body wall edema. 4. Small bilateral pleural effusions. 5. Focal round consolidation within the left lower lobe which is new from the prior study. This favor s round atelectasis. A pneumonia could also a similar appearance. 6. Trace ascites. 7. Additional findings as described above. ACT 112: Negative or not required by law. Electronically signed by: Richard Fletcher M.D. 09/10/2021 8:28 AM
[2021-09-10 08:36] LABS: Hemoglobin 9.5 g/dL (12.0-16.0); Mean Corpuscular Hemoglobin 32.1 pg (25-34); Mean Corpuscular Hgb Conc 33.9 g/dL (32-36); Mean Corpuscular Volume 94.6 fL (80-100); Mean Platelet Volume 10.5 fL (7.4-10.4); Platelet Count 215 K/uL (130-400); RDW Coefficient of Variation 16.5 % (11.5-14.5); RDW Standard Deviation 56.7 fL (36.4-46.3); Red Blood Count 2.96 M/uL (4.2-5.4); White Blood Count 20.01 K/uL (4.8-10.8)
[2021-09-10] MEDS: PIPERACILLIN/TAZOBACTAM 3.375 GM in DEXTROSE 5% 100 ML IV SCH ×3 (08:41→23:46)
[2021-09-10] MEDS: levETIRAcetam 500 MG in 0.9 % SODIUM CHLORIDE 100 ML IV SCH ×2 (08:41→20:58)
[2021-09-10] MEDS: prednisoLONE acetate 1% OP SUSP 5 ML BTL OPR SCH (08:42)
[2021-09-10] MEDS ORDERED: CALCITRIOL 0.25 MCG CAPSULE PO SCH (09:00)
[2021-09-10] MEDS ORDERED: LOPERAMIDE HCL 2 MG CAP PO SCH (09:00)
[2021-09-10 09:07] LABS: Echinocytes 1+; Eosinophils # (auto) 0.01 K/uL (0-0.5); Immature Granulocytes # (auto) 0.43 K/uL (0.00-0.02); Immature Granulocytes % (auto) 2.1 %; Lymphocytes # (auto) 0.84 K/uL (1.2-3.4); Lymphocytes % (auto) 4.2 %; Monocytes # (auto) 0.79 K/uL (0.11-0.59); Monocytes % (auto) 3.9 %; Neutrophils # (auto) 17.94 K/uL (1.4-6.5); Neutrophils % (auto) 89.8 %
[2021-09-10] MEDS: POTASSIUM CHLORIDE / WTR 10 MEQ/100 ML PLCT IV SCH ×2 (09:15→10:12)
[2021-09-10 09:19] LABS: Albumin Globulin Ratio 0.8 (0.9-2); BUN Creatinine Ratio 51.5 (10-20); Bilirubin,Total 0.4 mg/dl (0.2-1.0); Calcium 7.4 mg/dl (8.5-10.1); Creatinine Clr Calc Pharmacy 37.1 ml/min; Est GFR (African American) 63.5 ml/min; Est GFR (Non-African American) 54.8 ml/min; Globulin 2.4 gm/dl (2.5-4.0); Phosphorus 3.1 mg/dl (2.5-4.9); Potassium 3.4 mmol/L (3.5-5.1); Total Protein 4.4 gm/dl (6.0-8.3)
[2021-09-10] MEDS: MAGNESIUM SULFATE / D5W 1 GM/100 ML BAG IV SCH ×2 (09:24→11:25)
--- NOTE | 2021-09-10 11:38 | Hospitalist Progress Note ---
Date of Service September 10, 2021 Assessment & Plan (1) Acute diverticulitis: Plan: NPO IV Zosyn (started last night once CT results came back) Can likely increase diet to clears tonight Unclear if this vs. UTI vs. pneumonia driving her procalcitonin and WBC (2) Pneumonia: Plan: - WBC 24.5, procalcitonin 12.57. CRP 19.93. ESR 25. - Patient reportedly without symptoms, however CXR demonstrates what appears to be a pneumonia at the left lower lung bases. - Treated empirically in the ED with Zosyn and doxycycline; continue this - Blood cultures negative at 24 hours. Suspect diverticulitis more likely driving her acute presentation given lack of O2 requirement or respiratory distress (3) Hypoglycemia: Plan: - Initially lethargic with BGMs 48, 58 at facility. 33 in our ED. Received D50 x3 in ED and D10 drip started, held as sugar increased to 200-300 range. - BGS ACHS. - At home, receives 6 units of Novolin in AM and PM with SSI starting with BGMs > 200. - Per records from [facility], patient's sugars have been erratic from 70s- 400s, BGM at HS last night 452, 94 at 0700 this AM. - She was admitted on 07/26 for similar presentation. At that time, had been worked up for adrenal insufficiency and started on prednisone 20 mg BID since 07/23, suspect current hypoglycemia may be more related to infection. (4) UTI (urinary tract infection): Plan: - WBC 24.5, UA with nitrite, leuk esterase, >30 WBCs, bacteria. - Will already be on ceftriaxone for pneumonia, which will cover pathogens likely causing UTI. - Plascencia catheter in place upon arrival to ED from facility. - Urine culture pending. (5) Hypokalemia: Plan: K 3.4 today, K ride 10 meq x2 given. Repeat BMP in AM (6) Hypomagnesemia: Plan: -1.6 on admission, repeat 2.0 after IV replacement given (7) CAD (coronary artery disease): Plan: -S/P PCI, CABG -Continue statin, metoprolol, plavix, isosorbide. (8) HFrEF (heart failure with reduced ejection fraction): Plan: -Hold Lasix given NPO status, low sodium diet, daily weight, I&Os. -She has edema in b/l upper and lower extremities. (9) Atrial flutter: Plan: -Previously a fib, reportedly has been a flutter s/p cardioversion in August 2020. -Continue Xarelto, metoprolol, digoxin. (10) Mitral regurgitation: Plan: -Per most recent cardiology note, is not severe, continue to monitor. (11) Anemia: Plan: -Hgb stable at 9.5. -History of gastric bypass surgery ~20 years ago. Receives monthly B12 injections. -Continue to trend on AM labs. (12) CKD (chronic kidney disease) stage 3, GFR 30-59 ml/min: Plan: -BUN 55, Cr 1.16, CrCl 28.7. -Avoid nephrotoxic agents, renally dose medications as able. (13) Weakness: Plan: -Had extensive evaluation for this on last admission, including for adrenal insufficiency, see below. -ESR/CRP not elevated then, both elevated today, although in setting of infection. Neuro consulted last admission: * --> MRI Brain: no acute findings, no intracranial mass/pathologic enhancement. 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 No associated cord signal abnormality.. Moderate central canal stenosis at C3-C4 and C5-C6, as described above.Multilevel neural foraminal stenosis. Normal cervical cord signal and caliber. No fx * Muscle Bx completed on 07/26 (14) Temporal lobe epilepsy: Plan: -Continue on keppra - questionable diagnosis per daughter. (15) Idiopathic polyneuropathy: Plan: -Holding gabapentin in setting of excessive lethargy (16) Adrenal insufficiency: Plan: -Worked up for this on last admission d/t hypoglycemia, weakness, fatigue: -Failed cosyntropin stim test.Baseline cortisol was 15, but she had NO rise in cortisol level with 1mcg cosyntropin x 1. -started prednisone 20mg BID 07/23 and has appt with Nanette SLOAN later this month. -Suspect that her hypoglycemia today is more likely due to infection. Will hold prednisone for now, can add on hydrocortisone for BP support should she require it. Normotensive now. -Random cortisol today: 57.36 (17) Intrahepatic cholangiocarcinoma: Plan: -Unclear history of intrahepatic cholangiocarcinoma; per patient on last admission, this "resolved without treatment"; LFTs wnl. 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 Plan: -Admit to med/surg w/ telemetry. -SCDs, Xarelto for DVT ppx. -DNR/DNI. Admission and Anticipated Discharge Date Admission Date: September 09, 2021 Subjective Main concern is pain around her perineum. Orientated to year and self but not place. Repeats the year when I ask for month or day of the week. Otherwise no acute concerns or questions. She reports having a colonoscopy last summer. Multiple episodes of acute diverticulitis in the past. Updated her daughter at bedside. She reports her mother is much more tired than usual which is to be expected given her current infection. Review of Systems Review of Systems: All systems reviewed & are unremarkable except as noted in Subjective Physical Exam Constitutional: WD/WN, vitals as above Eyes: + anicteric sclerae; normal pupil size ENMT: external ear and nose normal, oropharynx normal Respiratory: normal respiratory effort, lungs clear to auscultation Cardiovascular: Rate/Rhythm: regular rate and regular rhythm Extremities: + edema (generalized 1+ arms, legs and abdomen) Gastrointestinal (Abdomen): Inspection/Auscultation: normal bowel sounds Percussion/Palpation: + abdomen tender (LLQ without guarding or rebound tenderness) and abdomen soft; no guarding and abdomen not rigid Skin: + ulcer (multiple skin tears on both legs (see pictures from wound care)) Neurologic: moves all extremities and awake; not confused Psychiatric: Orientation: alert, oriented to person and oriented to time (year only); + not oriented to place Affect: + flat affect Results & Data Results & Data ([facility]) Vital Signs (Past 12 Hours) Vital Signs Temp Pulse Pulse Resp BP Pulse Ox 09/10/21 11:19 36.3 C L 71 18 103/50 L 96 09/10/21 07:42 36.3 C L 72 16 108/68 96 09/10/21 07:19 84 09/10/21 03:17 36.6 C 96 H 16 117/68 95 PG Care Time/CCT Total # of Minutes Spent Total Time Spent with Patient: Total time spent is greater than 50% in coordination of care (as documented) at patient's floor/unit and/or counseling patient: Coding Level of Care Code 70680 Subseq Hosp Care Lvl 3 Diagnoses Hypoglycemia E16.2 Pneumonia J18.9 UTI (urinary tract infection) N39.0 Hypokalemia E87.6 Hypomagnesemia E83.42 CAD (coronary artery disease) I25.10 Associated angina: without angina Coronary Disease-Associated Artery/Lesion type: [place] artery [place] vs. 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 transplanted heart: [place] heart Qualified Code(s): I25.10 - Atherosclerotic heart disease of [place] coronary artery without angina pectoris (2) Anemia Anemia type: unspecified type Qualified Code(s): D64.9 - Anemia, unspecified
[2021-09-10] MEDS: CALCITRIOL 0.25 MCG CAPSULE PO SCH (15:20)
[2021-09-10] MEDS: RIVAROXABAN 15 MG TAB PO SCH (15:21)
[2021-09-10] MEDS: ACETAMINOPHEN 1,000 MG/100 ML VIAL IV SCH (18:36)
[2021-09-10] MEDS: FAMOTIDINE 20 MG in SYRINGE 3 ML IV SCH (20:57)
[2021-09-11] MEDS: ACETAMINOPHEN 1,000 MG/100 ML VIAL IV SCH ×3 (01:11→18:43)
[2021-09-11] MEDS: DOXYCYCLINE HYCLATE 100 MG in DEXTROSE 5% 100 ML IV SCH (01:40)
[2021-09-11] MEDS: PIPERACILLIN/TAZOBACTAM 3.375 GM in DEXTROSE 5% 100 ML IV SCH ×2 (08:19→15:46)
[2021-09-11] MEDS: levETIRAcetam 500 MG in 0.9 % SODIUM CHLORIDE 100 ML IV SCH (08:19)
[2021-09-11 09:16] LABS: Albumin Globulin Ratio 0.9 (0.9-2); BUN Creatinine Ratio 44.1 (10-20); Bilirubin,Total 0.4 mg/dl (0.2-1.0); Calcium 7.4 mg/dl (8.5-10.1); Creatinine Clr Calc Pharmacy 35.8 ml/min; Est GFR (African American) 66.8 ml/min; Est GFR (Non-African American) 57.6 ml/min; Globulin 2.2 gm/dl (2.5-4.0); Potassium 3.4 mmol/L (3.5-5.1); Total Protein 4.2 gm/dl (6.0-8.3)
[2021-09-11] MEDS: CLOPIDOGREL BISULFATE 75 MG TAB PO SCH (09:31)
[2021-09-11] MEDS: POTASSIUM CHLORIDE CRTAB 20 MEQ TABCR PO SCH (09:31)
[2021-09-11] MEDS: METOPROLOL SUCC 50MG EXT REL TAB PO SCH ×2 (09:31→20:45)
[2021-09-11] MEDS: MULTI VIT W/MINERALS LIQUID 15 ML UDP PO SCH (09:31)
[2021-09-11] MEDS: FOLIC ACID 1 MG TAB PO SCH (09:31)
[2021-09-11] MEDS: ISOSORBIDE MONO EXTENDED REL 60 MG TABCR PO SCH (09:31)
[2021-09-11] MEDS: prednisoLONE acetate 1% OP SUSP 5 ML BTL OPR SCH (09:32)
[2021-09-11 11:49] LABS: Hematocrit (blood only) 29.5 % (37-47); Hemoglobin 9.8 g/dL (12.0-16.0); Mean Corpuscular Hemoglobin 31.6 pg (25-34); Mean Corpuscular Hgb Conc 33.2 g/dL (32-36); Mean Corpuscular Volume 95.2 fL (80-100); Mean Platelet Volume 10.4 fL (7.4-10.4); Nucleated RBC # (auto) 0.06 K/uL (0-0); Nucleated RBC % (auto) 0.3 %; Platelet Count 183 K/uL (130-400); RDW Coefficient of Variation 16.5 % (11.5-14.5); RDW Standard Deviation 57.2 fL (36.4-46.3)
[2021-09-11 12:13] LABS: Basophils # (auto) 0.02 K/uL (0-0.2); Basophils % (auto) 0.1 %; Echinocytes 1+; Eosinophils # (auto) 0.05 K/uL (0-0.5); Eosinophils % (auto) 0.2 %; Immature Granulocytes # (auto) 0.12 K/uL (0.00-0.02); Immature Granulocytes % (auto) 0.5 %; Lymphocytes # (auto) 1.03 K/uL (1.2-3.4); Lymphocytes % (auto) 4.3 %; Monocytes # (auto) 0.69 K/uL (0.11-0.59); Monocytes % (auto) 2.9 %; Neutrophils # (auto) 21.79 K/uL (1.4-6.5)
[2021-09-11] MEDS ORDERED: fentaNYL citrate 100 MCG/2 ML VIAL ONE (12:47)
--- NOTE | 2021-09-11 12:53 | Hospitalist Progress Note ---
Date of Service September 11, 2021 Assessment & Plan (1) Ureterolithiasis: Plan: Given worsening WBC, although patient appears more awake today she also appears to be more confused and refusing medications Difficult to rule out 2mm stone contributing towards worsening WBC and infected although no hydronephrosis present Discussed with Dr Martinez and planning on ureteral stent today (NPO until this procedure) although repeat CT does not definitively show ureterolithiasis there is artifact from her hip present (2) UTI (urinary tract infection): Plan: - WBC 24.5, UA with nitrite, leuk esterase, >30 WBCs, bacteria. - Plascencia catheter in place upon arrival to ED from facility. - Urine culture with Hafnia Alvei and Burkholderia - sensitive to Levaquin therefore started on this today in addition to Zosyn. Doxycycline d/c as no need for double atypical pneumonia coverage. (3) Pneumonia: Plan: Questionable diagnosis - WBC 24.5, procalcitonin 12.57. CRP 19.93. ESR 25. - Patient reportedly without symptoms, however CXR demonstrates what appears to be a pneumonia at the left lower lung bases. - Continue IV Zosyn. Doxycycline switched for Levaquin as above. - Blood cultures negative at 48 hours. (4) Acute diverticulitis: Plan: NPO, repeat CT today without diverticulititis noted therefore questionable diagnosis Continue IV Zosyn Unclear diverticultitis vs. UTI vs. pneumonia driving her procalcitonin and WBC, given WBC increasing and no diverticultitis seen on repeat CT presumably this is her UTI vs. PNA (5) Hypoglycemia: Plan: - Initially lethargic with BGMs 48, 58 at facility. 33 in our ED. Received D50 x3 in ED and D10 drip started, held as sugar increased to 200-300 range. - BGS ACHS. - At home, receives 6 units of Novolin in AM and PM with SSI starting with BGMs > 200. - Per records from [facility], patient's sugars have been erratic from 70s- 400s, BGM at HS last night 452, 94 at 0700 this AM. - She was admitted on 07/26 for similar presentation. At that time, had been w orked up for adrenal insufficiency and started on prednisone 20 mg BID since 07/23, suspect current hypoglycemia may be more related to infection. (6) Hypokalemia: Plan: Repeat daily and replace IV as needed as patient not taking PO meds Repeat BMP in AM (7) Hypomagnesemia: Plan: -1.6 on admission, repeat 2.0 after IV replacement given. Repeat level in AM. (8) CAD (coronary artery disease): Plan: -S/P PCI, CABG -Continue metoprolol, plavix, isosorbide. (9) HFrEF (heart failure with reduced ejection fraction): Plan: -She has edema in b/l upper and lower extremities. -Resume Lasix today given worsening edema. Start Lasix 40mg IV. (10) Atrial flutter: Plan: -Previously a fib, reportedly has been a flutter s/p cardioversion in August 2020. -Continue Xarelto, metoprolol, digoxin. (11) Mitral regurgitation: Plan: -Per most recent cardiology note, is not severe, continue to monitor. (12) Anemia: Plan: -Hgb stable at 9.5. -History of gastric bypass surgery ~20 years ago. Receives monthly B12 injections. -Continue to trend on AM labs. (13) CKD (chronic kidney disease) stage 3, GFR 30-59 ml/min: Plan: -BUN 55, Cr 1.16, CrCl 28.7. -Avoid nephrotoxic agents, renally dose medications as able. (14) Weakness: Plan: -Had extensive evaluation for this on last admission, including for adrenal insufficiency, see below. Prednisone held since admission given current infection and BP stable. -ESR/CRP not elevated then, both elevated today, although in setting of infection. Neuro consulted last admission: * --> MRI Brain: no acute findings, no intracranial mass/pathologic enhancement. 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 No associated cord signal abnormality.. Moderate central canal stenosis at C3-C4 and C5-C6, as described above.Multilevel neural foraminal stenosis. Normal cervical cord signal and caliber. No fx * Muscle Bx completed on 07/26 (15) Temporal lobe epilepsy: Plan: -Continue on keppra - questionable diagnosis per [id number]. Reportedly not taking at [facility] therefore we will stop further doses of this in case contributing towards altered mental state. (16) Idiopathic polyneuropathy: Plan: -Holding gabapentin in setting of excessive lethargy (17) Adrenal insufficiency: Plan: -Worked up for this on last admission d/t hypoglycemia, weakness, fatigue: -Failed cosyntropin stim test.Baseline cortisol was 15, but she had NO rise in cortisol level with 1mcg cosyntropin x 1. -started prednisone 20mg BID 07/23 and has appt with Nanette SLOAN later this month. -Suspect that her hypoglycemia today is more likely due to infection. Will hold prednisone for now, can add on hydrocortisone for BP support should she require it. Normotensive now. 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 (19) Leukocytosis: Plan: -Admit to med/surg w/ telemetry. -SCDs, Xarelto for DVT ppx. -DNR/DNI. Admission and Anticipated Discharge Date Admission Date: September 09, 2021 Subjective Patient appears more alert today although also more argumentative. She tells me that I cannot help her and she has pain all over but pinpoint where it is the worst. Updated her son over the phone. Review of Systems Review of Systems: Unobtainable due to cognitive status Physical Exam Constitutional: WD/WN, vitals as above Eyes: + anicteric sclerae; normal pupil size ENMT: external ear and nose normal, oropharynx normal Respiratory: normal respiratory effort, lungs clear to auscultation Cardiovascular: Rate/Rhythm: regular rate and regular rhythm Extremities: + edema (generalized 2+ arms, legs and abdomen) Gastrointestinal (Abdomen): Inspection/Auscultation: normal bowel sounds Percussion/Palpation: + abdomen tender (LLQ without guarding or rebound tenderness) and abdomen soft; no guarding and abdomen not rigid Skin: + ulcer (multiple skin tears on both legs (see pictures from wound care)) Neurologic: moves all extremities and awake; not confused Psychiatric: Orientation: alert, oriented to person and oriented to time (year only); + not oriented to place Affect: + flat affect Genitourinary: no CVA tenderness Results & Data Results & Data ([facility]) Vital Signs (Past 12 Hours) Vital Signs Temp Pulse Pulse Resp BP BP Pulse Ox 09/11/21 11:13 36.4 C L 68 16 116/62 100 09/11/21 08:00 61 09/11/21 07:27 36.4 C L 79 18 135/83 97 09/11/21 03:51 36.1 C L 78 16 120/63 97 PG Care Time/CCT Total # of Minutes Spent Total Time Spent with Patient: Total time spent is greater than 50% in coordination of care (as documented) at patient's floor/unit and/or counseling patient: Coding Level of Care Code 26858 Subseq Hosp Care Lvl 3 Diagnoses Acute diverticulitis K57.92 Pneumonia J18.9 Hypoglycemia E16.2 UTI (urinary tract infection) N39.0 Hypokalemia E87.6 Hypomagnesemia E83.42 CAD (coronary artery disease) I25.10 Associated angina: without angina Coronary Disease-Associated Artery/Lesion type: [place] artery [place] vs. 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 transplanted heart: [place] heart Qualified Code(s): I25.10 - Atherosclerotic heart disease of [place] coronary artery without angina pectoris (2) Anemia Anemia type: unspecified type Qualified Code(s): D64.9 - Anemia, unspecified
[2021-09-11] MEDS ORDERED: levoFLOXacin/D5W 750 MG/150 ML BAG IV SCH (13:00)
--- NOTE | 2021-09-11 13:45 | Urology Consultation ---
Date of Consultation September 11, 2021 Assessment & Plan (1) Ureterolithiasis: (2) Altered mental status: (3) Acute UTI: I discussed her nephrolithiasis with the patient and her son. We discussed that at 2 mm, the stone is likely to pass spontaneously. However, the concern in her case is the coexisting suspicion for urinary tract infection. We discussed that an obstructed infection can cause sepsis and lead to . In this setting I would recommend placement of a ureteral stent to ensure maximal drainage of the kidney. We discussed what this procedure entails as well as the risks and anticipated benefits. We reviewed that the most recent CT scan does not show the stone in the same place, and I cannot confidently say whether it is still in the ureter or whether it has passed. I think the safe thing to do would be to place a stent to remove obstructed UTI from the differential diagnosis. Once she has cleared from this hospitalization, we can discuss next steps for definitive stone management. She and her son both expressed understanding and agreed to proceed with cystoscopy and left ureteral stent placement. History of Present Illness Attending Physician: Marcus Domignuez MD History of Present Illness This is an 80-year-old female with history of CKD, chronic Plascencia catheter, recurrent UTIs, Who was admitted to the hospital on 09/09/2021 with altered mental status, fatigue and lethargy. Initially in the ED vital signs were stable, however she had a notable leukocytosis, hypokalemia, hyperglycemia. Urinalysis was concerning for infection, although as noted, she has a chronic Plascencia catheter. CT scans were performed raising concern for possible pneumonia and acute diverticulitis. Note was initially made of a 2 mm stone in the proximal left ureter, however there was no hydronephrosis and it was not thought to be obstructing. She was admitted and started on empiric antibiotics for UTI and pneumonia. She had been improving somewhat, however on 09/11/21 she was becoming less cooperative, refusing to eat or drink, and was noted to have an increasing leukocytosis (WBC 23.7) creatinine has been stable (0.93).. Urology was c onsulted for evaluation of her ureterolithiasis. Due to her mental status, she is not able to provide much meaningful history. She denies any recent flank pain or dysuria. She reports that overall she has very little sensation of her bladder, hence the Plascencia catheter. A repeat CT scan was performed on 09/11/2021, which I independently reviewed. I did not visualize the 2 mm stone in the position where it was on 09/09. Due to significant inflammation in the lower abdomen and pelvis, as well as due to artifact from the prosthetic right hip, it is challenging to follow the course of the ureter. I cannot say for sure whether the stone has passed or not. There is no hydronephrosis of either kidney. There is calcification of the renal vasculature bilaterally. Allergies Allergy/AdvReac Type Severity Reaction Status Date / Time banana Allergy Unknown HIVES/ITCHI Verified 09/09/21 15:34 NG Iodinated Contrast Media Allergy Unknown "CONTRAST"- Verified 09/09/21 15:34 HIVES/ITCHI NG povidone-iodine Allergy Unknown "drops for Verified 09/09/21 15:34 [From Betadine] eye before injection" - fox/vision trouble soap [From Betadine] Allergy Unknown "drops for Verified 09/09/21 15:34 eye before injection" - fox/vision trouble Home Medications Medication Instructions Recorded Confirmed Type vitamins A,C,K-nojy-crhlap 7,160 1 tab PO BIDM 07/03/19 09/09/21 History unit-113 mg-100 unit tablet (PreserVision AREDS) gabapentin 300 mg capsule 900 mg PO HS 90 Days #270 cap 08/26/20 09/09/21 Rx nitroglycerin 0.4 mg sublingual 0.4 mg SUBLINGUAL UD PRN #25 tab 01/04/21 09/09/21 Rx tablet clopidogrel 75 mg tablet 75 mg PO QAM #30 tab 01/09/21 09/09/21 Rx prednisolone acetate 1 % eye 1 drp OPR QAM ml 03/24/21 09/09/21 History drops,suspension cyanocobalamin (vitamin B-12) 1,000 mcg IM MONTHLY 05/15/21 09/09/21 History 1,000 mcg/mL injection solution isosorbide mononitrate 120 mg 240 mg PO QAM tab 06/18/21 09/09/21 History tablet,extended release 24 hr digoxin 125 mcg (0.125 mg) tablet 125 mcg PO Q2D 07/06/21 09/09/21 History epinephrine 0.3 mg/0.3 mL 0.3 mg SUBCUT UD PRN 07/06/21 09/09/21 History injection, auto-injector rivaroxaban 15 mg tablet (Xarelto) 15 mg PO .AFTER DINNER 07/06/21 09/09/21 History metoprolol succinate 200 mg See Rx Instructions .ROUTE 07/15/21 09/09/21 Rx tablet,extended release 24 hr .COMPLEX #135 tab famotidine 10 mg tablet (Acid 10 mg PO BID #60 tab 08/05/21 09/09/21 Rx Salon Designer (famotidine)) folic acid 1 mg tablet 1 mg PO QAM #30 tab 08/05/21 09/09/21 Rx levetiracetam 500 mg tablet 500 mg PO AMHS 08/27/21 09/09/21 History ubrogepant 100 mg tablet (Ubrelvy) 100 mg PO .EVERY 24 HOURS PRN tab 08/27/21 09/09/21 History acetaminophen 325 mg tablet 650 mg PO Q4 PRN MDD 3g 09/09/21 09/09/21 History benzocaine 20 %-menthol 0.5 % 1 spray TOPICAL TID 09/09/21 09/09/21 History topical aerosol (Dermoplast (with menthol)) calcitriol 0.25 mcg capsule 0.25 mcg PO Q OTHER DAY 09/09/21 09/09/21 History dextrose 15 gram/59 mL oral liquid 4 g PO .EVERY 15 MINUTES PRN 09/09/21 09/09/21 History (Dex4 Glucose) docusate sodium 100 mg capsule 100 mg PO .EVERY 24 HOURS PRN 09/09/21 09/09/21 History (Colace) furosemide 40 mg tablet (Lasix) 40 mg PO BID 09/09/21 09/09/21 History insulin aspart U-100 100 unit/mL 6 unit SUBCUT AMHS 09/09/21 09/09/21 History (3 mL) subcutaneous pen loperamide 2 mg tablet (Imodium 2 mg PO Q4H PRN 09/09/21 09/09/21 History A-D) loperamide 2 mg tablet (Imodium 2 mg PO QAM 09/09/21 09/09/21 History A-D) polyethylene glycol 3350 17 17 g PO .EVERY 24 HOURS PRN 09/09/21 09/09/21 History gram/dose oral powder (Miralax) potassium chloride 20 mEq 20 meq PO DAILY 09/09/21 09/09/21 History tablet,extended release(part/cryst) prednisone 20 mg tablet 20 mg PO AMHS 09/09/21 09/09/21 History Patient History Medical History Benign essential tremor CAD (coronary artery disease) CABG x 1 vessel 2015 Cerebellar infarct Follows with neuro= "Prior cerebellar stroke without residual deficits" - continue ASA and statin Chronic diastolic congestive heart failure Chronic hypoxemic respiratory failure Chronic low back pain Copper deficiency Corneal dystrophy CVA (cerebral vascular accident) NO RESIDUAL AT AGE 50 Diabetes Endothelial corneal dystrophy Family history of reaction to anesthesia SISTER - HIVES, N/V GERD (gastroesophageal reflux disease) History of cardioversion 1978 & AUGUST 2020 History of [place] (myocardial infarction) 1978 History of vertigo Hyperlipemia Hypertension Hypokalemia Intrahepatic cholangiocarcinoma Liver cancer DX AUGUST 2020 - [facility] Liver mass DX JULY 2020 Macular degeneration Mitral regurgitation Mild to moderate per 2019 ECHO Multiple pulmonary nodules determined by computed tomography of lung Osteoporosis Osteoporosis with fracture fx ribs from falling, NO CURRENT FRACTURES Pancreatic tumor had surgery removal of head Paroxysmal atrial fibrillation and flutter--On Xarelto , DX 2018 - HX CARDIOVERSION AUGUST 2020 Peripheral neuropathy Pulmonary hypertension PASP 30-40mmHg Pulmonary nodule monitored yearly Sleep apnea Spondylosis Temporal lobe epilepsy Follows with neuro Started on Keppra in Spring 2019 with no further events since that time Continue Keppra per 08/10/20 neuro note Weakness Surgical History Gastric bypass status for obesity H/O abdominoplasty WITH NECK REPAIRED WELL H/O cataract extraction right and left H/O ovarian cystectomy H/O thumb surgery left and right H/O Whipple procedure History of appendectomy History of breast biopsy several both sides History of corneal transplant right eye History of ear surgery 1967, LEFT History of liver biopsy History of resection of pancreas head of pancreas removed 2009 History of total right hip replacement History of transmyocardial revascularization Hx of cardiac cath 2013, AUGUST 2015, october 2020, november 2020 Hx of cholecystectomy S/P CABG (coronary artery bypass graft) 2015 S/P cholecystectomy S/P tonsillectomy and adenoidectomy S/P trigger finger release left thumb x3, one surgery on right Status post right knee replacement Family History Sister Breast cancer 2 sisters Diabetes 2 sisters Heart disease Cancer 2 sisters Father , age 64 of an [place] Myocardial infarction Heart disease Hypertension Brother Myocardial infarction Diabetes Heart disease 2 brothers Hypertension Mother , age 92 of a stroke Non-Hodgkin lymphoma Stroke Cancer Grandfather Diabetes Heart disease Denies family history of Ovarian cancer Prostate cancer Colorectal cancer Social History Smoking Status: Former smoker Age Started Using Tobacco: 16; Age Quit Using Tobacco: 50; packs per day: 1.5; Cigarettes Per Day: 30; Second Hand Exposure: No; Do You Dip or Chew Tobacco: No; Tobacco Cessation Education Requested by Patient: No Hx Alcohol Use: Yes Alcohol type: wine Hx Substance Use: No Preferred Language: [place] Islander Communication Ability: Effective Visual Impairment: Limited Hearing Ability: Normal Alumni Secretary Required: No Beliefs That Will Affect Care: None marital status: / Current Living Situation: Personal Care Facility Current Living Situation Comment: [facility] current occupational status: retired Other Information That Helps Us Care for You: No Feels Safe at Home: Yes Safety Concerns: Feels Safe At This Time Childhood Exposure to Second-Hand Smoke: No caffeine: No during the past year weight has: decreased > 10 lbs Dental Care, Regularly: Yes Physical Activity Frequency: Does not Exercise Seatbelt Use: always Sunscreen Use: Yes Do you think of yourself as: straight/heterosexual Gender Identity: Female Assistive Devices: Walker Review of Systems Review of Systems: 14 point review of systems negative except for otherwise indicated. Physical Exam Constitutional: Resting in bed, NAD Eyes: + anicteric sclerae; pupils not irregular Respiratory: Breathing comfortably on room air, no audible wheezing Cardiovascular: well perfused Gastrointestinal (Abdomen): Inspection/Auscultation: abdomen not distended Musculoskeletal: Extremities: extremities normal to inspection Skin: normal turgor; no rashes and no lesions Neurologic: moves all extremities and awake Psychiatric: Orientation: alert (Responds appropriately to questions.) Results & Data ([facility]) Vital Signs (Past 12 Hours) Vital Signs Temp Pulse Pulse Resp BP BP Pulse Ox 09/11/21 11:13 36.4 C L 68 16 116/62 100 09/11/21 08:00 61 09/11/21 07:27 36.4 C L 79 18 135/83 97 09/11/21 03:51 36.1 C L 78 16 120/63 97 PG Care Time/CCT Total # of Minutes Spent Total Time Spent with Patient: Total time spent is greater than 50% in coordination of care (as documented) at patient's floor/unit and/or counseling patient: Coding Level of Care Code 64221 Initial Inpt Care Lvl 2 Diagnoses Ureterolithiasis N20.1 Altered mental status R40.0 Altered mental status type: somnolence Acute UTI N39.0 (1) Altered mental status Altered mental status type: somnolence Qualified Code(s): R40.0 - Somnolence
--- NOTE | 2021-09-11 14:22 | Anesthesiology Consultation ---
Date of Service September 11, 2021 Assessment & Plan (1) Encounter for pre-operative examination: Chart Review Chart Review: Acceptable Risk for Surgery and Patient NOT seen in Pre Admission Testing Consults Requested none History Surgery Operation Date: 09/11/21 15:00 Proposed Procedures p Cystoscopy Retrograde(Left) - Anton Martinez MD Height/Weight Height: 5 ft 1 in Weight: 57.1 kg Allergies Allergy/AdvReac Type Severity Reaction Status Date / Time banana Allergy Unknown HIVES/ITCHI Verified 09/09/21 15:34 NG Iodinated Contrast Media Allergy Unknown "CONTRAST"- Verified 09/09/21 15:34 HIVES/ITCHI NG povidone-iodine Allergy Unknown "drops for Verified 09/09/21 15:34 [From Betadine] eye before injection" - fox/vision trouble soap [From Betadine] Allergy Unknown "drops for Verified 09/09/21 15:34 eye before injection" - fox/vision trouble Medications Home Medications Medication Instructions Recorded Confirmed Last Taken vitamins A,C,I-hfaa-pxyxls 7,160 1 tab PO BIDM 07/03/19 09/09/21 07/03/21 unit-113 mg-100 unit tablet (PreserVision AREDS) gabapentin 300 mg capsule 900 mg PO HS 90 Days #270 cap 08/26/20 09/09/21 07/03/21 nitroglycerin 0.4 mg sublingual 0.4 mg SUBLINGUAL UD PRN #25 tab 01/04/21 09/09/21 03/13/21 tablet clopidogrel 75 mg tablet 75 mg PO QAM #30 tab 01/09/21 09/09/21 07/03/21 prednisolone acetate 1 % eye 1 drp OPR QAM ml 03/24/21 09/09/21 07/03/21 drops,suspension cyanocobalamin (vitamin B-12) 1,000 mcg IM MONTHLY 05/15/21 09/09/21 Unknown 1,000 mcg/mL injection solution isosorbide mononitrate 120 mg 240 mg PO QAM tab 06/18/21 09/09/21 07/03/21 tablet,extended release 24 hr digoxin 125 mcg (0.125 mg) tablet 125 mcg PO Q2D 07/06/21 09/09/21 07/05/21 epinephrine 0.3 mg/0.3 mL 0.3 mg SUBCUT UD PRN 07/06/21 09/09/21 Unknown injection, auto-injector rivaroxaban 15 mg tablet (Xarelto) 15 mg PO .AFTER DINNER 07/06/21 09/09/21 07/03/21 metoprolol succinate 200 mg See Rx Instructions .ROUTE 07/15/21 09/09/21 Unknown tablet,extended release 24 hr .COMPLEX #135 tab famotidine 10 mg tablet (Acid 10 mg PO BID #60 tab 08/05/21 09/09/21 Unknown Steeping Press Operator (famotidine)) folic acid 1 mg tablet 1 mg PO QAM #30 tab 08/05/21 09/09/21 Unknown levetiracetam 500 mg tablet 500 mg PO AMHS 08/27/21 09/09/21 Unknown ubrogepant 100 mg tablet (Ubrelvy) 100 mg PO .EVERY 24 HOURS PRN tab 08/27/21 09/09/21 Unknown acetaminophen 325 mg tablet 650 mg PO Q4 PRN MDD 3g 09/09/21 09/09/21 Unknown benzocaine 20 %-menthol 0.5 % 1 spray TOPICAL TID 09/09/21 09/09/21 Unknown topical aerosol (Dermoplast (with menthol)) calcitriol 0.25 mcg capsule 0.25 mcg PO Q OTHER DAY 09/09/21 09/09/21 Unknown dextrose 15 gram/59 mL oral liquid 4 g PO .EVERY 15 MINUTES PRN 09/09/21 09/09/21 Unknown (Dex4 Glucose) docusate sodium 100 mg capsule 100 mg PO .EVERY 24 HOURS PRN 09/09/21 09/09/21 Unknown (Colace) furosemide 40 mg tablet (Lasix) 40 mg PO BID 09/09/21 09/09/21 Unknown insulin aspart U-100 100 unit/mL 6 unit SUBCUT AMHS 09/09/21 09/09/21 Unknown (3 mL) subcutaneous pen loperamide 2 mg tablet (Imodium 2 mg PO Q4H PRN 09/09/21 09/09/21 Unknown A-D) loperamide 2 mg tablet (Imodium 2 mg PO QAM 09/09/21 09/09/21 Unknown A-D) polyethylene glycol 3350 17 17 g PO .EVERY 24 HOURS PRN 09/09/21 09/09/21 Unknown gram/dose oral powder (Miralax) potassium chloride 20 mEq 20 meq PO DAILY 09/09/21 09/09/21 Unknown tablet,extended release(part/cryst) prednisone 20 mg tablet 20 mg PO AMHS 09/09/21 09/09/21 Unknown Active Medications Generic Name Dose Route Start Last Admin Trade Name Freq PRN Reason Stop Dose Admin Calcitriol 0.25 mcg 09/09/21 17:27 09/10/21 15:20 Calcitriol 0.25 Mcg Capsule PO 10/09/21 17:26 Not Given Q24H HOMAR Clopidogrel Bisulfate 75 mg 09/10/21 09:00 09/11/21 09:31 Clopidogrel Bisulfate 75 Mg Tab PO 10/10/21 08:59 Not Given QAM HOMAR Digoxin 0.125 mg 09/09/21 17:27 09/09/21 17:39 Digoxin 0.125 Mg Tab PO 10/09/21 17:26 Not Given Q2D HOMAR Folic Acid 1 mg 09/10/21 09:00 09/11/21 09:31 Folic Acid 1 Mg Tab PO 10/10/21 08:59 Not Given QAM HOMAR Famotidine 20 mg/ Syringe 5 mls @ 2.5 mls/min 09/09/21 21:00 09/10/21 20:57 IV 10/09/21 20:59 2.5 mls/min QPM HOMAR Administration Piperacillin Sod/Tazobactam 115 mls @ 28.75 mls/hr 09/10/21 08:00 09/11/21 12:20 Sod 3.375 gm/ Dextrose IV 09/20/21 07:59 Infused Q8H HOMAR Infusion Protocol Acetaminophen 1,000 mg in 100 mls @ 400 mls/hr 09/10/21 18:00 09/11/21 10:02 Ofirmev IV 09/13/21 17:44 Infused Q8H HOMAR Infusion Levofloxacin/Dextrose 750 mg in 150 mls @ 100 mls/hr 09/11/21 13:00 09/11/21 13:26 Levaquin/D5w IV 09/21/21 12:59 100 mls/hr Q48H HOMAR Administration Protocol Isosorbide Mononitrate 240 mg 09/10/21 09:00 09/11/21 09:31 Isosorbide Mason Extended Rel 60 Mg Tabcr PO 10/10/21 08:59 Not Given QAM HOMAR Metoprolol Succinate 200 mg 09/10/21 09:00 09/11/21 09:31 Metoprolol Succ 50mg Ext Rel Tab PO 10/10/21 08:59 Not Given DAILY HOMAR Metoprolol Succinate 100 mg 09/09/21 21:00 09/10/21 20:58 Metoprolol Succ 50mg Ext Rel Tab PO 10/09/21 20:59 Not Given HS HOMAR Multivitamins/Minerals 15 ml 09/10/21 09:00 09/11/21 09:31 Multi Vit W/Minerals Liquid 15 Ml Udp PO 10/10/21 08:59 Not Given DAILY HOMAR Potassium Chloride 20 meq 09/10/21 09:00 09/11/21 09:31 Potassium Chloride Crtab 20 Meq Tabcr PO 10/10/21 08:59 Not Given DAILY HOMAR Prednisolone Acetate 1 drops 09/10/21 09:00 09/11/21 09:32 Prednisolone Acetate 1% Op Susp 5 Ml Btl OPR 10/10/21 08:59 Not Given QAM COUNTS INCLUDE 234 BEDS AT [facility] Rivaroxaban 15 mg 09/10/21 16:30 09/10/21 15:21 Rivaroxaban 15 Mg Tab PO 10/09/21 17:26 Not Given QDD HOMAR Past Medical History Medical History Benign essential tremor CAD (coronary artery disease) CABG x 1 vessel 2015 Cerebellar infarct Follows with neuro= "Prior cerebellar stroke without residual deficits" - continue ASA and statin Chronic diastolic congestive heart failure Chronic hypoxemic respiratory failure Chronic low back pain Copper deficiency Corneal dystrophy CVA (cerebral vascular accident) NO RESIDUAL AT AGE 50 Diabetes Endothelial corneal dystrophy Family history of reaction to anesthesia SISTER - HIVES, N/V GERD (gastroesophageal reflux disease) History of cardioversion 1978 & AUGUST 2020 History of [place] (myocardial infarction) 1978 History of vertigo Hyperlipemia Hypertension Hypokalemia Intrahepatic cholangiocarcinoma Liver cancer DX AUGUST 2020 - [facility] Liver mass DX JULY 2020 Macular degeneration Mitral regurgitation Mild to moderate per 2019 ECHO Multiple pulmonary nodules determined by computed tomography of lung Osteoporosis Osteoporosis with fracture fx ribs from falling, NO CURRENT FRACTURES Pancreatic tumor had surgery removal of head Paroxysmal atrial fibrillation and flutter--On Xarelto , DX 2018 - HX CARDIOVERSION AUGUST 2020 Peripheral neuropathy Pulmonary hypertension PASP 30-40mmHg Pulmonary nodule monitored yearly Sleep apnea Spondylosis Temporal lobe epilepsy Follows with neuro Started on Keppra in Spring 2019 with no further events since that time Continue Keppra per 08/10/20 neuro note Weakness Past Family History Family History Sister Breast cancer 2 sisters Diabetes 2 sisters Heart disease Cancer 2 sisters Father , age 64 of an [place] Myocardial infarction Heart disease Hypertension Brother Myocardial infarction Diabetes Heart disease 2 brothers Hypertension Mother , age 92 of a stroke Non-Hodgkin lymphoma Stroke Cancer Grandfather Diabetes Heart disease Denies family history of Ovarian cancer Prostate cancer Colorectal cancer Past Surgical History Surgical History Gastric bypass status for obesity H/O abdominoplasty WITH NECK REPAIRED WELL H/O cataract extraction right and left H/O ovarian cystectomy H/O thumb surgery left and right H/O Whipple procedure History of appendectomy History of breast biopsy several both sides History of corneal transplant right eye History of ear surgery 1967, LEFT History of liver biopsy History of resection of pancreas head of pancreas removed 2009 History of total right hip replacement History of transmyocardial revascularization Hx of cardiac cath 2013, AUGUST 2015, october 2020, november 2020 Hx of cholecystectomy S/P CABG (coronary artery bypass graft) 2016 S/P cholecystectomy S/P tonsillectomy and adenoidectomy S/P trigger finger release left thumb x3, one surgery on right Status post right knee replacement Social History Smoking Status: Former smoker tobacco type: cigarettes Smoking cigarettes per day: 30 Do You Dip or Chew Tobacco: No Hx Alcohol Use: Yes Alcohol type: wine alcohol intake frequency: other Alcohol Intake Frequency Comment: rarely Hx Substance Use: No substance use type: does not use Physical Exam Vital Signs Last Vital Signs Temp 97.5 F L 09/11/21 11:13 Pulse 68 09/11/21 11:13 Resp 16 09/11/21 11:13 BP 116/62 09/11/21 11:13 Pulse Ox 100 09/11/21 11:13 Testing Laboratory Results 09/11/21 11:35 09/11/21 08:37 PT 11.8 Seconds (9.0-12.0) 09/09/21 14:53 INR 1.1 (0.9-1.1) 09/09/21 14:53 APTT 34.3 Seconds (21.0-31.0) H 09/09/21 14:53 Urine Color Yellow 09/09/21 11:02 Urine Appearance Clear (Clear) 09/09/21 11:02 Urine pH 5.5 (4.5-7.5) 09/09/21 11:02 Ur Specific [place] 1.020 (1.000-1.030) 09/09/21 11:02 Urine Protein 1+ (Negative) H 09/09/21 11:02 Urine Glucose (UA) 1+ (Negative) H 09/09/21 11:02 Urine Ketones Negative (Negative) 09/09/21 11:02 Urine Nitrite Positive (Negative) A 09/09/21 11:02 Ur Leukocyte Esterase 2+ (Negative) H 09/09/21 11:02 Urine RBC 5-10 /hpf (0-4) H 09/09/21 11:02 Urine WBC >30 /hpf (0-5) H 09/09/21 11:02 Ur Epithelial Cells 0-5 /lpf (0-5) 09/09/21 11:02 09/09/21 11:33 Aerobic Blood Culture - Preliminary Blood No growth in Aerobic bottle after 48 hours. Anaerobic Blood Culture - Preliminary No growth in Anaerobic bottle after 48 hours. 09/09/21 11:33 Aerobic Blood Culture - Preliminary Blood No growth in Aerobic bottle after 48 hours. Anaerobic Blood Culture - Preliminary No growth in Anaerobic bottle after 48 hours. 09/09/21 11:02 Urine Culture - Preliminary Urine,Clean Catch Burkholderia cepacia complex Hafnia alvei 09/11/21 09/11/21 11:44 07:50 POC Glucose 145 H 174 H Electrocardiogram Date: 09/09/21 Findings: + AFIB @ and + RBBB with PVCs, Chest X-Ray Date: 09/09/21 Findings: + infiltrate (L mid/lower infiltrate)
--- NOTE | 2021-09-11 14:28 | CT Scan Report ---
CT abd pelvis wo con CLINICAL HISTORY: Increasing white blood cell count. Evaluate for obstructing left ureteral calculus versus diverticulitis COMPARISON STUDY: 09/09/2021 CT DOSE: 266.35 mGy.cm TECHNIQUE: Standard CT of the Abdomen and Pelvis was performed without IV contrast. The patient did not receive oral contrast. A dose lowering technique was utilized adhering to the principles of DIAMOND Finch FINDINGS: Lung base: There are now moderate-sized bilateral pleural effusions with compressive atelectasis/abraham apse at both lung bases. The heart is again enlarged status post previous cardiothoracic surgery. The re is again evidence for mitral valve replacement. Abdominal cavity: There is no evidence for abdominal mass, adenopathy or ascites. There is again evid ence for anasarca. Liver: The liver is homogeneous in attenuation on these limited noncontrast images..There has been in terval development of pneumobilia. Spleen: The spleen is homogeneous in attenuation on these limited noncontrast images. Pancreas: The pancreas is homogeneous in attenuation on these limited noncontrast images. Gall Bladder: Surgical clips are present. Adrenal glands: The adrenal glands are normal in size and attenuation on these limited noncontrast im ages. Kidneys: The kidneys are homogeneous in attenuation on these limited noncontrast images. There is no evidence for ureteral calculus or hydronephrosis of the current study. Nonobstructing renal calculi a re present. Vascular calcifications are also seen bilaterally. Bowel: The bowel loops are normally placed within the abdomen and pelvis without evidence for dilatat ion or obstruction. There is no evidence for mass lesion. There is again evidence for diverticulosis throughout the descending and sigmoid colon. There is imaging artifact of the distal sigmoid colon re lated to right hip replacement. No definite acute diverticulitis is seen. Decreased. Colonic edema is present. There are no inflammatory changes present. There is no evidence for free air. Bladder: The bladder is obscured by imaging artifact. There is a Plascencia catheter in place. : There is an enlarged fibroid uterus. Vasculature: There is no evidence for focal aneurysmal dilatation of the abdominal aorta. Atheroscler otic calcification is present. Osseous structures: There is no acute osseous pathology. Degenerative changes are seen within the spi ne addition to the patient's right hip replacement. IMPRESSION: 1. There is no evidence for ureteral calculus or hydronephrosis bilaterally on the current study. Non obstructing renal calculi are seen bilaterally. 2. Diffuse diverticulosis of the descending and sigmoid colon. There are no pericolonic inflammatory changes or evidence for acute diverticulitis. 3. There has been interval development of pneumobilia. 4. There is again anasarca. 5. There are now moderate sized bilateral pleural effusions with compressive atelectasis at both lung bases. ACT 112: Negative or not required by law. Electronically signed by: Matias Oreilly M.D. 09/11/2021 2:26 PM
[2021-09-11] MEDS ORDERED: FUROSEMIDE 40 MG/4 ML VIAL IV STA (15:24)
[2021-09-11] MEDS: POTASSIUM CHLORIDE / WTR 10 MEQ/100 ML PLCT IV SCH ×2 (15:46→18:43)
[2021-09-11] MEDS ORDERED: ePHEDrine sulfate 50 MG/ML AMP IV PRN (16:43)
[2021-09-11] MEDS ORDERED: ONDANSETRON INJ 2 MG/ML 2 ML VIAL IV PRN (16:43)
[2021-09-11] MEDS ORDERED: ATROPINE SULFATE 0.1 MG/ML 10ML SYR IV PRN (16:43)
[2021-09-11] MEDS ORDERED: fentaNYL citrate 100 MCG/2 ML VIAL IV PRN (16:43)
[2021-09-11] MEDS ORDERED: DIATRIZOATE MEGLUMINE 30% 100ML VIAL INSTIL ONE (17:27)
--- NOTE | 2021-09-11 17:27 | Operative Report ---
PG Post Operative Report Pre & Post Diagnosis Operation Date: 09/11/21 15:00 Pre-Op Diagnosis: Ureterolithiasis Post-Op Diagnosis: Ureterolithiasis I identified the patient and participated in the time-out.: Yes Procedure Operation Date: 09/11/21 15:00 Actual Procedures p Cystoscopy, left retrograde pyelogram, left Ureteral Stent Placement(Left), Plascencia catheter exchange- Anton Martinez MD Surgeon Anton Martinez MD Crusher None Estimated Blood Loss 0 Findings See Below Successful left ureteral stent placement Specimens None Drains 6 Iranian by 24 cm double-J ureteral stent in the left ureter 16 Iranian Plascencia catheter per urethra with 10 mL of balloon Anesthesia Type MAC Complications none Disposition Disposition: Recovery Room Indications This is an 80-year-old female, with history of chronic indwelling catheter, recently hospitalized with altered mental status CT scan from 09/09 demonstrated a ureteral stone but no hydronephrosis. At that time she was not thought to be obstructed. Due to worsening leukocytosis and mental status on 09/11, urology was consulted for further evaluation. Repeat CT scan did not demonstrate the ureteral stone in the same position, however passage could not be completely verified due to artifact from hip and significant inflammation in the pelvis. She is being brought to the OR for left ureteral stent placement to ensure maximal drainage of the left kidney in the setting of suspected urinary tract infection. Description of Procedure The patient was identified in the holding area and informed consent was confirmed. I spoke with her son who provided consent given her altered mental status. They were marked on the left side, then were taken to the operating room where general anesthesia was initiated. She was placed in the dorsal lithotomy position with all pressure points appropriately padded. She was prepped and draped in the usual sterile fashion and a preoperative timeout was performed. A well-lubricated cystoscope was inserted per urethra and panendoscopy was performed. The bladder was of normal size. There were no tumors appreciated. There was some debris and stone which had likely formed around her indwelling Plascencia catheter. Ureteral orifices were in orthotopic position. The left ureteral orifice was identified and cannulated with a 5 Iranian open- ended catheter. A sensor wire was advanced up to the kidney under fluoroscopic guidance. At the point where there was a curl, the open-ended catheter was advanced to this area and the wire was removed. 2 mL of Cystografin was injected to confirm position within the renal pelvis. The sensor wire was replaced, then over the wire, a 6 Iranian x 24 centimeter double-J ureteral stent was advanced. When the wire was removed, the proximal curl was visualized in the kidney with x-ray, and the distal curl visualized in the bladder with the cystoscope. Contrast was seen draining through the stent. A 16 Iranian Plascencia catheter was then replaced in the bladder and the balloon was inflated with 10 mL normal saline. The catheter was attached to gravity drainage. The patient was then awakened from anesthesia and was brought to the PACU in stable condition. I attest to the content of the Intraoperative Record and any orders documented therein. Any exceptions are noted below.
[2021-09-11] MEDS ORDERED: PROPOFOL IV EMULSION 10 MG/ML 20 ML VIAL IV ONE (17:34)
--- NOTE | 2021-09-11 17:37 | Anesthesiology Progress Note ---
Date of Service September 11, 2021 Anesthesia Post Procedure Vital Signs Vital Signs: Temp Pulse Pulse Resp BP BP Pulse Ox 09/11/21 15:17 97.5 F L 67 18 131/87 98 09/11/21 15:14 73 09/11/21 11:13 97.5 F L 68 16 116/62 100 09/11/21 08:00 61 09/11/21 07:27 97.5 F L 79 18 135/83 97 09/11/21 03:51 97.0 F L 78 16 120/63 97 09/10/21 23:19 97.5 F L 69 16 131/69 94 09/10/21 23:08 76 09/10/21 21:05 121/67 09/10/21 19:00 97.3 F L 73 16 86/47 L 97 Pain Intensity Bilateral Abdomen: Pain Intensity: 10 Buttock: Pain Intensity: 5 Transfer of Care Handoff Completed per policy Notes Mental Status: alert / awake / arousable and participated in evaluation Patient Amnestic to Procedure: Yes Nausea / Vomiting: adequately controlled Pain: adequately controlled Airway Patency, RR, SpO2: stable & adequate BP & HR: stable & adequate Hydration State: stable & adequate Anesthetic Complications: no major complications apparent and Pt Satisfied with anesthetic care
--- NOTE | 2021-09-11 17:50 | Fluoroscopy Report ---
FL retrograde includes kub CLINICAL HISTORY: CYSTO/STENT COMPARISON STUDY: None FLUOROSCOPY TIME: 8 seconds. FLUOROSCOPIC IMAGES: 5 FINDINGS: There was catheterization of the left ureter with filling of the collecting systems with co ntrast. A double-J ureteral stent was placed. IMPRESSION: Status post placement of double-J ureteral stent. ACT 112: Negative or not required by law. Electronically signed by: Matias Oreilly M.D. 09/11/2021 5:48 PM
[2021-09-11] MEDS: CALCITRIOL 0.25 MCG CAPSULE PO SCH (20:45)
[2021-09-11] MEDS: RIVAROXABAN 15 MG TAB PO SCH (20:45)
[2021-09-11] MEDS: DIGOXIN 0.125 MG TAB PO SCH (20:45)
[2021-09-11] MEDS: FAMOTIDINE 20 MG in SYRINGE 3 ML IV SCH (20:53)
[2021-09-11] MEDS: MoRPHine SULFATE 2 MG/ML CARP IV PRN (20:55)
[2021-09-11] MEDS ORDERED: levETIRAcetam 250 MG in 0.9 % SODIUM CHLORIDE 100 ML IV SCH (21:00)
[2021-09-12] MEDS: PIPERACILLIN/TAZOBACTAM 3.375 GM in DEXTROSE 5% 100 ML IV SCH ×3 (00:18→16:54)
[2021-09-12] MEDS: ACETAMINOPHEN 1,000 MG/100 ML VIAL IV SCH ×3 (02:11→17:00)
[2021-09-12 06:58] LABS: Hemoglobin 8.8 g/dL (12.0-16.0); Mean Corpuscular Hemoglobin 32.5 pg (25-34); Mean Corpuscular Hgb Conc 33.8 g/dL (32-36); Mean Corpuscular Volume 95.9 fL (80-100); Mean Platelet Volume 10.2 fL (7.4-10.4); Nucleated RBC # (auto) 0.04 K/uL (0-0); Nucleated RBC % (auto) 0.3 %; Platelet Count 165 K/uL (130-400); RDW Coefficient of Variation 16.5 % (11.5-14.5); RDW Standard Deviation 57.2 fL (36.4-46.3); Red Blood Count 2.71 M/uL (4.2-5.4); White Blood Count 13.34 K/uL (4.8-10.8)
[2021-09-12 07:22] LABS: Albumin Globulin Ratio 0.8 (0.9-2); Albumin Level 1.8 gm/dl (3.4-5.0); BUN Creatinine Ratio 39.6 (10-20); Bilirubin,Total 0.4 mg/dl (0.2-1.0); Calcium 7.4 mg/dl (8.5-10.1); Est GFR (African American) 64.3 ml/min; Est GFR (Non-African American) 55.5 ml/min; Globulin 2.2 gm/dl (2.5-4.0); Potassium 3.5 mmol/L (3.5-5.1)
[2021-09-12 07:29] LABS: Basophils # (auto) 0.01 K/uL (0-0.2); Basophils % (auto) 0.1 %; Eosinophils # (auto) 0.06 K/uL (0-0.5); Eosinophils % (auto) 0.4 %; Immature Granulocytes # (auto) 0.11 K/uL (0.00-0.02); Immature Granulocytes % (auto) 0.8 %; Lymphocytes # (auto) 0.62 K/uL (1.2-3.4); Lymphocytes % (auto) 4.6 %; Monocytes # (auto) 0.41 K/uL (0.11-0.59); Monocytes % (auto) 3.1 %; Neutrophils # (auto) 12.13 K/uL (1.4-6.5)
[2021-09-12] MEDS: FOLIC ACID 1 MG TAB PO SCH (08:57)
[2021-09-12] MEDS: ISOSORBIDE MONO EXTENDED REL 60 MG TABCR PO SCH (08:57)
[2021-09-12] MEDS: FUROSEMIDE 40 MG/4 ML VIAL IV SCH (08:57)
[2021-09-12] MEDS: CLOPIDOGREL BISULFATE 75 MG TAB PO SCH (08:57)
[2021-09-12] MEDS: METOPROLOL SUCC 50MG EXT REL TAB PO SCH ×2 (08:57→21:14)
[2021-09-12] MEDS: MULTI VIT W/MINERALS LIQUID 15 ML UDP PO SCH (08:58)
[2021-09-12] MEDS: prednisoLONE acetate 1% OP SUSP 5 ML BTL OPR SCH (08:58)
[2021-09-12] MEDS: POTASSIUM CHLORIDE CRTAB 20 MEQ TABCR PO SCH (08:59)
--- NOTE | 2021-09-12 09:26 | Urology Progress Note ---
Date of Service September 12, 2021 Assessment & Plan (1) Ureterolithiasis: (2) Leukocytosis: (3) Acute UTI: Plan: Overall, patient appears to be significantly improved. Left ureteral stent is in good position. The left kidney is draining well down to the bladder. Plascencia catheter remains in place, and should remain due to urinary retention. Reasonable to continue antibiotics. For now, she requires no further urologic intervention while inpatient. We will arrange outpatient follow-up to discuss whether she requires ureteroscopy or whether to remove her stent. Urology will sign off for now, please call with any questions or concerns. Admission and Anticipated Discharge Date Admission Date: September 09, 2021 Subjective Feeling well this morning, no fevers or chills Denies any flank pain, denies any sense of urinary urgency No issues with catheter overnight. Review of Systems Constitutional: No fevers or chills Genitourinary: Tolerating catheter and stent well Physical Exam Constitutional: Resting in bed, NAD Respiratory: Breathing comfortably on room air Results & Data ([facility]) Vital Signs (Past 12 Hours) Vital Signs Temp Pulse Pulse Pulse Resp BP BP 09/12/21 07:15 64 09/12/21 07:13 36.5 C 58 L 18 139/78 09/12/21 03:59 35.9 C L 68 18 115/73 09/12/21 00:07 36.3 C L 77 18 119/69 09/11/21 23:00 69 09/11/21 22:35 36.8 C 68 20 130/80 Pulse Ox 09/12/21 07:15 09/12/21 07:13 99 09/12/21 03:59 99 09/12/21 00:07 98 09/11/21 23:00 09/11/21 22:35 98 PG Care Time/CCT Total # of Minutes Spent Total Time Spent with Patient: Total time spent is greater than 50% in coordination of care (as documented) at patient's floor/unit and/or counseling patient: Coding Level of Care Code 47119 Subseq Hosp Care Lvl 2 Diagnoses Ureterolithiasis N20.1 Leukocytosis D72.829 Acute UTI N39.0
[2021-09-12] MEDS: POTASSIUM CHLORIDE / WTR 10 MEQ/100 ML PLCT IV SCH ×2 (09:37→11:03)
[2021-09-12] MEDS: MoRPHine SULFATE 2 MG/ML CARP IV PRN ×2 (13:18→23:58)
--- NOTE | 2021-09-12 14:47 | Hospitalist Progress Note ---
Date of Service September 12, 2021 Assessment & Plan (1) Ureterolithiasis: Plan: WBC and clinically patient appears much improved today following ureteral stent yesterday therefore suspect this was driving her acute illness. s/p ureteral stent placed 09/[address] Martinez (2) UTI (urinary tract infection): Plan: - WBC 24.5, UA with nitrite, leuk esterase, >30 WBCs, bacteria. - Plascencia catheter in place upon arrival to ED from facility. - Urine culture with Hafnia Alvei and initially Burkholderia - now changed identification to pseudomonas therefore Levaquin discontinued. (3) Pneumonia: Plan: Questionable diagnosis - WBC 24.5, procalcitonin 12.57. CRP 19.93. ESR 25. - Patient reportedly without symptoms, however CXR demonstrates what appears to be a pneumonia at the left lower lung bases. - Continue IV Zosyn. - Blood cultures negative at 48 hours. (4) Acute diverticulitis: Plan: Questionable diagnosis as not reported on repeat CT and onyl improved after ureterolithiasis dealt with (5) Hypoglycemia: Plan: - Initially lethargic with BGMs 48, 58 at facility. 33 in our ED. Received D50 x3 in ED and D10 drip started, held as sugar increased to 200-300 range. - BGS ACHS. - At home, receives 6 units of Novolin in AM and PM with SSI starting with BGMs > 200. - Per records from [facility], patient's sugars have been erratic from 70s- 400s, BGM at HS last night 452, 94 at 0700 this AM. - She was admitted on 07/26 for similar presentation. At that time, had been worked up for adrenal insufficiency and started on prednisone 20 mg BID since 07/23, suspect current hypoglycemia may be more related to infection. (6) Hypokalemia: Plan: Repeat daily and replace IV as needed as patient not taking PO meds Repeat BMP in AM (7) Hypomagnesemia: Plan: -1.6 on admission, repeat 2.0 after IV replacement given. (8) CAD (coronary artery disease): Plan: -S/P PCI, CABG -Continue metoprolol, plavix, isosorbide. (9) HFrEF (heart failure with reduced ejection fraction): Plan: -She has edema in b/l upper and lower extremities. -Resume Lasix 40mg IV daily (10) Atrial flutter: Plan: -Previously a fib, reportedly has been a flutter s/p cardioversion in August 2020. -Continue Xarelto, metoprolol, digoxin. (11) Mitral regurgitation: Plan: -Per most recent cardiology note, is not severe, continue to monitor. (12) Anemia: Plan: -Hgb stable -History of gastric bypass surgery ~20 years ago. Receives monthly B12 injections. -Continue to trend on AM labs. (13) CKD (chronic kidney disease) stage 3, GFR 30-59 ml/min: Plan: -BUN 55, Cr 1.16, CrCl 28.7. -Avoid nephrotoxic agents, renally dose medications as able. (14) Weakness: Plan: -Had extensive evaluation for this on last admission, including for adrenal insufficiency, see below. Prednisone held since admission given current infection and BP stable. -ESR/CRP not elevated then, both elevated today, although in setting of infection. Neuro consulted last admission: * --> MRI Brain: no acute findings, no intracranial mass/pathologic enhancement. 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 No associated cord signal abnormality.. Moderate central canal stenosis at C3-C4 and C5-C6, as described above.Multilevel neural foraminal stenosis. Normal cervical cord signal and caliber. 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 (16) Idiopathic polyneuropathy: Plan: -Holding gabapentin in setting of excessive lethargy (17) Adrenal insufficiency: Plan: -Worked up for this on last admission d/t hypoglycemia, weakness, fatigue: -Failed cosyntropin stim test.Baseline cortisol was 15, but she had NO rise in cortisol level with 1mcg cosyntropin x 1. -started prednisone 20mg BID 07/23 and has appt with Nanette SLOAN later this month. -Suspect that her hypoglycemia today is more likely due to infection. Will hold prednisone for now, can add on hydrocortisone for BP support should she require it. Normotensive now. 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 (19) Leukocytosis: (20) Metabolic encephalopathy: Plan: Secondary to infection as above. Much improved today. Plan: -Admit to med/surg w/ telemetry. -SCDs, Xarelto for DVT ppx. -DNR/DNI. Admission and Anticipated Discharge Date Admission Date: September 09, 2021 Subjective Patient appears much improved today. More alert, taking her medications and reports more of an appetite. Notes her abdominal pain has also improved. Review of Systems Review of Systems: All systems reviewed & are unremarkable except as noted in Subjective Physical Exam Constitutional: well developed; + not well nourished and no acute distress Eyes: + anicteric sclerae; normal pupil size Respiratory: normal respiratory effort, lungs clear to auscultation Cardiovascular: Rate/Rhythm: regular rate and regular rhythm Extremities: + edema (generalized 1+ arms, legs and abdomen) Gastrointestinal (Abdomen): Inspection/Auscultation: normal bowel sounds Percussion/Palpation: + abdomen tender (improved LLQ without guarding or rebound tenderness) and abdomen soft; no guarding and abdomen not rigid Neurologic: moves all extremities and awake; not confused Psychiatric: Orientation: alert, oriented to person and oriented to time (year only); + not oriented to place Affect: euthymic affect Genitourinary: no CVA tenderness Results & Data Results & Data ([facility]) Vital Signs (Past 12 Hours) Vital Signs Temp Pulse Pulse Pulse Resp BP BP 09/12/21 11:48 36.2 C L 54 L 16 130/67 09/12/21 07:15 64 09/12/21 07:13 36.5 C 58 L 18 139/78 09/12/21 03:59 35.9 C L 68 18 115/73 Pulse Ox 09/12/21 11:48 92 09/12/21 07:15 09/12/21 07:13 99 09/12/21 03:59 99 PG Care Time/CCT Total # of Minutes Spent Total Time Spent with Patient: Total time spent is greater than 50% in coordination of care (as documented) at patient's floor/unit and/or counseling patient: Coding Level of Care Code 98856 Subseq Hosp Care Lvl 3 Diagnoses Ureterolithiasis N20.1 UTI (urinary tract infection) N39.0 Pneumonia J18.9 Acute diverticulitis K57.92 Hypoglycemia E16.2 Hypokalemia E87.6 Hypomagnesemia E83.42 CAD (coronary artery disease) I25.10 Associated angina: without angina Coronary Disease-Associated Artery/Lesion type: [place] artery [place] vs. transplanted heart: [place] heart HFrEF (heart failure with reduced ejection fraction) I50.20 Atrial flutter I48.92 Mitral regurgitation I34.0 Anemia D64.9 Anemia type: unspecified type CKD (chronic kidney disease) stage 3, GFR 30-59 ml/min N18.30 Weakness R53.1 Temporal lobe epilepsy G40.109 Idiopathic polyneuropathy G60.9 Adrenal insufficiency E27.40 Intrahepatic cholangiocarcinoma C22.1 Leukocytosis D72.829 Metabolic encephalopathy G93.41 (1) CAD (coronary artery disease) Associated angina: without angina Coronary Disease-Associated Artery/Lesion type: [place] artery [place] vs. transplanted heart: [place] heart Qualified Code(s): I25.10 - Atherosclerotic heart disease of [place] coronary artery without angina pectoris (2) Anemia Anemia type: unspecified type Qualified Code(s): D64.9 - Anemia, unspecified
[2021-09-12] MEDS: CALCITRIOL 0.25 MCG CAPSULE PO SCH (16:58)
[2021-09-12] MEDS: RIVAROXABAN 15 MG TAB PO SCH (16:58)
[2021-09-12] MEDS: FAMOTIDINE 20 MG in SYRINGE 3 ML IV SCH (21:19)
[2021-09-13] MEDS: PIPERACILLIN/TAZOBACTAM 3.375 GM in DEXTROSE 5% 100 ML IV SCH ×3 (00:06→16:54)
[2021-09-13] MEDS: ACETAMINOPHEN 325 MG TAB PO PRN (02:39)
[2021-09-13] MEDS: ACETAMINOPHEN 1,000 MG/100 ML VIAL IV SCH (02:41)
[2021-09-13 07:48] LABS: Basophils # (auto) 0.01 K/uL (0-0.2); Basophils % (auto) 0.1 %; Eosinophils # (auto) 0.05 K/uL (0-0.5); Eosinophils % (auto) 0.4 %; Hematocrit (blood only) 31.7 % (37-47); Hemoglobin 10.4 g/dL (12.0-16.0); Immature Granulocytes # (auto) 0.21 K/uL (0.00-0.02); Immature Granulocytes % (auto) 1.6 %; Lymphocytes # (auto) 0.72 K/uL (1.2-3.4); Lymphocytes % (auto) 5.6 %; Mean Corpuscular Hgb Conc 32.8 g/dL (32-36); Mean Corpuscular Volume 97.5 fL (80-100); Mean Platelet Volume 11.2 fL (7.4-10.4); Monocytes # (auto) 0.59 K/uL (0.11-0.59); Monocytes % (auto) 4.6 %; Neutrophils # (auto) 11.27 K/uL (1.4-6.5); Neutrophils % (auto) 87.7 %; Platelet Count 186 K/uL (130-400); RDW Coefficient of Variation 16.5 % (11.5-14.5); RDW Standard Deviation 58.4 fL (36.4-46.3); Red Blood Count 3.25 M/uL (4.2-5.4); White Blood Count 12.85 K/uL (4.8-10.8)
[2021-09-13 08:01] LABS: Albumin Globulin Ratio 0.9 (0.9-2); Albumin Level 2.1 gm/dl (3.4-5.0); Bilirubin,Total 0.4 mg/dl (0.2-1.0); Calcium 7.7 mg/dl (8.5-10.1); Creatinine Clr Calc Pharmacy 32.3 ml/min; Est GFR (Non-African American) 50.9 ml/min; Globulin 2.4 gm/dl (2.5-4.0); Potassium 3.9 mmol/L (3.5-5.1); Total Protein 4.5 gm/dl (6.0-8.3)
[2021-09-13] MEDS: CLOPIDOGREL BISULFATE 75 MG TAB PO SCH (08:49)
[2021-09-13] MEDS: FUROSEMIDE 40 MG/4 ML VIAL IV SCH (08:49)
[2021-09-13] MEDS: METOPROLOL SUCC 50MG EXT REL TAB PO SCH ×2 (08:50→21:16)
[2021-09-13] MEDS: MULTI VIT W/MINERALS LIQUID 15 ML UDP PO SCH (08:51)
[2021-09-13] MEDS: ISOSORBIDE MONO EXTENDED REL 60 MG TABCR PO SCH (08:51)
[2021-09-13] MEDS: FOLIC ACID 1 MG TAB PO SCH (08:51)
[2021-09-13] MEDS: prednisoLONE acetate 1% OP SUSP 5 ML BTL OPR SCH (08:52)
[2021-09-13] MEDS: POTASSIUM CHLORIDE CRTAB 20 MEQ TABCR PO SCH (08:55)
[2021-09-13] MEDS: RIVAROXABAN 15 MG TAB PO SCH (16:54)
[2021-09-13] MEDS: CALCITRIOL 0.25 MCG CAPSULE PO SCH (16:54)
[2021-09-13] MEDS: DIGOXIN 0.125 MG TAB PO SCH (16:54)
--- NOTE | 2021-09-13 19:38 | Hospitalist Progress Note ---
Date of Service September 13, 2021 Assessment & Plan (1) Ureterolithiasis: Plan: WBC and clinically patient appears much improved today following ureteral stent yesterday therefore suspect this was driving her acute illness. s/p ureteral stent placed 09/[address] Martinez (2) UTI (urinary tract infection): Plan: Catheter associated UTI - WBC 24.5, UA with nitrite, leuk esterase, >30 WBCs, bacteria. - Plascencia catheter in place upon arrival to ED from facility. - Urine culture with Hafnia Alvei and pseudomonas - will switch to ciprofloxacin for 14 days total antibiotics s/p source control (ie. ureteral stent insertion) after 5 days of Zosyn for PNA/diverticulitis Rx. (3) Pneumonia: Plan: Questionable diagnosis - WBC 24.5, procalcitonin 12.57. CRP 19.93. ESR 25. - Patient reportedly without symptoms, however CXR demonstrates what appears to be a pneumonia at the left lower lung bases. - Continue IV Zosyn. - Blood cultures negative at 48 hours. (4) Acute diverticulitis: Plan: Questionable diagnosis as not reported on repeat CT and only improved after ureterolithiasis dealt with 5 days Zosyn (currently day 4) (5) Hypoglycemia: Plan: - Initially lethargic with BGMs 48, 58 at facility. 33 in our ED. Received D50 x3 in ED and D10 drip started, held as sugar increased to 200-300 range. - BGS ACHS. - At home, receives 6 units of Novolin in AM and PM with SSI starting with BGMs > 200. - Per records from [facility], patient's sugars have been erratic from 70s- 400s, BGM at HS last night 452, 94 at 0700 this AM. - She was admitted on 07/26 for similar presentation. At that time, had been worked up for adrenal insufficiency and started on prednisone 20 mg BID since 07/23, suspect current hypoglycemia may be more related to infection. d/c insulin; no hyperglycemic episodes here (6) Hypokalemia: Plan: Repeat daily. Potassium 20 meq BID Repeat BMP in AM (7) Hypomagnesemia: Plan: -1.6 on admission, repeat 2.0 after IV replacement given. (8) CAD (coronary artery disease): Plan: -S/P PCI, CABG -Continue metoprolol, plavix, isosorbide mononitrate. (9) HFrEF (heart failure with reduced ejection fraction): Plan: -She has edema in b/l upper and lower extremities. -Resume her usual lasix 40mg PO BID (10) Atrial flutter: Plan: -Previously a fib, reportedly has been a flutter s/p cardioversion in August 2020. -Continue Xarelto, metoprolol, digoxin. (11) Mitral regurgitation: Plan: -Per most recent cardiology note, is not severe, continue to monitor. (12) Anemia: Plan: -Hgb stable -History of gastric bypass surgery ~20 years ago. Receives monthly B12 injections. (13) CKD (chronic kidney disease) stage 3, GFR 30-59 ml/min: Plan: -BUN 55, Cr 1.16, CrCl 28.7. -Avoid nephrotoxic agents, renally dose medications as able. (14) Weakness: Plan: -Had extensive evaluation for this on last admission, including for adrenal insufficiency, see below. Prednisone held since admission given current infection and BP stable. -ESR/CRP not elevated then, both elevated today, although in setting of infection. Neuro consulted last admission: * --> MRI Brain: no acute findings, no intracranial mass/pathologic enhancement. 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 No associated cord signal abnormality.. Moderate central canal stenosis at C3-C4 and C5-C6, as described above.Multilevel neural foraminal stenosis. Normal cervical cord signal and caliber. 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 (16) Idiopathic polyneuropathy: Plan: -Holding gabapentin in setting of excessive lethargy (17) Adrenal insufficiency: Plan: -Worked up for this on last admission d/t hypoglycemia, weakness, fatigue: -Failed cosyntropin stim test.Baseline cortisol was 15, but she had NO rise in cortisol level with 1mcg cosyntropin x 1. -started prednisone 20mg BID 07/23 and has appt with Nanette SLOAN later this month. -Suspect that her hypoglycemia today is more likely due to infection. Will hold prednisone for now, can add on hydrocortisone for BP support should she require it. Normotensive now. 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 (19) Leukocytosis: (20) Metabolic encephalopathy: Plan: Secondary to infection as above. Much improved after ureteral stent insertion. Plan: -SCDs, Xarelto for DVT ppx. -DNR/DNI. Disposition - Stable for downgrade to med/surg, plan for 5 total days of Zosyn then switch to ciprofloxacin and will be medically stable for discharge Admission and Anticipated Discharge Date Admission Date: September 09, 2021 Subjective Appears generally confused still. Not complaining of pain. Only orientated to year. Unaware she is in hospital. Good appetite. Refusing to participate with PT/OT. Review of Systems Review of Systems: All systems reviewed & are unremarkable except as noted in Subjective Physical Exam Constitutional: well developed; + not well nourished and no acute distress Eyes: + anicteric sclerae; normal pupil size Respiratory: normal respiratory effort, lungs clear to auscultation Cardiovascular: Rate/Rhythm: regular rate and regular rhythm Extremities: + edema (generalized 1+ arms, legs and abdomen) Gastrointestinal (Abdomen): Inspection/Auscultation: normal bowel sounds Percussion/Palpation: + abdomen tender (improved LLQ without guarding or rebound tenderness) and abdomen soft; no guarding and abdomen not rigid Neurologic: moves all extremities and awake; not confused Psychiatric: Orientation: alert, oriented to person and oriented to time (year only); + not oriented to place Affect: euthymic affect Genitourinary: no CVA tenderness Results & Data Results & Data ([facility]) Vital Signs (Past 12 Hours) Vital Signs Temp Pulse Pulse Resp BP Pulse Ox 09/13/21 16:54 66 09/13/21 14:51 36.3 C L 66 20 110/69 98 09/13/21 07:36 35.7 C L 57 L 20 146/81 H 98 PG Care Time/CCT Total # of Minutes Spent Total Time Spent with Patient: Total time spent is greater than 50% in coordination of care (as documented) at patient's floor/unit and/or counseling patient: Coding Level of Care Code 64155 Subseq Hosp Care Lvl 2 Diagnoses Ureterolithiasis N20.1 UTI (urinary tract infection) N39.0 Pneumonia J18.9 Acute diverticulitis K57.92 Hypoglycemia E16.2 Hypokalemia E87.6 Hypomagnesemia E83.42 CAD (coronary artery disease) I25.10 Coronary Disease-Associated Artery/Lesion type: [place] artery [place] vs. transplanted heart: [place] heart Associated angina: without angina HFrEF (heart failure with reduced ejection fraction) I50.20 Atrial flutter I48.92 Mitral regurgitation I34.0 Anemia D64.9 Anemia type: unspecified type CKD (chronic kidney disease) stage 3, GFR 30-59 ml/min N18.30 Weakness R53.1 Temporal lobe epilepsy G40.109 Idiopathic polyneuropathy G60.9 Adrenal insufficiency E27.40 Intrahepatic cholangiocarcinoma C22.1 Leukocytosis D72.829 Metabolic encephalopathy G93.41 (1) CAD (coronary artery disease) Coronary Disease-Associated Artery/Lesion type: [place] artery [place] vs. transplanted heart: [place] heart Associated angina: without angina Qualified Code(s): I25.10 - Atherosclerotic heart disease of [place] coronary artery without angina pectoris (2) Anemia Anemia type: unspecified type Qualified Code(s): D64.9 - Anemia, unspecified
[2021-09-13] MEDS: MoRPHine SULFATE 2 MG/ML CARP IV PRN (21:19)
[2021-09-14] MEDS: PIPERACILLIN/TAZOBACTAM 3.375 GM in DEXTROSE 5% 100 ML IV SCH ×5 (00:57→23:44)
[2021-09-14] MEDS: FOLIC ACID 1 MG TAB PO SCH (07:51)
[2021-09-14] MEDS: ISOSORBIDE MONO EXTENDED REL 60 MG TABCR PO SCH (07:51)
[2021-09-14] MEDS: METOPROLOL SUCC 50MG EXT REL TAB PO SCH ×2 (07:51→21:08)
[2021-09-14] MEDS: CLOPIDOGREL BISULFATE 75 MG TAB PO SCH (07:53)
[2021-09-14] MEDS: FAMOTIDINE 10 MG TABLET PO SCH ×2 (07:54→21:08)
[2021-09-14] MEDS: prednisoLONE acetate 1% OP SUSP 5 ML BTL OPR SCH (07:55)
[2021-09-14] MEDS: MULTI VIT W/MINERALS LIQUID 15 ML UDP PO SCH (07:56)
[2021-09-14] MEDS: MoRPHine SULFATE 2 MG/ML CARP IV PRN ×3 (07:59→21:09)
[2021-09-14] MEDS: POTASSIUM CHLORIDE CRTAB 20 MEQ TABCR PO SCH (07:59)
[2021-09-14 08:37] LABS: Basophils # (auto) 0.02 K/uL (0-0.2); Basophils % (auto) 0.2 %; Eosinophils # (auto) 0.02 K/uL (0-0.5); Eosinophils % (auto) 0.2 %; Hematocrit (blood only) 32.5 % (37-47); Hemoglobin 10.9 g/dL (12.0-16.0); Immature Granulocytes # (auto) 0.35 K/uL (0.00-0.02); Immature Granulocytes % (auto) 3.3 %; Lymphocytes # (auto) 0.77 K/uL (1.2-3.4); Lymphocytes % (auto) 7.2 %; Mean Corpuscular Hemoglobin 32.2 pg (25-34); Mean Corpuscular Hgb Conc 33.5 g/dL (32-36); Mean Corpuscular Volume 96.2 fL (80-100); Mean Platelet Volume 11.1 fL (7.4-10.4); Monocytes # (auto) 0.75 K/uL (0.11-0.59); Neutrophils # (auto) 8.74 K/uL (1.4-6.5); Neutrophils % (auto) 82.1 %; Platelet Count 168 K/uL (130-400); RDW Coefficient of Variation 16.5 % (11.5-14.5); RDW Standard Deviation 57.8 fL (36.4-46.3); Red Blood Count 3.38 M/uL (4.2-5.4); White Blood Count 10.65 K/uL (4.8-10.8)
[2021-09-14 08:55] LABS: BUN Creatinine Ratio 29.7 (10-20); Calcium 7.9 mg/dl (8.5-10.1); Est GFR (African American) 53.9 ml/min; Est GFR (Non-African American) 46.5 ml/min; Potassium 3.6 mmol/L (3.5-5.1)
[2021-09-14] MEDS ORDERED: FUROSEMIDE 40 MG TAB PO SCH ×2 (09:00)
--- NOTE | 2021-09-14 09:44 | Hospitalist Progress Note ---
Date of Service September 14, 2021 Assessment & Plan (1) Ureterolithiasis: Plan: WBC and clinically patient appears much improved today following ureteral stent yesterday therefore suspect this was driving her acute illness. s/p ureteral stent placed 09/[address] Martinez (2) UTI (urinary tract infection): Plan: Catheter associated UTI - WBC 24.5, UA with nitrite, leuk esterase, >30 WBCs, bacteria. - Plascencia catheter in place upon arrival to ED from facility. - Urine culture with Hafnia Alvei and pseudomonas - will switch to ciprofloxacin for 14 days total antibiotics s/p source control (ie. ureteral stent insertion) after 5 days of Zosyn for PNA/diverticulitis Rx (tomorrow) (3) Pneumonia: Plan: Questionable diagnosis - WBC 24.5, procalcitonin 12.57. CRP 19.93. ESR 25. - Patient reportedly without symptoms, however CXR demonstrates what appears to be a pneumonia at the left lower lung bases. - Continue IV Zosyn. - Blood cultures negative at 48 hours. (4) Acute diverticulitis: Plan: Questionable diagnosis as not reported on repeat CT and only improved after ureterolithiasis dealt with 5 days Zosyn (currently day 09/30) (5) Hypoglycemia: Plan: - Initially lethargic with BGMs 48, 58 at facility. 33 in our ED. Received D50 x3 in ED and D10 drip started, held as sugar increased to 200-300 range. - BGS ACHS. - At home, receives 6 units of Novolin in AM and PM with SSI starting with BGMs > 200. - Per records from [facility], patient's sugars have been erratic from 70s- 400s, BGM at HS last night 452, 94 at 0700 this AM. - She was admitted on 07/26 for similar presentation. At that time, had been worked up for adrenal insufficiency and started on prednisone 20 mg BID since 07/23, suspect current hypoglycemia may be more related to infection. d/c insulin; no hyperglycemic episodes here (6) Hypokalemia: Plan: Repeat daily. Potassium 20 meq BID Repeat BMP in AM (7) Hypomagnesemia: Plan: -1.6 on admission, repeat 2.0 after IV replacement given. (8) CAD (coronary artery disease): Plan: -S/P PCI, CABG -Continue metoprolol, plavix, isosorbide mononitrate. (9) HFrEF (heart failure with reduced ejection fraction): Plan: -She has edema in b/l upper and lower extremities. -Resume her usual lasix 40mg PO BID (10) Atrial flutter: Plan: -Previously a fib, reportedly has been a flutter s/p cardioversion in August 2020. -Continue Xarelto, metoprolol, digoxin. (11) Mitral regurgitation: Plan: -Per most recent cardiology note, is not severe, continue to monitor. (12) Anemia: Plan: -Hgb stable -History of gastric bypass surgery ~20 years ago. Receives monthly B12 injections. (13) CKD (chronic kidney disease) stage 3, GFR 30-59 ml/min: Plan: -BUN 55, Cr 1.16, CrCl 28.7. -Avoid nephrotoxic agents, renally dose medications as able. (14) Weakness: Plan: -Had extensive evaluation for this on last admission, including for adrenal insufficiency, see below. Prednisone held since admission given current infection and BP stable. -ESR/CRP not elevated then, both elevated today, although in setting of infection. Neuro consulted last admission: * --> MRI Brain: no acute findings, no intracranial mass/pathologic enhancement. 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 No associated cord signal abnormality.. Moderate central canal stenosis at C3-C4 and C5-C6, as described above.Multilevel neural foraminal stenosis. Normal cervical cord signal and caliber. 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 (16) Idiopathic polyneuropathy: Plan: -Holding gabapentin in setting of excessive lethargy (17) Adrenal insufficiency: Plan: -Worked up for this on last admission d/t hypoglycemia, weakness, fatigue: -Failed cosyntropin stim test.Baseline cortisol was 15, but she had NO rise in cortisol level with 1mcg cosyntropin x 1. -started prednisone 20mg BID 07/23 and has appt with Nanette SLOAN later this month. -Suspect that her hypoglycemia today is more likely due to infection. Will hold prednisone for now, can add on hydrocortisone for BP support should she require it. Normotensive now. 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 (19) Leukocytosis: (20) Metabolic encephalopathy: Plan: Secondary to infection as above. Much improved after ureteral stent insertion. Plan: -SCDs, Xarelto for DVT ppx. -DNR/DNI. Disposition - Stable for downgrade to med/surg, plan for 5 total days of Zosyn then switch to ciprofloxacin and will be medically stable for discharge tomorrow Admission and Anticipated Discharge Date Admission Date: September 09, 2021 Subjective Remains generally confused. Not able to tell me if she is in any pain. Plascencia catheter in place. Review of Systems Review of Systems: All systems reviewed & are unremarkable except as noted in Subjective Physical Exam Constitutional: well developed; + not well nourished and no acute distress Eyes: + anicteric sclerae; normal pupil size ENMT: external ear and nose normal, oropharynx normal Respiratory: normal respiratory effort, lungs clear to auscultation Cardiovascular: Rate/Rhythm: regular rate and regular rhythm Extremities: + edema (generalized 1+ arms, legs and abdomen) Gastrointestinal (Abdomen): Inspection/Auscultation: normal bowel sounds Percussion/Palpation: abdomen soft; abdomen nontender, no guarding and abdomen not rigid Neurologic: moves all extremities and awake; not confused Psychiatric: Orientation: alert, oriented to person and oriented to time (year only); + not oriented to place Affect: euthymic affect Results & Data Results & Data ([facility]) Vital Signs (Past 12 Hours) Vital Signs Temp Pulse Pulse Resp BP Pulse Ox 09/14/21 08:01 36.6 C 60 20 110/50 L 100 09/13/21 23:02 36.6 C 74 18 135/76 99 PG Care Time/CCT Total # of Minutes Spent Total Time Spent with Patient: Total time spent is greater than 50% in coordination of care (as documented) at patient's floor/unit and/or counseling patient: Coding Level of Care Code 67639 Subseq Hosp Care Lvl 1 Diagnoses Ureterolithiasis N20.1 UTI (urinary tract infection) N39.0 Pneumonia J18.9 Acute diverticulitis K57.92 Hypoglycemia E16.2 Hypokalemia E87.6 Hypomagnesemia E83.42 CAD (coronary artery disease) I25.10 Associated angina: without angina Coronary Disease-Associated Artery/Lesion type: [place] artery [place] vs. transplanted heart: [place] heart HFrEF (heart failure with reduced ejection fraction) I50.20 Atrial flutter I48.92 Mitral regurgitation I34.0 Anemia D64.9 Anemia type: unspecified type CKD (chronic kidney disease) stage 3, GFR 30-59 ml/min N18.30 Weakness R53.1 Temporal lobe epilepsy G40.109 Idiopathic polyneuropathy G60.9 Adrenal insufficiency E27.40 Intrahepatic cholangiocarcinoma C22.1 Leukocytosis D72.829 Metabolic encephalopathy G93.41 (1) CAD (coronary artery disease) Associated angina: without angina Coronary Disease-Associated Artery/Lesion type: [place] artery [place] vs. transplanted heart: [place] heart Qualified Code(s): I25.10 - Atherosclerotic heart disease of [place] coronary artery without angina pectoris (2) Anemia Anemia type: unspecified type Qualified Code(s): D64.9 - Anemia, unspecified
[2021-09-14] MEDS: RIVAROXABAN 15 MG TAB PO SCH (16:08)
[2021-09-14] MEDS: CALCITRIOL 0.25 MCG CAPSULE PO SCH (16:08)
[2021-09-15] MEDS: POTASSIUM CHLORIDE CRTAB 20 MEQ TABCR PO SCH (08:40)
[2021-09-15] MEDS: CLOPIDOGREL BISULFATE 75 MG TAB PO SCH (08:40)
[2021-09-15] MEDS: ISOSORBIDE MONO EXTENDED REL 60 MG TABCR PO SCH (08:40)
[2021-09-15] MEDS: MULTI VIT W/MINERALS LIQUID 15 ML UDP PO SCH (08:40)
[2021-09-15] MEDS: FUROSEMIDE 40 MG TAB PO SCH (08:40)
[2021-09-15] MEDS: FAMOTIDINE 10 MG TABLET PO SCH ×2 (08:40→20:53)
[2021-09-15] MEDS: METOPROLOL SUCC 50MG EXT REL TAB PO SCH ×2 (08:41→20:54)
[2021-09-15] MEDS: FOLIC ACID 1 MG TAB PO SCH (08:41)
[2021-09-15] MEDS: prednisoLONE acetate 1% OP SUSP 5 ML BTL OPR SCH (08:41)
[2021-09-15] MEDS: CIPROFLOXACIN 500 MG TAB PO SCH ×2 (09:28→20:53)
[2021-09-15] MEDS: CALCITRIOL 0.25 MCG CAPSULE PO SCH (17:54)
[2021-09-15] MEDS: DIGOXIN 0.125 MG TAB PO SCH (17:54)
[2021-09-15] MEDS: RIVAROXABAN 15 MG TAB PO SCH (17:55)
--- NOTE | 2021-09-15 18:55 | Hospitalist Progress Note ---
Date of Service September 15, 2021 Assessment & Plan (1) Ureterolithiasis: Plan: WBC and clinically patient appears much improved today following ureteral stent yesterday therefore suspect this was driving her acute illness. s/p ureteral stent placed 09/[address] Martinez (2) UTI (urinary tract infection): Plan: Catheter associated UTI - WBC 24.5, UA with nitrite, leuk esterase, >30 WBCs, bacteria. - Plascencia catheter in place upon arrival to ED from facility. - Urine culture with Hafnia Alvei and pseudomonas - will switch to ciprofloxacin for 14 days total antibiotics s/p source control (ie. ureteral stent insertion) after 5 days of Zosyn for PNA/diverticulitis Rx (finished 09/15) (3) Pneumonia: Plan: Questionable diagnosis - WBC 24.5, procalcitonin 12.57. CRP 19.93. ESR 25. - Patient reportedly without symptoms, however CXR demonstrates what appears to be a pneumonia at the left lower lung bases. - Blood cultures negative at 48 hours. (4) Acute diverticulitis: Plan: Questionable diagnosis as not reported on repeat CT and only improved after uret erolithiasis dealt with 5 days Zosyn (currently day 09/30) (5) Hypoglycemia: Plan: - Initially lethargic with BGMs 48, 58 at facility. 33 in our ED. Received D50 x3 in ED and D10 drip started, held as sugar increased to 200-300 range. - BGS ACHS. - At home, receives 6 units of Novolin in AM and PM with SSI starting with BGMs > 200. - Per records from [facility], patient's sugars have been erratic from 70s- 400s, BGM at HS last night 452, 94 at 0700 this AM. - She was admitted on 07/26 for similar presentation. At that time, had been worked up for adrenal insufficiency and started on prednisone 20 mg BID since 07/23, suspect current hypoglycemia may be more related to infection. d/c insulin; no hyperglycemic episodes here (6) Hypokalemia: Plan: Repeat daily. Potassium 20 meq BID Repeat BMP in AM (7) Hypomagnesemia: Plan: -1.6 on admission, repeat 2.0 after IV replacement given. (8) CAD (coronary artery disease): Plan: -S/P PCI, CABG -Continue metoprolol, plavix, isosorbide mononitrate. (9) HFrEF (heart failure with reduced ejection fraction): Plan: -She has edema in b/l upper and lower extremities. -Lasix decreased to 40mg PO daily due to slight bump in Cr. Recheck BMP in AM (10) Atrial flutter: Plan: -Previously a fib, reportedly has been a flutter s/p cardioversion in August 2020. -Continue Xarelto, metoprolol, digoxin. (11) Mitral regurgitation: Plan: -Per most recent cardiology note, is not severe, continue to monitor. (12) Anemia: Plan: -Hgb stable -History of gastric bypass surgery ~20 years ago. Receives monthly B12 injections. (13) CKD (chronic kidney disease) stage 3, GFR 30-59 ml/min: Plan: -BUN 55, Cr 1.16, CrCl 28.7. -Avoid nephrotoxic agents, renally dose medications as able. (14) Weakness: Plan: Most likely from disuse and unwillingness to do rehab per his [id number] -Had extensive evaluation for this on last admission, including for adrenal insufficiency, see below. Prednisone held since admission given current infection and BP stable. 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 -ESR/CRP not elevated then, both elevated today, although in setting of infection. Neuro consulted last admission: * --> MRI Brain: no acute findings, no intracranial mass/pathologic enhancement. 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 No associated cord signal abnormality.. Moderate central canal stenosis at C3-C4 and C5-C6, as described above.Multilevel neural foraminal stenosis. Normal cervical cord signal and caliber. 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 (16) Idiopathic polyneuropathy: Plan: -Holding gabapentin in setting of excessive lethargy (17) Adrenal insufficiency: Plan: -Worked up for this on last admission d/t hypoglycemia, weakness, fatigue: -Failed cosyntropin stim test.Baseline cortisol was 15, but she had NO rise in cortisol level with 1mcg cosyntropin x 1. -started prednisone 20mg BID 07/23 and has appt with Nanette SLOAN later this month. -Suspect that her hypoglycemia today is more likely due to infection. Restart prednisone as patient declining in the last 2 days without worsening infection. 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 (19) Leukocytosis: (20) Metabolic encephalopathy: Plan: Secondary to infection as above. Much improved after ureteral stent insertion. Appears to be declining in last 2 days without definitive etiology. Plan: -SCDs, Xarelto for DVT ppx. -DNR/DNI. Disposition - will retake labs in AM. Unclear how much more improved patient will get in hospital setting. Consider discharge if labs normal tomorrow. Admission and Anticipated Discharge Date Admission Date: September 09, 2021 Subjective Patient unaware she is in hospital. This has been the case for the last two days. Monday was a better day. Unclear if she is declining of this is waxing and waning of her underlying dementia. Eventually willing to take her medications today. Discussed care with her daughter in law over the phone. She really hasn't been motivated to get out of bed for over a month now and suspect her continued decline is deconditioning as she hasn't had physical therapy. She does not appear to be motivated for occupational or physical therapy. Review of Systems Review of Systems: All systems reviewed & are unremarkable except as noted in Subjective Physical Exam 2 Constitutional: well developed; + not well nourished and no acute distress ENMT: external ear and nose normal, oropharynx normal Respiratory: normal respiratory effort, lungs clear to auscultation Cardiovascular: Rate/Rhythm: regular rate and regular rhythm Extremities: + edema (generalized 1+ arms, legs and abdomen) Gastrointestinal (Abdomen): Inspection/Auscultation: normal bowel sounds Percussion/Palpation: abdomen soft; abdomen nontender, no guarding and abdomen not rigid Neurologic: moves all extremities, awake and + confused Psychiatric: Orientation: alert, oriented to person and oriented to time (year only); + not oriented to place Affect: euthymic affect Genitourinary: no CVA tenderness Results & Data Results & Data ([facility]) Vital Signs (Past 12 Hours) Vital Signs Temp Pulse Pulse Resp BP Pulse Ox 09/15/21 17:54 74 09/15/21 16:28 36.7 C 73 16 104/70 92 09/15/21 12:18 36.5 C 77 18 104/60 94 09/15/21 08:40 36.4 C L 76 18 109/68 93 PG Care Time/CCT Total # of Minutes Spent Total Time Spent with Patient: Total time spent is greater than 50% in coordination of care (as documented) at patient's floor/unit and/or counseling patient: Coding Level of Care Code 53046 Subseq Hosp Care Lvl 2 Diagnoses Ureterolithiasis N20.1 UTI (urinary tract infection) N39.0 Pneumonia J18.9 Acute diverticulitis K57.92 Hypoglycemia E16.2 Hypokalemia E87.6 Hypomagnesemia E83.42 CAD (coronary artery disease) I25.10 Associated angina: without angina Coronary Disease-Associated Artery/Lesion type: [place] artery [place] vs. transplanted heart: [place] heart HFrEF (heart failure with reduced ejection fraction) I50.20 Atrial flutter I48.92 Mitral regurgitation I34.0 Anemia D64.9 Anemia type: unspecified type CKD (chronic kidney disease) stage 3, GFR 30-59 ml/min N18.30 Weakness R53.1 Temporal lobe epilepsy G40.109 Idiopathic polyneuropathy G60.9 Adrenal insufficiency E27.40 Intrahepatic cholangiocarcinoma C22.1 Leukocytosis D72.829 Metabolic encephalopathy G93.41 (1) CAD (coronary artery disease) Associated angina: without angina Coronary Disease-Associated Artery/Lesion type: [place] artery [place] vs. transplanted heart: [place] heart Qualified Code(s): I25.10 - Atherosclerotic heart disease of [place] coronary artery without angina pectoris (2) Anemia Anemia type: unspecified type Qualified Code(s): D64.9 - Anemia, unspecified
[2021-09-15] MEDS: predniSONE 20 MG TAB PO SCH (20:54)
[2021-09-15] MEDS: ACETAMINOPHEN 325 MG TAB PO PRN (20:57)
[2021-09-16 00:29] VITALS: BP 100/67; PULSE 56; TEMP 96.1; O2SAT 100
[2021-09-16] MEDS: POTASSIUM CHLORIDE CRTAB 20 MEQ TABCR PO SCH (07:56)
[2021-09-16] MEDS: predniSONE 20 MG TAB PO SCH (07:56)
[2021-09-16] MEDS: CIPROFLOXACIN 500 MG TAB PO SCH (07:57)
[2021-09-16] MEDS: FAMOTIDINE 10 MG TABLET PO SCH (07:57)
[2021-09-16] MEDS: FOLIC ACID 1 MG TAB PO SCH (07:57)
[2021-09-16] MEDS: METOPROLOL SUCC 50MG EXT REL TAB PO SCH (07:58)
[2021-09-16] MEDS: FUROSEMIDE 40 MG TAB PO SCH (07:59)
[2021-09-16] MEDS: CLOPIDOGREL BISULFATE 75 MG TAB PO SCH (07:59)
[2021-09-16] MEDS: ISOSORBIDE MONO EXTENDED REL 60 MG TABCR PO SCH (07:59)
[2021-09-16] MEDS: MULTI VIT W/MINERALS LIQUID 15 ML UDP PO SCH (08:00)
[2021-09-16] MEDS: prednisoLONE acetate 1% OP SUSP 5 ML BTL OPR SCH (08:00)
[2021-09-16] MEDS ORDERED: HYDROCORTISONE 10 MG TAB PO SCH ×2 (09:00→17:00)
--- NOTE | 2021-09-16 10:24 | Discharge Summary ---
Date of Service September 16, 2021 Admission HPI Per Admitting Provider Ms. Quezada is an80yo female with a PMH of atrial fibrillation/flutter, ANDREY, CAD s/p PCI, CKD, gastric bypass, ? adrenal insufficiency, and intrahepatic cholangiocarcinoma who presents from [facility] due to lethargy and low blood sugar. Due to patient' decreased mental status, unable to obtain history from patient, historical information provided by ED provider, facility staff. Today he seemed more tired, sleepy, lethargic. Sugar was checked, it was 48. They were unable to obtain an IV site, so they gave her 1 mg of IM glucagon. The sugar only increased to 58, so she was sent here for evaluation. By report, at her care center, her blood pressure was in the 70s systolic. She has been normotensive here in the ED. Son at bedside, he reports there were no events leading up to today's presentation, patient was without any complaints of fever/chills, chest pain, palpitations, SOB, cough, or urinary symptoms. At baseline, she is bedbound due to weakness, however she is cognitively intact. Staff at [facility] did not report a deviation from patient's baseline prior to this AM. In ED, VSS, wnl. Labs significant for WBC 24.85, Hgb 9.1 (~baseline), K+ 2.8, BUN 55, glucose 340, Ca 6.9, Mg 1.6, UA w/ 1+ protein, glucose, nitrite, leuk esterase, >30 WBCs, bacteria. CXR with Left mid to lower lung zone airspace opacity which has progressed in the interval, cardiomegaly with mild congestive change, and trace right and small left pleural effusions. Head CT with chronic and senescent changes as above with no hemorrhage, mass effect, or evidence of acute territorial ischemia. She received Zosyn, doxycycline for empiric coverage for a pneumonia and UTI, D50 bolus x3, KCl 10 mEq x2, and Mg x2. D10 drip @ 100cc/hr started, however held as patient's sugar increased to 200-300s. Hospitalist service was consulted for further evaluation and admission. Principal Diagnosis Catheter associated UTI Discharge Exam Constitutional WD/WN, vitals as above well developed; + not well nourished and no acute distress Eyes + anicteric sclerae; normal pupil size ENMT external ear and nose normal, oropharynx normal Respiratory normal respiratory effort, lungs clear to auscultation Cardiovascular Rate/Rhythm: regular rate and regular rhythm Extremities: + edema (generalized 1+ arms, legs and abdomen) Gastrointestinal (Abdomen) Inspection/Auscultation: normal bowel sounds Percussion/Palpation: abdomen soft; abdomen nontender, no guarding and abdomen not rigid Skin + ulcer (multiple skin tears on both legs (see pictures from wound care)) Neurologic moves all extremities, awake and + confused Psychiatric Orientation: alert, oriented to person and oriented to time (year only); + not oriented to place Affect: euthymic affect Genitourinary no CVA tenderness Discharge Data Allergies Allergy/AdvReac Type Severity Reaction Status Date / Time banana Allergy Unknown HIVES/ITCHI Verified 09/09/21 15:34 NG Iodinated Contrast Media Allergy Unknown "CONTRAST"- Verified 09/09/21 15:34 HIVES/ITCHI NG povidone-iodine Allergy Unknown "drops for Verified 09/09/21 15:34 [From Betadine] eye before injection" - fox/vision trouble soap [From Betadine] Allergy Unknown "drops for Verified 09/09/21 15:34 eye before injection" - fox/vision trouble Consultations 09/09/21 14:04 ED Decision to Admit Stat 09/11/21 12:26 Consult Urology Routine Procedures Performed Operation Date: 09/11/21 15:00 Actual Procedures p Cystoscopy, Rretrograde Pyelogram, Left Ureteral Stent Placement(Left) - Anton Martinez MD Ordered Studies 09/09/21 10:08 CT head/brain wo con Stat 09/09/21 20:16 CT abd pelvis wo con Urgent 09/11/21 FL retrograde includes kub Routine 09/11/21 12:34 CT abd pelvis wo con Stat Hospital Course (1) Ureterolithiasis: WBC and clinically patient appears much improved today following ureteral stent yesterday therefore suspect this was driving her acute illness. s/p ureteral stent placed 09/[address] Martinez Complete 14 days total of antbiotics. (2) UTI (urinary tract infection): Catheter associated UTI - WBC 24.5, UA with nitrite, leuk esterase, >30 WBCs, bacteria. - Plascencia catheter in place upon arrival to ED from facility. - Urine culture with Hafnia Alvei and pseudomonas - switched to ciprofloxacin for 14 days total (9 days of cipro)l antibiotics s/p source control (ie. ureteral stent insertion) after 5 days of Zosyn for PNA/diverticulitis Rx (finished 09/15) -will remove Plascencia catheter at discharge. -Will defer to [facility] if patient needs it reinserted, will give a try of patient off the catheter. (3) Pneumonia: Questionable diagnosis - WBC 24.5, procalcitonin 12.57. CRP 19.93. ESR 25. - Patient reportedly without symptoms, however CXR demonstrates what appears to be a pneumonia at the left lower lung bases. - Blood cultures negative at 48 hours. (4) Acute diverticulitis: Questionable diagnosis as not reported on repeat CT and only improved after ureterolithiasis dealt with 5 days Zosyn (currently day 09/30) (5) Hypoglycemia: - Initially lethargic with BGMs 48, 58 at facility. 33 in our ED. Received D50 x3 in ED and D10 drip started, held as sugar increased to 200-300 range. - BGS ACHS. - At home, receives 6 units of Novolin in AM and PM with SSI starting with BGMs > 200. - Per records from [facility], patient's sugars have been erratic from 70s- 400s, BGM at HS last night 452, 94 at 0700 this AM. - She was admitted on 07/26 for similar presentation. At that time, had been worked up for adrenal insufficiency and started on prednisone 20 mg BID since 07/23, suspect current hypoglycemia may be more related to infection. d/c insulin; no hyperglycemic episodes here -A1C: 5.0 -will hold insulin at discharge. -if Blood sugars go back up to above 200 fasting, may require resuming a lower dose. (6) Hypokalemia: Repeat daily. Potassium 20 meq BID (7) Hypomagnesemia: -1.6 on admission, repeat 2.0 after IV replacement given. (8) CAD (coronary artery disease): -S/P PCI, CABG -Continue metoprolol, plavix, isosorbide mononitrate. (9) HFrEF (heart failure with reduced ejection fraction): -She has edema in b/l upper and lower extremities. -Lasix decreased to 40mg PO daily due to slight bump in Cr. (10) Atrial flutter: -Previously a fib, reportedly has been a flutter s/p cardioversion in August 2020. -Continue Xarelto, metoprolol, digoxin. (11) Mitral regurgitation: -Per most recent cardiology note, is not severe, continue to monitor. (12) Anemia: -Hgb stable -History of gastric bypass surgery ~20 years ago. Receives monthly B12 injections. (13) CKD (chronic kidney disease) stage 3, GFR 30-59 ml/min: -BUN 55, Cr 1.16, CrCl 28.7. -Avoid nephrotoxic agents, renally dose medications as able. (14) Weakness: Most likely from disuse and unwillingness to do rehab per his [id number] -Had extensive evaluation for this on last admission, including for adrenal insufficiency, see below. Prednisone held since admission given current infection and BP stable. 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 -ESR/CRP not elevated then, both elevated today, although in setting of infection. Neuro consulted last admission: * --> MRI Brain: no acute findings, no intracranial mass/pathologic enhancement. 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 No associated cord signal abnormality.. Moderate central canal stenosis at C3-C4 and C5-C6, as described above.Multilevel neural foraminal stenosis. Normal cervical cord signal and caliber. 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 (16) Idiopathic polyneuropathy: -Held gabapentin in setting of excessive lethargy will resume at discharge but at a lower dose. (17) Adrenal insufficiency: -Worked up for this on last admission d/t hypoglycemia, weakness, fatigue: -Failed cosyntropin stim test.Baseline cortisol was 15, but she had NO rise in cortisol level with 1mcg cosyntropin x 1. -started prednisone 20mg BID 07/23 and has appt with Nanette SLOAN later this month. -Suspect that her hypoglycemia today is more likely due to infection. Restart prednisone as patient declining in the last 2 days without worsening infection. -Random cortisol on admission: 57.36 (18) Intrahepatic cholangiocarcinoma: -Unclear history of intrahepatic cholangiocarcinoma; per patient on last admission, this "resolved without treatment"; LFTs wnl. 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 (19) Leukocytosis: (20) Metabolic encephalopathy: Secondary to infection as above. Much improved after ureteral stent insertion. Appears to be declining in last 2 days without definitive etiology. -SCDs, Xarelto for DVT ppx. -DNR/DNI. Total Time Total Time Spent Total Time Spent (In Minutes): 60 Discharge Plan Discharge Items Patient Disposition: Transfer Shelter Fac Reason For Visit: PNEUMONIA, UTI, HYPOGLYCEMIA Discharge Diagnosis: Pneumonia Condition on Discharge: Fair Activity: Resume your previous activity Non-emergency contact: Primary Care Provider Call non-emergency contact if: you have any medication questions Follow-up/Referrals: Cyndie Lozano Rincon [Primary Care Provider] - Diet: Regular Diet Texture: Easy to Chew Add Attending Provider Instructions: You were found to be lethragic. Recommended cutting back on your gabapentin. This was held during your hospital stay, will restart at a lower dose. You will complete 14 days of antibiotics total, you have 15 more doses of ciprofloxacin. Loperamide 2mg will be switched to PRN. May consider restarting daily if diarrhea becomes an issue. however, with cipro, c. diff is always a possibility. Add White Spooler Provider Instructions: The surgery you had was cystoscopy and stent placement. You have a ureteral stent in place. As long as the stent is in place, you may see some blood in the urine. You may have pain in your side when you urinate. We will have you come to the office to discuss whether to remove the stent or whether to perform another surgery to further evaluate for kidney stones. Please call [facility] at [phone] if you have not heard from us within 3 days after your discharge from the hospital. Pending Studies at Discharge: No Stand-Alone Forms: [facility] Skilled Items Patient informed of condition?: Yes DNR: Yes (DNR) Discharge Level of Care: Skilled Communicable Disease: No Discharge Prognosis: Stable Lines: None Urinary Catheter: No Medications and DC Order Prescriptions: New gabapentin 100 mg capsule 100 mg PO HS Qty: 30 RF: 0 ciprofloxacin HCl 500 mg Tablet 500 mg PO BID Qty: 15 RF: 0 Continued isosorbide mononitrate 120 mg tablet extended release 24 hr 240 mg PO QAM RF: 0 nitroglycerin 0.4 mg tablet, sublingual 0.4 mg sublingual UD PRN (Reason: Chest Pain) Qty: 25 RF: 5 metoprolol succinate 200 mg tablet extended release 24 hr See Rx Instructions .ROUTE .COMPLEX Qty: 135 RF: 3 levetiracetam 500 mg tablet 500 mg PO AMHS RF: 0 Ubrelvy 100 mg tablet 100 mg PO .EVERY 24 HOURS PRN (Reason: Migraine Headache) RF: 0 PreserVision AREDS [id number] Tablet 1 tab PO BIDM RF: 0 clopidogrel 75 mg Tablet 75 mg PO QAM Qty: 30 RF: 6 cyanocobalamin (vitamin B-12) 1,000 mcg/mL Solution 1,000 mcg IM MONTHLY RF: 0 Xarelto 15 mg tablet 15 mg PO .AFTER DINNER RF: 0 digoxin 125 mcg (0.125 mg) tablet 125 mcg PO Q2D RF: 0 epinephrine 0.3 mg/0.3 mL auto-injector 0.3 mg subcut UD PRN (Reason: Anaphylaxis) RF: 0 prednisolone acetate 1 % drops,suspension 1 drp OPR QAM RF: 0 famotidine [Acid Machine Joint Cutter (famotidine)] 10 mg Tablet 10 mg PO BID Qty: 60 RF: 0 folic acid 1 mg Tablet 1 mg PO QAM Qty: 30 RF: 0 acetaminophen 325 mg Tablet 650 mg PO Q4 MDD 3g PRN (Reason: Fever Or Pain) RF: 0 furosemide [Lasix] 40 mg tablet 40 mg PO BID RF: 0 calcitriol 0.25 mcg capsule 0.25 mcg PO Q OTHER DAY RF: 0 potassium chloride 20 mEq tablet,ER particles/crystals 20 meq PO DAILY RF: 0 prednisone 20 mg tablet 20 mg PO AMHS RF: 0 Dermoplast (with menthol) 20-0.5 % Aerosol 1 spray TOPICAL TID RF: 0 docusate sodium [Colace] 100 mg Capsule 100 mg PO .EVERY 24 HOURS PRN (Reason: Constipation) RF: 0 loperamide [Imodium A-D] 2 mg Tablet 2 mg PO Q4H PRN (Reason: loose stools) RF: 0 polyethylene glycol 3350 [Miralax] 17 gram/dose Powder 17 g PO .EVERY 24 HOURS PRN (Reason: 3rd day of no bm) RF: 0 dextrose [Dex4 Glucose] 15 gram/59 mL Liquid 4 g PO .EVERY 15 MINUTES PRN (Reason: Hypoglycemia) RF: 0 Discontinued gabapentin 300 mg capsule 900 mg PO HS 90 Days Qty: 270 RF: 1 insulin aspart U-100 100 unit/mL (3 mL) insulin pen 6 unit SUBCUT AMHS RF: 0 loperamide [Imodium A-D] 2 mg Tablet 2 mg PO QAM RF: 0 Discharge Orders: Discharge Order (Routine); Ordered 09/16/21 Ordered By: Misael Lehman Admission Data Admit Date/Time: 09/09/21 14:38 Attending Provider: Miasel Lehman Admit Provider: Marcus Dominguez Primary Care Provider: Cyndie Lozano Rincon Other Providers: Cyndie L[facility] ; Marcus Dominguez ; Anton Martinez Coding Level of Care Code D/C DAY MANAGEMENT >30 MINS Diagnoses Ureterolithiasis N20.1 UTI (urinary tract infection) N39.0 Pneumonia J18.9 Acute diverticulitis K57.92 Hypoglycemia E16.2 Hypokalemia E87.6 Hypomagnesemia E83.42 CAD (coronary artery disease) I25.10 Associated angina: without angina Coronary Disease-Associated Artery/Lesion type: [place] artery [place] vs. transplanted heart: [place] heart HFrEF (heart failure with reduced ejection fraction) I50.20 Atrial flutter I48.92 Mitral regurgitation I34.0 Anemia D64.9 Anemia type: unspecified type CKD (chronic kidney disease) stage 3, GFR 30-59 ml/min N18.30 Weakness R53.1 Temporal lobe epilepsy G40.109 Idiopathic polyneuropathy G60.9 Adrenal insufficiency E27.40 Intrahepatic cholangiocarcinoma C22.1 Leukocytosis D72.829 Metabolic encephalopathy G93.41
== END 2021-09-16 11:07 | DRG 659 ==
LOC: ED 09:57 → SUATTDRO 14:38 → 2N 14:38 → 2W 09-14 02:52